=== PATIENT | male | born 1965 | race Caucasian/White ===

== ENCOUNTER 2020-01-14 12:52 | Outpatient (REF) | payer OTHER, SELFPAY | END 2020-01-14 12:53 | disposition home or self-care (01) | LOC: HO.LAB 12:52 | PROVIDERS: PCP Nurse Practitioner Family; Visit Provider Internal Medicine | DX: Z20.828 Contact with and (suspected) exposure to other viral communicable diseases (principal) | CPT/HCPCS: 87635 ==

== ENCOUNTER 2020-01-15 09:53 | Emergency (ER) | payer OTHER, SELFPAY ==
--- NOTE | 2020-01-15 10:25 | ED.ABDPAIN ---
HPI - Abdominal Pain General Chief Complaint: Abdominal Pain Stated Complaint: abd pain Time Seen by Provider: 01/15/20 10:25 Source: patient Mode of arrival: ambulatory Limitations: no limitations History of Present Illness MD elicited complaint: abdominal pain and flank pain Pertinent past history: myocardial infarction Onset (ago): day(s) (today) Pain Consistency: constant Location: LUQ and L flank Quality: burning Radiation: none Migration to: no migration Exacerbating factors: nothing Relieving factors: nothing Context: foreign travel Associated symptoms: nausea and chills Related Data Allergies Allergy/AdvReac Type Severity Reaction Status Date / Time bee pollen [BEE STINGS] Allergy Severe THROAT Unverified 12/19/19 16:49 SWELLING raspberry [RASPBERRY] Allergy Severe UNKNOWN Unverified 12/19/19 16:49 tadalafil [From CIALIS] Allergy Severe ANAPHYLAXIS Unverified 12/19/19 16:49 wool Allergy Intermediate RASH Unverified 12/19/19 16:49 cialis Allergy Unknown anaphylaxis Uncoded 09/26/19 00:00 hornet venom Allergy Unknown Uncoded 09/26/19 00:00 raspberry Allergy Unknown anaphylaxis Uncoded 09/26/19 00:00 Review of Systems Review of Systems Constitutional : No Weight loss, No Fever, positive Chills ENT/Mouth : No sore throat, No Rhinorrhea Eyes: No Swelling, No Redness Cardiovascular : No Chest Pain, No SOB, NoEdema Respiratory : No Cough, No Sputum, No Wheezing Gastrointestinal : Positive Nausea, no Vomiting, positive Diarrhea x 3, positive abdominal Pain, No Hematochezia, No Melena Genitourinary : No Dysuria, No Urinary Frequency, No Hematuria, No Urgency Musculoskeletal : No joint pain, No Myalgias, No Joint Swelling Skin : No Skin Lesions, No rash Neuro : No Weakness, No Numbness, No Dizziness, No Headache Psych : No Anxiety/Panic, No Depression Heme/Lymph: No Bruising, No Lymphadenopathy Endocrine : No Polyuria, No Polydipsia All other systems reviewed and are negative. Physical Exam Vital Signs: Vital Signs: Vital Signs Temp Pulse Resp BP Pulse Ox 01/15/20 10:54 98.9 F 93 18 136/88 96 Body Mass Index 28.5 Appearance: Alert. Oriented X3. No acute distress. Eyes: Pupils equal, round and reactive to light. ENT: Pharynx normal. Neck: Normal inspection. Neck supple. CVS: Normal heart rate and rhythm. Pulses normal. Respiratory: No respiratory distress. Breath sounds normal. Abdomen: Soft and mild ttp L abdomen no rebound or guarding Skin: Skin warm and dry. Normal skin color. Normal skin turgor. Extremities: No lower extremity edema. No calf ttp Neuro: Oriented X 3. No motor deficit. No sensory deficit. Course Course Course Narrative: negative CT scan and cxr other than constipation at this time BS elevated hydrated and insulin will refer to PCP, can be managed as outpatient at this time MDM - Abdominal Pain MDM Narrative Medical decision making narrative: 54 yo male with MM hx of RI (cocaine related) cardiac arrest due to substance abuse here with L sided abdominal pain just tested for COVID c/o diarrhea, will need labs, troponin, EKG, CXR, CT scan for renal colic, dispo per results and findings Lab Data Result diagrams: 01/15/20 11:19 01/15/20 11:19 Labs: Lab Results 01/15/20 01/15/20 01/15/20 Range/Units 11:19 11:19 11:19 WBC 5.4 (4.8-10.8) X10*3/uL RBC 4.79 (4.60-5.80) X10*6/uL Hgb 13.1 L (14.0-18.0) g/dl Hct 40.3 L (42-52) % MCV 84.1 (80-98) fL MCH 27.3 (27.0-33.0) pg MCHC 32.5 (31.0-36.0) g/dl RDW 13.6 (11.0-16.0) % Plt Count 233 (160-400) X10*3/uL MPV 12.5 H (9.4-12.4) fL Immature Gran % (Auto) 0.2 (0.0-0.4) % Neut % (Auto) 64.7 (45-73) % Lymph % (Auto) 21.8 (20-40) % [place] % (Auto) 9.6 (2-11) % Eos % (Auto) 3.0 (0-4) % Baso % (Auto) 0.7 (0-2) % Lymph # (Auto) 1.2 (1.2-4.9) X10*3/uL [place] # (Auto) 0.5 (0.1-1.2) X10*3/uL Eos # (Auto) 0.2 (0.0-0.4) X10*3/uL Baso # (Auto) 0.0 (0.0-0.2) X10*3/uL Abs Immat Gran (auto) 0.01 (0.00-0.03) X10*3/uL Absolute Neuts (auto) 3.5 (2.0-8.3) X10*3/uL Absolute Nucleated RBC 0.000 (0.0-0.012) X10*3/uL Nucleated RBC % (auto) 0.0 (0.0-0.2) /100WBC Hold Blue Top SEE NOTE Sodium 131 L (135-145) mmol/L Potassium 5.3 H (3.3-5.1) mmol/l Chloride 95 L (96-108) mmol/L Carbon Dioxide 28 (22-29) mmol/L Anion Gap 13 (12-20) BUN 19 H (9-16) mg/dL Creatinine 1.36 (0.5-1.4) mg/dL Estim Creat Clear Calc 82.2 Estimated GFR 54 Random Glucose 492 H* (60-115) mg/dL Calcium 9.3 (8.4-10.2) mg/dL Magnesium 1.7 (1.6-2.6) mg/dL Total Bilirubin 0.5 (0.0-1.0) mg/dL Direct Bilirubin < 0.2 (0.0-0.5) mg/dL AST 23 (5-37) U/L ALT 28 (0-40) U/L Alkaline Phosphatase 110 (39-117) U/L Troponin I High Sens (<3.5-35.0) ng/L Total Protein 7.6 (6.5-8.0) g/dL Albumin 4.2 (3.5-5.0) g/dL Lipase 50 (8-78) U/L Urine Color Urine Appearance Urine pH (5.0-8.0) Ur Specific [place] (1.005-1.025) Urine Protein (NEG-TRACE) MG/DL Urine Glucose (UA) (NEG) MG/DL Urine Ketones (NEG) MG/DL Urine Blood (NEG) Urine Nitrite (NEG) Ur Leukocyte Esterase (NEG) Urine RBC (0) /HPF Urine WBC (0-4) /HPF Ur Squamous Epith Cells /LPF Urine Bacteria /LPF Urine Opiates Screen (Not Detect) Ur Barbiturates Screen (Not Detect) Ur Phencyclidine Scrn (Not Detect) Ur Amphetamines Screen (Not Detect) U Benzodiazepines Scrn (Not Detect) Urine Cocaine Screen (Not Detect) U Marijuana (THC) Screen (Not Detect) 01/15/20 01/15/20 01/15/20 Range/Units 11:19 11:19 11:19 WBC (4.8-10.8) X10*3/uL RBC (4.60-5.80) X10*6/uL Hgb (14.0-18.0) g/dl Hct (42-52) % MCV (80-98) fL MCH (27.0-33.0) pg MCHC (31.0-36.0) g/dl RDW (11.0-16.0) % Plt Count (160-400) X10*3/uL MPV (9.4-12.4) fL Immature Gran % (Auto) (0.0-0.4) % Neut % (Auto) (45-73) % Lymph % (Auto) (20-40) % Twiggs % (Auto) (2-11) % Eos % (Auto) (0-4) % Baso % (Auto) (0-2) % Lymph # (Auto) (1.2-4.9) X10*3/uL [place] # (Auto) (0.1-1.2) X10*3/uL Eos # (Auto) (0.0-0.4) X10*3/uL Baso # (Auto) (0.0-0.2) X10*3/uL Abs Immat Gran (auto) (0.00-0.03) X10*3/uL Absolute Neuts (auto) (2.0-8.3) X10*3/uL Absolute Nucleated RBC (0.0-0.012) X10*3/uL Nucleated RBC % (auto) (0.0-0.2) /100WBC Hold Blue Top Sodium (135-145) mmol/L Potassium (3.3-5.1) mmol/l Chloride (96-108) mmol/L Carbon Dioxide (22-29) mmol/L Anion Gap (12-20) BUN (9-16) mg/dL Creatinine (0.5-1.4) mg/dL Estim Creat Clear Calc Estimated GFR Random Glucose (60-115) mg/dL Calcium (8.4-10.2) mg/dL Magnesium (1.6-2.6) mg/dL Total Bilirubin (0.0-1.0) mg/dL Direct Bilirubin (0.0-0.5) mg/dL AST (5-37) U/L ALT (0-40) U/L Alkaline Phosphatase (39-117) U/L Troponin I High Sens < 3.5 (<3.5-35.0) ng/L Total Protein (6.5-8.0) g/dL Albumin (3.5-5.0) g/dL Lipase (8-78) U/L Urine Color YELLOW Urine Appearance CLEAR Urine pH 5.5 (5.0-8.0) Ur Specific [place] 1.010 (1.005-1.025) Urine Protein NEG (NEG-TRACE) MG/DL Urine Glucose (UA) >=1000 H (NEG) MG/DL Urine Ketones NEG (NEG) MG/DL Urine Blood NEG (NEG) Urine Nitrite NEG (NEG) Ur Leukocyte Esterase NEG (NEG) Urine RBC 0-2 (0) /HPF Urine WBC 0 (0-4) /HPF Ur Squamous Epith Cells NONE /LPF Urine Bacteria NONE /LPF Urine Opiates Screen Not Detected (Not Detect) Ur Barbiturates Screen Not Detected (Not Detect) Ur Phencyclidine Scrn Not Detected (Not Detect) Ur Amphetamines Screen Not Detected (Not Detect) U Benzodiazepines Scrn Not Detected (Not Detect) Urine Cocaine Screen POSITIVE H (Not Detect) U Marijuana (THC) Screen Not Detected (Not Detect) ECG Data ECG interpretation date: 01/15/20 ECG interpretation time: 12:49 Interpretation: Rate: 76 Rhythm: NSR [place]: normal , LVH Normal P waves. Normal AHMET. Normal QRS complex. ST T wave : normal qTC: normal prior studies: no acute ischemia The study has been interpreted contemporaneously by me. . Discharge Plan Discharge Clinical Impression: Abdominal pain, Cocaine abuse, Hyperglycemia Patient Disposition: Home, Self-Care Instructions: Cocaine Abuse (ED), Abdominal Pain (ED), Diabetic Hyperglycemia (ED) Referrals: Za Hahn NP [Primary Care Provider] - 2 days PMF[facility] Past Medical History Attestation statement: The following information was validated with the patient. Source: old records reviewed Medical History Anxiety Asthma Depression Diabetes GERD (gastroesophageal reflux disease) Substance abuse Social History Social History Smoking Status: Never smoker Substance Use Type: Crack/Cocaine and Marijuana Substance Use Frequency: Occasionally Advance Directives: No Advance Directives Information Provided: No
--- NOTE | 2020-01-15 10:48 | CT_ITS ---
EXAMINATION: CT ABDOMEN AND PELVIS WITHOUT CONTRAST CLINICAL INFORMATION: Left-sided flank pain. Evaluate for stone. COMPARISON: Previous CT scans most recent August 2019 TECHNIQUE: Axial images through the abdomen and pelvis without oral or IV contrast. Sagittal and coronal reconstructions on the technologist workstation were performed. Patient dose 8 5 7 mg/cm. FINDINGS: The lung bases are clear. The liver is low in attenuation suggestive of fatty infiltration. The gallbladder is contracted. No focal liver lesion or biliary duct dilatation. The spleen, pancreas, and adrenal glands are unremarkable. There is a small low-attenuation lesion in the upper pole of the left kidney measuring 1 cm probably representing a cyst. No renal stone or hydronephrosis is seen. No ureteral dilatation or ureteral stone is seen. The bladder is unremarkable. The prostate gland is unremarkable. There is stool throughout the colon questionable for mild constipation. There are no dilated loops of bowel to suggest obstruction. The appendix is unremarkable. The stomach is unremarkable. There is a small umbilical hernia containing fat. There is fat in both inguinal canals. Vascular structures are unremarkable. No ascites or adenopathy is seen. There are old bilateral anterior rib fractures. There are mild degenerative disc disease of the lower lumbar spine. IMPRESSION: No stone or hydronephrosis seen. Probable small left renal cyst. Fatty liver. Stool throughout the colon questionable for constipation. EXAMINATION: Chest x-ray CLINICAL INFORMATION: Pain COMPARISON: Previous chest x-rays most recent August 2019 TECHNIQUE: AP portable chest FINDINGS: The cardiac and mediastinal contours are stable. The lungs are clear. There is no pleural effusion or pneumothorax. Bony structures are unremarkable. IMPRESSION: No evidence for acute disease in the chest.
--- NOTE | 2020-01-15 10:48 | ECG_ITS ---
Test Reason : ABDMINL PAIN Blood Pressure : / mmHG Vent. Rate : 076 BPM Atrial Rate : 076 BPM P-R Int : 182 ms QRS Dur : 104 ms QT Int : 400 ms P-R-T Axes : 038 -02 014 degrees QTc Int : 450 ms Normal sinus rhythm Voltage criteria for left ventricular hypertrophy Abnormal ECG When compared with ECG of 09-SEP-2019 16:25, Premature ventricular complexes are no longer Present Referred By: Sully Hall Electronically Signed By:BLANQUITA ZARATE MD
[2020-01-15 10:54] VITALS: BP 136/88; PULSE 93; RESP 18; TEMP 37.2; O2SAT 96; BMI 28.5
[2020-01-15] MEDS: Magnesium Hydrox/Alum Hydrox 30 ML ORAL.SUSP PO (11:22)
[2020-01-15] MEDS: Lidocaine HCl Viscous 2 % 15 ML SOLUTION MUCOUS MEM (11:22)
--- NOTE | 2020-01-15 11:27 | PC.NURSE ---
P[T HERE FOR COVID TEST. PREVIOUS + RESULT 5-6 WKS AGO, ROOMMATE RECENTLY RETESTED +. C/O ABD PAIN SINCE THIS AM, SHARP L SIDED, STARTS IN L FLANK. NO HX KIDNEY STONES. DENIES VOMTIING, FEVERS. SEVERAL SOFT STOOLS SINCE YESTERDAY. 10 PAIN, MEDICATED PER EMR. MISSED MTD DOSE THIS AM TO COME IN TO HOSPITAL. LABS SENT, CT SCAN AND CXR COMPLETED.
[2020-01-15 11:39] LABS: MANUAL DIFF FLAG NO
[2020-01-15 11:43] LABS: Basophils Percent Auto 0.7 % (0-2); Eosinophils Absolute Auto 0.2 X10*3/uL (0.0-0.4); Hematocrit 40.3 % (42-52); Hemoglobin 13.1 g/dl (14.0-18.0); Imm Gran Abs Auto 0.01 X10*3/uL (0.00-0.03); Imm Gran Pct Auto 0.2 % (0.0-0.4); Lymphocytes Absolute Auto 1.2 X10*3/uL (1.2-4.9); Lymphocytes Percent Auto 21.8 % (20-40); Mean Corpuscular HGB Conc 32.5 g/dl (31.0-36.0); Mean Corpuscular Hemoglobin 27.3 pg (27.0-33.0); Mean Corpuscular Volume 84.1 fL (80-98); Mean Platelet Volume 12.5 fL (9.4-12.4); Monocytes Absolute Auto 0.5 X10*3/uL (0.1-1.2); Monocytes Percent Auto 9.6 % (2-11); Neutrophils Absolute Auto 3.5 X10*3/uL (2.0-8.3); Neutrophils Percent Auto 64.7 % (45-73); Platelet Count 233 X10*3/uL (160-400); Red Blood Count 4.79 X10*6/uL (4.60-5.80); Red Cell Distribution Width 13.6 % (11.0-16.0); White Blood Count 5.4 X10*3/uL (4.8-10.8)
[2020-01-15 11:48] LABS: Glucose Urine UA >=1000 MG/DL (NEG); Leukocyte Esterase Urine NEG (NEG); Nitrite Urine NEG (NEG); PH 5.5 (5.0-8.0); Urine Blood NEG (NEG); Urine Ketones NEG (NEG); Urine Protein NEG (NEG-TRACE)
[2020-01-15 11:50] LABS: Appearance Urine CLEAR; Color Urine YELLOW
[2020-01-15 12:00] LABS: RBC Urine 0-2 /HPF (0); WBC Urine 0 /HPF (0-4)
[2020-01-15 12:22] LABS: Amphetamine Screen Urine Not Detected (Not Detect); Barbiturates, Urine Not Detected (Not Detect); Benzodiazepines Screen Urine Not Detected (Not Detect); Cannabinoid Screen Urine Not Detected (Not Detect); Cocaine Screen Urine POSITIVE (Not Detect); Opiate Screen Urine Not Detected (Not Detect); Phencyclidine Screen Urine Not Detected (Not Detect); Troponin-I High Sensitivity < 3.5 ng/L (<3.5-35.0)
[2020-01-15 12:29] LABS: Alanine Aminotransferase 28 U/L (0-40); Albumin Level 4.2 g/dL (3.5-5.0); Alkaline Phosphatase 110 U/L (39-117); Anion Gap 13 (12-20); Aspartate Amino Transferase 23 U/L (5-37); Bilirubin Direct < 0.2 mg/dL (0.0-0.5); Bilirubin Total 0.5 mg/dL (0.0-1.0); Blood Urea Nitrogen 19 mg/dL (9-16); Calcium 9.3 mg/dL (8.4-10.2); Carbon Dioxide 28 mmol/L (22-29); Chloride 95 mmol/L (96-108); Creatinine Clr Calc Pharmacy 82.2; Estimated Glomerular Filt Rate 54; Glucose Random 492 mg/dL (60-115); Lipase 50 U/L (8-78); Magnesium 1.7 mg/dL (1.6-2.6); Potassium 5.3 mmol/l (3.3-5.1); Sodium 131 mmol/L (135-145); Total Protein 7.6 g/dL (6.5-8.0)
[2020-01-15] MEDS: 0.9 % Sodium Chloride 1,000 ML 999 ML IVCONT (12:39)
[2020-01-15] MEDS: Insulin Regular, Human 100 UNIT/ML 3 ML VIAL 10 UNIT SUBCUT (12:39)
[2020-01-15 15:15] LABS: Glucose, Whole Blood 404 mg/dL (60-115)
[2020-01-15 18:33] LABS: Glucose, Whole Blood 340 mg/dL (60-115)
== END 2020-01-15 14:21 | disposition home or self-care (01) ==
PROVIDERS: Emergency Provider Emergency Medicine; PCP Nurse Practitioner Family
DX: R10.9 Unspecified abdominal pain (principal); F14.10 Cocaine abuse, uncomplicated; E11.65 Type 2 diabetes mellitus with hyperglycemia; Z79.899 Other long term (current) drug therapy
CPT/HCPCS: 36415; 71045; 74176; 80048; 80076; 80307; 81001; 82947; 83690; 83735; 84484; 85025; 93005; 96360; 99284

== ENCOUNTER → 2020-05-05 13:16 | Outpatient (BNVA) | payer OTHER, SELFPAY | PROVIDERS: PCP Nurse Practitioner Family; Visit Provider Internal Medicine Pulmonary Disease ==

== ENCOUNTER → 2020-05-14 13:16 | Outpatient (BNVA) | payer OTHER, SELFPAY | PROVIDERS: PCP Nurse Practitioner Family; Visit Provider Internal Medicine Pulmonary Disease | DX: J45.40 Moderate persistent asthma, uncomplicated (principal); Z91.09 Other allergy status, other than to drugs and biological substances | CPT/HCPCS: 99212 ==

== ENCOUNTER 2020-05-14 13:46 | Emergency (ER) | payer OTHER, SELFPAY ==
--- NOTE | ~2020-05-14 | CT_ITS ---
EXAMINATION: CT BRAIN AND CT CERVICAL SPINE WITHOUT CONTRAST. CLINICAL INFORMATION: Fall. COMPARISON: None TECHNIQUE: 5 mm thin axial and reformatted 2 mm thin sagittal and coronal images of brain were obtained. Subsequently axial 3 mm thin and reformatted 2 mm thin sagittal and coronal images of cervical spine were obtained. DLP [id number]. FINDINGS: Brain: There is no acute intra-axial, extra-axial bleed, masses or midline shift. There is no acute infarction in evolution. The lateral ventricles are symmetrical in size and configuration without enlargement. The cruz to white matter disease is maintained normal. Bone windows reveal no calvarial abnormality. There is no scalp soft tissue abnormality. Bilateral paranasal sinuses and mastoid air cells are well-aerated. Cervical spine: There is mild straightening of cervical lordosis. The vertebral heights and alignment is normal. There is loss of C5-C6 disc height with mild ventral and posterior spondylosis. The craniovertebral junction and C1-C2 alignment is normal. The prevertebral and parapharyngeal soft tissues are normal. The thyroid lobes are symmetrical and normal except for a punctate calcification left lobe.. The airway is widely patent. No abnormal neck lymph nodes or mass seen. CT/CT head/brain wo con IMPRESSION: No acute intracranial process seen. No acute fracture or dislocation cervical spine except for mild straightening of cervical lordosis. Degenerative disc changes with spondylosis C5-C6 disc level.
--- NOTE | ~2020-05-14 | CT_ITS ---
EXAMINATION: CT BRAIN AND CT CERVICAL SPINE WITHOUT CONTRAST. CLINICAL INFORMATION: Fall. COMPARISON: None TECHNIQUE: 5 mm thin axial and reformatted 2 mm thin sagittal and coronal images of brain were obtained. Subsequently axial 3 mm thin and reformatted 2 mm thin sagittal and coronal images of cervical spine were obtained. DLP [id number]. FINDINGS: Brain: There is no acute intra-axial, extra-axial bleed, masses or midline shift. There is no acute infarction in evolution. The lateral ventricles are symmetrical in size and configuration without enlargement. The cruz to white matter disease is maintained normal. Bone windows reveal no calvarial abnormality. There is no scalp soft tissue abnormality. Bilateral paranasal sinuses and mastoid air cells are well-aerated. Cervical spine: There is mild straightening of cervical lordosis. The vertebral heights and alignment is normal. There is loss of C5-C6 disc height with mild ventral and posterior spondylosis. The craniovertebral junction and C1-C2 alignment is normal. The prevertebral and parapharyngeal soft tissues are normal. The thyroid lobes are symmetrical and normal except for a punctate calcification left lobe.. The airway is widely patent. No abnormal neck lymph nodes or mass seen. CT/CT cervical spine wo con IMPRESSION: No acute intracranial process seen. No acute fracture or dislocation cervical spine except for mild straightening of cervical lordosis. Degenerative disc changes with spondylosis C5-C6 disc level.
--- NOTE | ~2020-05-14 | XR_ITS ---
EXAMINATION: XR SHOULDER, RIGHT CLINICAL INFORMATION: Fall, trauma, pain COMPARISON: Right shoulder radiographs 12/20/2014 TECHNIQUE: Right shoulder is imaged in 4 views. FINDINGS: There is no fracture or dislocation. The acromioclavicular alignment is normal. The right lung apex shows no pneumothorax. There are borderline degenerative changes acromioclavicular joint. Small subcortical cysts present greater tuberosity. No definite rotator cuff calcifications. XR/XR shoulder RT min 2V IMPRESSION: No fracture or dislocation.
--- NOTE | ~2020-05-14 | XR_ITS ---
EXAMINATION: XR FOREARM, RIGHT CLINICAL INFORMATION: Fall, trauma, pain COMPARISON: None TECHNIQUE: AP and lateral views of the right forearm were obtained. FINDINGS: There is no fracture or dislocation. The ulnar variance is near neutral. Bony mineralization is normal. No elbow capsular effusion. XR/XR forearm RT 2V IMPRESSION: No fracture or dislocation or elbow capsular effusion.
[2020-05-14 14:03] VITALS: BP 130/85; PULSE 86; RESP 16; TEMP 36.8; O2SAT 97; BMI 31.8
--- NOTE | 2020-05-14 14:41 | ED.GENADULT ---
HPI - General Adult General Chief complaint: General Medical Stated complaint: fell hurts all over Time Seen by Provider: 05/14/20 14:29 Source: patient Mode of arrival: ambulatory Limitations: no limitations History of Present Illness HPI narrative: Patient presents to ED due to falling on his right arm and right shoulder. Patient states he was in the street yesterday and he slipped on black ice and fell onto his right arm and right forearm. Patient states he did his head and had headache this morning but it resolved. Patient states he is on a aspirin. Patient denies any chest pain abdominal pain shortness of breath, headache, dizziness, blood in stool, vomiting blood, pain in lower extremity, or pain in left upper extremity. Related Data Previous Rx's Medication Instructions Recorded sennosides [senna] 8.6 mg PO BEDTIME PRN #30 cap 01/15/20 fluticasone 500 mcg-salmeterol 50 1 ea INHALATION BID #60 cap 05/06/20 mcg/dose blistr powdr for inhalation acetaminophen [Tylenol] 325 mg PO QID PRN #28 cap 05/14/20 Allergies Allergy/AdvReac Type Severity Reaction Status Date / Time bee pollen [BEE STINGS] Allergy Severe THROAT Verified 05/14/20 13:19 SWELLING raspberry [RASPBERRY] Allergy Severe UNKNOWN Verified 05/14/20 13:19 tadalafil [From CIALIS] Allergy Severe ANAPHYLAXIS Verified 05/14/20 13:19 wool Allergy Intermediate RASH Verified 05/14/20 13:19 Review of Systems Review of Systems: Yes all other systems are reviewed and are negative Constitutional: Constitutional: Reports as per HPI, Reports no additional constitutional complaints and Reports headache(s) (Resolved) Eyes: Eyes: Reports as per HPI and Reports no additional eye complaints ENT: Reports system reviewed and no additional complaints, except as documented, Reports as per HPI and Reports headache(s) (Resolved) Cardiovascular: Cardiovascular: Reports as per HPI and Reports no additional cardiovascular complaints Respiratory: Respiratory: Reports as per HPI and Reports no additional respiratory complaints Gastrointestinal: Gastrointestinal: Reports as per HPI and Reports no additional gastrointestinal complaints Genitourinary: Genitourinary: Reports no additional male genitourinary complaints and Reports as per HPI Musculoskeletal: Musculoskeletal: Reports no additional musculoskeletal complaints and Reports as per HPI Comments: Right shoulder and right forearm pain Neurologic: Reports system reviewed and no additional complaints, except as documented, Reports as per HPI and Reports headache(s) (Resolved) Psychiatric: Psychiatric: Reports no additional psychiatric complaints and Reports as per HPI [facility] Past Medical History Medical History Anxiety Asthma Depression Diabetes GERD (gastroesophageal reflux disease) Moderate persistent asthma Substance abuse Social History Social History Smoking Status: Never smoker Substance Use Type: Crack/Cocaine and Marijuana Advance Directives: No Advance Directives Information Provided: No Physical Exam Vital Signs: Vital Signs: Last Vital Signs Temp 95.6 F L 05/14/20 16:00 Pulse 78 05/14/20 16:00 Resp 18 05/14/20 16:00 BP 110/72 05/14/20 16:00 Pulse Ox 95 05/14/20 16:00 Body Mass Index 31.8 Const: General: cooperative, healthy appearing, comfortable, no acute distress, well developed, alert, awake and Physically active Orientation/consciousness: patient oriented x3 HENMT: Head: Yes normal to inspection, Yes No palpable skull fracture present, Yes normocephalic, Yes atraumatic, No abrasion, No Jerome's sign, No contusion, No cranial bruits, No hematoma, No laceration, No occipital foramen tenderness, No palpable skull fracture, No raccoon eyes, No scalp lesion, No scalp tenderness, No Temporal artery tenderness present and No periorbital ecchymosis Eyes: General: appearance normal, both eyes and all related structures Neck: Neck: Yes normal visual inspection, Yes full ROM, Yes no lymphadenopathy, Yes no meningeal signs, Yes trachea midline, Yes supple and No tender Chest: Other: Negative for ecchymosis Chest palpation & inspection: normal inspection of the chest and normal palpation of entire chest wall Resp: Effort & Inspection: normal respiratory effort and able to speak in complete sentences Auscultation: clear to auscultation bilaterally Cardio: Jugular venous distension: no JVD Heart sounds: S1 normal heart sound present and S2 normal heart sound present GI: Inspection: Yes normal to inspection and No abdominal wall ecchymosis Palpation (GI): Soft to palpation, not firm, nontender, no guarding and not rigid : General: No CVA tenderness and Yes no CVA tenderness Back/Spine/Pelvis: Back: no CVA tenderness, No CVA tenderness and No back tenderness Skin: General skin exam: no rashes or lesions noted and elasticity normal Neuro: General: patient oriented x3, gait normal, no meningeal signs and CN's II-XI intact bilaterally Cranial nerves: Yes CN's II-XII intact bilaterally Extrem: Other: Right upper extremity: Positive for shoulder and forearm tenderness. Negative for any ecchymosis or bruising of right upper extremity. Negative for any obvious deformity. Vascular/Neuro/motor extremities intact. All other extremities: Motor/neuro/vascular exam is intact. Negative for signs of trauma. Negative for any tenderness Psych: Appearance: grossly normal, well kempt and not disheveled Course Course Course Narrative: Due to being on aspirin patient will be sent for head CT and C-spine. Patient also sent for right arm and right forearm x-ray Reevaluation(s) Reevaluation #1: Upper extremity x-rays negative for fracture. Head CT C-spine came back normal. Patient is safe for discharge Time: 16:07 Medical Decision Making MDM Narrative Medical decision making narrative: Fall Discharge Plan Discharge Clinical Impression: Fall Patient Disposition: Home, Self-Care Instructions: Contusion in Adults (ED), Fall Prevention (ED) Additional Instructions: Return to the ED immediately for any abdominal pain, chest pain, shortness of breath, swelling of upper extremity, redness, coughing up blood, vomiting blood, abdominal pain, rectal bleeding, headache, dizziness, blood in urine, or any other concerning symptoms. Prescriptions: New acetaminophen [Tylenol] 325 mg capsule 325 mg PO QID PRN (Reason: pain) Qty: 28 RF: 0 No Action fluticasone propion-salmeterol 500-50 mcg/dose blister with device 1 ea inhalation BID Qty: 60 RF: 6 senna 8.6 mg capsule 8.6 mg PO BEDTIME PRN (Reason: constipation) Qty: 30 RF: 0 Referrals: Za Hahn NP [Primary Care Provider] - 2 days (Fall) Interventions: ED Discharge Assessment Last Done: 05/14/20 16:26 Discharge Date/Time: 05/14/20 16:26 Print Language: Omani
[2020-05-14 16:00] VITALS: BP 110/72; PULSE 78; RESP 18; TEMP 35.3; O2SAT 95
== END 2020-05-14 16:26 | disposition home or self-care (01) ==
PROVIDERS: Emergency Provider Internal Medicine; PCP Nurse Practitioner Family
DX: S40.011A Contusion of right shoulder, initial encounter (principal); M79.601 Pain in right arm; R51.9 Headache, unspecified; F14.90 Cocaine use, unspecified, uncomplicated; F12.90 Cannabis use, unspecified, uncomplicated; M54.2 Cervicalgia; W00.0XXA Fall on same level due to ice and snow, initial encounter; Y93.01 Activity, walking, marching and hiking; Y92.9 Unspecified place or not applicable; Y99.9 Unspecified external cause status; Z79.899 Other long term (current) drug therapy
CPT/HCPCS: 70450; 72125; 73030; 73090; 99284

== ENCOUNTER 2020-09-08 14:26 | Outpatient (REF) | payer OTHER, SELFPAY ==
--- NOTE | 2020-09-08 14:35 | ECG_ITS ---
Test Reason : QT PROLONGNATION Blood Pressure : / mmHG Vent. Rate : 083 BPM Atrial Rate : 083 BPM P-R Int : 172 ms QRS Dur : 104 ms QT Int : 386 ms P-R-T Axes : 045 013 031 degrees QTc Int : 453 ms Normal sinus rhythm Minimal voltage criteria for LVH, may be normal variant Nonspecific T wave abnormality Abnormal ECG When compared with ECG of 15-JAN-2020 12:24, No significant change was found Referred By: Saima Truong Electronically Signed By:ARYA SRINIVASAN MD
[2020-09-08 15:36] LABS: MANUAL DIFF FLAG NO
[2020-09-08 15:53] LABS: Basophils Percent Auto 0.4 % (0-2); Eosinophils Absolute Auto 0.1 X10*3/uL (0.0-0.4); Eosinophils Percent Auto 0.9 % (0-4); Hematocrit 42.4 % (42-52); Hemoglobin 14.1 g/dl (14.0-18.0); Imm Gran Abs Auto 0.02 X10*3/uL (0.00-0.03); Imm Gran Pct Auto 0.3 % (0.0-0.4); Lymphocytes Absolute Auto 1.4 X10*3/uL (1.2-4.9); Lymphocytes Percent Auto 20.2 % (20-40); Mean Corpuscular HGB Conc 33.3 g/dl (31.0-36.0); Mean Corpuscular Hemoglobin 27.9 pg (27.0-33.0); Mean Corpuscular Volume 83.8 fL (80-98); Monocytes Absolute Auto 0.5 X10*3/uL (0.1-1.2); Monocytes Percent Auto 7.5 % (2-11); Neutrophils Absolute Auto 4.8 X10*3/uL (2.0-8.3); Neutrophils Percent Auto 70.7 % (45-73); Platelet Count 185 X10*3/uL (160-400); Red Blood Count 5.06 X10*6/uL (4.60-5.80); Red Cell Distribution Width 12.7 % (11.0-16.0); White Blood Count 6.8 X10*3/uL (4.8-10.8)
[2020-09-08 16:10] LABS: Hemoglobin A1c % > 14.0 %
[2020-09-08 17:08] LABS: Alanine Aminotransferase 37 U/L (0-40); Albumin Level 4.1 g/dL (3.5-5.0); Alkaline Phosphatase 156 U/L (39-117); Anion Gap 12 (12-20); Aspartate Amino Transferase 20 U/L (5-37); Bilirubin Total 0.5 mg/dL (0.0-1.0); Blood Urea Nitrogen 22 mg/dL (9-16); Calcium 9.6 mg/dL (8.4-10.2); Carbon Dioxide 27 mmol/L (22-29); Chloride 93 mmol/L (96-108); Cholesterol 173 mg/dL; Estimated Glomerular Filt Rate 49; Potassium 5.2 mmol/L (3.3-5.1); Sodium 127 mmol/L (135-145); Total Protein 7.3 g/dL (6.5-8.0)
[2020-09-08 17:11] LABS: Glucose Random 629 mg/dL (60-115)
[2020-09-09 10:01] LABS: HBS Num1 0.32 mIU/mL (0-7.99); ~Hepatitis B Surface Antibody NONREACTIVE (Nonreactive)
[2020-09-09 10:05] LABS: ~HepC Num1 0.53 S/CO (0.00-0.79); ~Hepatitis C Antibody Nonreactive (Nonreactive)
[2020-09-09 10:35] LABS: HBc Num1 0.04 S/CO (0.00-0.79); Hepatitis B Core Antibody Nonreactive (Nonreactive); Hepatitis B Surface Antigen Negative (Negative)
[2020-09-10 17:36] LABS: HIV RNA PCR Qn Copies <20 NOT DETECTED copies/mL (NOT DETECTED); HIV RNA PCR Qn Log Copies <1.30 NOT DETECTED (NOT DETECTED)
== END 2020-09-08 14:27 | disposition home or self-care (01) ==
LOC: HO.LAB 14:26
PROVIDERS: Visit Provider Family Medicine
DX: R94.31 Abnormal electrocardiogram [ECG] [EKG] (principal); F11.20 Opioid dependence, uncomplicated
CPT/HCPCS: 36415; 80053; 82465; 83036; 85025; 86704; 86706; 86803; 87340; 87536; 93005

== ENCOUNTER 2021-04-10 20:38 | Emergency (ER) | payer OTHER, SELFPAY ==
[2021-04-10 20:41] VITALS: BP 150/86; PULSE 81; RESP 16; TEMP 37.1; O2SAT 99; BMI 31.1
--- NOTE | 2021-04-10 22:21 | ED_ITS ---
HPI - Wound/Laceration General Chief Complaint: Wound/Laceration Stated Complaint: Laceration to right thumb Time Seen by Provider: 04/10/21 22:20 Source: patient Mode of arrival: ambulatory History of Present Illness HPI narrative: 55-year-old male presents with right thumb laceration that occurred on a can of beans earlier today and denies being on blood thinners and has had a tetanus shot within the past 2 years. Related Data Previous Rx's Medication Instructions Recorded sennosides 8.6 mg capsule (senna) 8.6 mg PO BEDTIME PRN #30 cap 01/15/20 acetaminophen 325 mg capsule 325 mg PO QID PRN #28 cap 05/14/20 (Tylenol) fluticasone 500 mcg-salmeterol 50 1 ea INHALATION BID #60 cap 11/19/20 mcg/dose blistr powdr for inhalation Allergies Allergy/AdvReac Type Severity Reaction Status Date / Time bee pollen [BEE STINGS] Allergy Severe THROAT Verified 05/14/20 13:19 SWELLING raspberry [RASPBERRY] Allergy Severe UNKNOWN Verified 05/14/20 13:19 tadalafil [From CIALIS] Allergy Severe ANAPHYLAXIS Verified 05/14/20 13:19 wool Allergy Intermediate RASH Verified 05/14/20 13:19 Review of Systems Review of Systems: Pertinent positives and negatives as stated in HPI 10 point review of systems is otherwise negative. PMFSH Past Medical History Source: nursing notes reviewed Medical History Anxiety Asthma Depression Diabetes GERD (gastroesophageal reflux disease) Moderate persistent asthma Substance abuse Social History Social History Substance Use Type: Crack/Cocaine and Marijuana Advance Directives: No Advance Directives Information Provided: No Physical Exam Vital Signs: Vital Signs: Last Vital Signs Temp 98.7 F 04/10/21 20:41 Pulse 81 04/10/21 20:41 Resp 16 04/10/21 20:41 BP 150/86 H 04/10/21 20:41 Pulse Ox 99 04/10/21 20:41 BMI result Body Mass Index 31.1 VITAL SIGNS: Reviewed. GENERAL: Well developed, well nourished, in no acute distress. HEAD: Normocephalic/atraumatic EYES: PERRLA, EOMI LUNGS: Normal breath sounds. No adventitious sounds or accessory muscle use. SpO2<99> CARDIOVASCULAR: Regular rate and rhythm without noted murmurs ABDOMEN: Soft, non-tender, non-distended with bowel sounds. RIGHT THUMB: 2 cm laceration to the palmar aspect of right thumb, full range of motion intact, sensation intact, capillary refill less than 3 seconds NEUROLOGIC: Alert and oriented x 4. Course Course Course Narrative: 55-year-old male with history and clinical presentation consistent with uncomplicated laceration to right thumb, repaired without complications. Procedures Laceration Laceration 1: Site: hand Side (If applicable): right Size (cm): 2 Description: linear Depth: simple, single layer Local Anesthetic: lidocaine 2% Amount of anesthesia used (mL): 5 Pre-repair: wound explored, irrigated extensively and deep structures intact Skin layer closed with: nylon Size (cm): 3-0 Number of sutures: 4 Technique: simple, interrupted Discharge Plan Discharge Clinical Impression: Laceration of thumb, right Patient Disposition: Home, Self-Care Instructions: Care For Your Stitches (ED), Finger Laceration (ED) Additional Instructions: 1. Return for suture removal in 5 days. Use Tylenol/ibuprofen as needed for pain control. 2. Remove dressing in the morning, cleanse gently with soap and water, dry, apply antibiotic ointment and cover with a Band-Aid. Return to the ER for worsening symptoms. Prescriptions: No Action fluticasone propion-salmeterol 500-50 mcg/dose blister with device 1 ea inhalation BID Qty: 60 RF: 6 acetaminophen [Tylenol] 325 mg capsule 325 mg PO QID PRN (Reason: pain) Qty: 28 RF: 0 senna 8.6 mg capsule 8.6 mg PO BEDTIME PRN (Reason: constipation) Qty: 30 RF: 0 Referrals: [facility] [Primary Care Provider] - 2 days
[2021-04-10] MEDS: Lidocaine HCl 2 % MPF 5 ML VIAL INFILTRATI (22:23)
== END 2021-04-10 23:25 | disposition home or self-care (01) ==
PROVIDERS: Emergency Provider Student in an Organized Health Care Education/Training Program
DX: S61.011A Laceration without foreign body of right thumb without damage to nail, initial encounter (principal); W26.8XXA Contact with other sharp object(s), not elsewhere classified, initial encounter; Y93.G1 Activity, food preparation and clean up; Y92.030 Kitchen in apartment as the place of occurrence of the external cause; Y99.9 Unspecified external cause status
CPT/HCPCS: 12001; 99283; 99284

== ENCOUNTER 2021-05-11 10:47 | Emergency (ER) | payer OTHER, SELFPAY ==
--- NOTE | ~2021-05-11 | XR_ITS ---
EXAMINATION: XR LEFT SHOULDER, HUMERUS AND FOREARM CLINICAL INFORMATION: Fall, pain. COMPARISON: None. TECHNIQUE: 3 views of the left shoulder, 2 views of the left humerus and 2 views of the left forearm. FINDINGS: Left Shoulder: Bone alignment is normal. No fracture or dislocation is seen. The glenohumeral joint is normal. There is arthritis at the acromioclavicular joint. Soft tissues are unremarkable. Left Humerus: Bone alignment is normal. No fracture or dislocation is seen. The joint spaces are normal. Soft tissues are normal. Left Forearm: Bone alignment is normal. No fracture or dislocation is seen. There is a small osteophyte arising from the coronoid process. Joint spaces are otherwise normal. There is no elbow joint effusion. XR/XR humerus LT IMPRESSION: No fracture or dislocation.
--- NOTE | ~2021-05-11 | XR_ITS ---
EXAMINATION: XR LEFT SHOULDER, HUMERUS AND FOREARM CLINICAL INFORMATION: Fall, pain. COMPARISON: None. TECHNIQUE: 3 views of the left shoulder, 2 views of the left humerus and 2 views of the left forearm. FINDINGS: Left Shoulder: Bone alignment is normal. No fracture or dislocation is seen. The glenohumeral joint is normal. There is arthritis at the acromioclavicular joint. Soft tissues are unremarkable. Left Humerus: Bone alignment is normal. No fracture or dislocation is seen. The joint spaces are normal. Soft tissues are normal. Left Forearm: Bone alignment is normal. No fracture or dislocation is seen. There is a small osteophyte arising from the coronoid process. Joint spaces are otherwise normal. There is no elbow joint effusion. XR/XR forearm LT 2V IMPRESSION: No fracture or dislocation.
--- NOTE | ~2021-05-11 | XR_ITS ---
EXAMINATION: XR LEFT SHOULDER, HUMERUS AND FOREARM CLINICAL INFORMATION: Fall, pain. COMPARISON: None. TECHNIQUE: 3 views of the left shoulder, 2 views of the left humerus and 2 views of the left forearm. FINDINGS: Left Shoulder: Bone alignment is normal. No fracture or dislocation is seen. The glenohumeral joint is normal. There is arthritis at the acromioclavicular joint. Soft tissues are unremarkable. Left Humerus: Bone alignment is normal. No fracture or dislocation is seen. The joint spaces are normal. Soft tissues are normal. Left Forearm: Bone alignment is normal. No fracture or dislocation is seen. There is a small osteophyte arising from the coronoid process. Joint spaces are otherwise normal. There is no elbow joint effusion. XR/XR shoulder LT min 2V IMPRESSION: No fracture or dislocation.
[2021-05-11 10:55] VITALS: BP 152/91; PULSE 100; RESP 16; TEMP 36.3; O2SAT 97; BMI 31.1
[2021-05-11 13:27] VITALS: BP 123/80; PULSE 18; RESP 80; TEMP 36.4; O2SAT 96
--- NOTE | 2021-05-11 13:33 | ED.FALL ---
HPI - Fall General Chief Complaint: Fall Stated Complaint: Fall 05/10 Time Seen by Provider: 05/11/21 13:25 Source: patient History of Present Illness HPI Narrative: Patient states yesterday he had a slip and fall on the ice. He landed on his left side. He tried to get up and slipped again landing on the same side. He complains of pain to his left shoulder arm and elbow. Also little bit in his left hip. He can ambulate without difficulty. Range of motion is limited at his left shoulder. He can fully move at the elbow and wrist however. No weakness numbness paresthesias No neck back chest abdomen or other extremity injury He did not hit his head No loss of consciousness Related Data Previous Rx's Medication Instructions Recorded sennosides 8.6 mg capsule (senna) 8.6 mg PO BEDTIME PRN #30 cap 01/15/20 acetaminophen 325 mg capsule 325 mg PO QID PRN #28 cap 05/14/20 (Tylenol) fluticasone 500 mcg-salmeterol 50 1 ea INHALATION BID #60 cap 11/19/20 mcg/dose blistr powdr for inhalation cyclobenzaprine 10 mg tablet 10 mg PO TID PRN #20 tab 05/11/21 ibuprofen 800 mg tablet 800 mg PO TID PRN #30 tab 05/11/21 Allergies Allergy/AdvReac Type Severity Reaction Status Date / Time bee pollen [BEE STINGS] Allergy Severe THROAT Verified 05/14/20 13:19 SWELLING raspberry [RASPBERRY] Allergy Severe UNKNOWN Verified 05/14/20 13:19 tadalafil [From CIALIS] Allergy Severe ANAPHYLAXIS Verified 05/14/20 13:19 wool Allergy Intermediate RASH Verified 05/14/20 13:19 Review of Systems Constitutional: Comments: No weakness or malaise ENT: Comments: No head or face injury Cardiovascular: Comments: No chest pain Respiratory: Comments: No dyspnea Gastrointestinal: Comments: No abdominal pain Musculoskeletal: Comments: Upper extremity pain as noted in HPI Integumentary/Breasts: Comments: No ecchymosis, abrasion, lacerations or rash Neurologic: Comments: No weakness numbness or paresthesias. History of neuropathy Endocrine: Comments: History of diabetes [facility] Past Medical History Medical History Anxiety Asthma Depression Diabetes GERD (gastroesophageal reflux disease) Moderate persistent asthma Substance abuse Social History Social History Substance Use Type: Crack/Cocaine and Marijuana Advance Directives: No Advance Directives Information Provided: No Physical Exam Vital Signs: Vital Signs: Last Vital Signs Temp 97.5 F 05/11/21 13:27 Pulse 18 L 05/11/21 13:27 Resp 80 H 05/11/21 13:27 BP 123/80 05/11/21 13:27 Pulse Ox 96 05/11/21 13:27 BMI result Body Mass Index 31.1 Const: Other: Awake and alert no acute distress. Ambulates without difficulty HENMT: Other: Normocephalic atraumatic Neck: Other: No midline CTL or S spine tenderness Chest: Other: No chest tenderness Resp: Other: Clear and equal bilaterally without wheezes rales or rhonchi Cardio: Other: Regular rate rhythm without murmurs rubs or gallops Skin: Other: No ecchymosis or abrasions or lacerations noted no rash Neuro: Other: Awake and alert. No neurologic deficits. Full range of motion left hand with normal circulation sensation motor Extrem: Other: Left shoulder with very limited range of motion. Some anterior tenderness. No obvious deformity. Mild tenderness along the upper arm to the elbow. Elbow with full range of motion. Wrist with flexion extension and supination and pronation without difficulty Course Course Course Narrative: Shoulder dislocation versus contusion Shortness brain Humerus fracture Elbow fracture Four fracture X-ray of shoulder and upper arm and lower arm show no evidence of fracture dislocation. Will treat with sling. Ibuprofen and cyclobenzaprine Discharge Plan Discharge Clinical Impression: Other sprain of left shoulder joint, initial encounter Patient Disposition: Home, Self-Care Instructions: Shoulder Sprain (ED) Prescriptions: New ibuprofen 800 mg tablet 800 mg PO TID PRN (Reason: pain) Qty: 30 0RF cyclobenzaprine 10 mg tablet 10 mg PO TID PRN (Reason: muscle spasm) Qty: 20 0RF No Action fluticasone propion-salmeterol 500-50 mcg/dose blister with device 1 ea inhalation BID Qty: 60 6RF acetaminophen [Tylenol] 325 mg capsule 325 mg PO QID PRN (Reason: pain) Qty: 28 0RF senna 8.6 mg capsule 8.6 mg PO BEDTIME PRN (Reason: constipation) Qty: 30 0RF Referrals: Kendall Walker MD [Physician] - 2 days
== END 2021-05-11 14:04 | disposition home or self-care (01) ==
PROVIDERS: Emergency Provider Emergency Medicine
DX: S43.402A Unspecified sprain of left shoulder joint, initial encounter (principal); M25.512 Pain in left shoulder; F14.90 Cocaine use, unspecified, uncomplicated; W00.0XXA Fall on same level due to ice and snow, initial encounter; Y93.9 Activity, unspecified; Y92.9 Unspecified place or not applicable; Y99.9 Unspecified external cause status; Z79.899 Other long term (current) drug therapy
CPT/HCPCS: 73030; 73060; 73090; 99283

== ENCOUNTER 2021-08-01 18:21 | Emergency (ER) | payer OTHER, SELFPAY | END 2021-08-01 19:52 | disposition left against medical advice (07) | PROVIDERS: Emergency Provider Emergency Medicine | DX: F41.0 Panic disorder [episodic paroxysmal anxiety] (principal) ==

== ENCOUNTER 2021-08-01 20:19 | Emergency (ER) | payer OTHER, SELFPAY ==
[2021-08-01 21:11] VITALS: BP 102/84; PULSE 93; RESP 17; TEMP 36.3; O2SAT 97; BMI 33.0
[2021-08-01 21:31] LABS: Glucose, Whole Blood 153 mg/dL (60-115)
--- NOTE | 2021-08-01 22:38 | ED_ITS ---
HPI - Anxiety General Chief Complaint: Anxiety <SYLVIA Flores - Last Filed: 08/01/21 22:49> Stated Complaint: Anxiety <SYLVIA Flores Last Filed: 08/01/21 22:49> Time Seen by Provider: 08/01/21 22:38 <SYLVIA Flores Last Filed: 08/01/21 22:49> Source: patient <SYLVIA Flores Last Filed: 08/01/21 22:49> Mode of arrival: ambulatory <SYLVIA Flores Last Filed: 08/01/21 22:49> Limitations: no limitations <SYLVIA Flores Last Filed: 08/01/21 22:49> History of Present Illness HPI narrative: This is a 56-year-old male past medical history significant for anxiety, opiate use disorder, cocaine use disorder, asthma presenting to the emergency department with complaints of anxiety x1 day. Patient tells me he is feeling short of breath particularly in the he. He tells me he has been feeling off Ali anxious and he cannot stay still. He reports that he is under lot of pressure. He tells me he is on probation he is currently staying at [facility], he tells me his life situations making him anxious. He tells me he is having palpitations and he feels slightly short of breath. Patient telling me he does not want a medical workup he just needs somebody to talk to. He tells me is a therapist however he has not been talking to them as much as usual. He admits to cocaine use about 10 days ago however he tells me has not used any drugs since then. He denies chest pain, nausea, vomiting, abdominal pain, headache, dizziness, weakness. Patient has no known cardiac history. He tells me that this has happened him a foreign as always been a panic attack. Denies suicidal ideation and homicidal ideation. <SYLVIA Flores Last Filed: 08/01/21 22:49> MD complaint: anxiety <SYLVIA Flores Last Filed: 08/01/21 22:49> Onset (ago): day(s) (1) <SYLVIA Flores Last Filed: 08/01/21 22:49> Symptoms: palpitations <SYLVIA Flores - Last Filed: 08/01/21 22:49> Severity: mild <SYLVIA Flores - Last Filed: 08/01/21 22:49> Quality: constant <SYLVIA Flores - Last Filed: 08/01/21 22:49> Place: home <SYLVIA Flores - Last Filed: 08/01/21 22:49> History of similar episodes: Yes <SYLVIA Flores - Last Filed: 08/01/21 22:49> Provoking factors: none known <SYLVIA Flores - Last Filed: 08/01/21 22:49> Relieving factors: nothing <SYLVIA Flores - Last Filed: 08/01/21 22:49> Exacerbating factors: nothing <SYLVIA Flores - Last Filed: 08/01/21 22:49> Associated symptoms: shortness of breath <SYLVIA Flores - Last Filed: 08/01/21 22:49> Related Data Home Medications: Previous Rx's Medication Instructions Recorded sennosides 8.6 mg capsule (senna) 8.6 mg PO BEDTIME PRN #30 cap 01/15/20 acetaminophen 325 mg capsule 325 mg PO QID PRN #28 cap 05/14/20 (Tylenol) cyclobenzaprine 10 mg tablet 10 mg PO TID PRN #20 tab 05/11/21 ibuprofen 800 mg tablet 800 mg PO TID PRN #30 tab 05/11/21 fluticasone 500 mcg-salmeterol 50 1 ea INHALATION BID #60 cap 06/23/21 mcg/dose blistr powdr for inhalation <SYLVIA Flores - Last Filed: 08/01/21 22:49> Allergies/Adverse Reactions: Allergies Allergy/AdvReac Type Severity Reaction Status Date / Time bee pollen [BEE STINGS] Allergy Severe THROAT Verified 08/02/21 01:42 SWELLING raspberry [RASPBERRY] Allergy Severe UNKNOWN Verified 08/02/21 01:42 tadalafil [From CIALIS] Allergy Severe ANAPHYLAXIS Verified 08/02/21 01:42 wool Allergy Intermediate RASH Verified 08/02/21 01:42 <SYLVIA Flores - Last Filed: 08/01/21 22:49> Review of Systems Review of Systems: Constitutional : No Weight loss, No Fever, No Chills, No Fatigue, No Malaise ENT/Mouth : No sore throat, No Rhinorrhea Eyes: No Eye Pain, No Swelling, No Redness Cardiovascular : No Chest Pain, + SOB, No Dyspnea on Exertion, No Orthopnea, No Edema, + Palpitations Respiratory : No Cough, No Sputum, No Wheezing Gastrointestinal : No Nausea, No Vomiting, No Diarrhea, No Constipation, No abdominal Pain, No Hematochezia, No Melena Genitourinary : No Dysuria, No Urinary Frequency, No Hematuria, Musculoskeletal : No joint pain, No Myalgias, No Joint Swelling Skin : No Skin Lesions, No rash Neuro : No Weakness, No Numbness, No Dizziness, No Headache Psych : + Anxiety/Panic, No Depression, No SI/HI All other systems reviewed and are negative <SYLVIA Flores Last Filed: 08/01/21 22:49> [facility] Past Medical History Medical History: Medical History Anxiety Asthma Depression Diabetes GERD (gastroesophageal reflux disease) Moderate persistent asthma Substance abuse <SYLVIA Flores - Last Filed: 08/01/21 22:49> Social History Social History: Social History Substance Use Type: Crack/Cocaine and Marijuana <SYLVIA Flores Last Filed: 08/01/21 22:49> Physical Exam Vital Signs: Vital Signs: Last Vital Signs Temp 97.3 F 08/01/21 21:11 Pulse 93 08/01/21 21:11 Resp 17 08/01/21 21:11 BP 102/84 08/01/21 21:11 Pulse Ox 97 08/01/21 21:11 BMI result Body Mass Index 33.0 Vital sign stable <SYLVIA Flores Last Filed: 08/01/21 22:49> Appearance: Alert.? Oriented X3.? No acute distress.? Head: Normocephalic, atraumatic, no step-offs or deformities Eyes: Pupils equal, round and reactive to light.? ENT: Pharynx normal.? Neck: Normal inspection.? Neck supple.? CVS: Normal heart rate and rhythm.? Pulses normal.? Respiratory: No respiratory distress.? Breath sounds normal.? Abdomen: Soft and nontender.? Skin: Skin warm and dry.? Normal skin color.? Normal skin turgor.? Extremities: No lower extremity edema.? No calf ttp. 5/5 strength to bilateral upper and lower extremities Back: No midline tenderness, no C-spine tenderness, full range of motion, no CVA tenderness bilaterally Neuro: Oriented X 3.? No motor deficit.? No sensory deficit. CN 2-12 intact <SYLVIA Flores - Last Filed: 08/01/21 22:49> Course Reevaluation(s) Reevaluation #1: Patient is refusing labs, troponin, D-dimer, chest x-ray, EKG. Patient's telling me he knows that this is anxiety. I explained to him that I cannot rule out heart attack, stroke, or other life-threatening diagnoses. Patient tells me that is okay and he is willing to sign out against medical advice. He tells me after speaking to me he feels much better and he feels calm. He tells me that he will follow up tomorrow morning with [facility]. If he continues to have new or worsening symptoms he will return. I did offer for patient to speak to somebody from the care team however he tells me at that he would not like to wait and he would just like to go home as he is feeling better. Denies suicidal ideation and homicidal ideation. <SYLVIA Flores - Last Filed: 08/01/21 22:49> Time: 22:44 <SYLVIA Flores - Last Filed: 08/01/21 22:49> MDM - Anxiety MDM Narrative Medical decision making narrative: [id number] 56-year-old male presents with anxiety , shortness of breath, palpitations X1 day. PE benign Plan- labs, EKG, troponin, chest x-ray, urine, WATT. <SYLVIA Flores - Last Filed: 08/01/21 22:49> Medical Records Attestation: I reviewed the patient's medical records. <SYLVIA Flores - Last Filed: 08/01/21 22:49> Lab Data Attestation: I reviewed the patient's lab results. <SYLVIA Flores - Last Filed: 08/01/21 22:49> Labs: Lab Results 08/01/21 Range/Units 21:27 POC Glucose 153 H (60-115) mg/dL <SYLVIA Flores - Last Filed: 08/01/21 22:49> Critical Care Time Critical Care Time Critical Care Time: No <SYLVIA Flores Last Filed: 08/01/21 22:49> Discharge Plan Discharge Clinical Impression: Acute anxiety, Shortness of breath, Palpitations, Left against medical advice <SYLVIA Flores Last Filed: 08/01/21 22:49> Patient Disposition: Left Against Medical Advice <SYLVIA Flores Last Filed: 08/01/21 22:49> Instructions: Anxiety (ED), Shortness of Breath (ED) <SYLVIA Flores - Last Filed: 08/01/21 22:49> Additional Instructions: Take your medications as prescribed. If you were prescribed antibiotics today, it is important that you take your medication to their entirety, do not skip any doses, do not finish them early. Follow-up with your primary care provider this week. Return to the emergency department with new or worsening symptoms. Such as fevers, chills, chest pain, shortness of breath, nausea, vomiting, dizziness, headache, vision changes, lethargy In case of emergency call 911 You refused labs, imaging, cardiac enzymes and a cardiac workup, this means that we can potentially miss life-threatening diagnoses such as a heart attack, pulmonary embolism, blood clot Amongst many other conditions. Leaving against medical advice means your condition could worsen, decreased quality of life, , infection, stroke, heart attack could occur. Ypu verbalized understanding after leaving against medical advice and you sign paperwork. If you decide to return please return for further evaluation <SYLVIA Flores - Last Filed: 08/01/21 22:49> Prescriptions: No Action fluticasone propion-salmeterol 500-50 mcg/dose blister with device 1 ea inhalation BID Qty: 60 6RF acetaminophen [Tylenol] 325 mg capsule 325 mg PO QID PRN (Reason: pain) Qty: 28 0RF senna 8.6 mg capsule 8.6 mg PO BEDTIME PRN (Reason: constipation) Qty: 30 0RF ibuprofen 800 mg tablet 800 mg PO TID PRN (Reason: pain) Qty: 30 0RF cyclobenzaprine 10 mg tablet 10 mg PO TID PRN (Reason: muscle spasm) Qty: 20 0RF <SYLVIA Flores - Last Filed: 08/01/21 22:49> Referrals: [facility] [Primary Care Provider] - 2 days <SYLVIA Flores - Last Filed: 08/01/21 22:49> Stand Alone Forms: Against Medical Advice <SYLVIA Flores - Last Filed: 08/01/21 22:49> Interventions: ED Discharge Assessment Last Done: 08/01/21 23:02 <SYLVIA Flores - Last Filed: 08/01/21 22:49> Discharge Date/Time: 08/01/21 23:04 <SYLVIA Flores - Last Filed: 08/01/21 22:49>
[2021-08-01] MEDS: hydrOXYzine HCL 25 MG TABLET PO (22:51)
--- NOTE | 2021-08-01 22:54 | PC.NURSE ---
patient not exhibiting any signs of suicidal ideation or self harm.
== END 2021-08-01 23:04 | disposition left against medical advice (07) ==
PROVIDERS: Emergency Provider Emergency Medicine
DX: F41.9 Anxiety disorder, unspecified (principal); R06.02 Shortness of breath; R00.2 Palpitations; J45.40 Moderate persistent asthma, uncomplicated; E11.9 Type 2 diabetes mellitus without complications
CPT/HCPCS: 82947; 99283

== ENCOUNTER 2021-08-02 00:39 | Emergency (ER) | payer OTHER, SELFPAY ==
[2021-08-02 01:43] VITALS: BP 120/72; PULSE 98; RESP 16; TEMP 36.6; O2SAT 98; BMI 29.3
--- NOTE | 2021-08-02 08:15 | ECG_ITS ---
Test Reason : ANXIETY Blood Pressure : / mmHG Vent. Rate : 090 BPM Atrial Rate : 090 BPM P-R Int : 176 ms QRS Dur : 106 ms QT Int : 406 ms P-R-T Axes : 045 -03 037 degrees QTc Int : 496 ms Normal sinus rhythm Minimal voltage criteria for LVH, may be normal variant ( R in aVL ) Nonspecific T wave abnormality Abnormal ECG When compared with ECG of 08-SEP-2020 14:40, No significant change was found Referred By: Gayle Evans Electronically Signed By:ARYA SRINIVASAN MD
--- NOTE | 2021-08-02 08:18 | ED_ITS ---
HPI - Anxiety General Chief Complaint: Anxiety Stated Complaint: Anxiety Time Seen by Provider: 08/02/21 06:36 Source: patient Mode of arrival: ambulatory Limitations: no limitations History of Present Illness HPI narrative: Patient comes emergency room complaining of anxiety. Patient states that 5 years ago he lost his , since then he has not been doing well. Patient denies depression or suicidal ideation. Patient is on several medications for both anxiety and depression, also states that he has a therapist, every week they have a 45 minute session. Patient was here earlier today. Patient refused any labs, patient requesting to have input from the Care Team. Patient denies chest pain, no shortness of breath. Related Data Previous Rx's Medication Instructions Recorded sennosides 8.6 mg capsule (senna) 8.6 mg PO BEDTIME PRN #30 cap 01/15/20 acetaminophen 325 mg capsule 325 mg PO QID PRN #28 cap 05/14/20 (Tylenol) cyclobenzaprine 10 mg tablet 10 mg PO TID PRN #20 tab 05/11/21 ibuprofen 800 mg tablet 800 mg PO TID PRN #30 tab 05/11/21 fluticasone 500 mcg-salmeterol 50 1 ea INHALATION BID #60 cap 06/23/21 mcg/dose blistr powdr for inhalation Allergies Allergy/AdvReac Type Severity Reaction Status Date / Time bee pollen [BEE STINGS] Allergy Severe THROAT Verified 08/02/21 01:42 SWELLING raspberry [RASPBERRY] Allergy Severe UNKNOWN Verified 08/02/21 01:42 tadalafil [From CIALIS] Allergy Severe ANAPHYLAXIS Verified 08/02/21 01:42 wool Allergy Intermediate RASH Verified 08/02/21 01:42 Review of Systems Review of Systems: Constitutional : No Weight loss, No Fever, No Chills, No Night Sweats, No Fatigue, No Malaise ENT/Mouth : No Hearing loss, No Ear Pain, No Nasal Congestion, No Sinus Pain, No Hoarseness, No sore throat, No Rhinorrhea, No Swallowing Difficulty Eyes: No Eye Pain, No Swelling, No Redness, No Foreign Body, No Discharge, No Vision Changes Cardiovascular : No Chest Pain, No SOB, No Dyspnea on Exertion, No Orthopnea, No Edema, No Palpitations Respiratory : No Cough, No Sputum, No Wheezing, No Smoke Exposure, No Dyspnea Gastrointestinal : No Nausea, No Vomiting, No Diarrhea, No Constipation, No abdominal Pain, No Hematochezia, No Melena Genitourinary : no irregular bleeding, No Dysuria, No Urinary Frequency, No Hematuria, No Urinary Incontinence, No Urgency, No Flank Pain, No Urinary Flow Changes, No Hesitancy Musculoskeletal : No joint pain, No Myalgias, No Joint Swelling Skin : No Skin Lesions, No rash Neuro : No Weakness, No Numbness, No Paresthesias, No Loss of Consciousness, No Dizziness, No Headache Psych : Complaining of anxiety, No Depression, No SI/HI/AH/VH, No Social Issues, Heme/Lymph: No Bruising, No Bleeding,No Lymphadenopathy Endocrine : No Polyuria, No Polydipsia, No Temperature Intolerance PMFSH Past Medical History Medical History Anxiety Asthma Depression Diabetes GERD (gastroesophageal reflux disease) Moderate persistent asthma Substance abuse Social History Social History Substance Use Type: Crack/Cocaine and Marijuana Advance Directives: No Advance Directives Information Provided: No Physical Exam Vital Signs: Vital Signs: Last Vital Signs Temp 97.8 F 08/02/21 01:43 Pulse 98 08/02/21 01:43 Resp 16 08/02/21 01:43 BP 120/72 08/02/21 01:43 Pulse Ox 98 08/02/21 01:43 BMI result Body Mass Index 29.3 Const: Other: Appearance: Alert. Oriented X3. No acute distress. Well-appearing Eyes: Pupils equal, round and reactive to light. ENT: Pharynx normal. Neck: Normal inspection. Neck supple. No lymph nodes noted. No crepitus CVS: Normal heart rate and rhythm. Pulses normal. Normal S1 and S2 Respiratory: No respiratory distress. Breath sounds normal. No Wheezing. No rales Abdomen: Soft and nontender. No rigidity. No distention. Skin: Skin warm and dry. Normal skin color. Normal skin turgor. Extremities: No lower extremity edema. No Lacerations. No Rash Neuro: Oriented X 3. No motor deficit. No sensory deficit. Moving all extremities. No slurred speech. CN 2 through 12 grossly intact Psych: calm, cooperative, anxious Course Course Course Narrative: EKG pending. Patient has chest pain and shortness of breath. Care team consult pending. Physician fernie reilly started at 08:22 Patient was evaluated by [facility]. He will call his insurance to check her they can provide him with any further services. They will also call him for a follow-up tomorrow. Patient may be discharged home. EKG does not show any acute abnormalities. Patient ready for discharge MDM - Anxiety ECG Data Attestation: I personally reviewed and interpreted this ECG as follows: (Sinus rhythm, heart rate 90, no ST segment depression or elevation, no T-wave inversion, QTC 496) Discharge Plan Discharge Clinical Impression: Acute anxiety Patient Disposition: Home, Self-Care Instructions: Anxiety (ED) Additional Instructions: Please follow-up with your primary care physician tomorrow. If you have any worsening or new symptoms, please return to the emergency room or call 911 Prescriptions: No Action fluticasone propion-salmeterol 500-50 mcg/dose blister with device 1 ea inhalation BID Qty: 60 6RF acetaminophen [Tylenol] 325 mg capsule 325 mg PO QID PRN (Reason: pain) Qty: 28 0RF senna 8.6 mg capsule 8.6 mg PO BEDTIME PRN (Reason: constipation) Qty: 30 0RF ibuprofen 800 mg tablet 800 mg PO TID PRN (Reason: pain) Qty: 30 0RF cyclobenzaprine 10 mg tablet 10 mg PO TID PRN (Reason: muscle spasm) Qty: 20 0RF
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
--- NOTE | 2021-08-02 14:29 | MHC.CARE ---
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 They will send a message to the rn transitional care who will call back to discuss patient's needs.
--- NOTE | 2021-08-03 13:46 | MHC.CARE ---
CARE Team reached out to patient as a follow up to yesterday when he came to the ED reporting overwhelming anxiety, informed him that a call was placed to his healthcare educator yesterday. Patient reported that he is feeling ok, except for a dry throat.
--- NOTE | 2021-08-03 13:58 | MHC.CARE ---
Call from Form Presser, Ayala, at [facility]. She has been unable to reach patient, in the past she reminds patient of appts at PCP office. Discussed his memory issues and struggles with executive functioning, she considered him appropriate for [facility] care and Quality of Life day treatment and will reach out to patient and speak to him today.
== END 2021-08-02 09:45 | disposition home or self-care (01) ==
PROVIDERS: Emergency Provider Emergency Medicine
DX: F41.1 Generalized anxiety disorder (principal); F43.0 Acute stress reaction; F14.10 Cocaine abuse, uncomplicated; F12.90 Cannabis use, unspecified, uncomplicated; Z79.899 Other long term (current) drug therapy
CPT/HCPCS: 93005; 99283; 99284

== ENCOUNTER 2022-10-17 08:49 | Inpatient (IN) | payer OTHER, SELFPAY ==
[2022-10-17] VITALS (9 sets, daily range): BP systolic 107–161; BP diastolic 61–81; PULSE 89–150; RESP 16–22; TEMP 36.6–37; O2SAT 90–98; BMI 28.6
--- NOTE | ~2022-10-17 | CT_ITS ---
EXAMINATION: CT ANGIOGRAM OF THE CHEST WITH AND WITHOUT CONTRAST (CT PULMONARY ANGIOGRAM FOR PE) CLINICAL INFORMATION: Reason for Exam elevated d-dimer COMPARISON: None available. TECHNIQUE: Prior to contrast administration, noncontrast localization images were obtained. Subsequently, multidetector volumetric imaging was performed from the thoracic inlet to below the diaphragms following the administration of 80 mL Omnipaque 350 intravenous contrast. No contrast reaction reported Sagittal, coronal, and MIP oblique sagittal reformatted images were obtained on the CT workstation, uploaded to PACS, and reviewed. This CT examination was performed using dose optimization techniques as appropriate, variously including the following: *Automated exposure control *Adjustment of mA and/or kV according to patient size (this includes techniques or standardized protocols for targeted exams where dose is matched to indication/reason for exam; i.e. extremities or head) *Use of iterative reconstruction technique Total exam dose-length product 387 mGy-cm FINDINGS: QUALITY OF STUDY/CONTRAST BOLUS: Satisfactory. PULMONARY ARTERIES: No pulmonary emboli. THORACIC AORTA: No aneurysm. LUNG: The lungs are well-expanded with diffuse airspace opacities seen throughout the right lung suggestive of infiltrate. Relatively the left lung is clear. PLEURA: There is minimal posterior pleural thickening. No effusion seen. MEDIASTINUM: Thyroid lobes are symmetrical and normal. The great vessels are normal caliber. Central trachea and the bronchi are widely patent. No evidence of septal bowing or right heart strain. Heart size is borderline enlarged. CORONARY ARTERY CALCIFICATION: Mild coronary artery calcifications are present.. CHEST WALL/AXILLA: No axillary or internal mammary lymphadenopathy. OSSEOUS STRUCTURES: No aggressive lytic or sclerotic process seen. UPPER ABDOMEN: Visualized liver, spleen, pancreas and adrenal glands unremarkable. Noted 2 cm left renal cyst. No reflux of contrast into the hepatic veins to suggest elevated right heart pressures. CT/CT angio chest PE protocol IMPRESSION: No evidence of PE. No evidence of aortic aneurysm or dissection. Right lung pneumonia. VTE: negative
--- NOTE | ~2022-10-17 | XR_ITS ---
EXAMINATION: XR CHEST CLINICAL INFORMATION: Dyspnea. COMPARISON: 01/15/2020 TECHNIQUE: Frontal view of the chest was obtained. FINDINGS: The lungs are moderately expanded. Widespread airspace disease in the right hemithorax. The left hemithorax is clear. No significant pleural effusion. Cardiac silhouette is unchanged. XR/XR chest 1V IMPRESSION: Multifocal pneumonia involving the right lung. Follow-up until resolution is advised.
--- NOTE | 2022-10-17 09:05 | ED_ITS ---
HPI - General Adult General Chief complaint: General Medical Stated complaint: Dizzy, SOB Time Seen by Provider: 10/17/22 09:00 Source: patient, EMS and RN notes reviewed Mode of arrival: EMS Limitations: altered mental status History of Present Illness HPI narrative: Patient is a 57-year-old male with history of asthma, substance abuse, GERD, diabetes, anxiety and depression presenting to the emergency department with shortness of breath and abdominal pain. Reported history is limited due to patient's altered mental status. Patient reports using cocaine multiple times last night. Reports his fingerstick blood sugars have been up and down, states were high, then normal for the past few days, then high again this morning. Patient unable to provide additional information. MD complaint: AMS, abdominal pain Onset (ago): hour(s) Location: chest and abdomen Related Data Previous Rx's Medication Instructions Recorded sennosides 8.6 mg capsule (senna) 8.6 mg PO BEDTIME PRN constipation 01/15/20 #30 caps acetaminophen 325 mg capsule 325 mg PO QID PRN pain #28 caps 05/14/20 (Tylenol) cyclobenzaprine 10 mg tablet 10 mg PO TID PRN muscle spasm #20 05/11/21 tabs ibuprofen 800 mg tablet 800 mg PO TID PRN pain #30 tabs 05/11/21 fluticasone 500 mcg-salmeterol 50 1 ea inhalation BID #60 caps 06/23/21 mcg/dose blistr powdr for inhalation Allergies Allergy/AdvReac Type Severity Reaction Status Date / Time bee pollen [BEE STINGS] Allergy Severe THROAT Verified 08/02/21 01:42 SWELLING raspberry [RASPBERRY] Allergy Severe UNKNOWN Verified 08/02/21 01:42 tadalafil [From CIALIS] Allergy Severe ANAPHYLAXIS Verified 08/02/21 01:42 wool Allergy Intermediate RASH Verified 08/02/21 01:42 Review of Systems Review of Systems: As per HPI. Yes Unobtainable due to mental status PMFSH Past Medical History Medical History Anxiety Asthma Depression Diabetes GERD (gastroesophageal reflux disease) Moderate persistent asthma Substance abuse Social History Social History Substance Use Type: Crack/Cocaine and Marijuana Advance Directives: No Advance Directives Information Provided: No Physical Exam ED Vital Signs: Vital Signs - 24 hr 10/17/22 09:03 10/17/22 11:28 10/17/22 12:17 Temperature 98.5 F Pulse Rate 150 H 105 H 98 Respiratory Rate 18 20 16 Blood Pressure 161/80 H 113/68 110/65 Pulse Oximetry 90 L 95 90 L Oxygen Delivery Method Nasal Cannula Nasal Cannula Nasal Cannula Oxygen Flow Rate 3 4 10/17/22 12:45 10/17/22 14:34 10/17/22 14:46 Temperature Pulse Rate 92 95 Respiratory Rate 18 18 Blood Pressure 107/67 112/71 Pulse Oximetry 91 L 94 Oxygen Delivery Method Nasal Cannula Nasal Cannula Oxygen Flow Rate 4 3 BMI result Body Mass Index 28.6 Medications Administered Generic Name Dose Route Start Last Admin Trade Name Freq PRN Reason Stop Dose Admin Azithromycin 500 mg/ Sodium 250 mls @ 125 mls/hr 10/17/22 14:02 10/17/22 14:44 Chloride IV 10/17/22 16:01 125 mls/hr ONCE ONE Administration Discontinued Medications Generic Name Dose Route Start Last Admin Trade Name Freq PRN Reason Stop Dose Admin Sodium Chloride 1,000 mls @ 999 mls/hr 10/17/22 09:15 10/17/22 10:50 Ns IV 10/17/22 10:15 Infused .Q1H1M HAVEN Infusion Sodium Chloride 1,000 mls @ 999 mls/hr 10/17/22 11:15 10/17/22 12:16 Ns IV 10/17/22 12:15 Infused .Q1H1M HAVEN Infusion Ceftriaxone Sodium 1 gm/ 50 mls @ 100 mls/hr 10/17/22 11:17 10/17/22 12:16 Sodium Chloride IV 10/17/22 11:46 Infused ONCE ONE Infusion Insulin Human Lispro 5 unit 10/17/22 11:22 10/17/22 11:26 Insulin Lispro 100 Unit/Ml 3 Ml Vial SUBCUT 10/17/22 11:23 5 unit ONCE ONE Administration Iohexol 100 ml 10/17/22 13:44 10/17/22 13:44 Iohexol 350 Mg/Ml 100 Ml Infus..Btl IV 10/17/22 13:45 65 ml ONCE ONE Administration Lorazepam 2 mg 10/17/22 09:35 10/17/22 09:45 Lorazepam 2 Mg/Ml Vial IVPUSH 10/17/22 09:36 2 mg ONCE ONE Administration Medical Decision Making Medical Decision Making [facility] Narrative: 09:45 Patient is a 57-year-old male with history of asthma, substance abuse, GERD, diabetes, anxiety and depression presenting to the emergency department with shortness of breath and abdominal pain. On exam patient is anxious/agitated, awake, A+Ox2, tachycardic, hypoxic, afebrile, LS diminished, abdomen soft, nontender. Given reported symptoms and physical exam findings, differential includes ACS, pneumonia, PE, hyperglcemia. Low suspicion for sepsis at this time. 11:22 Labs notable for elevated D-dimer, glucose of 453, no anion gap, so unlikely DKA, troponin 5.1, will obtain delta, no leukocytosis, lactic WNL, PT/INR WNL. X-ray chest notable for multifocal pneumonia of right lung. My interpretation is in agreement with the radiologist's interpretation. Will administer 2nd 1L bolus of NS, ceftriaxone, 5 units insulin, and CTA chest ordered. 15:19 CTA chest negative for PE. Delta trop elevated, likely demand ischemia r/t cocaine use. HEART score of 4. Cobb Text to Mary Anne Lee NP for admission. All results discussed with patient, he is agreeable to admission. Differential Diagnosis Differential Diagnoses: The differential diagnosis associated with the presentation includes pneumonia, PE, ACS, hyperglycemia Admission/Observation Consideration of admission/observation: Escalation of care including admission/observation considered Considered on arrival given patient tachycardic, altered Consult Healthcare Provider Management of the patient was discussed with: Hospitalist (Mary Anne Lee NP) Lab Data [facility] Lab Attestation statement: I reviewed the patient's lab results. As per MDM. 10/17/22 09:40 10/17/22 09:40 Labs: Lab Results 10/17/22 10/17/22 10/17/22 Range/Units 09:17 09:39 09:40 WBC 6.1 (4.8-10.8) X10*3/uL RBC 5.26 (4.60-5.80) X10*6/uL Hgb 14.7 (14.0-18.0) g/dl Hct 43.5 (42.0-52.0) % MCV 82.7 (80.0-98.0) fL MCH 27.9 (27.0-33.0) pg MCHC 33.8 (31.0-36.0) g/dl RDW 11.9 (11.0-16.0) % Plt Count 255 (160-400) X10*3/uL MPV 11.7 (9.4-12.4) fL Immature Gran % (Auto) 0.2 (0.0-0.4) % Neut % (Auto) 87.8 H (45-73) % Lymph % (Auto) 9.4 L (20-40) % Grundy % (Auto) 2.0 (2-11) % Eos % (Auto) 0.3 (0-4) % Baso % (Auto) 0.3 (0-2) % Lymph # (Auto) 0.6 L (1.2-4.9) X10*3/uL Grundy # (Auto) 0.1 (0.1-1.2) X10*3/uL Eos # (Auto) 0.0 (0.0-0.4) X10*3/uL Baso # (Auto) 0.0 (0.0-0.2) X10*3/uL Abs Immat Gran (auto) 0.01 (0.00-0.03) X10*3/uL Absolute Neuts (auto) 5.3 (2.0-8.3) x10*3/uL Absolute Nucleated RBC 0.000 (0.0-0.012) X10*3/uL Nucleated RBC % (auto) 0.0 (0.0-0.2) /100WBC PT (10.0-13.1) SEC INR (0.9-1.1) D-Dimer High Sensitivty NG/ML Sodium (135-145) mmol/L Potassium (3.3-5.1) mmol/L Chloride (96-108) mmol/L Carbon Dioxide (22-29) mmol/L Anion Gap (12-20) BUN (9-16) mg/dL Creatinine (0.5-1.4) mg/dL Estim Creat Clear Calc Estimated GFR POC Glucose 444 H* (60-115) mg/dL Random Glucose (60-115) mg/dL Lactic Acid 1.8 (0.5-2.0) mmol/L Calcium (8.4-10.2) mg/dL Total Bilirubin (0.0-1.0) mg/dL AST (5-37) U/L ALT (0-40) U/L Alkaline Phosphatase (39-117) U/L Troponin I High Sens (<3.5-35.0) ng/L Total Protein (6.5-8.0) g/dL Albumin (3.5-5.0) g/dL Lipase (8-78) U/L Urine Color Urine Appearance Urine pH (5.0-9.0) Ur Specific Henning (1.005-1.025) Urine Protein (Neg-Trace) mg/dL Urine Glucose (UA) (Negative) mg/dL Urine Ketones (Negative) mg/dL Urine Blood (Negative) Urine Nitrite (Negative) Ur Leukocyte Esterase (Negative) Urine RBC (0-2) /HPF Urine WBC (0-5) /HPF Ur Squamous Epith Cells (0-2) /HPF Urine Bacteria (None Seen) Hyaline Casts (0-2) /LPF Urine Opiates Screen (Not Detect) Urine Fentanyl Screen (Not Detect) Ur Barbiturates Screen (Not Detect) Ur Phencyclidine Scrn (Not Detect) Ur Amphetamines Screen (Not Detect) U Benzodiazepines Scrn (Not Detect) Urine Cocaine Screen (Not Detect) U Marijuana (THC) Screen (Not Detect) 10/17/22 10/17/22 10/17/22 Range/Units 09:40 09:40 09:40 WBC (4.8-10.8) X10*3/uL RBC (4.60-5.80) X10*6/uL Hgb (14.0-18.0) g/dl Hct (42.0-52.0) % MCV (80.0-98.0) fL MCH (27.0-33.0) pg MCHC (31.0-36.0) g/dl RDW (11.0-16.0) % Plt Count (160-400) X10*3/uL MPV (9.4-12.4) fL Immature Gran % (Auto) (0.0-0.4) % Neut % (Auto) (45-73) % Lymph % (Auto) (20-40) % Grundy % (Auto) (2-11) % Eos % (Auto) (0-4) % Baso % (Auto) (0-2) % Lymph # (Auto) (1.2-4.9) X10*3/uL Grundy # (Auto) (0.1-1.2) X10*3/uL Eos # (Auto) (0.0-0.4) X10*3/uL Baso # (Auto) (0.0-0.2) X10*3/uL Abs Immat Gran (auto) (0.00-0.03) X10*3/uL Absolute Neuts (auto) (2.0-8.3) x10*3/uL Absolute Nucleated RBC (0.0-0.012) X10*3/uL Nucleated RBC % (auto) (0.0-0.2) /100WBC PT 11.5 (10.0-13.1) SEC INR 1.0 (0.9-1.1) D-Dimer High Sensitivty 400 NG/ML Sodium 136 (135-145) mmol/L Potassium 3.9 D (3.3-5.1) mmol/L Chloride 99 (96-108) mmol/L Carbon Dioxide 24 (22-29) mmol/L Anion Gap 17 (12-20) BUN 15 (9-16) mg/dL Creatinine 1.31 (0.5-1.4) mg/dL Estim Creat Clear Calc 73.7 Estimated GFR 56 POC Glucose (60-115) mg/dL Random Glucose 453 H* (60-115) mg/dL Lactic Acid (0.5-2.0) mmol/L Calcium 9.6 (8.4-10.2) mg/dL Total Bilirubin 0.7 (0.0-1.0) mg/dL AST 23 (5-37) U/L ALT 29 (0-40) U/L Alkaline Phosphatase 67 (39-117) U/L Troponin I High Sens 5.1 (<3.5-35.0) ng/L Total Protein 7.0 (6.5-8.0) g/dL Albumin 3.8 (3.5-5.0) g/dL Lipase 15 (8-78) U/L Urine Color Urine Appearance Urine pH (5.0-9.0) Ur Specific Henning (1.005-1.025) Urine Protein (Neg-Trace) mg/dL Urine Glucose (UA) (Negative) mg/dL Urine Ketones (Negative) mg/dL Urine Blood (Negative) Urine Nitrite (Negative) Ur Leukocyte Esterase (Negative) Urine RBC (0-2) /HPF Urine WBC (0-5) /HPF Ur Squamous Epith Cells (0-2) /HPF Urine Bacteria (None Seen) Hyaline Casts (0-2) /LPF Urine Opiates Screen (Not Detect) Urine Fentanyl Screen (Not Detect) Ur Barbiturates Screen (Not Detect) Ur Phencyclidine Scrn (Not Detect) Ur Amphetamines Screen (Not Detect) U Benzodiazepines Scrn (Not Detect) Urine Cocaine Screen (Not Detect) U Marijuana (THC) Screen (Not Detect) 10/17/22 10/17/22 10/17/22 Range/Units 14:14 14:16 14:23 WBC (4.8-10.8) X10*3/uL RBC (4.60-5.80) X10*6/uL Hgb (14.0-18.0) g/dl Hct (42.0-52.0) % MCV (80.0-98.0) fL MCH (27.0-33.0) pg MCHC (31.0-36.0) g/dl RDW (11.0-16.0) % Plt Count (160-400) X10*3/uL MPV (9.4-12.4) fL Immature Gran % (Auto) (0.0-0.4) % Neut % (Auto) (45-73) % Lymph % (Auto) (20-40) % Grundy % (Auto) (2-11) % Eos % (Auto) (0-4) % Baso % (Auto) (0-2) % Lymph # (Auto) (1.2-4.9) X10*3/uL Grundy # (Auto) (0.1-1.2) X10*3/uL Eos # (Auto) (0.0-0.4) X10*3/uL Baso # (Auto) (0.0-0.2) X10*3/uL Abs Immat Gran (auto) (0.00-0.03) X10*3/uL Absolute Neuts (auto) (2.0-8.3) x10*3/uL Absolute Nucleated RBC (0.0-0.012) X10*3/uL Nucleated RBC % (auto) (0.0-0.2) /100WBC PT (10.0-13.1) SEC INR (0.9-1.1) D-Dimer High Sensitivty NG/ML Sodium (135-145) mmol/L Potassium (3.3-5.1) mmol/L Chloride (96-108) mmol/L Carbon Dioxide (22-29) mmol/L Anion Gap (12-20) BUN (9-16) mg/dL Creatinine (0.5-1.4) mg/dL Estim Creat Clear Calc Estimated GFR POC Glucose 220 H (60-115) mg/dL Random Glucose (60-115) mg/dL Lactic Acid (0.5-2.0) mmol/L Calcium (8.4-10.2) mg/dL Total Bilirubin (0.0-1.0) mg/dL AST (5-37) U/L ALT (0-40) U/L Alkaline Phosphatase (39-117) U/L Troponin I High Sens 20.2 D (<3.5-35.0) ng/L Total Protein (6.5-8.0) g/dL Albumin (3.5-5.0) g/dL Lipase (8-78) U/L Urine Color Yellow Urine Appearance Clear Urine pH 5.5 (5.0-9.0) Ur Specific Henning >= 1.030 H (1.005-1.025) Urine Protein Negative (Neg-Trace) mg/dL Urine Glucose (UA) >=1000 H (Negative) mg/dL Urine Ketones Negative (Negative) mg/dL Urine Blood Negative (Negative) Urine Nitrite Negative (Negative) Ur Leukocyte Esterase Negative (Negative) Urine RBC 0-2 (0-2) /HPF Urine WBC 0-5 (0-5) /HPF Ur Squamous Epith Cells 0-2 (0-2) /HPF Urine Bacteria None Seen (None Seen) Hyaline Casts 0-2 (0-2) /LPF Urine Opiates Screen (Not Detect) Urine Fentanyl Screen (Not Detect) Ur Barbiturates Screen (Not Detect) Ur Phencyclidine Scrn (Not Detect) Ur Amphetamines Screen (Not Detect) U Benzodiazepines Scrn (Not Detect) Urine Cocaine Screen (Not Detect) U Marijuana (THC) Screen (Not Detect) 10/17/22 Range/Units 14:23 WBC (4.8-10.8) X10*3/uL RBC (4.60-5.80) X10*6/uL Hgb (14.0-18.0) g/dl Hct (42.0-52.0) % MCV (80.0-98.0) fL MCH (27.0-33.0) pg MCHC (31.0-36.0) g/dl RDW (11.0-16.0) % Plt Count (160-400) X10*3/uL MPV (9.4-12.4) fL Immature Gran % (Auto) (0.0-0.4) % Neut % (Auto) (45-73) % Lymph % (Auto) (20-40) % Grundy % (Auto) (2-11) % Eos % (Auto) (0-4) % Baso % (Auto) (0-2) % Lymph # (Auto) (1.2-4.9) X10*3/uL Grundy # (Auto) (0.1-1.2) X10*3/uL Eos # (Auto) (0.0-0.4) X10*3/uL Baso # (Auto) (0.0-0.2) X10*3/uL Abs Immat Gran (auto) (0.00-0.03) X10*3/uL Absolute Neuts (auto) (2.0-8.3) x10*3/uL Absolute Nucleated RBC (0.0-0.012) X10*3/uL Nucleated RBC % (auto) (0.0-0.2) /100WBC PT (10.0-13.1) SEC INR (0.9-1.1) D-Dimer High Sensitivty NG/ML Sodium (135-145) mmol/L Potassium (3.3-5.1) mmol/L Chloride (96-108) mmol/L Carbon Dioxide (22-29) mmol/L Anion Gap (12-20) BUN (9-16) mg/dL Creatinine (0.5-1.4) mg/dL Estim Creat Clear Calc Estimated GFR POC Glucose (60-115) mg/dL Random Glucose (60-115) mg/dL Lactic Acid (0.5-2.0) mmol/L Calcium (8.4-10.2) mg/dL Total Bilirubin (0.0-1.0) mg/dL AST (5-37) U/L ALT (0-40) U/L Alkaline Phosphatase (39-117) U/L Troponin I High Sens (<3.5-35.0) ng/L Total Protein (6.5-8.0) g/dL Albumin (3.5-5.0) g/dL Lipase (8-78) U/L Urine Color Urine Appearance Urine pH (5.0-9.0) Ur Specific Henning (1.005-1.025) Urine Protein (Neg-Trace) mg/dL Urine Glucose (UA) (Negative) mg/dL Urine Ketones (Negative) mg/dL Urine Blood (Negative) Urine Nitrite (Negative) Ur Leukocyte Esterase (Negative) Urine RBC (0-2) /HPF Urine WBC (0-5) /HPF Ur Squamous Epith Cells (0-2) /HPF Urine Bacteria (None Seen) Hyaline Casts (0-2) /LPF Urine Opiates Screen Not Detected (Not Detect) Urine Fentanyl Screen Not Detected (Not Detect) Ur Barbiturates Screen Not Detected (Not Detect) Ur Phencyclidine Scrn Not Detected (Not Detect) Ur Amphetamines Screen Not Detected (Not Detect) U Benzodiazepines Scrn Not Detected (Not Detect) Urine Cocaine Screen POSITIVE H (Not Detect) U Marijuana (THC) Screen POSITIVE H (Not Detect) Independent Interpretation I performed an independent interpretation of an: EKG, Plain X-Ray and CT Scan Interpretation: EKG: sinus tachycardia, rate 140bpm, normal CO interval X-ray: Right lung multifocal pneumonia CT scan: no PE Radiology Impression Discussion of test interpretation with radiology: I have reviewed the radiologist's reading. Radiologist Impression: XR/XR chest 1V IMPRESSION: Multifocal pneumonia involving the right lung. Follow-up until resolution is advised. CT/CT angio chest PE protocol IMPRESSION: No evidence of PE. No evidence of aortic aneurysm or dissection. ? Right lung pneumonia. ? VTE: negative Independent Historian Clinical information obtained from an independent historian. History obtained from or confirmed by: EMS External Record Review External record reviewed: Inpatient record, Office record and Outpatient record Prescription Management I considered prescription management with: Antibiotic Chronic Conditions Patient?s care impacted by: Diabetes and Other (asthma) Scores Heart Score History: -0- slightly suspicious ECG: -1- non specific repolarization disturbance Age: -1- >45 - <65 Risk factory: -1- 1 or 2 risk factors Troponin: -1- >1 - <3x normal limit Score: 4 Risk: 16.6% Discharge Plan Discharge Clinical Impression: Multifocal pneumonia Patient Disposition: Admitted As Inpatient
--- NOTE | 2022-10-17 09:05 | ECG_ITS ---
Test Reason : tachy Blood Pressure : / mmHG Vent. Rate : 140 BPM Atrial Rate : 140 BPM P-R Int : 176 ms QRS Dur : 102 ms QT Int : 286 ms P-R-T Axes : 041 009 119 degrees QTc Int : 436 ms Sinus tachycardia Possible Left atrial enlargement Nonspecific ST-T changes Abnormal ECG When compared with ECG of 02-AUG-2021 09:14, Vent. rate has increased BY 50 BPM Referred By: Lo Ignacio Electronically Signed By:Vini Gil
--- OUTSIDE RECORDS SUMMARY | 2022-10-17 09:13 | XMS_ITS | Continuity of Care Document ---
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 Refills 0, Maintenance, E11.9: Fortesting glucose levels: [facility] [id number], 05/06/19 12:04:00 EST, Compound, 180.34, cm, 03/06/19 14:34:00 EST, Height Start Date: 05/06/19 Status: Ordered 14 day lenny sensor 14 day lenny sensor, See Instructions, # 2 each, Refills 11, Tot. Refills 11, Maintenance, E 11.9: for testing glucose lev els. [facility] [id number], 05/06/19 12:05:00 EST, Compound, 180.34, cm, 03/06/19 14:34:00 EST, Height Start Date: 05/06/19 Status: Ordered aspirin 81 mg oral tablet 1 tablet = 81 mg, By Mouth, Daily, # 90 tablet, 0 Refills, Maintenance, Tablet Start Date: 07/23/12 Status: Ordered Freestyle Lenny 14 day reader Freestyle Lenny 14 day reader, See Instructions, # 1 each, Refills 0, Tot. 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 Refills 12, Maintenance, Wear on the back of the upper arm for 14 days. Use to check BG 5 times daily by swiping reader over sensor., 05/03/19 13:38:00 EST, DxE11.65 on insuli... Start Date: 05/03/19 Status: Ordered Freestyle Lite Lancets See Instructions, # 150 each, Refills 11, Tot. Refills 11, Maintenance, used to check sugars 4x a day. e 11.9, 03/06/19 18:04:07 EST, Compound, 180.34, cm, 03/06/19 14:34:41 EST, Height Start Date: 03/06/19 Status: Ordered Freestyle Lite Monitor See Instructions, # 1 each, Refills 0, Tot. Refills 0, Maintenance, USED TO CHECK SUGARS. e 11.9, 03/06/19 18:03:58 EST, Compound, 180.34, cm, 03/06/19 14:34:41 EST, Height Start Date: 03/06/19 Status: Ordered Freestyle Lite Test Strips See Instructions, # 150 each, Refills 11, Tot. Refills 11, Maintenance, used to check sugars 4x a day. e 11.9, 03/06/19 18:03:55 EST, Compound, 180.34, cm, 03/06/19 14:34:41 EST, Height Start Date: 03/06/19 Status: Ordered Freestyle Enoch test strips Freestyle [place]noch test strips, See Instructions, # 120 each, Refills 11, Tot. 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 E 11.9, # 30 mL, 11 Refills, Maintenance, 09/18/19 15:22:00 EDT, [facility], 180.34, cm, 03/06/19 14:34:00 EST, Height Start Date: 09/18/19 Status: Ordered loratadine 10 mg oral tablet 1 tablet = 10 mg, By Mouth, Daily, 0 Refills, Maintenance Start Date: 07/23/12 Status: Ordered enoch prescision test strips enoch prescision test strips, See Instructions, # 150 each, Refills 11, Tot. Refills 11, Maintenance,used to check sugar 4x a day. E 11.9, 05/06/19 12:05:00 EST, Compound, 180.34, cm, 03/06/19 14:34:00 EST, Height Start Date: 05/06/19 Status: Ordered NovoLOG FlexPen 100 units/mL injectable solution See Instructions, take 40units 3 times a day before meals per sliding scale. E 11. 9 total daily dose is 120 unit, # 45 mL, 6 Refills, Maintenance, 01/14/20 10:51:00 EDT, [facility], 180.34, cm, 03/06/19 14:34:00 EST, Height Start Date: 01/14/20 Status: Ordered omeprazole 20 mg oral enteric coated capsule 1 capsule = 20 mg, By Mouth, Daily, # 90 capsule, 0 Refills, Maintenance, EC Capsule Start Date: 07/23/12 Status: Ordered Pen [place], 31 G x 5 mm BD Ultra Fine III See Instructions, # 150 each, Refills 11, Tot. Refills 11, Maintenance, take insulin 4x a day. E 11.9, 03/06/19 18:03:19 EST, Compound, 180.34, cm, 03/06/19 14:34:41 EST, Height Start Date: 03/06/19 Status: Ordered Seroquel 100 mg oral tablet 1 tablet = 100 mg, By Mouth, Daily at bedtime, 0 Refills, Maintenance Start Date: 07/23/12 Status: Ordered simvastatin 40 mg oral tablet 1 tablet = 40 mg, By Mouth, Daily at bedtime, # 90 tablet, 0 Refills, Maintenance, Tablet Start Date: 07/23/12 Status: Ordered trazodone 100 mg oral tablet 1 tablet = 100 mg, By Mouth, Daily at bedtime, 0 Refills, Maintenance Start Date: 07/23/12 Status: Ordered Vicodin 5/500 Tablet 1 tablet, By Mouth, Every 6 hours, 0 Refills, Maintenance Start Date: 07/23/12 Status: Ordered Wellbutrin SR 150 mg oral tablet, extended release 1 tablet = 150 mg, By Mouth, Daily at bedtime, 0 Refills, Maintenance Start Date: 07/23/12 Status: Ordered Social History Social History Type Response Smoking Status Never (less than 100 in lifetime) entered on: 12/31/18 Sex
--- OUTSIDE RECORDS SUMMARY | 2022-10-17 09:13 | XMS_ITS | Patient Health Record ---
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 Name Role Phone Ranjit Anderson Unavailable Unavailable ALLERGIES Allergen (clinical drug ingredient) Drug/Non Drug Allergy documented on EMR Reaction Allergy Type Onset Date Status Seasonal Unknown Non Drug Allergy Act marc ENCOUNTERS from 1965 to 2022-10-17 Encounter Location Date Provider Diagnosis [facility] [address] [place] [address] Apr, Ranjit Anderson SOCIAL HISTORY Sex Assigned At : Social History Observation Description Sex Assigned At Unknown REASON FOR REFERRAL No Information VITAL SIGNS from 1965 to 2022-10-17 Blood pressure systolic 132 Apr, Blood pressure diastolic 73 Apr, REASON FOR VISIT No Information MEDICAL (GENERAL) HISTORY Type Description Date Medical History Smoker Medical History Asthma Medical History Diabetes Medical History HBP Medical History High Cholesterol Hospitalization History History of 2 Heart Attac ks not recently MENTAL STATUS No Information ASSESSMENTS Encounter Date Diagnosis Assessment Notes Treatment Notes Treatment Clinical Notes Apr, Other Informed con sent and TIME OUT form signed before starting treatment. DX: nonrestorable #32. Reviewed MDHx. Topical 20% Benzocaine placed. 2 x carpule Septocaine HCl 4% 1:100k epinephrine; R-EARLENE and R-LB; Periosteal elevator. Small observation flap elevated. Surgical extraction, surgical high-speed handpiece was used to section tooth and remove bone. Tooth #32 delivered in pieces Chlorhexidine rinse; CollaPlug placed in extraction socket. [address], 3-0 chromic gut. Secondary closure. Gauze pack hemostasis. Patient instructed to leave the gauze in your mouth for 15 minutes. Bite on it firmly but do not chew it. Patient tolerated procedure well. VERBAL AND WRITTEN POST-OP INSTRUCTIONS GIVEN. The patient was informed that immediately after the extraction their tongue/lips may be numb. This is the time to stay quiet, keep their blood pressure down by limiting physical exertions, and try not to disturb the forming clot(s). Do not eat food until your lips/tongue are un-numb or you can cause severe trauma by chewing the lips and tongue. Do not drink carbonated beverages such as soda or beer as the may fizz remove the forming clot(s). Alcoholic beverages are to be avoided because they can dissolve the clot and can cause your pain medication to be much stronger than intended. Generally, you can eat anything you want to eat after an extraction. Cold foods are better than hot because hot will increase the blood circulation in the mouth and may cause bleeding. Hard foods may be difficult to chew. Avoid rinsing your mouth for 24 hours and DO NOT use mouthwashes or peroxides. After the first day, gentle salt water rinses are recommended to remove debris from extraction site(s). Patient understands to call the office if they have any post-operative complications or need to ask a question about how to take care of the extraction sites. If prescribed an antibiotic, patient knows to take them until they are completely gone. Doing otherwise may cause recurrent infections and/or cause antibiotic resistant bacteria to populate your mouth. Recommended OTC pain medication for pain management. Patient understood.//[facility] PLAN OF TREATMENT No Information Insurance Providers Payer Name Payer Address Payer Phone Insured Name Patient Relationship to Insured Coverage Start Date Coverage End Date Subscriber Number Group Number [facility] Program [address] Attn Claims [facility] [id number] Zi Berry Self - patient is the insured [id number]
--- OUTSIDE RECORDS SUMMARY | 2022-10-17 09:13 | XMS_ITS | Continuity of Care Document ---
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 Refills 0, Maintenance, E11.9: Fortesting glucose levels: [facility] [id number], 05/06/19 12:04:00 EST, Compound, 180.34, cm, 03/06/19 14:34:00 EST, Height Start Date: 05/06/19 Status: Ordered 14 day lenny sensor 14 day lenny sensor, See Instructions, # 2 each, Refills 11, Tot. Refills 11, Maintenance, E 11.9: for testing glucose lev els. [facility] [id number], 05/06/19 12:05:00 EST, Compound, 180.34, cm, 03/06/19 14:34:00 EST, Height Start Date: 05/06/19 Status: Ordered aspirin 81 mg oral tablet 1 tablet = 81 mg, By Mouth, Daily, # 90 tablet, 0 Refills, Maintenance, Tablet Start Date: 07/23/12 Status: Ordered Freestyle Lneny 14 day reader Freestyle Lenny 14 day [...] Height Start Date: 03/06/19 Status: Ordered Freestyle Mya test strips Freestyle Mya test strips, See Instructions, # 120 each, [...] mL, 11 Refills, Maintenance, 09/18/19 15:22:00 EDT, [facility], 180.34, cm, 03/06/19 14:34:00 EST, Height Start Date: 09/18/19 Status: Ordered loratadine 10 mg oral tablet 1 tablet = 10 mg, By Mouth, Daily, 0 Refills, Maintenance Start Date: 07/23/12 Status: Ordered mya prescision test strips mya prescision test strips, See Instructions, # 150 each, Refills 11, Tot. Refills 11, Maintenance,used to check sugar 4x a day. E 11.9, 05/06/19 12:05:00 EST, Compound, 180.34, cm, 03/06/19 14:34:00 EST, Height Start Date: 05/06/19 Status: Ordered NovoLOG FlexPen 100 units/mL injectable solution See Instructions, take 12-22 units 3 times a day before meals per sliding scale. E 11. 9 total daily dose is 66 unit, # 45 mL, 11 Refills, Maintenance, 09/18/19 15:21:00 EDT, [facility], 180.34, cm, 03/06/19 14:34:00 EST, Height Start Date: 09/18/19 Status: Ordered omeprazole 20 mg oral enteric coated capsule 1 capsule = 20 mg, By Mouth, Daily, # 90 capsule, 0 Refills, Maintenance, EC Capsule Start Date: 07/23/12 Status: Ordered Pen [place], 31 G x 5 mm BD Ultra [...]
--- OUTSIDE RECORDS SUMMARY | 2022-10-17 09:13 | XMS_ITS | Continuity of Care Document ---
Author Name Unknown Organization [facility] ter Address [address] [place] [address]- Care Team Providers Care Solutions Consultant Name Role Phone Jovani NOLASCO, Za Zaman Primary Care Physician Encounter [facility] Date(s): 07/18/19 - 07/25/[address] [address]- [facility] Attending Physician: Za Hahn NP, V Referring Physician: Deon NOLASCO, Amy Allergies, Adverse Reactions, Alerts Substance Reaction Severity Status Other Environmental Allergy 1 Active 1wool, raspberries, bee stings Medications 14 day lenny reader 14 day lenny reader, See Instructions, # 1 each, Refills 0, Tot. Refills 0, Maintenance, E11.9: Fortesting glucose levels: [facility] [id number], 05/06/19 12:04:00 EST, Compound, 180.34, cm, 03/06/19 14:34:00 EST, Height Start Date: 05/06/19 Status: Ordered 14 day lenny sensor 14 day lenny sensor, See Instructions, # 2 each, Refills 11, Tot. Refills 11, Maintenance, E 11.9: for testing glucose lev els. [facility] [id number], 05/06/19 12:05:00 EST, Compound, 180.34, cm, 03/06/19 [...] 100 units/mL subcutaneous solution See Instructions, lantus 36 units daily at bedtime. E 11.9, # 30 mL, 11 Refills, Maintenance, 07/03/19 10:11:00 EDT, [facility], 180.34, cm, 03/06/19 14:34:00 EST, Height Start Date: 07/03/19 Status: Ordered loratadine 10 mg oral tablet [...] 100 units/mL injectable solution See Instructions, take 8-18 units 3 times a day before meals per sliding scale. E 11. 9 total dailydose is 54 unit, # 30 mL, 11 Refills, Maintenance, 07/03/19 10:12:00 EDT, [facility], 180.34, cm, 03/06/19 14:34:00 EST, Height Start Date: 07/03/19 Status: Ordered omeprazole 20 mg oral enteric coated capsule 1 capsule = 20 mg, By Mouth, Daily, # 90 capsule, 0 Refills, Maintenance, EC Capsule Start Date: 07/23/12 Status: Ordered Pen [place], 31 G x 5 mm BD Ultra [...]
--- OUTSIDE RECORDS SUMMARY | 2022-10-17 09:13 | XMS_ITS | Continuity of Care Document ---
Author Name Unknown Organization [facility] Address [address] [place] [address]- Care Team Providers Care Manager Music Name Role Phone Jovani NOLASCO, Za Zaman Primary Care Physician [place] [facility] 03/28/19 - 07/26/19 [facility] [address] [place] [address] [facility] Attending Physician: Britta Laughlin MD Admitting Physician: Britta Laughlin MD Referring Physician: Za Hahn NP, V Allergies, Adverse Reactions, Alerts Substance Reaction Severity Status Other Environmental Allergy 1 Active 1wool, raspberries, bee stings Medications 14 day lenny reader 14 day lenny reader, See Instructions, # 1 each, Refills 0, Tot. Refills 0, Maintenance, E11.9: Fortesting glucose levels: [facility] [id number], 05/06/19 12:04:00 EST, Compound, 180.34, cm, 03/06/19 14:34:00 EST, Height Start Date: 05/06/19 Status: Ordered 14 day lenny sensor 14 day lenny sensor, See Instructions, # 2 each, Refills 11, Tot. Refills 11, Maintenance, E 11.9: for testing glucose lev els. [facility] [id number], 05/06/19 12:05:00 EST, Compound, 180.34, cm, 03/06/19 [...] mL, 11 Refills, Maintenance, 07/03/19 10:11:00 EDT, [facility], 180.34, cm, 03/06/19 14:34:00 EST, Height Start Date: 07/03/19 Status: Ordered loratadine 10 mg oral tablet 1 tablet = 10 mg, By Mouth, Daily, 0 Refills, Maintenance Start Date: 07/23/12 Status: Ordered enoch prescision test strips neoch prescision test strips, See Instructions, # 150 [...] mL, 11 Refills, Maintenance, 07/03/19 10:12:00 EDT, [facility], 180.34, cm, 03/06/19 14:34:00 EST, Height Start Date: 07/03/19 Status: Ordered omeprazole 20 mg oral enteric coated capsule 1 capsule = 20 mg, By Mouth, Daily, # 90 capsule, 0 Refills, Maintenance, EC Capsule Start Date: 07/23/12 Status: Ordered Pen [place], 31 G x 5 mm BD Ultra [...]
--- OUTSIDE RECORDS SUMMARY | 2022-10-17 09:14 | XMS_ITS | Continuity of Care Document ---
Author Name Unknown Organization [facility] ter Address [address] [place] [address]- Care Team Providers Care Adult Live In Caregiver Name Role Phone Jovani NOLASCO, Za Zaman Primary Care Physician [phone] Encounter [facility] [place] Date(s): 08/20/19 - 09/19/[address] [address]- [facility] Attending Physician: Admtr, Ar8 Admitting Physician: Admtr, Ar8 Referring Physician: Admtr, Ar8 Allergies, Adverse Reactions, Alerts Substance Reaction Severity Status Other Environmental Allergy 1 Active 1wool, raspberries, bee stings Medications 14 day lenny reader 14 day lenny reader, See Instructions, # 1 each, Refills 0, Tot. Refills 0, Maintenance, E11.9: Fortesting glucose levels: [facility] [id number], 05/06/19 12:04:00 EST, Compound, 180.34, cm, 03/06/19 14:34:00 EST, Height Start Date: 05/06/19 Status: Ordered 14 day lenny sensor 14 day lenny sensor, See Instructions, # 2 each, Refills 11, Tot. Refills 11, Maintenance, E 11.9: for testing glucose lev els. [facility] [id number], 05/06/19 12:05:00 EST, Compound, 180.34, cm, 03/06/19 [...] mL, 11 Refills, Maintenance, 09/18/19 15:22:00 EDT, [facility], 180.34, cm, 03/06/19 14:34:00 EST, [...] mL, 11 Refills, Maintenance, 09/18/19 15:21:00 EDT, [facility], 180.34, cm, 03/06/19 14:34:00 EST, Height Start Date: 09/18/19 Status: Ordered omeprazole 20 mg oral enteric coated capsule 1 capsule = 20 mg, By Mouth, Daily, # 90 capsule, 0 Refills, Maintenance, EC Capsule Start Date: 07/23/12 Status: Ordered Pen [place], 31 G x 5 mm BD Ultra [...]
--- OUTSIDE RECORDS SUMMARY | 2022-10-17 09:14 | XMS_ITS | Continuity of Care Document ---
Author Name Unknown Organization [facility] Address [address] [place] [address]- Care Team Providers Care Bottle Filler Name Role Phone Za Hahn NP, V Primary Care Physician [phone] [place] [facility]s): [place]/07[place] - 03/17/19 [facility] [address] [place] [address]- [facility] Attending Physician: Britta Laughlin MD Admitting Physician: Britta Laughlin MD Referring Physician: Za Hahn NP, V Allergies, Adverse Reactions, Alerts Substance Reaction Severity Status Other Environmental Allergy 1 Active 1wool, raspberries, bee stings Medications aspirin 81 mg oral tablet 1 tablet = 81 mg, By Mouth, Daily, # 90 tablet, 0 Refills, Maintenance, Tablet Start Date: 07/23/12 Status: Ordered Freestyle Lite Lancets See Instructions, # 150 each, Refills 11, Tot. Refills 11, Maintenance, used to check sugars 4x a day. e 11., 03/06/19 18:04:07 EST, Compound, 180.34, cm, 03/06/19 14:34:41 EST, Height Start Date: 03/06/19 Status: Ordered Freestyle Lite Monitor See Instructions, # 1 each, Refills 0, Tot. Refills 0, Maintenance, USED TO CHECK SUGARS. e 11., 03/06/19 18:03:58 EST, Compound, 180.34, cm, 03/06/19 14:34:41 EST, Height Start Date: 03/06/19 Status: Ordered Freestyle Lite Test Strips See Instructions, # 150 each, Refills 11, Tot. Refills 11, Maintenance, used to check sugars 4x a day. e 11., 03/06/19 18:03:55 EST, Compound, 180.34, cm, 03/06/19 14:34:41 EST, Height Start Date: 03/06/19 Status: Ordered gabapentin 300 mg oral capsule 1 capsule = 300 mg, By Mouth, Daily, 0 Refills, Maintenance Start Date: 07/23/12 Status: Ordered Lantus Inj = 54 units, Subcutaneous Injection, Daily at bedtime, 0 Refills, Maintenance, Injection Start Date: 07/23/12 Status: Ordered Lantus Solostar Pen 100 units/mL subcutaneous solution See Instructions, lantus 22 units daily at bedtime. E 11.9, # 30 mL, 4 Refills, Maintenance, 03/06/19 18:00:28 EST, 180.34, cm, 03/06/19 14:34:41 EST, Height Start Date: 03/06/19 Status: Ordered loratadine 10 mg oral tablet 1 tablet = 10 mg, By Mouth, Daily, 0 Refills, Maintenance Start Date: 07/23/12 Status: Ordered NovoLOG FlexPen 100 units/mL injectable solution See Instructions, take 6-16 units 3 times a day before meals per sliding scale. E 11. 9 total dailydose is 48 unit, # 30 mL, 4 Refills, Maintenance, 03/06/19 18:02:00 EST, 180.34, cm, 03/06/19 14:34:41 EST, Height Start Date: 03/06/19 Status: Ordered omeprazole 20 mg oral enteric coated capsule 1 capsule = 20 mg, By Mouth, Daily, # 90 capsule, 0 Refills, Maintenance, EC Capsule Start Date: 07/23/12 Status: Ordered Pen [place], 31 G x 5 mm BD Ultra [...]
--- OUTSIDE RECORDS SUMMARY | 2022-10-17 09:14 | XMS_ITS | Continuity of Care Document ---
Author Name Unknown Organization [facility] ter Address [address] [place] [address]- Care Team Providers Care Keno Writer / Runner Name Role Phone Jovani NOLASCO, Za Zaman Primary Care Physician Encounter [facility] [place] Date(s): 06/06/19 - 06/16/[address] [address]- [facility] Attending Physician: Admtr, Ar8 Admitting Physician: Admtr, Ar8 Referring Physician: Admtr, Ar8 Allergies, Adverse Reactions, Alerts Substance Reaction Severity Status Other Environmental Allergy 1 Active 1wool, raspberries, bee stings Medications 14 day lenny reader 14 day lenny reader, See Instructions, # 1 each, Refills 0, Tot. Refills 0, Maintenance, E11.9: Fortesting glucose levels: [facility] [id number], 05/06/19 12:04:00 EST, Compound, 180.34, cm, 03/06/19 14:34:00 EST, Height Start Date: 05/06/19 Status: Ordered 14 day lenny sensor 14 day lenny sensor, See Instructions, # 2 each, Refills 11, Tot. Refills 11, Maintenance, E 11.9: for testing glucose lev els. [facility] [id number], 05/06/19 12:05:00 EST, Compound, 180.34, cm, 03/06/19 [...] Capsule Start Date: 07/23/12 Status: Ordered Pen [place], 31 G x 5 mm BD Ultra [...]
--- OUTSIDE RECORDS SUMMARY | 2022-10-17 09:14 | XMS_ITS | Continuity of Care Document ---
Author Name Unknown Organization [facility] ter Address [address] [place] [address]- Care Team Providers Care Manager Of Software Name Role Phone Jovani NOLASCO, Za Zaman Primary Care Physician En[place] [facility] [place] Date(s): 08/20/19 - 09/19/[address] [address]- [facility] Attending Physician: Britta Laughlin MD Referring Physician: Za Hahn NP, V Allergies, Adverse Reactions, Alerts Substance Reaction Severity Status Other Environmental Allergy 1 Active 1wool, raspberries, bee stings Medications 14 day lenny reader 14 day lenny reader, See Instructions, # 1 each, Refills 0, Tot. Refills 0, Maintenance, E11.9: Fortesting glucose levels: [facility] [id number], 05/06/19 12:04:00 EST, Compound, 180.34, cm, 03/06/19 14:34:00 EST, Height Start Date: 05/06/19 Status: Ordered 14 day lenny sensor 14 day lenny sensor, See Instructions, # 2 each, Refills 11, Tot. Refills 11, Maintenance, E 11.9: for testing glucose lev els. [facility] [id number], 05/06/19 12:05:00 EST, Compound, 180.34, cm, 03/06/19 [...] mL, 11 Refills, Maintenance, 09/18/19 15:22:00 EDT, [facility], 180.34, cm, 03/06/19 14:34:00 EST, Height [...] mL, 11 Refills, Maintenance, 09/18/19 15:21:00 EDT, [facility], 180.34, cm, 03/06/19 14:34:00 EST, Height Start Date: 09/18/19 Status: Ordered omeprazole 20 mg oral enteric coated capsule 1 capsule = 20 mg, By Mouth, Daily, # 90 capsule, 0 Refills, Maintenance, EC Capsule Start Date: 07/23/12 Status: Ordered Pen [place], 31 G x 5 mm BD Ultra [...]
--- OUTSIDE RECORDS SUMMARY | 2022-10-17 09:14 | XMS_ITS | Continuity of Care Document ---
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 Refills 0, Maintenance, E11.9: Fortesting glucose levels: [facility] [id number], 05/06/19 12:04:00 EST, Compound, 180.34, cm, 03/06/19 14:34:00 EST, Height Start Date: 05/06/19 Status: Ordered 14 day lenny sensor 14 day lenny sensor, See Instructions, # 2 each, Refills 11, Tot. Refills 11, Maintenance, E 11.9: for testing glucose lev els. [facility] [id number], 05/06/19 12:05:00 EST, Compound, 180.34, cm, 03/06/19 [...] mL, 11 Refills, Maintenance, 07/03/19 10:11:00 EDT, [facility], 180.34, cm, 03/06/19 14:34:00 EST, [...] mL, 11 Refills, Maintenance, 07/03/19 10:12:00 EDT, [facility], 180.34, cm, 03/06/19 14:34:00 EST, Height Start Date: 07/03/19 Status: Ordered omeprazole 20 mg oral enteric coated capsule 1 capsule = 20 mg, By Mouth, Daily, # 90 capsule, 0 Refills, Maintenance, EC Capsule Start Date: 07/23/12 Status: Ordered Pen [place], 31 G x 5 mm BD Ultra [...]
--- OUTSIDE RECORDS SUMMARY | 2022-10-17 09:14 | XMS_ITS | Continuity of Care Document ---
Author Name Unknown Organization 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 Refills 0, Maintenance, E11.9: Fortesting glucose levels: [facility] [id number], 05/06/19 12:04:00 EST, Compound, 180.34, cm, 03/06/19 14:34:00 EST, Height Start Date: 05/06/19 Status: Ordered 14 day lenny sensor 14 day lenny sensor, See Instructions, # 2 each, Refills 11, Tot. Refills 11, Maintenance, E 11.9: for testing glucose lev els. [facility] [id number], 05/06/19 12:05:00 EST, Compound, 180.34, cm, 03/06/19 [...] mL, 11 Refills, Maintenance, 07/03/19 10:11:00 EDT, [facility], 180.34, cm, 03/06/19 14:34:00 EST, [...] mL, 11 Refills, Maintenance, 07/03/19 10:12:00 EDT, [facility], 180.34, cm, 03/06/19 14:34:00 EST, Height Start Date: 07/03/19 Status: Ordered omeprazole 20 mg oral enteric coated capsule 1 capsule = 20 mg, By Mouth, Daily, # 90 capsule, 0 Refills, Maintenance, EC Capsule Start Date: 07/23/12 Status: Ordered Pen [place], 31 G x 5 mm BD Ultra [...]
--- OUTSIDE RECORDS SUMMARY | 2022-10-17 09:14 | XMS_ITS | Continuity of Care Document ---
Author Name Unknown Organization [facility] ter Address [address] [place] [address]- Care Team Providers Care Pipeline Operator Name Role Phone Za Hahn NP, V Primary Care Physician Encounter [facility] [place] Date(s): 05/02/19 - 06/28/[address] [address]- [facility] Attending Physician: Za Hahn NP, V Admitting Physician: Za Hahn NP, V Referring Physician: Amy Chavarria NP Allergies, Adverse Reactions, Alerts Substance Reaction Severity Status Other Environmental Allergy 1 Active 1wool, raspberries, bee stings Medications 14 day lenny reader 14 day lenny reader, See Instructions, # 1 each, Refills 0, Tot. Refills 0, Maintenance, E11.9: Fortesting glucose levels: [facility] [id number], 05/06/19 12:04:00 EST, Compound, 180.34, cm, 03/06/19 14:34:00 EST, Height Start Date: 05/06/19 Status: Ordered 14 day lenny sensor 14 day lenny sensor, See Instructions, # 2 each, Refills 11, Tot. Refills 11, Maintenance, E 11.9: for testing glucose lev els. [facility] [id number], 05/06/19 12:05:00 EST, Compound, 180.34, cm, 03/06/19 [...] Capsule Start Date: 07/23/12 Status: Ordered Pen [place], 31 G x 5 mm BD Ultra [...]
--- OUTSIDE RECORDS SUMMARY | 2022-10-17 09:14 | XMS_ITS | Continuity of Care Document ---
Author Name Unknown Organization [facility] Address [address] [place] [address]- Care Team Providers Care Postal Service Window Clerk Name Role Phone Za Hahn NP, V Primary Care Physician [phone] Encounter [facility] [place] Date(s): 04/08/19 - 08/01/19 [facility] [address] [place] [address]- [facility] Attending Physician: Britta Laughlin MD Admitting Physician: Britta Laughlin MD Referring Physician: Za Hahn NP, V Allergies, Adverse Reactions, Alerts Substance Reaction Severity Status Other Environmental Allergy 1 Active 1wool, raspberries, bee stings Medications 14 day lenny reader 14 day lenny reader, See Instructions, # 1 each, Refills 0, Tot. Refills 0, Maintenance, E11.9: Fortesting glucose levels: [facility] [id number], 05/06/19 12:04:00 EST, Compound, 180.34, cm, 03/06/19 14:34:00 EST, Height Start Date: 05/06/19 Status: Ordered 14 day lenny sensor 14 day lenny sensor, See Instructions, # 2 each, Refills 11, Tot. Refills 11, Maintenance, E 11.9: for testing glucose lev els. [facility] [id number], 05/06/19 12:05:00 EST, Compound, 180.34, cm, 03/06/19 [...] mL, 11 Refills, Maintenance, 07/03/19 10:11:00 EDT, [facility], 180.34, cm, 03/06/19 14:34:00 EST, Height [...] mL, 11 Refills, Maintenance, 07/03/19 10:12:00 EDT, [facility], 180.34, cm, 03/06/19 14:34:00 EST, Height Start Date: 07/03/19 Status: Ordered omeprazole 20 mg oral enteric coated capsule 1 capsule = 20 mg, By Mouth, Daily, # 90 capsule, 0 Refills, Maintenance, EC Capsule Start Date: 07/23/12 Status: Ordered Pen [place], 31 G x 5 mm BD Ultra [...]
--- OUTSIDE RECORDS SUMMARY | 2022-10-17 09:14 | XMS_ITS | Continuity of Care Document ---
Author Name Unknown Organization [facility] ter Address [address] [place] [address]- Care Team Providers Care Bull Rider Name Role Phone Jovani NOLASCO, Za Zaman Primary Care Physician [place] [facility] [place](s[place] 07/18/19 - 07/28/[address] [address] [facility] Attending Physician: Admtr, Ar8 Admitting Physician: Admtr, Ar8 Referring Physician: Admtr, Ar8 Allergies, Adverse Reactions, Alerts Substance Reaction Severity Status Other Environmental Allergy 1 Active 1wool, raspberries, bee stings Medications 14 day lenny reader 14 day lenny reader, See Instructions, # 1 each, Refills 0, Tot. Refills 0, Maintenance, E11.9: Fortesting glucose levels: [facility] [id number], 05/06/19 12:04:00 EST, Compound, 180.34, cm, 03/06/19 14:34:00 EST, Height Start Date: 05/06/19 Status: Ordered 14 day lenny sensor 14 day lenny sensor, See Instructions, # 2 each, Refills 11, Tot. Refills 11, Maintenance, E 11.9: for testing glucose lev els. [facility] [id number], 05/06/19 12:05:00 EST, Compound, 180.34, cm, 03/06/19 [...] mL, 11 Refills, Maintenance, 07/03/19 10:11:00 EDT, [facility], 180.34, cm, 03/06/19 14:34:00 [...] mL, 11 Refills, Maintenance, 07/03/19 10:12:00 EDT, [facility], 180.34, cm, 03/06/19 14:34:00 EST, Height Start Date: 07/03/19 Status: Ordered omeprazole 20 mg oral enteric coated capsule 1 capsule = 20 mg, By Mouth, Daily, # 90 capsule, 0 Refills, Maintenance, EC Capsule Start Date: 07/23/12 Status: Ordered Pen [place], 31 G x 5 mm BD Ultra [...]
--- OUTSIDE RECORDS SUMMARY | 2022-10-17 09:14 | XMS_ITS | Continuity of Care Document ---
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 Name Role Phone Jovani NOLASCO, Za Zaman Primary Care Physician [phone] Encounter [facility] [place] Date(s): 02/19/20 - 03/20/20 [facility] [address] [place] [address] Attending Physician: Admtr, Ar8 Admitting Physician: Admtr, Ar8 Referring Physician: Admtr, Ar8 Allergies, Adverse Reactions, Alerts Substance Reaction Severity Status Other Environmental Allergy 1 Active 1wool, raspberries, bee stings Medications 14 day lenny reader 14 day lenny reader, See Instructions, # 1 each, Refills 0, Tot. Refills 0, Maintenance, E11.9: Fortesting glucose levels: [facility] [id number], 05/06/19 12:04:00 EST, Compound, 180.34, cm, 03/06/19 14:34:00 EST, Height Start Date: 05/06/19 Status: Ordered 14 day lenny sensor 14 day lenny sensor, See Instructions, # 2 each, Refills 11, Tot. Refills 11, Maintenance, E 11.9: for testing glucose lev els. [facility] [id number], 05/06/19 12:05:00 EST, Compound, 180.34, cm, 03/06/19 [...] mL, 11 Refills, Maintenance, 09/18/19 15:22:00 EDT, [facility], 180.34, cm, 03/06/19 14:34:00 EST, [...] mL, 6 Refills, Maintenance, 01/14/20 10:51:00 EDT, [facility], 180.34, cm, 03/06/19 14:34:00 EST, Height Start Date: 01/14/20 Status: Ordered omeprazole 20 mg oral enteric coated capsule 1 capsule = 20 mg, By Mouth, Daily, # 90 capsule, 0 Refills, Maintenance, EC Capsule Start Date: 07/23/12 Status: Ordered Pen [place], 31 G x 5 mm BD Ultra [...]
[2022-10-17 09:33] LABS: Glucose, Whole Blood 444 mg/dL (60-115)
[2022-10-17] MEDS: 0.9 % Sodium Chloride 1,000 ML 999 ML IV ×2 (09:43→11:23)
[2022-10-17] MEDS: LORazepam 2 MG/ML VIAL IVPUSH (09:45)
[2022-10-17 09:50] LABS: MANUAL DIFF FLAG NO
[2022-10-17 09:52] LABS: Basophils Percent Auto 0.3 % (0-2); Eosinophils Percent Auto 0.3 % (0-4); Hematocrit 43.5 % (42.0-52.0); Hemoglobin 14.7 g/dl (14.0-18.0); Imm Gran Abs Auto 0.01 X10*3/uL (0.00-0.03); Imm Gran Pct Auto 0.2 % (0.0-0.4); Lymphocytes Absolute Auto 0.6 X10*3/uL (1.2-4.9); Lymphocytes Percent Auto 9.4 % (20-40); Mean Corpuscular HGB Conc 33.8 g/dl (31.0-36.0); Mean Corpuscular Hemoglobin 27.9 pg (27.0-33.0); Mean Corpuscular Volume 82.7 fL (80.0-98.0); Mean Platelet Volume 11.7 fL (9.4-12.4); Monocytes Absolute Auto 0.1 X10*3/uL (0.1-1.2); Neutrophils Absolute Auto 5.3 x10*3/uL (2.0-8.3); Neutrophils Percent Auto 87.8 % (45-73); Platelet Count 255 X10*3/uL (160-400); Red Blood Count 5.26 X10*6/uL (4.60-5.80); Red Cell Distribution Width 11.9 % (11.0-16.0); White Blood Count 6.1 X10*3/uL (4.8-10.8)
[2022-10-17 09:58] LABS: Prothrombin Time 11.5 SEC (10.0-13.1)
[2022-10-17 10:05] LABS: Lactic Acid 1.8 mmol/L (0.5-2.0)
[2022-10-17 10:11] LABS: Troponin-I High Sensitivity 5.1 ng/L (<3.5-35.0)
[2022-10-17 10:15] LABS: Alanine Aminotransferase 29 U/L (0-40); Albumin Level 3.8 g/dL (3.5-5.0); Alkaline Phosphatase 67 U/L (39-117); Anion Gap 17 (12-20); Aspartate Amino Transferase 23 U/L (5-37); Bilirubin Total 0.7 mg/dL (0.0-1.0); Blood Urea Nitrogen 15 mg/dL (9-16); Calcium 9.6 mg/dL (8.4-10.2); Carbon Dioxide 24 mmol/L (22-29); Chloride 99 mmol/L (96-108); Creatinine Clr Calc Pharmacy 73.7; Estimated Glomerular Filt Rate 56; Glucose Random 453 mg/dL (60-115); Lipase 15 U/L (8-78); Potassium 3.9 mmol/L (3.3-5.1); Sodium 136 mmol/L (135-145)
[2022-10-17 10:30] LABS: D Dimer High Sensitivity 400 NG/ML
[2022-10-17] MEDS: cefTRIAXone sodium 1 GM in 0.9 % Sodium Chloride 50 ML IV (11:23)
[2022-10-17] MEDS: Insulin Lispro 100 UNIT/ML 3 ML VIAL SUBCUT ×2 (11:26→22:58)
[2022-10-17] MEDS: iohexoL 350 MG/ML 100 ML INFUS..BTL IV (13:44)
[2022-10-17 14:29] LABS: Glucose, Whole Blood 220 mg/dL (60-115)
[2022-10-17 14:33] LABS: Appearance Urine Clear; Color Urine Yellow; Glucose Urine UA >=1000 mg/dL (Negative); Leukocyte Esterase Urine Negative (Negative); Nitrite Urine Negative (Negative); PH 5.5 (5.0-9.0); Specific Gravity - Urine >= 1.030 (1.005-1.025); UMIC TRIGGER UACC YES; Urine Blood Negative (Negative); Urine Ketones Negative (Negative); Urine Protein Negative (Neg-Trace)
[2022-10-17 14:40] LABS: Bacteria Urine None Seen (None Seen); Hyaline Casts Urine 0-2 /LPF (0-2); RBC Urine 0-2 /HPF (0-2); Squamous Epithelial Cell Urine 0-2 /HPF (0-2); WBC Urine 0-5 /HPF (0-5)
[2022-10-17 14:44] LABS: Amphetamine Screen Urine Not Detected (Not Detect); Barbiturates, Urine Not Detected (Not Detect); Benzodiazepines Screen Urine Not Detected (Not Detect); Cannabinoid Screen Urine POSITIVE (Not Detect); Cocaine Screen Urine POSITIVE (Not Detect); Fentanyl, urine Not Detected (Not Detect); Opiate Screen Urine Not Detected (Not Detect); Phencyclidine Screen Urine Not Detected (Not Detect)
[2022-10-17] MEDS: Azithromycin 500 MG in 0.9 % Sodium Chloride 250 ML 125 MG IV (14:44)
[2022-10-17 14:54] LABS: Troponin-I High Sensitivity 20.2 ng/L (<3.5-35.0)
--- NOTE | 2022-10-17 15:50 | P.HPHOSP_ITS ---
History of Present Illness Date of Service: 10/17/22 Chief Complaint: SOB 57-year-old man presents to the ER with complaints of worsening shortness breath. Patient reports over the last 2 days he has had a dry cough and shortness of breath. He has also been using cocaine and head use multiple times last night. His blood sugars have also been high especially over the last couple a days. Denied chest pain, nausea, vomiting, diarrhea, fever, recent illness, sick contacts. Chest x-ray in ER showed multifocal pneumonia in the right lung, no fever leukocytosis noted, normal lactic acid. No hypoxia noted but oxygen saturation was 90-91%. He was placed on 2-3 L of oxygen with improvement. He reported being hungry during the interview and denied any shortness of breath. He was going to been a dose of azithromycin, Rocephin, lorazepam, 2 L of IV fluids as well as insulin. He will be admitted for further management and treatment of acute community-acquired. Review of Systems Review of Systems: Denies any recent fever chills or decrease in appetite respiratory See HPI cardiovascular denies chest pain gastrointestinal denies any dysphagia abdominal pain nausea vomiting or diarrhea genitourinary denies any dysuria frequency or hematuria musculoskeletal denies any joint pain or swelling neuropsych denies any weakness or seizures all other systems reviewed are negative [facility] Medical History (Updated 10/17/22 @ 14:02 by Lo Ignacio NP) Anxiety Asthma Depression Diabetes GERD (gastroesophageal reflux disease) Moderate persistent asthma Substance abuse Family History (Updated 10/17/22 @ 18:23 by Mary Anne Lee NP) Father Diabetes mellitus Alcohol abuse Surgical History (Updated 10/17/22 @ 18:24 by Mary Anne Lee NP) No pertinent past surgical history Social History Substance Use Type: Crack/Cocaine and Marijuana Advance Directives: No Advance Directives Information Provided: No Meds Allergies Allergy/AdvReac Type Severity Reaction Status Date / Time bee pollen [BEE STINGS] Allergy Severe THROAT Verified 08/02/21 01:42 SWELLING raspberry [RASPBERRY] Allergy Severe UNKNOWN Verified 08/02/21 01:42 tadalafil [From CIALIS] Allergy Severe ANAPHYLAXIS Verified 08/02/21 01:42 wool Allergy Intermediate RASH Verified 08/02/21 01:42 Active Medications: Current Medications Azithromycin 500 mg/ Sodium (Chloride) 250 mls @ 125 mls/hr IV ONCE ONE Stop: 10/17/22 16:01 Last Admin: 10/17/22 14:44 Dose: 125 mls/hr Home Medications Medication Instructions Recorded Confirmed Last Taken Type acetaminophen 500 mg capsule 500 mg PO Q8H PRN Pain (Scale 10/17/22 10/17/22 Unknown History (Mapap (acetaminophen)) Score 1-3) albuterol sulfate 90 mcg/actuation 2 puff inhalation QID PRN 10/17/22 10/17/22 Unknown History aerosol inhaler (Ventolin HFA) Shortness Of Breath amitriptyline 50 mg tablet 50 mg PO BEDTIME 10/17/22 10/17/22 Unknown History aspirin 81 mg tablet,delayed 81 mg PO DAILY@1200 10/17/22 10/17/22 Unknown History release carvedilol 12.5 mg tablet 12.5 mg PO BID 10/17/22 10/17/22 Unknown History diphenhydramine HCl 25 mg tablet 25 mg PO BEDTIME 10/17/22 10/17/22 Unknown History (Agustina-Dryl) fenofibrate 160 mg tablet 160 mg PO DAILY 10/17/22 10/17/22 Unknown History fluticasone propionate 50 2 spray intranasal DAILY 10/17/22 10/17/22 Unknown History mcg/actuation nasal spray,suspension gabapentin 800 mg tablet 800 mg PO TID 10/17/22 10/17/22 Unknown History glipizide 10 mg tablet 10 mg PO BIDAC 10/17/22 10/17/22 Unknown History hydroxyzine pamoate 50 mg capsule 50 mg PO TID PRN Anxiety 10/17/22 10/17/22 Unknown History insulin aspart U-100 100 unit/mL See Protocol subcut TIDAC 10/17/22 10/17/22 Unknown History (3 mL) subcutaneous pen (Novolog FlexPen U-100 Insulin aspart) insulin glargine 100 unit/mL (3 45 unit subcut BEDTIME 10/17/22 10/17/22 Unknown History mL) subcutaneous pen (Lantus Solostar U-100 Insulin) ipratropium 0.5 mg-albuterol 3 mg 1 inhalation QID PRN Shortness Of 10/17/22 10/17/22 Unknown History (2.5 mg base)/3 mL nebulization Breath soln loratadine 10 mg tablet 10 mg PO DAILY@1200 10/17/22 10/17/22 Unknown History metformin 500 mg tablet 500 mg PO BIDWM 10/17/22 10/17/22 Unknown History omeprazole 20 mg capsule,delayed 20 mg PO BID@0630,1630 10/17/22 10/17/22 Unknown History release quetiapine 25 mg tablet 25 mg PO BID PRN anxiety 10/17/22 10/17/22 Unknown History quetiapine 300 mg tablet 300 mg PO BEDTIME 10/17/22 10/17/22 Unknown History sertraline 100 mg tablet 100 mg PO DAILY 10/17/22 10/17/22 Unknown History simvastatin 40 mg tablet 40 mg PO QPM 10/17/22 10/17/22 Unknown History Physical Exam Vital Signs and Narrative: Vital Signs: Last Vital Signs Temp 98.5 F 10/17/22 09:03 Pulse 95 10/17/22 14:34 Resp 18 10/17/22 14:34 BP 112/71 10/17/22 14:34 Pulse Ox 94 10/17/22 14:46 O2 Del Method Nasal Cannula 10/17/22 14:46 O2 Flow Rate 3 10/17/22 14:46 Oxygen Flow Rate 4 10/17/22 09:03 BMI result Body Mass Index 28.6 Appearing in no acute distress head is normocephalic atraumatic eyes pupils are PERRLA sclera is anicteric mouth throat mucous membranes are intact and moist neck is supple no lymphadenopathy, no JVD noted lung sounds are clear to auscultation heart regular rate rhythm, clear S1, S2 positive bowel sounds, abdomen is soft, nontender neuro patient is alert x3, no focal deficits Results Labs 10/17/22 09:40 10/17/22 09:40 Labs: Laboratory Results - last 24 hr 10/17/22 10/17/22 10/17/22 09:17 09:39 09:40 MCV 82.7 MCH 27.9 MCHC 33.8 RDW 11.9 Plt Count 255 MPV 11.7 Immature Gran % (Auto) 0.2 Neut % (Auto) 87.8 H Lymph % (Auto) 9.4 L [place] % (Auto) 2.0 Eos % (Auto) 0.3 Baso % (Auto) 0.3 Lymph # (Auto) 0.6 L [place] # (Auto) 0.1 Eos # (Auto) 0.0 Baso # (Auto) 0.0 Abs Immat Gran (auto) 0.01 Absolute Neuts (auto) 5.3 Absolute Nucleated RBC 0.000 Nucleated RBC % (auto) 0.0 PT INR D-Dimer High Sensitivty Anion Gap Estim Creat Clear Calc Estimated GFR POC Glucose 444 H* Random Glucose Lactic Acid 1.8 Calcium Total Bilirubin AST ALT Alkaline Phosphatase Troponin I High Sens Total Protein Albumin Lipase Urine Color Urine Appearance Urine pH Ur Specific [place] Urine Protein Urine Glucose (UA) Urine Ketones Urine Blood Urine Nitrite Ur Leukocyte Esterase Urine RBC Urine WBC Ur Squamous Epith Cells Urine Bacteria Hyaline Casts Urine Opiates Screen Urine Fentanyl Screen Ur Barbiturates Screen Ur Phencyclidine Scrn Ur Amphetamines Screen U Benzodiazepines Scrn Urine Cocaine Screen U Marijuana (THC) Screen 10/17/22 10/17/22 10/17/22 09:40 09:40 09:40 MCV MCH MCHC RDW Plt Count MPV Immature Gran % (Auto) Neut % (Auto) Lymph % (Auto) [place] % (Auto) Eos % (Auto) Baso % (Auto) Lymph # (Auto) [place] # (Auto) Eos # (Auto) Baso # (Auto) Abs Immat Gran (auto) Absolute Neuts (auto) Absolute Nucleated RBC Nucleated RBC % (auto) PT 11.5 INR 1.0 D-Dimer High Sensitivty 400 Anion Gap 17 Estim Creat Clear Calc 73.7 Estimated GFR 56 POC Glucose Random Glucose 453 H* Lactic Acid Calcium 9.6 Total Bilirubin 0.7 AST 23 ALT 29 Alkaline Phosphatase 67 Troponin I High Sens 5.1 Total Protein 7.0 Albumin 3.8 Lipase 15 Urine Color Urine Appearance Urine pH Ur Specific [place] Urine Protein Urine Glucose (UA) Urine Ketones Urine Blood Urine Nitrite Ur Leukocyte Esterase Urine RBC Urine WBC Ur Squamous Epith Cells Urine Bacteria Hyaline Casts Urine Opiates Screen Urine Fentanyl Screen Ur Barbiturates Screen Ur Phencyclidine Scrn Ur Amphetamines Screen U Benzodiazepines Scrn Urine Cocaine Screen U Marijuana (THC) Screen 10/17/22 10/17/22 10/17/22 14:14 14:16 14:23 MCV MCH MCHC RDW Plt Count MPV Immature Gran % (Auto) Neut % (Auto) Lymph % (Auto) [place] % (Auto) Eos % (Auto) Baso % (Auto) Lymph # (Auto) [place] # (Auto) Eos # (Auto) Baso # (Auto) Abs Immat Gran (auto) Absolute Neuts (auto) Absolute Nucleated RBC Nucleated RBC % (auto) PT INR D-Dimer High Sensitivty Anion Gap Estim Creat Clear Calc Estimated GFR POC Glucose 220 H Random Glucose Lactic Acid Calcium Total Bilirubin AST ALT Alkaline Phosphatase Troponin I High Sens 20.2 D Total Protein Albumin Lipase Urine Color Yellow Urine Appearance Clear Urine pH 5.5 Ur Specific [place] >= 1.030 H Urine Protein Negative Urine Glucose (UA) >=1000 H Urine Ketones Negative Urine Blood Negative Urine Nitrite Negative Ur Leukocyte Esterase Negative Urine RBC 0-2 Urine WBC 0-5 Ur Squamous Epith Cells 0-2 Urine Bacteria None Seen Hyaline Casts 0-2 Urine Opiates Screen Urine Fentanyl Screen Ur Barbiturates Screen Ur Phencyclidine Scrn Ur Amphetamines Screen U Benzodiazepines Scrn Urine Cocaine Screen U Marijuana (THC) Screen 10/17/22 14:23 MCV MCH MCHC RDW Plt Count MPV Immature Gran % (Auto) Neut % (Auto) Lymph % (Auto) [place] % (Auto) Eos % (Auto) Baso % (Auto) Lymph # (Auto) [place] # (Auto) Eos # (Auto) Baso # (Auto) Abs Immat Gran (auto) Absolute Neuts (auto) Absolute Nucleated RBC Nucleated RBC % (auto) PT INR D-Dimer High Sensitivty Anion Gap Estim Creat Clear Calc Estimated GFR POC Glucose Random Glucose Lactic Acid Calcium Total Bilirubin AST ALT Alkaline Phosphatase Troponin I High Sens Total Protein Albumin Lipase Urine Color Urine Appearance Urine pH Ur Specific [place] Urine Protein Urine Glucose (UA) Urine Ketones Urine Blood Urine Nitrite Ur Leukocyte Esterase Urine RBC Urine WBC Ur Squamous Epith Cells Urine Bacteria Hyaline Casts Urine Opiates Screen Not Detected Urine Fentanyl Screen Not Detected Ur Barbiturates Screen Not Detected Ur Phencyclidine Scrn Not Detected Ur Amphetamines Screen Not Detected U Benzodiazepines Scrn Not Detected Urine Cocaine Screen POSITIVE H U Marijuana (THC) Screen POSITIVE H Imaging Radiologist's Impressions: Impressions Chest X-Ray 10/17/22 10:05 IMPRESSION: Multifocal pneumonia involving the right lung. Follow-up until resolution is advised. Chest CTA 10/17/22 13:45 IMPRESSION: No evidence of PE. No evidence of aortic aneurysm or dissection. Right lung pneumonia. VTE: negative Assessment and Plan (1) Multifocal pneumonia: Status: Acute Plan 57 year old man admitted with CAP requiring oxygen CAP Start Rocephin and azithromycin supplemental oxygen Follow blood culture Diabetes mellitus type 2 with elevated blood sugar and Likely secondary to pneumonia Sliding scale, ADA diet Add mealtime insulin if blood sugars do not improve Drug abuse No signs of withdrawal Addiction Team consultation Needs methadone dose verified, patient unable to give dosing Asthma. No exacerbation Albuterol as needed GERD Continue PPI Mental health Continue home medications Hyperlipidemia versus coronary artery disease. Unspecified Unsure of diagnosis on aspirin, statin and beta-lilliana at home Will try to find other hospital records DVT prophylaxis with heparin Attending Dr. Craven Full code Time Spent With Patient Time: Total time managing care of this patient today ____ minutes. Quality Stroke Does the patient have a stroke diagnosis?: No VTE Prior VTE?: No VTE Risk Level:: Medical - moderate - high VTE Device Contraindication: Treatment Not Indicated VTE Drug Contraindication: N/A - Med Ordered
--- NOTE | 2022-10-17 17:09 | PHA.MEDREC ---
Pharmacy Consult ? Medication Reconciliation Pharmacy has completed the medication reconciliation. Unable to speak with patient. Patient is a [facility] patient at [facility] based on claim history
[2022-10-17] MEDS: Enoxaparin Sodium 40 MG/0.4 ML SYRINGE SUBCUT (19:17)
[2022-10-17 22:23] LABS: Glucose, Whole Blood 238 mg/dL (60-115)
[2022-10-17] MEDS: Gabapentin 400 MG CAPSULE 800 MG PO (22:58)
[2022-10-17] MEDS: carvediloL 12.5 MG TABLET PO (22:58)
[2022-10-17] MEDS: Atorvastatin Calcium 20 MG TABLET PO (22:58)
[2022-10-17] MEDS: Insulin Glargine,Hum.rec.anlog 100 UNIT/ML 10 ML VIAL 45 UNIT SUBCUT (22:58)
[2022-10-17] MEDS: diphenhydrAMINE HCL 25 MG CAPSULE PO (22:58)
[2022-10-17] MEDS: QUEtiapine Fumarate 300 MG TABLET PO (22:59)
[2022-10-17] MEDS: Amitriptyline HCl 50 MG TABLET PO (22:59)
[2022-10-17] MEDS: 0.9 % Sodium Chloride Flush 3 ML SYRINGE IVFLUSH (23:01)
[2022-10-18] VITALS (7 sets, daily range): BP systolic 101–120; BP diastolic 57–77; PULSE 75–82; RESP 16–20; TEMP 36.3–36.8; O2SAT 91–96; BMI 29.0
[2022-10-18 00:22] LABS: Glucose, Whole Blood 155 mg/dL (60-115)
[2022-10-18] MEDS: Omeprazole 20 MG CAPSULE.DR PO ×2 (05:52→16:40)
[2022-10-18 06:19] LABS: Hematocrit 35.7 % (42.0-52.0); Hemoglobin 11.8 g/dl (14.0-18.0); Mean Corpuscular HGB Conc 33.1 g/dl (31.0-36.0); Mean Corpuscular Hemoglobin 28.1 pg (27.0-33.0); Mean Platelet Volume 12.5 fL (9.4-12.4); Platelet Count 126 X10*3/uL (160-400); Red Cell Distribution Width 12.4 % (11.0-16.0); White Blood Count 13.7 X10*3/uL (4.8-10.8)
[2022-10-18 06:46] LABS: Estimated Average Glucose 321 mg/dL; Hemoglobin A1c % 12.8 %
[2022-10-18 06:53] LABS: Anion Gap 11 (12-20); Blood Urea Nitrogen 14 mg/dL (9-16); Calcium 8.5 mg/dL (8.4-10.2); Carbon Dioxide 26 mmol/L (22-29); Chloride 104 mmol/L (96-108); Creatinine Clr Calc Pharmacy 109.2; Estimated Glomerular Filt Rate > 60; Glucose Random 110 mg/dL (60-115); Potassium 3.5 mmol/L (3.3-5.1); Sodium 137 mmol/L (135-145)
[2022-10-18 07:23] LABS: Glucose, Whole Blood 107 mg/dL (60-115)
[2022-10-18] MEDS: carvediloL 12.5 MG TABLET PO ×2 (08:54→21:32)
[2022-10-18] MEDS: Fenofibrate 160 MG TABLET PO (08:55)
[2022-10-18] MEDS: Gabapentin 400 MG CAPSULE 800 MG PO ×3 (08:55→21:31)
[2022-10-18] MEDS: guaiFENesin LA 600 MG TAB.ER.12H PO ×2 (08:55→21:31)
[2022-10-18] MEDS: Sertraline HCL 100 MG TABLET PO (08:55)
[2022-10-18] MEDS: 0.9 % Sodium Chloride Flush 3 ML SYRINGE IVFLUSH ×2 (08:57→21:32)
--- NOTE | 2022-10-18 10:24 | P.CDIM_ITS ---
PROVIDER RESPONSE TEXT: To clarify, the appropriate diagnosis supported by the clinical indicators: Diabetes mellitus Type 2 with hyperglycemia QUERY TEXT: PHYSICIAN'S DOCUMENTATION REQUEST Date of Query: 10/18/2022 10:08 AM EDT Patient Name: Mckinley Berry Admit Date: 10/17/2022 Dear Mary Anne Lee, A review of the medical record indicates additional documentation may be needed. Please review below and update the documentation accordingly. Clinical Indicators: POC glucose 453 H 5 units insulin Diabetes mellitus type 2 with elevated blood sugars likely secondary to pneumonia. Please clarify the following regarding the Complications of Diabetes Mellitus (DM): Diabetes mellitus Type 2 with hyperglycemia Other Other (explain)Clinically unable to determine (explain)Thank you, Lindy Burk, CCS, CDIS Use of terms such as suspected, likely, concern for, or probable (associated with a specific diagnosi s that is being evaluated, monitored, or treated as if it exists) are acceptable and can be coded in the inpatient se tting, when documented at the time of discharge. Please use your independent medical judgment in providing your response. THIS QUERY IS PART OF THE PERMANENT MEDICAL RECORD
--- NOTE | 2022-10-18 11:07 | W.MHC.F2F ---
Service Date Service Date: 10/18/22 Encounter Date of encounter: 10/18/22 Reasons for Services Signs and symptoms assessed: odynophagia Reason for retirement: CV/CP assess and/or care (Aspiration pneumonia risk ) and other (Needs speech therapy ) Homebound: Leaving the home is medically contraindicated at this time without the asist of a device and/or another person due th the listed conditions above and below. Reason homebound: unsteady gait / fall risk and weakness related to hospital stay Certification: Based on the above findings, I certify that this patient is confined to the home and needs intermittent retirement care, physical therapy and/or speech therapy, or continues to need occupational therapy. The patient is under my care, and I have initiated the establishment of the plan of care. The patient will be followed by a physician who will periodically review the plan of care. Time Spent With Patient Time: Total time managing care of this patient today ____ minutes.
--- NOTE | 2022-10-18 11:13 | HO.PM.IMPN ---
Subjective Subjective Date of Service: 10/18/22 Review of Systems Follow up PNA Feeling better Productive cough Physical Exam Vital Signs: Vital Signs: Last Vital Signs Temp 97.9 F 10/18/22 07:35 Pulse 82 10/18/22 07:35 Resp 18 10/18/22 07:35 BP 117/68 10/18/22 07:35 Pulse Ox 96 10/18/22 07:35 O2 Del Method Nasal Cannula 10/18/22 07:35 O2 Flow Rate 2 10/18/22 07:35 Oxygen Flow Rate 4 10/17/22 09:03 BMI result Body Mass Index 29.0 Appearing in no acute distress lung sounds rhonchi heart regular rate rhythm, clear S1, S2 positive bowel sounds, abdomen is soft, nontender neuro patient is alert x3, no focal deficits Objective Data Active Medications Acetaminophen (Acetaminophen 325 Mg Tablet) 650 mg PO Q6H PRN PRN Reason: Pain, Mild (Pain Scale 1-3) Albuterol Sulfate (Albuterol Sulfate 90 Mcg 8 Gm Inhaler) 2 puff INHALE QID PRN PRN Reason: Shortness Of Breath Amitriptyline HCl (Amitriptyline Hcl 50 Mg Tablet) 50 mg PO BEDTIME [facility] Last Admin: 10/17/22 22:59 Dose: 50 mg Documented By: GENA Aspirin (Aspirin Enteric Coated 81 Mg Tablet.Dr) 81 mg PO DAILY@1200 [place] Atorvastatin Calcium (Atorvastatin Calcium 20 Mg Tablet) 20 mg PO BEDTIME [facility] Last Admin: 10/17/22 22:58 Dose: 20 mg Documented By: GENA Carvedilol (Carvedilol 12.5 Mg Tablet) 12.5 mg PO BID [facility]; Protocol Last Admin: 10/18/22 08:54 Dose: 12.5 mg Documented By: SINAN Dextrose (Dextrose 50 % 25 Gm/50 Ml Syringe) 25 gm IVPUSH Q15M PRN; Protocol PRN Reason: per Hypoglycemia Standing Ord. Diphenhydramine HCl (Diphenhydramine Hcl 25 Mg Capsule) 25 mg PO BEDTIME [facility] Last Admin: 10/17/22 22:58 Dose: 25 mg Documented By: GENA Enoxaparin Sodium (Enoxaparin Sodium 40 Mg/0.4 Ml Syringe) 40 mg SUBCUT Q24H [facility] Last Admin: 10/17/22 19:17 Dose: 40 mg Documented By: AYDEN Fenofibrate (Fenofibrate 160 Mg Tablet) 160 mg PO DAILY [facility] Last Admin: 10/18/22 08:55 Dose: 160 mg Documented By: SINAN Fluticasone Propionate (Fluticasone Propionate Nasal 16 Gm [place]) 2 spray NOSTRIL-B DAILY [facility] Last Admin: 10/18/22 09:01 Dose: Not Given Documented By: SINAN Non-Admin Reason: Patient Refused Fluticasone/Vilanterol (Fluticasone/Vilanterol 200/25 Blst.W.Dev) 1 puff INHALE RDAILY [facility] Last Admin: 10/18/22 08:16 Dose: Not Given Documented By: MIKAELA Non-Admin Reason: Med Not Available Gabapentin (Gabapentin 400 Mg Capsule) 800 mg PO TID [facility] Last Admin: 10/18/22 08:55 Dose: 800 mg Documented By: SINAN Glucose (Glucose Gel 15 Gm Gel..Gram.) 15 gm PO Q15M PRN; Protocol PRN Reason: per Hypoglycemia Standing Ord. Guaifenesin (Guaifenesin La 600 Mg Tab.Er.12h) 600 mg PO BID [facility] Last Admin: 10/18/22 08:55 Dose: 600 mg Documented By: SINAN Hydroxyzine HCl (Hydroxyzine Hcl 50 Mg Tablet) 50 mg PO TID PRN PRN Reason: Anxiety Ceftriaxone Sodium 1 gm/ (Sodium Chloride) 50 mls @ 100 mls/hr IV Q24H [facility] Azithromycin 500 mg/ Sodium (Chloride) 250 mls @ 125 mls/hr IV Q24H [facility] Insulin Glargine (Insulin Glargine,Hum.Rec.Anlog 100 Unit/Ml 10 Ml Vial) 45 unit SUBCUT BEDTIME [facility] Last Admin: 10/17/22 22:58 Dose: 45 unit Documented By: GENA Insulin Human Lispro (Insulin Lispro 100 Unit/Ml 3 Ml Vial) 0 unit SUBCUT QIDACHS [facility]; Protocol Last Admin: 10/18/22 07:31 Dose: Not Given Documented By: SINAN Non-Admin Reason: No Insulin Coverage Loratadine (Loratadine 10 Mg Tablet) 10 mg PO DAILY@1200 [place] Omeprazole (Omeprazole 20 Mg Capsule.Dr) 20 mg PO BID@0630,1630 [facility] Last Admin: 10/18/22 05:52 Dose: 20 mg Documented By: ELVA Ondansetron HCl (Ondansetron Hcl 4 Mg/2 Ml Vial) 4 mg IVPUSH Q8H PRN PRN Reason: Nausea and Vomiting Pharmacy Consult (Consult Rx Perform Med Rec) 1 each MISCELLANE ONCE PRN PRN Reason: Consult order Quetiapine Fumarate (Quetiapine Fumarate 25 Mg Tablet) 25 mg PO BID PRN PRN Reason: anxiety Quetiapine Fumarate (Quetiapine Fumarate 300 Mg Tablet) 300 mg PO BEDTIME [facility] Last Admin: 10/17/22 22:59 Dose: 300 mg Documented By: GENA Sertraline HCl (Sertraline Hcl 100 Mg Tablet) 100 mg PO DAILY [facility] Last Admin: 10/18/22 08:55 Dose: 100 mg Documented By: SINAN Sodium Chloride (0.9 % Sodium Chloride Flush 3 Ml Syringe) 3 ml IVFLUSH QSHIFT [facility] Last Admin: 10/18/22 08:57 Dose: 3 ml Documented By: SINAN Labs 10/18/22 05:53 10/18/22 06:19 Labs: Laboratory Results - last 24 hr 10/17/22 10/17/22 10/17/22 14:14 14:16 14:23 MCV MCH MCHC RDW Plt Count MPV Absolute Nucleated RBC Nucleated RBC % (auto) Anion Gap Estim Creat Clear Calc Estimated GFR POC Glucose 220 H Random Glucose Estimat Average Glucose Hemoglobin A1c % Calcium Troponin I High Sens 20.2 D Urine Color Yellow Urine Appearance Clear Urine pH 5.5 Ur Specific [place] >= 1.030 H Urine Protein Negative Urine Glucose (UA) >=1000 H Urine Ketones Negative Urine Blood Negative Urine Nitrite Negative Ur Leukocyte Esterase Negative Urine RBC 0-2 Urine WBC 0-5 Ur Squamous Epith Cells 0-2 Urine Bacteria None Seen Hyaline Casts 0-2 Urine Opiates Screen Urine Fentanyl Screen Ur Barbiturates Screen Ur Phencyclidine Scrn Ur Amphetamines Screen U Benzodiazepines Scrn Urine Cocaine Screen U Marijuana (THC) Screen 10/17/22 10/17/22 10/18/22 14:23 22:18 00:17 MCV MCH MCHC RDW Plt Count MPV Absolute Nucleated RBC Nucleated RBC % (auto) Anion Gap Estim Creat Clear Calc Estimated GFR POC Glucose 238 H 155 H Random Glucose Estimat Average Glucose Hemoglobin A1c % Calcium Troponin I High Sens Urine Color Urine Appearance Urine pH Ur Specific [place] Urine Protein Urine Glucose (UA) Urine Ketones Urine Blood Urine Nitrite Ur Leukocyte Esterase Urine RBC Urine WBC Ur Squamous Epith Cells Urine Bacteria Hyaline Casts Urine Opiates Screen Not Detected Urine Fentanyl Screen Not Detected Ur Barbiturates Screen Not Detected Ur Phencyclidine Scrn Not Detected Ur Amphetamines Screen Not Detected U Benzodiazepines Scrn Not Detected Urine Cocaine Screen POSITIVE H U Marijuana (THC) Screen POSITIVE H 10/18/22 10/18/22 10/18/22 05:53 06:19 06:19 MCV 85.0 MCH 28.1 MCHC 33.1 RDW 12.4 Plt Count 126 L D MPV 12.5 H Absolute Nucleated RBC 0.000 Nucleated RBC % (auto) 0.0 Anion Gap 11 L Estim Creat Clear Calc 109.2 Estimated GFR > 60 POC Glucose Random Glucose 110 Estimat Average Glucose 321 Hemoglobin A1c % 12.8 Calcium 8.5 D Troponin I High Sens Urine Color Urine Appearance Urine pH Ur Specific [place] Urine Protein Urine Glucose (UA) Urine Ketones Urine Blood Urine Nitrite Ur Leukocyte Esterase Urine RBC Urine WBC Ur Squamous Epith Cells Urine Bacteria Hyaline Casts Urine Opiates Screen Urine Fentanyl Screen Ur Barbiturates Screen Ur Phencyclidine Scrn Ur Amphetamines Screen U Benzodiazepines Scrn Urine Cocaine Screen U Marijuana (THC) Screen 10/18/22 07:08 MCV MCH MCHC RDW Plt Count MPV Absolute Nucleated RBC Nucleated RBC % (auto) Anion Gap Estim Creat Clear Calc Estimated GFR POC Glucose 107 Random Glucose Estimat Average Glucose Hemoglobin A1c % Calcium Troponin I High Sens Urine Color Urine Appearance Urine pH Ur Specific [place] Urine Protein Urine Glucose (UA) Urine Ketones Urine Blood Urine Nitrite Ur Leukocyte Esterase Urine RBC Urine WBC Ur Squamous Epith Cells Urine Bacteria Hyaline Casts Urine Opiates Screen Urine Fentanyl Screen Ur Barbiturates Screen Ur Phencyclidine Scrn Ur Amphetamines Screen U Benzodiazepines Scrn Urine Cocaine Screen U Marijuana (THC) Screen Assessment and Plan (1) Multifocal pneumonia: Status: Acute Plan 57 year old man admitted with CAP requiring oxygen CAP Start Rocephin and azithromycin supplemental oxygen blood culture pending Diabetes mellitus type 2 with elevated blood sugar and Likely secondary to pneumonia Sliding scale, ADA diet Add mealtime insulin if? blood sugars do not improve Drug abuse No signs of withdrawal Addiction Team consultation Needs methadone dose verified,? patient unable to give dosing Asthma. No exacerbation Albuterol as needed GERD Continue PPI Mental health Continue home medications Hyperlipidemia versus coronary artery disease.? Unspecified Unsure of diagnosis on aspirin, statin and beta-lilliana at home Will try to find other hospital records DVT prophylaxis with heparin Attending Dr. Ho Full code continue hospitalization for treatment pneumonia requiring IV antibiotics Time Spent With Patient Time: Total time managing care of this patient today ____ minutes. Quality Stroke Does the patient have a stroke diagnosis?: No VTE Prior VTE?: No VTE Risk Level:: Medical - moderate - high VTE Device Contraindication: Treatment Not Indicated VTE Drug Contraindication: N/A - Med Ordered
[2022-10-18] MEDS: cefTRIAXone sodium 1 GM in 0.9 % Sodium Chloride 50 ML IV (11:31)
[2022-10-18 11:32] LABS: Glucose, Whole Blood 185 mg/dL (60-115)
[2022-10-18] MEDS: Insulin Lispro 100 UNIT/ML 3 ML VIAL SUBCUT ×3 (11:32→21:33)
[2022-10-18] MEDS: Loratadine 10 MG TABLET PO (11:32)
[2022-10-18] MEDS: Aspirin Enteric Coated 81 MG TABLET.DR PO (11:32)
--- NOTE | 2022-10-18 12:00 | HE.PHANOTE ---
RE METHADONE [facility] LAST DOSE 75MG 10/16 @1000 [place]
[2022-10-18] MEDS: methADONE HCl 20 MG/2 ML ORAL.CONC 75 MG PO (12:48)
--- NOTE | 2022-10-18 13:34 | MHC.CM.PN ---
pt lives w/friends pt plans to take a bus home or walk or [facility] shuttle dc plan home w/vna
[2022-10-18] MEDS: Azithromycin 500 MG in 0.9 % Sodium Chloride 250 ML 125 MG IV (14:19)
--- NOTE | 2022-10-18 15:19 | MHC.RECOVRN ---
Met with pt in 372 after consult placed to Addiction Medicine. Pt admitted to [facility] for multifocal pneumonia after presenting to the ED with SOB and dizziness. Pt sitting in bed, awake, alert, easily engages in conversation. Pt is currently receiving methadone through [facility] x 6-7 years. Currently at 75 mg daily. Pt receives take home bottles, however, take homes have been withdrawn due to pt returning to the [facility] with full bottles x 2. Pt reports he forgot to take the medication. Pt reports abstinence from opioids x 3 years. Pt reports cocaine use, INH, $5-$10 2x monthly. Pt reports he no longer uses cocaine IN due to damage caused by years of use. Pt does not currently desire support with cocaine use. Discussed recovery supports and resources, pt wishes to follow up with counselor, Gee Ty, at the [facility]. Pt denies questions or concerns for t/w.
[2022-10-18 16:36] LABS: Glucose, Whole Blood 240 mg/dL (60-115)
[2022-10-18] MEDS: Enoxaparin Sodium 40 MG/0.4 ML SYRINGE SUBCUT (18:07)
[2022-10-18 20:43] LABS: Glucose, Whole Blood 165 mg/dL (60-115)
[2022-10-18] MEDS: Amitriptyline HCl 50 MG TABLET PO (21:31)
[2022-10-18] MEDS: QUEtiapine Fumarate 300 MG TABLET PO (21:31)
[2022-10-18] MEDS: Atorvastatin Calcium 20 MG TABLET PO (21:31)
[2022-10-18] MEDS: diphenhydrAMINE HCL 25 MG CAPSULE PO (21:32)
[2022-10-18] MEDS: Insulin Glargine,Hum.rec.anlog 100 UNIT/ML 10 ML VIAL 45 UNIT SUBCUT (21:33)
[2022-10-19 04:00] VITALS: BP 109/65; PULSE 69; RESP 16; TEMP 36.4; O2SAT 94
[2022-10-19] MEDS: Omeprazole 20 MG CAPSULE.DR PO ×2 (05:56→16:39)
[2022-10-19 07:10] VITALS: BP 112/62; PULSE 75; RESP 18; TEMP 36.3; O2SAT 92
[2022-10-19] MEDS: guaiFENesin LA 600 MG TAB.ER.12H PO ×2 (07:30→21:41)
[2022-10-19] MEDS: methADONE HCl 20 MG/2 ML ORAL.CONC 75 MG PO (07:30)
[2022-10-19] MEDS: Sertraline HCL 100 MG TABLET PO (07:30)
[2022-10-19] MEDS: carvediloL 12.5 MG TABLET PO ×2 (07:30→21:41)
[2022-10-19] MEDS: Gabapentin 400 MG CAPSULE 800 MG PO ×3 (07:31→21:41)
[2022-10-19] MEDS: Fenofibrate 160 MG TABLET PO (07:31)
[2022-10-19] MEDS: 0.9 % Sodium Chloride Flush 3 ML SYRINGE IVFLUSH (07:31)
[2022-10-19 07:36] LABS: Glucose, Whole Blood 139 mg/dL (60-115)
[2022-10-19 08:23] LABS: Hematocrit 35.6 % (42.0-52.0); Hemoglobin 11.5 g/dl (14.0-18.0); Mean Corpuscular HGB Conc 32.3 g/dl (31.0-36.0); Mean Corpuscular Hemoglobin 27.7 pg (27.0-33.0); Mean Corpuscular Volume 85.8 fL (80.0-98.0); Mean Platelet Volume 11.5 fL (9.4-12.4); Platelet Count 195 X10*3/uL (160-400); Red Blood Count 4.15 X10*6/uL (4.60-5.80); Red Cell Distribution Width 12.4 % (11.0-16.0); White Blood Count 9.3 X10*3/uL (4.8-10.8)
[2022-10-19] MEDS: predniSONE 20 MG TABLET 40 MG PO (11:03)
[2022-10-19] MEDS: Aspirin Enteric Coated 81 MG TABLET.DR PO (11:03)
[2022-10-19] MEDS: Loratadine 10 MG TABLET PO (11:03)
[2022-10-19] MEDS: cefTRIAXone sodium 1 GM in 0.9 % Sodium Chloride 50 ML IV (11:04)
[2022-10-19 11:19] VITALS: BP 122/83; PULSE 77; RESP 20; TEMP 36.1; O2SAT 91
[2022-10-19 11:45] LABS: Glucose, Whole Blood 159 mg/dL (60-115)
[2022-10-19] MEDS: Insulin Lispro 100 UNIT/ML 3 ML VIAL SUBCUT ×4 (11:46→21:41)
--- NOTE | 2022-10-19 13:26 | HO.PM.IMPN ---
Subjective Subjective Date of Service: 10/19/22 Interval History: seen and examined this am follow up for pneumonia hypoxic this am while off oxygen still having productive cough, but denies sob Review of Systems Review of Systems: Yes all other systems are reviewed and are negative Constitutional Constitutional: Denies chills and Denies fever(s) ENT Ears, Nose, Mouth, and Throat: Denies dizziness Cardiovascular Cardiovascular: Denies chest pain, Denies palpitations and Denies dyspnea Respiratory Respiratory: Reports cough and Denies dyspnea Gastrointestinal Gastrointestinal: Denies abdominal pain, Denies nausea and Denies vomiting Neurologic Neurologic: Denies dizziness Endocrine Endocrine: Denies palpitations Physical Exam Vital Signs: Vital Signs: Last Vital Signs Temp 96.9 F 10/19/22 11:19 Pulse 77 10/19/22 11:19 Resp 20 10/19/22 11:19 BP 122/83 10/19/22 11:19 Pulse Ox 91 L 10/19/22 11:19 O2 Del Method Room Air 10/19/22 11:19 O2 Flow Rate 2 10/19/22 07:10 Oxygen Flow Rate 4 10/17/22 09:03 BMI result Body Mass Index 29.0 Const: General: cooperative, comfortable, no acute distress, alert and awake Nutritional Appearance: average body habitus Orientation/consciousness: patient oriented x3 Resp: Other: rhonchi Effort & Inspection: normal respiratory effort, able to speak in complete sentences, no respiratory distress and no use of accessory muscles Cardio: Rate: regular rate Heart sounds: S1 normal heart sound present and S2 normal heart sound present GI: Inspection: No distended Palpation (GI): Soft to palpation and nontender Neuro: General: patient oriented x3 and No CN's II-XI intact bilaterally Extrem: General: Yes no pedal edema Objective Data Active Medications Acetaminophen (Acetaminophen 325 Mg Tablet) 650 mg PO Q6H PRN PRN Reason: Pain, Mild (Pain Scale 1-3) Albuterol Sulfate (Albuterol Sulfate 90 Mcg 8 Gm Inhaler) 2 puff INHALE QID PRN PRN Reason: Shortness Of Breath Amitriptyline HCl (Amitriptyline Hcl 50 Mg Tablet) 50 mg PO BEDTIME [facility] Last Admin: 10/18/22 21:31 Dose: 50 mg Documented By: OLGA Aspirin (Aspirin Enteric Coated 81 Mg Tablet.) 81 mg PO DAILY@1200 [facility] Last Admin: 10/19/22 11:03 Dose: 81 mg Documented By: SINAN Atorvastatin Calcium (Atorvastatin Calcium 20 Mg Tablet) 20 mg PO BEDTIME [facility] Last Admin: 10/18/22 21:31 Dose: 20 mg Documented By: OLGA Carvedilol (Carvedilol 12.5 Mg Tablet) 12.5 mg PO BID [facility]; Protocol Last Admin: 10/19/22 07:30 Dose: 12.5 mg Documented By: SINAN Dextrose (Dextrose 50 % 25 Gm/50 Ml Syringe) 25 gm IVPUSH Q15M PRN; Protocol PRN Reason: per Hypoglycemia Standing Ord. Diphenhydramine HCl (Diphenhydramine Hcl 25 Mg Capsule) 25 mg PO BEDTIME [facility] Last Admin: 10/18/22 21:32 Dose: 25 mg Documented By: OLGA Enoxaparin Sodium (Enoxaparin Sodium 40 Mg/0.4 Ml Syringe) 40 mg SUBCUT Q24H [facility] Last Admin: 10/18/22 18:07 Dose: 40 mg Documented By: SINAN Fenofibrate (Fenofibrate 160 Mg Tablet) 160 mg PO DAILY [facility] Last Admin: 10/19/22 07:31 Dose: 160 mg Documented By: SINAN Fluticasone Propionate (Fluticasone Propionate Nasal 16 Gm [place]) 2 spray NOSTRIL-B DAILY [facility] Last Admin: 10/19/22 11:08 Dose: Not Given Documented By: SINAN Non-Admin Reason: Patient Asleep Fluticasone/Vilanterol (Fluticasone/Vilanterol 200/25 Blst.W.Dev) 1 puff INHALE RDAILY [facility] Last Admin: 10/19/22 11:08 Dose: Not Given Documented By: SINAN Non-Admin Reason: Patient Asleep Gabapentin (Gabapentin 400 Mg Capsule) 800 mg PO TID [facility] Last Admin: 10/19/22 07:31 Dose: 800 mg Documented By: SINAN Glucose (Glucose Gel 15 Gm Gel..Gram.) 15 gm PO Q15M PRN; Protocol PRN Reason: per Hypoglycemia Standing Ord. Guaifenesin (Guaifenesin La 600 Mg Tab.Er.12h) 600 mg PO BID [facility] Last Admin: 10/19/22 07:30 Dose: 600 mg Documented By: SINAN Hydroxyzine HCl (Hydroxyzine Hcl 50 Mg Tablet) 50 mg PO TID PRN PRN Reason: Anxiety Ceftriaxone Sodium 1 gm/ (Sodium Chloride) 50 mls @ 100 mls/hr IV Q24H [facility] Last Infusion: 10/19/22 11:37 Dose: 0 mls/hr Documented By: SINAN Azithromycin 500 mg/ Sodium (Chloride) 250 mls @ 125 mls/hr IV Q24H [facility] Last Infusion: 10/18/22 16:19 Dose: 0 mls/hr Documented By: SINAN Insulin Glargine (Insulin Glargine,Hum.Rec.Anlog 100 Unit/Ml 10 Ml Vial) 45 unit SUBCUT BEDTIME [facility] Last Admin: 10/18/22 21:33 Dose: 45 unit Documented By: OLGA Insulin Human Lispro (Insulin Lispro 100 Unit/Ml 3 Ml Vial) 0 unit SUBCUT QIDACHS [facility]; Protocol Last Admin: 10/19/22 11:46 Dose: 2 unit Documented By: SINAN Loratadine (Loratadine 10 Mg Tablet) 10 mg PO DAILY@1200 [facility] Last Admin: 10/19/22 11:03 Dose: 10 mg Documented By: SINAN Methadone HCl (Methadone Hcl 20 Mg/2 Ml Oral.Conc) 75 mg PO DAILY [facility] Last Admin: 10/19/22 07:30 Dose: 75 mg Documented By: SINAN Omeprazole (Omeprazole 20 Mg Capsule.Dr) 20 mg PO BID@0630,1630 [facility] Last Admin: 10/19/22 05:56 Dose: 20 mg Documented By: OLGA Ondansetron HCl (Ondansetron Hcl 4 Mg/2 Ml Vial) 4 mg IVPUSH Q8H PRN PRN Reason: Nausea and Vomiting Pharmacy Consult (Consult Rx Perform Med Rec) 1 each MISCELLANE ONCE PRN PRN Reason: Consult order Prednisone (Prednisone 20 Mg Tablet) 40 mg PO DAILY [facility] Last Admin: 10/19/22 11:03 Dose: 40 mg Documented By: SINAN Quetiapine Fumarate (Quetiapine Fumarate 25 Mg Tablet) 25 mg PO BID PRN PRN Reason: anxiety Quetiapine Fumarate (Quetiapine Fumarate 300 Mg Tablet) 300 mg PO BEDTIME [facility] Last Admin: 10/18/22 21:31 Dose: 300 mg Documented By: OLGA Sertraline HCl (Sertraline Hcl 100 Mg Tablet) 100 mg PO DAILY [facility] Last Admin: 10/19/22 07:30 Dose: 100 mg Documented By: SINAN Sodium Chloride (0.9 % Sodium Chloride Flush 3 Ml Syringe) 3 ml IVFLUSH QSHIFT [facility] Last Admin: 10/19/22 07:31 Dose: 3 ml Documented By: SINAN Labs 10/19/22 08:02 10/18/22 06:19 Labs: Laboratory Results - last 24 hr 10/18/22 10/18/22 10/19/22 16:30 20:32 07:13 MCV MCH MCHC RDW Plt Count MPV Absolute Nucleated RBC Nucleated RBC % (auto) POC Glucose 240 H 165 H 139 H 10/19/22 10/19/22 08:02 11:24 MCV 85.8 MCH 27.7 MCHC 32.3 RDW 12.4 Plt Count 195 D MPV 11.5 Absolute Nucleated RBC 0.000 Nucleated RBC % (auto) 0.0 POC Glucose 159 H Microbiology Microbiology Results: Microbiology 10/17/22 09:52 Blood Culture - Preliminary Blood - Venous No growth after 48 hours. 10/17/22 09:40 Blood Culture - Preliminary Blood - Venous No growth after 48 hours. Assessment and Plan (1) Pneumonia: Status: Acute Plan 57 year old man admitted with CAP requiring oxygen CAP leukocytosis resolved continue Rocephin and azithromycin still requiring supplemental oxygen, wean as tolerated possible component of pneumonitis, will add steroids blood culture negative to date Moderate persistent Asthma No exacerbation Albuterol as needed Diabetes mellitus type 2 with elevated blood sugar and Likely secondary to pneumonia Sliding scale, ADA diet hold glipizide, metformin Drug abuse No signs of withdrawal ssen by Addiction medicine, resources provider continue baseline dose of methadone GERD Continue PPI Mental health Continue home medications Hyperlipidemia versus coronary artery disease.? Unspecified Unsure of diagnosis on aspirin, statin and beta-lilliana at home Will try to find other hospital records DVT prophylaxis- lovenox Attending Dr. Ho Full code continue hospitalization for treatment pneumonia requiring IV antibiotics Time Spent With Patient Time: Total time managing care of this patient today ____ minutes. Quality Stroke Does the patient have a stroke diagnosis?: No VTE Prior VTE?: No VTE Risk Level:: Medical - moderate - high VTE Device Contraindication: Treatment Not Indicated VTE Drug Contraindication: N/A - Med Ordered
[2022-10-19] MEDS: Azithromycin 500 MG in 0.9 % Sodium Chloride 250 ML 125 MG IV (13:50)
[2022-10-19] MEDS: Acetaminophen 325 MG TABLET 650 MG PO (14:03)
[2022-10-19 15:38] VITALS: BP 124/63; PULSE 82; RESP 16; TEMP 36.7; O2SAT 92
--- NOTE | 2022-10-19 16:14 | MHC.CM.PN ---
EMR REVIEWED AND PER MD ROUNDS, PT IS NOT MEDICALLY CLEARED FOR DC (HYPOXIC, IV ANBT) CM WILL CONTINUE TO FOLLOW FR DC PLAN/NEEDS.
[2022-10-19 16:22] LABS: Glucose, Whole Blood 410 mg/dL (60-115)
[2022-10-19] MEDS: Enoxaparin Sodium 40 MG/0.4 ML SYRINGE SUBCUT (17:52)
[2022-10-19 19:19] VITALS: BP 143/65; PULSE 90; RESP 16; TEMP 37.1; O2SAT 92
[2022-10-19 20:38] LABS: Glucose, Whole Blood 339 mg/dL (60-115)
[2022-10-19] MEDS: diphenhydrAMINE HCL 25 MG CAPSULE PO (21:41)
[2022-10-19] MEDS: QUEtiapine Fumarate 300 MG TABLET PO (21:41)
[2022-10-19] MEDS: Atorvastatin Calcium 20 MG TABLET PO (21:41)
[2022-10-19] MEDS: Amitriptyline HCl 50 MG TABLET PO (21:41)
[2022-10-19] MEDS: Insulin Glargine,Hum.rec.anlog 100 UNIT/ML 10 ML VIAL 45 UNIT SUBCUT (21:42)
[2022-10-20 04:00] VITALS: BP 139/70; PULSE 80; RESP 16; TEMP 36.2; O2SAT 92
[2022-10-20] MEDS: Omeprazole 20 MG CAPSULE.DR PO ×2 (05:53→16:38)
[2022-10-20 07:13] VITALS: BP 143/70; PULSE 67; RESP 18; TEMP 36; O2SAT 94
[2022-10-20 07:25] LABS: Glucose, Whole Blood 163 mg/dL (60-115)
[2022-10-20] MEDS: Gabapentin 400 MG CAPSULE 800 MG PO ×3 (08:05→20:49)
[2022-10-20] MEDS: 0.9 % Sodium Chloride Flush 3 ML SYRINGE IVFLUSH ×2 (08:05→19:13)
[2022-10-20] MEDS: predniSONE 20 MG TABLET 40 MG PO (08:05)
[2022-10-20] MEDS: carvediloL 12.5 MG TABLET PO ×2 (08:05→20:49)
[2022-10-20] MEDS: methADONE HCl 20 MG/2 ML ORAL.CONC 75 MG PO (08:05)
[2022-10-20] MEDS: Sertraline HCL 100 MG TABLET PO (08:05)
[2022-10-20] MEDS: guaiFENesin LA 600 MG TAB.ER.12H PO ×2 (08:05→20:50)
[2022-10-20] MEDS: Fenofibrate 160 MG TABLET PO (08:05)
[2022-10-20] MEDS: Insulin Lispro 100 UNIT/ML 3 ML VIAL SUBCUT ×4 (08:06→20:51)
[2022-10-20 11:26] LABS: Glucose, Whole Blood 205 mg/dL (60-115)
[2022-10-20] MEDS: Loratadine 10 MG TABLET PO (11:38)
[2022-10-20] MEDS: hydrOXYzine HCL 50 MG TABLET PO (11:38)
[2022-10-20] MEDS: cefTRIAXone sodium 1 GM in 0.9 % Sodium Chloride 50 ML IV (11:38)
[2022-10-20] MEDS: Aspirin Enteric Coated 81 MG TABLET.DR PO (11:39)
[2022-10-20] MEDS: Azithromycin 500 MG in 0.9 % Sodium Chloride 250 ML 125 MG IV (14:01)
[2022-10-20 15:16] VITALS: BP 137/75; PULSE 69; RESP 16; TEMP 36.3; O2SAT 93
--- NOTE | 2022-10-20 15:19 | P.PNIM_ITS ---
Subjective Subjective Date of Service: 10/20/22 Interval History: seen and examined this morning Follow-up for pneumonia Continues to have productive cough, denies shortness of breath Was noted to desaturate with exertion Review of Systems Review of Systems: Yes all other systems are reviewed and are negative Constitutional Constitutional: Denies chills and Denies fever(s) Cardiovascular Cardiovascular: Denies chest pain, Denies palpitations and Denies dyspnea Respiratory Respiratory: Reports cough and Denies dyspnea Gastrointestinal Gastrointestinal: Denies abdominal pain, Denies nausea and Denies vomiting Endocrine Endocrine: Denies palpitations Physical Exam Vital Signs: Vital Signs: Last Vital Signs Temp 97.4 F 10/20/22 15:16 Pulse 69 10/20/22 15:16 Resp 16 10/20/22 15:16 BP 137/75 10/20/22 15:16 Pulse Ox 93 10/20/22 15:16 O2 Del Method Nasal Cannula 10/20/22 15:16 O2 Flow Rate 2 10/20/22 15:16 Oxygen Flow Rate 4 10/17/22 09:03 BMI result Body Mass Index 29.0 Const: General: cooperative, comfortable, no acute distress, alert and awake Nutritional Appearance: average body habitus Orientation/consciousness: patient oriented x3 Resp: Effort & Inspection: normal respiratory effort, able to speak in complete sentences, no respiratory distress and no use of accessory muscles Auscultation: clear to auscultation bilaterally Cardio: Rate: regular rate Heart sounds: S1 normal heart sound present and S2 normal heart sound present GI: Inspection: No distended Palpation (GI): Soft to palpation and nontender Neuro: General: patient oriented x3 and No CN's II-XI intact bilaterally Extrem: General: Yes no pedal edema Objective Data Active Medications Acetaminophen (Acetaminophen 325 Mg Tablet) 650 mg PO Q6H PRN PRN Reason: Pain, Mild (Pain Scale 1-3) Last Admin: 10/19/22 14:03 Dose: 650 mg Documented By: SINAN Albuterol Sulfate (Albuterol Sulfate 90 Mcg 8 Gm Inhaler) 2 puff INHALE QID PRN PRN Reason: Shortness Of Breath Amitriptyline HCl (Amitriptyline Hcl 50 Mg Tablet) 50 mg PO BEDTIME [facility] Last Admin: 10/19/22 21:41 Dose: 50 mg Documented By: BRYSON Aspirin (Aspirin Enteric Coated 81 Mg Tablet.) 81 mg PO DAILY@1200 [facility] Last Admin: 10/20/22 11:39 Dose: 81 mg Documented By: DIANA Atorvastatin Calcium (Atorvastatin Calcium 20 Mg Tablet) 20 mg PO BEDTIME [facility] Last Admin: 10/19/22 21:41 Dose: 20 mg Documented By: BRYSON Carvedilol (Carvedilol 12.5 Mg Tablet) 12.5 mg PO BID [facility]; Protocol Last Admin: 10/20/22 08:05 Dose: 12.5 mg Documented By: ZAKIYA Dextrose (Dextrose 50 % 25 Gm/50 Ml Syringe) 25 gm IVPUSH Q15M PRN; Protocol PRN Reason: per Hypoglycemia Standing Ord. Diphenhydramine HCl (Diphenhydramine Hcl 25 Mg Capsule) 25 mg PO BEDTIME [facility] Last Admin: 10/19/22 21:41 Dose: 25 mg Documented By: BRYSON Enoxaparin Sodium (Enoxaparin Sodium 40 Mg/0.4 Ml Syringe) 40 mg SUBCUT Q24H [facility] Last Admin: 10/19/22 17:52 Dose: 40 mg Documented By: SINAN Fenofibrate (Fenofibrate 160 Mg Tablet) 160 mg PO DAILY [facility] Last Admin: 10/20/22 08:05 Dose: 160 mg Documented By: ZAKIYA Fluticasone Propionate (Fluticasone Propionate Nasal 16 Gm Dozier) 2 spray NOSTRIL-B DAILY [facility] Last Admin: 10/20/22 10:48 Dose: Not Given Documented By: ZAKIYA Non-Admin Reason: Patient Refused Fluticasone/Vilanterol (Fluticasone/Vilanterol 200/25 Blst.W.Dev) 1 puff INHALE RDAILY [facility] Last Admin: 10/20/22 07:50 Dose: Not Given Documented By: LIONEL Non-Admin Reason: med unavailable Gabapentin (Gabapentin 400 Mg Capsule) 800 mg PO TID [facility] Last Admin: 10/20/22 14:01 Dose: 800 mg Documented By: ZAKIYA Glucose (Glucose Gel 15 Gm Gel..Gram.) 15 gm PO Q15M PRN; Protocol PRN Reason: per Hypoglycemia Standing Ord. Guaifenesin (Guaifenesin La 600 Mg Tab.Er.12h) 600 mg PO BID [facility] Last Admin: 10/20/22 08:05 Dose: 600 mg Documented By: ZAKIYA Hydroxyzine HCl (Hydroxyzine Hcl 50 Mg Tablet) 50 mg PO TID PRN PRN Reason: Anxiety Last Admin: 10/20/22 11:38 Dose: 50 mg Documented By: DIANA Ceftriaxone Sodium 1 gm/ (Sodium Chloride) 50 mls @ 100 mls/hr IV Q24H [facility] Last Infusion: 10/20/22 12:14 Dose: 0 mls/hr Documented By: ZAKIYA Azithromycin 500 mg/ Sodium (Chloride) 250 mls @ 125 mls/hr IV Q24H [facility] Last Admin: 10/20/22 14:01 Dose: 125 mls/hr Documented By: ZAKIYA Insulin Glargine (Insulin Glargine,Hum.Rec.Anlog 100 Unit/Ml 10 Ml Vial) 45 unit SUBCUT BEDTIME [facility] Last Admin: 10/19/22 21:42 Dose: 45 unit Documented By: BRYSON Insulin Human Lispro (Insulin Lispro 100 Unit/Ml 3 Ml Vial) 0 unit SUBCUT QIDACHS [facility]; Protocol Last Admin: 10/20/22 11:38 Dose: 4 unit Documented By: DIANA Loratadine (Loratadine 10 Mg Tablet) 10 mg PO DAILY@1200 [facility] Last Admin: 10/20/22 11:38 Dose: 10 mg Documented By: DIANA Methadone HCl (Methadone Hcl 20 Mg/2 Ml Oral.Conc) 75 mg PO DAILY [facility] Last Admin: 10/20/22 08:05 Dose: 75 mg Documented By: ZAKIYA Omeprazole (Omeprazole 20 Mg Capsule.Dr) 20 mg PO BID@0630,1630 [facility] Last Admin: 10/20/22 05:53 Dose: 20 mg Documented By: BRYSON Ondansetron HCl (Ondansetron Hcl 4 Mg/2 Ml Vial) 4 mg IVPUSH Q8H PRN PRN Reason: Nausea and Vomiting Pharmacy Consult (Consult Rx Perform Med Rec) 1 each MISCELLANE ONCE PRN PRN Reason: Consult order Prednisone (Prednisone 20 Mg Tablet) 40 mg PO DAILY [facility] Last Admin: 10/20/22 08:05 Dose: 40 mg Documented By: ZAKIYA Quetiapine Fumarate (Quetiapine Fumarate 25 Mg Tablet) 25 mg PO BID PRN PRN Reason: anxiety Quetiapine Fumarate (Quetiapine Fumarate 300 Mg Tablet) 300 mg PO BEDTIME [facility] Last Admin: 10/19/22 21:41 Dose: 300 mg Documented By: BRYSON Sertraline HCl (Sertraline Hcl 100 Mg Tablet) 100 mg PO DAILY [facility] Last Admin: 10/20/22 08:05 Dose: 100 mg Documented By: ZAKIYA Sodium Chloride (0.9 % Sodium Chloride Flush 3 Ml Syringe) 3 ml IVFLUSH QSHIFT [facility] Last Admin: 10/20/22 15:17 Dose: Not Given Documented By: ZAKIYA Non-Admin Reason: IV Running Labs 10/19/22 08:02 10/18/22 06:19 Labs: Laboratory Results - last 24 hr 10/19/22 10/19/22 10/20/22 16:18 20:34 07:18 POC Glucose 410 H* 339 H 163 H 10/20/22 11:22 POC Glucose 205 H Microbiology Microbiology Results: Microbiology 10/17/22 09:52 Blood Culture - Preliminary Blood - Venous No growth after 48 hours. 10/17/22 09:40 Blood Culture - Preliminary Blood - Venous No growth after 48 hours. Assessment and Plan (1) Pneumonia: Status: Acute Plan 57 year old man admitted with CAP requiring oxygen CAP leukocytosis resolved but remains hypoxic with ambulation continue Rocephin and azithromycin, started 10/18 still requiring supplemental oxygen, wean as tolerated possible component of pneumonitis, continue steroids blood culture negative to date Moderate persistent Asthma No exacerbation Albuterol as needed Diabetes mellitus type 2 with elevated blood sugar and Likely secondary to pneumonia Sliding scale, ADA diet hold glipizide, metformin Drug abuse No signs of withdrawal seen by Addiction medicine, resources provider continue baseline dose of methadone GERD Continue PPI Mental health Continue home medications Hyperlipidemia versus coronary artery disease.? Unspecified Unsure of diagnosis on aspirin, statin and beta-lilliana at home Will try to find other hospital records DVT prophylaxis- johannyx Attending Dr. Ho Full code continue hospitalization for treatment pneumonia requiring IV antibiotics Time Spent With Patient Time: Total time managing care of this patient today ____ minutes. Quality Stroke Does the patient have a stroke diagnosis?: No VTE Prior VTE?: No VTE Risk Level:: Medical - moderate - high VTE Device Contraindication: Treatment Not Indicated VTE Drug Contraindication: N/A - Med Ordered
[2022-10-20 16:08] LABS: Glucose, Whole Blood 344 mg/dL (60-115)
[2022-10-20] MEDS: Enoxaparin Sodium 40 MG/0.4 ML SYRINGE SUBCUT (17:36)
[2022-10-20 19:24] LABS: Glucose, Whole Blood 315 mg/dL (60-115)
[2022-10-20 19:31] VITALS: BP 150/75; PULSE 74; RESP 18; TEMP 36.4; O2SAT 93
[2022-10-20] MEDS: Atorvastatin Calcium 20 MG TABLET PO (20:49)
[2022-10-20] MEDS: QUEtiapine Fumarate 300 MG TABLET PO (20:49)
[2022-10-20] MEDS: Amitriptyline HCl 50 MG TABLET PO (20:49)
[2022-10-20] MEDS: Insulin Glargine,Hum.rec.anlog 100 UNIT/ML 10 ML VIAL 45 UNIT SUBCUT (20:50)
[2022-10-20] MEDS: diphenhydrAMINE HCL 25 MG CAPSULE PO (20:50)
[2022-10-21 03:41] VITALS: BP 136/75; PULSE 65; RESP 16; TEMP 36.1; O2SAT 93
[2022-10-21] MEDS: Omeprazole 20 MG CAPSULE.DR PO (05:51)
[2022-10-21 07:20] VITALS: BP 151/84; PULSE 68; RESP 18; TEMP 36.6; O2SAT 96
[2022-10-21 07:38] LABS: Glucose, Whole Blood 195 mg/dL (60-115)
[2022-10-21 07:44] VITALS: PULSE 84; RESP 16; O2SAT 95
[2022-10-21] MEDS: Fluticasone/Vilanterol 200/25 BLST.W.DEV 1 PUFF INHALE (07:44)
[2022-10-21] MEDS: Insulin Lispro 100 UNIT/ML 3 ML VIAL SUBCUT (08:02)
[2022-10-21] MEDS: 0.9 % Sodium Chloride Flush 3 ML SYRINGE IVFLUSH (08:02)
[2022-10-21] MEDS: Gabapentin 400 MG CAPSULE 800 MG PO (08:03)
[2022-10-21] MEDS: Fenofibrate 160 MG TABLET PO (08:03)
[2022-10-21] MEDS: Sertraline HCL 100 MG TABLET PO (08:03)
[2022-10-21] MEDS: predniSONE 20 MG TABLET 40 MG PO (08:03)
[2022-10-21] MEDS: guaiFENesin LA 600 MG TAB.ER.12H PO (08:03)
[2022-10-21] MEDS: carvediloL 12.5 MG TABLET PO (08:03)
[2022-10-21] MEDS: methADONE HCl 20 MG/2 ML ORAL.CONC 75 MG PO (08:04)
--- NOTE | 2022-10-21 08:22 | PC.NURSE ---
This nurse ambulated with patient in hallway while monitoring o2 saturation, patient remained at 96% room air upon exertion, Suzy WARD made aware.
--- NOTE | 2022-10-21 09:41 | PM.DS ---
DS: Providers Provider Date of Service: 10/21/22 Date of admission: 10/17/22 18:11 Date of discharge: 10/21/22 Primary care physician: MARIE Adorno Consults: 10/17/22 18:10 Addiction Medicine Routine Consulting Provider: Addiction Covering Reason for consultation: on methadone Has provider been notified: No Attending physician on discharge: Paco Ho Discharging clinician: Suzy Mauricio DS: Diagnosis Discharge Diagnosis (1) Pneumonia: Status: Acute DS: Summary Hospital Course Hospital Course: From H&P on the day of admission 57-year-old man presents to the ER with complaints of worsening shortness breath.? Patient reports over the last 2 days he has had a dry cough and shortness of breath.? He has also been using cocaine and head use multiple times last night.? His blood sugars have also been high especially over the last couple a days.? Denied chest pain, nausea, vomiting, diarrhea, fever, recent illness, sick contacts.? Chest x-ray in ER showed multifocal pneumonia in the right lung, no fever leukocytosis noted, normal lactic acid.? No hypoxia noted but oxygen saturation was 90-91%.? He was placed on 2-3 L of oxygen with improvement.? He reported being hungry during the interview and denied any shortness of breath.? He was going to been a dose of azithromycin, Rocephin, lorazepam, 2 L of IV fluids as well as insulin.? He will be admitted for further management and treatment of acute community-acquired. CAP Patient was treated with IV Rocephin and azithromycin. He remained hypoxic so steroids were added due to possibility of underlying pneumonitis given cocaine use and history of asthma. He has remained afebrile, leukocytosis resolved and he was able to be weaned off of supplemental oxygen and is able to ambulate without shortness of breath and without hypoxia. blood cultures have remained stable. he will be discharged home to complete course of steroids and antibiotics. Drug abuse No signs of withdrawal. seen by Addiction medicine, resources provided. was continued on baseline dose of methadone Time Spent with Patient Time attestation: Total time managing care of this patient today ____ minutes. Discharge coordination time: Greater than 30 minutes Quality: Safe Use of Opioids Does Pt have an Active Cancer Diagnosis on the Problem List?: No Quality: Stroke Does the patient have a stroke diagnosis?: No Physical Exam Vital Signs: Vital Signs: Last Vital Signs Temp 97.8 F 10/21/22 07:20 Pulse 84 10/21/22 07:44 Resp 16 10/21/22 07:44 BP 151/84 H 10/21/22 07:20 Pulse Ox 96 10/21/22 07:20 O2 Del Method Nasal Cannula 10/21/22 07:20 O2 Flow Rate 2 10/21/22 07:20 Oxygen Flow Rate 4 10/17/22 09:03 BMI result Body Mass Index 29.0 Const: General: cooperative, comfortable, no acute distress, alert and awake Nutritional Appearance: average body habitus Orientation/consciousness: patient oriented x3 Resp: Effort & Inspection: normal respiratory effort, able to speak in complete sentences, no respiratory distress and no use of accessory muscles Auscultation: clear to auscultation bilaterally Cardio: Rate: regular rate Heart sounds: S1 normal heart sound present and S2 normal heart sound present GI: Inspection: No distended Palpation (GI): Soft to palpation and nontender Neuro: General: patient oriented x3 and No CN's II-XI intact bilaterally Extrem: General: Yes no pedal edema DS: Data Data Completed and Pending Labs on day of discharge: Laboratory Results - last 24 hr 10/20/22 10/20/22 10/20/22 11:22 16:04 19:08 POC Glucose 205 H 344 H 315 H 10/21/22 07:23 POC Glucose 195 H Preliminary micro results at discharge 10/17/22 09:52 Blood Culture - Preliminary Blood - Venous No growth after 48 hours. 10/17/22 09:40 Blood Culture - Preliminary Blood - Venous No growth after 48 hours. Discharge Plan Discharge Anticipated Discharge Date/Time: 10/21/22 09:47 Patient Disposition: Home, Self-Care Discharge Diagnosis: pneumonia Referrals: [place],[facility] [Physician] - 1 Week Discharge Medications: New prednisone 20 mg Tablet 40 mg PO DAILY 5 Days Qty: 10 0RF guaifenesin [Mucinex] 600 mg Tablet Extended Release 12hr 600 mg PO BID 4 Days Qty: 8 0RF azithromycin 250 mg tablet 250 mg PO DAILY 4 Days Qty: 4 0RF cefuroxime axetil 500 mg tablet 500 mg PO BID 6 Days Qty: 12 0RF Continued fluticasone propion-salmeterol 500-50 mcg/dose blister with device 1 ea inhalation BID Qty: 60 6RF quetiapine 25 mg tablet 25 mg PO BID PRN (Reason: anxiety) metformin 500 mg tablet 500 mg PO BIDWM carvedilol 12.5 mg tablet 12.5 mg PO BID ipratropium-albuterol 0.5 mg-3 mg(2.5 mg base)/3 mL solution for nebulization 1 inhalation QID PRN (Reason: Shortness Of Breath) quetiapine 300 mg tablet 300 mg PO BEDTIME glipizide 10 mg tablet 10 mg PO BIDAC sertraline 100 mg tablet 100 mg PO DAILY hydroxyzine pamoate 50 mg capsule 50 mg PO TID PRN (Reason: Anxiety) aspirin 81 mg tablet,delayed release (DR/EC) 81 mg PO DAILY@1200 amitriptyline 50 mg tablet 50 mg PO BEDTIME simvastatin 40 mg tablet 40 mg PO QPM gabapentin 800 mg tablet 800 mg PO TID diphenhydramine HCl [Agustina-Dryl] 25 mg tablet 25 mg PO BEDTIME omeprazole 20 mg capsule,delayed release(DR/EC) 20 mg PO BID@0630,1630 albuterol sulfate [Ventolin HFA] 90 mcg/actuation HFA aerosol inhaler 2 puff INHALATION QID PRN (Reason: Shortness Of Breath) fluticasone propionate 50 mcg/actuation spray,suspension 2 spray intranasal DAILY acetaminophen [Mapap (acetaminophen)] 500 mg capsule 500 mg PO Q8H PRN (Reason: Pain (Scale Score 1-3)) loratadine 10 mg tablet 10 mg PO DAILY@1200 insulin aspart U-100 [Novolog FlexPen U-100 Insulin] 100 unit/mL (3 mL) insulin pen See Protocol subcut TIDA Protocol: Insulin Correction Scale Less than or equal to 110 ---- Give (units): 0 111 to 150 Give (units): 0 151 to 200 Give (units): 2 201 to 250 Give (units): 4 251 to 300 Give (units): 6 301 to 350 Give (units): 8 Greater than 350 Give (units): 10 Call MD if Blood Glucose > : 350 fenofibrate 160 mg tablet 160 mg PO DAILY insulin glargine [Lantus Solostar U-100 Insulin] 100 unit/mL (3 mL) insulin pen 45 unit subcut BEDTIME methadone [Methadone Intensol] 10 mg/mL Concentrate 75 mg PO DAILY Discharge Orders: Discharge Order (Routine); Ordered 10/21/22 Ordered By: Suzy Mauricio Activity on Discharge: As tolerated Stand Alone Forms: Patient Portal Discharge page Care Plan Goals: see below Health Concerns: pneumonia Plan of Treatment: complete course of antibiotics and steroids as prescribed recommend to avoid all recreational drugs call to schedule follow up appointment with PCP Assessment: see discharge summary
--- NOTE | 2022-10-21 10:07 | MHC.CM.PN ---
DP: PT HAS BEEN MEDICALLY CLEARED FOR DC HOME, NO SERVICES. HAS OWN RIDE HOME.
== END 2022-10-21 11:01 | disposition home or self-care (01) | DRG 195 ==
LOC: HO.ED 15:51 → HO.EDOVER 18:23 → HO.S3 23:43
PROVIDERS: Registered Nurse Emergency; Admitting Provider Nurse Practitioner Acute Care; Emergency Provider Emergency Medicine; PCP Registered Nurse; Visit Provider Physician Assistant Medical
DX: J18.9 Pneumonia, unspecified organism (principal); J45.40 Moderate persistent asthma, uncomplicated; E11.65 Type 2 diabetes mellitus with hyperglycemia; F41.9 Anxiety disorder, unspecified; F32.A Depression, unspecified; E78.5 Hyperlipidemia, unspecified; I25.10 Atherosclerotic heart disease of native coronary artery without angina pectoris; K21.9 Gastro-esophageal reflux disease without esophagitis; Z79.4 Long term (current) use of insulin; Z79.51 Long term (current) use of inhaled steroids; Z79.82 Long term (current) use of aspirin; Z79.84 Long term (current) use of oral hypoglycemic drugs; Z79.899 Other long term (current) drug therapy
CPT/HCPCS: 36415; 71045; 71275; 80048; 80053; 80307; 81001; 82947; 83036; 83605; 83690; 84484; 85025; 85027; 85379; 85610; 87040; 93005; 94640; 99285; J0456; J0696; J1650; J2060; Q9967

== ENCOUNTER → 2022-10-17 09:05 | Outpatient (BNV) | payer OTHER, SELFPAY | PROVIDERS: Emergency Provider Emergency Medicine; Visit Provider Internal Medicine Cardiovascular Disease | DX: R00.0 Tachycardia, unspecified (principal) | CPT/HCPCS: 93010 ==

== ENCOUNTER → 2022-10-17 18:11 | Outpatient (BNV) | payer OTHER, SELFPAY | PROVIDERS: Admitting Provider Nurse Practitioner Acute Care; Emergency Provider Emergency Medicine; Visit Provider Nurse Practitioner Acute Care | DX: J18.9 Pneumonia, unspecified organism (principal) | CPT/HCPCS: 99223; 99232; 99239; G0180 ==

== ENCOUNTER 2023-07-07 02:13 | Emergency (ER) | payer OTHER, SELFPAY ==
[2023-07-07 02:16] VITALS: BP 140/80; PULSE 102; O2SAT 98
[2023-07-07 02:20] VITALS: BP 119/64; PULSE 50; RESP 20; TEMP 36.6; O2SAT 99
[2023-07-07 02:22] VITALS: BMI 22.4
[2023-07-07] MEDS: LORazepam 1 MG TABLET 2 MG PO (03:17)
--- NOTE | 2023-07-07 03:23 | ED.ANXIETY ---
HPI - Anxiety General Chief Complaint: Anxiety Stated Complaint: ANXIETY ATTACK Time Seen by Provider: 07/07/23 02:27 Source: patient Mode of arrival: ambulatory Limitations: no limitations History of Present Illness HPI narrative: Patient history of anxiety woke up from sleep after a nightmare since then been twitching same in the past took Atarax without much relief patient is restless anxious on arrival Related Data Home Medications ?Medication ?Instructions ?Recorded ?Confirmed acetaminophen 500 mg capsule 500 mg PO Q8H PRN Pain (Scale 10/17/22 10/17/22 (Mapap (acetaminophen)) Score 1-3) albuterol sulfate 90 mcg/actuation 2 puff inhalation QID PRN 10/17/22 10/17/22 aerosol inhaler (Ventolin HFA) Shortness Of Breath amitriptyline 50 mg tablet 50 mg PO BEDTIME 10/17/22 10/17/22 aspirin 81 mg tablet,delayed 81 mg PO DAILY@1200 10/17/22 10/17/22 release carvedilol 12.5 mg tablet 12.5 mg PO BID 10/17/22 10/17/22 diphenhydramine HCl 25 mg tablet 25 mg PO BEDTIME 10/17/22 10/17/22 (Agustina-Dryl) fenofibrate 160 mg tablet 160 mg PO DAILY 10/17/22 10/17/22 fluticasone propionate 50 2 spray intranasal DAILY 10/17/22 10/17/22 mcg/actuation nasal spray,suspension gabapentin 800 mg tablet 800 mg PO TID 10/17/22 10/17/22 glipizide 10 mg tablet 10 mg PO BIDAC 10/17/22 10/17/22 hydroxyzine pamoate 50 mg capsule 50 mg PO TID PRN Anxiety 10/17/22 10/17/22 insulin aspart U-100 100 unit/mL See Protocol subcut TIDAC 10/17/22 10/17/22 (3 mL) subcutaneous pen (Novolog FlexPen U-100 Insulin aspart) insulin glargine 100 unit/mL (3 45 unit subcut BEDTIME 10/17/22 10/17/22 mL) subcutaneous pen (Lantus Solostar U-100 Insulin) ipratropium 0.5 mg-albuterol 3 mg 1 inhalation QID PRN Shortness Of 10/17/22 10/17/22 (2.5 mg base)/3 mL nebulization Breath soln loratadine 10 mg tablet 10 mg PO DAILY@1200 10/17/22 10/17/22 metformin 500 mg tablet 500 mg PO BIDWM 10/17/22 10/17/22 omeprazole 20 mg capsule,delayed 20 mg PO BID@0630,1630 10/17/22 10/17/22 release quetiapine 25 mg tablet 25 mg PO BID PRN anxiety 10/17/22 10/17/22 quetiapine 300 mg tablet 300 mg PO BEDTIME 10/17/22 10/17/22 sertraline 100 mg tablet 100 mg PO DAILY 10/17/22 10/17/22 simvastatin 40 mg tablet 40 mg PO QPM 10/17/22 10/17/22 methadone 10 mg/mL oral 75 mg PO DAILY 10/18/22 10/18/22 concentrate (Methadone Intensol) Previous Rx's ?Medication ?Instructions ?Recorded fluticasone 500 mcg-salmeterol 50 1 ea inhalation BID #60 caps 06/23/21 mcg/dose blistr powdr for inhalation azithromycin 250 mg tablet 250 mg PO DAILY 4 days #4 tabs 10/21/22 cefuroxime axetil 500 mg tablet 500 mg PO BID 6 days #12 tabs 10/21/22 guaifenesin 600 mg tablet, 600 mg PO BID 4 days #8 tabs 10/21/22 extended release 12 hr (Mucinex) prednisone 20 mg tablet 40 mg (2 x 20 mg) PO DAILY 5 days 10/21/22 #10 tabs Allergies Allergy/AdvReac Type Severity Reaction Status Date / Time bee pollen [BEE STINGS] Allergy Severe THROAT Verified 07/07/23 02:25 SWELLING raspberry [RASPBERRY] Allergy Severe UNKNOWN Verified 07/07/23 02:25 tadalafil [From CIALIS] Allergy Severe ANAPHYLAXIS Verified 07/07/23 02:25 wool Allergy Intermediate RASH Verified 07/07/23 02:25 Review of Systems Review of Systems: Yes all other systems are reviewed and are negative PMFSH Past Medical History Medical History Moderate persistent asthma Depression Anxiety GERD (gastroesophageal reflux disease) Diabetes Asthma Substance abuse Surgical History No pertinent past surgical history Family History Family History Father Diabetes mellitus Alcohol abuse Social History Social History Household Members: Unknown / Unable to assess Housing: Apartment Unable to assess alcohol history related to: Unable to respond and Unknown Patient Tobacco Use Status: Never used Tobacco Smoked in Last 30 Days: Yes Use of substances other than those prescribed or required for medical reasons: Yes Substance Use Type: Crack/Cocaine and Heroin Substance Use Frequency: Chronic Longstanding Last Used Substance: Days (ago) Any prior treatment program specific to substance use: Yes Advance Directives: No Advance Directives Information Provided: Yes service: No Physical Exam Vital Signs: Vital Signs: Last Vital Signs Temp 97.7 F 07/07/23 06:35 Pulse 107 H 07/07/23 06:35 Resp 14 07/07/23 06:35 BP 125/85 07/07/23 06:35 Pulse Ox 98 07/07/23 06:35 O2 Del Method Room Air 07/07/23 06:35 BMI result Body Mass Index 22.4 Const: Other: Appearance: Alert. Oriented X3. No acute distress. Anxious Eyes: PERRLA, No Nystagmus ENT: Pharynx normal. Oral Mucosa moist Neck: Normal inspection. Neck supple. CVS: Normal heart rate and rhythm. Pulses normal. Respiratory: No respiratory distress. Equal air entry bilateral, no wheezing/rales/rhonchi Abdomen: Soft and nontender. Bowel sounds are present, no mass palpable, no CVA tenderness Skin: Skin warm and dry. Normal skin color. Normal skin turgor. Extremities: No lower extremity edema. No calf tenderness Neuro: Oriented X 3. No motor deficit. No sensory deficit.No cerebellar signs , cranial nerves II-XII intact Medications Administered Discontinued Medications Generic Name Dose Route Start Last Admin Trade Name Freq PRN Reason Stop Dose Admin Lorazepam 2 mg 07/07/23 03:02 07/07/23 03:17 Lorazepam 1 Mg Tablet PO 07/07/23 03:03 2 mg ONCE ONE Administration Medical Decision Making Medical Decision Making MDM Narrative: Patient with anxiety will give Ativan to relax Discharge Plan Discharge Clinical Impression: Acute anxiety Patient Disposition: Home, Self-Care Instructions: Anxiety (ED) Additional Instructions: Take your medications as prescribed and follow with PCP/psychiatrist Prescriptions: No Action fluticasone propion-salmeterol 500-50 mcg/dose blister with device 1 ea inhalation BID Qty: 60 6RF quetiapine 25 mg tablet 25 mg PO BID PRN (Reason: anxiety) metformin 500 mg tablet 500 mg PO BIDWM carvedilol 12.5 mg tablet 12.5 mg PO BID ipratropium-albuterol 0.5 mg-3 mg(2.5 mg base)/3 mL solution for nebulization 1 inhalation QID PRN (Reason: Shortness Of Breath) quetiapine 300 mg tablet 300 mg PO BEDTIME glipizide 10 mg tablet 10 mg PO BIDAC sertraline 100 mg tablet 100 mg PO DAILY hydroxyzine pamoate 50 mg capsule 50 mg PO TID PRN (Reason: Anxiety) aspirin 81 mg tablet,delayed release (DR/EC) 81 mg PO DAILY@1200 amitriptyline 50 mg tablet 50 mg PO BEDTIME simvastatin 40 mg tablet 40 mg PO QPM gabapentin 800 mg tablet 800 mg PO TID diphenhydramine HCl [Agustina-Dryl] 25 mg tablet 25 mg PO BEDTIME omeprazole 20 mg capsule,delayed release(DR/EC) 20 mg PO BID@0630,1630 albuterol sulfate [Ventolin HFA] 90 mcg/actuation HFA aerosol inhaler 2 puff INHALATION QID PRN (Reason: Shortness Of Breath) fluticasone propionate 50 mcg/actuation spray,suspension 2 spray intranasal DAILY acetaminophen [Mapap (acetaminophen)] 500 mg capsule 500 mg PO Q8H PRN (Reason: Pain (Scale Score 1-3)) loratadine 10 mg tablet 10 mg PO DAILY@1200 insulin aspart U-100 [Novolog FlexPen U-100 Insulin] 100 unit/mL (3 mL) insulin pen See Protocol subcut T[facility] Protocol: Insulin Correction Scale Less than or equal to 110 ---- Give (units): 0 111 to 150 Give (units): 0 151 to 200 Give (units): 2 201 to 250 Give (units): 4 251 to 300 Give (units): 6 301 to 350 Give (units): 8 Greater than 350 Give (units): 10 Call MD if Blood Glucose > : 350 fenofibrate 160 mg tablet 160 mg PO DAILY insulin glargine [Lantus Solostar U-100 Insulin] 100 unit/mL (3 mL) insulin pen 45 unit subcut BEDTIME methadone [Methadone Intensol] 10 mg/mL Concentrate 75 mg PO DAILY prednisone 20 mg Tablet 40 mg PO DAILY 5 Days Qty: 10 0RF guaifenesin [Mucinex] 600 mg Tablet Extended Release 12hr 600 mg PO BID 4 Days Qty: 8 0RF azithromycin 250 mg tablet 250 mg PO DAILY 4 Days Qty: 4 0RF cefuroxime axetil 500 mg tablet 500 mg PO BID 6 Days Qty: 12 0RF Interventions: ED Discharge Assessment Last Done: 07/07/23 06:35 Print Language: Hong Konger
[2023-07-07 04:00] VITALS: BP 115/71; PULSE 87; RESP 16; TEMP 36.7; O2SAT 96
[2023-07-07 06:12] VITALS: BP 118/69; PULSE 82; RESP 16; TEMP 36.7; O2SAT 97
[2023-07-07 06:35] VITALS: BP 125/85; PULSE 107; RESP 14; TEMP 36.5; O2SAT 98
== END 2023-07-07 07:34 | disposition home or self-care (01) ==
PROVIDERS: Emergency Provider Internal Medicine
DX: F41.9 Anxiety disorder, unspecified (principal); E11.9 Type 2 diabetes mellitus without complications; J45.40 Moderate persistent asthma, uncomplicated
CPT/HCPCS: 99283; 99284

== ENCOUNTER 2023-08-09 11:51 | Inpatient (IN) | payer OTHER, SELFPAY ==
--- NOTE | ~2023-08-09 | XR_ITS ---
EXAMINATION: XR LEFT ANKLE XR LEFT FOOT CLINICAL INFORMATION: Distal cellulitis. COMPARISON: None available. TECHNIQUE: AP, lateral, and mortise views of the left foot were obtained. AP and oblique views of the left ankle were obtained. FINDINGS: Marked soft tissue swelling of the second toe. There is absence of the distal tuft of the second digit distal phalanx. Joint space narrowing of the second digit PIP joint. There is subtle sclerosis of the second digit proximal phalanx. Small plantar calcaneal spur. Ankle mortise is maintained. Talar dome is intact. XR/XR ankle LT min 3V IMPRESSION: Absence of the distal tuft of the second digit distal phalanx. Joint space narrowing of the second digit PIP joint. There is subtle sclerosis of the second digit proximal phalanx. These changes may be related to localized infection. Consider MRI with and without contrast to exclude osteomyelitis.
--- NOTE | ~2023-08-09 | CT_ITS ---
EXAMINATION: CT LEFT FOOT WITH CONTRAST CLINICAL INFORMATION: Infected diabetic toe, rule out osteomyelitis. COMPARISON: X-ray 06/06/2023. TECHNIQUE: CT imaging of the left foot. Sagittal and coronal reconstructions. 85 mL Omnipaque 350. DLP: 154 mGy-cm FINDINGS: Marked circumferential soft tissue swelling of the second toe, with hazy density and stranding in the subcutaneous tissues, skin thickening. Findings suggesting cellulitis. No organized fluid collection or peripherally enhancing abscess is identified. The second toe distal phalanx is small in caliber, with dysmorphic appearance, absence of the distal tuft. There is superior subluxation of the distal phalanx with respect to the middle phalanx at the DIP joint. Findings of indeterminate age. Osteomyelitis, septic arthritis of the 2nd PIP joint Mild 2nd PIP joint arthritis. Subchondral cysts in the proximal aspect 2nd proximal phalanx. In the remainder of the bones, no CT evidence of osteomyelitis is identified. Moderate 2nd TMT arthritis. Plantar calcaneal spur. Dorsal foot soft tissue swelling and subcutaneous edema. Limited evaluation of the tendons on CT. No appreciable tenosynovitis is identified. CT/CT foot LT w IV con IMPRESSION: Circumferential soft tissue swelling of the second toe with findings suggestive of cellulitis. No organized fluid collection or peripherally enhancing abscess is identified. Abnormality of the second toe distal phalanx, with small caliber, absence of the distal tuft. There is superior subluxation of the distal phalanx with respect to the proximal phalanx at the PIP joint. Findings of indeterminate age. Osteomyelitis cannot be excluded. Infection involving the PIP joint cannot be excluded. Consider MRI without and with contrast for further evaluation. The report will be called to the ordering clinician by a [facility] [employer].
--- NOTE | ~2023-08-09 | XR_ITS ---
EXAMINATION: XR LEFT ANKLE XR LEFT FOOT CLINICAL INFORMATION: Distal cellulitis. COMPARISON: None available. TECHNIQUE: AP, lateral, and mortise views of the left foot were obtained. AP and oblique views of the left ankle were obtained. FINDINGS: Marked soft tissue swelling of the second toe. There is absence of the distal tuft of the second digit distal phalanx. Joint space narrowing of the second digit PIP joint. There is subtle sclerosis of the second digit proximal phalanx. Small plantar calcaneal spur. Ankle mortise is maintained. Talar dome is intact. XR/XR foot LT min 3V IMPRESSION: Absence of the distal tuft of the second digit distal phalanx. Joint space narrowing of the second digit PIP joint. There is subtle sclerosis of the second digit proximal phalanx. These changes may be related to localized infection. Consider MRI with and without contrast to exclude osteomyelitis.
[2023-08-09 12:45] VITALS: BP 140/82; PULSE 90; RESP 16; TEMP 37; O2SAT 96; BMI 29.1
--- NOTE | 2023-08-09 12:47 | ED.GENADULT ---
HPI - General Adult General Chief complaint: Wound/Laceration Stated complaint: Left Leg Toe Pain Time Seen by Provider: 08/09/23 13:49 History of Present Illness HPI narrative: The patient is a 58-year-old male who was a type 2 diabetic. He has had problems with his left 2nd toe for several weeks. It is chronically irritated. It is mildly chronically swollen. He says over the last few weeks he feels he has had a blood blister on the toe. He also says that the nail of the toe fell off a couple of weeks ago. However over the last 24 hours he has developed worsening swelling in his also developed redness on the dorsum of the foot which is new. He went to his methadone clinic today. He then went across the street to the urgent care portion of the [facility]. At the urgent care he was found to be significantly hyperglycemic. He was placed in an Uber taxi and was sent to the emergency room. Related Data Home Medications ?Medication ?Instructions ?Recorded ?Confirmed acetaminophen 500 mg capsule 500 mg PO Q8H PRN Pain (Scale 10/17/22 10/17/22 (Mapap (acetaminophen)) Score 1-3) albuterol sulfate 90 mcg/actuation 2 puff inhalation QID PRN 10/17/22 10/17/22 aerosol inhaler (Ventolin HFA) Shortness Of Breath amitriptyline 50 mg tablet 50 mg PO BEDTIME 10/17/22 10/17/22 aspirin 81 mg tablet,delayed 81 mg PO DAILY@1200 10/17/22 10/17/22 release carvedilol 12.5 mg tablet 12.5 mg PO BID 10/17/22 10/17/22 diphenhydramine HCl 25 mg tablet 25 mg PO BEDTIME 10/17/22 10/17/22 (Agustina-Dryl) fenofibrate 160 mg tablet 160 mg PO DAILY 10/17/22 10/17/22 fluticasone propionate 50 2 spray intranasal DAILY 10/17/22 10/17/22 mcg/actuation nasal spray,suspension gabapentin 800 mg tablet 800 mg PO TID 10/17/22 10/17/22 glipizide 10 mg tablet 10 mg PO BIDAC 10/17/22 10/17/22 hydroxyzine pamoate 50 mg capsule 50 mg PO TID PRN Anxiety 10/17/22 10/17/22 insulin aspart U-100 100 unit/mL See Protocol subcut TIDAC 10/17/22 10/17/22 (3 mL) subcutaneous pen (Novolog FlexPen U-100 Insulin aspart) insulin glargine 100 unit/mL (3 45 unit subcut BEDTIME 10/17/22 10/17/22 mL) subcutaneous pen (Lantus Solostar U-100 Insulin) ipratropium 0.5 mg-albuterol 3 mg 1 inhalation QID PRN Shortness Of 10/17/22 10/17/22 (2.5 mg base)/3 mL nebulization Breath soln loratadine 10 mg tablet 10 mg PO DAILY@1200 10/17/22 10/17/22 metformin 500 mg tablet 500 mg PO BIDWM 10/17/22 10/17/22 omeprazole 20 mg capsule,delayed 20 mg PO BID@0630,1630 10/17/22 10/17/22 release quetiapine 25 mg tablet 25 mg PO BID PRN anxiety 10/17/22 10/17/22 quetiapine 300 mg tablet 300 mg PO BEDTIME 10/17/22 10/17/22 sertraline 100 mg tablet 100 mg PO DAILY 10/17/22 10/17/22 simvastatin 40 mg tablet 40 mg PO QPM 10/17/22 10/17/22 methadone 10 mg/mL oral 75 mg PO DAILY 10/18/22 10/18/22 concentrate (Methadone Intensol) Previous Rx's ?Medication ?Instructions ?Recorded fluticasone 500 mcg-salmeterol 50 1 ea inhalation BID #60 caps 06/23/21 mcg/dose blistr powdr for inhalation azithromycin 250 mg tablet 250 mg PO DAILY 4 days #4 tabs 10/21/22 cefuroxime axetil 500 mg tablet 500 mg PO BID 6 days #12 tabs 10/21/22 guaifenesin 600 mg tablet, 600 mg PO BID 4 days #8 tabs 10/21/22 extended release 12 hr (Mucinex) prednisone 20 mg tablet 40 mg (2 x 20 mg) PO DAILY 5 days 10/21/22 #10 tabs Allergies Allergy/AdvReac Type Severity Reaction Status Date / Time bee pollen [BEE STINGS] Allergy Severe THROAT Verified 08/09/23 12:49 SWELLING raspberry [RASPBERRY] Allergy Severe UNKNOWN Verified 08/09/23 12:49 tadalafil [From CIALIS] Allergy Severe ANAPHYLAXIS Verified 08/09/23 12:49 wool Allergy Intermediate RASH Verified 08/09/23 12:49 Review of Systems Review of Systems: Yes all other systems are reviewed and are negative [facility] Past Medical History Medical History Moderate persistent asthma Depression Anxiety GERD (gastroesophageal reflux disease) Diabetes Asthma Substance abuse Surgical History No pertinent past surgical history Family History Family History Father Diabetes mellitus Alcohol abuse Social History Social History Household Members: Unknown / Unable to assess Housing: Apartment Unable to assess alcohol history related to: Unable to respond and Unknown Patient Tobacco Use Status: Never used Tobacco Substance Use Type: Crack/Cocaine and Heroin Advance Directives: No service: No Physical Exam ED Vital Signs: Vital Signs - 24 hr 08/09/23 12:45 08/09/23 14:36 Temperature 98.6 F 97.9 F Pulse Rate 90 70 Respiratory Rate 16 20 Blood Pressure 140/82 H 113/52 L Pulse Oximetry 96 95 Oxygen Delivery Method Room Air Room Air BMI result Body Mass Index 29.1 Const Other: The patient is awake and alert. He is pleasant and cooperative. He has obvious redness to the dorsum of the left foot but does not seem obviously acutely ill otherwise. HENMD Other: Face is symmetrical. Mucous membranes moist. Eyes Other: Pupils are round equal, conjunctivae clear Neck Other: No JVD Resp Effort & Inspection: normal respiratory effort Auscultation: clear to auscultation bilaterally Cardio Rate: regular rate Rhythm: regular rhythm Heart sounds: S1 normal heart sound present and S2 normal heart sound present GI Other: Abdomen is soft and nontender Skin Other: The skin of the patient's left foot is abnormal. The left 2nd toe is quite swollen. There is erythema and warmth of the dorsum of the left foot. Neuro Other: The patient is awake and alert with a normal mental status. Cranial nerves are intact. He has some diminished sensation in the feet Extrem Other: The patient has an excellent dorsalis pedis pulse in the left foot. There is swelling to the left foot. There is erythema to the dorsum of the left foot. There is swelling to the 2nd toe. Course Course Course Narrative: This is a Rapid Medical Examination (RME) performed by Leigh Ann Maya PA-C in triage. Full HPI, ROS, assessment and treatment plan per primary provider in the Main ED. 58 yo male hx of uncontrolled diabetes (PO and insulin) here w/ blistering/swelling/erythema to toes of left foot x2 weeks, now traveling proximally beginning this morning. now notes blistering/ swelling to 2nd toe on left foot, woke up with erythema spreading proximately along dorsal aspect of foot. also admits to recently twisting left ankle. BS recently 400. Denies IVDU. significant swelling noted to left 2nd toe, area of erythema to dorsal foot. foot warm, tender to touch. Plan: labs, xrs ordered Medications Administered Generic Name Dose Route Start Last Admin Trade Name Freq PRN Reason Stop Dose Admin Sodium Chloride 1,000 mls @ 999 mls/hr 08/09/23 14:15 08/09/23 14:43 Ns IV 08/09/23 15:15 999 mls/hr .Q1H1M HAVEN Administration Discontinued Medications Generic Name Dose Route Start Last Admin Trade Name Freq PRN Reason Stop Dose Admin Piperacillin Sod/Tazobactam 100 mls @ 200 mls/hr 08/09/23 14:14 08/09/23 14:42 Sod 4.5 gm/ Sodium Chloride IV 08/09/23 14:43 200 mls/hr ONCE ONE Administration Medical Decision Making Medical Decision Making [facility] Narrative: The patient is a type 2 diabetic who presents with a diabetic foot infection which seems to be centered around his left 2nd toe. He has some cellulitis on the dorsum of the foot. He is hemodynamically stable. X-ray is suspicious for possible early osteomyelitis of the 2nd toe. He has a very elevated C-reactive protein. Blood cultures were obtained and he was started on IV piperacillin/tazobactam and vancomycin. He was given IV fluids to address his hyperglycemia and will be admitted to the hospitalist service. Lab Data 08/09/23 13:02 08/09/23 13:02 Labs: Lab Results 08/09/23 08/09/23 08/09/23 Range/Units 13:02 13:56 14:12 WBC 10.6 (4.8-10.8) X10*3/uL RBC 4.23 L (4.60-5.80) X10*6/uL Hgb 11.7 L (14.0-18.0) g/dl Hct 34.4 L (42.0-52.0) % MCV 81.3 (80.0-98.0) fL MCH 27.7 (27.0-33.0) pg MCHC 34.0 (31.0-36.0) g/dl RDW 12.2 (11.0-16.0) % Plt Count 294 D (160-400) X10*3/uL MPV 11.2 (9.4-12.4) fL Immature Gran % (Auto) 0.4 (0.0-0.4) % Neut % (Auto) 77.2 H (45-73) % Lymph % (Auto) 11.6 L (20-40) % [place] % (Auto) 9.2 (2-11) % Eos % (Auto) 1.1 (0-4) % Baso % (Auto) 0.5 (0-2) % Lymph # (Auto) 1.2 (1.2-4.9) X10*3/uL [place] # (Auto) 1.0 (0.1-1.2) X10*3/uL Eos # (Auto) 0.1 (0.0-0.4) X10*3/uL Baso # (Auto) 0.1 (0.0-0.2) X10*3/uL Abs Immat Gran (auto) 0.04 H (0.00-0.03) X10*3/uL Absolute Neuts (auto) 8.2 (2.0-8.3) x10*3/uL Absolute Nucleated RBC 0.000 (0.0-0.012) X10*3/uL Nucleated RBC % (auto) 0.0 (0.0-0.2) /100WBC VBG pH (7.32-7.43) VBG pCO2 mmHg VBG pO2 mmHg VBG HCO3 (22-26) mmol/L VBG O2 Saturation % VBG Base Excess mmol/L Sodium 127 L (135-145) mmol/L Potassium 5.0 (3.3-5.1) mmol/L Chloride 92 L (96-108) mmol/L Carbon Dioxide 26 (22-29) mmol/L Anion Gap 14 (12-20) BUN 16 (9-16) mg/dL Creatinine 1.23 (0.5-1.4) mg/dL Estim Creat Clear Calc 78.2 Estimated GFR > 60 Random Glucose 578 H* (60-115) mg/dL Osmolality 300 (281-305) mosm/kg Lactic Acid 0.9 (0.5-2.0) mmol/L Calcium 10.0 D (8.4-10.2) mg/dL Magnesium 1.7 1.7 (1.6-2.6) mg/dL Total Bilirubin 0.4 (0.0-1.0) mg/dL AST 8 (5-37) U/L ALT 9 (0-40) U/L Alkaline Phosphatase 83 (39-117) U/L C-Reactive Protein 19.66 H (< or = 0.50) mg/dL Total Protein 7.8 (6.5-8.0) g/dL Albumin 3.6 (3.5-5.0) g/dL Beta-Hydroxybutyrate 0.04 (0.02-0.27) mmol/L Urine Color Yellow Urine Appearance Clear Urine pH 6.5 (5.0-9.0) Ur Specific [place] >= 1.030 H (1.005-1.025) Urine Protein Negative (Neg-Trace) mg/dL Urine Glucose (UA) >=1000 H (Negative) mg/dL Urine Ketones Negative (Negative) mg/dL Urine Blood Negative (Negative) Urine Nitrite Negative (Negative) Ur Leukocyte Esterase Negative (Negative) Urine RBC 0-2 (0-2) /HPF Urine WBC 0-5 (0-5) /HPF Ur Squamous Epith Cells 0-2 (0-2) /HPF Urine Bacteria None Seen (None Seen) Hyaline Casts 0-2 (0-2) /LPF 08/09/23 Range/Units 14:14 WBC (4.8-10.8) X10*3/uL RBC (4.60-5.80) X10*6/uL Hgb (14.0-18.0) g/dl Hct (42.0-52.0) % MCV (80.0-98.0) fL MCH (27.0-33.0) pg MCHC (31.0-36.0) g/dl RDW (11.0-16.0) % Plt Count (160-400) X10*3/uL MPV (9.4-12.4) fL Immature Gran % (Auto) (0.0-0.4) % Neut % (Auto) (45-73) % Lymph % (Auto) (20-40) % [place] % (Auto) (2-11) % Eos % (Auto) (0-4) % Baso % (Auto) (0-2) % Lymph # (Auto) (1.2-4.9) X10*3/uL [place] # (Auto) (0.1-1.2) X10*3/uL Eos # (Auto) (0.0-0.4) X10*3/uL Baso # (Auto) (0.0-0.2) X10*3/uL Abs Immat Gran (auto) (0.00-0.03) X10*3/uL Absolute Neuts (auto) (2.0-8.3) x10*3/uL Absolute Nucleated RBC (0.0-0.012) X10*3/uL Nucleated RBC % (auto) (0.0-0.2) /100WBC VBG pH 7.48 H (7.32-7.43) VBG pCO2 32 mmHg VBG pO2 104 mmHg VBG HCO3 24 (22-26) mmol/L VBG O2 Saturation 99.0 % VBG Base Excess 1.9 mmol/L Sodium (135-145) mmol/L Potassium (3.3-5.1) mmol/L Chloride (96-108) mmol/L Carbon Dioxide (22-29) mmol/L Anion Gap (12-20) BUN (9-16) mg/dL Creatinine (0.5-1.4) mg/dL Estim Creat Clear Calc Estimated GFR Random Glucose (60-115) mg/dL Osmolality (281-305) mosm/kg Lactic Acid (0.5-2.0) mmol/L Calcium (8.4-10.2) mg/dL Magnesium (1.6-2.6) mg/dL Total Bilirubin (0.0-1.0) mg/dL AST (5-37) U/L ALT (0-40) U/L Alkaline Phosphatase (39-117) U/L C-Reactive Protein (< or = 0.50) mg/dL Total Protein (6.5-8.0) g/dL Albumin (3.5-5.0) g/dL Beta-Hydroxybutyrate (0.02-0.27) mmol/L Urine Color Urine Appearance Urine pH (5.0-9.0) Ur Specific [place] (1.005-1.025) Urine Protein (Neg-Trace) mg/dL Urine Glucose (UA) (Negative) mg/dL Urine Ketones (Negative) mg/dL Urine Blood (Negative) Urine Nitrite (Negative) Ur Leukocyte Esterase (Negative) Urine RBC (0-2) /HPF Urine WBC (0-5) /HPF Ur Squamous Epith Cells (0-2) /HPF Urine Bacteria (None Seen) Hyaline Casts (0-2) /LPF Discharge Plan Discharge Clinical Impression: Diabetic infection of left foot, Hyperglycemia Patient Disposition: Admitted As Inpatient Print Language: Amharic
--- OUTSIDE RECORDS SUMMARY | 2023-08-09 13:04 | XMS_ITS | Patient Health Record ---
Author Organization [facility] Address [address], [place] [id number] Support Name Relationship Address Phone Mckinley Berry Guarantor Unknown [phone] ALLERGIES Allergen (clinical drug ingredient) Drug/Non Drug Allergy documented on EMR Reaction Allergy Type Onset Date Status Seasonal (uncoded) Unknown Allergy A ctive REASON FOR REFERRAL No Information SOCIAL HISTORY Sex Assigned At : Social History Observation Description Sex Assigned At Unknown PLAN OF TREATMENT No Information Insurance Providers Payer Name Payer Address Payer Phone Subscriber Number Group Number Insured Name Patient Relationship to Insured Coverage Start Date Coverage End Date [employer] [address] [place] [phone] [id number] Mckinley Berry Self - patient is the insured MEDICAL (GENERAL) HISTORY Medical History History ICD Code Smoker Asthma Diabetes HBP High Cholesterol Hospitalization History Reason Date(Month/Year) History of 2 Heart Attacks not recently
[2023-08-09 13:07] LABS: MANUAL DIFF FLAG NO
[2023-08-09 13:11] LABS: Basophils Absolute Auto 0.1 X10*3/uL (0.0-0.2); Basophils Percent Auto 0.5 % (0-2); Eosinophils Absolute Auto 0.1 X10*3/uL (0.0-0.4); Eosinophils Percent Auto 1.1 % (0-4); Hematocrit 34.4 % (42.0-52.0); Hemoglobin 11.7 g/dl (14.0-18.0); Imm Gran Abs Auto 0.04 X10*3/uL (0.00-0.03); Imm Gran Pct Auto 0.4 % (0.0-0.4); Lymphocytes Absolute Auto 1.2 X10*3/uL (1.2-4.9); Lymphocytes Percent Auto 11.6 % (20-40); Mean Corpuscular Hemoglobin 27.7 pg (27.0-33.0); Mean Corpuscular Volume 81.3 fL (80.0-98.0); Mean Platelet Volume 11.2 fL (9.4-12.4); Monocytes Percent Auto 9.2 % (2-11); Neutrophils Absolute Auto 8.2 x10*3/uL (2.0-8.3); Neutrophils Percent Auto 77.2 % (45-73); Platelet Count 294 X10*3/uL (160-400); Red Blood Count 4.23 X10*6/uL (4.60-5.80); Red Cell Distribution Width 12.2 % (11.0-16.0); White Blood Count 10.6 X10*3/uL (4.8-10.8)
[2023-08-09 13:36] LABS: Alanine Aminotransferase 9 U/L (0-40); Albumin Level 3.6 g/dL (3.5-5.0); Alkaline Phosphatase 83 U/L (39-117); Anion Gap 14 (12-20); Aspartate Amino Transferase 8 U/L (5-37); Bilirubin Total 0.4 mg/dL (0.0-1.0); Blood Urea Nitrogen 16 mg/dL (9-16); Carbon Dioxide 26 mmol/L (22-29); Chloride 92 mmol/L (96-108); Creatinine Clr Calc Pharmacy 78.2; Estimated Glomerular Filt Rate > 60; Glucose Random 578 mg/dL (60-115); Magnesium 1.7 mg/dL (1.6-2.6); Sodium 127 mmol/L (135-145); Total Protein 7.8 g/dL (6.5-8.0)
[2023-08-09 14:04] LABS: Appearance Urine Clear; Bacteria Urine None Seen (None Seen); Color Urine Yellow; Glucose Urine UA >=1000 mg/dL (Negative); Hyaline Casts Urine 0-2 /LPF (0-2); Leukocyte Esterase Urine Negative (Negative); Nitrite Urine Negative (Negative); PH 6.5 (5.0-9.0); RBC Urine 0-2 /HPF (0-2); Specific Gravity - Urine >= 1.030 (1.005-1.025); Squamous Epithelial Cell Urine 0-2 /HPF (0-2); UMIC TRIGGER UACC YES; Urine Blood Negative (Negative); Urine Ketones Negative (Negative); Urine Protein Negative (Neg-Trace); WBC Urine 0-5 /HPF (0-5)
[2023-08-09 14:19] LABS: Venous Blood Gas Refer to POC result
[2023-08-09 14:22] LABS: VBG Base Excess 1.9 mmol/L; VBG HCO3 24 mmol/L (22-26); VBG pCO2 32 mmHg; VBG pH 7.48 (7.32-7.43); VBG pO2 104 mmHg
[2023-08-09 14:30] LABS: Beta-Hydroxybutyrate 0.04 mmol/L (0.02-0.27)
[2023-08-09 14:33] LABS: Lactic Acid 0.9 mmol/L (0.5-2.0)
[2023-08-09 14:36] VITALS: BP 113/52; PULSE 70; RESP 20; TEMP 36.6; O2SAT 95
[2023-08-09 14:37] LABS: Osmolality, Serum 300 mosm/kg (281-305)
[2023-08-09 14:39] LABS: C Reactive Protein 19.66 mg/dL (< or = 0.50); Magnesium 1.7 mg/dL (1.6-2.6)
[2023-08-09] MEDS: Piperacillin Sodium/Tazobactam 4.5 GM in 0.9 % Sodium Chloride 100 ML IV (14:42)
[2023-08-09] MEDS: 0.9 % Sodium Chloride 1,000 ML 999 ML IV ×2 (14:43→18:44)
--- NOTE | 2023-08-09 14:49 | PC.NURSE ---
PT IS A/O X 4 NO SOB/KAROLINA NOTED SPEAKS IN FULL SENTENCES. PT LEFT 2ND TOE IS EXTREMELY SWOLLEN/SLIGHT PORTIA/PAIN/TENDER TO TOUCH. THE BACK OF THE TOE HAS A CRACK AT THE JOINT. NO DRAINAGE NOTED. PT STATES THAT HIS TOE HAD A SLIGHT CRACK MONTHS AGO AND HE WAS USING OTC ABT WITHOUT ANY RESULT. PT STATES THAT HE HAS STUBBED HIS TOE (L 2ND TOE BECAUSE HIS DIABETIC SHOE IS WORN AND HE NEEDS A NEW ONE. PT AWARE OF PLAN OF CARE. WILL CONTINUE TO MONITOR
--- NOTE | 2023-08-09 14:53 | PM.IMHP ---
History of Present Illness Date of Service: 08/09/23 Chief Complaint: infected toe 58-year-old man with diabetes here with left second toe pain, swelling and redness that has been progressed very rapidly the last 5 days or so, however he notes that he had a crack in the toe about a month ago and may have had iritation from his shoe. He denies fever or chills. Xray of the foot show Absence of the distal tuft of the second digit distal phalanx. Joint space narrowing of the second digit PIP joint. There is subtle sclerosis of the second digit proximal phalanx. These changes may be related to localized infection. He has been given IV Zosyn and IV vancomycin. Additionally his blood sugar is found to be 578 however no acidosis or evidence of DKA; he claims that he is compliant with medications. Hemoglobin A1C is > 12, he has been given IV fluid boluses and repeat sugar is 368. Review of Systems Review of Systems: Gen: no fever Resp: no sob, no cough CV: no chest, no MARR, no leg edema GI: No n/v, no abd pain Neuro: No confusion [facility] Medical History Moderate persistent asthma Depression Anxiety GERD (gastroesophageal reflux disease) Diabetes Asthma Substance abuse Family History Father Diabetes mellitus Alcohol abuse Surgical History No pertinent past surgical history Social History Household Members: Unknown / Unable to assess Housing: Apartment Unable to assess alcohol history related to: Unable to respond and Unknown Patient Tobacco Use Status: Never used Tobacco Smoked in Last 30 Days: Yes Substance Use Type: Crack/Cocaine Advance Directives: No Nutrition Risks: No Nutritional Risk service: No Meds Allergies Allergy/AdvReac Type Severity Reaction Status Date / Time bee pollen [BEE STINGS] Allergy Severe THROAT Verified 08/09/23 12:49 SWELLING raspberry [RASPBERRY] Allergy Severe UNKNOWN Verified 08/09/23 12:49 tadalafil [From CIALIS] Allergy Severe ANAPHYLAXIS Verified 08/09/23 12:49 wool Allergy Intermediate RASH Verified 08/09/23 12:49 Active Medications: Current Medications Sodium Chloride (Ns) 1,000 mls @ 999 mls/hr IV .Q1H1M HAVEN Stop: 08/09/23 15:15 Last Admin: 08/09/23 14:43 Dose: 999 mls/hr Vancomycin HCl (Vancomycin/Ns) 2,000 mg in 500 mls @ 250 mls/hr IV ONCE ONE Stop: 08/09/23 16:14 Home Medications ?Medication ?Instructions ?Recorded ?Confirmed ?Last Taken ?Type acetaminophen 500 mg capsule 500 mg PO Q8H PRN Pain (Scale 10/17/22 08/09/23 Unknown History (Mapap (acetaminophen)) Score 1-3) albuterol sulfate 90 mcg/actuation 2 puff inhalation QID PRN 10/17/22 08/09/23 Unknown History aerosol inhaler (Ventolin HFA) Shortness Of Breath amitriptyline 50 mg tablet 50 mg PO BEDTIME 10/17/22 08/09/23 08/08/23 History aspirin 81 mg tablet,delayed 81 mg PO DAILY@1200 10/17/22 08/09/23 08/09/23 History release carvedilol 12.5 mg tablet 12.5 mg PO BID 10/17/22 08/09/23 08/09/23 History fenofibrate 160 mg tablet 160 mg PO DAILY 10/17/22 08/09/23 08/09/23 History fluticasone propionate 50 2 spray intranasal DAILY 10/17/22 08/09/23 08/09/23 History mcg/actuation nasal spray,suspension gabapentin 800 mg tablet 800 mg PO TID 10/17/22 08/09/23 08/09/23 History glipizide 10 mg tablet 10 mg PO BIDAC 10/17/22 08/09/23 08/09/23 History hydroxyzine pamoate 50 mg capsule 50 mg PO TID PRN Anxiety 10/17/22 08/09/23 Unknown History insulin aspart U-100 100 unit/mL See Protocol subcut TIDAC 10/17/22 08/09/23 Unknown History (3 mL) subcutaneous pen (Novolog FlexPen U-100 Insulin aspart) insulin glargine 100 unit/mL (3 45 unit subcut BEDTIME 10/17/22 08/09/23 08/08/23 History mL) subcutaneous pen (Lantus Solostar U-100 Insulin) ipratropium 0.5 mg-albuterol 3 mg 3 ml inhalation QID PRN Shortness 10/17/22 08/09/23 Unknown History (2.5 mg base)/3 mL nebulization Of Breath soln loratadine 10 mg tablet 10 mg PO DAILY@1200 10/17/22 08/09/23 08/09/23 History metformin 500 mg tablet 500 mg PO BIDWM 10/17/22 08/09/23 08/09/23 History omeprazole 20 mg capsule,delayed 20 mg PO BID@0630,1630 10/17/22 08/09/23 08/09/23 History release quetiapine 25 mg tablet 25 mg PO BID PRN anxiety 10/17/22 08/09/23 Unknown History quetiapine 300 mg tablet 300 mg PO BEDTIME 10/17/22 08/09/23 08/08/23 History sertraline 100 mg tablet 100 mg PO DAILY 10/17/22 08/09/23 08/09/23 History simvastatin 40 mg tablet 40 mg PO QPM 10/17/22 08/09/23 08/08/23 History methadone 10 mg/mL oral 75 mg PO DAILY 10/18/22 08/10/23 08/09/23 History concentrate (Methadone Intensol) Physical Exam Vital Signs and Narrative: Vital Signs: Last Vital Signs Temp 97.9 F 08/09/23 14:36 Pulse 70 08/09/23 14:36 Resp 20 08/09/23 14:36 BP 113/52 L 08/09/23 14:36 Pulse Ox 95 08/09/23 14:36 O2 Del Method Room Air 08/09/23 14:36 BMI result Body Mass Index 29.1 Constitutional: Alert, in no distress, overweight. Mental Status: Oriented to person, place and time. Eyes: Pupils are equal, round and reactive to light. Ear, Nose and Throat: Oropharynx clear, mucous membranes moist. Ears and nose without eformities. Trachea midline. Respiratory: Clear to auscultation. No wheezing, rales or rhonchi. Cardiovascular: S1 S2 regular. No murmurs, rubs or gallops. Gastrointestinal: Abdomen soft, non-tender, non-distended. Normal bowel sounds.? Neurologic: Cranial nerves II-XII grossly intact. No focal neurological deficits. Moves all extremities spontaneously.? Skin: No rashes or lesions.? Musculoskeletal: No cyanosis or clubbing. Psychiatric: Normal mood and affect? Const: Other: Constitutional: Alert, in no distress, overweight. Mental Status: Oriented to person, place and time. Eyes: Pupils are equal, round and reactive to light. Ear, Nose and Throat: Oropharynx clear, mucous membranes moist. Ears and nose without eformities. Trachea midline. Respiratory: Clear to auscultation. No wheezing, rales or rhonchi. Cardiovascular: S1 S2 regular. No murmurs, rubs or gallops. Gastrointestinal: Abdomen soft, non-tender, non-distended. Normal bowel sounds.? Neurologic: Cranial nerves II-XII grossly intact. No focal neurological deficits. Moves all extremities spontaneously.? Skin: Musculoskeletal: No cyanosis or clubbing. Psychiatric: Normal mood and affect? Results Labs 08/09/23 13:02 08/10/23 09:15 Imaging Radiologist's Impressions: Impressions Ankle X-Ray 08/09/23 13:10 IMPRESSION: Absence of the distal tuft of the second digit distal phalanx. Joint space narrowing of the second digit PIP joint. There is subtle sclerosis of the second digit proximal phalanx. These changes may be related to localized infection. Consider MRI with and without contrast to exclude osteomyelitis. Foot X-Ray 08/09/23 13:10 IMPRESSION: Absence of the distal tuft of the second digit distal phalanx. Joint space narrowing of the second digit PIP joint. There is subtle sclerosis of the second digit proximal phalanx. These changes may be related to localized infection. Consider MRI with and without contrast to exclude osteomyelitis. Assessment and Plan (1) Diabetic infection of left foot: Status: Acute Plan 58/m with diabetes here with Diabetic foot ulcer, rule out acute osteomylitis -continue Vanco and Zosyn, -CT to further assess Uncontrolled Diabetic with hyperglycemia, AC > 12 -continue Lantus, Metformin and add sliding scale HypoNatremia--Pseudohyponatremia d/t high glucose Moderate persistent Asthma, no exacerbation. Bronchodilators PRN diabetic peripheral neuropathy--gabapentin Opioid use disorder--Methadone once verified GERD Continue PPI Mood disorders--continue home meds HLD-statin DVT prophylaxis--lovenox full code admission for at least 2 midnights to manage acute cellulitis/acute OM and uncontrolled diabetes Quality Stroke Does the patient have a stroke diagnosis?: No VTE Prior VTE?: No VTE Risk Level:: Medical - moderate - high VTE Device Contraindication: Treatment Not Indicated VTE Drug Contraindication: N/A - Med Ordered
[2023-08-09 16:03] LABS: Estimated Average Glucose 318 mg/dL; Hemoglobin A1c % 12.7 % (<6.0)
--- NOTE | 2023-08-09 16:09 | PHA.MEDREC ---
Pharmacy Consult ? Medication Reconciliation Pharmacy has completed the medication reconciliation. Spoke to patient and confirmed medication list. Patient was able to confirm most medications except for the doses for insulins (Novolog and Lantus) so I called [facility] pharmacy and confirmed the doses with them.
[2023-08-09] MEDS: Enoxaparin Sodium 40 MG/0.4 ML SYRINGE SUBCUT (16:12)
[2023-08-09] MEDS: 0.9 % Sodium Chloride Flush 3 ML SYRINGE IVFLUSH (16:13)
[2023-08-09] MEDS: 0.9 % Sodium Chloride 1,000 ML 999 ML IVCONT ×2 (16:14→18:44)
[2023-08-09] MEDS: vancomycin/NS 2,000 MG/500 ML PLAST..BAG 250 MG IV (16:14)
[2023-08-09 16:34] LABS: Glucose, Whole Blood 368 mg/dL (60-115)
[2023-08-09 18:37] LABS: Glucose, Whole Blood 264 mg/dL (60-115)
[2023-08-09] MEDS: Insulin Lispro 100 UNIT/ML 3 ML VIAL SUBCUT ×2 (18:41→21:24)
[2023-08-09] MEDS: metFORMIN HCl 500 MG TABLET PO (18:41)
[2023-08-09] MEDS: Omeprazole 20 MG CAPSULE.DR PO (18:41)
--- NOTE | 2023-08-09 19:05 | PC.NURSE ---
upon syrup shed supervisor performing belongings list on pt this rn made aware pt had lock box containing pt methdone. pt states to this rn does not have perez to lock box. upon speaking with pharmacy, house sup, and clinical coordinator lock box brought to pharmacy by this rn
[2023-08-09] MEDS: glipiZIDE 10 MG TABLET PO (19:21)
[2023-08-09 19:33] VITALS: BP 120/69; PULSE 73; RESP 17; TEMP 36.8; O2SAT 97
[2023-08-09] MEDS: Insulin Glargine,Hum.rec.anlog 100 UNIT/ML 10 ML VIAL 20 UNIT SUBCUT (21:00)
[2023-08-09] MEDS: Piperacillin Sodium/Tazobactam 3.375 GM in 0.9 % Sodium Chloride 50 ML IV (21:00)
[2023-08-09] MEDS: Gabapentin 400 MG CAPSULE 800 MG PO (21:01)
[2023-08-09] MEDS: carvediloL 12.5 MG TABLET PO (21:01)
[2023-08-09] MEDS: QUEtiapine Fumarate 300 MG TABLET PO (21:01)
[2023-08-09] MEDS: Atorvastatin Calcium 20 MG TABLET PO (21:01)
[2023-08-09 21:14] LABS: Glucose, Whole Blood 175 mg/dL (60-115)
--- NOTE | 2023-08-09 21:25 | PC.NURSE ---
this RN resumed care of pt at 0700. a&ox4. vss and up to date. pt currently verbalizing 7/10 discomfort in left foot. pt states sx feel like electricity running to his toes. medication administered per provider order. pharmacy called d/t missing medication - will administer when delivered. POC obtained/insulin administered per sliding scale. pt educated on use of call palma. no sob/wob noted. respirations even and unlabored. pt awaiting bed assignment at this time. plan of care ongoing. call palma placed within reach.
[2023-08-09] MEDS: Amitriptyline HCl 50 MG TABLET PO (21:37)
--- NOTE | 2023-08-09 21:37 | PC.NURSE ---
med delivered from pharmacy/administered.
--- NOTE | 2023-08-09 21:44 | PC.NURSE ---
pt verbalized to this RN that he forgot to show MD his 2nd toe on right foot when being assessed for his left foot. ulcer noted to right toe. necrotic/discoloration/tunneling/peeling skin noted. small necrotic spot noted under right pinky toe as well. pictures sent to dr. costello at this time.
[2023-08-10] VITALS (9 sets, daily range): BP systolic 102–157; BP diastolic 64–82; PULSE 74–88; RESP 16–20; TEMP 36–36.9; O2SAT 94–99
[2023-08-10] MEDS: 0.9 % Sodium Chloride Flush 3 ML SYRINGE IVFLUSH ×2 (00:39→17:15)
[2023-08-10] MEDS: Acetaminophen 325 MG TABLET 650 MG PO ×2 (00:46→19:35)
[2023-08-10] MEDS: Piperacillin Sodium/Tazobactam 3.375 GM in 0.9 % Sodium Chloride 50 ML IV ×4 (03:35→20:31)
[2023-08-10] MEDS: Omeprazole 20 MG CAPSULE.DR PO ×2 (06:35→17:33)
[2023-08-10] MEDS: vancomycin HCL 1,000 MG in 0.9 % Sodium Chloride 250 ML 270 MG IV (06:35)
[2023-08-10 07:10] LABS: Glucose, Whole Blood 74 mg/dL (60-115)
--- NOTE | 2023-08-10 07:31 | PC.NURSE ---
pt is alert and oriented, skin pwd, respirations even and unlabored, ls clear, pt's left second toe swollen/red and redness runs to the top of the foot, small open area on the top of the toe, positive pedal pulses, pain at 6/10, also right second has a small open wound as well. vs stable, pt set up with breakfast ghazala and eating-poc 74 this am
[2023-08-10] MEDS: Fluticasone/Vilanterol 200/25 BLST.W.DEV 1 PUFF INHALE (08:15)
[2023-08-10] MEDS: carvediloL 12.5 MG TABLET PO ×2 (08:26→19:35)
[2023-08-10] MEDS: Gabapentin 400 MG CAPSULE 800 MG PO ×3 (08:26→19:35)
[2023-08-10] MEDS: metFORMIN HCl 500 MG TABLET PO ×2 (08:26→17:33)
[2023-08-10] MEDS: Sertraline HCL 100 MG TABLET PO (08:27)
[2023-08-10] MEDS: oxyCODONE HCl Immed Release 5 MG TABLET PO ×3 (08:35→22:25)
[2023-08-10 08:51] LABS: Glucose, Whole Blood 151 mg/dL (60-115)
--- NOTE | 2023-08-10 09:13 | PC.NURSE ---
Methadone verified with [facility], faxed to pharmacy
[2023-08-10 09:41] LABS: Creatinine Clr Calc Pharmacy 118.7; Estimated Glomerular Filt Rate > 60
[2023-08-10] MEDS: Fenofibrate 160 MG TABLET PO (09:54)
[2023-08-10] MEDS: Fluticasone Propionate Nasal 16 GM SPRAY 2 SPRAY NOSTRIL-B (10:14)
[2023-08-10] MEDS: glipiZIDE 10 MG TABLET PO (10:14)
[2023-08-10 11:45] LABS: Glucose, Whole Blood 133 mg/dL (60-115)
[2023-08-10] MEDS: Loratadine 10 MG TABLET PO (12:04)
[2023-08-10] MEDS: Aspirin Enteric Coated 81 MG TABLET.DR PO (12:04)
--- NOTE | 2023-08-10 12:14 | HE.PHANOTE ---
RE METHADONE Patient receives 75 mg of methadone from [facility] [phone], last dose given 08/09/23
[2023-08-10] MEDS: methADONE HCl 20 MG/2 ML ORAL.CONC 75 MG PO (12:51)
--- NOTE | 2023-08-10 13:03 | P.PNIM_ITS ---
Subjective Subjective Date of Service: 08/10/23 Interval History: f/u on diabetic foot ulcer, concern for osteo has some pain in the foot Physical Exam 2 Vital Signs: Vital Signs: Last Vital Signs Temp 98.0 F 08/10/23 07:25 Pulse 76 08/10/23 12:50 Resp 18 08/10/23 12:50 BP 119/68 08/10/23 12:50 Pulse Ox 97 08/10/23 12:50 O2 Del Method Room Air 08/10/23 12:50 BMI result Body Mass Index 29.1 General: AO X 3, no acute distress Resp: CTA bilateral CVS: S1,S2,RRR GI: +BS, NT, no distention Skin:see pics from yesterday Neuro: motor grossly intact Psych: appropriate affect Objective Data Active Medications Acetaminophen (Acetaminophen 325 Mg Tablet) 650 mg PO Q6H PRN PRN Reason: Pain, Mild (Pain Scale 1-3) Last Admin: 08/10/23 00:46 Dose: 650 mg Documented By: DENNIS Acetaminophen (Acetaminophen Supp 650 Mg Supp.Rect) 650 mg [place] Q6H PRN PRN Reason: Pain, Mild (Pain Scale 1-3) Albuterol Sulfate (Albuterol Sulfate 90 Mcg 8 Gm Inhaler) 2 puff INHALE QID PRN PRN Reason: Shortness Of Breath Albuterol/Ipratropium (Albuterol/Iprat 2.5/0.5mg 3 Ml Ampul.Neb) 3 ml INHALE QID PRN PRN Reason: Shortness Of Breath Amitriptyline HCl (Amitriptyline Hcl 50 Mg Tablet) 50 mg PO BEDTIME [facility] Last Admin: 08/09/23 21:37 Dose: 50 mg Documented By: KARL Aspirin (Aspirin Enteric Coated 81 Mg Tablet.) 81 mg PO DAILY@1200 [facility] Last Admin: 08/10/23 12:04 Dose: 81 mg Documented By: KHUSHBU Atorvastatin Calcium (Atorvastatin Calcium 20 Mg Tablet) 20 mg PO BEDTIME [facility] Last Admin: 08/09/23 21:01 Dose: 20 mg Documented By: KARL Carvedilol (Carvedilol 12.5 Mg Tablet) 12.5 mg PO BID [facility]; Protocol Last Admin: 08/10/23 08:26 Dose: 12.5 mg Documented By: KHUSHBU Enoxaparin Sodium (Enoxaparin Sodium 40 Mg/0.4 Ml Syringe) 40 mg SUBCUT Q24H [facility] Last Admin: 08/09/23 16:12 Dose: 40 mg Documented By: STEPHANY Fenofibrate (Fenofibrate 160 Mg Tablet) 160 mg PO DAILY [facility] Last Admin: 08/10/23 09:54 Dose: 160 mg Documented By: KHUSHBU Fluticasone Propionate (Fluticasone Propionate Nasal 16 Gm [place]) 2 spray NOSTRIL-B DAILY [facility] Last Admin: 08/10/23 10:14 Dose: 2 spray Documented By: KHUSHBU Fluticasone/Vilanterol (Fluticasone/Vilanterol 200/25 Blst.W.Dev) 1 puff INHALE RDAILY [facility] Last Admin: 08/10/23 08:15 Dose: 1 puff Documented By: MIKAELA Gabapentin (Gabapentin 400 Mg Capsule) 800 mg PO TID [facility] Last Admin: 08/10/23 08:26 Dose: 800 mg Documented By: KHUSHBU Glipizide (Glipizide 10 Mg Tablet) 10 mg PO BIDAC [facility] Last Admin: 08/10/23 10:14 Dose: 10 mg Documented By: KHUSHBU Glucose (Glucose Gel 15 Gm Gel..Gram.) 15 gm PO Q15M PRN; Protocol PRN Reason: per Hypoglycemia Standing Ord. Hydroxyzine HCl (Hydroxyzine Hcl 50 Mg Tablet) 50 mg PO TID PRN PRN Reason: Anxiety Dextrose (D10) 250 mls @ 750 mls/hr IV Q15M PRN; Protocol PRN Reason: per Hypoglycemia Standing Ord. Piperacillin Sod/Tazobactam (Sod 3.375 gm/ Sodium Chloride) 50 mls @ 100 mls/hr IV Q6H [facility] Last Infusion: 08/10/23 09:24 Dose: Infused Documented By: KHUSHBU Vancomycin HCl 1,000 mg/ (Sodium Chloride) 270 mls @ 270 mls/hr IV Q12H [facility] Last Infusion: 08/10/23 08:43 Dose: Infused Documented By: KHUSHBU Insulin Glargine (Insulin Glargine,Hum.Rec.Anlog 100 Unit/Ml 10 Ml Vial) 20 unit SUBCUT BEDTIME [facility] Last Admin: 08/09/23 21:00 Dose: 20 unit Documented By: KARL Insulin Human Lispro (Insulin Lispro 100 Unit/Ml 3 Ml Vial) 0 unit SUBCUT QIDACHS [facility]; Protocol Last Admin: 08/10/23 07:28 Dose: Not Given Documented By: KHUSHBU Non-Admin Reason: poc 74 Loratadine (Loratadine 10 Mg Tablet) 10 mg PO DAILY@1200 [facility] Last Admin: 08/10/23 12:04 Dose: 10 mg Documented By: KHUSHBU Magnesium Hydroxide (Milk Of Magnesia 30 Ml Oral.Susp) 30 ml PO DAILY PRN PRN Reason: Constipation Melatonin (Melatonin 3 Mg Tablet) 6 mg PO BEDTIME PRN PRN Reason: Insomnia Metformin HCl (Metformin Hcl 500 Mg Tablet) 500 mg PO BIDWM [facility] Last Admin: 08/10/23 08:26 Dose: 500 mg Documented By: KHUSHBU Methadone HCl (Methadone Hcl 20 Mg/2 Ml Oral.Conc) 75 mg PO DAILY [facility] Last Admin: 08/10/23 12:51 Dose: 75 mg Documented By: KHUSHBU Omeprazole (Omeprazole 20 Mg Capsule.Dr) 20 mg PO BID@0630,1630 [facility] Last Admin: 08/10/23 06:35 Dose: 20 mg Documented By: DENNIS Oxycodone HCl (Oxycodone Hcl Immed Release 5 Mg Tablet) 5 mg PO Q6H PRN PRN Reason: Pain, Severe (Pain Scale 7-10) Last Admin: 08/10/23 08:35 Dose: 5 mg Documented By: KHUSHBU Pharmacy Consult (Consult Rx Vancomycin Dosing) 1 each MISCELLANE DAILY PRN PRN Reason: Consult order Quetiapine Fumarate (Quetiapine Fumarate 25 Mg Tablet) 25 mg PO BID PRN PRN Reason: anxiety Quetiapine Fumarate (Quetiapine Fumarate 300 Mg Tablet) 300 mg PO BEDTIME [facility] Last Admin: 08/09/23 21:01 Dose: 300 mg Documented By: KARL Sertraline HCl (Sertraline Hcl 100 Mg Tablet) 100 mg PO DAILY [facility] Last Admin: 08/10/23 08:27 Dose: 100 mg Documented By: KHUSHBU Sodium Chloride (0.9 % Sodium Chloride Flush 3 Ml Syringe) 3 ml IVFLUSH QSHIFT [facility] Last Admin: 08/10/23 07:30 Dose: Not Given Documented By: KHUSHBU Non-Admin Reason: IV Running Labs 08/09/23 13:02 08/10/23 09:15 Labs: Laboratory Results - last 24 hr 08/09/23 08/09/23 08/09/23 13:02 13:07 13:56 MCV 81.3 MCH 27.7 MCHC 34.0 RDW 12.2 Plt Count 294 D MPV 11.2 Immature Gran % (Auto) 0.4 Neut % (Auto) 77.2 H Lymph % (Auto) 11.6 L [place] % (Auto) 9.2 Eos % (Auto) 1.1 Baso % (Auto) 0.5 Lymph # (Auto) 1.2 [place] # (Auto) 1.0 Eos # (Auto) 0.1 Baso # (Auto) 0.1 Abs Immat Gran (auto) 0.04 H Absolute Neuts (auto) 8.2 Absolute Nucleated RBC 0.000 Nucleated RBC % (auto) 0.0 Hold Purple Top VBG pH VBG pCO2 VBG pO2 VBG HCO3 VBG O2 Saturation VBG Base Excess Anion Gap 14 Estim Creat Clear Calc 78.2 Estimated GFR > 60 POC Glucose Random Glucose 578 H* Estimat Average Glucose 318 Hemoglobin A1c % 12.7 H Osmolality Lactic Acid Calcium 10.0 D Magnesium 1.7 Total Bilirubin 0.4 AST 8 ALT 9 Alkaline Phosphatase 83 C-Reactive Protein Total Protein 7.8 Albumin 3.6 Beta-Hydroxybutyrate 0.04 Urine Color Yellow Urine Appearance Clear Urine pH 6.5 Ur Specific [place] >= 1.030 H Urine Protein Negative Urine Glucose (UA) >=1000 H Urine Ketones Negative Urine Blood Negative Urine Nitrite Negative Ur Leukocyte Esterase Negative Urine RBC 0-2 Urine WBC 0-5 Ur Squamous Epith Cells 0-2 Urine Bacteria None Seen Hyaline Casts 0-2 08/09/23 08/09/23 08/09/23 14:12 14:14 16:31 MCV MCH MCHC RDW Plt Count MPV Immature Gran % (Auto) Neut % (Auto) Lymph % (Auto) [place] % (Auto) Eos % (Auto) Baso % (Auto) Lymph # (Auto) [place] # (Auto) Eos # (Auto) Baso # (Auto) Abs Immat Gran (auto) Absolute Neuts (auto) Absolute Nucleated RBC Nucleated RBC % (auto) Hold Purple Top VBG pH 7.48 H VBG pCO2 32 VBG pO2 104 VBG HCO3 24 VBG O2 Saturation 99.0 VBG Base Excess 1.9 Anion Gap Estim Creat Clear Calc Estimated GFR POC Glucose 368 H* Random Glucose Estimat Average Glucose Hemoglobin A1c % Osmolality 300 Lactic Acid 0.9 Calcium Magnesium 1.7 Total Bilirubin AST ALT Alkaline Phosphatase C-Reactive Protein 19.66 H Total Protein Albumin Beta-Hydroxybutyrate Urine Color Urine Appearance Urine pH Ur Specific [place] Urine Protein Urine Glucose (UA) Urine Ketones Urine Blood Urine Nitrite Ur Leukocyte Esterase Urine RBC Urine WBC Ur Squamous Epith Cells Urine Bacteria Hyaline Casts 08/09/23 08/09/23 08/10/23 18:34 21:11 07:07 MCV MCH MCHC RDW Plt Count MPV Immature Gran % (Auto) Neut % (Auto) Lymph % (Auto) [place] % (Auto) Eos % (Auto) Baso % (Auto) Lymph # (Auto) [place] # (Auto) Eos # (Auto) Baso # (Auto) Abs Immat Gran (auto) Absolute Neuts (auto) Absolute Nucleated RBC Nucleated RBC % (auto) Hold Purple Top VBG pH VBG pCO2 VBG pO2 VBG HCO3 VBG O2 Saturation VBG Base Excess Anion Gap Estim Creat Clear Calc Estimated GFR POC Glucose 264 H 175 H 74 Random Glucose Estimat Average Glucose Hemoglobin A1c % Osmolality Lactic Acid Calcium Magnesium Total Bilirubin AST ALT Alkaline Phosphatase C-Reactive Protein Total Protein Albumin Beta-Hydroxybutyrate Urine Color Urine Appearance Urine pH Ur Specific [place] Urine Protein Urine Glucose (UA) Urine Ketones Urine Blood Urine Nitrite Ur Leukocyte Esterase Urine RBC Urine WBC Ur Squamous Epith Cells Urine Bacteria Hyaline Casts 08/10/23 08/10/23 08/10/23 08:47 09:15 11:40 MCV MCH MCHC RDW Plt Count MPV Immature Gran % (Auto) Neut % (Auto) Lymph % (Auto) [place] % (Auto) Eos % (Auto) Baso % (Auto) Lymph # (Auto) [place] # (Auto) Eos # (Auto) Baso # (Auto) Abs Immat Gran (auto) Absolute Neuts (auto) Absolute Nucleated RBC Nucleated RBC % (auto) Hold Purple Top SEE NOTE VBG pH VBG pCO2 VBG pO2 VBG HCO3 VBG O2 Saturation VBG Base Excess Anion Gap Estim Creat Clear Calc 118.7 Estimated GFR > 60 POC Glucose 151 H 133 H Random Glucose Estimat Average Glucose Hemoglobin A1c % Osmolality Lactic Acid Calcium Magnesium Total Bilirubin AST ALT Alkaline Phosphatase C-Reactive Protein Total Protein Albumin Beta-Hydroxybutyrate Urine Color Urine Appearance Urine pH Ur Specific [place] Urine Protein Urine Glucose (UA) Urine Ketones Urine Blood Urine Nitrite Ur Leukocyte Esterase Urine RBC Urine WBC Ur Squamous Epith Cells Urine Bacteria Hyaline Casts Assessment and Plan (1) Hyperglycemia: Status: Acute (2) Diabetic infection of left foot: Status: Acute Plan 58/m with diabetes here with Diabetic foot ulcer, rule out acute osteomylitis -continue Vanco and Zosyn, -CT to further assess -vascular consult Uncontrolled Diabetic with hyperglycemia, AC > 12, likely non compliant with med -continue Lantus, Metformin and sliding scale HypoNatremia--Pseudohyponatremia d/t high glucose Moderate persistent Asthma, no exacerbation. Bronchodilators PRN diabetic peripheral neuropathy--gabapentin Opioid use disorder--Methadone GERD Continue PPI Mood disorders--continue home meds HLD-statin DVT prophylaxis--lovenox need for inpt: diabetic foot ulcer, ruling out osteo, currently on IV Abx, further work up Quality Stroke Does the patient have a stroke diagnosis?: No VTE Prior VTE?: No VTE Risk Level:: Medical - moderate - high VTE Device Contraindication: Treatment Not Indicated VTE Drug Contraindication: N/A - Med Ordered
--- NOTE | 2023-08-10 13:17 | MHC.CM.PN ---
Addendum entered by Lo Cruz RN 08/10/23 13:19: If services are needed patient prefers [facility] Original Note: [facility]. Patient lives in a home w/ his mother. Functionally independent. Has a cane that he uses PRN for weakness/pain. PCP @ [facility] HCP on file and verified DP: Goal is home self care, may need shuttle transportation. CM will continue to follow.
[2023-08-10 13:24] LABS: Glucose, Whole Blood 83 mg/dL (60-115)
[2023-08-10 13:36] LABS: Anion Gap 14 (12-20)
[2023-08-10 13:47] LABS: Blood Urea Nitrogen 13 mg/dL (9-16); Calcium 8.8 mg/dL (8.4-10.2); Carbon Dioxide 21 mmol/L (22-29); Chloride 102 mmol/L (96-108); Glucose Random 177 mg/dL (60-115); Potassium 4.2 mmol/L (3.3-5.1); Sodium 133 mmol/L (135-145)
[2023-08-10 14:49] LABS: Glucose, Whole Blood 104 mg/dL (60-115)
[2023-08-10] MEDS: Enoxaparin Sodium 40 MG/0.4 ML SYRINGE SUBCUT (15:25)
[2023-08-10 16:43] LABS: Vancomycin Random 11.1 mcg/mL (15-20)
--- NOTE | 2023-08-10 17:01 | HE.PHANOTE ---
VANCO Dose increased from 1000mg Q12h to 1250mg Q12H per subtherapeutic random vanco level. Next trough to be drawn 08/10 @1600. New predicted AUC 474, predicted trough 14.6.
[2023-08-10 17:19] LABS: Glucose, Whole Blood 136 mg/dL (60-115)
[2023-08-10] MEDS: vancomycin HCL 1,250 MG in 0.9 % Sodium Chloride 250 ML 166.67 MG IV (17:34)
[2023-08-10] MEDS: Atorvastatin Calcium 20 MG TABLET PO (19:34)
[2023-08-10] MEDS: QUEtiapine Fumarate 300 MG TABLET PO (19:35)
[2023-08-10] MEDS: Amitriptyline HCl 50 MG TABLET PO (19:35)
[2023-08-10 20:09] LABS: Glucose, Whole Blood 93 mg/dL (60-115)
--- NOTE | 2023-08-10 20:20 | PC.NURSE ---
evening blood sugar 93, md ok'd to give 20 units lantus
[2023-08-10] MEDS: Insulin Glargine,Hum.rec.anlog 100 UNIT/ML 10 ML VIAL 20 UNIT SUBCUT (20:31)
[2023-08-11] VITALS (7 sets, daily range): BP systolic 128–163; BP diastolic 73–90; PULSE 75–95; RESP 16–18; TEMP 36.1–36.6; O2SAT 95–96
[2023-08-11] MEDS: 0.9 % Sodium Chloride Flush 3 ML SYRINGE IVFLUSH ×3 (00:55→21:14)
[2023-08-11] MEDS: Piperacillin Sodium/Tazobactam 3.375 GM in 0.9 % Sodium Chloride 50 ML IV ×4 (03:33→21:09)
[2023-08-11] MEDS: Omeprazole 20 MG CAPSULE.DR PO ×2 (06:20→16:28)
[2023-08-11] MEDS: vancomycin HCL 1,250 MG in 0.9 % Sodium Chloride 250 ML 166.67 MG IV ×2 (06:20→17:47)
[2023-08-11 07:21] LABS: Estimated Glomerular Filt Rate > 60
--- NOTE | 2023-08-11 07:43 | PC.NURSE ---
Pt to receive CT with IV contrast, Metformin held this morning and per windows server support technician will need to be held 48 hours post IV contrast injection, MD Dr Vázquez made aware.
[2023-08-11] MEDS: Acetaminophen 325 MG TABLET 650 MG PO (07:49)
[2023-08-11] MEDS: Fluticasone/Vilanterol 200/25 BLST.W.DEV 1 PUFF INHALE (07:51)
[2023-08-11 07:53] LABS: Glucose, Whole Blood 171 mg/dL (60-115)
[2023-08-11] MEDS: methADONE HCl 20 MG/2 ML ORAL.CONC 75 MG PO (08:42)
[2023-08-11] MEDS: Gabapentin 400 MG CAPSULE 800 MG PO ×3 (08:42→21:02)
[2023-08-11] MEDS: carvediloL 12.5 MG TABLET PO ×2 (08:42→21:01)
[2023-08-11] MEDS: Fenofibrate 160 MG TABLET PO (08:42)
[2023-08-11] MEDS: Sertraline HCL 100 MG TABLET PO (08:42)
--- NOTE | 2023-08-11 09:31 | HO.PM.IMPN ---
Subjective Subjective Date of Service: 08/11/23 Interval History: f/u on diabetic foot ulcer, concern for osteo No new issues, but overall doesn't feel good Physical Exam Vital Signs: Vital Signs: Last Vital Signs Temp 96.9 F 08/11/23 07:56 Pulse 95 08/11/23 08:42 Resp 18 08/11/23 07:56 BP 144/79 H 08/11/23 08:42 Pulse Ox 96 08/11/23 07:56 O2 Del Method Room Air 08/11/23 07:56 BMI result Body Mass Index 29.1 Objective Data Active Medications Acetaminophen (Acetaminophen 325 Mg Tablet) 650 mg PO Q6H PRN PRN Reason: Pain, Mild (Pain Scale 1-3) Last Admin: 08/11/23 07:49 Dose: 650 mg Documented By: ZAKIYA Acetaminophen (Acetaminophen Supp 650 Mg Supp.Rect) 650 mg [place] Q6H PRN PRN Reason: Pain, Mild (Pain Scale 1-3) Albuterol Sulfate (Albuterol Sulfate 90 Mcg 8 Gm Inhaler) 2 puff INHALE QID PRN PRN Reason: Shortness Of Breath Albuterol/Ipratropium (Albuterol/Iprat 2.5/0.5mg 3 Ml Ampul.Neb) 3 ml INHALE QID PRN PRN Reason: Shortness Of Breath Amitriptyline HCl (Amitriptyline Hcl 50 Mg Tablet) 50 mg PO BEDTIME [facility] Last Admin: 08/10/23 19:35 Dose: 50 mg Documented By: BYRON Aspirin (Aspirin Enteric Coated 81 Mg Tablet.) 81 mg PO DAILY@1200 [facility] Last Admin: 08/10/23 12:04 Dose: 81 mg Documented By: KHUSHBU Atorvastatin Calcium (Atorvastatin Calcium 20 Mg Tablet) 20 mg PO BEDTIME [facility] Last Admin: 08/10/23 19:34 Dose: 20 mg Documented By: BYRON Carvedilol (Carvedilol 12.5 Mg Tablet) 12.5 mg PO BID [facility]; Protocol Last Admin: 08/11/23 08:42 Dose: 12.5 mg Documented By: ZAKIYA Enoxaparin Sodium (Enoxaparin Sodium 40 Mg/0.4 Ml Syringe) 40 mg SUBCUT Q24H [facility] Last Admin: 08/10/23 15:25 Dose: 40 mg Documented By: GENA Fenofibrate (Fenofibrate 160 Mg Tablet) 160 mg PO DAILY [facility] Last Admin: 08/11/23 08:42 Dose: 160 mg Documented By: ZAKIYA Fluticasone Propionate (Fluticasone Propionate Nasal 16 Gm [place]) 2 spray NOSTRIL-B DAILY [facility] Last Admin: 08/11/23 08:54 Dose: Not Given Documented By: ZAKIYA Non-Admin Reason: Med Not Available Fluticasone/Vilanterol (Fluticasone/Vilanterol 200/25 Blst.W.Dev) 1 puff INHALE RDAILY [facility] Last Admin: 08/11/23 07:51 Dose: 1 puff Documented By: ANY Gabapentin (Gabapentin 400 Mg Capsule) 800 mg PO TID [facility] Last Admin: 08/11/23 08:42 Dose: 800 mg Documented By: ZAKIYA Glucose (Glucose Gel 15 Gm Gel..Gram.) 15 gm PO Q15M PRN; Protocol PRN Reason: per Hypoglycemia Standing Ord. Hydroxyzine HCl (Hydroxyzine Hcl 50 Mg Tablet) 50 mg PO TID PRN PRN Reason: Anxiety Dextrose (D10) 250 mls @ 750 mls/hr IV Q15M PRN; Protocol PRN Reason: per Hypoglycemia Standing Ord. Piperacillin Sod/Tazobactam (Sod 3.375 gm/ Sodium Chloride) 50 mls @ 100 mls/hr IV Q6H [facility] Last Admin: 08/11/23 08:43 Dose: 100 mls/hr Documented By: ZAKIYA Vancomycin HCl 1,250 mg/ (Sodium Chloride) 250 mls @ 166.667 mls/hr IV Q12H [facility] Last Infusion: 08/11/23 08:55 Dose: Infused Documented By: ZAKIYA Insulin Glargine (Insulin Glargine,Hum.Rec.Anlog 100 Unit/Ml 10 Ml Vial) 20 unit SUBCUT BEDTIME [facility] Last Admin: 08/10/23 20:31 Dose: 20 unit Documented By: BYRON Insulin Human Lispro (Insulin Lispro 100 Unit/Ml 3 Ml Vial) 0 unit SUBCUT QIDACHS [facility]; Protocol Last Admin: 08/11/23 07:47 Dose: Not Given Documented By: ZAKIYA Non-Admin Reason: breakfast held Loratadine (Loratadine 10 Mg Tablet) 10 mg PO DAILY@1200 [facility] Last Admin: 08/10/23 12:04 Dose: 10 mg Documented By: KHUSHBU Magnesium Hydroxide (Milk Of Magnesia 30 Ml Oral.Susp) 30 ml PO DAILY PRN PRN Reason: Constipation Melatonin (Melatonin 3 Mg Tablet) 6 mg PO BEDTIME PRN PRN Reason: Insomnia Metformin HCl (Metformin Hcl 500 Mg Tablet) 500 mg PO BIDWM [facility] Last Admin: 08/11/23 07:45 Dose: Not Given Documented By: ZAKIYA Non-Admin Reason: Physician Held Med Methadone HCl (Methadone Hcl 20 Mg/2 Ml Oral.Conc) 75 mg PO DAILY [facility] Last Admin: 08/11/23 08:42 Dose: 75 mg Documented By: ZAKIYA Omeprazole (Omeprazole 20 Mg Capsule.Dr) 20 mg PO BID@0630,1630 [facility] Last Admin: 08/11/23 06:20 Dose: 20 mg Documented By: RICH Oxycodone HCl (Oxycodone Hcl Immed Release 5 Mg Tablet) 5 mg PO Q6H PRN PRN Reason: Pain, Severe (Pain Scale 7-10) Last Admin: 08/10/23 22:25 Dose: 5 mg Documented By: BYRON Pharmacy Consult (Consult Rx Vancomycin Dosing) 1 each MISCELLANE DAILY PRN PRN Reason: Consult order Quetiapine Fumarate (Quetiapine Fumarate 25 Mg Tablet) 25 mg PO BID PRN PRN Reason: anxiety Quetiapine Fumarate (Quetiapine Fumarate 300 Mg Tablet) 300 mg PO BEDTIME [facility] Last Admin: 08/10/23 19:35 Dose: 300 mg Documented By: BYRON Sertraline HCl (Sertraline Hcl 100 Mg Tablet) 100 mg PO DAILY [facility] Last Admin: 08/11/23 08:42 Dose: 100 mg Documented By: ZAKIYA Sodium Chloride (0.9 % Sodium Chloride Flush 3 Ml Syringe) 3 ml IVFLUSH QSHIFT [facility] Last Admin: 08/11/23 07:37 Dose: Not Given Documented By: ZAKIYA Non-Admin Reason: IV Running Labs 08/09/23 13:02 08/11/23 05:34 Labs: Laboratory Results - last 24 hr 08/10/23 08/10/23 08/10/23 09:15 11:40 13:20 Anion Gap 14 Estim Creat Clear Calc 118.7 Estimated GFR > 60 POC Glucose 133 H 83 Random Glucose 177 H Calcium 8.8 D Random Vancomycin 08/10/23 08/10/23 08/10/23 14:45 16:16 17:15 Anion Gap Estim Creat Clear Calc Estimated GFR POC Glucose 104 136 H Random Glucose Calcium Random Vancomycin 11.1 L 08/10/23 08/11/23 08/11/23 20:02 05:34 07:27 Anion Gap Estim Creat Clear Calc 89.0 Estimated GFR > 60 POC Glucose 93 171 H Random Glucose Calcium Random Vancomycin Microbiology Microbiology Results: Microbiology 08/09/23 14:15 Blood Culture - Preliminary Blood - Venous No growth after 24 hours. 08/09/23 14:12 Blood Culture - Preliminary Blood - Venous No growth after 24 hours. Assessment and Plan (1) Hyperglycemia: Status: Acute (2) Diabetic infection of left foot: Status: Acute Plan 58/m with diabetes here with Diabetic foot ulcer, rule out acute osteomylitis -continue Vanco and Zosyn, -CT to further assess -vascular consult and ID consults Uncontrolled Diabetic with hyperglycemia, AC > 12, likely non compliant with med as very good control here -continue Lantus, Metformin and sliding scale, hold glipizide HypONatremia--Pseudohyponatremia d/t high glucose, resolved Moderate persistent Asthma, no exacerbation. Bronchodilators PRN diabetic peripheral neuropathy--gabapentin Opioid use disorder--Methadone GERD Continue PPI Mood disorders--continue home meds HLD-statin DVT prophylaxis--lovenox need for inpt: diabetic foot ulcer, ruling out osteo, currently on IV Abx, further work up Quality Stroke Does the patient have a stroke diagnosis?: No VTE Prior VTE?: No VTE Risk Level:: Medical - moderate - high VTE Device Contraindication: Treatment Not Indicated VTE Drug Contraindication: N/A - Med Ordered
[2023-08-11] MEDS: iohexoL 350 MG/ML 100 ML INFUS..BTL IV (10:22)
--- NOTE | 2023-08-11 11:01 | PM.CNGS ---
History of Present Illness Consult details Consult date: 08/11/23 Reason for consult: wound care Narrative: Very pleasant 58-year-old diabetic gentleman came to the hospital with toe pain is more left 2nd toe but he has nonhealing ulcers of the left 2nd and right 2nd toe. He he has been a poorly controlled diabetic. He hemoglobin A1c is greater than 12 and he has been admitted for treatment. He now presents to us for vascular evaluation Review of Systems Review of Systems: Yes all other systems are reviewed and are negative Constitutional: Constitutional: Reports no additional constitutional complaints ENT: Reports Normal hearing present Cardiovascular: Cardiovascular: Denies chest pain, Denies chest pain at rest, Denies chest pain with activity and Denies pedal edema Respiratory: Respiratory: Denies cough Gastrointestinal: Gastrointestinal: Denies abdominal pain Musculoskeletal: Musculoskeletal: Denies abnormal gait, Denies muscle cramps and Denies radiating pain into limb Integumentary/Breasts: Skin/Breast: Denies skin ulcer and Denies wounds Neurologic: Reports Normal hearing present and Denies abnormal gait Psychiatric: Psychiatric: Reports no additional psychiatric complaints PMFSH Past Medical History Medical History Moderate persistent asthma Depression Anxiety GERD (gastroesophageal reflux disease) Diabetes Asthma Substance abuse Family History Family History Father Diabetes mellitus Alcohol abuse Surgical History Surgical History No pertinent past surgical history Social History Social History Household Members: Family Housing: House Do you presently have visiting nurse or other home services: No Unable to assess alcohol history related to: Unable to respond and Unknown Patient Tobacco Use Status: Never used Tobacco Substance Use Type: Marijuana service: No Meds Allergies Allergy/AdvReac Type Severity Reaction Status Date / Time bee pollen [BEE STINGS] Allergy Severe THROAT Verified 08/09/23 12:49 SWELLING raspberry [RASPBERRY] Allergy Severe UNKNOWN Verified 08/09/23 12:49 tadalafil [From CIALIS] Allergy Severe ANAPHYLAXIS Verified 08/09/23 12:49 wool Allergy Intermediate RASH Verified 08/09/23 12:49 Active Medications: Current Medications Acetaminophen (Acetaminophen 325 Mg Tablet) 650 mg PO Q6H PRN PRN Reason: Pain, Mild (Pain Scale 1-3) Last Admin: 08/11/23 07:49 Dose: 650 mg Acetaminophen (Acetaminophen Supp 650 Mg Supp.Rect) 650 mg IA Q6H PRN PRN Reason: Pain, Mild (Pain Scale 1-3) Albuterol Sulfate (Albuterol Sulfate 90 Mcg 8 Gm Inhaler) 2 puff INHALE QID PRN PRN Reason: Shortness Of Breath Albuterol/Ipratropium (Albuterol/Iprat 2.5/0.5mg 3 Ml Ampul.Neb) 3 ml INHALE QID PRN PRN Reason: Shortness Of Breath Amitriptyline HCl (Amitriptyline Hcl 50 Mg Tablet) 50 mg PO BEDTIME [facility] Last Admin: 08/10/23 19:35 Dose: 50 mg Aspirin (Aspirin Enteric Coated 81 Mg Tablet.Dr) 81 mg PO DAILY@1200 [facility] Last Admin: 08/10/23 12:04 Dose: 81 mg Atorvastatin Calcium (Atorvastatin Calcium 20 Mg Tablet) 20 mg PO BEDTIME [facility] Last Admin: 08/10/23 19:34 Dose: 20 mg Carvedilol (Carvedilol 12.5 Mg Tablet) 12.5 mg PO BID [facility]; Protocol Last Admin: 08/11/23 08:42 Dose: 12.5 mg Enoxaparin Sodium (Enoxaparin Sodium 40 Mg/0.4 Ml Syringe) 40 mg SUBCUT Q24H [facility] Last Admin: 08/10/23 15:25 Dose: 40 mg Fenofibrate (Fenofibrate 160 Mg Tablet) 160 mg PO DAILY [facility] Last Admin: 08/11/23 08:42 Dose: 160 mg Fluticasone Propionate (Fluticasone Propionate Nasal 16 Gm [place]) 2 spray NOSTRIL-B DAILY [facility] Last Admin: 08/11/23 08:54 Dose: Not Given Fluticasone/Vilanterol (Fluticasone/Vilanterol 200/25 Blst.W.Dev) 1 puff INHALE RDAILY [facility] Last Admin: 08/11/23 07:51 Dose: 1 puff Gabapentin (Gabapentin 400 Mg Capsule) 800 mg PO TID [facility] Last Admin: 08/11/23 08:42 Dose: 800 mg Glucose (Glucose Gel 15 Gm Gel..Gram.) 15 gm PO Q15M PRN; Protocol PRN Reason: per Hypoglycemia Standing Ord. Hydroxyzine HCl (Hydroxyzine Hcl 50 Mg Tablet) 50 mg PO TID PRN PRN Reason: Anxiety Dextrose (D10) 250 mls @ 750 mls/hr IV Q15M PRN; Protocol PRN Reason: per Hypoglycemia Standing Ord. Piperacillin Sod/Tazobactam (Sod 3.375 gm/ Sodium Chloride) 50 mls @ 100 mls/hr IV Q6H [facility] Last Infusion: 08/11/23 09:33 Dose: Infused Vancomycin HCl 1,250 mg/ (Sodium Chloride) 250 mls @ 166.667 mls/hr IV Q12H [facility] Last Infusion: 08/11/23 08:55 Dose: Infused Insulin Glargine (Insulin Glargine,Hum.Rec.Anlog 100 Unit/Ml 10 Ml Vial) 20 unit SUBCUT BEDTIME [facility] Last Admin: 08/10/23 20:31 Dose: 20 unit Insulin Human Lispro (Insulin Lispro 100 Unit/Ml 3 Ml Vial) 0 unit SUBCUT QIDACHS [facility]; Protocol Last Admin: 08/11/23 07:47 Dose: Not Given Loratadine (Loratadine 10 Mg Tablet) 10 mg PO DAILY@1200 [facility] Last Admin: 08/10/23 12:04 Dose: 10 mg Magnesium Hydroxide (Milk Of Magnesia 30 Ml Oral.Susp) 30 ml PO DAILY PRN PRN Reason: Constipation Melatonin (Melatonin 3 Mg Tablet) 6 mg PO BEDTIME PRN PRN Reason: Insomnia Metformin HCl (Metformin Hcl 500 Mg Tablet) 500 mg PO BIDWM [facility] Last Admin: 08/11/23 07:45 Dose: Not Given Methadone HCl (Methadone Hcl 20 Mg/2 Ml Oral.Conc) 75 mg PO DAILY [facility] Last Admin: 08/11/23 08:42 Dose: 75 mg Omeprazole (Omeprazole 20 Mg Capsule.Dr) 20 mg PO BID@0630,1630 [facility] Last Admin: 08/11/23 06:20 Dose: 20 mg Oxycodone HCl (Oxycodone Hcl Immed Release 5 Mg Tablet) 5 mg PO Q6H PRN PRN Reason: Pain, Severe (Pain Scale 7-10) Last Admin: 08/10/23 22:25 Dose: 5 mg Pharmacy Consult (Consult Rx Vancomycin Dosing) 1 each MISCELLANE DAILY PRN PRN Reason: Consult order Quetiapine Fumarate (Quetiapine Fumarate 25 Mg Tablet) 25 mg PO BID PRN PRN Reason: anxiety Quetiapine Fumarate (Quetiapine Fumarate 300 Mg Tablet) 300 mg PO BEDTIME [facility] Last Admin: 08/10/23 19:35 Dose: 300 mg Sertraline HCl (Sertraline Hcl 100 Mg Tablet) 100 mg PO DAILY [facility] Last Admin: 08/11/23 08:42 Dose: 100 mg Sodium Chloride (0.9 % Sodium Chloride Flush 3 Ml Syringe) 3 ml IVFLUSH QSHIFT [facility] Last Admin: 08/11/23 07:37 Dose: Not Given Home Medications ?Medication ?Instructions ?Recorded ?Confirmed ?Last Taken ?Type acetaminophen 500 mg capsule 500 mg PO Q8H PRN Pain (Scale 10/17/22 08/09/23 Unknown History (Mapap (acetaminophen)) Score 1-3) albuterol sulfate 90 mcg/actuation 2 puff inhalation QID PRN 10/17/22 08/09/23 Unknown History aerosol inhaler (Ventolin HFA) Shortness Of Breath amitriptyline 50 mg tablet 50 mg PO BEDTIME 10/17/22 08/09/23 08/08/23 History aspirin 81 mg tablet,delayed 81 mg PO DAILY@1200 10/17/22 08/09/23 08/09/23 History release carvedilol 12.5 mg tablet 12.5 mg PO BID 10/17/22 08/09/23 08/09/23 History fenofibrate 160 mg tablet 160 mg PO DAILY 10/17/22 08/09/23 08/09/23 History fluticasone propionate 50 2 spray intranasal DAILY 10/17/22 08/09/23 08/09/23 History mcg/actuation nasal spray,suspension gabapentin 800 mg tablet 800 mg PO TID 10/17/22 08/09/23 08/09/23 History glipizide 10 mg tablet 10 mg PO BIDAC 10/17/22 08/09/23 08/09/23 History hydroxyzine pamoate 50 mg capsule 50 mg PO TID PRN Anxiety 10/17/22 08/09/23 Unknown History insulin aspart U-100 100 unit/mL See Protocol subcut TIDAC 10/17/22 08/09/23 Unknown History (3 mL) subcutaneous pen (Novolog FlexPen U-100 Insulin aspart) insulin glargine 100 unit/mL (3 45 unit subcut BEDTIME 10/17/22 08/09/23 08/08/23 History mL) subcutaneous pen (Lantus Solostar U-100 Insulin) ipratropium 0.5 mg-albuterol 3 mg 3 ml inhalation QID PRN Shortness 10/17/22 08/09/23 Unknown History (2.5 mg base)/3 mL nebulization Of Breath soln loratadine 10 mg tablet 10 mg PO DAILY@1200 10/17/22 08/09/23 08/09/23 History metformin 500 mg tablet 500 mg PO BIDWM 10/17/22 08/09/23 08/09/23 History omeprazole 20 mg capsule,delayed 20 mg PO BID@0630,1630 10/17/22 08/09/23 08/09/23 History release quetiapine 25 mg tablet 25 mg PO BID PRN anxiety 10/17/22 08/09/23 Unknown History quetiapine 300 mg tablet 300 mg PO BEDTIME 10/17/22 08/09/23 08/08/23 History sertraline 100 mg tablet 100 mg PO DAILY 10/17/22 08/09/23 08/09/23 History simvastatin 40 mg tablet 40 mg PO QPM 10/17/22 08/09/23 08/08/23 History methadone 10 mg/mL oral 75 mg PO DAILY 10/18/22 08/10/23 08/09/23 History concentrate (Methadone Intensol) Physical Exam Vital Signs: Vital Signs: Last Vital Signs Temp 96.9 F 08/11/23 07:56 Pulse 95 08/11/23 08:42 Resp 18 08/11/23 07:56 BP 144/79 H 08/11/23 08:42 Pulse Ox 96 08/11/23 07:56 O2 Del Method Room Air 08/11/23 07:56 BMI result Body Mass Index 29.1 Const: General: cooperative, healthy appearing and comfortable Orientation/consciousness: oriented to person, oriented to place and oriented to time HEENT: Head: Yes normal to inspection Neck: Neck: Yes normal visual inspection Carotids: no bruits Chest: Chest palpation & inspection: normal inspection of the chest Resp: Effort & Inspection: normal respiratory effort and able to speak in complete sentences Auscultation: clear to auscultation bilaterally, no crackles, no rales, no rhonchi and no wheezes Cardio: Rate: regular rate Rhythm: regular rhythm Heart sounds: S1 normal heart sound present and S2 normal heart sound present Bruits: no carotid bruits Peripheral pulses: Peripheral pulses 2+ throughout GI: Inspection: Yes normal to inspection Skin: Other: Bilateral 2nd toe plantar aspect focal ulcerations. Left 2nd toe inflamed. Bilateral hammertoes Wounds: no wounds Hair: normal Neuro: General: oriented to person, oriented to place and oriented to time Cranial nerves: Yes CN's II-XII intact bilaterally and Yes Normal hearing present Cognition (Neuro): normal cognition Motor exam (neuro): 5/5 motor strength present throughout Extrem: Other: venous exam: +1 edema General: No clubbing, No cyanosis and No edema Psych: Appearance: grossly normal Mental Status: mental status grossly normal Speech and movement: Normal speech and movement present Results Labs 08/09/23 13:02 08/11/23 05:34 Labs: Abnormal lab results 08/10/23 08/10/23 08/10/23 Range/Units 09:15 11:40 16:16 Sodium 133 L (135-145) mmol/L Carbon Dioxide 21 L (22-29) mmol/L POC Glucose 133 H (60-115) mg/dL Random Glucose 177 H (60-115) mg/dL Random Vancomycin 11.1 L (15-20) mcg/mL 08/10/23 08/11/23 Range/Units 17:15 07:27 Sodium (135-145) mmol/L Carbon Dioxide (22-29) mmol/L POC Glucose 136 H 171 H (60-115) mg/dL Random Glucose (60-115) mg/dL Random Vancomycin (15-20) mcg/mL BMP 08/10/23 08/11/23 09:15 05:34 Sodium 133 L Potassium 4.2 Chloride 102 Carbon Dioxide 21 L BUN 13 Creatinine 0.81 1.08 Calcium 8.8 D Urine 08/09/23 Range/Units 13:56 Urine Color Yellow Urine Appearance Clear Urine pH 6.5 (5.0-9.0) Ur Specific [place] >= 1.030 H (1.005-1.025) Urine Protein Negative (Neg-Trace) mg/dL Urine Glucose (UA) >=1000 H (Negative) mg/dL All other labs normal. Assessment and Plan (1) Lower extremity ulceration: Qualifiers: Laterality: unspecified laterality Non-pressure ulcer stage: unspecified non-pressure ulcer stage Qualified Code(s): L97.909 - Non-pressure chronic ulcer of unspecified part of unspecified lower leg with unspecified severity Status: Acute Plan In short patient has nonhealing bilateral lower extremity ulcers. He has palpable bilateral dorsalis pedis pulses it does not appear to be arterial in nature. At the current time would manage this conservatively with appropriate footwear offloading in antibiotic therapy. No surgical intervention required. We will follow on an as-needed basis. Thank you for allowing us to assist in his care. If there are any questions or concerns please do not hesitate to contact us. Procedures Date of Service Date of Service: 08/11/23
[2023-08-11 11:22] LABS: Glucose, Whole Blood 226 mg/dL (60-115)
[2023-08-11] MEDS: Aspirin Enteric Coated 81 MG TABLET.DR PO (11:28)
[2023-08-11] MEDS: Insulin Lispro 100 UNIT/ML 3 ML VIAL SUBCUT ×3 (11:28→21:06)
[2023-08-11] MEDS: Loratadine 10 MG TABLET PO (11:28)
--- NOTE | 2023-08-11 14:33 | MHC.CM.PN ---
Per MD rounds patient will not discharge today. A CT of foot to R/O Osteo is ordered today. DP dependent on CT results and cultures. DP self care. May need to take the Shuttle home at discharge.
[2023-08-11] MEDS: Enoxaparin Sodium 40 MG/0.4 ML SYRINGE SUBCUT (15:01)
--- NOTE | 2023-08-11 16:05 | HO.WOUND ---
Wound Consult: Initial 58yr old?Male admitted to [facility] on 08/09/23 - See progress notes and H&P for detailed history.? Wound consult placed for Toe wounds POA.? Patient agreeable to assessment and photo documentation.? Patient reports he has had these wounds for some time - he reports she needs new shoes but due to transporation issues is not able to obtain order for new orthotic shoes. Patient report he is working on getting ride to MD office for when discharged. The Patient reports she is not interested in outpt wound clinic at this time - we discussed the benefits of continued wound healing - he reports understanding but reports it is unlikely he will attend the [facility]. Left 2nd Toe Left second toe Etiology: ?Diabetic Wound ? Measurements: see charting for detailed measurements Wound Bed: central to toe adherent yellow slough - intertrigo pink moist tissue at base of toe Drainage / Odor: difficult to assess as no dressing in place Edges: ? well defined Cheli wound: pink red erythema improving per pt statement, swelling noted, +PP Pain: denies Goals of Treatment: ? Durafiber for moisture management Right second toe Etiology: ?Diabetic Wound ? Measurements: see charting for detailed measurements Wound Bed: stable dry callused area noted Drainage / Odor: None Edges: callused Cheli wound: intact dry callused tissue Pain: denies Goals of Treatment: ? Betadine to keep calluse stable Recommendations: 1. Turn and Reposition every 2 hours and as needed for patient comfort.? Use pillows or wedges to support off loading positions. 2. Off Load all bony prominences with use of pillows and heel boots if needed.? Apply Preventative foams where needed. ? 3. Monitor for incontinence and moisture control, use barrier creams when needed for prevention and treatment. 4. Provide adequate and supplemental nutrition.? 5. Order or Continue low air loss mattress. 6. When applicable maintain blood glucose levels per Providers order. 7. Right 2nd Toe - [place] with Betadine allow to air dry. Daily 8. Left 2nd Toe - Cleanse with NS wound wash, pat dry. Apply cut to size Durafiber AG cover with dry gauze and wrap. Change every other day. Re-consult wound care Nurse for wound deterioration or wound changes.
[2023-08-11 16:14] LABS: Glucose, Whole Blood 195 mg/dL (60-115)
[2023-08-11 17:19] LABS: Vancomycin Random 14.2 mcg/mL (15-20)
[2023-08-11 20:37] LABS: Glucose, Whole Blood 235 mg/dL (60-115)
[2023-08-11] MEDS: Atorvastatin Calcium 20 MG TABLET PO (20:59)
[2023-08-11] MEDS: oxyCODONE HCl Immed Release 5 MG TABLET PO (21:01)
[2023-08-11] MEDS: QUEtiapine Fumarate 300 MG TABLET PO (21:06)
[2023-08-11] MEDS: Amitriptyline HCl 50 MG TABLET PO (21:06)
[2023-08-11] MEDS: Insulin Glargine,Hum.rec.anlog 100 UNIT/ML 10 ML VIAL 20 UNIT SUBCUT (21:07)
--- NOTE | 2023-08-11 21:51 | P.CNID_ITS ---
History of Present Illness Data of Consult Service Date: 08/11/23 Requesting physician: Giovanni Vázquez Primary Care Provider: [facility] Reason for consult: foot infection left second toe He has discomfort left second toe after blister burst. He has no fever or chills. He has symptoms for a week. He went to [facility] Urgent Care and was sent to hospital. Review of Systems 2 Review of Systems: Yes all other systems are reviewed and are negative [facility] Past Medical History Medical History Moderate persistent asthma Depression Anxiety GERD (gastroesophageal reflux disease) Diabetes Asthma Substance abuse Family History Family History Father Diabetes mellitus Alcohol abuse Family history: reviewed and not pertinent Surgical History Surgical History No pertinent past surgical history Social History Social History Household Members: Family Housing: House Do you presently have visiting nurse or other home services: No Unable to assess alcohol history related to: Unable to respond and Unknown Patient Tobacco Use Status: Never used Tobacco Substance Use Type: Marijuana service: No Meds Allergies Allergy/AdvReac Type Severity Reaction Status Date / Time bee pollen [BEE STINGS] Allergy Severe THROAT Verified 08/09/23 12:49 SWELLING raspberry [RASPBERRY] Allergy Severe UNKNOWN Verified 08/09/23 12:49 tadalafil [From CIALIS] Allergy Severe ANAPHYLAXIS Verified 08/09/23 12:49 wool Allergy Intermediate RASH Verified 08/09/23 12:49 Active Medications: Current Medications Acetaminophen (Acetaminophen 325 Mg Tablet) 650 mg PO Q6H PRN PRN Reason: Pain, Mild (Pain Scale 1-3) Last Admin: 08/11/23 07:49 Dose: 650 mg Acetaminophen (Acetaminophen Supp 650 Mg Supp.Rect) 650 mg [place] Q6H PRN PRN Reason: Pain, Mild (Pain Scale 1-3) Albuterol Sulfate (Albuterol Sulfate 90 Mcg 8 Gm Inhaler) 2 puff INHALE QID PRN PRN Reason: Shortness Of Breath Albuterol/Ipratropium (Albuterol/Iprat 2.5/0.5mg 3 Ml Ampul.Neb) 3 ml INHALE QID PRN PRN Reason: Shortness Of Breath Amitriptyline HCl (Amitriptyline Hcl 50 Mg Tablet) 50 mg PO BEDTIME [facility] Last Admin: 08/11/23 21:06 Dose: 50 mg Aspirin (Aspirin Enteric Coated 81 Mg Tablet.Dr) 81 mg PO DAILY@1200 [facility] Last Admin: 08/11/23 11:28 Dose: 81 mg Atorvastatin Calcium (Atorvastatin Calcium 20 Mg Tablet) 20 mg PO BEDTIME [facility] Last Admin: 08/11/23 20:59 Dose: 20 mg Carvedilol (Carvedilol 12.5 Mg Tablet) 12.5 mg PO BID [facility]; Protocol Last Admin: 08/11/23 21:01 Dose: 12.5 mg Enoxaparin Sodium (Enoxaparin Sodium 40 Mg/0.4 Ml Syringe) 40 mg SUBCUT Q24H [facility] Last Admin: 08/11/23 15:01 Dose: 40 mg Fenofibrate (Fenofibrate 160 Mg Tablet) 160 mg PO DAILY [facility] Last Admin: 08/11/23 08:42 Dose: 160 mg Fluticasone Propionate (Fluticasone Propionate Nasal 16 Gm [place]) 2 spray NOSTRIL-B DAILY [facility] Last Admin: 08/11/23 08:54 Dose: Not Given Fluticasone/Vilanterol (Fluticasone/Vilanterol 200/25 Blst.W.Dev) 1 puff INHALE RDAILY [facility] Last Admin: 08/11/23 07:51 Dose: 1 puff Gabapentin (Gabapentin 400 Mg Capsule) 800 mg PO TID [facility] Last Admin: 08/11/23 21:02 Dose: 800 mg Glucose (Glucose Gel 15 Gm Gel..Gram.) 15 gm PO Q15M PRN; Protocol PRN Reason: per Hypoglycemia Standing Ord. Hydroxyzine HCl (Hydroxyzine Hcl 50 Mg Tablet) 50 mg PO TID PRN PRN Reason: Anxiety Dextrose (D10) 250 mls @ 750 mls/hr IV Q15M PRN; Protocol PRN Reason: per Hypoglycemia Standing Ord. Piperacillin Sod/Tazobactam (Sod 3.375 gm/ Sodium Chloride) 50 mls @ 100 mls/hr IV Q6H [facility] Last Admin: 08/11/23 21:09 Dose: 100 mls/hr Vancomycin HCl 1,250 mg/ (Sodium Chloride) 250 mls @ 166.667 mls/hr IV Q12H [facility] Last Infusion: 08/11/23 19:36 Dose: Infused Insulin Glargine (Insulin Glargine,Hum.Rec.Anlog 100 Unit/Ml 10 Ml Vial) 20 unit SUBCUT BEDTIME [facility] Last Admin: 08/11/23 21:07 Dose: 20 unit Insulin Human Lispro (Insulin Lispro 100 Unit/Ml 3 Ml Vial) 0 unit SUBCUT QIDACHS [facility]; Protocol Last Admin: 08/11/23 21:06 Dose: 4 unit Loratadine (Loratadine 10 Mg Tablet) 10 mg PO DAILY@1200 [facility] Last Admin: 08/11/23 11:28 Dose: 10 mg Magnesium Hydroxide (Milk Of Magnesia 30 Ml Oral.Susp) 30 ml PO DAILY PRN PRN Reason: Constipation Melatonin (Melatonin 3 Mg Tablet) 6 mg PO BEDTIME PRN PRN Reason: Insomnia Metformin HCl (Metformin Hcl 500 Mg Tablet) 500 mg PO BIDWM [facility] Last Admin: 08/11/23 07:45 Dose: Not Given Methadone HCl (Methadone Hcl 20 Mg/2 Ml Oral.Conc) 75 mg PO DAILY [facility] Last Admin: 08/11/23 08:42 Dose: 75 mg Omeprazole (Omeprazole 20 Mg Capsule.Dr) 20 mg PO BID@0630,1630 [facility] Last Admin: 08/11/23 16:28 Dose: 20 mg Oxycodone HCl (Oxycodone Hcl Immed Release 5 Mg Tablet) 5 mg PO Q6H PRN PRN Reason: Pain, Severe (Pain Scale 7-10) Last Admin: 08/11/23 21:01 Dose: 5 mg Pharmacy Consult (Consult Rx Vancomycin Dosing) 1 each MISCELLANE DAILY PRN PRN Reason: Consult order Quetiapine Fumarate (Quetiapine Fumarate 25 Mg Tablet) 25 mg PO BID PRN PRN Reason: anxiety Quetiapine Fumarate (Quetiapine Fumarate 300 Mg Tablet) 300 mg PO BEDTIME [facility] Last Admin: 08/11/23 21:06 Dose: 300 mg Sertraline HCl (Sertraline Hcl 100 Mg Tablet) 100 mg PO DAILY [facility] Last Admin: 08/11/23 08:42 Dose: 100 mg Sodium Chloride (0.9 % Sodium Chloride Flush 3 Ml Syringe) 3 ml IVFLUSH QSHIFT [facility] Last Admin: 08/11/23 21:14 Dose: 3 ml Home Medications ?Medication ?Instructions ?Recorded ?Confirmed ?Last Taken ?Type acetaminophen 500 mg capsule 500 mg PO Q8H PRN Pain (Scale 10/17/22 08/09/23 Unknown History (Mapap (acetaminophen)) Score 1-3) albuterol sulfate 90 mcg/actuation 2 puff inhalation QID PRN 10/17/22 08/09/23 Unknown History aerosol inhaler (Ventolin HFA) Shortness Of Breath amitriptyline 50 mg tablet 50 mg PO BEDTIME 10/17/22 08/09/23 08/08/23 History aspirin 81 mg tablet,delayed 81 mg PO DAILY@1200 10/17/22 08/09/23 08/09/23 History release carvedilol 12.5 mg tablet 12.5 mg PO BID 10/17/22 08/09/23 08/09/23 History fenofibrate 160 mg tablet 160 mg PO DAILY 10/17/22 08/09/23 08/09/23 History fluticasone propionate 50 2 spray intranasal DAILY 10/17/22 08/09/23 08/09/23 History mcg/actuation nasal spray,suspension gabapentin 800 mg tablet 800 mg PO TID 10/17/22 08/09/23 08/09/23 History glipizide 10 mg tablet 10 mg PO BIDAC 10/17/22 08/09/23 08/09/23 History hydroxyzine pamoate 50 mg capsule 50 mg PO TID PRN Anxiety 10/17/22 08/09/23 Unknown History insulin aspart U-100 100 unit/mL See Protocol subcut TIDAC 10/17/22 08/09/23 Unknown History (3 mL) subcutaneous pen (Novolog FlexPen U-100 Insulin aspart) insulin glargine 100 unit/mL (3 45 unit subcut BEDTIME 10/17/22 08/09/23 08/08/23 History mL) subcutaneous pen (Lantus Solostar U-100 Insulin) ipratropium 0.5 mg-albuterol 3 mg 3 ml inhalation QID PRN Shortness 10/17/22 08/09/23 Unknown History (2.5 mg base)/3 mL nebulization Of Breath soln loratadine 10 mg tablet 10 mg PO DAILY@1200 10/17/22 08/09/23 08/09/23 History metformin 500 mg tablet 500 mg PO BIDWM 10/17/22 08/09/23 08/09/23 History omeprazole 20 mg capsule,delayed 20 mg PO BID@0630,1630 10/17/22 08/09/23 08/09/23 History release quetiapine 25 mg tablet 25 mg PO BID PRN anxiety 10/17/22 08/09/23 Unknown History quetiapine 300 mg tablet 300 mg PO BEDTIME 10/17/22 08/09/23 08/08/23 History sertraline 100 mg tablet 100 mg PO DAILY 10/17/22 08/09/23 08/09/23 History simvastatin 40 mg tablet 40 mg PO QPM 10/17/22 08/09/23 08/08/23 History methadone 10 mg/mL oral 75 mg PO DAILY 10/18/22 08/10/23 08/09/23 History concentrate (Methadone Intensol) Physical Exam 2 Vital Signs: Vital Signs: Last Vital Signs Temp 97 F 08/11/23 19:59 Pulse 80 08/11/23 21:01 Resp 16 08/11/23 19:59 BP 163/90 H 08/11/23 21:01 Pulse Ox 95 08/11/23 19:59 O2 Del Method Room Air 08/11/23 19:59 BMI result Body Mass Index 29.1 Const: General: cooperative HEENT: Head: Yes normal to inspection Face and sinus: Yes normal facial exam Mouth: Normal oral and palatal mucosa present Teeth and gingiva: d entition normal Eyes: General: appearance normal, both eyes and all related structures P upils: Equal, round and reactive pupils present Resp: Effort & Inspection: normal respiratory effort Cardio: Rate: regular rate Rhythm: regular rhythm GI: Palpation (GI): Soft to palpation and nontender : General: Yes no CVA tenderness Back/Spine/Pelvis: Back: no CVA tenderness Skin: General skin exam: no rashes or lesions noted Neuro: General: moves all extremities Cranial nerves: Yes Equal, round and reactive pupils present Extrem: Other: left second toe erythema tip Psych: Appearance: grossly normal Results Labs 08/09/23 13:02 08/11/23 05:34 Labs: BMP 08/11/23 05:34 Creatinine 1.08 Microbiology Microbiology Results: Microbiology 08/09/23 14:15 Blood - Venous Blood Culture - Preliminary No growth after 48 hours. 08/09/23 14:12 Blood - Venous Blood Culture - Preliminary No growth after 48 hours. Assessment and Plan (1) Lower extremity ulceration: Qualifiers: Laterality: unspecified laterality Non-pressure ulcer stage: u nspecified non-pressure ulcer stage Qualified Code(s): L97.909 - Non-pressure chronic ulcer of unspecified part of unspecified lower leg with unspecified severity Status: Acute (2) Hyperglycemia: Status: Acute (3) Diabetic infection of left foot: Status: Acute Plan He has probable early OM with difficulty visualizing tip of toe. He has no bacteremia There are no positive cultures. Continue Vancomycin and piperacillin/tazobactam. six weeks IV Ertapenem if cultures negative or adapt antibiotics to suit cultures. Follow Podiatry
[2023-08-12] MEDS: Piperacillin Sodium/Tazobactam 3.375 GM in 0.9 % Sodium Chloride 50 ML IV ×4 (02:12→21:56)
[2023-08-12 03:40] VITALS: BP 130/71; PULSE 80; RESP 16; TEMP 36.6; O2SAT 97
[2023-08-12] MEDS: vancomycin HCL 1,250 MG in 0.9 % Sodium Chloride 250 ML 166.67 MG IV ×2 (05:21→17:01)
[2023-08-12] MEDS: Omeprazole 20 MG CAPSULE.DR PO ×2 (05:21→15:41)
[2023-08-12 07:14] LABS: Creatinine Clr Calc Pharmacy 102.3; Estimated Glomerular Filt Rate > 60
[2023-08-12 07:40] VITALS: BP 125/69; PULSE 79; RESP 16; TEMP 36.2; O2SAT 92
[2023-08-12 07:53] LABS: Glucose, Whole Blood 133 mg/dL (60-115)
[2023-08-12] MEDS: Fluticasone/Vilanterol 200/25 BLST.W.DEV 1 PUFF INHALE (08:02)
[2023-08-12 08:03] VITALS: PULSE 79; RESP 16; O2SAT 96
[2023-08-12] MEDS: Sertraline HCL 100 MG TABLET PO (08:05)
[2023-08-12] MEDS: Fenofibrate 160 MG TABLET PO (08:05)
[2023-08-12] MEDS: Gabapentin 400 MG CAPSULE 800 MG PO ×3 (08:05→21:55)
[2023-08-12] MEDS: carvediloL 12.5 MG TABLET PO ×2 (08:05→21:56)
[2023-08-12] MEDS: methADONE HCl 20 MG/2 ML ORAL.CONC 75 MG PO (08:06)
[2023-08-12] MEDS: 0.9 % Sodium Chloride Flush 3 ML SYRINGE IVFLUSH ×3 (08:06→21:57)
[2023-08-12] MEDS: Fluticasone Propionate Nasal 16 GM SPRAY 2 SPRAY NOSTRIL-B (08:11)
--- NOTE | 2023-08-12 10:14 | HO.PM.IMPN ---
Subjective Subjective Date of Service: 08/12/23 Interval History: f/u on diabetic foot ulcer, concern for osteo No new issues, getting better Physical Exam Vital Signs: Vital Signs: Last Vital Signs Temp 97.2 F 08/12/23 07:40 Pulse 79 08/12/23 08:03 Resp 16 08/12/23 08:03 BP 125/69 08/12/23 07:40 Pulse Ox 92 08/12/23 07:40 O2 Del Method Room Air 08/12/23 07:40 BMI result Body Mass Index 29.1 General: AO X 3, no acute distress Resp: CTA bilateral CVS: S1,S2,RRR GI: +BS, NT, no distention Skin: wound of feet unchanged from prior pictures Neuro: motor grossly intact Psych: appropriate affect Objective Data Active Medications Acetaminophen (Acetaminophen 325 Mg Tablet) 650 mg PO Q6H PRN PRN Reason: Pain, Mild (Pain Scale 1-3) Last Admin: 08/11/23 07:49 Dose: 650 mg Documented By: ZAKIYA Acetaminophen (Acetaminophen Supp 650 Mg Supp.Rect) 650 mg [place] Q6H PRN PRN Reason: Pain, Mild (Pain Scale 1-3) Albuterol Sulfate (Albuterol Sulfate 90 Mcg 8 Gm Inhaler) 2 puff INHALE QID PRN PRN Reason: Shortness Of Breath Albuterol/Ipratropium (Albuterol/Iprat 2.5/0.5mg 3 Ml Ampul.Neb) 3 ml INHALE QID PRN PRN Reason: Shortness Of Breath Amitriptyline HCl (Amitriptyline Hcl 50 Mg Tablet) 50 mg PO BEDTIME [facility] Last Admin: 08/11/23 21:06 Dose: 50 mg Documented By: ELVA Aspirin (Aspirin Enteric Coated 81 Mg Tablet.) 81 mg PO DAILY@1200 [facility] Last Admin: 08/11/23 11:28 Dose: 81 mg Documented By: ZAKIYA Atorvastatin Calcium (Atorvastatin Calcium 20 Mg Tablet) 20 mg PO BEDTIME [facility] Last Admin: 08/11/23 20:59 Dose: 20 mg Documented By: ELVA Carvedilol (Carvedilol 12.5 Mg Tablet) 12.5 mg PO BID [facility]; Protocol Last Admin: 08/12/23 08:05 Dose: 12.5 mg Documented By: JAIR Enoxaparin Sodium (Enoxaparin Sodium 40 Mg/0.4 Ml Syringe) 40 mg SUBCUT Q24H [facility] Last Admin: 08/11/23 15:01 Dose: 40 mg Documented By: ZAKIYA Fenofibrate (Fenofibrate 160 Mg Tablet) 160 mg PO DAILY [facility] Last Admin: 08/12/23 08:05 Dose: 160 mg Documented By: JAIR Fluticasone Propionate (Fluticasone Propionate Nasal 16 Gm [place]) 2 spray NOSTRIL-B DAILY [facility] Last Admin: 08/12/23 08:11 Dose: 2 spray Documented By: JAIR Fluticasone/Vilanterol (Fluticasone/Vilanterol 200/25 Blst.W.Dev) 1 puff INHALE RDAILY [facility] Last Admin: 08/12/23 08:02 Dose: 1 puff Documented By: ROSS Gabapentin (Gabapentin 400 Mg Capsule) 800 mg PO TID [facility] Last Admin: 08/12/23 08:05 Dose: 800 mg Documented By: JAIR Glucose (Glucose Gel 15 Gm Gel..Gram.) 15 gm PO Q15M PRN; Protocol PRN Reason: per Hypoglycemia Standing Ord. Hydroxyzine HCl (Hydroxyzine Hcl 50 Mg Tablet) 50 mg PO TID PRN PRN Reason: Anxiety Dextrose (D10) 250 mls @ 750 mls/hr IV Q15M PRN; Protocol PRN Reason: per Hypoglycemia Standing Ord. Piperacillin Sod/Tazobactam (Sod 3.375 gm/ Sodium Chloride) 50 mls @ 100 mls/hr IV Q6H [facility] Last Infusion: 08/12/23 09:28 Dose: Infused Documented By: JAIR Vancomycin HCl 1,250 mg/ (Sodium Chloride) 250 mls @ 166.667 mls/hr IV Q12H [facility] Last Infusion: 08/12/23 07:02 Dose: Infused Documented By: JAIR Insulin Glargine (Insulin Glargine,Hum.Rec.Anlog 100 Unit/Ml 10 Ml Vial) 20 unit SUBCUT BEDTIME [facility] Last Admin: 08/11/23 21:07 Dose: 20 unit Documented By: ELVA Insulin Human Lispro (Insulin Lispro 100 Unit/Ml 3 Ml Vial) 0 unit SUBCUT QIDACHS [facility]; Protocol Last Admin: 08/12/23 07:55 Dose: Not Given Documented By: JAIR Non-Admin Reason: No Insulin Coverage Loratadine (Loratadine 10 Mg Tablet) 10 mg PO DAILY@1200 [facility] Last Admin: 08/11/23 11:28 Dose: 10 mg Documented By: ZAKIYA Magnesium Hydroxide (Milk Of Magnesia 30 Ml Oral.Susp) 30 ml PO DAILY PRN PRN Reason: Constipation Melatonin (Melatonin 3 Mg Tablet) 6 mg PO BEDTIME PRN PRN Reason: Insomnia Metformin HCl (Metformin Hcl 500 Mg Tablet) 500 mg PO BIDWM [facility] Last Admin: 08/11/23 07:45 Dose: Not Given Documented By: ZAKIYA Non-Admin Reason: Physician Held Med Methadone HCl (Methadone Hcl 20 Mg/2 Ml Oral.Conc) 75 mg PO DAILY [facility] Last Admin: 08/12/23 08:06 Dose: 75 mg Documented By: JAIR Omeprazole (Omeprazole 20 Mg Capsule.Dr) 20 mg PO BID@0630,1630 [facility] Last Admin: 08/12/23 05:21 Dose: 20 mg Documented By: DUANE Oxycodone HCl (Oxycodone Hcl Immed Release 5 Mg Tablet) 5 mg PO Q6H PRN PRN Reason: Pain, Severe (Pain Scale 7-10) Last Admin: 08/11/23 21:01 Dose: 5 mg Documented By: ELVA Pharmacy Consult (Consult Rx Vancomycin Dosing) 1 each MISCELLANE DAILY PRN PRN Reason: Consult order Quetiapine Fumarate (Quetiapine Fumarate 25 Mg Tablet) 25 mg PO BID PRN PRN Reason: anxiety Quetiapine Fumarate (Quetiapine Fumarate 300 Mg Tablet) 300 mg PO BEDTIME [facility] Last Admin: 08/11/23 21:06 Dose: 300 mg Documented By: ELVA Sertraline HCl (Sertraline Hcl 100 Mg Tablet) 100 mg PO DAILY [facility] Last Admin: 08/12/23 08:05 Dose: 100 mg Documented By: JAIR Sodium Chloride (0.9 % Sodium Chloride Flush 3 Ml Syringe) [facility] Admin: 08/12/23 08:06 Dose: 3 ml Documented By: JAIR Labs 08/09/23 13:02 08/12/23 05:54 Labs: Laboratory Results - last 24 hr 08/11/23 08/11/23 08/11/23 11:12 16:04 16:45 Estim Creat Clear Calc Estimated GFR POC Glucose 226 H 195 H Random Vancomycin 14.2 L 08/11/23 08/12/23 08/12/23 20:32 05:54 07:44 Estim Creat Clear Calc 102.3 Estimated GFR > 60 POC Glucose 235 H 133 H Random Vancomycin Microbiology Microbiology Results: Microbiology 08/09/23 14:15 Blood Culture - Preliminary Blood - Venous No growth after 48 hours. 08/09/23 14:12 Blood Culture - Preliminary Blood - Venous No growth after 48 hours. Assessment and Plan (1) Hyperglycemia: Status: Acute (2) Diabetic infection of left foot: Status: Acute Plan 58/m with diabetes here with Diabetic foot ulcer, rule out acute osteomylitis -continue Vanco and Zosyn, -CT to further assess -vascular no intervention, continue Abx -ID --six weeks IV Ertapenem if cultures negative -request PICC line Monday Uncontrolled Diabetic with hyperglycemia, AC > 12, likely non compliant with med as very good control here -continue Lantus, Metformin and sliding scale, hold glipizide HypONatremia--Pseudohyponatremia d/t high glucose, resolved Moderate persistent Asthma, no exacerbation. Bronchodilators PRN diabetic peripheral neuropathy--gabapentin Opioid use disorder--Methadone GERD Continue PPI Mood disorders--continue home meds HLD-statin DVT prophylaxis--lovenox need for inpt: diabetic foot ulcer, ruling out osteo, currently on IV Abx, further work up Quality Stroke Does the patient have a stroke diagnosis?: No VTE Prior VTE?: No VTE Risk Level:: Medical - moderate - high VTE Device Contraindication: Treatment Not Indicated VTE Drug Contraindication: N/A - Med Ordered
[2023-08-12 11:28] LABS: Glucose, Whole Blood 187 mg/dL (60-115)
[2023-08-12] MEDS: Loratadine 10 MG TABLET PO (11:50)
[2023-08-12] MEDS: Aspirin Enteric Coated 81 MG TABLET.DR PO (11:50)
[2023-08-12] MEDS: Insulin Lispro 100 UNIT/ML 3 ML VIAL SUBCUT ×3 (11:50→22:06)
--- NOTE | 2023-08-12 13:10 | HE.PHANOTE ---
RE METHADONE VERIFICATION LAST DOSE 75 MG 08/10/23 @[facility]
[2023-08-12] MEDS: Enoxaparin Sodium 40 MG/0.4 ML SYRINGE SUBCUT (14:23)
[2023-08-12] MEDS: hydrOXYzine HCL 50 MG TABLET PO (15:41)
[2023-08-12] MEDS: oxyCODONE HCl Immed Release 5 MG TABLET PO (15:41)
[2023-08-12 16:00] VITALS: BP 152/79; PULSE 75; RESP 18; TEMP 36.8; O2SAT 97
[2023-08-12 16:46] LABS: Glucose, Whole Blood 163 mg/dL (60-115)
--- NOTE | 2023-08-12 16:57 | HE.PHANOTE ---
RE: VANCO DOSING Random came back as 18 which is higher than prediction of 15.8 (predicted DUR=285). Since pt has good renal function (sCr 0.94), younger age (58), not overweight and indication of bone infection, will continue with dose of 1250 mg q12h. Nex random is scheduled for 08/13/23 @1600.
[2023-08-12 19:29] VITALS: BP 154/86; PULSE 81; RESP 18; TEMP 36.4; O2SAT 97
[2023-08-12 20:12] LABS: Glucose, Whole Blood 162 mg/dL (60-115)
[2023-08-12] MEDS: QUEtiapine Fumarate 300 MG TABLET PO (21:55)
[2023-08-12] MEDS: Atorvastatin Calcium 20 MG TABLET PO (21:55)
[2023-08-12] MEDS: Amitriptyline HCl 50 MG TABLET PO (21:55)
[2023-08-12] MEDS: Insulin Glargine,Hum.rec.anlog 100 UNIT/ML 10 ML VIAL 20 UNIT SUBCUT (21:56)
--- NOTE | 2023-08-12 23:43 | PC.NURSE ---
Assumed care of patient at 19:15. Patient is A&Ox4. Denies chest pain or other acute issues. Breathing is even and unlabored without distress on RA. VSS. HS poc 162; medicated with ISS and scheduled lantus as ordered and confirmed with covering Dr. Gray. DSD to left toe DM ulcer is c/d/i without drainage or surrounding redness. +pp/cms. Call palma within reach. Patient rings appropriately to make needs known. Please see shift assessment, tasks, and MAR for full details. Handoff report given to oncoming RN at 23:15.
[2023-08-13] MEDS: Piperacillin Sodium/Tazobactam 3.375 GM in 0.9 % Sodium Chloride 50 ML IV ×4 (02:59→20:22)
[2023-08-13 03:11] VITALS: BP 107/65; PULSE 65; RESP 18; TEMP 36.8; O2SAT 98
[2023-08-13] MEDS: vancomycin HCL 1,250 MG in 0.9 % Sodium Chloride 250 ML 166.67 MG IV ×2 (05:17→17:32)
[2023-08-13] MEDS: Omeprazole 20 MG CAPSULE.DR PO ×2 (05:20→16:15)
[2023-08-13 07:03] LABS: Creatinine Clr Calc Pharmacy 98.1; Estimated Glomerular Filt Rate > 60
[2023-08-13 07:22] VITALS: BP 124/73; PULSE 71; RESP 18; TEMP 36.1; O2SAT 95
[2023-08-13 07:30] LABS: Glucose, Whole Blood 133 mg/dL (60-115)
[2023-08-13] MEDS: Fluticasone/Vilanterol 200/25 BLST.W.DEV 1 PUFF INHALE (07:44)
[2023-08-13 07:45] VITALS: PULSE 73; RESP 18; O2SAT 95
--- NOTE | 2023-08-13 08:14 | P.PNIM_ITS ---
Subjective Subjective Date of Service: 08/13/23 Interval History: f/u on diabetic foot ulcer, concern for osteo no new issues, pain is controlled Physical Exam 2 Vital Signs: Vital Signs: Last Vital Signs Temp 96.9 F 08/13/23 07:22 Pulse 73 08/13/23 07:45 Resp 18 08/13/23 07:45 BP 124/73 08/13/23 07:22 Pulse Ox 95 08/13/23 07:22 O2 Del Method Room Air 08/13/23 07:22 BMI result Body Mass Index 29.1 General: AO X 3, no acute distress Resp: CTA bilateral CVS: S1,S2,RRR GI: +BS, NT, no distention Skin:unchanged Neuro: motor grossly intact Psych: appropriate affect Objective Data Active Medications Acetaminophen (Acetaminophen 325 Mg Tablet) 650 mg PO Q6H PRN PRN Reason: Pain, Mild (Pain Scale 1-3) Last Admin: 08/11/23 07:49 Dose: 650 mg Documented By: ZAKIYA Acetaminophen (Acetaminophen Supp 650 Mg Supp.Rect) 650 mg [place] Q6H PRN PRN Reason: Pain, Mild (Pain Scale 1-3) Albuterol Sulfate (Albuterol Sulfate 90 Mcg 8 Gm Inhaler) 2 puff INHALE QID PRN PRN Reason: Shortness Of Breath Albuterol/Ipratropium (Albuterol/Iprat 2.5/0.5mg 3 Ml Ampul.Neb) 3 ml INHALE QID PRN PRN Reason: Shortness Of Breath Amitriptyline HCl (Amitriptyline Hcl 50 Mg Tablet) 50 mg PO BEDTIME [facility] Last Admin: 08/12/23 21:55 Dose: 50 mg Documented By: REANNA Aspirin (Aspirin Enteric Coated 81 Mg Tablet.) 81 mg PO DAILY@1200 [facility] Last Admin: 08/12/23 11:50 Dose: 81 mg Documented By: JAIR Atorvastatin Calcium (Atorvastatin Calcium 20 Mg Tablet) 20 mg PO BEDTIME [facility] Last Admin: 08/12/23 21:55 Dose: 20 mg Documented By: REANNA Carvedilol (Carvedilol 12.5 Mg Tablet) 12.5 mg PO BID [facility]; Protocol Last Admin: 08/12/23 21:56 Dose: 12.5 mg Documented By: REANNA Enoxaparin Sodium (Enoxaparin Sodium 40 Mg/0.4 Ml Syringe) 40 mg SUBCUT Q24H [facility] Last Admin: 08/12/23 14:23 Dose: 40 mg Documented By: JAIR Fenofibrate (Fenofibrate 160 Mg Tablet) 160 mg PO DAILY [facility] Last Admin: 08/12/23 08:05 Dose: 160 mg Documented By: JAIR Fluticasone Propionate (Fluticasone Propionate Nasal 16 Gm [place]) 2 spray NOSTRIL-B DAILY [facility] Last Admin: 08/12/23 08:11 Dose: 2 spray Documented By: JAIR Fluticasone/Vilanterol (Fluticasone/Vilanterol 200/25 Blst.W.Dev) 1 puff INHALE RDAILY [facility] Last Admin: 08/13/23 07:44 Dose: 1 puff Documented By: ANY Gabapentin (Gabapentin 400 Mg Capsule) 800 mg PO TID [facility] Last Admin: 08/12/23 21:55 Dose: 800 mg Documented By: REANNA Glucose (Glucose Gel 15 Gm Gel..Gram.) 15 gm PO Q15M PRN; Protocol PRN Reason: per Hypoglycemia Standing Ord. Hydroxyzine HCl (Hydroxyzine Hcl 50 Mg Tablet) 50 mg PO TID PRN PRN Reason: Anxiety Last Admin: 08/12/23 15:41 Dose: 50 mg Documented By: JAIR Dextrose (D10) 250 mls @ 750 mls/hr IV Q15M PRN; Protocol PRN Reason: per Hypoglycemia Standing Ord. Piperacillin Sod/Tazobactam (Sod 3.375 gm/ Sodium Chloride) 50 mls @ 100 mls/hr IV Q6H [facility] Last Infusion: 08/13/23 04:04 Dose: Infused Documented By: DUANE Vancomycin HCl 1,250 mg/ (Sodium Chloride) 250 mls @ 166.667 mls/hr IV Q12H [facility] Last Infusion: 08/13/23 06:54 Dose: Infused Documented By: JAIR Insulin Glargine (Insulin Glargine,Hum.Rec.Anlog 100 Unit/Ml 10 Ml Vial) 20 unit SUBCUT BEDTIME [facility] Last Admin: 08/12/23 21:56 Dose: 20 unit Documented By: REANNA Comments: discussed POC trend with Dr. Gray who instructed to continue with this full dose Insulin Human Lispro (Insulin Lispro 100 Unit/Ml 3 Ml Vial) 0 unit SUBCUT QIDACHS [facility]; Protocol Last Admin: 08/13/23 07:32 Dose: Not Given Documented By: JAIR Non-Admin Reason: No Insulin Coverage Loratadine (Loratadine 10 Mg Tablet) 10 mg PO DAILY@1200 [facility] Last Admin: 08/12/23 11:50 Dose: 10 mg Documented By: JAIR Magnesium Hydroxide (Milk Of Magnesia 30 Ml Oral.Susp) 30 ml PO DAILY PRN PRN Reason: Constipation Melatonin (Melatonin 3 Mg Tablet) 6 mg PO BEDTIME PRN PRN Reason: Insomnia Metformin HCl (Metformin Hcl 500 Mg Tablet) 500 mg PO BIDWM [facility] Last Admin: 08/11/23 07:45 Dose: Not Given Documented By: ZAKIYA Non-Admin Reason: Physician Held Med Methadone HCl (Methadone Hcl 20 Mg/2 Ml Oral.Conc) 75 mg PO DAILY [facility] Last Admin: 08/12/23 08:06 Dose: 75 mg Documented By: JAIR Omeprazole (Omeprazole 20 Mg Capsule.) 20 mg PO BID@0630,1630 [facility] Last Admin: 08/13/23 05:20 Dose: 20 mg Documented By: DUANE Oxycodone HCl (Oxycodone Hcl Immed Release 5 Mg Tablet) 5 mg PO Q6H PRN PRN Reason: Pain, Severe (Pain Scale 7-10) Last Admin: 08/12/23 15:41 Dose: 5 mg Documented By: JAIR Pharmacy Consult (Consult Rx Vancomycin Dosing) 1 each MISCELLANE DAILY PRN PRN Reason: Consult order Quetiapine Fumarate (Quetiapine Fumarate 25 Mg Tablet) 25 mg PO BID PRN PRN Reason: anxiety Quetiapine Fumarate (Quetiapine Fumarate 300 Mg Tablet) 300 mg PO BEDTIME [facility] Last Admin: 08/12/23 21:55 Dose: 300 mg Documented By: REANNA Sertraline HCl (Sertraline Hcl 100 Mg Tablet) 100 mg PO DAILY [facility] Last Admin: 08/12/23 08:05 Dose: 100 mg Documented By: JAIR Sodium Chloride (0.9 % Sodium Chloride Flush 3 Ml Syringe) 3 ml IVFLUSH QSHIFT [facility] Last Admin: 08/12/23 21:57 Dose: 3 ml Documented By: REANNA Labs 08/13/23 05:52 08/13/23 05:52 Labs: Laboratory Results - last 24 hr 08/12/23 08/12/23 08/12/23 11:12 15:58 16:33 Hold Purple Top Estim Creat Clear Calc Estimated GFR POC Glucose 187 H 163 H Random Vancomycin 18.0 08/12/23 08/13/23 08/13/23 20:09 05:52 07:13 Hold Purple Top SEE NOTE Estim Creat Clear Calc 98.1 Estimated GFR > 60 POC Glucose 162 H 133 H Random Vancomycin Assessment and Plan (1) Hyperglycemia: Status: Acute (2) Diabetic infection of left foot: Status: Acute Plan 58/m with diabetes here with Diabetic foot ulcer, rule out acute osteomylitis -continue Vanco and Zosyn, -CT to further assess -vascular no intervention, continue Abx -ID --six weeks IV Ertapenem if cultures negative -request PICC line Sunday 08/13 Diabetic with hyperglycemia, A1 C > 12, likely non compliant with med as very good control here with less meds than home -continue Lantus at current dose, Metformin and sliding scale, hold glipizide HypONatremia--Pseudohyponatremia d/t high glucose, resolved Moderate persistent Asthma, no exacerbation. Bronchodilators PRN diabetic peripheral neuropathy--gabapentin Opioid use disorder--Methadone GERD Continue PPI Mood disorders--continue home meds HLD-statin DVT prophylaxis--lovenox need for inpt: diabetic foot ulcer, ruling out osteo, currently on IV Abx, further work up Quality Stroke Does the patient have a stroke diagnosis?: No VTE Prior VTE?: No VTE Risk Level:: Medical - moderate - high VTE Device Contraindication: Treatment Not Indicated VTE Drug Contraindication: N/A - Med Ordered
[2023-08-13] MEDS: Sertraline HCL 100 MG TABLET PO (08:22)
[2023-08-13] MEDS: Gabapentin 400 MG CAPSULE 800 MG PO ×3 (08:22→20:22)
[2023-08-13] MEDS: carvediloL 12.5 MG TABLET PO ×2 (08:22→20:23)
[2023-08-13] MEDS: Fenofibrate 160 MG TABLET PO (08:22)
[2023-08-13] MEDS: 0.9 % Sodium Chloride Flush 3 ML SYRINGE IVFLUSH ×3 (08:23→20:22)
[2023-08-13] MEDS: Fluticasone Propionate Nasal 16 GM SPRAY 2 SPRAY NOSTRIL-B (08:23)
[2023-08-13] MEDS: methADONE HCl 20 MG/2 ML ORAL.CONC 75 MG PO (08:23)
[2023-08-13 08:42] LABS: Anion Gap 17 (12-20)
[2023-08-13 08:43] LABS: Basophils Percent Auto 0.3 % (0-2); Eosinophils Absolute Auto 0.3 X10*3/uL (0.0-0.4); Hemoglobin 10.6 g/dl (14.0-18.0); Imm Gran Abs Auto 0.03 X10*3/uL (0.00-0.03); Imm Gran Pct Auto 0.4 % (0.0-0.4); Lymphocytes Absolute Auto 1.5 X10*3/uL (1.2-4.9); Lymphocytes Percent Auto 23.1 % (20-40); MANUAL DIFF FLAG SCAN; Mean Corpuscular HGB Conc 34.2 g/dl (31.0-36.0); Mean Corpuscular Hemoglobin 27.5 pg (27.0-33.0); Mean Corpuscular Volume 80.5 fL (80.0-98.0); Mean Platelet Volume 10.9 fL (9.4-12.4); Monocytes Absolute Auto 0.9 X10*3/uL (0.1-1.2); Monocytes Percent Auto 13.3 % (2-11); Neutrophils Absolute Auto 3.9 x10*3/uL (2.0-8.3); Neutrophils Percent Auto 58.9 % (45-73); PLT CLUMP 1; Red Blood Count 3.85 X10*6/uL (4.60-5.80); Red Cell Distribution Width 12.4 % (11.0-16.0); SCAN SMEAR FLAG 1
[2023-08-13 08:45] LABS: Blood Urea Nitrogen 16 mg/dL (9-16); Calcium 8.9 mg/dL (8.4-10.2); Carbon Dioxide 24 mmol/L (22-29); Chloride 99 mmol/L (96-108); Glucose Random 148 mg/dL (60-115); Potassium 3.9 mmol/L (3.3-5.1); Sodium 136 mmol/L (135-145)
[2023-08-13 09:06] LABS: White Blood Count 6.7 X10*3/uL (4.8-10.8)
[2023-08-13 09:07] LABS: Platelet Count 298 X10*3/uL (160-400); SLIDE REVIEW VERIFIED
[2023-08-13 11:29] LABS: Glucose, Whole Blood 234 mg/dL (60-115)
[2023-08-13] MEDS: Aspirin Enteric Coated 81 MG TABLET.DR PO (11:35)
[2023-08-13] MEDS: Insulin Lispro 100 UNIT/ML 3 ML VIAL SUBCUT ×3 (11:35→20:24)
[2023-08-13] MEDS: Loratadine 10 MG TABLET PO (11:35)
[2023-08-13 15:21] VITALS: BP 140/80; PULSE 70; RESP 18; TEMP 36.3; O2SAT 98
[2023-08-13 16:10] LABS: Glucose, Whole Blood 195 mg/dL (60-115)
[2023-08-13] MEDS: metFORMIN HCl 500 MG TABLET PO (16:15)
[2023-08-13] MEDS: Enoxaparin Sodium 40 MG/0.4 ML SYRINGE SUBCUT (16:16)
[2023-08-13 16:34] LABS: Vancomycin Random 10.2 mcg/mL (15-20)
[2023-08-13 19:00] VITALS: BP 162/88; PULSE 74; RESP 18; TEMP 36.2; O2SAT 97
[2023-08-13 19:58] LABS: Glucose, Whole Blood 207 mg/dL (60-115)
[2023-08-13 20:23] VITALS: BP 162/88; PULSE 89
[2023-08-13] MEDS: Amitriptyline HCl 50 MG TABLET PO (20:24)
[2023-08-13] MEDS: Atorvastatin Calcium 20 MG TABLET PO (20:24)
[2023-08-13] MEDS: Insulin Glargine,Hum.rec.anlog 100 UNIT/ML 10 ML VIAL 20 UNIT SUBCUT (20:24)
[2023-08-13] MEDS: Melatonin 3 MG TABLET 6 MG PO (20:29)
[2023-08-13] MEDS: QUEtiapine Fumarate 300 MG TABLET PO (20:30)
[2023-08-14 03:16] VITALS: BP 113/73; PULSE 60; RESP 16; TEMP 36.2; O2SAT 93
[2023-08-14] MEDS: Piperacillin Sodium/Tazobactam 3.375 GM in 0.9 % Sodium Chloride 50 ML IV (03:24)
[2023-08-14] MEDS: Omeprazole 20 MG CAPSULE.DR PO (05:44)
[2023-08-14] MEDS: vancomycin HCL 1,250 MG in 0.9 % Sodium Chloride 250 ML 166.67 MG IV (05:45)
[2023-08-14 06:24] LABS: Vancomycin Random 18.9 mcg/mL (15-20)
[2023-08-14 06:27] LABS: Creatinine Clr Calc Pharmacy 92.5; Estimated Glomerular Filt Rate > 60
[2023-08-14 07:28] LABS: Glucose, Whole Blood 142 mg/dL (60-115)
[2023-08-14 07:37] VITALS: BP 134/79; PULSE 71; RESP 16; TEMP 36.4; O2SAT 94
[2023-08-14] MEDS: Fluticasone/Vilanterol 200/25 BLST.W.DEV 1 PUFF INHALE (07:40)
[2023-08-14 07:41] VITALS: PULSE 79; RESP 18; O2SAT 96
--- NOTE | 2023-08-14 08:48 | HO.PM.IMPN ---
Subjective Subjective Date of Service: 08/14/23 Interval History: f/u on diabetic foot ulcer, concern for osteo no new issues, pain is controlled, awaiting PICC line Physical Exam Vital Signs: Vital Signs: Last Vital Signs Temp 97.5 F 08/14/23 07:37 Pulse 79 08/14/23 07:41 Resp 18 08/14/23 07:41 BP 134/79 08/14/23 07:37 Pulse Ox 94 08/14/23 07:37 O2 Del Method Room Air 08/14/23 07:37 BMI result Body Mass Index 29.1 General: AO X 3, no acute distress Resp: CTA bilateral CVS: S1,S2,RRR GI: +BS, NT, no distention Skin:unchanged Neuro: motor grossly intact Psych: appropriate affect Objective Data Active Medications Acetaminophen (Acetaminophen 325 Mg Tablet) 650 mg PO Q6H PRN PRN Reason: Pain, Mild (Pain Scale 1-3) Last Admin: 08/11/23 07:49 Dose: 650 mg Documented By: ZAKIYA Acetaminophen (Acetaminophen Supp 650 Mg Supp.Rect) 650 mg [place] Q6H PRN PRN Reason: Pain, Mild (Pain Scale 1-3) Albuterol Sulfate (Albuterol Sulfate 90 Mcg 8 Gm Inhaler) 2 puff INHALE QID PRN PRN Reason: Shortness Of Breath Albuterol/Ipratropium (Albuterol/Iprat 2.5/0.5mg 3 Ml Ampul.Neb) 3 ml INHALE QID PRN PRN Reason: Shortness Of Breath Amitriptyline HCl (Amitriptyline Hcl 50 Mg Tablet) 50 mg PO BEDTIME [facility] Last Admin: 08/13/23 20:24 Dose: 50 mg Documented By: GENESIS Aspirin (Aspirin Enteric Coated 81 Mg Tablet.) 81 mg PO DAILY@1200 [facility] Last Admin: 08/13/23 11:35 Dose: 81 mg Documented By: JAIR Atorvastatin Calcium (Atorvastatin Calcium 20 Mg Tablet) 20 mg PO BEDTIME [facility] Last Admin: 08/13/23 20:24 Dose: 20 mg Documented By: GENESIS Carvedilol (Carvedilol 12.5 Mg Tablet) 12.5 mg PO BID [facility]; Protocol Last Admin: 08/13/23 20:23 Dose: 12.5 mg Documented By: GENESIS Enoxaparin Sodium (Enoxaparin Sodium 40 Mg/0.4 Ml Syringe) 40 mg SUBCUT Q24H [facility] Last Admin: 08/13/23 16:16 Dose: 40 mg Documented By: JAIR Fenofibrate (Fenofibrate 160 Mg Tablet) 160 mg PO DAILY [facility] Last Admin: 08/13/23 08:22 Dose: 160 mg Documented By: JAIR Fluticasone Propionate (Fluticasone Propionate Nasal 16 Gm [place]) 2 spray NOSTRIL-B DAILY [facility] Last Admin: 08/13/23 08:23 Dose: 2 spray Documented By: JAIR Fluticasone/Vilanterol (Fluticasone/Vilanterol 200/25 Blst.W.Dev) 1 puff INHALE RDAILY [facility] Last Admin: 08/14/23 07:40 Dose: 1 puff Documented By: LIONEL Gabapentin (Gabapentin 400 Mg Capsule) 800 mg PO TID [facility] Last Admin: 08/13/23 20:22 Dose: 800 mg Documented By: GENESIS Glucose (Glucose Gel 15 Gm Gel..Gram.) 15 gm PO Q15M PRN; Protocol PRN Reason: per Hypoglycemia Standing Ord. Hydroxyzine HCl (Hydroxyzine Hcl 50 Mg Tablet) 50 mg PO TID PRN PRN Reason: Anxiety Last Admin: 08/12/23 15:41 Dose: 50 mg Documented By: JAIR Dextrose (D10) 250 mls @ 750 mls/hr IV Q15M PRN; Protocol PRN Reason: per Hypoglycemia Standing Ord. Vancomycin HCl 1,250 mg/ (Sodium Chloride) 250 mls @ 166.667 mls/hr IV Q12H [facility] Last Infusion: 08/14/23 07:39 Dose: Infused Documented By: TARAN Insulin Glargine (Insulin Glargine,Hum.Rec.Anlog 100 Unit/Ml 10 Ml Vial) 20 unit SUBCUT BEDTIME [facility] Last Admin: 08/13/23 20:24 Dose: 20 unit Documented By: GENESIS Insulin Human Lispro (Insulin Lispro 100 Unit/Ml 3 Ml Vial) 0 unit SUBCUT QIDACHS [facility]; Protocol Last Admin: 08/13/23 20:24 Dose: 4 unit Documented By: GENESIS Loratadine (Loratadine 10 Mg Tablet) 10 mg PO DAILY@1200 [facility] Last Admin: 08/13/23 11:35 Dose: 10 mg Documented By: JAIR Magnesium Hydroxide (Milk Of Magnesia 30 Ml Oral.Susp) 30 ml PO DAILY PRN PRN Reason: Constipation Melatonin (Melatonin 3 Mg Tablet) 6 mg PO BEDTIME PRN PRN Reason: Insomnia Last Admin: 08/13/23 20:29 Dose: 6 mg Documented By: GENESIS Metformin HCl (Metformin Hcl 500 Mg Tablet) 500 mg PO BIDWM [facility] Last Admin: 08/13/23 16:15 Dose: 500 mg Documented By: JAIR Methadone HCl (Methadone Hcl 20 Mg/2 Ml Oral.Conc) 75 mg PO DAILY [facility] Last Admin: 08/13/23 08:23 Dose: 75 mg Documented By: JAIR Omeprazole (Omeprazole 20 Mg Capsule.Dr) 20 mg PO BID@0630,1630 [facility] Last Admin: 08/14/23 05:44 Dose: 20 mg Documented By: GENESIS Oxycodone HCl (Oxycodone Hcl Immed Release 5 Mg Tablet) 5 mg PO Q6H PRN PRN Reason: Pain, Severe (Pain Scale 7-10) Last Admin: 08/12/23 15:41 Dose: 5 mg Documented By: JAIR Pharmacy Consult (Consult Rx Vancomycin Dosing) 1 each MISCELLANE DAILY PRN PRN Reason: Consult order Quetiapine Fumarate (Quetiapine Fumarate 25 Mg Tablet) 25 mg PO BID PRN PRN Reason: anxiety Quetiapine Fumarate (Quetiapine Fumarate 300 Mg Tablet) 300 mg PO BEDTIME [facility] Last Admin: 08/13/23 20:30 Dose: 300 mg Documented By: GENESIS Sertraline HCl (Sertraline Hcl 100 Mg Tablet) 100 mg PO DAILY [facility] Last Admin: 08/13/23 08:22 Dose: 100 mg Documented By: JAIR Sodium Chloride (0.9 % Sodium Chloride Flush 3 Ml Syringe) 3 ml IVFLUSH QSHIFT [facility] Last Admin: 08/13/23 20:22 Dose: 3 ml Documented By: GENESIS Labs 08/13/23 05:52 08/14/23 05:57 Labs: Laboratory Results - last 24 hr 08/13/23 08/13/2324 05:52 11:14 16:00 MCV 80.5 MCH 27.5 MCHC 34.2 RDW 12.4 Plt Count 298 MPV 10.9 Immature Gran % (Auto) 0.4 Neut % (Auto) 58.9 Lymph % (Auto) 23.1 [place] % (Auto) 13.3 H Eos % (Auto) 4.0 Baso % (Auto) 0.3 Lymph # (Auto) 1.5 [place] # (Auto) 0.9 Eos # (Auto) 0.3 Baso # (Auto) 0.0 Abs Immat Gran (auto) 0.03 Absolute Neuts (auto) 3.9 Absolute Nucleated RBC 0.000 Nucleated RBC % (auto) 0.0 Smear Tech's Comments VERIFIED Hold Purple Top Estim Creat Clear Calc Estimated GFR POC Glucose 234 H Random Vancomycin 10.2 L 08/13/23 08/13/23 08/14/23 16:02 19:52 05:57 MCV MCH MCHC RDW Plt Count MPV Immature Gran % (Auto) Neut % (Auto) Lymph % (Auto) [place] % (Auto) Eos % (Auto) Baso % (Auto) Lymph # (Auto) [place] # (Auto) Eos # (Auto) Baso # (Auto) Abs Immat Gran (auto) Absolute Neuts (auto) Absolute Nucleated RBC Nucleated RBC % (auto) Smear Tech's Comments Hold Purple Top SEE NOTE Estim Creat Clear Calc 92.5 Estimated GFR > 60 POC Glucose 195 H 207 H Random Vancomycin 18.9 08/14/23 07:13 MCV MCH MCHC RDW Plt Count MPV Immature Gran % (Auto) Neut % (Auto) Lymph % (Auto) [place] % (Auto) Eos % (Auto) Baso % (Auto) Lymph # (Auto) [place] # (Auto) Eos # (Auto) Baso # (Auto) Abs Immat Gran (auto) Absolute Neuts (auto) Absolute Nucleated RBC Nucleated RBC % (auto) Smear Tech's Comments Hold Purple Top Estim Creat Clear Calc Estimated GFR POC Glucose 142 H Random Vancomycin Assessment and Plan (1) Hyperglycemia: Status: Acute (2) Diabetic infection of left foot: Status: Acute Plan 58/m with diabetes here with Diabetic foot ulcer, rule out acute osteomylitis -continue Vanco and Zosyn, -CT show finding of bony destruction -vascular no intervention, continue Abx -ID --six weeks IV Ertapenem if cultures negative -request PICC line today and possibly home with VNA Diabetic with hyperglycemia, A1 C > 12, likely non compliant with med as very good control here with less meds than home -continue Lantus at current dose, Metformin and sliding scale, hold glipizide HypONatremia--Pseudohyponatremia d/t high glucose, resolved Moderate persistent Asthma, no exacerbation. Bronchodilators PRN diabetic peripheral neuropathy--gabapentin Opioid use disorder--Methadone GERD Continue PPI Mood disorders--continue home meds HLD-statin DVT prophylaxis--lovenox need for inpt: diabetic foot ulcer, ruling out osteo, currently on IV Abx, further work up Quality Stroke Does the patient have a stroke diagnosis?: No VTE Prior VTE?: No VTE Risk Level:: Medical - moderate - high VTE Device Contraindication: Treatment Not Indicated VTE Drug Contraindication: N/A - Med Ordered
[2023-08-14 09:07] VITALS: BP 134/74; PULSE 79
[2023-08-14] MEDS: metFORMIN HCl 500 MG TABLET PO (09:07)
[2023-08-14] MEDS: Sertraline HCL 100 MG TABLET PO (09:07)
[2023-08-14] MEDS: Fenofibrate 160 MG TABLET PO (09:07)
[2023-08-14] MEDS: Gabapentin 400 MG CAPSULE 800 MG PO ×2 (09:07→14:26)
[2023-08-14] MEDS: carvediloL 12.5 MG TABLET PO (09:07)
[2023-08-14] MEDS: methADONE HCl 20 MG/2 ML ORAL.CONC 75 MG PO (09:08)
[2023-08-14] MEDS: 0.9 % Sodium Chloride Flush 3 ML SYRINGE IVFLUSH (09:08)
--- NOTE | 2023-08-14 09:20 | MHC.CM.PN ---
Addendum entered by Miladis Henao 08/14/23 14:24: Patient is planned for a PICC >2pm in IR. Ertapenum will be given prior to PICC insertion. NA will provide Home services tomorrow. The services will be scheduled for the next dose of Ertapenum. The patient is planned for discharge later today. He will arrange for transport home. Addendum entered by Miladis Henao 08/14/23 11:24: Patient's Methadone was prescribed many years ago for Percocet replacement. IR will insert PICC line for discharge to home. Original Note: Patient with Cellulitis cultures pending. PMH Opiate use disorder. Patient is prescribed Methadone. His community Methadone dispensary is [facility] [place]. A referral has been sent to [facility] for LT IV ABX. [facility] dispensary and [facility]'s dispensary are both [facility]. NO GIANA is required. DP to [facility] for LT Ertapenum, pending cultures. Patient will transport via BLS at discharge.
[2023-08-14 11:27] LABS: Glucose, Whole Blood 268 mg/dL (60-115)
[2023-08-14] MEDS: Insulin Lispro 100 UNIT/ML 3 ML VIAL SUBCUT (11:43)
[2023-08-14] MEDS: Aspirin Enteric Coated 81 MG TABLET.DR PO (11:46)
[2023-08-14] MEDS: Loratadine 10 MG TABLET PO (11:46)
--- NOTE | 2023-08-14 14:05 | PM.DS ---
DS: Providers Provider Date of Service: 08/14/23 Date of admission: 08/09/23 15:24 Primary care physician: [facility] Consults: 08/10/23 11:09 Consult to Vascular Surgery Routine Consulting Provider: [facility] Vascular Services Reason for consultation: diabetic foot infecton 08/10/23 17:14 Consult to Wound Care Routine Reason for consultation: dm ulcer 08/11/23 09:34 Consult to Infectious Diseases Routine Consulting Provider: [facility] Infectious Disease Reason for consultation: infected foot Has provider been notified: No DS: Diagnosis Discharge Diagnosis (1) Hyperglycemia: Status: Acute (2) Diabetic infection of left foot: Status: Acute DS: Summary Hospital Course Hospital Course: admission hpi Chief Complaint: infected toe 58-year-old man with diabetes here with left second toe pain, swelling and redness that has been progressed very rapidly the last 5 days or so, however he notes that he had a crack in the toe about a month ago and may have had iritation from his shoe. He denies fever or chills. Xray of the foot show Absence of the distal tuft of the second digit distal phalanx. Joint space narrowing of the second digit PIP joint. There is subtle sclerosis of the second digit proximal phalanx. These changes may be related to localized infection. He has been given IV Zosyn and IV vancomycin. Additionally his blood sugar is found to be 578 however no acidosis or evidence of DKA; he claims that he is compliant with medications. Hemoglobin A1C is > 12, he has been given IV fluid boluses and repeat sugar is 368. hospital course: Diabetic foot ulcer, concern for osteomylitis as evident on imaging of xray and CT. He has been treated with Zosyn and Vancomycin while in the hospital. The foot was assess by Vascular surgery with no recommendation for intervention but rather IV antibiotics therapy. Blood cultures have been negative. Infectious disease expert recommend 6 weeks of IV ERtapenem via PICC line which is inserted today. Diabetic with hyperglycemia, A1 C > 12, likely non compliant with med as very good control here with muc less meds--At home he is on Lantus 45 units, sliding scale and Glipizide 10 mg twice. While here he is been getting Lantus 20 at night, sliding scale and glipizide has to be on hold due to blood sugars been controlled, fasting sugars has has been less than 150. At discharge will increase Lantus to 25 units, restart metformin 500 mg bid hold Glipizide due to potential hypotension HypONatremia--Pseudohyponatremia d/t high glucose, resolved Moderate persistent Asthma, no exacerbation. diabetic peripheral neuropathy--gabapentin Opioid use disorder--Methadone GERD Continue PPI Mood disorders--continue home meds HLD-statin Time Attestation Discharge Coordination Time (in mins): 45 Quality: Safe Use of Opioids Does Pt have an Active Cancer Diagnosis on the Problem List?: No Quality: Stroke Does the patient have a stroke diagnosis?: No Physical Exam Vital Signs: Vital Signs: Last Vital Signs Temp 97.5 F 08/14/23 07:37 Pulse 79 08/14/23 09:07 Resp 18 08/14/23 07:41 BP 134/74 08/14/23 09:07 Pulse Ox 94 08/14/23 07:37 O2 Del Method Room Air 08/14/23 07:37 BMI result Body Mass Index 29.1 DS: Data Data Completed and Pending Labs on day of discharge: Laboratory Results - last 24 hr 08/13/23 08/13/23 08/13/23 16:00 16:02 19:52 Hold Purple Top Creatinine Estim Creat Clear Calc Estimated GFR POC Glucose 195 H 207 H Random Vancomycin 10.2 L 08/14/23 08/14/23 08/14/23 05:57 07:13 11:17 Hold Purple Top SEE NOTE Creatinine 1.04 Estim Creat Clear Calc 92.5 Estimated GFR > 60 POC Glucose 142 H 268 H Random Vancomycin 18.9 Preliminary micro results at discharge 08/09/23 14:15 Blood Culture - Preliminary Blood - Venous No growth after 48 hours. 08/09/23 14:12 Blood Culture - Preliminary Blood - Venous No growth after 48 hours. Discharge Plan Discharge Anticipated Discharge Date/Time: 08/14/23 14:05 Patient Disposition: Home Health Service Discharge Diagnosis: Diabetic foot ulcer, osteomylitis, hyperglycemia Referrals: [facility] [Other] - 1 Week ([facility] will deliver your antibiotics) [facility] [Outside] - 1 Day ([facility] will call you to schedule nursing visits) [facility] [Primary Care Provider] - 1 Week Discharge Medications: New ertapenem 1 gram recon soln 1 g IV DAILY Qty: 41 0RF Rx Instructions: ending 07/25 Continued fluticasone propion-salmeterol 500-50 mcg/dose blister with device 1 ea inhalation BID Qty: 60 6RF quetiapine 25 mg tablet 25 mg PO BID PRN (Reason: anxiety) metformin 500 mg tablet 500 mg PO BIDWM carvedilol 12.5 mg tablet 12.5 mg PO BID ipratropium-albuterol 0.5 mg-3 mg(2.5 mg base)/3 mL solution for nebulization 3 ml inhalation QID PRN (Reason: Shortness Of Breath) quetiapine 300 mg tablet 300 mg PO BEDTIME sertraline 100 mg tablet 100 mg PO DAILY hydroxyzine pamoate 50 mg capsule 50 mg PO TID PRN (Reason: Anxiety) aspirin 81 mg tablet,delayed release (DR/EC) 81 mg PO DAILY@1200 amitriptyline 50 mg tablet 50 mg PO BEDTIME simvastatin 40 mg tablet 40 mg PO QPM gabapentin 800 mg tablet 800 mg PO TID omeprazole 20 mg capsule,delayed release(DR/EC) 20 mg PO BID@0630,1630 albuterol sulfate [Ventolin HFA] 90 mcg/actuation HFA aerosol inhaler 2 puff INHALATION QID PRN (Reason: Shortness Of Breath) fluticasone propionate 50 mcg/actuation spray,suspension 2 spray intranasal DAILY acetaminophen [Mapap (acetaminophen)] 500 mg capsule 500 mg PO Q8H PRN (Reason: Pain (Scale Score 1-3)) loratadine 10 mg tablet 10 mg PO DAILY@1200 insulin aspart U-100 [Novolog FlexPen U-100 Insulin] 100 unit/mL (3 mL) insulin pen See Protocol subcut TIDAC Protocol: Insulin Correction Scale Less than or equal to 110 ---- Give (units): 0 111 to 150 Give (units): 0 151 to 200 Give (units): 2 201 to 250 Give (units): 4 251 to 300 Give (units): 6 301 to 350 Give (units): 8 Greater than 350 Give (units): 10 Call MD if Blood Glucose > : 350 Rx Instructions: SLIDING SCALE 100-149=12 UNITS, 150-199=14 UNITS, 200-249=16 UNITS, 250-299=18 UNITS, 300 AND ABOVE-20 UNITS fenofibrate 160 mg tablet 160 mg PO DAILY methadone [Methadone Intensol] 10 mg/mL Concentrate 75 mg PO DAILY Changed insulin glargine [Lantus Solostar U-100 Insulin] 100 unit/mL (3 mL) insulin pen 25 unit subcut BEDTIME Qty: 15 0RF Discontinued glipizide 10 mg tablet 10 mg PO BIDAC Discharge Orders: Discharge Order (Routine); Ordered 08/14/23 Ordered By: Giovanni Vázquez Diet: Diabetic diet Activity on Discharge: As tolerated Stand Alone Forms: Patient Portal Discharge page Print Language: Romansh Care Plan Goals: goal is to promote wound healing, prevent infection, and ultimately prevent complications such as amputation, conrolling blood glucose Health Concerns: uncontrolled diabetes diaetes foot ulcers, cannot exclude osteomylitis Plan of Treatment: Invanz antibiotic 1 gram IV daily for 6 weeks or 42 dose, ending September 25 2023 antibiotics to be supervised by visiting nursing service follow up with your Doctor in a week wound care orders 1. Turn and Reposition every 2 hours and as needed for patient comfort.? Use pillows or wedges to support off loading positions. 2. Off Load all bony prominences with use of pillows and heel boots if needed.? Apply Preventative foams where needed. ? 3. Monitor for incontinence and moisture control, use barrier creams when needed for prevention and treatment. 4. Provide adequate and supplemental nutrition.? 5. Order or Continue low air loss mattress. 6. When applicable maintain blood glucose levels per Providers order. 7. Right 2nd Toe - [place] with Betadine allow to air dry. Daily 8. Left 2nd Toe - Cleanse with NS wound wash, pat dry. Apply cut to size Durafiber AG cover with dry gauze and wrap. Change every other day. Assessment: see above
[2023-08-14] MEDS: Ertapenem Sodium 1 GM in 0.9 % Sodium Chloride 50 ML IV (14:23)
[2023-08-14] MEDS: Enoxaparin Sodium 40 MG/0.4 ML SYRINGE SUBCUT (14:26)
[2023-08-14 15:17] VITALS: BP 130/71; PULSE 81; RESP 18; TEMP 36.4; O2SAT 95
--- NOTE | 2023-08-14 16:07 | MHC.CM.PN ---
amb booked to take pt home t 630 auth receive from formerly [facility]
--- NOTE | 2023-08-14 16:09 | MHC.CM.PN ---
[facility] and [facility] aware of dc. BLS transportation booked for 183. RN aware. Per [facility], CM sent request to MD for face to face and wound care orders in dc summary.
--- NOTE | 2023-08-14 16:25 | P.F2F_ITS ---
Service Date Service Date: 08/14/23 Encounter Date of encounter: 08/14/23 Reasons for Services Signs and symptoms assessed: Diabetic foot ulcer Reason for retirement: wound care Homebound: Leaving the home is medically contraindicated at this time without the asist of a device and/or another person due th the listed conditions above and below. Reason homebound: pain with ambulation Homebound supporting statement: homebound due to pain with ambulation due to diabetic feet ulcers and therefore needs the assitance of another person Certification: Based on the above findings, I certify that this patient is confined to the home and needs intermittent retirement care, physical therapy and/or speech therapy, or continues to need occupational therapy. The patient is under my care, and I have initiated the establishment of the plan of care. The patient will be followed by a physician who will periodically review the plan of care. Time Spent With Patient Time: Total time managing care of this patient today ____ minutes.
--- NOTE | 2023-08-14 17:23 | HO.PICC ---
PICC Line Insertion NPICC INSERTION Diagnosis: OSTEOMYLITIS Indication: CORRECTION ANTIBX Pertinent Labs: REVIEWED Technique: Following informed consent including risks, benefits and alternatives and using sterile technique including cap and mask, sterile gown, glove and drape, the LEFT arm was prepped and draped in the usual sterile fashion of full barrier technique with [facility]. Following completion of [place] Protocol the skin and soft tissues were anesthetized with 1% Lidocaine plain. Using ultrasound guidance, LEFT BASILIC vein access was obtained. Over an 0.018 wire through peel-away sheath, a 4 FR SINGLE LUMEN POWERPICC SOLO line was positioned. Catheter length is 48CM internal length, OCM external length, for a total trimmed length of 48CM. The procedure was performed in RM 272. Tip verification was performed by [place]ay with Chilo 3CG. Tip located in SVC. Ultrasound was used to document vein patency and for needle entry. A formal ultrasound picture and cardiac rhythm strip was recorded. Vascular Business Support Liaison has released the line for use and it is currently dressed with a StatLock, Tegaderm, and CHG disc. Verification has been performed for blood return and line patency. Arm Circumference: 27.5CM Equipment: BARD SINGLE LUMEN PASV POWERPICC CATHETER Catheter Type: 4FR SINGLE LUMEN PASV POWERPICC SOLO Lot #: [id number]
[2023-08-14 17:36] VITALS: BP 152/72; PULSE 78; RESP 18; TEMP 36.6; O2SAT 95
[2023-08-14 17:38] LABS: Glucose, Whole Blood 124 mg/dL (60-115)
== END 2023-08-14 18:42 | disposition home health service (06) | DRG 638 ==
LOC: HO.ED 14:35 → HO.EDOVER 15:31 → HO.S3 08-10 07:49 → HO.EDOVER 08-10 10:30 → HO.S3 08-10 15:42
PROVIDERS: Physician Assistant Medical; Admitting Provider Internal Medicine; Emergency Provider Emergency Medicine; Visit Provider Internal Medicine
DX: E11.69 Type 2 diabetes mellitus with other specified complication (principal); F11.20 Opioid dependence, uncomplicated; M86.172 Other acute osteomyelitis, left ankle and foot; E11.621 Type 2 diabetes mellitus with foot ulcer; L97.529 Non-pressure chronic ulcer of other part of left foot with unspecified severity; L97.519 Non-pressure chronic ulcer of other part of right foot with unspecified severity; K21.9 Gastro-esophageal reflux disease without esophagitis; E11.42 Type 2 diabetes mellitus with diabetic polyneuropathy; J45.40 Moderate persistent asthma, uncomplicated; E11.65 Type 2 diabetes mellitus with hyperglycemia; Z91.148 Patient's other noncompliance with medication regimen for other reason; Z79.4 Long term (current) use of insulin; Z79.82 Long term (current) use of aspirin; Z79.84 Long term (current) use of oral hypoglycemic drugs; Z79.899 Other long term (current) drug therapy
CPT/HCPCS: 36415; 36573; 73610; 73630; 73701; 80048; 80053; 80202; 81001; 82010; 82565; 82803; 82947; 83036; 83605; 83735; 83930; 85025; 86140; 87040; 94640; 99285; C1751; J1335; J1650; J2543; J3370; J3371; Q9967

== ENCOUNTER → 2023-08-09 15:24 | Outpatient (BNV) | payer OTHER, SELFPAY | PROVIDERS: Admitting Provider Internal Medicine; Emergency Provider Emergency Medicine; Visit Provider Internal Medicine | DX: L97.909 Non-pressure chronic ulcer of unspecified part of unspecified lower leg with unspecified severity (principal); R73.9 Hyperglycemia, unspecified; E11.628 Type 2 diabetes mellitus with other skin complications; L08.9 Local infection of the skin and subcutaneous tissue, unspecified | CPT/HCPCS: 99222 ==

== ENCOUNTER → 2023-08-09 15:24 | Outpatient (BNV) | payer OTHER, SELFPAY | PROVIDERS: Admitting Provider Internal Medicine; Emergency Provider Emergency Medicine; Visit Provider Internal Medicine | DX: E11.65 Type 2 diabetes mellitus with hyperglycemia (principal); E11.621 Type 2 diabetes mellitus with foot ulcer; L08.9 Local infection of the skin and subcutaneous tissue, unspecified | CPT/HCPCS: 99223; 99232; 99239; 99499; G0180 ==

== ENCOUNTER → 2023-08-09 15:24 | Outpatient (BNV) | payer OTHER, SELFPAY | PROVIDERS: Admitting Provider Internal Medicine; Emergency Provider Emergency Medicine; Visit Provider Surgery Vascular Surgery | DX: L97.909 Non-pressure chronic ulcer of unspecified part of unspecified lower leg with unspecified severity (principal) | CPT/HCPCS: 99222 ==

== ENCOUNTER 2023-08-17 15:01 | Outpatient (REF) | payer OTHER, SELFPAY ==
[2023-08-17 15:09] LABS: MANUAL DIFF FLAG NO
[2023-08-17 15:21] LABS: Basophils Absolute Auto 0.1 X10*3/uL (0.0-0.2); Eosinophils Absolute Auto 0.3 X10*3/uL (0.0-0.4); Eosinophils Percent Auto 3.8 % (0-4); Hematocrit 35.5 % (42.0-52.0); Hemoglobin 11.8 g/dl (14.0-18.0); Imm Gran Abs Auto 0.05 X10*3/uL (0.00-0.03); Imm Gran Pct Auto 0.7 % (0.0-0.4); Lymphocytes Absolute Auto 2.4 X10*3/uL (1.2-4.9); Lymphocytes Percent Auto 32.7 % (20-40); Mean Corpuscular HGB Conc 33.2 g/dl (31.0-36.0); Mean Corpuscular Hemoglobin 27.2 pg (27.0-33.0); Mean Corpuscular Volume 81.8 fL (80.0-98.0); Mean Platelet Volume 10.6 fL (9.4-12.4); Monocytes Absolute Auto 0.9 X10*3/uL (0.1-1.2); Neutrophils Absolute Auto 3.7 x10*3/uL (2.0-8.3); Neutrophils Percent Auto 49.8 % (45-73); Platelet Count 361 X10*3/uL (160-400); Red Blood Count 4.34 X10*6/uL (4.60-5.80); Red Cell Distribution Width 12.8 % (11.0-16.0); White Blood Count 7.3 X10*3/uL (4.8-10.8)
[2023-08-17 15:50] LABS: Anion Gap 17 (12-20); Blood Urea Nitrogen 16 mg/dL (9-16); Calcium 9.4 mg/dL (8.4-10.2); Carbon Dioxide 25 mmol/L (22-29); Chloride 100 mmol/L (96-108); Estimated Glomerular Filt Rate > 60; Glucose Random 97 mg/dL (60-115); Potassium 4.7 mmol/L (3.3-5.1); Sodium 137 mmol/L (135-145)
== END 2023-08-17 15:02 | disposition home or self-care (01) ==
LOC: HO.HVNA 15:01
PROVIDERS: Visit Provider Internal Medicine
DX: E11.621 Type 2 diabetes mellitus with foot ulcer (principal); M86.9 Osteomyelitis, unspecified
CPT/HCPCS: 36415; 80048; 85025

== ENCOUNTER 2023-08-23 15:00 | Outpatient (REF) | payer OTHER, SELFPAY ==
[2023-08-23 15:05] LABS: MANUAL DIFF FLAG NO
[2023-08-23 15:13] LABS: Basophils Absolute Auto 0.1 X10*3/uL (0.0-0.2); Basophils Percent Auto 1.1 % (0-2); Eosinophils Absolute Auto 0.2 X10*3/uL (0.0-0.4); Eosinophils Percent Auto 2.5 % (0-4); Hematocrit 33.2 % (42.0-52.0); Hemoglobin 10.9 g/dl (14.0-18.0); Imm Gran Abs Auto 0.02 X10*3/uL (0.00-0.03); Imm Gran Pct Auto 0.3 % (0.0-0.4); Lymphocytes Absolute Auto 2.3 X10*3/uL (1.2-4.9); Lymphocytes Percent Auto 35.9 % (20-40); Mean Corpuscular HGB Conc 32.8 g/dl (31.0-36.0); Mean Corpuscular Hemoglobin 27.1 pg (27.0-33.0); Mean Corpuscular Volume 82.6 fL (80.0-98.0); Mean Platelet Volume 11.1 fL (9.4-12.4); Monocytes Absolute Auto 0.7 X10*3/uL (0.1-1.2); Monocytes Percent Auto 10.1 % (2-11); Neutrophils Absolute Auto 3.2 x10*3/uL (2.0-8.3); Neutrophils Percent Auto 50.1 % (45-73); Platelet Count 292 X10*3/uL (160-400); Red Blood Count 4.02 X10*6/uL (4.60-5.80); Red Cell Distribution Width 13.2 % (11.0-16.0); White Blood Count 6.4 X10*3/uL (4.8-10.8)
[2023-08-23 17:47] LABS: Anion Gap 12 (12-20); Blood Urea Nitrogen 18 mg/dL (9-16); Calcium 9.3 mg/dL (8.4-10.2); Carbon Dioxide 28 mmol/L (22-29); Chloride 101 mmol/L (96-108); Estimated Glomerular Filt Rate > 60; Glucose Random 61 mg/dL (60-115); Potassium 4.3 mmol/L (3.3-5.1); Sodium 137 mmol/L (135-145)
== END 2023-08-23 15:01 | disposition home or self-care (01) ==
LOC: HO.HVNA 15:00
PROVIDERS: Visit Provider Internal Medicine
DX: Z45.2 Encounter for adjustment and management of vascular access device (principal); M86.172 Other acute osteomyelitis, left ankle and foot; L97.528 Non-pressure chronic ulcer of other part of left foot with other specified severity
CPT/HCPCS: 36415; 80048; 85025

== ENCOUNTER 2023-08-29 14:12 | Outpatient (REF) | payer OTHER, SELFPAY ==
[2023-08-29 14:15] LABS: MANUAL DIFF FLAG NO
[2023-08-29 14:20] LABS: Basophils Absolute Auto 0.1 X10*3/uL (0.0-0.2); Basophils Percent Auto 0.5 % (0-2); Eosinophils Absolute Auto 0.2 X10*3/uL (0.0-0.4); Eosinophils Percent Auto 2.6 % (0-4); Hematocrit 33.7 % (42.0-52.0); Imm Gran Abs Auto 0.03 X10*3/uL (0.00-0.03); Imm Gran Pct Auto 0.3 % (0.0-0.4); Lymphocytes Absolute Auto 1.8 X10*3/uL (1.2-4.9); Mean Corpuscular HGB Conc 32.6 g/dl (31.0-36.0); Mean Corpuscular Volume 82.8 fL (80.0-98.0); Mean Platelet Volume 11.2 fL (9.4-12.4); Monocytes Absolute Auto 0.8 X10*3/uL (0.1-1.2); Monocytes Percent Auto 8.8 % (2-11); Neutrophils Absolute Auto 6.2 x10*3/uL (2.0-8.3); Neutrophils Percent Auto 67.8 % (45-73); Platelet Count 278 X10*3/uL (160-400); Red Blood Count 4.07 X10*6/uL (4.60-5.80); Red Cell Distribution Width 13.5 % (11.0-16.0); White Blood Count 9.1 X10*3/uL (4.8-10.8)
[2023-08-29 15:38] LABS: Anion Gap 12 (12-20); Blood Urea Nitrogen 16 mg/dL (9-16); Calcium 9.3 mg/dL (8.4-10.2); Carbon Dioxide 28 mmol/L (22-29); Chloride 99 mmol/L (96-108); Estimated Glomerular Filt Rate > 60; Glucose Random 284 mg/dL (60-115); Potassium 4.7 mmol/L (3.3-5.1); Sodium 134 mmol/L (135-145)
== END 2023-08-29 14:13 | disposition home or self-care (01) ==
LOC: HO.HVNA 14:12
PROVIDERS: Visit Provider Internal Medicine
DX: M86.172 Other acute osteomyelitis, left ankle and foot (principal)
CPT/HCPCS: 36415; 80048; 85025

== ENCOUNTER 2023-09-03 14:39 | Emergency (ER) | payer OTHER, SELFPAY ==
[2023-09-03 15:47] VITALS: BP 109/62; PULSE 84; RESP 18; TEMP 36.4; O2SAT 96; BMI 29.7
--- NOTE | 2023-09-03 15:51 | ED_ITS ---
HPI - General Adult General Chief complaint: General Medical Stated complaint: Pulled out PICC line Time Seen by Provider: 09/03/23 18:30 Source: patient Mode of arrival: ambulatory Limitations: no limitations History of Present Illness ED Provider: Escobar Parker PA-C HPI narrative: 58 yold presently with osetoemylities presenting to the ED becuase the PICC line he believes is coming out. patient states no other complaints. patient states last anitbiotics dose was yesterday. Related Data Home Medications ?Medication ?Instructions ?Recorded ?Confirmed acetaminophen 500 mg capsule 500 mg PO Q8H PRN Pain (Scale 10/17/22 08/09/23 (Mapap (acetaminophen)) Score 1-3) albuterol sulfate 90 mcg/actuation 2 puff inhalation QID PRN 10/17/22 08/09/23 aerosol inhaler (Ventolin HFA) Shortness Of Breath amitriptyline 50 mg tablet 50 mg PO BEDTIME 10/17/22 08/09/23 aspirin 81 mg tablet,delayed 81 mg PO DAILY@1200 10/17/22 08/09/23 release carvedilol 12.5 mg tablet 12.5 mg PO BID 10/17/22 08/09/23 fenofibrate 160 mg tablet 160 mg PO DAILY 10/17/22 08/09/23 fluticasone propionate 50 2 spray intranasal DAILY 10/17/22 08/09/23 mcg/actuation nasal spray,suspension gabapentin 800 mg tablet 800 mg PO TID 10/17/22 08/09/23 glipizide 10 mg tablet 10 mg PO BIDAC 10/17/22 08/09/23 hydroxyzine pamoate 50 mg capsule 50 mg PO TID PRN Anxiety 10/17/22 08/09/23 insulin aspart U-100 100 unit/mL See Protocol subcut TIDAC 10/17/22 08/09/23 (3 mL) subcutaneous pen (Novolog FlexPen U-100 Insulin aspart) ipratropium 0.5 mg-albuterol 3 mg 3 ml inhalation QID PRN Shortness 10/17/22 08/09/23 (2.5 mg base)/3 mL nebulization Of Breath soln loratadine 10 mg tablet 10 mg PO DAILY@1200 10/17/22 08/09/23 metformin 500 mg tablet 500 mg PO BIDWM 10/17/22 08/09/23 omeprazole 20 mg capsule,delayed 20 mg PO BID@0630,1630 10/17/22 08/09/23 release quetiapine 25 mg tablet 25 mg PO BID PRN anxiety 10/17/22 08/09/23 quetiapine 300 mg tablet 300 mg PO BEDTIME 10/17/22 08/09/23 sertraline 100 mg tablet 100 mg PO DAILY 10/17/22 08/09/23 simvastatin 40 mg tablet 40 mg PO QPM 10/17/22 08/09/23 methadone 10 mg/mL oral 75 mg PO DAILY 10/18/22 08/12/23 concentrate (Methadone Intensol) Previous Rx's ?Medication ?Instructions ?Recorded fluticasone 500 mcg-salmeterol 50 1 ea inhalation BID #60 caps 06/23/21 mcg/dose blistr powdr for inhalation ertapenem 1 gram solution for 1 g IV DAILY #41 ea 08/14/23 injection insulin glargine 100 unit/mL (3 25 unit (0.25 mL) subcut BEDTIME 08/14/23 mL) subcutaneous pen (Lantus #15 mL Solostar U-100 Insulin) Allergies Allergy/AdvReac Type Severity Reaction Status Date / Time bee pollen [BEE STINGS] Allergy Severe THROAT Verified 09/03/23 15:49 SWELLING raspberry [RASPBERRY] Allergy Severe UNKNOWN Verified 09/03/23 15:49 tadalafil [From CIALIS] Allergy Severe ANAPHYLAXIS Verified 09/03/23 15:49 wool Allergy Intermediate RASH Verified 09/03/23 15:49 Review of Systems 2 Review of Systems: PICC line almost coming out Yes all other systems are reviewed and are negative [facility] Past Medical History Medical History (Updated 09/04/23 @ 00:00 by Background Dankechi) Diarrhea Moderate persistent asthma Depression Anxiety GERD (gastroesophageal reflux disease) Diabetes Asthma Substance abuse Surgical History No pertinent past surgical history Family History Family History Father Diabetes mellitus Alcohol abuse Social History Social History Household Members: Family Housing: House Do you presently have visiting nurse or other home services: No Unable to assess alcohol history related to: Unable to respond and Unknown Patient Tobacco Use Status: Never used Tobacco Substance Use Type: Marijuana Advance Directives: No Advance Directives Information Provided: No service: No Physical Exam ED Vital Signs: Vital Signs - 24 hr 09/03/23 15:47 09/03/23 18:23 09/03/23 19:50 Temperature 97.5 F 98.2 F 98.2 F Pulse Rate 84 82 82 Respiratory Rate 18 16 16 Blood Pressure 109/62 121/76 121/76 Pulse Oximetry 96 98 98 Oxygen Delivery Method Room Air Room Air Room Air BMI result Body Mass Index 29.7 Const General: cooperative, healthy appearing, comfortable, no acute distress, well developed, alert, awake and Physically active Orientation/consciousness: oriented to person, oriented to place, oriented to time and patient oriented x3 HENMT Head: Yes normal to inspection, Yes No palpable skull fracture present, Yes normocephalic and Yes atraumatic Eyes General: appearance normal, both eyes and all related structures Neck Neck: Yes normal visual inspection, Yes full ROM, Yes no lymphadenopathy, Yes no meningeal signs, Yes trachea midline, Yes supple, No anterior neck swelling and No tender Chest Chest palpation & inspection: normal inspection of the chest and normal palpation of entire chest wall Resp Effort & Inspection: normal respiratory effort and able to speak in complete sentences Auscultation: clear to auscultation bilaterally Cardio Jugular venous distension: no JVD Heart sounds: S1 normal heart sound present and S2 normal heart sound present GI Inspection: Yes normal to inspection and No abdominal wall ecchymosis Palpation (GI): Soft to palpation, not firm, nontender, no guarding and not rigid General: Yes no CVA tenderness Back/Spine/Pelvis Back: no CVA tenderness and No back tenderness Skin General skin exam: no rashes or lesions noted, elasticity normal and turgor normal Neuro General: oriented to person, oriented to place, oriented to time, patient oriented x3, gait normal, tone normal, moves all extremities, Normal light touch and pain sensation, no meningeal signs, no focal motor deficits, CN's II-XI intact bilaterally and normal sensation to monofilament Extrem General: Yes normal to inspection, Yes full ROM and Yes capillary refill normal Shoulder/upper arm images: 2 1. PICC line is present and extra coiled pICC line coming out. negative redness, pus discharge, ecchymosis, swelling, or deformity. motor, neuro, and vascular exam is intact. Psych Appearance: grossly normal, well kempt and not disheveled Course Course Course Narrative: RME: RME: Done by SYLVIA Parker. 58-year-old male presents to the ED due to PICC line almost coming out. Patient states no complaints. PICC slight coming out of arm. Arm is in wrap. patient to be seen in the ED. Medications Administered Discontinued Medications Generic Name Dose Route Start Last Admin Trade Name Freq PRN Reason Stop Dose Admin Ertapenem 1 gm/ Sodium 50 mls @ 100 mls/hr 09/03/23 18:38 09/03/23 19:27 Chloride IV 09/03/23 19:07 Infused ONCE ONE Infusion Medical Decision Making Medical Decision Making MDM Narrative: 58 yold male presents to the ED for PICC line almost coming out. patient last had dose yesterday of antiobitics yesterday. Patient not in distress. patient given one does ertapenem. Spoke with Corporate Travel Agent who of radiodlogy who discuss with IR and gave us IR radiology number for patient to call in the morning so they can tell patient what time to come in in the morning to have PICC line readdjusted. PICC line was taped and wrapeed secure on patient arm ( left) and informed to return to the ED. Patient explained worrisome signs and informed to return to the ED. not suspecting DVT, fracture, cellulitis, comparmtnet syndrome, or septic joint. Differential Diagnosis Differential Diagnoses: The differential diagnosis associated with the presentation includes (PICC line misplacement) Admission/Observation Consideration of admission/observation: Escalation of care including admission/observation considered Independent Historian Clinical information obtained from an independent historian. History obtained from or confirmed by: Other (patient) External Record Review External record reviewed: Other (prior visits) Prescription Management I considered prescription management with: Other Discharge Plan Discharge Clinical Impression: PIC line (peripherally inserted central catheter) flush Patient Disposition: Home, Self-Care Instructions: How to Care for Your PICC (Peripherally Inserted Central Catheter) (ED) Additional Instructions: Recommend Calling Interventional Radiology Office tomorrow morning to critical access hospital for tomorrow. [place] is [phone]. Return to the ED immeidatley for any redness, swelling, pus discharge, foul odor, severe pain, or any other concerning symptoms. Prescriptions: No Action fluticasone propion-salmeterol 500-50 mcg/dose blister with device 1 ea inhalation BID Qty: 60 6RF quetiapine 25 mg tablet 25 mg PO BID PRN (Reason: anxiety) metformin 500 mg tablet 500 mg PO BIDWM carvedilol 12.5 mg tablet 12.5 mg PO BID ipratropium-albuterol 0.5 mg-3 mg(2.5 mg base)/3 mL solution for nebulization 3 ml inhalation QID PRN (Reason: Shortness Of Breath) quetiapine 300 mg tablet 300 mg PO BEDTIME glipizide 10 mg tablet 10 mg PO BIDAC sertraline 100 mg tablet 100 mg PO DAILY hydroxyzine pamoate 50 mg capsule 50 mg PO TID PRN (Reason: Anxiety) aspirin 81 mg tablet,delayed release (DR/EC) 81 mg PO DAILY@1200 amitriptyline 50 mg tablet 50 mg PO BEDTIME simvastatin 40 mg tablet 40 mg PO QPM gabapentin 800 mg tablet 800 mg PO TID omeprazole 20 mg capsule,delayed release(DR/EC) 20 mg PO BID@0630,1630 albuterol sulfate [Ventolin HFA] 90 mcg/actuation HFA aerosol inhaler 2 puff INHALATION QID PRN (Reason: Shortness Of Breath) fluticasone propionate 50 mcg/actuation spray,suspension 2 spray intranasal DAILY acetaminophen [Mapap (acetaminophen)] 500 mg capsule 500 mg PO Q8H PRN (Reason: Pain (Scale Score 1-3)) loratadine 10 mg tablet 10 mg PO DAILY@1200 insulin aspart U-100 [Novolog FlexPen U-100 Insulin] 100 unit/mL (3 mL) insulin pen See Protocol subcut TIDAC Protocol: Insulin Correction Scale Less than or equal to 110 ---- Give (units): 0 111 to 150 Give (units): 0 151 to 200 Give (units): 2 201 to 250 Give (units): 4 251 to 300 Give (units): 6 301 to 350 Give (units): 8 Greater than 350 Give (units): 10 Call MD if Blood Glucose > : 350 Rx Instructions: SLIDING SCALE 100-149=12 UNITS, 150-199=14 UNITS, 200-249=16 UNITS, 250- 299=18 UNITS, 300 AND ABOVE-20 UNITS fenofibrate 160 mg tablet 160 mg PO DAILY methadone [Methadone Intensol] 10 mg/mL Concentrate 75 mg PO DAILY insulin glargine [Lantus Solostar U-100 Insulin] 100 unit/mL (3 mL) insulin pen 25 unit subcut BEDTIME Qty: 15 0RF ertapenem 1 gram recon soln 1 g IV DAILY Qty: 41 0RF Rx Instructions: ending 07/25 Interventions: ED Discharge Assessment Last Done: 09/03/23 19:50 Discharge Date/Time: 09/03/23 19:50 Print Language: Irish
[2023-09-03 18:23] VITALS: BP 121/76; PULSE 82; RESP 16; TEMP 36.8; O2SAT 98
[2023-09-03] MEDS: Ertapenem Sodium 1 GM in 0.9 % Sodium Chloride 50 ML IV (18:48)
--- NOTE | 2023-09-03 19:27 | PC.NURSE ---
picc line secured with tape and gauze
[2023-09-03 19:50] VITALS: BP 121/76; PULSE 82; RESP 16; TEMP 36.8; O2SAT 98
--- OUTSIDE RECORDS SUMMARY | 2023-09-08 09:00 | XMS_ITS | Patient Health Record ---
Author Organization [facility] Address [address], [place] [id number] Support Name Relationship Address Phone Mckinley Berry Guarantor Unknown [phone] ALLERGIES Allergen (clinical drug ingredient) Drug/Non Drug [...] Insured Coverage Start Date Coverage End Date [facility] [address] [place] [phone] [id number] Mckinley Berry Self - patient is the insured MEDICAL (GENERAL) HISTORY Medical History History ICD Code Smoker Asthma Diabetes HBP High Cholesterol Hospitalization History Reason Date(Month/Year) History of 2 Heart Attacks not recently
== END 2023-09-03 19:50 | disposition home or self-care (01) ==
PROVIDERS: Emergency Provider Emergency Medicine
DX: Z45.2 Encounter for adjustment and management of vascular access device (principal)
CPT/HCPCS: 96365; 99284; J1335

== ENCOUNTER 2023-09-06 15:35 | Emergency (ER) | payer OTHER, SELFPAY ==
--- NOTE | ~2023-09-06 | XR_ITS ---
EXAMINATION: XR CHEST CLINICAL INFORMATION: PICC line COMPARISON: Previous chest x-ray from earlier the same day TECHNIQUE: 1 view of the chest was obtained. FINDINGS: There is a new right upper extremity PICC line with tip projecting over the cavoatrial junction. The cardiac and mediastinal contours are normal. The lungs are clear. No pleural effusion or pneumothorax. XR/XR chest 1V IMPRESSION: PICC line tip projects over cavoatrial junction.
--- NOTE | ~2023-09-06 | XR_ITS ---
EXAMINATION: XR CHEST CLINICAL INFORMATION: PICC line fell out . COMPARISON: CTA chest 10/17/2022. Chest radiograph 10/17/2022. TECHNIQUE: 2 views of the chest were obtained. FINDINGS: No evidence of a PICC line. Normal appearance of the cardiomediastinal silhouette. No focal airspace opacities, pleural effusion or pneumothorax. No acute osseous findings. XR/XR chest 2V IMPRESSION: 1. No evidence of a PICC line. 2. No acute cardiopulmonary findings.
[2023-09-06 15:40] VITALS: BP 103/68; PULSE 75; RESP 18; TEMP 36.5; O2SAT 95; BMI 28.7
--- NOTE | 2023-09-06 15:40 | ED.GENADULT ---
HPI - General Adult General Chief complaint: General Medical Stated complaint: PICC line fell out Time Seen by Provider: 09/06/23 16:22 Source: patient Mode of arrival: ambulatory Limitations: no limitations History of Present Illness ED Provider: Riri DANIELS HPI narrative: 58-year-old male history of diabetes poorly controlled, anxiety, asthma, substance abuse, anxiety, depression, asthma, GERD presenting to the emergency department stating that his PICC line was accidentally pulled out today by him at night , it was in his left upper extremity, he states he has not had antibiotics for the past 2 days as he has not been able to contact IR and has just not been able to get them. He reports prior to the past two days he was on them for a couple weeks and states i think i was supposed to have them for 3 or 4 more weeks. Patient reports he is on antibiotics for infection in the bone. Denies fevers, chills, numbness, tingling, chest pain, shortness of breath, nausea, vomiting, abdominal pain, headache, vision changes weakness Related Data Home Medications ?Medication ?Instructions ?Recorded ?Confirmed acetaminophen 500 mg capsule 500 mg PO Q8H PRN Pain (Scale 10/17/22 08/09/23 (Mapap (acetaminophen)) Score 1-3) albuterol sulfate 90 mcg/actuation 2 puff inhalation QID PRN 10/17/22 08/09/23 aerosol inhaler (Ventolin HFA) Shortness Of Breath amitriptyline 50 mg tablet 50 mg PO BEDTIME 10/17/22 08/09/23 aspirin 81 mg tablet,delayed 81 mg PO DAILY@1200 10/17/22 08/09/23 release carvedilol 12.5 mg tablet 12.5 mg PO BID 10/17/22 08/09/23 fenofibrate 160 mg tablet 160 mg PO DAILY 10/17/22 08/09/23 fluticasone propionate 50 2 spray intranasal DAILY 10/17/22 08/09/23 mcg/actuation nasal spray,suspension gabapentin 800 mg tablet 800 mg PO TID 10/17/22 08/09/23 glipizide 10 mg tablet 10 mg PO BIDAC 10/17/22 08/09/23 hydroxyzine pamoate 50 mg capsule 50 mg PO TID PRN Anxiety 10/17/22 08/09/23 insulin aspart U-100 100 unit/mL See Protocol subcut TIDAC 10/17/22 08/09/23 (3 mL) subcutaneous pen (Novolog FlexPen U-100 Insulin aspart) ipratropium 0.5 mg-albuterol 3 mg 3 ml inhalation QID PRN Shortness 10/17/22 08/09/23 (2.5 mg base)/3 mL nebulization Of Breath soln loratadine 10 mg tablet 10 mg PO DAILY@1200 10/17/22 08/09/23 metformin 500 mg tablet 500 mg PO BIDWM 10/17/22 08/09/23 omeprazole 20 mg capsule,delayed 20 mg PO BID@0630,1630 10/17/22 08/09/23 release quetiapine 25 mg tablet 25 mg PO BID PRN anxiety 10/17/22 08/09/23 quetiapine 300 mg tablet 300 mg PO BEDTIME 10/17/22 08/09/23 sertraline 100 mg tablet 100 mg PO DAILY 10/17/22 08/09/23 simvastatin 40 mg tablet 40 mg PO QPM 10/17/22 08/09/23 methadone 10 mg/mL oral 75 mg PO DAILY 10/18/22 08/12/23 concentrate (Methadone Intensol) Previous Rx's ?Medication ?Instructions ?Recorded fluticasone 500 mcg-salmeterol 50 1 ea inhalation BID #60 caps 06/23/21 mcg/dose blistr powdr for inhalation ertapenem 1 gram solution for 1 g IV DAILY #41 ea 08/14/23 injection insulin glargine 100 unit/mL (3 25 unit (0.25 mL) subcut BEDTIME 08/14/23 mL) subcutaneous pen (Lantus #15 mL Solostar U-100 Insulin) ertapenem 1 gram solution for 1 g IV DAILY #22 ea 09/06/23 injection Allergies Allergy/AdvReac Type Severity Reaction Status Date / Time bee pollen [BEE STINGS] Allergy Severe THROAT Verified 09/06/23 15:42 SWELLING raspberry [RASPBERRY] Allergy Severe UNKNOWN Verified 09/06/23 15:42 tadalafil [From CIALIS] Allergy Severe ANAPHYLAXIS Verified 09/06/23 15:42 wool Allergy Intermediate RASH Verified 09/06/23 15:42 Review of Systems Review of Systems: Yes all other systems are reviewed and are negative PMFSH Past Medical History Attestation statement: The following information was validated with the patient. Source: old records reviewed and nursing notes reviewed Medical History Diarrhea Moderate persistent asthma Depression Anxiety GERD (gastroesophageal reflux disease) Diabetes Asthma Substance abuse Surgical History No pertinent past surgical history Family History Family History Father Diabetes mellitus Alcohol abuse Social History Social History Household Members: Family Housing: House Do you presently have visiting nurse or other home services: No Unable to assess alcohol history related to: Unable to respond and Unknown Patient Tobacco Use Status: Never used Tobacco Substance Use Type: Marijuana Advance Directives: No Advance Directives Information Provided: No service: No Physical Exam ED Vital Signs: Vital Signs - 24 hr 09/06/23 15:40 Temperature 97.7 F Pulse Rate 75 Respiratory Rate 18 Blood Pressure 103/68 Pulse Oximetry 95 Oxygen Delivery Method Room Air BMI result Body Mass Index 28.7 vss Appearance: Alert.? Oriented X3.? No acute distress.? Head: Normocephalic, atraumatic, no step-offs or deformities Eyes: Pupils equal, round and reactive to light.? Neck: Normal inspection.? Neck supple.? CVS: Normal heart rate and rhythm.? Pulses normal.? Respiratory: No respiratory distress.? Breath sounds normal.? Abdomen: Soft and nontender.? Skin: Skin warm and dry.? Normal skin color.? Normal skin turgor.?+ wound to left second toe appears to be dry and scabing over ( when compared to previous images from prev ed visit) ( refer to images ) Extremities: No lower extremity edema.? No calf ttp. 5/5 strength to bilateral upper and lower extremities Back: No midline tenderness, no C-spine tenderness, full range of motion, no CVA tenderness bilaterally Neuro: Oriented X 3.? No motor deficit.? No sensory deficit. CN 2-12 intact Course Course Course Narrative: This is a rapid medical exam performed by C. Sandee, RESIDENTIAL MANAGER: Additional HPI, ROS, PE not included below will be deferred to primary provider. Patient is a 58-year-old male with osteomyelitis presenting to the ED reporting that his PICC line fell out of his left arm completely today. Seen here on 09/02, line was assessed, patient was supposed to follow up with IR, he states that he called and spoke with someone but never got a return call. Did not get his antibiotics yesterday or today. Denies chest pain or dyspnea. Plan: CXR Reevaluation(s) Reevaluation #1: According to chart review it appears as though patient was d/c on 08/14/2023 w/ ertapenem 1 g daily IV, he states he was compliant up until two days ago. Time: 16:35 Reevaluation #2: Will give 1 g of ertapenem plan is to try to get patient to IR for PICC line in the AM. Ordered in computer At this time patient to be placed into observation to allow more time to be evaluated by Interventional Radiology for new PICC line and patient is to follow-up with infectious disease this week. Time: 16:49 Reevaluation #3: I discussed this case with Infectious Disease Dr. Rivera, patient has taken around 20 days of IV ertapenem 1 g daily, 22 days remaining, will discharge patient home after he gets his PICC line from Interventional Radiology where he is at right now getting a PICC line. Patient to be discharged home with ertapenem. 1 g daily, will have him follow-up with Infectious Disease and Wound Care. Educated patient on diagnosis and treatment plan, answered all question, patient verbalizes understanding. At this time patient will be discharged home, advised to return with new or worsening symptoms. Educated on worrisome signs and symptoms and when to return. At this time I feel comfortable discharge home. Time: 17:19 Medications Administered Discontinued Medications Generic Name Dose Route Start Last Admin Trade Name Freq PRN Reason Stop Dose Admin Ertapenem 1 gm/ Sodium 50 mls @ 100 mls/hr 09/06/23 16:47 09/06/23 16:58 Chloride IV 09/06/23 17:16 100 mls/hr ONCE ONE Administration Medical Decision Making Medical Decision Making [facility] Narrative: 1626 58-year-old male presents with left 2nd toe infection told he had osteomyelitis had a PICC line has not received antibiotics in 2 days and today he accidentally pulled out his PICC line. Physical significant for History and physical exam osteomyelitis of left 2nd toe partially healed no signs abscess. Unlikely neurovascular compromise acute threat to limb. Plan at this time basic labs, inflammatory markers will reach out ID Differential Diagnosis Differential Diagnoses: The differential diagnosis associated with the presentation includes History and physical exam osteomyelitis of left 2nd toe partially healed no signs abscess. Unlikely neurovascular compromise acute threat to limb. Admission/Observation Consideration of admission/observation: Escalation of care including admission/observation considered unlikely Consult Healthcare Provider Management of the patient was discussed with: Neurological Surgery Teacher Lab Data [facility] Lab Attestation statement: I reviewed the patient's lab results. 09/06/23 16:19 09/06/23 16:19 Labs: Lab Results 09/06/23 Range/Units 16:19 WBC 6.0 (4.8-10.8) X10*3/uL RBC 4.26 L (4.60-5.80) X10*6/uL Hgb 11.6 L (14.0-18.0) g/dl Hct 35.4 L (42.0-52.0) % MCV 83.1 (80.0-98.0) fL MCH 27.2 (27.0-33.0) pg MCHC 32.8 (31.0-36.0) g/dl RDW 13.4 (11.0-16.0) % Plt Count 207 D (160-400) X10*3/uL MPV 10.6 (9.4-12.4) fL Immature Gran % (Auto) 0.5 H (0.0-0.4) % Neut % (Auto) 41.4 L (45-73) % Lymph % (Auto) 41.7 H (20-40) % [place] % (Auto) 12.1 H (2-11) % Eos % (Auto) 3.5 (0-4) % Baso % (Auto) 0.8 (0-2) % Lymph # (Auto) 2.5 (1.2-4.9) X10*3/uL [place] # (Auto) 0.7 (0.1-1.2) X10*3/uL Eos # (Auto) 0.2 (0.0-0.4) X10*3/uL Baso # (Auto) 0.1 (0.0-0.2) X10*3/uL Abs Immat Gran (auto) 0.03 (0.00-0.03) X10*3/uL Absolute Neuts (auto) 2.5 (2.0-8.3) x10*3/uL Absolute Nucleated RBC 0.000 (0.0-0.012) X10*3/uL Nucleated RBC % (auto) 0.0 (0.0-0.2) /100WBC ESR 9 (0-15) MM/HR Sodium 137 (135-145) mmol/L Potassium 4.3 (3.3-5.1) mmol/L Chloride 101 (96-108) mmol/L Carbon Dioxide 27 (22-29) mmol/L Anion Gap 13 (12-20) BUN 19 H (9-16) mg/dL Creatinine 1.12 (0.5-1.4) mg/dL Estim Creat Clear Calc 85.4 Estimated GFR > 60 Random Glucose 164 H (60-115) mg/dL Calcium 9.5 (8.4-10.2) mg/dL Total Bilirubin 0.2 (0.0-1.0) mg/dL AST 13 (5-37) U/L ALT 14 (0-40) U/L Alkaline Phosphatase 85 (39-117) U/L C-Reactive Protein 0.18 (< or = 0.50) mg/dL Total Protein 7.5 (6.5-8.0) g/dL Albumin 3.9 (3.5-5.0) g/dL Critical Care Time Critical Care Time Critical Care Time: Yes Total Critical Care Time: 45 Attestation: I attest to this time spent taking care of the patient, obtaining history, physical, reviewing labs, imaging, speaking to my attending, specialist or hospitalist. Discharge Plan Discharge Clinical Impression: Diabetic infection of left foot, Osteomyelitis Patient Disposition: Home, Self-Care Instructions: Osteomyelitis (ED) Additional Instructions: Take your medications as prescribed. If you were prescribed antibiotics today, it is important that you take your medication to their entirety, do not skip any doses, do not finish them early. Follow-up with your primary care provider this week. Return to the emergency department with new or worsening symptoms. Such as fevers, chills, chest pain, shortness of breath, nausea, vomiting, dizziness, headache, vision changes, lethargy In case of emergency call 911 Prescriptions: New ertapenem 1 gram recon soln 1 g IV DAILY Qty: 22 0RF No Action fluticasone propion-salmeterol 500-50 mcg/dose blister with device 1 ea inhalation BID Qty: 60 6RF quetiapine 25 mg tablet 25 mg PO BID PRN (Reason: anxiety) metformin 500 mg tablet 500 mg PO BIDWM carvedilol 12.5 mg tablet 12.5 mg PO BID ipratropium-albuterol 0.5 mg-3 mg(2.5 mg base)/3 mL solution for nebulization 3 ml inhalation QID PRN (Reason: Shortness Of Breath) quetiapine 300 mg tablet 300 mg PO BEDTIME glipizide 10 mg tablet 10 mg PO BIDAC sertraline 100 mg tablet 100 mg PO DAILY hydroxyzine pamoate 50 mg capsule 50 mg PO TID PRN (Reason: Anxiety) aspirin 81 mg tablet,delayed release (DR/EC) 81 mg PO DAILY@1200 amitriptyline 50 mg tablet 50 mg PO BEDTIME simvastatin 40 mg tablet 40 mg PO QPM gabapentin 800 mg tablet 800 mg PO TID omeprazole 20 mg capsule,delayed release(DR/EC) 20 mg PO BID@0630,1630 albuterol sulfate [Ventolin HFA] 90 mcg/actuation HFA aerosol inhaler 2 puff INHALATION QID PRN (Reason: Shortness Of Breath) fluticasone propionate 50 mcg/actuation spray,suspension 2 spray intranasal DAILY acetaminophen [Mapap (acetaminophen)] 500 mg capsule 500 mg PO Q8H PRN (Reason: Pain (Scale Score 1-3)) loratadine 10 mg tablet 10 mg PO DAILY@1200 insulin aspart U-100 [Novolog FlexPen U-100 Insulin] 100 unit/mL (3 mL) insulin pen See Protocol subcut TIDAC Protocol: Insulin Correction Scale Less than or equal to 110 ---- Give (units): 0 111 to 150 Give (units): 0 151 to 200 Give (units): 2 201 to 250 Give (units): 4 251 to 300 Give (units): 6 301 to 350 Give (units): 8 Greater than 350 Give (units): 10 Call MD if Blood Glucose > : 350 Rx Instructions: SLIDING SCALE 100-149=12 UNITS, 150-199=14 UNITS, 200-249=16 UNITS, 250-299=18 UNITS, 300 AND ABOVE-20 UNITS fenofibrate 160 mg tablet 160 mg PO DAILY methadone [Methadone Intensol] 10 mg/mL Concentrate 75 mg PO DAILY insulin glargine [Lantus Solostar U-100 Insulin] 100 unit/mL (3 mL) insulin pen 25 unit subcut BEDTIME Qty: 15 0RF ertapenem 1 gram recon soln 1 g IV DAILY Qty: 41 0RF Rx Instructions: ending 07/25 Referrals: [facility] [Provider Group] - 1 day [facility] [Provider Group] - 2 days Magalie Schuster MD [Physician] - 1 day [facility] [Physician] - 2 days Stand Alone Forms: Work/School Release Print Language: Lebanese
--- NOTE | 2023-09-06 15:51 | PC.NURSE ---
SILVANA CHAVEZ RN CALLED AND SHE SAID THE DR BOLAND WANTED HIM EVALUATED IN THE ED TO DECIDE IF HE NEEDS FURTHER TREATMENT FOR HIS OSTEOMYLITIS AND IF THE PICC LINE IS NECESSARY
[2023-09-06 16:24] LABS: MANUAL DIFF FLAG NO
--- NOTE | 2023-09-06 16:24 | ED_ITS ---
HPI - General Adult General Chief complaint: General Medical Stated complaint: PICC line fell out Time Seen by Provider: 09/06/23 16:22 Source: patient Mode of arrival: ambulatory Limitations: no limitations History of Present Illness ED Provider: Riri DANIELS HPI narrative: 58-year-old male history of diabetes poorly controlled, anxiety, asthma, substance abuse, anxiety, depression, asthma, GERD presenting to the emergency department stating that his PICC line was accidentally pulled out today by him, it was in his left upper extremity, he states he has had antibiotics for the past 2 days as he has not been able to contact IR and has just not been able to get them. Patient reports he is on antibiotics for infection in the bone. Denies fevers, chills, numbness, tingling, chest pain, shortness of breath, nausea, vomiting, abdominal pain, headache, vision changes weakness Related Data Home Medications ?Medication ?Instructions ?Recorded ?Confirmed acetaminophen 500 mg capsule 500 mg PO Q8H PRN Pain (Scale 10/17/22 08/09/23 (Mapap (acetaminophen)) Score 1-3) albuterol sulfate 90 mcg/actuation 2 puff inhalation QID PRN 10/17/22 08/09/23 aerosol inhaler (Ventolin HFA) Shortness Of Breath amitriptyline 50 mg tablet 50 mg PO BEDTIME 10/17/22 08/09/23 aspirin 81 mg tablet,delayed 81 mg PO DAILY@1200 10/17/22 08/09/23 release carvedilol 12.5 mg tablet 12.5 mg PO BID 10/17/22 08/09/23 fenofibrate 160 mg tablet 160 mg PO DAILY 10/17/22 08/09/23 fluticasone propionate 50 2 spray intranasal DAILY 10/17/22 08/09/23 mcg/actuation nasal spray,suspension gabapentin 800 mg tablet 800 mg PO TID 10/17/22 08/09/23 glipizide 10 mg tablet 10 mg PO BIDAC 10/17/22 08/09/23 hydroxyzine pamoate 50 mg capsule 50 mg PO TID PRN Anxiety 10/17/22 08/09/23 insulin aspart U-100 100 unit/mL See Protocol subcut TIDAC 10/17/22 08/09/23 (3 mL) subcutaneous pen (Novolog FlexPen U-100 Insulin aspart) ipratropium 0.5 mg-albuterol 3 mg 3 ml inhalation QID PRN Shortness 10/17/22 08/09/23 (2.5 mg base)/3 mL nebulization Of Breath soln loratadine 10 mg tablet 10 mg PO DAILY@1200 10/17/22 08/09/23 metformin 500 mg tablet 500 mg PO BIDWM 10/17/22 08/09/23 omeprazole 20 mg capsule,delayed 20 mg PO BID@0630,1630 10/17/22 08/09/23 release quetiapine 25 mg tablet 25 mg PO BID PRN anxiety 10/17/22 08/09/23 quetiapine 300 mg tablet 300 mg PO BEDTIME 10/17/22 08/09/23 sertraline 100 mg tablet 100 mg PO DAILY 10/17/22 08/09/23 simvastatin 40 mg tablet 40 mg PO QPM 10/17/22 08/09/23 methadone 10 mg/mL oral 75 mg PO DAILY 10/18/22 08/12/23 concentrate (Methadone Intensol) Previous Rx's ?Medication ?Instructions ?Recorded fluticasone 500 mcg-salmeterol 50 1 ea inhalation BID #60 caps 06/23/21 mcg/dose blistr powdr for inhalation ertapenem 1 gram solution for 1 g IV DAILY #41 ea 08/14/23 injection insulin glargine 100 unit/mL (3 25 unit (0.25 mL) subcut BEDTIME 08/14/23 mL) subcutaneous pen (Lantus #15 mL Solostar U-100 Insulin) ertapenem 1 gram solution for 1 g IV DAILY #22 ea 09/06/23 injection Allergies Allergy/AdvReac Type Severity Reaction Status Date / Time bee pollen [BEE STINGS] Allergy Severe THROAT Verified 09/06/23 15:42 SWELLING raspberry [RASPBERRY] Allergy Severe UNKNOWN Verified 09/06/23 15:42 tadalafil [From CIALIS] Allergy Severe ANAPHYLAXIS Verified 09/06/23 15:42 wool Allergy Intermediate RASH Verified 09/06/23 15:42 Review of Systems 2 Review of Systems: Yes all other systems are reviewed and are negative PMFSH Past Medical History Attestation statement: The following information was validated with the patient. Source: old records reviewed and nursing notes reviewed Medical History Diarrhea Moderate persistent asthma Depression Anxiety GERD (gastroesophageal reflux disease) Diabetes Asthma Substance abuse Surgical History No pertinent past surgical history Family History Family History Father Diabetes mellitus Alcohol abuse Social History Social History Household Members: Family Housing: House Do you presently have visiting nurse or other home services: No Unable to assess alcohol history related to: Unable to respond and Unknown Patient Tobacco Use Status: Never used Tobacco Substance Use Type: Marijuana Advance Directives: No Advance Directives Information Provided: No service: No Physical Exam ED Vital Signs: Vital Signs - 24 hr 09/06/23 15:40 Temperature 97.7 F Pulse Rate 75 Respiratory Rate 18 Blood Pressure 103/68 Pulse Oximetry 95 Oxygen Delivery Method Room Air BMI result Body Mass Index 28.7 vss Appearance: Alert.? Oriented X3.? No acute distress.? Head: Normocephalic, atraumatic, no step-offs or deformities Eyes: Pupils equal, round and reactive to light.? Neck: Normal inspection.? Neck supple.? CVS: Normal heart rate and rhythm.? Pulses normal.? Respiratory: No respiratory distress.? Breath sounds normal.? Abdomen: Soft and nontender.? Skin: Skin warm and dry.? Normal skin color.? Normal skin turgor.?+ wound to left second toe ( refer to images ) Extremities: No lower extremity edema.? No calf ttp. 5/5 strength to bilateral upper and lower extremities Back: No midline tenderness, no C-spine tenderness, full range of motion, no CVA tenderness bilaterally Neuro: Oriented X 3.? No motor deficit.? No sensory deficit. CN 2-12 intact Course Reevaluation(s) Reevaluation #1: CBC with no acute findings. Chemistry no acute findings requiring intervention. ESR CRP normal. Initial x-ray with no PICC line visualized. IR did place a PICC line.X-ray will be ordered for confirmation IR placed a single-lumen PICC PH SV into right upper arm. Patient has flushing orders and [facility] at home. Will order the remaining 22 days of ertapenem as requested by ID. According to case management [facility] is actively involved in they have the orders needed such as saline flushes. X-ray for confirmation then patient to be discharged. Time: 18:26 Medications Administered Discontinued Medications Generic Name Dose Route Start Last Admin Trade Name Maulikq PRN Reason Stop Dose Admin Ertapenem 1 gm/ Sodium 50 mls @ 100 mls/hr 09/06/23 16:47 09/06/23 17:30 Chloride IV 09/06/23 17:16 Infused ONCE ONE Infusion Medical Decision Making Medical Decision Making [facility] Narrative: 1626 Lab Data 09/06/23 16:19 09/06/23 16:19 Labs: Lab Results 09/06/23 Range/Units 16:19 WBC 6.0 (4.8-10.8) X10*3/uL RBC 4.26 L (4.60-5.80) X10*6/uL Hgb 11.6 L (14.0-18.0) g/dl Hct 35.4 L (42.0-52.0) % MCV 83.1 (80.0-98.0) fL MCH 27.2 (27.0-33.0) pg MCHC 32.8 (31.0-36.0) g/dl RDW 13.4 (11.0-16.0) % Plt Count 207 D (160-400) X10*3/uL MPV 10.6 (9.4-12.4) fL Immature Gran % (Auto) 0.5 H (0.0-0.4) % Neut % (Auto) 41.4 L (45-73) % Lymph % (Auto) 41.7 H (20-40) % Garrard % (Auto) 12.1 H (2-11) % Eos % (Auto) 3.5 (0-4) % Baso % (Auto) 0.8 (0-2) % Lymph # (Auto) 2.5 (1.2-4.9) X10*3/uL Garrard # (Auto) 0.7 (0.1-1.2) X10*3/uL Eos # (Auto) 0.2 (0.0-0.4) X10*3/uL Baso # (Auto) 0.1 (0.0-0.2) X10*3/uL Abs Immat Gran (auto) 0.03 (0.00-0.03) X10*3/uL Absolute Neuts (auto) 2.5 (2.0-8.3) x10*3/uL Absolute Nucleated RBC 0.000 (0.0-0.012) X10*3/uL Nucleated RBC % (auto) 0.0 (0.0-0.2) /100WBC ESR 9 (0-15) MM/HR Sodium 137 (135-145) mmol/L Potassium 4.3 (3.3-5.1) mmol/L Chloride 101 (96-108) mmol/L Carbon Dioxide 27 (22-29) mmol/L Anion Gap 13 (12-20) BUN 19 H (9-16) mg/dL Creatinine 1.12 (0.5-1.4) mg/dL Estim Creat Clear Calc 85.4 Estimated GFR > 60 Random Glucose 164 H (60-115) mg/dL Calcium 9.5 (8.4-10.2) mg/dL Total Bilirubin 0.2 (0.0-1.0) mg/dL AST 13 (5-37) U/L ALT 14 (0-40) U/L Alkaline Phosphatase 85 (39-117) U/L C-Reactive Protein 0.18 (< or = 0.50) mg/dL Total Protein 7.5 (6.5-8.0) g/dL Albumin 3.9 (3.5-5.0) g/dL Discharge Plan Discharge Clinical Impression: Diabetic infection of left foot, Osteomyelitis Patient Disposition: Home, Self-Care Instructions: Osteomyelitis (ED) Additional Instructions: Take your medications as prescribed. If you were prescribed antibiotics today, it is important that you take your medication to their entirety, do not skip any doses, do not finish them early. Follow-up with your primary care provider this week. Return to the emergency department with new or worsening symptoms. Such as fevers, chills, chest pain, shortness of breath, nausea, vomiting, dizziness, headache, vision changes, lethargy In case of emergency call 911 Prescriptions: New ertapenem 1 gram recon soln 1 g IV DAILY Qty: 22 0RF No Action fluticasone propion-salmeterol 500-50 mcg/dose blister with device 1 ea inhalation BID Qty: 60 6RF quetiapine 25 mg tablet 25 mg PO BID PRN (Reason: anxiety) metformin 500 mg tablet 500 mg PO BIDWM carvedilol 12.5 mg tablet 12.5 mg PO BID ipratropium-albuterol 0.5 mg-3 mg(2.5 mg base)/3 mL solution for nebulization 3 ml inhalation QID PRN (Reason: Shortness Of Breath) quetiapine 300 mg tablet 300 mg PO BEDTIME glipizide 10 mg tablet 10 mg PO BIDAC sertraline 100 mg tablet 100 mg PO DAILY hydroxyzine pamoate 50 mg capsule 50 mg PO TID PRN (Reason: Anxiety) aspirin 81 mg tablet,delayed release (DR/EC) 81 mg PO DAILY@1200 amitriptyline 50 mg tablet 50 mg PO BEDTIME simvastatin 40 mg tablet 40 mg PO QPM gabapentin 800 mg tablet 800 mg PO TID omeprazole 20 mg capsule,delayed release(DR/EC) 20 mg PO BID@0630,1630 albuterol sulfate [Ventolin HFA] 90 mcg/actuation HFA aerosol inhaler 2 puff INHALATION QID PRN (Reason: Shortness Of Breath) fluticasone propionate 50 mcg/actuation spray,suspension 2 spray intranasal DAILY acetaminophen [Mapap (acetaminophen)] 500 mg capsule 500 mg PO Q8H PRN (Reason: Pain (Scale Score 1-3)) loratadine 10 mg tablet 10 mg PO DAILY@1200 insulin aspart U-100 [Novolog FlexPen U-100 Insulin] 100 unit/mL (3 mL) insulin pen See Protocol subcut TIDAC Protocol: Insulin Correction Scale Less than or equal to 110 ---- Give (units): 0 111 to 150 Give (units): 0 151 to 200 Give (units): 2 201 to 250 Give (units): 4 251 to 300 Give (units): 6 301 to 350 Give (units): 8 Greater than 350 Give (units): 10 Call MD if Blood Glucose > : 350 Rx Instructions: SLIDING SCALE 100-149=12 UNITS, 150-199=14 UNITS, 200-249=16 UNITS, 250- 299=18 UNITS, 300 AND ABOVE-20 UNITS fenofibrate 160 mg tablet 160 mg PO DAILY methadone [Methadone Intensol] 10 mg/mL Concentrate 75 mg PO DAILY insulin glargine [Lantus Solostar U-100 Insulin] 100 unit/mL (3 mL) insulin pen 25 unit subcut BEDTIME Qty: 15 0RF ertapenem 1 gram recon soln 1 g IV DAILY Qty: 41 0RF Rx Instructions: ending 07/25 [address]errals: [facility] [Provider Group] - [address] [facility] [Provider Group] - 2 days Magalie Schuster MD [Physician] - 1 day Physician,Klaus Kumar [Physician] - 2 days Stand Alone Forms: Work/School Release Print Language: Rwandan
[2023-09-06 16:28] LABS: Basophils Absolute Auto 0.1 X10*3/uL (0.0-0.2); Basophils Percent Auto 0.8 % (0-2); Eosinophils Absolute Auto 0.2 X10*3/uL (0.0-0.4); Eosinophils Percent Auto 3.5 % (0-4); Hematocrit 35.4 % (42.0-52.0); Hemoglobin 11.6 g/dl (14.0-18.0); Imm Gran Abs Auto 0.03 X10*3/uL (0.00-0.03); Imm Gran Pct Auto 0.5 % (0.0-0.4); Lymphocytes Absolute Auto 2.5 X10*3/uL (1.2-4.9); Lymphocytes Percent Auto 41.7 % (20-40); Mean Corpuscular HGB Conc 32.8 g/dl (31.0-36.0); Mean Corpuscular Hemoglobin 27.2 pg (27.0-33.0); Mean Corpuscular Volume 83.1 fL (80.0-98.0); Mean Platelet Volume 10.6 fL (9.4-12.4); Monocytes Absolute Auto 0.7 X10*3/uL (0.1-1.2); Monocytes Percent Auto 12.1 % (2-11); Neutrophils Absolute Auto 2.5 x10*3/uL (2.0-8.3); Neutrophils Percent Auto 41.4 % (45-73); Platelet Count 207 X10*3/uL (160-400); Red Blood Count 4.26 X10*6/uL (4.60-5.80); Red Cell Distribution Width 13.4 % (11.0-16.0)
[2023-09-06 16:44] LABS: Alanine Aminotransferase 14 U/L (0-40); Albumin Level 3.9 g/dL (3.5-5.0); Alkaline Phosphatase 85 U/L (39-117); Anion Gap 13 (12-20); Aspartate Amino Transferase 13 U/L (5-37); Bilirubin Total 0.2 mg/dL (0.0-1.0); Blood Urea Nitrogen 19 mg/dL (9-16); C Reactive Protein 0.18 mg/dL (< or = 0.50); Calcium 9.5 mg/dL (8.4-10.2); Carbon Dioxide 27 mmol/L (22-29); Chloride 101 mmol/L (96-108); Creatinine Clr Calc Pharmacy 85.4; Estimated Glomerular Filt Rate > 60; Glucose Random 164 mg/dL (60-115); Potassium 4.3 mmol/L (3.3-5.1); Sodium 137 mmol/L (135-145); Total Protein 7.5 g/dL (6.5-8.0)
[2023-09-06] MEDS: Ertapenem Sodium 1 GM in 0.9 % Sodium Chloride 50 ML IV (16:58)
--- NOTE | 2023-09-06 17:00 | PC.NURSE ---
no new BC needed per provider, patient still needs PICC line per ID provider, patient to remain in ED until IR able to schedule.
[2023-09-06 17:12] LABS: Erythrocyte Sedimentation Rate 9 MM/HR (0-15)
--- NOTE | 2023-09-06 18:17 | P.PICC_ITS ---
PICC Line Insertion NPICC Diagnosis: Osteomyelitis Indication: senior living ABT.Pt reports previous PICC line fell out Pertinent Labs: Reviewed Technique: Following informed consent including risks, benefits and alternatives and using sterile technique including cap and mask, sterile gown, glove and drape, the right arm was prepped and draped in the usual sterile fashion of full barrier technique with CHG. Following completion of [place] Protocol the skin and soft tissues were anesthetized with 1% Lidocaine plain. Using ultrasound guidance, right basilic vein access was obtained. Over an 0.018 wire through peel-away sheath, a 4FR single lumen PASV PICC line was positioned. Catheter length is 43cm internal length, 0cm external length, for a total trimmed length of 43cm. The procedure was performed in formerly [facility]. Tip verification was performed by Woo Calloway with Sherlock 3CG. Tip located in SVC. Ultrasound was used to document vein patency and for needle entry. A formal ultrasound picture and cardiac rhythm strip was recorded. [employer] has released the line for use and it is currently dressed with a StatLock, Tegaderm, and CHG disc. Verification has been performed for blood return and line patency. Arm Circumference: 29cm Equipment: Convore PowerPICC SOLO with Sherlock 3CG Tip Catheter Type: 4FR singe lumen PASV PICC catheter Lot #: [id number]
[2023-09-06 19:19] VITALS: BP 103/68; PULSE 75; RESP 18; TEMP 36.5; O2SAT 95
[2023-09-06] MEDS: 0.9 % Sodium Chloride Flush 10 ML SYRINGE 5 ML IVFLUSH (19:21)
--- NOTE | 2023-09-06 19:22 | PC.NURSE ---
Patient's new PICC line flushed, capped, patient states he does not want it wrapped at the moment, it feels fine . Patient dc'd home.
== END 2023-09-06 19:20 | disposition home or self-care (01) ==
PROVIDERS: Registered Nurse Emergency; Emergency Provider Student in an Organized Health Care Education/Training Program
DX: E11.69 Type 2 diabetes mellitus with other specified complication (principal); M86.8X7 Other osteomyelitis, ankle and foot; T82.594A Other mechanical complication of infusion catheter, initial encounter; T82.898A Other specified complication of vascular prosthetic devices, implants and grafts, initial encounter; Y82.8 Other medical devices associated with adverse incidents; Y92.9 Unspecified place or not applicable; J45.40 Moderate persistent asthma, uncomplicated; F19.10 Other psychoactive substance abuse, uncomplicated; K21.9 Gastro-esophageal reflux disease without esophagitis; Z79.84 Long term (current) use of oral hypoglycemic drugs; Z79.899 Other long term (current) drug therapy; Z79.82 Long term (current) use of aspirin; Z79.4 Long term (current) use of insulin
CPT/HCPCS: 36415; 36573; 71045; 71046; 80053; 85025; 85652; 86140; 96374; 99283; 99284; C1751; J1335

== ENCOUNTER 2023-09-13 15:42 | Outpatient (REF) | payer OTHER, SELFPAY ==
[2023-09-13 15:47] LABS: MANUAL DIFF FLAG NO
[2023-09-13 15:56] LABS: Basophils Absolute Auto 0.1 X10*3/uL (0.0-0.2); Basophils Percent Auto 0.8 % (0-2); Eosinophils Absolute Auto 0.3 X10*3/uL (0.0-0.4); Eosinophils Percent Auto 4.5 % (0-4); Hematocrit 33.9 % (42.0-52.0); Hemoglobin 11.4 g/dl (14.0-18.0); Imm Gran Abs Auto 0.01 X10*3/uL (0.00-0.03); Imm Gran Pct Auto 0.2 % (0.0-0.4); Lymphocytes Absolute Auto 2.1 X10*3/uL (1.2-4.9); Lymphocytes Percent Auto 35.6 % (20-40); Mean Corpuscular HGB Conc 33.6 g/dl (31.0-36.0); Mean Corpuscular Hemoglobin 27.4 pg (27.0-33.0); Mean Corpuscular Volume 81.5 fL (80.0-98.0); Mean Platelet Volume 11.5 fL (9.4-12.4); Monocytes Absolute Auto 0.7 X10*3/uL (0.1-1.2); Monocytes Percent Auto 11.9 % (2-11); Neutrophils Absolute Auto 2.8 x10*3/uL (2.0-8.3); Platelet Count 195 X10*3/uL (160-400); Red Blood Count 4.16 X10*6/uL (4.60-5.80); Red Cell Distribution Width 13.3 % (11.0-16.0)
== END 2023-09-13 15:43 | disposition home or self-care (01) ==
LOC: HO.HVNA 15:42
PROVIDERS: Visit Provider Internal Medicine
DX: M86.172 Other acute osteomyelitis, left ankle and foot (principal)
CPT/HCPCS: 36415; 85025

== ENCOUNTER 2023-09-20 13:12 | Outpatient (REF) | payer OTHER, SELFPAY ==
[2023-09-20 13:15] LABS: MANUAL DIFF FLAG NO
[2023-09-20 13:25] LABS: Basophils Absolute Auto 0.1 X10*3/uL (0.0-0.2); Basophils Percent Auto 1.2 % (0-2); Eosinophils Absolute Auto 0.2 X10*3/uL (0.0-0.4); Eosinophils Percent Auto 5.2 % (0-4); Hematocrit 33.3 % (42.0-52.0); Hemoglobin 11.1 g/dl (14.0-18.0); Imm Gran Abs Auto 0.01 X10*3/uL (0.00-0.03); Imm Gran Pct Auto 0.2 % (0.0-0.4); Lymphocytes Absolute Auto 1.8 X10*3/uL (1.2-4.9); Lymphocytes Percent Auto 42.1 % (20-40); Mean Corpuscular HGB Conc 33.3 g/dl (31.0-36.0); Mean Corpuscular Hemoglobin 27.3 pg (27.0-33.0); Mean Platelet Volume 11.6 fL (9.4-12.4); Monocytes Absolute Auto 0.6 X10*3/uL (0.1-1.2); Monocytes Percent Auto 13.9 % (2-11); Neutrophils Absolute Auto 1.6 x10*3/uL (2.0-8.3); Neutrophils Percent Auto 37.4 % (45-73); Platelet Count 217 X10*3/uL (160-400); Red Blood Count 4.06 X10*6/uL (4.60-5.80); Red Cell Distribution Width 13.7 % (11.0-16.0); White Blood Count 4.3 X10*3/uL (4.8-10.8)
[2023-09-20 14:16] LABS: Anion Gap 11 (12-20); Blood Urea Nitrogen 14 mg/dL (9-16); Carbon Dioxide 27 mmol/L (22-29); Chloride 101 mmol/L (96-108); Estimated Glomerular Filt Rate > 60; Glucose Random 276 mg/dL (60-115); Potassium 4.4 mmol/L (3.3-5.1); Sodium 135 mmol/L (135-145)
== END 2023-09-20 13:13 | disposition home or self-care (01) ==
LOC: HO.HVNA 13:12
PROVIDERS: Visit Provider Internal Medicine
DX: Z45.2 Encounter for adjustment and management of vascular access device (principal); L03.116 Cellulitis of left lower limb; M86.172 Other acute osteomyelitis, left ankle and foot
CPT/HCPCS: 36415; 80048; 85025

== ENCOUNTER 2023-09-25 13:18 | Outpatient (AMB) | payer OTHER, SELFPAY ==
--- NOTE | 2023-09-25 13:10 | A.OFFVIS_ITS ---
Vital Signs 3 09/25/23 13:11 Height 6 ft Weight 228 lb BMI 30.9 Pulse 80 Pulse Source Pulse Oximeter Pulse Oximetry (%) 98 Intake Visit Reasons: end of picc line/left foot osteomyelitis Allergies bee pollen [BEE STINGS] Allergy (Severe, Verified 09/25/23 13:19) THROAT SWELLING raspberry [RASPBERRY] Allergy (Severe, Verified 09/25/23 13:19) UNKNOWN tadalafil [From CIALIS] Allergy (Severe, Verified 09/25/23 13:19) ANAPHYLAXIS wool Allergy (Intermediate, Verified 09/25/23 13:19) RASH HPI HPI end of picc line/left foot osteomyelitis: Details: He feels well and has no complaint [facility] Medical History Diarrhea Moderate persistent asthma Depression Anxiety GERD (gastroesophageal reflux disease) Diabetes Asthma Substance abuse Surgical History No pertinent past surgical history Family History Father Diabetes mellitus Alcohol abuse Social History Household Members: Family Housing: House Do you presently have visiting nurse or other home services: No Unable to assess alcohol history related to: Unable to respond and Unknown Patient Tobacco Use Status: Never used Tobacco Substance Use Type: Marijuana service: No Review of Systems Const All systems reviewed & are unremarkable except as noted in HPI and below Physical Exam Vital Signs: Last Vital Signs Pulse 80 09/25/23 13:11 Pulse Ox 98 09/25/23 13:11 BMI result Body Mass Index 30.9 Const Other: General: cooperative HEENT Head: Yes normal to inspection Face and sinus: Yes normal facial exam Mouth: Normal oral and palatal mucosa present Teeth and gingiva: dentition normal Eyes General: appearance normal, both eyes and all related structures Pupils: Equal, round and reactive pupils present Resp Effort & Inspection: normal respiratory effort Cardio Rate: regular rate Rhythm: regular rhythm GI Palpation (GI): Soft to palpation and nontender General: Yes no CVA tenderness Back/Spine/Pelvis Back: no CVA tenderness Skin General skin exam: no rashes or lesions noted Neuro General: moves all extremities Cranial nerves: Yes Equal, round and reactive pupils present Extrem Other: healing Psych Appearance: grossly normal Assessment & Plan Assessment & Plan (1) Lower extremity ulceration: Comment: He has some improvement Code(s): L97.909 - Non-pressure chronic ulcer of unspecified part of unspecified lower leg with unspecified severity Category: Medical Qualifiers: Laterality: unspecified laterality Non-pressure ulcer stage: u nspecified non-pressure ulcer stage Qualified Code(s): L97.909 - Non-pressure chronic ulcer of unspecified part of unspecified lower leg with unspecified severity Plan: Would finish antibiotics. See prn need. Orders: Orders 2 IR cvc remove any age 0609/25/23 L97.909 - Non-pressure chronic ulcer of unspecified part of unspecified lower leg with unspecified severity Medications: New 2 doxycycline hyclate 100 mg PO BID 60 caps 0RF 30 days Coding Level of Care Code Est Pt Level 3 (59742) Diagnoses Ulcer of lower extremity, unspecified laterality, unspecified ulcer stage L97.909 Laterality: unspecified laterality Non-pressure ulcer stage: unspecified non-pressure ulcer stage
[2023-09-25 13:11] VITALS: PULSE 80; O2SAT 98; BMI 30.9
== END 2023-09-25 14:14 | disposition home or self-care (01) ==
PROVIDERS: Visit Provider Internal Medicine
DX: L97.909 Non-pressure chronic ulcer of unspecified part of unspecified lower leg with unspecified severity (principal)
CPT/HCPCS: 99213

== ENCOUNTER → 2023-09-25 13:18 | Outpatient (BNVA) | payer OTHER, SELFPAY | PROVIDERS: Visit Provider Internal Medicine | DX: L97.909 Non-pressure chronic ulcer of unspecified part of unspecified lower leg with unspecified severity (principal) | CPT/HCPCS: 99212 ==

== ENCOUNTER 2023-12-30 01:18 | Emergency (ER) | payer OTHER, SELFPAY ==
--- NOTE | 2023-12-30 | ECG_ITS ---
Test Reason : sob/cp Blood Pressure : / mmHG Vent. Rate : 099 BPM Atrial Rate : 099 BPM P-R Int : 168 ms QRS Dur : 104 ms QT Int : 378 ms P-R-T Axes : 038 -09 040 degrees QTc Int : 485 ms Poor data quality, interpretation may be adversely affected Normal sinus rhythm Minimal voltage criteria for LVH, may be normal variant ( R in aVL ) Nonspecific T wave abnormality Prolonged QT Abnormal ECG When compared with ECG of 17-OCT-2022 09:17, ST no longer depressed in Lateral leads Heart rate has decreased Referred By: Generic ED Physician Electronically Signed By:MURALI GUERRA
--- NOTE | ~2023-12-30 | XR_ITS ---
EXAMINATION: XR CHEST CLINICAL INFORMATION: Shortness of breath. Chest tightness. COMPARISON: September 06, 2023. TECHNIQUE: 2 views of the chest were obtained. FINDINGS: No significant abnormality is noted involving the heart, lungs, mediastinum, bony thorax or soft tissues. XR/XR chest 2V IMPRESSION: Unremarkable examination. Electronically signed by: Dario Marinelli MD 12/30/2023 02:12 AM EDT RP
[2023-12-30 01:23] VITALS: BP 118/82; PULSE 102; O2SAT 95
[2023-12-30 01:26] VITALS: BP 117/72; PULSE 102; RESP 18; TEMP 36.4; O2SAT 96; BMI 29.8
[2023-12-30 01:54] LABS: Basophils Absolute Auto 0.1 X10*3/uL (0.0-0.2); Basophils Percent Auto 0.8 % (0-2); Eosinophils Absolute Auto 0.2 X10*3/uL (0.0-0.4); Eosinophils Percent Auto 2.7 % (0-4); Hematocrit 36.3 % (42.0-52.0); Hemoglobin 12.4 g/dl (14.0-18.0); Imm Gran Abs Auto 0.02 X10*3/uL (0.00-0.03); Imm Gran Pct Auto 0.3 % (0.0-0.4); Lymphocytes Absolute Auto 2.4 X10*3/uL (1.2-4.9); Lymphocytes Percent Auto 37.9 % (20-40); MANUAL DIFF FLAG NO; Mean Corpuscular HGB Conc 34.2 g/dl (31.0-36.0); Mean Corpuscular Volume 81.9 fL (80.0-98.0); Mean Platelet Volume 11.6 fL (9.4-12.4); Monocytes Absolute Auto 0.8 X10*3/uL (0.1-1.2); Monocytes Percent Auto 12.6 % (2-11); Neutrophils Absolute Auto 2.9 x10*3/uL (2.0-8.3); Neutrophils Percent Auto 45.7 % (45-73); Platelet Count 222 X10*3/uL (160-400); Red Blood Count 4.43 X10*6/uL (4.60-5.80); Red Cell Distribution Width 12.6 % (11.0-16.0); White Blood Count 6.3 X10*3/uL (4.8-10.8)
[2023-12-30 02:07] LABS: Alanine Aminotransferase 15 U/L (0-40); Albumin Level 4.2 g/dL (3.5-5.0); Alkaline Phosphatase 77 U/L (39-117); Anion Gap 13 (12-20); Aspartate Amino Transferase 13 U/L (5-37); Bilirubin Total 0.2 mg/dL (0.0-1.0); Blood Urea Nitrogen 19 mg/dL (9-16); Calcium 9.6 mg/dL (8.4-10.2); Carbon Dioxide 27 mmol/L (22-29); Chloride 100 mmol/L (96-108); Creatinine Clr Calc Pharmacy 86.8; Estimated Glomerular Filt Rate > 60; Glucose Random 167 mg/dL (60-115); Potassium 3.8 mmol/L (3.3-5.1); Sodium 136 mmol/L (135-145); Total Protein 7.6 g/dL (6.5-8.0)
[2023-12-30 02:13] LABS: Troponin-I High Sensitivity 3.8 ng/L (<3.5-35.0)
[2023-12-30 03:56] LABS: Influenza A PCR NEGATIVE (Negative); Influenza B PCR NEGATIVE (Negative); Resp Syncy Virus RNA Qual PCR NEGATIVE (Negative); SARS COV2 PCR INHOUSE NEGATIVE (Negative)
[2023-12-30 04:33] VITALS: BP 113/62; PULSE 75; RESP 14; TEMP 36.6; O2SAT 99
--- NOTE | 2023-12-30 05:06 | ED.SOB ---
HPI - SOB/Dyspnea General Chief Complaint: Dyspnea Stated Complaint: PRESSURE ON CHEST/ DIFFICUTLY BREATHING Time Seen by Provider: 12/30/23 05:05 Source: patient and EMS Mode of arrival: EMS Limitations: no limitations History of Present Illness ED Provider: Dr. Johnson HPI Narrative: Patient is a 58yo male with history of COPD and anxiety who has felt that he could not lie down without getting short of breath. Patient states that his mother has been away for 3 weeks, she is coming home and this has caused him stress and he was having panic attacks. Related Data Home Medications ?Medication ?Instructions ?Recorded ?Confirmed acetaminophen 500 mg capsule 500 mg PO Q8H PRN Pain (Scale 10/17/22 08/09/23 (Mapap (acetaminophen)) Score 1-3) albuterol sulfate 90 mcg/actuation 2 puff inhalation QID PRN 10/17/22 08/09/23 aerosol inhaler (Ventolin HFA) Shortness Of Breath amitriptyline 50 mg tablet 50 mg PO BEDTIME 10/17/22 08/09/23 aspirin 81 mg tablet,delayed 81 mg PO DAILY@1200 10/17/22 08/09/23 release carvedilol 12.5 mg tablet 12.5 mg PO BID 10/17/22 08/09/23 fenofibrate 160 mg tablet 160 mg PO DAILY 10/17/22 08/09/23 fluticasone propionate 50 2 spray intranasal DAILY 10/17/22 08/09/23 mcg/actuation nasal spray,suspension gabapentin 800 mg tablet 800 mg PO TID 10/17/22 08/09/23 glipizide 10 mg tablet 10 mg PO BIDAC 10/17/22 08/09/23 hydroxyzine pamoate 50 mg capsule 50 mg PO TID PRN Anxiety 10/17/22 08/09/23 insulin aspart U-100 100 unit/mL See Protocol subcut TIDAC 10/17/22 08/09/23 (3 mL) subcutaneous pen (Novolog FlexPen U-100 Insulin aspart) ipratropium 0.5 mg-albuterol 3 mg 3 ml inhalation QID PRN Shortness 10/17/22 08/09/23 (2.5 mg base)/3 mL nebulization Of Breath soln loratadine 10 mg tablet 10 mg PO DAILY@1200 10/17/22 08/09/23 omeprazole 20 mg capsule,delayed 20 mg PO BID@0630,1630 10/17/22 08/09/23 release quetiapine 25 mg tablet 25 mg PO BID PRN anxiety 10/17/22 08/09/23 quetiapine 300 mg tablet 300 mg PO BEDTIME 10/17/22 08/09/23 sertraline 100 mg tablet 100 mg PO DAILY 10/17/22 08/09/23 simvastatin 40 mg tablet 40 mg PO QPM 10/17/22 08/09/23 methadone 10 mg/mL oral 75 mg PO DAILY 10/18/22 08/12/23 concentrate (Methadone Intensol) Previous Rx's ?Medication ?Instructions ?Recorded fluticasone 500 mcg-salmeterol 50 1 ea inhalation BID #60 caps 06/23/21 mcg/dose blistr powdr for inhalation ertapenem 1 gram solution for 1 g IV DAILY #41 ea 08/14/23 injection insulin glargine 100 unit/mL (3 25 unit (0.25 mL) subcut BEDTIME 08/14/23 mL) subcutaneous pen (Lantus #15 mL Solostar U-100 Insulin) ertapenem 1 gram solution for 1 g IV DAILY #22 ea 09/06/23 injection doxycycline hyclate 100 mg capsule 100 mg PO BID 30 days #60 caps 09/25/23 Allergies Allergy/AdvReac Type Severity Reaction Status Date / Time bee pollen [BEE STINGS] Allergy Severe THROAT Verified 12/30/23 01:27 SWELLING raspberry [RASPBERRY] Allergy Severe UNKNOWN Verified 12/30/23 01:27 tadalafil [From CIALIS] Allergy Severe ANAPHYLAXIS Verified 12/30/23 01:27 wool Allergy Intermediate RASH Verified 12/30/23 01:27 Review of Systems Review of Systems: Yes all other systems are reviewed and are negative Neurologic: Denies Sensory deficit (Neuro) [facility] Past Medical History Medical History Diarrhea Moderate persistent asthma Depression Anxiety GERD (gastroesophageal reflux disease) Diabetes Asthma Substance abuse Surgical History No pertinent past surgical history Family History Family History Father Diabetes mellitus Alcohol abuse Social History Social History Household Members: Family Housing: House Do you presently have visiting nurse or other home services: No Unable to assess alcohol history related to: Unable to respond and Unknown Patient Tobacco Use Status: Never used Tobacco Smoked in Last 30 Days: Yes Use of substances other than those prescribed or required for medical reasons: Yes Substance Use Type: Marijuana Advance Directives: No Advance Directives Information Provided: Yes service: No Physical Exam Vital Signs: Vital Signs: Last Vital Signs Temp 97.9 F 12/30/23 04:33 Pulse 75 12/30/23 04:33 Resp 14 12/30/23 04:33 BP 113/62 12/30/23 04:33 Pulse Ox 99 12/30/23 04:33 O2 Del Method Room Air 12/30/23 04:33 BMI result Body Mass Index 29.8 Const: Other: male looking older than stated age in no acute distress Nutritional Appearance: average body habitus Orientation/consciousness: oriented to person and patient oriented x3 Limitations: no limitations HEENT: Head: Yes normal to inspection Ears: external ears normal General nose exam: Normal external nose present Mouth: Normal oral and palatal mucosa present and oropharynx normal Throat: Yes posterior oropharynx normal Eyes: General: appearance normal, both eyes and all related structures Neck: Other: supple Neck: Yes normal visual inspection Chest: Chest palpation & inspection: normal inspection of the chest Resp: Auscultation: clear to auscultation bilaterally Cardio: Jugular venous distension: no JVD Rate: regular rate Rhythm: regular rhythm Heart sounds: S1 normal heart sound present and S2 normal heart sound present GI: Inspection: Yes normal to inspection Palpation (GI): Soft to palpation, nontender and No hepatosplenomegaly present Auscultation: normal bowel sounds : General: Yes no CVA tenderness Back/Spine/Pelvis: Back: no CVA tenderness Skin: General skin exam: no rashes or lesions noted Neuro: General: oriented to person and patient oriented x3 Cranial nerves: Yes CN's II-XII intact bilaterally Motor exam (neuro): 5/5 motor strength present throughout Sensory Exam: No Sensory deficit (Neuro) Extrem: General: Yes normal to inspection Psych: Appearance: grossly normal Course Reevaluation(s) Reevaluation #1: patient was able to sleep, his EKG, troponin and CXR were normal Time: 05:15 Medical Decision Making Differential Diagnosis Differential Diagnoses: The differential diagnosis associated with the presentation includes (cardiac ischemia, congestive heart failure, pneumonia panic attack) Admission/Observation Consideration of admission/observation: Escalation of care including admission/observation considered (upon arrival patient was considered for admission) Lab Data 12/30/23 01:48 12/30/23 01:48 Labs: Lab Results 12/30/23 12/30/23 Range/Units 01:48 03:13 WBC 6.3 (4.8-10.8) X10*3/uL RBC 4.43 L (4.60-5.80) X10*6/uL Hgb 12.4 L (14.0-18.0) g/dl Hct 36.3 L (42.0-52.0) % MCV 81.9 (80.0-98.0) fL MCH 28.0 (27.0-33.0) pg MCHC 34.2 (31.0-36.0) g/dl RDW 12.6 (11.0-16.0) % Plt Count 222 (160-400) X10*3/uL MPV 11.6 (9.4-12.4) fL Immature Gran % (Auto) 0.3 (0.0-0.4) % Neut % (Auto) 45.7 (45-73) % Lymph % (Auto) 37.9 (20-40) % [place] % (Auto) 12.6 H (2-11) % Eos % (Auto) 2.7 (0-4) % Baso % (Auto) 0.8 (0-2) % Lymph # (Auto) 2.4 (1.2-4.9) X10*3/uL [place] # (Auto) 0.8 (0.1-1.2) X10*3/uL Eos # (Auto) 0.2 (0.0-0.4) X10*3/uL Baso # (Auto) 0.1 (0.0-0.2) X10*3/uL Abs Immat Gran (auto) 0.02 (0.00-0.03) X10*3/uL Absolute Neuts (auto) 2.9 (2.0-8.3) x10*3/uL Absolute Nucleated RBC 0.000 (0.0-0.012) X10*3/uL Nucleated RBC % (auto) 0.0 (0.0-0.2) /100WBC Sodium 136 (135-145) mmol/L Potassium 3.8 (3.3-5.1) mmol/L Chloride 100 (96-108) mmol/L Carbon Dioxide 27 (22-29) mmol/L Anion Gap 13 (12-20) BUN 19 H (9-16) mg/dL Creatinine 1.12 (0.5-1.4) mg/dL Estim Creat Clear Calc 86.8 Estimated GFR > 60 Random Glucose 167 H (60-115) mg/dL Calcium 9.6 D (8.4-10.2) mg/dL Total Bilirubin 0.2 (0.0-1.0) mg/dL AST 13 (5-37) U/L ALT 15 (0-40) U/L Alkaline Phosphatase 77 (39-117) U/L Troponin I High Sens 3.8 D (<3.5-35.0) ng/L Total Protein 7.6 (6.5-8.0) g/dL Albumin 4.2 (3.5-5.0) g/dL Influenza Type A (PCR) NEGATIVE (Negative) Influenza Type B (PCR) NEGATIVE (Negative) RSV RNA Qual (PCR) NEGATIVE (Negative) SARS-CoV-2 RNA (RT-PCR) NEGATIVE (Negative) Independent Interpretation I performed an independent interpretation of an: EKG (sinus 99, old inferior qs, no st or twave changes) and Plain X-Ray (No chf, no infiltrate) Independent Historian Clinical information obtained from an independent historian. History obtained from or confirmed by: EMS Prescription Management I considered prescription management with: Antibiotic (no infiltrate on xray) Chronic Conditions Patient?s care impacted by: Hypertension Social Determinants Patient?s care significantly limited by Social Determinants of Health including: Low income Discharge Plan Discharge Clinical Impression: Chest pain, Shortness of breath, Anxiety Patient Disposition: Home, Self-Care Instructions: Chest Pain (ED), Anxiety (ED), Shortness of Breath (ED) Prescriptions: No Action fluticasone propion-salmeterol 500-50 mcg/dose blister with device 1 ea inhalation BID Qty: 60 6RF quetiapine 25 mg tablet 25 mg PO BID PRN (Reason: anxiety) carvedilol 12.5 mg tablet 12.5 mg PO BID ipratropium-albuterol 0.5 mg-3 mg(2.5 mg base)/3 mL solution for nebulization 3 ml inhalation QID PRN (Reason: Shortness Of Breath) quetiapine 300 mg tablet 300 mg PO BEDTIME glipizide 10 mg tablet 10 mg PO BIDAC sertraline 100 mg tablet 100 mg PO DAILY hydroxyzine pamoate 50 mg capsule 50 mg PO TID PRN (Reason: Anxiety) aspirin 81 mg tablet,delayed release (DR/EC) 81 mg PO DAILY@1200 amitriptyline 50 mg tablet 50 mg PO BEDTIME simvastatin 40 mg tablet 40 mg PO QPM gabapentin 800 mg tablet 800 mg PO TID omeprazole 20 mg capsule,delayed release(DR/EC) 20 mg PO BID@0630,1630 albuterol sulfate [Ventolin HFA] 90 mcg/actuation HFA aerosol inhaler 2 puff INHALATION QID PRN (Reason: Shortness Of Breath) fluticasone propionate 50 mcg/actuation spray,suspension 2 spray intranasal DAILY acetaminophen [Mapap (acetaminophen)] 500 mg capsule 500 mg PO Q8H PRN (Reason: Pain (Scale Score 1-3)) loratadine 10 mg tablet 10 mg PO DAILY@1200 insulin aspart U-100 [Novolog FlexPen U-100 Insulin] 100 unit/mL (3 mL) insulin pen See Protocol subcut TIDAC Protocol: Insulin Correction Scale Less than or equal to 110 ---- Give (units): 0 111 to 150 Give (units): 0 151 to 200 Give (units): 2 201 to 250 Give (units): 4 251 to 300 Give (units): 6 301 to 350 Give (units): 8 Greater than 350 Give (units): 10 Call MD if Blood Glucose > : 350 Rx Instructions: SLIDING SCALE 100-149=12 UNITS, 150-199=14 UNITS, 200-249=16 UNITS, 250-299=18 UNITS, 300 AND ABOVE-20 UNITS fenofibrate 160 mg tablet 160 mg PO DAILY methadone [Methadone Intensol] 10 mg/mL Concentrate 75 mg PO DAILY insulin glargine [Lantus Solostar U-100 Insulin] 100 unit/mL (3 mL) insulin pen 25 unit subcut BEDTIME Qty: 15 0RF ertapenem 1 gram recon soln 1 g IV DAILY Qty: 41 0RF Rx Instructions: ending 07/25 ertapenem 1 gram recon soln 1 g IV DAILY Qty: 22 0RF doxycycline hyclate 100 mg capsule 100 mg PO BID 30 Days Qty: 60 0RF Referrals: [facility] [Primary Care Provider] - 3 days Print Language: Tamazight
[2023-12-30 05:40] VITALS: BP 113/62; PULSE 75; RESP 14; TEMP 36.6; O2SAT 99
== END 2023-12-30 05:40 | disposition home or self-care (01) ==
PROVIDERS: Emergency Provider Emergency Medicine
DX: R06.02 Shortness of breath (principal); R07.9 Chest pain, unspecified; F41.0 Panic disorder [episodic paroxysmal anxiety]; E11.9 Type 2 diabetes mellitus without complications; R86.9 Unspecified abnormal finding in specimens from male genital organs; Z79.899 Other long term (current) drug therapy; Z03.818 Encounter for observation for suspected exposure to other biological agents ruled out
CPT/HCPCS: 0241U; 36415; 71046; 80053; 84484; 85025; 93005; 99284

== ENCOUNTER 2024-01-24 17:13 | Emergency (ER) | payer OTHER, SELFPAY ==
--- NOTE | ~2024-01-24 | XR_ITS ---
EXAMINATION: XR CHEST CLINICAL INFORMATION: Shortness of breath COMPARISON: Chest x-ray on 12/30/2023 TECHNIQUE: 2 views of the chest were obtained. FINDINGS: No significant abnormality is noted involving the heart, lungs, mediastinum, bony thorax or soft tissues. XR/XR chest 2V IMPRESSION: Unremarkable examination. Electronically signed by: Adele Adam MD 01/24/2024 09:18 PM EDT RP
[2024-01-24 17:22] VITALS: BP 94/67; PULSE 68; RESP 16; TEMP 36.7; O2SAT 96; BMI 31.8
--- NOTE | 2024-01-24 17:31 | ECG_ITS ---
Test Reason : shortness of breath Blood Pressure : / mmHG Vent. Rate : 065 BPM Atrial Rate : 065 BPM P-R Int : 186 ms QRS Dur : 108 ms QT Int : 410 ms P-R-T Axes : 000 187 160 degrees QTc Int : 426 ms Limb leads reversal Sinus rhythm with occasional Premature ventricular complexes Right superior axis deviation Nonspecific T wave abnormality Abnormal ECG When compared with ECG of 30-DEC-2023 01:23, Premature ventricular complexes are now Present Vent. rate has decreased BY 34 BPM QRS axis Shifted left QT has shortened Referred By: Generic ED Physician Electronically Signed By:Vini Gil
[2024-01-24 17:37] LABS: Basophils Percent Auto 0.6 % (0-2); Eosinophils Absolute Auto 0.2 X10*3/uL (0.0-0.4); Eosinophils Percent Auto 2.4 % (0-4); Hematocrit 36.4 % (42.0-52.0); Hemoglobin 12.4 g/dl (14.0-18.0); Imm Gran Abs Auto 0.02 X10*3/uL (0.00-0.03); Imm Gran Pct Auto 0.3 % (0.0-0.4); Lymphocytes Absolute Auto 1.7 X10*3/uL (1.2-4.9); Lymphocytes Percent Auto 24.4 % (20-40); MANUAL DIFF FLAG NO; Mean Corpuscular HGB Conc 34.1 g/dl (31.0-36.0); Mean Corpuscular Hemoglobin 27.9 pg (27.0-33.0); Mean Corpuscular Volume 81.8 fL (80.0-98.0); Mean Platelet Volume 11.7 fL (9.4-12.4); Monocytes Absolute Auto 0.7 X10*3/uL (0.1-1.2); Monocytes Percent Auto 10.6 % (2-11); Neutrophils Absolute Auto 4.3 x10*3/uL (2.0-8.3); Neutrophils Percent Auto 61.7 % (45-73); Platelet Count 209 X10*3/uL (160-400); Red Blood Count 4.45 X10*6/uL (4.60-5.80); Red Cell Distribution Width 12.5 % (11.0-16.0)
[2024-01-24 18:00] VITALS: BP 112/74; PULSE 67; RESP 13; TEMP 36.7; O2SAT 98
[2024-01-24 18:01] LABS: Troponin-I High Sensitivity 3.7 ng/L (<3.5-35.0)
[2024-01-24 18:09] LABS: Alanine Aminotransferase 18 U/L (0-40); Alkaline Phosphatase 82 U/L (39-117); Anion Gap 11 (12-20); Aspartate Amino Transferase 16 U/L (5-37); Bilirubin Total 0.2 mg/dL (0.0-1.0); Blood Urea Nitrogen 19 mg/dL (9-16); Calcium 9.3 mg/dL (8.4-10.2); Carbon Dioxide 28 mmol/L (22-29); Chloride 98 mmol/L (96-108); Creatinine Clr Calc Pharmacy 88.7; Estimated Glomerular Filt Rate > 60; Ethanol < 10 mg/dL; Glucose Random 266 mg/dL (60-115); Potassium 4.7 mmol/L (3.3-5.1); Sodium 132 mmol/L (135-145); Total Protein 7.3 g/dL (6.5-8.0)
[2024-01-24 19:26] LABS: Influenza A PCR NEGATIVE (Negative); Influenza B PCR NEGATIVE (Negative); Resp Syncy Virus RNA Qual PCR NEGATIVE (Negative); SARS COV2 PCR INHOUSE NEGATIVE (Negative)
[2024-01-24 19:28] VITALS: BP 130/76; PULSE 69; RESP 16; TEMP 36.8; O2SAT 97
--- NOTE | 2024-01-24 19:28 | MHC.EDTECH ---
This tech took over care of patient at 1900,rounded and introduced self to patient,vitals taken,pt is resting quietly,call palma in reach
[2024-01-24 21:33] LABS: Amphetamine Screen Urine Not Detected (Not Detect); Barbiturates, Urine Not Detected (Not Detect); Benzodiazepines Screen Urine Not Detected (Not Detect); Buprenorphine Scr Not Detected (Not Detect); Cannabinoid Screen Urine Not Detected (Not Detect); Cocaine Screen Urine POSITIVE (Not Detect); Fentanyl, urine Not Detected (Not Detect); Methadone Screen, Urine Positive (Not Detect); Opiate Screen Urine Not Detected (Not Detect); Oxycodone Screen Urine Not Detected (Not Detect); Phencyclidine Screen Urine Not Detected (Not Detect)
[2024-01-24 21:50] VITALS: BP 156/84; PULSE 74; RESP 18; TEMP 36.8; O2SAT 99
--- NOTE | 2024-01-24 22:07 | ED.SOB ---
HPI - SOB/Dyspnea General Chief Complaint: Dyspnea Stated Complaint: diff breathing Time Seen by Provider: 01/24/24 17:35 Related Data Home Medications ?Medication ?Instructions ?Recorded ?Confirmed acetaminophen 500 mg capsule 500 mg PO Q8H PRN Pain (Scale 10/17/22 08/09/23 (Mapap (acetaminophen)) Score 1-3) albuterol sulfate 90 mcg/actuation 2 puff inhalation QID PRN 10/17/22 08/09/23 aerosol inhaler (Ventolin HFA) Shortness Of Breath amitriptyline 50 mg tablet 50 mg PO BEDTIME 10/17/22 08/09/23 aspirin 81 mg tablet,delayed 81 mg PO DAILY@1200 10/17/22 08/09/23 release carvedilol 12.5 mg tablet 12.5 mg PO BID 10/17/22 08/09/23 fenofibrate 160 mg tablet 160 mg PO DAILY 10/17/22 08/09/23 fluticasone propionate 50 2 spray intranasal DAILY 10/17/22 08/09/23 mcg/actuation nasal spray,suspension gabapentin 800 mg tablet 800 mg PO TID 10/17/22 08/09/23 glipizide 10 mg tablet 10 mg PO BIDAC 10/17/22 08/09/23 hydroxyzine pamoate 50 mg capsule 50 mg PO TID PRN Anxiety 10/17/22 08/09/23 insulin aspart U-100 100 unit/mL See Protocol subcut TIDAC 10/17/22 08/09/23 (3 mL) subcutaneous pen (Novolog FlexPen U-100 Insulin aspart) ipratropium 0.5 mg-albuterol 3 mg 3 ml inhalation QID PRN Shortness 10/17/22 08/09/23 (2.5 mg base)/3 mL nebulization Of Breath soln loratadine 10 mg tablet 10 mg PO DAILY@1200 10/17/22 08/09/23 omeprazole 20 mg capsule,delayed 20 mg PO BID@0630,1630 10/17/22 08/09/23 release quetiapine 25 mg tablet 25 mg PO BID PRN anxiety 10/17/22 08/09/23 quetiapine 300 mg tablet 300 mg PO BEDTIME 10/17/22 08/09/23 sertraline 100 mg tablet 100 mg PO DAILY 10/17/22 08/09/23 simvastatin 40 mg tablet 40 mg PO QPM 10/17/22 08/09/23 methadone 10 mg/mL oral 75 mg PO DAILY 10/18/22 08/12/23 concentrate (Methadone Intensol) Previous Rx's ?Medication ?Instructions ?Recorded fluticasone 500 mcg-salmeterol 50 1 ea inhalation BID #60 caps 06/23/21 mcg/dose blistr powdr for inhalation ertapenem 1 gram solution for 1 g IV DAILY #41 ea 08/14/23 injection insulin glargine 100 unit/mL (3 25 unit (0.25 mL) subcut BEDTIME 08/14/23 mL) subcutaneous pen (Lantus #15 mL Solostar U-100 Insulin) ertapenem 1 gram solution for 1 g IV DAILY #22 ea 09/06/23 injection doxycycline hyclate 100 mg capsule 100 mg PO BID 30 days #60 caps 09/25/23 Allergies Allergy/AdvReac Type Severity Reaction Status Date / Time bee pollen [BEE STINGS] Allergy Severe THROAT Verified 01/24/24 17:24 SWELLING raspberry [RASPBERRY] Allergy Severe UNKNOWN Verified 01/24/24 17:24 tadalafil [From CIALIS] Allergy Severe ANAPHYLAXIS Verified 01/24/24 17:24 wool Allergy Intermediate RASH Verified 01/24/24 17:24 [facility] Past Medical History Medical History Diarrhea Moderate persistent asthma Depression Anxiety GERD (gastroesophageal reflux disease) Diabetes Asthma Substance abuse Surgical History No pertinent past surgical history Family History Family History Father Diabetes mellitus Alcohol abuse Social History Social History Household Members: Family Housing: House Do you presently have visiting nurse or other home services: No Unable to assess alcohol history related to: Unable to respond and Unknown Patient Tobacco Use Status: Never used Tobacco Use of substances other than those prescribed or required for medical reasons: Yes Substance Use Type: Crack/Cocaine and Marijuana Advance Directives: No Advance Directives Information Provided: No Do you have a plan to hurt others: No Plan service: No Physical Exam Vital Signs: Vital Signs: Last Vital Signs Temp 98.3 F 01/24/24 21:50 Pulse 74 01/24/24 21:50 Resp 18 01/24/24 21:50 BP 156/84 H 01/24/24 21:50 Pulse Ox 99 01/24/24 21:50 O2 Del Method Room Air 01/24/24 21:50 BMI result Body Mass Index 31.8 Medical Decision Making Lab Data 01/24/24 17:33 01/24/24 17:33 Labs: Lab Results 01/24/24 01/24/24 01/24/24 Range/Units 17:33 18:41 21:15 WBC 7.0 (4.8-10.8) X10*3/uL RBC 4.45 L (4.60-5.80) X10*6/uL Hgb 12.4 L (14.0-18.0) g/dl Hct 36.4 L (42.0-52.0) % MCV 81.8 (80.0-98.0) fL MCH 27.9 (27.0-33.0) pg MCHC 34.1 (31.0-36.0) g/dl RDW 12.5 (11.0-16.0) % Plt Count 209 (160-400) X10*3/uL MPV 11.7 (9.4-12.4) fL Immature Gran % (Auto) 0.3 (0.0-0.4) % Neut % (Auto) 61.7 (45-73) % Lymph % (Auto) 24.4 (20-40) % [place] % (Auto) 10.6 (2-11) % Eos % (Auto) 2.4 (0-4) % Baso % (Auto) 0.6 (0-2) % Lymph # (Auto) 1.7 (1.2-4.9) X10*3/uL [place] # (Auto) 0.7 (0.1-1.2) X10*3/uL Eos # (Auto) 0.2 (0.0-0.4) X10*3/uL Baso # (Auto) 0.0 (0.0-0.2) X10*3/uL Abs Immat Gran (auto) 0.02 (0.00-0.03) X10*3/uL Absolute Neuts (auto) 4.3 (2.0-8.3) x10*3/uL Absolute Nucleated RBC 0.000 (0.0-0.012) X10*3/uL Nucleated RBC % (auto) 0.0 (0.0-0.2) /100WBC Sodium 132 L (135-145) mmol/L Potassium 4.7 D (3.3-5.1) mmol/L Chloride 98 (96-108) mmol/L Carbon Dioxide 28 (22-29) mmol/L Anion Gap 11 L (12-20) BUN 19 H (9-16) mg/dL Creatinine 1.13 (0.5-1.4) mg/dL Estim Creat Clear Calc 88.7 Estimated GFR > 60 Random Glucose 266 H (60-115) mg/dL Calcium 9.3 (8.4-10.2) mg/dL Total Bilirubin 0.2 (0.0-1.0) mg/dL AST 16 (5-37) U/L ALT 18 (0-40) U/L Alkaline Phosphatase 82 (39-117) U/L Troponin I High Sens 3.7 (<3.5-35.0) ng/L Total Protein 7.3 (6.5-8.0) g/dL Albumin 4.0 (3.5-5.0) g/dL Urine Opiates Screen Not Detected (Not Detect) Ur Buprenorphine Scrn Not Detected (Not Detect) ng/mL Ur Oxycodone Screen Not Detected (Not Detect) ng/mL Urine Methadone Screen Positive H (Not Detect) ng/mL Urine Fentanyl Screen Not Detected (Not Detect) Ur Barbiturates Screen Not Detected (Not Detect) Ur Phencyclidine Scrn Not Detected (Not Detect) Ur Amphetamines Screen Not Detected (Not Detect) U Benzodiazepines Scrn Not Detected (Not Detect) Urine Cocaine Screen POSITIVE H (Not Detect) U Marijuana (THC) Screen Not Detected (Not Detect) Ethyl Alcohol < 10 mg/dL Influenza Type A (PCR) NEGATIVE (Negative) Influenza Type B (PCR) NEGATIVE (Negative) RSV RNA Qual (PCR) NEGATIVE (Negative) SARS-CoV-2 RNA (RT-PCR) NEGATIVE (Negative) Discharge Plan Discharge Clinical Impression: Constipation Patient Disposition: Home, Self-Care Instructions: Constipation (ED) Additional Instructions: All of your labs including a viral panel were normal. There were no concerning changes on your chest x-ray, I do believe your sense of shortness of breath is secondary to your constipation. See home care instructions. You need to start using an [id number] stool softener such as Colace, twice daily. In addition, you need to use [id number] MiraLax, per package instructions, you can drank it every 1-2 hours, until you begin having multiple large volume bowel movements. Follow up with your primary care provider as needed. Prescriptions: No Action fluticasone propion-salmeterol 500-50 mcg/dose blister with device 1 ea inhalation BID Qty: 60 6RF quetiapine 25 mg tablet 25 mg PO BID PRN (Reason: anxiety) carvedilol 12.5 mg tablet 12.5 mg PO BID ipratropium-albuterol 0.5 mg-3 mg(2.5 mg base)/3 mL solution for nebulization 3 ml inhalation QID PRN (Reason: Shortness Of Breath) quetiapine 300 mg tablet 300 mg PO BEDTIME glipizide 10 mg tablet 10 mg PO BIDAC sertraline 100 mg tablet 100 mg PO DAILY hydroxyzine pamoate 50 mg capsule 50 mg PO TID PRN (Reason: Anxiety) aspirin 81 mg tablet,delayed release (DR/EC) 81 mg PO DAILY@1200 amitriptyline 50 mg tablet 50 mg PO BEDTIME simvastatin 40 mg tablet 40 mg PO QPM gabapentin 800 mg tablet 800 mg PO TID omeprazole 20 mg capsule,delayed release(DR/EC) 20 mg PO BID@0630,1630 albuterol sulfate [Ventolin HFA] 90 mcg/actuation HFA aerosol inhaler 2 puff INHALATION QID PRN (Reason: Shortness Of Breath) fluticasone propionate 50 mcg/actuation spray,suspension 2 spray intranasal DAILY acetaminophen [Mapap (acetaminophen)] 500 mg capsule 500 mg PO Q8H PRN (Reason: Pain (Scale Score 1-3)) loratadine 10 mg tablet 10 mg PO DAILY@1200 insulin aspart U-100 [Novolog FlexPen U-100 Insulin] 100 unit/mL (3 mL) insulin pen See Protocol subcut TIDAC Protocol: Insulin Correction Scale Less than or equal to 110 ---- Give (units): 0 111 to 150 Give (units): 0 151 to 200 Give (units): 2 201 to 250 Give (units): 4 251 to 300 Give (units): 6 301 to 350 Give (units): 8 Greater than 350 Give (units): 10 Call MD if Blood Glucose > : 350 Rx Instructions: SLIDING SCALE 100-149=12 UNITS, 150-199=14 UNITS, 200-249=16 UNITS, 250-299=18 UNITS, 300 AND ABOVE-20 UNITS fenofibrate 160 mg tablet 160 mg PO DAILY methadone [Methadone Intensol] 10 mg/mL Concentrate 75 mg PO DAILY insulin glargine [Lantus Solostar U-100 Insulin] 100 unit/mL (3 mL) insulin pen 25 unit subcut BEDTIME Qty: 15 0RF ertapenem 1 gram recon soln 1 g IV DAILY Qty: 41 0RF Rx Instructions: ending 07/25 ertapenem 1 gram recon soln 1 g IV DAILY Qty: 22 0RF doxycycline hyclate 100 mg capsule 100 mg PO BID 30 Days Qty: 60 0RF Print Language: Citizen [place]
[2024-01-24 22:21] VITALS: BP 156/84; PULSE 74; RESP 18; TEMP 36.8; O2SAT 99
== END 2024-01-24 22:22 | disposition home or self-care (01) ==
PROVIDERS: Physician Assistant Medical; Emergency Provider Student in an Organized Health Care Education/Training Program
DX: K59.00 Constipation, unspecified (principal); Z03.818 Encounter for observation for suspected exposure to other biological agents ruled out; J45.909 Unspecified asthma, uncomplicated; E11.9 Type 2 diabetes mellitus without complications; F19.10 Other psychoactive substance abuse, uncomplicated; Z79.899 Other long term (current) drug therapy; Z79.4 Long term (current) use of insulin
CPT/HCPCS: 0241U; 36415; 71046; 80053; 80307; 84484; 85025; 93005; 99284; 99285

== ENCOUNTER → 2024-01-24 17:31 | Outpatient (BNV) | payer OTHER, SELFPAY | PROVIDERS: Emergency Provider Student in an Organized Health Care Education/Training Program; Visit Provider Internal Medicine Cardiovascular Disease | DX: R94.31 Abnormal electrocardiogram [ECG] [EKG] (principal) | CPT/HCPCS: 93010 ==

== ENCOUNTER 2024-03-14 13:45 | Outpatient (REF) | payer OTHER, SELFPAY ==
--- OUTSIDE RECORDS SUMMARY | 2024-03-14 13:48 | XMS_ITS | Data Portability ---
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 OTHER [facility] OTHER Assessment Encounter Date Assessment Date Assessment LastModified by Organization Details LastModified Time 11/02/2023 11/02/2023 Mr. Mckinley Berry is a 58yoM w/ a PmHx of DM2 and diabetic foot wounds who is seen today as an RN requested visit for evaluation of foot wounds. Mr. Berry reports that he has had wounds on the bottom of his second toe on each foot. He has been taking doxycycline for the past month (and previously had IV antibiotics via PICC) and believes the wounds are improving. He has noticed his blood sugars have been all over the place despite trying to be compliant with his prescribed regimen, noting that his glipizide was recently discontinued. He has a blood sugar log that shows normal blood sugars and variations up to 400s. He denies fevers/chills or any other concerns but does not know who is helping manage his wounds or blood sugars and has no upcoming appointments. VSS. Medic on site uploads pictures that show b/l small ulcerations of the second toe with piper erythema on the right. POC glucose 200. He has no overt signs of worsening infection (and reports improvement on doxy) and still has a significant amount of the doxycycline course left to continue. No need to add additional antibiotics at this time, but would significantly benefit from an in-person PCP appointment for assessment/lana miller follow up of these wounds and improved blood sugar control. [email or web address] Not available 11/02/2023 14:28:37 01/23/2024 01/23/2024 service called for rash found 58 yom with hx HTN CKDIII T2DM c/b toe amp c/o 2-3 new redness, drainage from toe on L foot denies fever, chills reports walking more recently without diabetic shoes 2 month prior completed course doxycycline for foot wound with good effect VSS, noted elev BP c/w HTN toe wound as pictured reported exman negative for drainage POC BG 228, was entered 328 in error #Cellulitis c/b T2DM prior toe amp prior course of doxy -restart PO doxy 100 mg PO bid -doxy 200 mg PO x1 -notify service if worsening or no improvement -otherwise return to primary team udesdeonna Not available 01/23/2024 17:51:00 Plan of Treatment Reminders Order Date Submit Date Provider Last Modified By Organization Details Last Modified Time Details Appointments None recorded. Lab None recorded. Referral None recorded. Procedures None recorded. Surgeries None recorded. Imaging None recorded. Medication Orders doxycycline hyclate 100 mg capsule 2023 [facility], [address] [place] [address], [id number], 10:35:27 doxycycline hyclate 100 mg tablet 2023 [facility], [address] [place] [address], [id number], 17:45:25 Patient TargetsNo targets recorded. Patient InstructionsNo instructions recorded. Reason for Referral None Reported. Medical Equipment None Reported. Allergies Allergen ID Allergen Name Allergen Category Reaction Reaction Severity Criticality Documentation Date Start Date Code Code System Note Provider Name and Address Organization Details Recorded Time 5761 Cialis medicatio n Not available Not available Not available 11/02/2023 17289 3 RxNorm Mabel Goddard MD [address] [place] [address],[address], [place], [phone], [employer] 13:39:30 Medications Name Sig Start Date Stop Date Status Note LastModified by Organization Details LastModified Time medbox status USE DIRECTED active Not Available Not Available No t Available quetiapine 25 mg tablet TAKE 1 TABLET BY MOUTH TWICE DAILY NEEDED FOR ANXIETY active Not Available Not Available No t Available metformin 500 mg tablet TAKE 1 TABLET BY MOUTH TWICE DAILY IN THE MORNING AND IN THE EVENING active Not Available Not Available No t Available doxycycline hyclate 100 mg capsule TAKE 1 CAPSULE BY MOUTH TWICE DAILY FOR 10 DAYS active Not Available Not Available No t Available carvedilol 12.5 mg tablet TAKE 1 TABLET BY MOUTH TWICE DAILY IN THE MORNING AND IN THE EVENING WITH FOOD active Not Available Not Available No t Available ipratropium 0.5 mg-albuterol 3 mg (2.5 mg base)/3 mL nebulization soln INHALE 1 AMPULE USING A NEBULIZER FOUR TIMES DAILY NEEDED active Not Available Not Available No t Available quetiapine 300 mg tablet TAKE 1 TABLET BY MOUTH AT BEDTIME active Not Available Not Available No t Available glipizide 10 mg tablet TAKE 1 TABLET BY MOUTH TWICE DAILY IN THE MORNING AND IN THE EVENING BEFORE MEALS active Not Available Not Available No t Available sertraline 100 mg tablet TAKE 1 TABLET BY MOUTH EVERY MORNING active Not Available Not Available No t Available hydroxyzine pamoate 50 mg capsule TAKE 1 CAPSULE BY MOUTH THREE TIMES DAILY NEEDED FOR SEVERE PAIN active Not Available Not Available No t Available aspirin 81 mg tablet,delay ed release TAKE 1 TABLET BY MOUTH EVERYDAY AT NOON active Not Available Not Available No t Available amitriptylin e 50 mg tablet TAKE 1 TABLET BY MOUTH AT BEDTIME active Not Available Not Available No t Available simvastatin 40 mg tablet TAKE 1 TABLET BY MOUTH EVERY EVENING active Not Available Not Available No t Available gabapentin 800 mg tablet TAKE 1 TABLET BY MOUTH THREE TIMES DAILY IN THE MORNING, EVENING, AND BEDTIME active Not Available Not Available Not Available Ear Wax Removal Drops 6.5 % PLACE 5 DROPS IN EACH EAR TWICE DAILY FOR 5 DAYS active Not Available Not Available N ot Available Mapap (acetaminoph en) 500 mg capsule TAKE 1 CAPSULE BY MOUTH EVERY 8 HOURS NEEDED FOR PAIN OR FOR FEVER active Not Available Not Available No t Available fluticasone 500 mcg-salmeter ol 50 mcg/dose blistr powdr for inhalation INHALE 1 PUFF TWICE DAILY. RINSE MOUTH AFTER USING. active Not Available Not Available No t Available omeprazole 20 mg capsule,holli yed release TAKE 1 CAPSULE BY MOUTH TWICE DAILY IN THE MORNING AND IN THE EVENING active Not Available Not Available No t Available sodium chloride 0.9 % intravenous solution active Not Available Not Available Not Available fluticasone propionate 50 mcg/actuatio n nasal spray,suspen adan USE 2 SPRAYS IN EACH NOSTRIL ONCE DAILY active Not Available Not Available N ot Available loratadine 10 mg tablet TAKE 1 TABLET BY MOUTH EVERYDAY AT NOON active Not Available Not Available No t Available amoxicillin 875 mg-potassium clavulanate 125 mg tablet TAKE 1 TABLET BY MOUTH TWICE DAILY FOR 7 DAYS active Not Available Not Available No t Available Ventolin HFA 90 mcg/actuatio n aerosol inhaler INHALE 2 PUFFS BY MOUTH FOUR TIMES DAILY NEEDED active Not Available Not Available No t Available ertapenem 1 gram solution for injection active Not Available Not Available No t Available Novolog FlexPen U-100 Insulin aspart 100 unit/mL (3 mL) subcutaneous INJECT 20 UNITS SUBCUTANEOU SLY THREE TIMES DAILY BEFORE MEALS 100-149=12 UNITS, 150-199=14 UNITS, 200-249=16 UNITS, 250-299=18 UNITS, 300 AND ABOVE=20 UNITS active Not Available Not Available No t Available Alcohol Prep Pads USE DIRECTED TEST BLOOD SUGAR & INJECTING INSULIN active Not Available Not Available No t Available fenofibrate 160 mg tablet TAKE 1 TABLET BY MOUTH EVERYDAY AT NOON active Not Available Not Available No t Available FreeStyle Lite Strips TEST BLOOD SUGAR FOUR TIMES DAILY active Not Available Not Available Not Available Lantus Solostar U-100 Insulin 100 unit/mL (3 mL) subcutaneous pen INJECT 45 UNITS SUBCUTANEOU SLY AT BEDTIME active Not Available Not Available No t Available TRUEplus Lancets 33 gauge TEST BLOOD SUGAR FOUR TIMES DAILY active Not Available Not Available Not Available Pentips Pen Needle 32 gauge x 5/32 USE DIRECTED FOUR TIMES DAILY active Not Available Not Available No t Available Agustina-Dryl 25 mg tablet TAKE 1 TABLET BY MOUTH AT BEDTIME active Not Available Not Available No t Available Vitals Date Recorded Oxygen saturation Oxygen saturation in Arterial blood by Pulse oximetry Respiratory rate Body temperature Body weight Body height Heart rate Systolic blood pressure Diastolic blood pressure Provider Name and Address Organization Details Last Updated DateTime 4 99 % 99 % 16 /min 97.1 [degF] 52980.3 2 g 182.88 cm 84 /min 122 mm[Hg] 83 mm[Hg] Not Available [employer] [facility] [employer] 4 13:35:39 Date Recorded Body weight Body height Body temperature Oxygen saturation Oxygen saturation in Arterial blood by Pulse oximetry Respiratory rate Heart rate Systolic blood pressure Diastolic blood pressure Provider Name and Address Organization Details Last Updated DateTime 4 75145.6 g 172.72 cm 98.4 [degF] 98 % 98 % 14 /min 80 /min 138 mm[Hg] 72 mm[Hg] Not Available [facility] 17:34:38 Social History None recorded. Functional Status None recorded. Mental Status None recorded. Family History Nothing Reported. Medical History No medical history recorded. Past Encounters Encounter ID Performer Location Encounter Start Date Encounter Closed Date Diagnosis/Indication Diagnosis SNOMED-CT Code Diagnosis ICD10 Code [id number] Mabel Goddard MD [facility] - [facility] [address] [place] [phone] 11/02/2023 13:35:26 11/05/2023 21:50:53 Diabetic foot ulcer 530338724 E13.621 [id number] Juan Antonio Sun MD Main - [address] [address] 01/23/2024 17:34:23 01/24/2024 00:02:04 Cellulitis of left lower limb [id number] L03.116 Health Concerns Section Related Observation LastModified by Organization Detai ls LastModified Time None Recorded Concern Status LastModified by Organization Details LastModified Time None Recorded Advance Directives Directive None Recorded Payers Encounter Date Sequence Insurance Name Policy Number Policy Dubose Covered Member ID Dubose Member ID Guarantor Name 11/02/[address] [facility] - DOS ON OR AFTER 2022 - DUAL ELIGIBLE - SHELTER OPTIONS AND ONE CARE (MEDICARE REPLACEMENT/ADV ANTAGE - HMO) Mckinley Berry [id number] Mckinley Berry 01/23/[address] [facility] - DOS ON OR AFTER 2022 - DUAL ELIGIBLE - SHELTER OPTIONS AND ONE CARE (MEDICARE REPLACEMENT/ADV ANTAGE - HMO) Mckinley Berry [id number] Mckinley Berry Notes Date Note Type Note Provider Name and Address Organization Details Recorded Time 11/02/2023 text/html HPI: blood sugar in 300s, open wound near toes on right foot Member is followed by ID due to h/o sepsis .................... .................... .................... .................... .................... .................... .................... . [facility] Nurse Triage Notes (Amy Johnston): Chief Complaints: Wound Care PMH: Diabetes, Hypertension Other Allergies: tadalafil Comments: Classroom Assistant verified the member's name//address and phone number. Member is a 58 yr old female PMH > DM Allergies >tadalafil Nurse calling for member with BS over 300 and open wound on right foot, Pt was in the hospital for iv antibiotics and had a PICC line for infections in the past. RN told him to call ID . denies any f/c/n/v/d. Pt takes lantus and took a shot at HS 45 units, and ISS Education provided on the response time and the member was advised to monitor reported s/s and seek emergency treatment if needed .................... .................... .................... .................... .................... .................... .................... . Dormitory Counselor Note From Cheng Sapp[facility] Pt complaining of non healing foot wound. Pt missed PCP appointment and triage nurse called to touch base with him and upon learning of elevated blood sugars and foot wound requested visit on pt's behalf. Pt states he had extensive wounds across all 10 toes requiring 6 weeks of PICC antibiotics. Wounds had healed and started to come back in the last week or so affecting the 2nd toe. Pt still on doxycycline for infection, and admits to having missed a few doses . V/S taken as listed. Glucose check at 212 mg/dl. Pt afebrile. Affected toe's examined with images sent to [facility]. Consulted with [facility] Dr. Goddard who said she would put in request to PCP to have patient seen sooner to address issues and get possible xray of the foot. Reviewed red flags for ED. Patient education provided. .................... .................... .................... .................... .................... .................... .................... . Disposition: Yvonne Goddard MD [address] [place] [address],[address], [place], [phone], [employer] 11/02/2023 15:00:39 01/23/2024 text/html HPI: anxiety, chronic pain, cardiomyopathy, Stage 3 chronic kidneyPt has been having high blood sugars, is not using sliding scale as instructed. reports mental confusion with some anxiety. Pt is on methadone treatment. Bilateral feet with scabbed/open areas on second toes next to great toes. Please assess blood sugar status, and wounds on toes. .................... .................... .................... .................... .................... .................... .................... . [facility] Nurse Triage Notes (Amy Johnston): Chief Complaints: Altered Mental Status, Anxiety, Diabetes Related, Wound Care PMH: COPD/Asthma, Diabetes, Hypertension Other Allergies: raspberry, hornet venom, lanolin, tadalafil Comments: [facility] RN DID NOT NEED FURTHER INFO Dormitory Counselor Organization Information for Dallin Lawrence Business Legal Name: [facility] Transportation Address: [address] [place] [address], [place] [address], Laundry Assistant: Kehinde JACOBSON No.: [id number] Dormitory Counselor POC Test Results from Dallin Lawrence Blood Glucose Measurement (17:15:08) Blood Glucose: 328 mg/dL .................... .................... .................... .................... .................... .................... .................... . Dormitory Counselor Note From Dallin Lawrence: Patient conscious and alert, seated on chair. Patient reports bleeding from left second toe. Patient reports he had been struggling with the wounds on his feet healing for the last year, recently wounds had almost healed up. Patient states to began bleeding times three days ago. Patient has been washing and using triple antibiotic ointment. Patient denies any pain or other complaints. Patient states he checks his sugar and uses insulin on a sliding scale every day. Patient states blood sugars between 150 and 300. Patient denies nausea, vomiting diarrhea, excessive urination, thirst, or any other pain or complaints.Patient pink warm dry secondary exam unremarkable. Wounds as pictured in documents. No redness, extra heat, discolored discharge, or current bleeding noted.[facility] orders doxycycline 200 mg PO now and will call in more to patient? s local pharmacy. Supportive care, including cleaning and use of triple antibiotic ointment discussed. Red flags, and patient education discussed.Note: [id number]. medical charge entry specialist in test section of this report incorrect. Patient? s BGL equals 228 MG/DL [facility] Medication Orders: doxycycline hyclate 100 mg tablet: Administered .................... .................... .................... .................... .................... .................... .................... . Disposition: Fulfilled Juan Antonio Sun MD [address] [facility],[address] [facility], [place], [address], JAH SOLER 01/23/2024 20:59:30
== END 2024-03-14 13:46 | disposition home or self-care (01) ==
LOC: HO.HHCX 13:45
PROVIDERS: Visit Provider Family Medicine
DX: L97.529 Non-pressure chronic ulcer of other part of left foot with unspecified severity (principal); L97.519 Non-pressure chronic ulcer of other part of right foot with unspecified severity
CPT/HCPCS: 73630

== ENCOUNTER 2024-03-25 12:07 | Outpatient (REF) | payer OTHER, SELFPAY ==
--- NOTE | ~2024-03-25 | XR_ITS ---
EXAMINATION: XR FOOT, BILATERAL CLINICAL INDICATION: Ulcer of both feet, unspecified ulcer stage, history of osteomyelitis, foot ulcers bilaterally. Patient states right foot is worse than right? COMPARISON: CT left foot 08/10/2023. Left foot radiographs 08/09/2023 reports only. Right foot radiographs 03/12/2015. TECHNIQUE: 3 views of each foot. FINDINGS: RIGHT FOOT: Mild degenerative changes 1st metatarsophalangeal joint. Near-complete destruction of the distal phalanx of the right 2nd toe with soft tissue swelling is new since 2015 exam. Irregularity along the distal lateral aspect of the right 5th metatarsal may also be related to a destructive process of indeterminate age and etiology is new since 2015 exam. Moderate degenerative changes at the tarsometatarsal joints. Tiny plantar and dorsal calcaneal spurs. LEFT FOOT: Soft tissue swelling at the 2nd toe. Second toe PIP joint again demonstrates moderate degenerative changes. Redemonstration of a cystic lucency at the base of the 2nd toe proximal phalanx. There has been progression of destructive process in the left 2nd toe along the mid to distal aspect of the left 2nd middle phalanx with residual bony focus distal to that, concerning for osteomyelitis in the appropriate clinical setting. Small plantar calcaneal spur. XR/XR foot RT min 3V IMPRESSION: 1. Extensive destructive changes of the distal phalanx of the right 2nd toe with soft tissue swelling, not appreciated on 2015 exam. 2. Irregularity along the distal lateral aspect of the right 5th metatarsal may also be related to a destructive process of indeterminate age and etiology was not appreciated on 2015 exam. 3. Progression of destructive process in the left 2nd toe along the mid to distal aspect of the left 2nd middle phalanx with residual bony focus distal to that, concerning for osteomyelitis in the appropriate clinical setting. MRI could be considered for further evaluation. This study was presented today to March 25, 2024 for interpretation. Stat results provided at this time as requested by referring provider. Electronically signed by: Nicki Cortés MD 03/25/2024 01:37 PM EST
--- NOTE | ~2024-03-25 | XR_ITS ---
EXAMINATION: XR FOOT, BILATERAL CLINICAL INDICATION: Ulcer of both feet, unspecified ulcer stage, history of osteomyelitis, foot ulcers bilaterally. Patient states right foot is worse than right? COMPARISON: CT left foot 08/10/2023. Left foot radiographs 08/09/2023 reports only. Right foot radiographs 03/12/2015. TECHNIQUE: 3 views of each foot. FINDINGS: RIGHT FOOT: Mild degenerative changes 1st metatarsophalangeal joint. Near-complete destruction of the distal phalanx of the right 2nd toe with soft tissue swelling is new since 2015 exam. Irregularity along the distal lateral aspect of the right 5th metatarsal may also be related to a destructive process of indeterminate age and etiology is new since 2015 exam. Moderate degenerative changes at the tarsometatarsal joints. Tiny plantar and dorsal calcaneal spurs. LEFT FOOT: Soft tissue swelling at the 2nd toe. Second toe PIP joint again demonstrates moderate degenerative changes. Redemonstration of a cystic lucency at the base of the 2nd toe proximal phalanx. There has been progression of destructive process in the left 2nd toe along the mid to distal aspect of the left 2nd middle phalanx with residual bony focus distal to that, concerning for osteomyelitis in the appropriate clinical setting. Small plantar calcaneal spur. XR/XR foot LT min 3V IMPRESSION: 1. Extensive destructive changes of the distal phalanx of the right 2nd toe with soft tissue swelling, not appreciated on 2015 exam. 2. Irregularity along the distal lateral aspect of the right 5th metatarsal may also be related to a destructive process of indeterminate age and etiology was not appreciated on 2015 exam. 3. Progression of destructive process in the left 2nd toe along the mid to distal aspect of the left 2nd middle phalanx with residual bony focus distal to that, concerning for osteomyelitis in the appropriate clinical setting. MRI could be considered for further evaluation. This study was presented today to March 25, 2024 for interpretation. Stat results provided at this time as requested by referring provider. Electronically signed by: Nicki Cortés MD 03/25/2024 01:37 PM EST
--- OUTSIDE RECORDS SUMMARY | 2024-03-25 12:10 | XMS_ITS | Continuity of Care Document ---
Author Organization [employer] [place] [employer] Address [address] [place] [address] Care Team Providers Care Signs And Displays Salesperson Name Role Phone HIM [facility] OTHER [facility] OTHER Assessment Encounter Date Assessment Date Assessment LastModified by Organization Details LastModified Time 01/23/2024 01/23/2024 service called for rash found [...] no improvement -otherwise return to primary team barron Not available 01/23/2024 17:51:00 Plan of Treatment Reminders Order Date Submit Date Provider Last Modified By Organization Details Last Modified Time Details Appointments None recorded. Lab None recorded. Referral None recorded. Procedures None recorded. Surgeries None recorded. Imaging None recorded. Medication Orders doxycycline hyclate 100 mg capsule 2023 [facility], [address] [place] [address], [id number], 10:35:27 doxycycline hyclate 100 mg tablet [facility]23 [email or web address] [address] [place] [address], [id number], 17:45:25 Patient TargetsNo targets recorded. Patient InstructionsNo instructions recorded. Reason for Referral None Reported. Medical Equipment None Reported. Allergies Allergen ID Allergen Name Allergen Category Reaction Reaction Severity Criticality Documentation Date Start Date Code Code System Note Provider Name and Address Organization Details Recorded Time 5761 Cialis medicatio n Not available Not available Not available 11/02/2023 34078 3 RxNorm Mabel Goddard MD [address] [facility],[address], [place], [phone], [employer] 4 13:39:30 Medications Name Sig Start Date Stop [...] Available No t Available Vitals Date Recorded Body weight Body height Body temperature Oxygen saturation Oxygen saturation in Arterial blood by Pulse oximetry Respiratory rate Heart rate Systolic blood pressure Diastolic blood pressure Provider Name and Address Organization Details Last Updated DateTime 4 83244.6 g 172.72 cm 98.4 [degF] 98 % 98 % 14 /min 80 /min 138 mm[Hg] 72 mm[Hg] Not Available [facility] [employer] 4 17:34:38 Social History None recorded. Functional Status None recorded. Mental Status None recorded. Family History Nothing Reported. Medical History No medical history recorded. Past Encounters Encounter ID Performer Location Encounter Start Date Encounter Closed Date Diagnosis/Indication Diagnosis SNOMED-CT Code Diagnosis ICD10 Code [id number] [facility] [address] [place] [phone] 01/23/2024 17:34:23 01/24/2024 00:02:04 Cellulitis of left lower limb [id number] [id number] L03.116 Health Concerns Section Related Observation LastModified by Organization Detai ls LastModified Time None Recorded Concern Status LastModified by Organization Details LastModified Time None Recorded Payers Encounter Date Sequence Insurance Name Policy Number Policy Dubose Covered Member ID Dubose Member ID Guarantor Name 01/23/2024 1 [facility] - DOS ON OR AFTER 2022 - DUAL ELIGIBLE - JAIL OPTIONS AND ONE CARE (MEDICARE REPLACEMENT/ADV ANTAGE - HMO) Mckinley Berry [id number] Mckinley Berry Notes Date Note Type Note Provider Name and Address Organization Details Recorded Time 01/23/2024 text/html HPI: anxiety, chronic pain, cardiomyopathy, [...] CRC RN DID NOT NEED FURTHER INFO Building Maintenance Superintendent Organization Information for Dallin Lawrence [employer] Legal Name: [facility] [employer] Address: [address] [place] [address], Motor Pool Driver: Kehinde Canela MD [facility] No.: [id number] Building Maintenance Superintendent POC Test Results from Dallin Lawrence Blood Glucose Measurement (17:15:08) Blood Glucose: 328 mg/dL .................... .................... .................... .................... .................... .................... .................... . Building Maintenance Superintendent Note From Dallin Lawrence: Patient conscious and [...] extra heat, discolored discharge, or current bleeding noted.[facility] orders doxycycline 200 mg PO now and will call in more to patient? s local pharmacy. Supportive care, including cleaning and use of triple antibiotic ointment discussed. Red flags, and patient education discussed.Note: [id number]. supervisor stage carpentry in test section of this report incorrect. Patient? s BGL equals 228 MG/DL [facility] Medication Orders: doxycycline hyclate 100 mg tablet: Administered .................... .................... .................... .................... .................... .................... .................... . Disposition: Yvonne Sun MD [address] [facility],[address], [place], [address], [employer] 01/23/2024 20:59:30
--- OUTSIDE RECORDS SUMMARY | 2024-03-25 12:10 | XMS_ITS | Data Portability ---
Author Organization [employer], Ia in - [employer] Address [address] [place] [phone] Care Team Providers Care Manager Game Name Role Phone HIM [facility] OTHER [facility] OTHER [phone] Assessment Encounter Date Assessment Date Assessment LastModified [...] Orders doxycycline hyclate 100 mg capsule 2023 [facility], [address] [place] [address], [id number], 10:35:27 doxycycline hyclate 100 mg tablet 2023 [facility], [address] [place] [address], [id number], 17:45:25 Patient TargetsNo targets recorded. Patient InstructionsNo instructions recorded. Reason for Referral None Reported. Medical Equipment None Reported. Allergies Allergen ID Allergen Name Allergen Category Reaction Reaction Severity Criticality Documentation Date Start Date Code Code System Note Provider Name and Address Organization Details Recorded Time 5761 Cialis medicatio n Not available Not available Not available 11/02/2023 36463 3 RxNorm Mabel Goddard MD [address] [place] [address],[address], [place], [phone], jslyhl 13:39:30 Medications Name Sig Start Date Stop [...] % 99 % 16 /min 97.1 [degF] 53777.3 2 g 182.88 cm 84 /min 122 mm[Hg] 83 mm[Hg] Not Available [facility] - production 4 13:35:39 Date Recorded Body weight Body height Body temperature Oxygen saturation Oxygen saturation in Arterial blood by Pulse oximetry Respiratory rate Heart rate Systolic blood pressure Diastolic blood pressure Provider Name and Address Organization Details Last Updated DateTime 4 20228.6 g 172.72 cm 98.4 [degF] 98 % [...] Diagnosis/Indication Diagnosis SNOMED-CT Code Diagnosis ICD10 Code [id number] Mabel Goddard MD Main - [facility] [address] [place] [phone] 11/02/2023 13:35:26 11/05/2023 21:50:53 Diabetic foot ulcer 875144282 E13.621 70641 Juna Antonio Sun MD Main - [address] [phone] 01/23/2024 17:34:23 01/24/2024 00:02:04 Cellulitis of left lower limb [id number] 3527162 L03.116 Health Concerns Section Related Observation LastModified by Organization Detai ls LastModified Time None Recorded Concern Status LastModified by Organization Details LastModified Time None Recorded Advance Directives Directive None Recorded Payers Encounter Date Sequence Insurance Name Policy Number Policy Dubose Covered Member ID Dubose Member ID Guarantor Name 11/02/2023 1 [facility] - DOS ON OR AFTER 2022 - DUAL ELIGIBLE - RESIDENTIAL OPTIONS AND ONE CARE (MEDICARE REPLACEMENT/ADV ANTAGE - HMO) Mckinley Berry [id number] Mckinley Berry 01/23/2024 1 [facility] - DOS ON OR AFTER 2022 - DUAL ELIGIBLE - RESIDENTIAL OPTIONS AND ONE CARE (MEDICARE REPLACEMENT/ADV ANTAGE - HMO) Mckinley Berry [id number] Mckinley Berry Notes Date Note Type Note Provider Name and Address Organization Details Recorded Time 11/02/2023 text/html HPI: blood sugar in 300s, open wound near toes on right foot Member is followed by ID due to h/o sepsis .................... .................... .................... .................... .................... .................... .................... . [facility] Nurse Triage Notes (Amy Johnston): Chief Complaints: Wound Care PMH: Diabetes, Hypertension Other Allergies: tadalafil Comments: Bookbinder Apprentice verified the member's name//address and phone number. [...] .................... .................... .................... .................... .................... .................... . Manager Of Employee Relations Note From Cheng Sapp[facility]. Pt complaining of [...] Affected toe's examined with images sent to [facility]. Consulted with [facility] Dr. Goddard who said she would put in request to PCP to have patient seen sooner to address issues and get possible xray of the foot. Reviewed red flags for ED. Patient education provided. .................... .................... .................... .................... .................... .................... .................... . Disposition: Yvonne Goddard MD [address] [place] [address],[address], [place], [phone], [employer]lyhl 11/02/2023 15:00:39 01/23/2024 text/html HPI: anxiety, chronic [...] CRC RN DID NOT NEED FURTHER INFO Manager Of Employee Relations Organization Information for Dallin Lawrence Business Legal Name: [employer] Address: [address] [place] [address], [place] [address], Sonoscope Operator: Kehinde JACOBSON No.: [id number] Manager Of Employee Relations POC Test Results from Dallin Lawrence Blood Glucose Measurement (17:15:08) Blood Glucose: 328 mg/dL .................... .................... .................... .................... .................... .................... .................... . Manager Of Employee Relations Note From Dallin Lawrence: Patient conscious and [...] extra heat, discolored discharge, or current bleeding noted.[facility] orders doxycycline 200 mg PO now and will call in more to patient? s local pharmacy. Supportive care, including cleaning and use of triple antibiotic ointment discussed. Red flags, and patient education discussed.Note: [id number]. inspector heating and refrigeration in test section of this report incorrect. Patient? s BGL equals 228 MG/DL [facility] Medication Orders: doxycycline hyclate 100 mg tablet: Administered .................... .................... .................... .................... .................... .................... .................... . Disposition: Fulfilled Juan Antonio Sun MD [address] [facility],[address] [facility], [place], [address], JAH SOLER 01/23/2024 20:59:30
== END 2024-03-25 12:08 | disposition home or self-care (01) ==
LOC: HO.HHCX 12:07
PROVIDERS: Visit Provider Family Medicine
DX: L97.519 Non-pressure chronic ulcer of other part of right foot with unspecified severity (principal); L97.529 Non-pressure chronic ulcer of other part of left foot with unspecified severity
CPT/HCPCS: 73630

== ENCOUNTER 2024-04-05 13:56 | Outpatient (REF) | payer OTHER, SELFPAY ==
--- OUTSIDE RECORDS SUMMARY | 2024-04-05 15:28 | XMS_ITS | Continuity of Care Document ---
Author Organization [employer], [employer] - [employer] Address [address] [place] [phone] Care Team Providers Care Chemical Production Engineer Name Role Phone HIM [facility] OTHER [facility] OTHER Assessment Encounter Date Assessment Date [...] Orders doxycycline hyclate [address] [facility], [address] [place] [address], [id number], 10:35:27 [facility]xycycline hyclate 100 mg tablet [address] [facility] [address] [place] [address], [id number], 17:45:25 Patient TargetsNo targets recorded. Patient InstructionsNo instructions recorded. Reason for Referral None Reported. Medical Equipment None Reported. Allergies Allergen ID Allergen Name Allergen Category Reaction Reaction Severity Criticality Documentation Date Start Date Code Code System Note Provider Name and Address Organization Details Recorded Time 5761 Cialis medicatio n Not available Not available Not available 11/02/2023 43939 3 RxNorm Mabel Goddard MD [address] [facility],[address], [place], [phone], [employer] 4 13:39:30 Medications Name Sig Start Date [...] Address Organization Details Last Updated DateTime 4 20818.6 g 172.72 cm 98.4 [degF] 98 % [...] Diagnosis/Indication Diagnosis SNOMED-CT Code Diagnosis ICD10 Code 25107 [facility] [address] [place] [phone] 01/23/2024 17:34:23 01/24/2024 00:02:04 Cellulitis of left lower limb [id number] 4925422 L03.116 Health Concerns Section Related Observation LastModified by Organization Detai ls LastModified Time None Recorded Concern Status LastModified by Organization Details LastModified Time None Recorded Payers Encounter Date Sequence Insurance Name Policy Number Policy Dubose Covered Member ID Dubose Member ID Guarantor Name 01/23/2024 1 [facility] - DOS ON OR AFTER 2022 - DUAL ELIGIBLE - JAIL OPTIONS AND ONE CARE (MEDICARE REPLACEMENT/ADV ANTAGE - HMO) Mckinley Berry [id number] Mckinley Berry Notes Date Note Type Note [...] CRC RN DID NOT NEED FURTHER INFO Product Safety Compliance Leader Organization Information for Dallin Lawrence [employer] Legal Name: [facility] [employer] Address: [address] [place] [address], Teletype Installer: Kehinde Canela MD [facility] No.: [id number] Product Safety Compliance Leader POC Test Results from Dallin Lawrence Blood Glucose Measurement (17:15:08) Blood Glucose: 328 mg/dL .................... .................... .................... .................... .................... .................... .................... . Product Safety Compliance Leader Note From Dallin Lawrence: Patient conscious and [...] heat, discolored discharge, or current bleeding noted.[facility] orders doxycycline 200 mg PO now and will call in more to patient? s local pharmacy. Supportive care, including cleaning and use of triple antibiotic ointment discussed. Red flags, and patient education discussed.Note: [id number]. laborer carpentry dock in test section of this report incorrect. Patient? s BGL equals 228 MG/DL [facility] Medication Orders: doxycycline hyclate 100 mg tablet: Administered .................... .................... .................... .................... .................... .................... .................... . Disposition: Yvonne Sun MD [address] [facility],[address], [place], [address], [employer] 01/23/2024 20:59:30
[2024-04-05 16:11] LABS: MANUAL DIFF FLAG NO
[2024-04-05 16:22] LABS: Basophils Absolute Auto 0.1 X10*3/uL (0.0-0.2); Basophils Percent Auto 0.7 % (0-2); Eosinophils Absolute Auto 0.2 X10*3/uL (0.0-0.4); Eosinophils Percent Auto 2.5 % (0-4); Hematocrit 37.6 % (42.0-52.0); Hemoglobin 12.2 g/dl (14.0-18.0); Imm Gran Abs Auto 0.03 X10*3/uL (0.00-0.03); Imm Gran Pct Auto 0.4 % (0.0-0.4); Lymphocytes Absolute Auto 1.6 X10*3/uL (1.2-4.9); Lymphocytes Percent Auto 23.8 % (20-40); Mean Corpuscular HGB Conc 32.4 g/dl (31.0-36.0); Mean Corpuscular Hemoglobin 27.1 pg (27.0-33.0); Mean Corpuscular Volume 83.4 fL (80.0-98.0); Mean Platelet Volume 12.4 fL (9.4-12.4); Monocytes Absolute Auto 0.6 X10*3/uL (0.1-1.2); Monocytes Percent Auto 8.6 % (2-11); Neutrophils Absolute Auto 4.4 x10*3/uL (2.0-8.3); Platelet Count 235 X10*3/uL (160-400); Red Blood Count 4.51 X10*6/uL (4.60-5.80); Red Cell Distribution Width 14.2 % (11.0-16.0); White Blood Count 6.9 X10*3/uL (4.8-10.8)
[2024-04-05 16:36] LABS: Creatinine Urine 29.83 mg/dL; Microalbumin Urine < 5.0 mg/L
[2024-04-05 16:52] LABS: Anion Gap 10 (12-20); Blood Urea Nitrogen 21 mg/dL (9-16); Calcium 9.5 mg/dL (8.4-10.2); Carbon Dioxide 29 mmol/L (22-29); Chloride 98 mmol/L (96-108); Cholesterol 175 mg/dL (<200); Estimated Glomerular Filt Rate > 60; Glucose Random 257 mg/dL (60-115); HDL Cholesterol 41 mg/dL (>40); LDL Cholesterol Calculated 92 mg/dL (<100); Sodium 132 mmol/L (135-145); Triglycerides 214 mg/dL (<150)
== END 2024-04-05 13:57 | disposition home or self-care (01) ==
LOC: HO.HHCL 13:56
PROVIDERS: Visit Provider Nurse Practitioner
DX: E11.65 Type 2 diabetes mellitus with hyperglycemia (principal); L97.519 Non-pressure chronic ulcer of other part of right foot with unspecified severity; L97.529 Non-pressure chronic ulcer of other part of left foot with unspecified severity; Z79.4 Long term (current) use of insulin
CPT/HCPCS: 36415; 80048; 80061; 82570; 85025

== ENCOUNTER 2024-04-17 12:44 | Outpatient (REF) | payer OTHER, SELFPAY ==
--- NOTE | ~2024-04-17 | MR_ITS ---
EXAMINATION: MR FOOT WITHOUT THEN WITH IV CONTRAST RIGHT HISTORY: Right foot ulcer with plain films suspicious for osteomyelitis.. TECHNIQUE: Sagittal T1 and STIR, axial T1 and STIR, and coronal STIR images of the right forefoot were obtained. Subsequently, axial and sagittal fat-suppressed T1-weighted images were obtained after the intravenous administration of 10 mL Gadavist. COMPARISON: Correlation is made to plain films of the right foot dated 03/25/2024. FINDINGS: There is destruction of the distal phalanx of the 2nd toe which demonstrates marrow edema. There is also bone marrow edema involving the middle phalanx, with associated contrast enhancement. No gross destruction of the middle phalanx is seen. There is severe degenerative change involving the joint space between the middle cuneiform and the 2nd metatarsal, with cartilage loss, subchondral cyst formation, and subchondral marrow changes. There are also degenerative changes involving the 1st and 2nd MTP joints, with cartilage loss and subchondral cyst formation. Bone marrow signal intensity is otherwise normal. No tendon or ligamentous abnormality is seen. There is no loculated fluid collection. MR/MR foot RT wo/w con IMPRESSION: 1. Findings consistent with osteomyelitis involving the middle and distal phalanges of the 2nd toe. 2. Degenerative changes as described. Electronically signed by: Milan Vieira MD 04/17/2024 03:03 PM [facility]
--- NOTE | ~2024-04-17 | MR_ITS ---
EXAMINATION: MR FOOT WITHOUT THEN WITH IV CONTRAST LEFT HISTORY: Ulceration. Plain films suggestive of osteomyelitis.. TECHNIQUE: Sagittal T1 and STIR, axial T1 and STIR, and coronal STIR images of the left foot were obtained. Subsequently, axial and sagittal fat-suppressed T1-weighted images were obtained after the intravenous administration of 10 mL Gadavist. COMPARISON: Correlation is made to plain films of the left foot dated 03/24/2024. FINDINGS: The examination is limited by patient motion. There is destruction of the middle and distal phalanges of the 2nd toe. There is also bone marrow edema and enhancement involving the distal half of the proximal phalanx. These findings are consistent with osteomyelitis. There is diffuse soft tissue swelling of the 2nd toe. No loculated fluid collection is seen. There is severe osteoarthritis of the 2nd tarsometatarsal joint with cartilage loss, subchondral marrow edema, and subchondral cyst formation. Bone marrow signal intensity is otherwise normal. No tendon or ligamentous abnormality is seen. MR/MR foot LT wo/w con IMPRESSION: 1. Findings consistent with osteomyelitis involving the middle and distal phalanges of the 2nd toe, as well as the distal half of the proximal phalanx. 2. 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 Electronically signed by: Milan Vieira MD 04/17/2024 03:13 PM [facility]
[2024-04-17] MEDS: gadobutroL 10 ML VIAL IVPUSH (14:21)
--- OUTSIDE RECORDS SUMMARY | 2024-04-17 15:15 | XMS_ITS | Data Portability ---
Author Organization [employer] Address [address] [place] [phone] Care Team Providers Care Marketing Services Manager Name Role Phone HIM [facility] OTHER [facility] OTHER Assessment Encounter Date Assessment Date Assessment [...] Orders doxycycline hyclate 100 mg capsule 2023 [facility], [address] [place] [address], [id number], 10:35:27 doxycycline hyclate 100 mg tablet 2023 [facility], [address] [place] [address], [id number], 17:45:25 Patient TargetsNo targets recorded. Patient InstructionsNo instructions recorded. Reason for Referral None Reported. Medical Equipment None Reported. Allergies Allergen ID Allergen Name Allergen Category Reaction Reaction Severity Criticality Documentation Date Start Date Code Code System Note Provider Name and Address Organization Details Recorded Time 5761 Cialis medicatio n Not available Not available Not available 11/02/2023 13176 3 RxNorm Mabel Goddard MD [address] [place] [address],[address], [place], [phone], [employer] 13:39:30 Medications Name Sig Start Date Stop [...] % 99 % 16 /min 97.1 [degF] 12584.3 2 g 182.88 cm 84 /min 122 mm[Hg] 83 mm[Hg] Not Available [facility] - production 4 13:35:39 Date Recorded Body weight Body height Body temperature Oxygen saturation Oxygen saturation in Arterial blood by Pulse oximetry Respiratory rate Heart rate Systolic blood pressure Diastolic blood pressure Provider Name and Address Organization Details Last Updated DateTime 4 02446.6 g 172.72 cm 98.4 [degF] 98 % [...] Diagnosis/Indication Diagnosis SNOMED-CT Code Diagnosis ICD10 Code Diagnosis Note 26680 Mabel Goddard MD Main - [address] [phone] 11/02/2023 13:35:26 11/05/2023 21:50:53 Diabetic foot ulcer 170839094 E13.621 20146 Juan Antonio Sun MD Main - [address] [phone] 01/23/2024 17:34:23 01/24/2024 00:02:04 Cellulitis of left lower limb [id number] 1530283 L03.116 Health Concerns Section Related Observation LastModified by Organization Detai ls LastModified Time None Recorded Concern Status LastModified by Organization Details LastModified Time None Recorded Advance Directives Directive None Recorded Payers Encounter Date Sequence Insurance Name Policy Number Policy Dbuose Covered Member ID Dubose Member ID Guarantor Name 11/02/2023 1 [facility] - DOS ON OR AFTER 2022 - DUAL ELIGIBLE - NURSING HOME OPTIONS AND ONE CARE (MEDICARE REPLACEMENT/ADV ANTAGE - HMO) Mckinley Berry [id number] Mckinley Berry 01/23/2024 1 [facility] - DOS ON OR AFTER 2022 - DUAL ELIGIBLE - NURSING HOME OPTIONS AND ONE CARE (MEDICARE REPLACEMENT/ADV ANTAGE - HMO) Mckinley Berry [id number] Mckinley Berry Notes Date Note Type Note Provider Name and Address Organization Details Recorded Time 11/02/2023 text/html HPI: blood sugar in 300s, open wound near toes on right foot Member is followed by ID due to h/o sepsis .................... .................... .................... .................... .................... .................... .................... . [facility] Nurse Triage Notes (Amy Johnston): Chief Complaints: Wound Care PMH: Diabetes, Hypertension Other Allergies: tadalafil Comments: Res Habilitation Assistant verified the member's name//address and phone [...] .................... .................... .................... .................... .................... .................... . Spares Scheduler Note From Cheng Sapp: [employer] visit for male patient. Pt complaining of [...] Affected toe's examined with images sent to [facility]. Consulted with [facility] Dr. Goddard who said she would put in request to PCP to have patient seen sooner to address issues and get possible xray of the foot. Reviewed red flags for ED. Patient education provided. .................... .................... .................... .................... .................... .................... .................... . Disposition: Yvonne Goddard MD [address] [place] [address],[address], [place], [phone], [employer] 11/02/2023 15:00:39 01/23/2024 text/html HPI: anxiety, chronic [...] CRC RN DID NOT NEED FURTHER INFO Spares Scheduler Organization Information for Dallin Lawrence Business Legal Name: [facility] [employer] Address: [address] [place] [address], [place] [address], Natural Gas Technician: Kehinde JACOBSON No.: [id number] Spares Scheduler POC Test Results from Dallin Lawrence Blood Glucose Measurement (17:15:08) Blood Glucose: 328 mg/dL .................... .................... .................... .................... .................... .................... .................... . Spares Scheduler Note From Dallin Lawrence: Patient conscious and [...] extra heat, discolored discharge, or current bleeding noted.[facility] orders doxycycline 200 mg PO now and will call in more to patient? s local pharmacy. Supportive care, including cleaning and use of triple antibiotic ointment discussed. Red flags, and patient education discussed.Note: [id number]. charge entry clerk in test section of this report incorrect. Patient? s BGL equals 228 MG/DL [facility] Medication Orders: doxycycline hyclate 100 mg tablet: Administered .................... .................... .................... .................... .................... .................... .................... . Disposition: Fulfilled Juan Antonio Sun MD [address] [facility],[address] [facility], [place], [address], JAH SOLER 01/23/2024 20:59:30
--- OUTSIDE RECORDS SUMMARY | 2024-04-17 15:16 | XMS_ITS | Continuity of Care Document ---
Author Organization [employer] Address [address] [place] [phone] Care Team Providers Care Treasury Director Name Role Phone HIM [facility] OTHER [facility] OTHER [phone] Assessment Encounter Date Assessment Date Assessment LastModified [...] Orders doxycycline hyclate 100 mg capsule 2023 [facility], [address] [place] [address], [id number], 10:35:27 doxy[facility]ine hyclate 100 mg tablet [facility] [address] [place] [address], [id number], 17:45:25 Patient TargetsNo targets recorded. Patient InstructionsNo instructions recorded. Reason for Referral None Reported. Medical Equipment None Reported. Allergies Allergen ID Allergen Name Allergen Category Reaction Reaction Severity Criticality Documentation Date Start Date Code Code System Note Provider Name and Address Organization Details Recorded Time 5761 Cialis medicatio n Not available Not available Not available 11/02/2023 16454 3 RxNorm Mabel Goddard MD [address] [facility],[address], [place], [phone], [employer] 4 13:39:30 Medications Name Sig Start Date [...] Address Organization Details Last Updated DateTime 4 61428.6 g 172.72 cm 98.4 [degF] 98 % [...] SNOMED-CT Code Diagnosis ICD10 Code Diagnosis Note 48552 Juan Antonio Sun MD Main - [address] [phone] 01/23/2024 17:34:23 01/24/2024 00:02:04 Cellulitis of left lower limb [id number] 0868314 L03.116 Health Concerns Section Related Observation LastModified by Organization Detai ls LastModified Time None Recorded Concern Status LastModified by Organization Details LastModified Time None Recorded Payers Encounter Date Sequence Insurance Name Policy Number Policy Dubose Covered Member ID Dubose Member ID Guarantor Name 01/23/2024 1 [facility] - DOS ON OR AFTER 2022 - DUAL ELIGIBLE - SENIOR LIVING OPTIONS AND ONE CARE (MEDICARE REPLACEMENT/ADV ANTAGE - HMO) Mckinley Berry [id number] Mckinley Berry Notes Date Note Type Note [...] RN DID NOT NEED FURTHER INFO Manager Forensic Organization Information for Dallin Lawrence [employer] Legal Name: [facility] [employer] Address: [address] [place] [address], Medical Imaging Technologist: Kehinde Canela MD [facility] No.: [id number] Manager Forensic POC Test Results from Dallin Lawrence Blood Glucose Measurement (17:15:08) Blood Glucose: 328 mg/dL .................... .................... .................... .................... .................... .................... .................... . Manager Forensic Note From Dallin Lawrence: Patient conscious and [...] extra heat, discolored discharge, or current bleeding noted.[facility] orders doxycycline 200 mg PO now and will call in more to patient? s local pharmacy. Supportive care, including cleaning and use of triple antibiotic ointment discussed. Red flags, and patient education discussed.Note: [id number]. carpentry supervisor in test section of this report incorrect. Patient? s BGL equals 228 MG/DL [facility] Medication Orders: doxycycline hyclate 100 mg tablet: Administered .................... .................... .................... .................... .................... .................... .................... . Disposition: Yvonne Sun MD [address] [facility],[address], [place], [address], [employer] 01/23/2024 20:59:30
== END 2024-04-17 12:45 | disposition home or self-care (01) ==
LOC: HO.MRI 12:44
PROVIDERS: PCP Nurse Practitioner; Visit Provider Nurse Practitioner
DX: L97.519 Non-pressure chronic ulcer of other part of right foot with unspecified severity (principal); L97.529 Non-pressure chronic ulcer of other part of left foot with unspecified severity
CPT/HCPCS: 73720; A9585

== ENCOUNTER → 2024-04-17 13:00 | Outpatient (BNV) | payer OTHER, SELFPAY | PROVIDERS: PCP Nurse Practitioner; Visit Provider Radiology Diagnostic Radiology | DX: L97.529 Non-pressure chronic ulcer of other part of left foot with unspecified severity (principal) | CPT/HCPCS: 73720 ==

== ENCOUNTER 2024-05-23 15:44 | Outpatient (REF) | payer OTHER, SELFPAY ==
--- NOTE | ~2024-05-23 | XR_ITS ---
EXAMINATION: XR KNEE, LEFT CLINICAL INFORMATION: pain after fall COMPARISON: None available. TECHNIQUE: Four views of the left knee. FINDINGS: No fracture, dislocation, or suspicious bone lesion. Normal bone mineralization. Normal alignment. Joint spaces are preserved. No significant arthropathy. No significant joint effusion. Soft tissues appear normal. XR/XR knee LT 4V IMPRESSION: Normal left knee. Electronically signed by: Chandler York MD 05/23/2024 04:32 PM CHAR
--- NOTE | ~2024-05-23 | XR_ITS ---
EXAMINATION: XR KNEE, RIGHT CLINICAL INFORMATION: pain after fall COMPARISON: None available. TECHNIQUE: Four views of the right knee. FINDINGS: No fracture, dislocation, or suspicious bone lesion. Normal bone mineralization. There is a fibrous cortical defect present in the lateral distal femoral metaphysis, benign. Normal alignment. Joint spaces are preserved. No significant arthropathy. No significant joint effusion. Soft tissues appear normal. XR/XR knee RT 4V IMPRESSION: 1. No acute findings right knee. Electronically signed by: Chandler York MD 05/23/2024 04:33 PM CHAR
--- OUTSIDE RECORDS SUMMARY | 2024-05-23 16:40 | XMS_ITS | Encounter Summary ---
Author Organization [email or web address] Address [address] [facility] 7t [place] [address] Care Team Providers Care Pmo Analyst Name Role Phone Gui Gemini NOLASCO Primary Care Provider [phone] Reason for Visit * Reason Comments Med Refill Encounter Details Date Type Department Care Team ([facility] st Contact Info) Description 04/23/2024 Refill [facility] MEDICINE [address] [place] [address] Ruthie Schwarz FNP 505 [place] [address] Social History Tobacco Use Types Packs/Day Years Used Date Smoking Tobacco: Never Passive Smoke Exposure: Past Smokeless Tobacco: Never Alcohol Use Standard Drinks/Week Comments Not Currently 0 (1 standard drink = 0.6 oz pure alcohol) has not had alcohol in 1 year Depression Answer Date Recorded Patient Health Questionnaire-9 Score 11 04/05/2024 Patient Health Questionnaire-9 Score 11 04/05/2024 Last PHQ-9: Questionnaire Data Not on file 0 04/05/2024 Housing Stability Answer Date Recorded What is your housing situation today? I am not s ure 04/05/[address] you li ve. Do you have problems with any of the following? None of the above 04/05/2024 Food Insecurity Answer Date Recorded Within the past 12 months, y ou worried that your food would run out before you got money to buy more: Sometimes True 2024 Within the past 12 months,th e food you bought just didn't last and you didn't have enough money to get more: Sometimes True 04/05/2024 Transportation Answer Date Recorded In the past 12 months, has l ack of transportation kept you from medical appts, meetings, work or from getting things needed for daily living? Yes, it has kept me from non-medical meetings, work, or getting things that I need 04/05/2024 Utilities Answer Date Recorded In the past 12 months, has t he electric, gas, oil or water company threatened to shut off services in your home? I am not sure 04/05/2024 Depression Answer Date Recorded Patient Health Questionnaire-2 Score 3 04/05/2024 Internet Access Answer Date Recorded Internet Access Q1 Yes 04/05/2024 Internet Access Q2 Not on file 04/05/2024 Sex and Gender Information Value Date Recorded Sex Assigned at Male 01/31/2022 10:22 AM EDT Legal Sex Male 10:22 AM EDT Gender Identity Male 01/31/2022 10:22 AM EDT Sexual Orientation Straight 01/31/2022 10 :22 AM EDT documented as of this encounter Plan of Treatment Upcoming Encounters Date Type Department Care Team (Late st Contact Info) Description 06/03/2024 1:30 PM EST Office Visit [facility] MEDICINE [address] [place] [address] Gemini Messer NP [address] [place] [address] 06/05/2024 2:00 PM EST Medication Management [facility] MEDICINE [address] [place] [address] PuiaAnila, PharmD 230 [place] [address] 06/19/2024 1:30 PM EDT Office Visit [facility] CHC ADULT DENTAL [address] [place] [address] Les Felder, DMD [address] [place] [address] documented as of this encounter Visit Diagnoses Not on filedocumented in this encounter Additional Health Concerns Assessment Noted Time PHQ-9 Depression Total Score: 11 025 1:12 PM EST documented as of this encounter Care Teams Pmo Analyst Relationship Specialty Start Date End Date Gemini Messer NP [address] [place] [address] PCP - General Family Medicine 02/08/24 documented as of this encounter
--- OUTSIDE RECORDS SUMMARY | 2024-05-23 16:40 | XMS_ITS | Encounter Summary ---
Author Organization [facility] [employer] Address [address] [place] [address] 7t [place] [address] Care Team Providers Care Wood Heel Flap Trimmer Name Role Phone Ruthie Schwarz ADMISSIONS NURSE Primary Care Provider Yamile Ramsay ADMISSIONS NURSE Primary Care Provider [phone] Gemini Messer NP Primary Care Provider [phone] Encounter Details Date Type Department Care Team (Late st Contact Info) Description 08/02/2022 Orders Only [facility] CHC MED & PEDS [address] [place] [address] Payton Knutson LPN Social History Tobacco Use Types Packs/Day Years Used Date Smoking Tobacco: Never Assessed Sex and Gender Information Value Date Recorded Sex Assigned at Male 01/31/2022 10:22 AM EDT Legal Sex Male 10:22 AM EDT Gender Identity Male 01/31/2022 10:22 AM EDT Sexual Orientation Straight 01/31/2022 10 :22 AM EDT documented as of this encounter Plan of Treatment Upcoming Encounters Date Type Department Care Team (Late st Contact Info) Description 06/03/2024 1:30 PM EST Office Visit [facility] MEDICINE [address] [place] [address] [phone] Gemini Messer NP 230 [place], [place] [phone] 06/05/2024 2:00 PM EST Medication Management [facility] MEDICINE [address] [place] [address] Anila Faustin, PharmD 230 [place], [place] [phone] 06/19/2024 1:30 PM EDT Office Visit [facility] ADULT DENTAL [address] [place] [address] Les Felder, DMD [address] [place] [address] documented as of this encounter Visit Diagnoses Not on filedocumented in this encounter Care Teams Wood Heel Flap Trimmer Relationship Specialty Start Date End Date Ruthie Schwarz FNP [address] [place] [phone] PCP - General Family Medicine 11/25/21 01/23/24 Yamile Ramsay FNP [address] [place] [address] PCP - General Family Medicine 01/24/24 02/01/24 Gemini Messer NP [address] [place] [address] PCP - General Family Medicine 02/08/24 documented as of this encounter
--- OUTSIDE RECORDS SUMMARY | 2024-05-23 16:40 | XMS_ITS | Encounter Summary ---
Author Organization [facility] [employer] Address [address] [place] [address] 7t [place] [address] Care Team Providers Care Hazardous Materials Handler Name Role Phone Ruthie Schwarz PATCH SETTER Primary Care Provider [phone] Yamile Ramsay PATCH SETTER Primary Care Provider [phone] Gemini Messer NP Primary Care Provider [phone] Encounter Details Date Type Department Care Team (Late st Contact Info) Description 06/22/2022 Orders Only [facility] CHC MED & PEDS 505 [place] [address] Payton Knutson LPN Social History Tobacco Use [...] Description 06/03/2024 1:30 PM EST Office Visit [facility] MEDICINE [address] [place] [address] [phone] Gemini Messer NP 230 [place], [place] [phone] 06/05/2024 2:00 PM EST Medication Management [facility] MEDICINE 230 [place] [address] Anila Faustin, PharmD 230 [place], [place] [phone] 06/19/2024 1:30 PM EDT Office Visit [facility] ADULT DENTAL [address] [place] [address] Les Felder, DMD [address] [place] [address] documented as of this encounter Visit Diagnoses Not on filedocumented in this encounter Care Teams Hazardous Materials Handler Relationship Specialty Start Date End Date Ruthie Schwarz FNP [address] [place] [address] PCP - General Family Medicine 11/25/21 01/23/24 Yamile Ramsay FNP [address] [place] [address] PCP - General Family Medicine 01/24/24 02/01/24 Gemini Messer NP [address] [place] [address] PCP - General Family Medicine 02/08/24 documented as of this encounter
--- OUTSIDE RECORDS SUMMARY | 2024-05-23 16:40 | XMS_ITS | Encounter Summary ---
Author Organization [employer] Address [address] [facility] [address] 7t [place] [address] Care Team Providers Care Smash Piecer Name Role Phone Gemini Messer GAURAV Primary Care Provider [phone] Encounter Details Date Type Department Care Team (Latest Contact Info) Description 05/23/2024 Travel Social History Tobacco Use Types Packs/Day Years [...] Description 06/03/2024 1:30 PM EST Office Visit [facility] MEDICINE [address] [place] [address] Gemini Messer NP 230 [place] [address] 06/05/2024 2:00 PM EST Medication Management [facility] MEDICINE [address] [place] [address] Puia Anila, PharmD 230 [place] [address] 06/19/2024 1:30 PM EDT Office Visit [facility] CHC ADULT DENTAL [address] [place], [place] [phone] Les Felder, DMD 505 [place], [place] [phone] documented as of this encounter Visit Diagnoses Not on filedocumented in this encounter Additional Health Concerns Assessment Noted Time PHQ-9 Depression Total Score: 11 025 1:12 PM EST documented as of this encounter Care Teams Smash Piecer Relationship Specialty Start Date End Date Gemini Messer NP [address] [place] [address] PCP - General Family Medicine 02/08/24 documented as of this encounter
--- OUTSIDE RECORDS SUMMARY | 2024-05-23 16:40 | XMS_ITS | Encounter Summary ---
Author Organization [facility] [employer] [facility] Address [address] [place] [address] [facility] [place] [address] Care Team Providers Care Hoist Operator Name Role Phone Gemini Messer NP Primary Care Provider [phone] Reason for Referral * Medications - Closed Specialty Diagnoses / Procedures Referred By Brandin solomon Referred To Contact Diagnoses Type 2 diabetes mellitus with hyperglycemia, with long-term current use of insulin ([facility]) Gemini Messer NP [address] [place] [address] Phone: tel: fax: Referral ID Status Reason Start Date Expiration Date Visits Re quested Visits Authorized [id number] Closed 1 1 * Medications - Closed Specialty Diagnoses / Procedures Referred By Brandin solomon Referred To Contact Diagnoses Type 2 diabetes mellitus with hyperglycemia, with long-term current use of insulin ([facility]) Gemini Messer NP [address] [place] [address] Phone: tel: fax: Referral ID Status Reason Start Date Expiration Date Visits Re quested Visits Authorized [id number] Closed 1 1 Reason for Visit * Reason Comments Follow-up Encounter Details Date Type Department Care Team ([facility] st Contact Info) Description 05/06/2024 1:45 PM EST Office Visit [facility] MEDICINE [address] [place] [address] Gemini Messer NP [address] [place], [place] Screening for colon cancer (Primary Dx); Type 2 diabetes mellitus with hyperglycemia, with long-term current use of insulin (CMS/HCC); Osteomyelitis of right foot, unspecified type (CMS/HCC) Social History Tobacco Use Types Packs/Day Years [...] the past 12 months, has t he [employer], gas, oil or water [employer] threatened to shut off services in your [...] AM EDT documented as of this encounter Last Filed Vital Signs Vital Sign Reading Time Taken Comments Blood Pressure 133/80 05/06/2024 1:36 PM EST Pulse 86 05/06/2024 1:36 PM EST Temperature 36.3 ??C (97.4 ??F) 05/06/2024 1:36 PM ES T Respiratory Rate 16 05/06/2024 1:36 PM EST Oxygen Saturation 98% 05/06/2024 1:36 PM EST Inhaled Oxygen Concentration - - Weight 105 kg (232 lb 6.4 oz) 05/06/2024 1:36 PM EST Height - - Body Mass Index 31.52 04/05/2024 1:06 PM EST documented in this encounter Plan of Treatment Upcoming Encounters Date Type Department Care Team (Late st Contact Info) Description 06/03/2024 1:30 PM EST Office Visit [facility] MEDICINE [address] [place] [address] Gemini Messer NP [address] [place] [address] 06/05/2024 2:00 PM EST Medication Management [facility] MEDICINE [address] [place] [address] Anila Faustin, PharmD 230 [place] [address] 06/19/2024 1:30 PM EDT Office Visit [facility] CHC ADULT DENTAL [address] [place] [address] Les Felder, DMD [address] [place] [address] documented as of this encounter Procedures Procedure Name Priority Date/Time Associated Diagnosis Comments POCT GLUCOSE Routine 05/06/2024 3:07 PM EST Type 2 diabetes mellitus with hyperglycemia, with long-term current use of insulin ([facility]) POCT URINALYSIS DIPSTICK Routine 05/06/2024 2:40 PM EST Type 2 diabetes mellitus with hyperglycemia, with long-term current use of insulin ([facility]) POCT GLYCATED HEMOGLOBIN, TOTAL Routine 05/06/2024 1:39 PM EST Type 2 diabetes mellitus with hyperglycemia, with long-term current use of insulin ([facility]) POCT GLUCOSE Routine 05/06/2024 1:37 PM EST Type 2 diabetes mellitus with hyperglycemia, with long-term current use of insulin ([facility]) documented in this encounter Results * (ABNORMAL) POCT Glucose (05/06/2024 3:07 PM EST) Glucose Blood, POC 358(A) 60 - 200 mg/dL QC Media Lot # [id number] Lot# Expiration Date Blood Capillary blood specimen / Unknown 05/06/2024 3:07 PM EST [facility] POINT OF CARE TEST ENTER/EDIT O RDERABLES Final Result * (ABNORMAL) POCT Urinalysis (05/06/2024 2:40 PM EST) Color, UA Light Yellow Clarity, UA Clear Glucose, UA Trace Comment:>=1000mg/dl Bilirubin, UA Negative Ketones, UA Negative Spec Grav, UA 1.005 Blood, UA Positive(A) Negative, None Detected pH, UA 6.0 Protein, UA Negative Urobilinogen, UA 0.2 Leukocytes, UA Negative Negative, Rare, Trace Nitrite, UA Negative Negative, None Detected Appearance, UA Clear QC Media Lot # [id number] Lot# Expiration Date Urine 05/06/2024 2:40 PM EST [facility] POINT OF CARE TEST ENTER/EDIT O RDERABLES Final Result * (ABNORMAL) POCT HGB A1C (05/06/2024 1:39 PM EST) Hemoglobin A1C 10.9(A) 4.0 - 6.0 % QC Media Lot # [id number] Lot# Expiration Date Blood 05/06/2024 1:39 PM EST us Gemini Messer NP POINT OF CARE TEST ENTER/EDIT O RDERABLES Final Result * (ABNORMAL) POCT Glucose (05/06/2024 1:37 PM EST) Glucose Blood, POC 500(A) 60 - 200 mg/dL Comment:[facility] QC Media Lot # [id number] Lot# Expiration Date Blood Capillary blood specimen / Unknown 05/06/2024 1:37 PM EST us Gemini Messer NP POINT OF CARE TEST ENTER/EDIT O RDERABLES Final Result documented in this encounter Visit Diagnoses Diagnosis Screening for colon cancer- Primary Special screening for malignant neoplasms, colon Type 2 diabetes mellitus with hyperglycemia, with long-term current use of insulin (CMS/HCC) Osteomyelitis of right foot, unspecified type (CMS/HCC) documented in this encounter Administered Medications Inactive Administered Medications - up to 3 most recent administrations Medication Order MAR Action Action Date Dose Rate Site Insulin Lispro solution 10 Units 10 Units, Injection, Once, On Mon05/06/24 at 1445, For 1 doseIndications:Type 2 diabetes mellitus with hyperglycemia, with long-term current use of insulin (CMS/HCC) Given 05/06/2024 2:50 PM EST 10 Units Left Lower Abdomen documented in this encounter Additional Health Concerns Assessment Noted Time PHQ-9 Depression Total Score: 11 025 1:12 PM EST documented as of this encounter Care Teams Hoist Operator Relationship Specialty Start Date End Date Gemini Messer NP [address] [place] [address] PCP - General Family Medicine 02/08/24 documented as of this encounter
--- OUTSIDE RECORDS SUMMARY | 2024-05-23 16:40 | XMS_ITS | Encounter Summary ---
Author Organization [facility] [employer] Address [address] [place] [address] 7t [place] [address] Care Team Providers Care Boring Machine Operator Double End Name Role Phone Ruthie Schwarz LEAD SPRINKLER Primary Care Provider [phone] Yamile Ramsay LEAD SPRINKLER Primary Care Provider [phone] Gemini Messer NP Primary Care Provider [phone] Encounter Details Date Type Department Care Team (Late st Contact Info) Description 03/16/2022 Orders Only [facility] CHC MED & PEDS [address] [place] [address] Payton Knutson LPN Social History Tobacco Use [...] Description 06/03/2024 1:30 PM EST Office Visit [facility] MEDICINE [address] [place] [address] [phone] Gemini Messer NP 230 [place], [place] [phone] 06/05/2024 2:00 PM EST Medication Management [facility] MEDICINE [address] [place] [address] Anila Faustin, PharmD [address] [place], [place] [phone] 06/19/2024 1:30 PM EDT Office Visit [facility] AD[facility] [address] [place] [address] Les Felder, DMD [address] [place] [address] documented as of this encounter Visit Diagnoses Not on filedocumented in this encounter Care Teams Boring Machine Operator Double End Relationship Specialty Start Date End Date Ruthie Schwarz FNP [address] [place] [address] PCP - General Family Medicine 11/25/21 01/23/24 Yamile Ramsay FNP [address] [place] [address] PCP - General Family Medicine 01/24/24 02/01/24 Gemini Messer NP [address] [place] [address] PCP - General Family Medicine 02/08/24 documented as of this encounter
--- OUTSIDE RECORDS SUMMARY | 2024-05-23 16:40 | XMS_ITS | Encounter Summary ---
Author Organization [facility] [employer] Address [address] [place] [address] 7t [place] [address] Care Team Providers Care Nickel Plant Operator Name Role Phone Ruthie Schwarz GYROSCOPE REPAIRER Primary Care Provider Yamile Ramsay GYROSCOPE REPAIRER Primary Care Provider [phone] Gemini Messer NP Primary Care Provider [phone] Encounter Details Date Type Department Care Team (Late st Contact Info) Description 01/21/2024 Orders Only [facility] CHC MED & PEDS 505 [place] [address] Ruthie Schwarz GYROSCOPE REPAIRER 505 [place] [address] Social History Tobacco Use Types Packs/Day Years Used Date Smoking Tobacco: Never Passive Smoke Exposure: Past Smokeless Tobacco: Never Sex and Gender Information Value Date Recorded Sex Assigned at Male 01/31/2022 10:22 AM EDT Legal Sex Male 10:22 AM EDT Gender Identity Male 01/31/2022 10:22 AM EDT Sexual Orientation Straight 01/31/2022 10 :22 AM EDT documented as of this encounter Plan of Treatment Upcoming Encounters Date Type Department Care Team (Late st Contact Info) Description 06/03/2024 1:30 PM EST Office Visit [facility] MEDICINE [address] [place] [address] [phone] Gemini Messer NP [address] [place], [place] [phone] 06/05/2024 2:00 PM EST Medication Management [address] [address] Anila Faustin, PharmD [address] [place] [address] 06/19/2024 1:30 PM EDT Office Visit [facility] ADULT DENTAL [address] [place], [place] [phone] Les Felder, DMD [address] [place] [address] documented as of this encounter Visit Diagnoses Not on filedocumented in this encounter Care Teams Nickel Plant Operator Relationship Specialty Start Date End Date Ruthie Schwarz FNP [address] [place] [address] PCP - General Family Medicine 11/25/21 01/23/24 Yamile Ramsay FNP [address] [place] [address] PCP - General Family Medicine 01/24/24 02/01/24 Gemini Messer NP [address] [place] [address] PCP - General Family Medicine 02/08/24 documented as of this encounter
--- OUTSIDE RECORDS SUMMARY | 2024-05-23 16:40 | XMS_ITS | Encounter Summary ---
Author Organization [employer] Address [address] [facility] 7t [place] [address] Care Team Providers Care Production Sanitizer Name Role Phone Ruthie SchwarzP Primary Care Provider [phone] Yamile Ramsay DIRECTOR WEB Primary Care Provider [phone] Gemini Messer COPY SUPERVISOR Primary Care Provider [phone] Reason for Visit * Reason Onset Date Comments Requested Call Back 10/20/2022 Encounter Details Date Type Department Care Team ([facility] st Contact Info) Description 10/20/2022 Telephone [facility] MEDICINE 230 [place] [address] Ruthie Schwarz FNP [address] [place], [place] [phone] Requested Call Back Social History Tobacco Use Types Packs/Day Years Used Date Smoking Tobacco: Never Passive Smoke Exposure: Past Smokeless Tobacco: Never Sex and Gender Information Value Date Recorded Sex Assigned at Male 01/31/2022 10:22 AM EDT Legal Sex Male 10:22 AM EDT Gender Identity Male 01/31/2022 10:22 AM EDT Sexual Orientation Straight 01/31/2022 10 :22 AM EDT documented as of this encounter Miscellaneous Notes * Telephone Encounter - Cayla Reynolds RN - 10/20/2022 11:58 AM EDT Pt is still admitted at [facility] for multifocal pneumonia. * Telephone Encounter - Herminia Ornelas - 10/20/2022 11:37 AM EDT Tc from [facility] at [facility] requesting a call back, in regards to PCP signing VNA orders. Please call [phone] documented in this encounter Plan of Treatment Upcoming Encounters Date Type Department Care Team (Late st Contact Info) Description 06/03/2024 1:30 PM EST [facility] 230 [place] [address] Gemini Messer NP 230 [place] [address] 06/05/2024 2:00 PM EST Medication Management [address] [address] Anila Faustin, PharmD 230 [place] [address] 06/19/2024 1:30 PM EDT Office Visit [facility] ADULT DENTAL 505 [place] [address] Les Felder, DMD 505 [place] [address] documented as of this encounter Visit Diagnoses Not on filedocumented in this encounter Care Teams Production Sanitizer Relationship Specialty Start Date End Date Ruthie Schwarz FNP [address] [place] [address] PCP - General Family Medicine 11/25/21 01/23/24 Yamile Ramsay FNP [address] [place] [address] PCP - General Family Medicine 01/24/24 02/01/24 Gemini Messer NP [address] [place] [address] PCP - General Family Medicine 02/08/24 documented as of this encounter
--- OUTSIDE RECORDS SUMMARY | 2024-05-23 16:40 | XMS_ITS | Encounter Summary ---
Author Organization [employer] Address [address] [facility] 7t [place] [address] Care Team Providers Care Heat Treater Helper Name Role Phone Gemini Messer NP Primary Care Provider [phone] Encounter Details Date Type Department Care Team (Late st Contact Info) Description 05/16/2024 Telephone [facility] MEDICINE 230 [place], [place] [phone] Gemini Messer NP 230 [place], [place] [phone] Social History Tobacco Use Types Packs/Day Years [...] encounter Miscellaneous Notes * Telephone Encounter - Blanca Muir RN - 05/16/2024 11:49 AM EST RN received paperwork from Medical Records stating the pt's ADVAIR SISKU INH 500/50 will no longer be covered by insurance. RN spoke to provider informing the above medication will not longer be covered and a new medication will need to be sent. RN gave paperwork of notification that the medicationwould not be covered to PCP. documented in this encounter Plan of Treatment Upcoming Encounters Date Type Department Care Team (Late st Contact Info) Description 06/03/2024 1:30 PM EST Office Visit [facility] MEDICINE [address] [place] [address] Gemini Messer NP 230 [place] [address] 06/05/2024 2:00 PM EST Medication Management [facility] MED[facility]INE [address] [place] [address] Anila Faustin, CachorroD 230 [place] [address] 06/19/2024 1:30 PM EDT Office Visit [facility] ADULT DENTAL [address] [place] [address] Les Felder, FRANCHESCA [address] [place] [address] documented as of this encounter Visit Diagnoses Not on filedocumented in this encounter Additional Health Concerns Assessment Noted Time PHQ-9 Depression Total Score: 11 025 1:12 PM EST documented as of this encounter Care Teams Heat Treater Helper Relationship Specialty Start Date End Date Gemini Messer NP [address] [place] [address] PCP - General Family Medicine 02/08/24 documented as of this encounter
--- OUTSIDE RECORDS SUMMARY | 2024-05-23 16:40 | XMS_ITS | Encounter Summary ---
Author Organization [employer] [facility] Address [address] [place] [address] 7t [place] [address] Care Team Providers Care Captain Assistant Name Role Phone Ruthie Schwarz INTERNET MARKETER Primary Care Provider [phone] Yamile Ramsay INTERNET MARKETER Primary Care Provider Gemini Messer NP Primary Care Provider [phone] Reason for Visit * Reason Comments Med Refill Encounter Details Date Type Department Care Team (Late st Contact Info) Description 03/15/2023 Refill [facility] MEDICINE 230 [place] [address] Suzy Escobar MD 230 [place], [place] [phone] Neuropathic pain; Type 2 diabetes mellitus with hyperglycemia, unspecified whether shelter insulin use ([facility] Primary hypertension Social History Tobacco Use Types Packs/Day Years [...] Description 06/03/2024 1:30 PM EST Office Visit [facility] MEDICINE 230 [place] [address] Gemini Messer NP 230 [place] [address] 06/05/2024 2:00 PM EST Medication Management [facility] MEDICINE [address] [place] [address] Anila Faustin, Connie 230 [place] [address] 06/19/2024 1:30 PM EDT Office Visit [facility] ADULT DENTAL [address] [place] [address] Les Felder, DMD 505 [place] [address] documented as of this encounter Visit Diagnoses Diagnosis Neuropathic pain Type 2 diabetes mellitus with hyperglycemia, unspecified whether shelter insulin use ([facility]) Primary hypertension Unspecified essential hypertension documented in this encounter Care Teams Captain Assistant Relationship Specialty Start Date End Date Ruthie Schwarz FNP 230 [place] [address] PCP - General Family Medicine 11/25/21 01/23/24 Yamile Ramsay FNP [address] [place] [address] PCP - General Family Medicine 01/24/24 02/01/24 Gemini Messer NP [address] [place] [address] PCP - General Family Medicine 02/08/24 documented as of this encounter
--- OUTSIDE RECORDS SUMMARY | 2024-05-23 16:40 | XMS_ITS | Encounter Summary ---
Author Organization [employer] Address [address] [place] [address] 7t [place] [address] Care Team Providers Care Manufacturing Engineering Director Name Role Phone Ruthie Schwarz LIFE SKILLS COORDINATOR VOLUNTEER Primary Care Provider [phone] Yamile Ramsay LIFE SKILLS COORDINATOR VOLUNTEER Primary Care Provider [phone] Gemini Messer KNOTTING MACHINE OPERATOR PORTABLE Primary Care Provider [phone] Reason for Visit * Reason Onset Date Comments Nurse Triage 03/15/2023 Encounter Details Date Type Department Care Team ([facility] st Contact Info) Description 03/15/2023 Telephone [facility] 505 [place] [address] Ruthie Schwarz LIFE SKILLS COORDINATOR VOLUNTEER 505 [place] [address] Nurse Triage Social History Tobacco Use Types Packs/Day Years [...] Telephone Encounter - Cayla Reynolds RN - 03/17/2023 11:28 AM EST TCX1 to pt regarding message below. Call was answered but no one spoke or responded to this RN. Unable to LVM. Pt to return call PRN. * Telephone Encounter - MARIE Adorno - 03/16/2023 8:39 AM EST Med list from outside sources reconciled. Pt had been receiving hydroxyzine 50mg TID PRN anxiety ordered by MAKSIM Esqueda MD. Will send in 1 month bridge rx as needed. Please call to let patient know so to save an appointment slot for [facility]. Thank you. * Telephone Encounter - Meg Rodriguez RN - 03/15/2023 5:50 PM EST Triage call Pt reports that anxiety has increased since Pt has not had hydroxyzine refilled. Pt hascalled the Doctors office and was told that a refill would be coming but, that was two weeks ago. Pt is not able to leave the house due to the anxiety. Pt keeps saying has had head injury in the pastand that makes it harder when anxiety comes. Hydroxyzine is not observed on med list on chart. Pt is advised to come to [facility] and Pt will come in the morning. Hours open 830am to 400pm tomorrow and Pt agrees with disposition. Pt is not suicidal and doesn't want to hurt anyone. Pt is not in distress at time of call. Advised that BH can be called in to [facility] for visit to speak with Pt and Pt agrees. Protocol Used: Anxiety and Panic Attack (Adult) Protocol-Based Disposition: See in Office or Video Visit within 3 Days Video visit not offered Positive Triage Questions: * Moderate anxiety (e.g., persistent or frequent anxiety symptoms; interferes with sleep, school, or work) * Requesting to talk to a counselor (e.g., mental health worker, psychiatrist) * Patient wants to be seen * All higher-acuity triage questions were negative Care Advice Discussed: * Reasons To Call Back - Anxiety or panic attacks continue - You feel like harming yourself - You become worse * Telephone Encounter - Warner Lee - 03/15/2023 3:39 PM EST Symptom: Anxiety or Panic Attack Outcome: Schedule an urgent appointment (within 4 hours) or talk to a nurse or provider soon Reason: Anxiety keeps from normal daily activities (such as school or work) documented in this encounter Plan of Treatment Upcoming Encounters Date Type Department Care Team (Late st Contact Info) Description 06/03/2024 1:30 PM EST Office Visit [facility] 230 [place] [address] Gemini Messer NP 230 [place] [address] 06/05/2024 2:00 PM EST Medication Management [facility] 230 [place] [address] Anila Faustin PharmD 230 [place] [address] 06/19/2024 1:30 PM EDT Office Visit [facility] [address] [place] [address] Les Felder, DMD 505 [place] [address] documented as of this encounter Visit Diagnoses Not on filedocumented in this encounter Care Teams Manufacturing Engineering Director Relationship Specialty Start Date End Date Ruthie Schwarz FNP [address] [place] [address] PCP - General Family Medicine 11/25/21 01/23/24 Yamile Ramsay FNP [address] [place] [address] PCP - General Family Medicine 01/24/24 02/01/24 Gemini Messer NP [address] [place] [address] PCP - General Family Medicine 02/08/24 documented as of this encounter
--- OUTSIDE RECORDS SUMMARY | 2024-05-23 16:40 | XMS_ITS | Encounter Summary ---
Author Organization [employer] Address [address] [facility] 7t [place] [address] Care Team Providers Care Tourist Home Keeper Name Role Phone GuiGemini GAURAV Primary Care Provider [phone] Encounter Details Date Type Department Care Team (Late st Contact Info) Description 03/14/2024 Orders Only [facility] MEDICINE 230 [place], [place] [phone] Suzy Escobar MD 230 [place], [place] [phone] Social History Tobacco Use Types Packs/Day Years Used Date Smoking Tobacco: Never Passive Smoke Exposure: Past Smokeless Tobacco: Never Depression Answer Date Recorded Patient Health Questionnaire-9 [...] Description 06/03/2024 1:30 PM EST Office Visit [facility] MEDICINE [address] [place] [address] Gemini Messer NP 230 [place] [address] 06/05/2024 2:00 PM EST Medication Management [facility] 230 [place] [address] Anila Faustin, PharmD 230 [place] [address] 06/19/2024 1:30 PM EDT Office Visit [facility] ADULT DENTAL [address] [place], [place] [phone] Les Felder, DMD 505 [place], [place] [phone] documented as of this encounter Procedures Procedure Name Priority Date/Time Associated Diagnosis Comments XR FOOT 3+ VIEWS RIGHT Routine 03/14/2024 1:50 PM EST XR FOOT 3+ VIEWS LEFT Routine 03/14/2024 1:50 PM EST documented in this encounter Results * XR Foot 3+ Views Left (03/14/2024 1:50 PM EST) Anatomical Region Laterality Modality Lower Extremities, Foot Left Radiogra phic Imaging 03/14/2024 1:50 PM EST Narrative 05/02/2024 10:44 AM EST ?[facility] ?[address] ?[place] [address] ?XRay Report ? Signed ? Patient: Vandal,Mckinley S ?MR#: [id number] ?? 2032 ? : 1965 ?Acct:[id number] ? Age/Sex: 58 / M ?ADM Date: 03/14/24 ? Loc: HO.HHCX ? Attending Dr: Suzy Escobar MD ? Ordering Physician: Suzy Escobar MD ?? Date of Service: 03/14/24 ?? Procedure(s): XR foot LT min 3V ?? Accession Number(s): [id number] ? cc: Suzy Escobar MD ? EXAMINATION: ?? XR FOOT LEFT ? CLINICAL INFORMATION: ?? Hx osteomyelitis, foot ulcers b/l. ? COMPARISON: ?? XR Left foot ? TECHNIQUE: ?? AP, lateral, and oblique views of the left foot. ? FINDINGS: ?? Osteolysis of the second distal phalanx is present. Osteolysis of the ?? distal portion of the second middle phalanx is noted. Elsewhere, no ?? arthropathic changes visualized. Normal overall bone mineralization. ?? Minimal plantar calcaneal enthesophyte. Normal appearance of the ?? subtalar joints. ? XR/XR foot LT min 3V ?? IMPRESSION: ?? Findings suspicious for osteomyelitis of the second distal and middle ?? phalanges. ? Electronically signed by: ??Juan Jorge MD ??05/02/2024 10:42 AM EST RP ? Dictated By: ?Juan Jorge MD ? Signed By: ?<Electronically signed by Juan Jorge MD in OV> ? 05/02/24 1042 ? DD/ 1350 ? TD/TT: 03/14/24 1400 ? Tin Pot Operator: EF ? Procedure Note Gloria, Yash - 05/02/[address] [place] [address] [address] XRay Report Signed Patient: Mckinley Berry [facility]#: [id number] 2032 : 1965Acct:[id number] Age/Sex: 58 / MADM Date: 03/14/24 Loc: HO.HHCX Attending Dr: Suzy Escobar MD Ordering Physician: Suzy Escobar MD Date of Service: 03/14/24 Procedure(s): XR foot LT min 3V Accession Number(s): [id number] cc: Suzy Escobar MD EXAMINATION: XR FOOT LEFT CLINICAL INFORMATION: Hx osteomyelitis, foot ulcers b/l. COMPARISON: XR Left foot TECHNIQUE: AP, lateral, and oblique views of the left foot. FINDINGS: Osteolysis of the second distal phalanx is present. Osteolysis of the distal portion of the second middle phalanx is noted. Elsewhere, no arthropathic changes visualized. Normal overall bone mineralization. Minimal plantar calcaneal enthesophyte. Normal appearance of the subtalar joints. XR/XR foot LT min 3V IMPRESSION: Findings suspicious for osteomyelitis of the second distal and middle phalanges. Electronically signed by: Juan Jorge MD 05/02/2024 10:42 AM EST Dictated By: Juan Jorge MD Signed By: <Electronically signed by Juan Jorge MD in OV> 05/02/24 1042 DD/ 1350 TD/TT: 03/14/24 1400 Tin Pot Operator: EF Suzy Escobar MD IMG XR PROCEDURES Final Re sult * XR Foot 3+ Views Right (03/14/2024 1:50 PM EST) Anatomical Region Laterality Modality Lower Extremities, Foot Right Radiogra phic Imaging 03/14/2024 1:50 PM EST Narrative 05/02/2024 10:44 AM EST ?[facility] ?[address] ?[place] [address] ?XRay Report ? Signed ? Patient: Vandal,Mckinley S ?MR#: [id number] ?? 2032 ? : 1965 ?Acct:[id number] ? Age/Sex: 58 / M ?ADM Date: 03/14/24 ? Loc: HO.HHCX ? Attending Dr: Suzy Escobar MD ? Ordering Physician: Suzy Escobar MD ?? Date of Service: 03/14/24 ?? Procedure(s): XR foot RT min 3V ?? Accession Number(s): [id number] ? cc: Suzy Escobar MD ? EXAMINATION: ?? XR FOOT RIGHT ? CLINICAL INFORMATION: ?? Hx osteomyelitis on left foot but now with ulcers b/l feet. ? COMPARISON: ?? XR Right foot 03/12/2015 ? TECHNIQUE: ?? AP, lateral, and oblique views of the right foot. ? FINDINGS: ?? Osteolysis of the second distal phalanx is present. Adjacent soft ?? tissue prominence is noted. Mild osteolysis of the distal portion of ?? the second middle phalanx is present. Elsewhere, no arthropathic ?? changes identified. No soft tissue emphysematous changes. Subtalar ?? joints are normal in appearance. Minimal plantar calcaneal ?? enthesophyte. ? XR/XR foot RT min 3V ?? IMPRESSION: ?? Findings suspicious for osteomyelitis of the second distal and middle ?? phalanges. ? Electronically signed by: ??Juan Jorge MD ??05/02/2024 10:41 AM EST RP ? Dictated By: ?Juan Jorge MD ? Signed By: ?<Electronically signed by Juan Jorge MD in OV> ? 05/02/24 1041 ? DD/ 1350 ? TD/TT: 03/14/24 1400 ? Tin Pot Operator: EF ? Procedure Note Gloria, Image - 05/02/[address] [address] XRay Report Signed Patient: Mckinley Berry [facility]#: [id number] 2032 : 1965Acct:[id number] Age/Sex: 58 / MADM Date: 03/14/24 Loc: HO.HHCX Attending Dr: Suzy Escobar MD Ordering Physician: Suzy Escobar MD Date of Service: 03/14/24 Procedure(s): XR foot RT min 3V Accession Number(s): [id number] cc: Suzy Escobar MD EXAMINATION: XR FOOT RIGHT CLINICAL INFORMATION: Hx osteomyelitis on left foot but now with ulcers b/l feet. COMPARISON: XR Right foot 03/12/2015 TECHNIQUE: AP, lateral, and oblique views of the right foot. FINDINGS: Osteolysis of the second distal phalanx is present. Adjacent soft tissue prominence is noted. Mild osteolysis of the distal portion of the second middle phalanx is present. Elsewhere, no arthropathic changes identified. No soft tissue emphysematous changes. Subtalar joints are normal in appearance. Minimal plantar calcaneal enthesophyte. XR/XR foot RT min 3V IMPRESSION: Findings suspicious for osteomyelitis of the second distal and middle phalanges. Electronically signed by: Juan Jorge MD 05/02/2024 10:41 AM [facility] Dictated By: Juan Jorge MD Signed By: <Electronically signed by Juan Jorge MD in OV> 05/02/24 1041 DD/ 1350 TD/TT: 03/14/24 1400 Tin Pot Operator: EF Suzy Escobar MD IMG XR PROCEDURES Final Re sult documented in this encounter Visit Diagnoses Not on filedocumented in this encounter Care Teams Tourist Home Keeper Relationship Specialty Start Date End Date Gemini Messer NP [address] [place] [address] PCP - General Family Medicine 02/08/24 documented as of this encounter
--- OUTSIDE RECORDS SUMMARY | 2024-05-23 16:40 | XMS_ITS | Encounter Summary ---
Author Organization [facility] [employer] [facility] Address [address] [place] [address] 7t [place] [address] Care Team Providers Care Vp Purchasing Name Role Phone Ruthie Schwarz COUNTER HOP Primary Care Provider [phone] Yamile Ramsay COUNTER HOP Primary Care Provider [phone] Gemini Messer MICA INSPECTOR Primary Care Provider [phone] Encounter Details Date Type Department Care Team (Late st Contact Info) Description 03/31/2022 Orders Only [facility] MEDICINE [address] [place] [address] Jill Felix, BONI Social History Tobacco Use Types Packs/Day Years [...] [facility] MED[facility]INE [address] [place] [phone] Gemini Messer NP 230 [place], [place] [phone] 06/05/2024 2:00 PM EST Medication Management [facility] MEDICINE [address] [place] [address] Anila Faustin, PharmD [address] [place], [place] [phone] 06/19/2024 1:30 PM EDT Office Visit [facility] AD[facility] D[facility]AL [address] [place], [place] [phone] Les Felder, DMD [address] [place] [address] documented as of this encounter Visit Diagnoses Not on filedocumented in this encounter Care Teams Vp Purchasing Relationship Specialty Start Date End Date Ruthie Schwarz FNP [address] [place] [address] PCP - General Family Medicine 11/25/21 01/23/24 Yamile Ramsay FNP [address] [place] [address] PCP - General Family Medicine 01/24/24 02/01/24 Gemini Messer NP [address] [place] [address] PCP - General Family Medicine 02/08/24 documented as of this encounter
--- OUTSIDE RECORDS SUMMARY | 2024-05-23 16:40 | XMS_ITS | Encounter Summary ---
Author Organization [employer] Address [address] [facility] 7t [place] [address] Care Team Providers Care Foundation Drill Operator Helper Name Role Phone Gui Gemini GAURAV Primary Care Provider [phone] Reason for Visit * Reason Comments Knee Pain Encounter Details Date Type Department Care Team (Late st Contact Info) Description 05/23/2024 2:40 PM EST Office Visit [facility] [address] [place], [place] [phone] Mariah Rios MD [address] [place] [address] Acute pain of both knees (Primary Dx); Chronic bilateral low back pain without sciatica; Neck pain; Traumatic injury of head, initial encounter Social History Tobacco Use Types Packs/Day Years [...] Sign Reading Time Taken Comments Blood Pressure 124/73 05/23/2024 3:00 PM EST Pulse 74 05/23/2024 3:00 PM EST Temperature 36.9 ??C (98.4 ??F) 05/23/2024 3:00 PM ES T Respiratory Rate 16 05/23/2024 3:00 PM EST Oxygen Saturation 96% 05/23/2024 3:00 PM EST Inhaled Oxygen Concentration - - Weight 106 kg (234 lb) 05/23/2024 3:00 PM EST Height - - Body Mass Index 31.74 04/05/2024 1:06 PM EST documented in this encounter Progress Notes * Mariah Mendoza MD - 05/23/2024 2:40 PM EST SUBJECTIVE: Mckinley Berry is a 58 y.o. year old male who presents for s/p fall . Acute Concerns: Patient reports that in the past 3 days she has been having at least 5 falls, reports about 3 days ago he even hit his head and blacked out for about a minute he thinks, reports that what he has been hurting the most is his knees, reports he has been falling because this I would start very icy and slippery, reports he has pain on his neck lower back and knees the most Social History Social History Narrative Not on file Patient Active Problem List Diagnosis Moderate persistent asthma without complication Bilateral impacted cerumen Superficial injury of gingiva with infection Cocaine use Stage 3 chronic kidney disease ([facility]) Perforation of nasal septum Obesity Nondependent opioid abuse in remission ([facility]) Mixed, or nondependent drug abuse, episodic ([facility]) Hyperlipidemia associated with type 2 diabetes mellitus ([facility]) ([facility]) Hyperkalemia Forgetfulness Essential hypertension Elevated LFTs Dyspnea Disease related peripheral neuropathy Diabetic peripheral neuropathy associated with type 2 diabetes mellitus ([facility]) Diabetic nephropathy associated with type 2 diabetes mellitus ([facility] Depressive disorder Chronic pain syndrome Cardiomyopathy ([facility]) Anxiety Allergic rhinitis Ulcer of both feet ([facility]) Neuropathy Type 2 diabetes mellitus with hyperglycemia, with long-term current use of insulin ([facility]) Encounter to establish care Acute pain of both knees Chronic bilateral low back pain without sciatica Neck pain Head trauma Family History Problem Relation Name Age of Onset Alzheimer's disease Mother Hypertension Mother Heart attack Father Diabetes Father Review of Systems Constitutional: Negative. HENT: Negative. Respiratory: Negative. Cardiovascular: Negative. Musculoskeletal: Positive for arthralgias, back pain, myalgias and neck pain. OBJECTIVE: Vitals: 05/23/24 1500 BP: 124/73 BP Location: Right arm Patient Position: Sitting BP Cuff Size: Adult Pulse: 74 Resp: 16 Temp: 98.4 ??F (36.9 ??C) TempSrc: Temporal SpO2: 96% Weight: 234 lb (106 kg) Physical Exam Constitutional: Appearance: Normal appearance. Cardiovascular: Rate and Rhythm: Normal rate and regular rhythm. Pulmonary: Effort: Pulmonary effort is normal. Breath sounds: Normal breath sounds. Abdominal: General: Abdomen is flat. Palpations: Abdomen is soft. Musculoskeletal: Cervical back: Spasms present. Decreased range of motion. Lumbar back: Spasms and tenderness present. Right knee: Tenderness present. Left knee: Tenderness present. Right lower leg: No edema. Left lower leg: No edema. Comments: Bilateral small skin lacerations more on the left knee than the right Neurological: General: No focal deficit present. Mental Status: He is alert and oriented to person, place, and time. Mental status is at baseline. Follow Up: No follow-ups on file. Current Outpatient Medications on File Prior to Visit Medication Sig Dispense Refill Acetaminophen (Mapap) 500 MG capsule TAKE 1 CAPSULE BY MOUTH EVERY 8 HOURS NEEDED FOR PAIN OR FOR FEVER 100 capsule 2 Alcohol Swabs (Alcohol Prep) 70 % pads USE DIRECTED TEST BLOOD SUGAR & INJECTING INSULIN 100each 11 amitriptyline (Elavil) 50 MG tablet TAKE 1 TABLET BY MOUTH AT BEDTIME 90 tablet 3 [] amoxicillin-clavulanate (Augmentin) 875-125 MG tablet Take 1 tablet by mouth 2 times daily for 14 days. 28 tablet 0 Aspirin Low Dose 81 MG EC tablet TAKE 1 TABLET BY MOUTH EVERYDAY AT NOON 90 tablet 3 carvedilol (Coreg) 12.5 MG tablet TAKE 1 TABLET BY MOUTH TWICE DAILY IN THE MORNING AND IN THE EVENING WITH FOOD 180 tablet 1 Continuous Glucose Bleach Supervisor (FreeStyle Lenny 3 [place]) device 1 each Once per day. 1 each 0 Continuous Glucose Sensor (FreeStyle Lenny 3 Plus Sensor) misc 1 each Once per day. Apply 1 sensor every 15 days 2 each 11 [] doxycycline (Vibra-Tabs) 100 MG tablet Take 1 tablet (100 mg) by mouth 2 times daily for 14 days. Take with a full glass of water and do not lie down for at least 30 minutes after. 28 tablet 0 Easy Touch Lancets 33G/Twist misc TEST BLOOD SUGAR FOUR TIMES DAILY 100 each 11 fenofibrate (Triglide) 160 MG tablet TAKE 1 TABLET BY MOUTH EVERYDAY AT NOON 90 tablet 1 fluticasone (Flonase) 50 MCG/ACT nasal spray INSTILL 2 SPRAYS IN EACH NOSTRIL ONCE DAILY 16 g 1 Fluticasone-Salmeterol 500-50 MCG/ACT aerosol powder Inhale 1 puff 2 times daily. Rinse and spit after each use. 60 each 3 FREESTYLE LITE test strip TEST BLOOD SUGAR 4 TIMES A DAY 200 strip 11 gabapentin (Neurontin) 800 MG tablet TAKE 1 TABLET BY MOUTH THREE TIMES DAILY IN THE MORNING, EVENING, AND BEDTIME 90 tablet 1 Agustina-Dryl 25 MG tablet Take 1 tablet by mouth at bedtime as needed 90 tablet 3 glipiZIDE (Glucotrol) 10 MG tablet TAKE 1 TABLET BY MOUTH TWICE DAILY IN THE MORNING AND IN THE EVENING BEFORE MEALS 180 tablet 1 glucose blood (FreeStyle Precision Enoch Test) test strip Test TID 100 each 11 hydrOXYzine pamoate (Vistaril) 50 MG capsule TAKE 1 CAPSULE BY MOUTH THREE TIMES DAILY NEEDED SEVERE ANXIETY 90 capsule 0 insulin pen needle (TechLite Plus Pen [place]) 32G x 4 mm misc USE DIRECTED FOUR TIMES DAILY 100each 11 ipratropium-albuterol (Duo-Neb) 0.5-2.5 mg/3 mL nebulizer solution INHALE 1 AMPULE USING A NEBULIZER FOUR TIMES DAILY NEEDED 360 mL 11 Lantus SoloStar 100 UNIT/ML pen INJECT 45 UNITS SUBCUTANEOUSLY AT BEDTIME 15 mL 1 loratadine (Claritin) 10 MG tablet TAKE 1 TABLET BY MOUTH EVERYDAY AT NOON 90 tablet 1 metFORMIN (Glucophage) 500 MG tablet TAKE 1 TABLET BY MOUTH TWICE DAILY IN THE MORNING AND IN THE EVENING 180 tablet 3 NovoLOG FLEXPEN 100 UNIT/ML pen INJECT 20 UNITS SUBCUTANEOUSLY THREE TIMES DAILY BEFORE MEALS 100-149=12 UNITS, 150-199=14 UNITS, 200-249=16 UNITS, 250-299=18 UNITS, 300 AND ABOVE=20 UNITS 30 mL 1 omeprazole (PriLOSEC) [address] capsule TAKE 1 CAPSULE BY MOUTH TWICE DAILY IN THE MORNING AND IN THE EVENING 180 capsule 2 QUEtiapine (SEROquel) 300 MG tablet sertraline (Zoloft) 100 MG tablet simvastatin (Zocor) 40 MG tablet TAKE 1 TABLET BY MOUTH EVERY EVENING 90 tablet 1 Ventolin HFA 108 (90 Base) MCG/ACT inhaler INHALE 2 PUFFS FOUR TIMES DAILY NEEDED 18 g 3 No current facility-administered medications on file prior to visit. Problem List Items Addressed This Visit Acute pain of both knees - Primary Acetaminophen as needed X-rays order patient will be contacted with results Relevant Medications acetaminophen (Tylenol Extra Strength) 500 MG tablet Other Relevant Orders XR Knee 4+ Views Left XR Knee 4+ Views Right Chronic bilateral low back pain without sciatica Apply heat on affected area Acetaminophen and Flexeril as above Relevant Medications acetaminophen (Tylenol Extra Strength) 500 MG tablet cyclobenzaprine (Flexeril) 5 MG tablet Neck pain Apply heat on affected area acetaminophen as needed Flexeril 5 mg every 8 hours patient was counseled about side effects he is aware if causes somnolence and he is aware that he cannot drive or do activities that require his concentration on this medication Relevant Medications cyclobenzaprine (Flexeril) 5 MG tablet Head trauma Complete physical exam reassuring, 48 hours already has been passed Acetaminophen as needed documented in this encounter Miscellaneous Notes * Assessment & Plan Note - Mariah Mendoza MD - 05/23/2024 3:33 PM EST Associated Problem(s): Head trauma Complete physical exam reassuring, 48 hours already has been passed Acetaminophen as needed * Assessment & Plan Note - Mariah Mendoza MD - 05/23/2024 3:32 PM EST Associated Problem(s): Chronic bilateral low back pain without sciatica Apply heat on affected area Acetaminophen and Flexeril as above * Assessment & Plan Note - Mariah Mendoza MD - 05/23/2024 3:32 PM EST Associated Problem(s): Acute pain of both knees Acetaminophen as needed X-rays order patient will be contacted with results * Assessment & Plan Note - Mariah Mendoza MD - 05/23/2024 3:32 PM EST Associated Problem(s): Neck pain Apply heat on affected area acetaminophen as needed Flexeril 5 mg every 8 hours patient was counseled about side effects he is aware if causes somnolence and he is aware that he cannot drive or do activities that require his concentration on this medication documented in this encounter Plan of Treatment Upcoming Encounters Date Type Department Care Team (Late st Contact Info) Description 06/03/2024 1:30 PM EST Office Visit [facility] [address] [place] [address] Gemini Messer, KNOCKOUT MAN [address] [place] [address] 06/05/2024 2:00 PM EST Medication Management [facility] [address] [place] [address] Ainla Faustin, PharmD [address] [place] [address] 06/19/2024 1:30 PM EDT Office Visit [facility] [address] [place], [place] [phone] Les Felder, DMD [address] [place], [place] [phone] documented as of this encounter Procedures Procedure Name Priority Date/Time Associated Diagnosis Comments XR KNEE 4+ VIEWS RIGHT Routine 05/23/2024 3:44 PM EST Acute pain of both knees XR KNEE 4+ VIEWS LEFT Routine 05/23/2024 3:44 PM EST Acute pain of both knees documented in this encounter Results * XR Knee 4+ Views Right (05/23/2024 3:44 PM EST) Anatomical Region Laterality Modality Lower Extremities, Knee Right Radiogra phic Imaging 05/23/2024 3:44 PM EST Narrative 05/23/2024 4:36 PM EST ?[facility] ?[address] [facility] ?[place] [address] ?XRay Report ? Signed ? Patient: Vandal,Mckinley S ?MR#: [id number] ?? 2032 ? : 1965 ?Acct:[id number] ? Age/Sex: 58 / M ?ADM Date: 02/20/25 ? Loc: HO.HHCX ? Attending Dr: Mariah Mendoza MD ? Ordering Physician: Mariah Rios MD ?? Date of Service: 05/23/24 ?? Procedure(s): XR knee RT 4V ?? Accession Number(s): [id number] ? cc: Mariah Rios MD ? EXAMINATION: ?? XR KNEE, RIGHT ? CLINICAL INFORMATION: ?? pain after fall ? COMPARISON: ?? None available. ? TECHNIQUE: ?? Four views of the right knee. ? FINDINGS: ?? No fracture, dislocation, or suspicious bone lesion. Normal bone ?? mineralization. ?? There is a fibrous cortical defect present in the lateral distal ?? femoral metaphysis, benign. ?? Normal alignment. ?? Joint spaces are preserved. No significant arthropathy. ? No significant joint effusion. ? Soft tissues appear normal. ? XR/XR knee RT 4V ?? IMPRESSION: ?? 1. No acute findings right knee. ? Electronically signed by: ??Chandler York MD ??05/23/2024 04:33 PM EST RP ? Dictated By: ?Chandler York MD ? Signed By: ?<Electronically signed by Chandler York MD in OV> ?05/23/24 1633 ? DD/ 1544 ? TD/TT: 05/23/24 1616 ? Filter Cleaner: ? Procedure Note Gloria, Image - 05/23/2024 [place] [address] XRay Report Signed Patient: Mckinley Berry SMR#: [id number] 2032 : 1965Acct:[id number] Age/Sex: 58 / MADM Date: 05/23/24 Loc: HO.HHCX Attending Dr: Mariah Mendoza MD Ordering Physician: Mariah Rios MD Date of Service: 05/23/24 Procedure(s): XR knee RT 4V Accession Number(s): [id number] cc: Mariah Rios MD EXAMINATION: XR KNEE, RIGHT CLINICAL INFORMATION: pain after fall COMPARISON: None available. TECHNIQUE: Four views of the right knee. FINDINGS: No fracture, dislocation, or suspicious bone lesion. Normal bone mineralization. There is a fibrous cortical defect present in the lateral distal femoral metaphysis, benign. Normal alignment. Joint spaces are preserved. No significant arthropathy. No significant joint effusion. Soft tissues appear normal. XR/XR knee RT 4V IMPRESSION: 1. No acute findings right knee. Electronically signed by: Chandler York MD 05/23/2024 04:33 PM EST RP Dictated By: Chandler York MD Signed By: <Electronically signed by Chandler York MD in OV> 05/23/24 1633 DD/ 1544 TD/TT: 05/23/24 1616 Filter Cleaner: us Mariah Mendoza MD IMG XR PROCEDURES Fin al Result * XR Knee 4+ Views Left (05/23/2024 3:44 PM EST) Anatomical Region Laterality Modality Lower Extremities, Knee Left Radiogra phic Imaging 05/23/2024 3:44 PM EST Narrative 05/23/2024 4:35 PM EST ?[facility] ?[address] ?[place] [address] ?XRay Report ? Signed ? Patient: Mckinley Berry ?MR#: [id number] ?? 2032 ? : 1965 ?Acct:[id number] ? Age/Sex: 58 / M ?ADM Date: 05/23/24 ? Loc: HO.HHCX ? Attending Dr: Mariah Mendoza MD ? Ordering Physician: Mariah Rios MD ?? Date of Service: 05/23/24 ?? Procedure(s): XR knee LT 4V ?? Accession Number(s): [id number] ? cc: Mariah Rios MD ? EXAMINATION: ?? XR KNEE, LEFT ? CLINICAL INFORMATION: ?? pain after fall ? COMPARISON: ?? None available. ? TECHNIQUE: ?? Four views of the left knee. ? FINDINGS: ?? No fracture, dislocation, or suspicious bone lesion. Normal bone ?? mineralization. ?? Normal alignment. ?? Joint spaces are preserved. No significant arthropathy. ? No significant joint effusion. ? Soft tissues appear normal. ? XR/XR knee LT 4V ?? IMPRESSION: ?? Normal left knee. ? Electronically signed by: ??Chandler York MD ??05/23/2024 04:32 PM EST RP ? Dictated By: ?Chandler York MD ? Signed By: ?<Electronically signed by Chandler York MD in OV> ?05/23/24 1632 ? DD/ 1544 ? TD/TT: 05/23/24 1616 ? Filter Cleaner: ? Procedure Note DustinamandakymberlyYash de los santos - 05/23/2024 [facility] [address] [place] [address] XRay Report Signed Patient: Mckinley Berry SMR#: [id number] 2031 : 1965Acct:[id number] Age/Sex: 58 / MADM Date: 05/23/24 Loc: HO.HHCX Attending Dr: Mariah Mendoza MD Ordering Physician: Mariah Rios MD Date of Service: 05/23/24 Procedure(s): XR knee LT 4V Accession Number(s): [id number] cc: Mariah Rios MD EXAMINATION: XR KNEE, LEFT CLINICAL INFORMATION: pain after fall COMPARISON: None available. TECHNIQUE: Four views of the left knee. FINDINGS: No fracture, dislocation, or suspicious bone lesion. Normal bone mineralization. Normal alignment. Joint spaces are preserved. No significant arthropathy. No significant joint effusion. Soft tissues appear normal. XR/XR knee LT 4V IMPRESSION: Normal left knee. Electronically signed by: Chandler York MD 05/23/2024 04:32 PM EST Dictated By: Chandler York MD Signed By: <Electronically signed by Chandler York MD in OV> 05/23/24 1632 DD/ 1544 TD/TT: 05/23/24 1616 Filter Cleaner: us Mariah Mendoza MD IMG XR PROCEDURES Fin al Result documented in this encounter Visit Diagnoses Diagnosis Acute pain of both knees- Primary Chronic bilateral low back pain without sciatica Neck pain Cervicalgia Traumatic injury of head, initial encounter documented in this encounter Additional Health Concerns Assessment Noted Time PHQ-9 Depression Total Score: 11 025 1:12 PM EST documented as of this encounter Care Teams Foundation Drill Operator Helper Relationship Specialty Start Date End Date Gemini Messer NP [address] [place] [address] PCP - General Family Medicine 02/08/24 documented as of this encounter
--- OUTSIDE RECORDS SUMMARY | 2024-05-23 16:40 | XMS_ITS | Encounter Summary ---
Author Organization [employer] Address [address] [facility] 7t [place] [address] Care Team Providers Care Artistic Associate Name Role Phone Ruthie SchwarzP Primary Care Provider [phone] Yamile Ramsay SENIOR CYTOGENETIC TECHNOLOGIST Primary Care Provider [phone] Gemini Messer DIALYSIS PATIENT CARE TECHNICIAN Primary Care Provider [phone] Reason for Visit * Reason Onset Date Comments triage 04/27/2022 Encounter Details Date Type Department Care Team ([facility] st Contact Info) Description 04/27/2022 Telephone [facility] [address] [place] [address] Ruthie Schwarz FNP [address] [place], [place] [phone] triage Social History Tobacco Use Types Packs/Day Years Used Date Smoking Tobacco: Never Assessed Sex and Gender Information Value Date Recorded Sex Assigned at Male 01/31/2022 10:22 AM EDT Legal Sex Male 10:22 AM EDT Gender Identity Male 01/31/2022 10:22 AM EDT Sexual Orientation Straight 01/31/2022 10 :22 AM EDT documented as of this encounter Miscellaneous Notes * Telephone Encounter - Annabelle Prasons - 04/27/2022 3:28 PM EST Tc from pt calling stating that medication Mapap 500mg its not working. Script directions is take 1tab every 8 hours as need but pt is doing 2 tab sometimes pt is 10 days early. documented in this encounter Plan of Treatment Upcoming Encounters Date Type Department Care Team (Late st Contact Info) Description 06/03/2024 1:30 PM EST Office Visit [facility] [address] [place] [address] Gemini Messer NP [address] [place] [address] 06/05/2024 2:00 PM EST Medication Management [facility] [address] [place] [address] Anila Faustin, PharmD [address] [place] [address] 06/19/2024 1:30 PM EDT Office Visit [facility] [address] [facility], [place] [phone] Les Felder, DMD [address] [place] [address] documented as of this encounter Visit Diagnoses Not on filedocumented in this encounter Care Teams Artistic Associate Relationship Specialty Start Date End Date Ruthie Schwarz FNP [address] [place] [id number] PCP - General Family Medicine 11/25/21 01/23/24 Yamile Ramsay FNP [address] [place] [address] PCP - General Family Medicine 01/24/24 02/01/24 Gemini Messer NP [address] [place] [address] PCP - General Family Medicine 02/08/24 documented as of this encounter
--- OUTSIDE RECORDS SUMMARY | 2024-05-23 16:40 | XMS_ITS | Encounter Summary ---
Author Organization [employer] Address [address] [place] [address] 7t [place] [address] Care Team Providers Care Corporate Compliance Officer Name Role Phone Ruthie Schwarz PHYSICIAN OPHTHALMOLOGIST Primary Care Provider [phone] Yamile Ramsay PHYSICIAN OPHTHALMOLOGIST Primary Care Provider [phone] Gemini Messer NP Primary Care Provider [phone] Encounter Details Date Type Department Care Team (Late st Contact Info) Description 04/15/2022 Orders Only [facility] [address] [place] [address] Payton Knutson LPN Social History Tobacco Use [...] Description 06/03/2024 1:30 PM EST Office Visit [facility] [address] [place] [phone] Gemini Messer NP [address] [place], [place] [phone] 06/05/2024 2:00 PM EST Medication Management [facility] [address] [place] [address] Anila Faustin, PharmD [address] [place], [place] [phone] 06/19/2024 1:30 PM EDT Office Visit [facility] [address] [place] [address] Les Felder, DMD [address] [place] [address] documented as of this encounter Visit Diagnoses Not on filedocumented in this encounter Care Teams Corporate Compliance Officer Relationship Specialty Start Date End Date Ruthie Schwarz FNP [address] [place] [address] PCP - General Family Medicine 11/25/21 01/23/24 Yamile Ramsay FNP [address] [place] [address] PCP - General Family Medicine 01/24/24 02/01/24 Gemini Mesesr NP [address] [place] [address] PCP - General Family Medicine 02/08/24 documented as of this encounter
--- OUTSIDE RECORDS SUMMARY | 2024-05-23 16:40 | XMS_ITS | Encounter Summary ---
Author Organization [employer] Address [address] [facility] 7t [place] [address] Care Team Providers Care Platform Mill Supervisor Name Role Phone Gui Gemini GAURAV Primary Care Provider [phone] Reason for Visit * Reason Comments Consult Encounter Details Date Type Department Care Team ([facility] st Contact Info) Description 05/08/2024 3:00 PM EST Office Visit [facility] [address] [place] [address] Les Felder, FRANCHESCA [address] [place] [address] Social History Tobacco Use Types Packs/Day Years [...] AM EDT documented as of this encounter Progress Notes * Les Felder DMD - 05/08/2024 3:00 PM EST Pt presents for evaluation for extraction of tooth 17; Cx of pain, swelling PMHx, Medications and allergies reviewed and appreciated PE: occlusal table visible tooth 17 with purulent discharge; OCS otherwise negative PANO: partial bone impacted tooth 17 Dx: symptomatic partial bone impacted tooth 17 R/B/I/A for extraction of partial bone impacted tooth 17 under local anesthesia reviewed NV: extraction of partial bone impacted tooth 17 under local anesthesia documented in this encounter Plan of Treatment Upcoming Encounters Date Type Department Care Team (Late st Contact Info) Description 06/03/2024 1:30 PM EST Office Visit [facility] [address] [place] [address] Gemini Messer NP [address] [place] [address] 06/05/2024 2:00 PM EST Medication Management [facility] [address] [place] [address] Anila Faustin, PharmD [address] [place] [address] 06/19/2024 1:30 PM EDT Office Visit [facility] [address] [place] [address] TaylorLes cabrera, DMD [address] [place] [address] Scheduled Orders Name Type Priority Associated Diagnoses Orde r Schedule 17 17 ORAL & MAXILLOFACIAL SURGERY - EXTRACTIONS (INCLUDES LOCAL ANESTHESIA, SUTURING, IF NEEDED, AND ROUTINE POSTOPERATIVE CARE) - REMOVAL OF IMPACTED TOOTH - PARTIALLY BONY Dental Routine [address] [place] 05/08/2024 documented as of this encounter Procedures Procedure Name Priority Date/Time Associated Diagnosis Comments CONSULTATION - DIAGNOSTIC SERVICE PROVIDED BY DENTIST OR PHYSICIAN OTHER THAN REQUESTING DENTIST OR PHYSICIAN Routine 05/08/2024 3:00 PM EST documented in this encounter Visit Diagnoses Not on filedocumented in this encounter Additional Health Concerns Assessment Noted Time PHQ-9 Depression Total Score: 11 025 1:12 PM EST documented as of this encounter Care Teams Platform Mill Supervisor Relationship Specialty Start Date End Date Gemini Messer NP [address] [place] [address] PCP - General Family Medicine 02/08/24 documented as of this encounter
--- OUTSIDE RECORDS SUMMARY | 2024-05-23 16:40 | XMS_ITS | Encounter Summary ---
Author Organization [facility] [employer] Address [address] [place] [address] 7t [place] [address] Care Team Providers Care Artificial Fly Tier Name Role Phone Ruthie Schwarz Primary Care Provider [phone] Yamile Ramsay ASSISTANT LABORATORY DIRECTOR Primary Care Provider Gemini Messer NP Primary Care Provider [phone] Reason for Visit * Reason Comments Med Refill Encounter Details Date Type Department Care Team (Late st Contact Info) Description 09/29/2023 Refill [facility] MEDICINE [address] [place] [address] Ruthie Schwarz FNP [address] [place], [place] [phone] Type 2 diabetes mellitus treated with insulin ([facility]) Social History Tobacco Use Types Packs/Day Years [...] Description 06/03/2024 1:30 PM EST Office Visit [facility] MEDICINE [address] [place], [place] [phone] Gemini Messer NP 230 [place], [place] [phone] 06/05/2024 2:00 PM EST Medication Management [facility] MEDICINE [address] [place] [address] Anila Faustin, Connie [address] [place] [address] 06/19/2024 1:30 PM EDT Office Visit [facility] CHC ADULT DENTAL [address] [place], [place] [phone] Les Felder, DMD [address] [place] [address] documented as of this encounter Visit Diagnoses Diagnosis Type 2 diabetes mellitus treated with insulin ([facility]) documented in this encounter Care Teams Artificial Fly Tier Relationship Specialty Start Date End Date Ruthie Schwarz FNP [address] [place] [address] PCP - General Family Medicine 11/25/21 01/23/24 Yamile Ramsay FNP [address] [place] [address] PCP - General Family Medicine 01/24/24 02/01/24 Gemini Messer NP [address] [place] [address] PCP - General Family Medicine 02/08/24 documented as of this encounter
--- OUTSIDE RECORDS SUMMARY | 2024-05-23 16:40 | XMS_ITS | Encounter Summary ---
Author Organization [employer] Address [address] [facility] 7t [place] [address] Care Team Providers Care Log Check Scaler Name Role Phone Gemini Messer NP Primary Care Provider [phone] Reason for Visit * Reason Comments Med Refill Encounter Details Date Type Department Care Team ([facility] st Contact Info) Description 04/23/2024 Refill [facility] MEDICINE 230 [place], [place] [phone] Gemini Messer NP 230 [place] [address] Type 2 diabetes mellitus treated with insulin ([facility]) Social History Tobacco Use Types Packs/Day Years [...] Description 06/03/2024 1:30 PM EST Office Visit [facility] MEDICINE [address] [place] [address] Gemini Messer, GAURAV 230 [place] [address] 06/05/2024 2:00 PM EST Medication Management [facility] MEDICINE [address] [place] [address] Anila Faustin, PharmD 230 [place] [address] 06/19/2024 1:30 PM EDT Office Visit [facility] CHC ADULT DENTAL [address] [place], [place] [phone] Les Felder, FRANCHESCA [address] [place], [place] [phone] documented as of this encounter Visit Diagnoses Diagnosis Type 2 diabetes mellitus treated with insulin (CMS/HCC) documented in this encounter Additional Health Concerns Assessment Noted Time PHQ-9 Depression Total Score: 11 025 1:12 PM EST documented as of this encounter Care Teams Log Check Scaler Relationship Specialty Start Date End Date Gemini Messer NP 230 [place] [address] PCP - General Family Medicine 02/08/24 documented as of this encounter
--- OUTSIDE RECORDS SUMMARY | 2024-05-23 16:40 | XMS_ITS | Encounter Summary ---
Author Organization [employer] Address [address] [facility] 7t [place] [address] Care Team Providers Care Detasseler Name Role Phone Gemini Messer NP Primary Care Provider [phone] Encounter Details Date Type Department Care Team (Late st Contact Info) Description 05/16/2024 Orders Only [facility] MEDICINE [address] [place], [place] [phone] Gemini Messer NP 230 [place], [place] [phone] Social History Tobacco Use Types Packs/Day Years [...] Description 06/03/2024 1:30 PM EST Office Visit [facility] MEDICINE [address] [place] [address] Gemini Messer NP 230 [place] [address] 06/05/2024 2:00 PM EST Medication Management [facility] MEDICINE 230 [place] [address] Anila Faustin, PharmD 230 [place] [address] 06/19/2024 1:30 PM EDT Office Visit [facility] CHC ADULT DENTAL 505 [place] [address] Les Felder, DMD [address] [place] [address] documented as of this encounter Visit Diagnoses Not on filedocumented in this encounter Additional Health Concerns Assessment Noted Time PHQ-9 Depression Total Score: 11 025 1:12 PM EST documented as of this encounter Care Teams Detasseler Relationship Specialty Start Date End Date Gemini Messer NP 230 [place] [address] PCP - General Family Medicine 02/08/24 documented as of this encounter
--- OUTSIDE RECORDS SUMMARY | 2024-05-23 16:40 | XMS_ITS | Encounter Summary ---
Author Organization [facility] [employer] Address [address] [place] [address] 7t [place] [address] Care Team Providers Care Mdm Developer Name Role Phone Ruthie Schwarz MATERIAL COMBINER Primary Care Provider [phone] Yamile Ramsay MATERIAL COMBINER Primary Care Provider [phone] Gemini Messer NP Primary Care Provider [phone] Reason for Visit * Reason Comments Med Refill Encounter Details Date Type Department Care Team (Late st Contact Info) Description 01/18/2024 Refill [facility] CHC MED & PEDS [address] [place], [place] [phone] Ruthie Schwarz MATERIAL COMBINER 505 [place], [place] [phone] Type 2 diabetes mellitus treated with insulin ([facility]) Social History Tobacco Use Types Packs/Day Years [...] Description 06/03/2024 1:30 PM EST Office Visit [facility] MEDICINE 230 [place], [place] [phone] Gemini Messer NP [address] [place], [place] [phone] 06/05/2024 2:00 PM EST Medication Management [facility] MEDICINE [address] [place] [address] Anila Faustin, CachorroD 230 [place] [address] 06/19/2024 1:30 PM EDT Office Visit [facility] CHC ADULT DENTAL [address] [place], [place] [phone] Les Felder, DMD [address] [place] [address] documented as of this encounter Visit Diagnoses Diagnosis Type 2 diabetes mellitus treated with insulin ([facility]) documented in this encounter Care Teams Mdm Developer Relationship Specialty Start Date End Date Ruthie Schwarz FNP [address] [place] [address] PCP - General Family Medicine 11/25/21 01/23/24 Yamile Ramsay FNP [address] [place] [address] PCP - General Family Medicine 01/24/24 02/01/24 Gemini Messer NP [address] [place] [address] PCP - General Family Medicine 02/08/24 documented as of this encounter
--- OUTSIDE RECORDS SUMMARY | 2024-05-23 16:40 | XMS_ITS | Encounter Summary ---
Author Organization [employer] Address [address] [place] [address] 7t [place] [address] Care Team Providers Care Applications Analyst Name Role Phone HeathGemini landry GAURAV Primary Care Provider [phone] Reason for Visit * Reason Onset Date Comments Results 05/02/2024 ER Expect 05/02/2024 Encounter Details Date Type Department Care Team ([facility] st Contact Info) Description 05/02/2024 Telephone [facility] MEDICINE 230 [place], [place] [phone] Suzy Escobar MD [address] [place], [place] [phone] Results; ER Expect Social History Tobacco Use Types Packs/Day Years [...] encounter Miscellaneous Notes * Telephone Encounter - Amy Stokes RN - 05/08/2024 10:57 AM EST Telephone call to pt, repeated message to go to ED for osteomyelitis per Dr Escobar on 05/02/24. Ptreports not having gone to the ED yet. He states he went to [facility] on 05/06/24 for follow up appt with PCP Gemini Messer NP and was prescribed 2 antibiotics (Augmentin and Doxycycline). Pt reports my foot looks much better, it's all healed up now, nothing is open, the color is normal again. Advised him that Dr Escobar still wanted him to go to ED because the infection is inside the foot in the bone and could spread, however the pt states he was told to take the antibiotics now and repeated that his foot is doing better. Advised him message would be sent to PCP and Dr Escobar for clarification regarding plan of care going forward and any updates would be communicated back to him. Pt verbalized understanding, no further questions. * Telephone Encounter - Dominique Hui RN - 05/04/2024 9:10 AM EST Telephone call placed to pt who is very upset. Reports that he went to the hospital twice and they told him they didn't know what he was talking about. Pt was under the impression that he needed to go to the lab at [facility]. Reports went and there was nothing in their system.Went again Monday and there was nothing. Then he came to [facility] at 3PM and we were closed for a company event. Reports that he isn't feeling well and was soaking wet yesterday from going back and forth in the rain. I apologized for the inconvenience multiple times. Explained that he was supposed to [facility] ED for bone infection. Explained that if it gets bad, sometimes they haveto amputate so it is super important he goes to the hospital. Pt states that he thinks his foot looks better than it did when imaging was done but he wants to get it checked out just in case. Pt reports isn't feeling well enough to go today. Tomorrow he goes to [facility]. Might go on Monday if he has time. Was able to deescalate pt. Informed him I would keep an eye on his chart to make sure all goeswell at hospital. Pt verbalized understanding and denied having any further questions or concerns at this time. * Telephone Encounter - Dominique Hui RN - 05/03/2024 12:38 PM EST Per [facility] and [facility] systems, pt did not go to the ED as directed. Telephone call placed to pt to encourage to go. No answer * Telephone Encounter - Dominique Hui RN - 05/02/2024 1:24 PM EST Called in expect to [facility] ED and faxed results to them. Will monitor pt's [facility] chart * Telephone Encounter - Suzy Escobar MD - 05/02/2024 12:56 PM EST X ray and MR just reported as osteomyelitis of the toes. I called patient at [phone] to let him know and advise he goes to the ER for admission. Please advise pt to go to ER for osteomyelitis and call ER for expect and fax x ray and MRI. Thank you. Please check status in pm that pt is in ER. Thank you. documented in this encounter Plan of Treatment Upcoming Encounters Date Type Department Care Team (Late st Contact Info) Description 06/03/2024 1:30 PM EST Office Visit [facility] MEDICINE [address] [place] [address] Gemini Messer NP [address] [place] [address] 06/05/2024 2:00 PM EST Medication Management [facility] MEDICINE 230 [place] [address] Anila Faustin, PharmD 230 [place] [address] 06/19/2024 1:30 PM EDT Office Visit [facility] CHC ADULT DENTAL 505 [place] [address] Les Felder, DMD 505 [place] [address] documented as of this encounter Visit Diagnoses Not on filedocumented in this encounter Additional Health Concerns Assessment Noted Time PHQ-9 Depression Total Score: 11 025 1:12 PM EST documented as of this encounter Care Teams Applications Analyst Relationship Specialty Start Date End Date Gemini Messer NP [address] [place] [address] PCP - General Family Medicine 02/08/24 documented as of this encounter
--- OUTSIDE RECORDS SUMMARY | 2024-05-23 16:40 | XMS_ITS | Encounter Summary ---
Author Organization [facility] [employer] Address [address] [place] [address] 7t [place] [address] Care Team Providers Care Postdoctoral Scholar Name Role Phone Ruthie Schwarz TRUST VAULT CUSTODIAN Primary Care Provider [phone] Yamile Ramsay TRUST VAULT CUSTODIAN Primary Care Provider [phone] Gemini Messer NP Primary Care Provider [phone] Encounter Details Date Type Department Care Team (Late st Contact Info) Description 05/25/2022 Orders Only [facility] CHC MED & PEDS 505 [place] [address] Payton Knutson LPN Social History Tobacco Use [...] Description 06/03/2024 1:30 PM EST Office Visit [facility] MEDICINE [address] [place] [phone] Gemini Messer NP 230 [place], [place] [phone] 06/05/2024 2:00 PM EST Medication Management [facility] MEDICINE 230 [place] [address] Anila Faustin, PharmD 230 [place], [place] [phone] 06/19/2024 1:30 PM EDT Office Visit [facility] ADULT DENTAL [address] [place] [address] Les Felder, DMD [address] [place] [address] documented as of this encounter Visit Diagnoses Not on filedocumented in this encounter Care Teams Postdoctoral Scholar Relationship Specialty Start Date End Date Ruthie Schwarz FNP [address] [place] [address] PCP - General Family Medicine 11/25/21 01/23/24 Yamile Ramsay FNP [address] [place] [address] PCP - General Family Medicine 01/24/24 02/01/24 Gemini Messer NP [address] [place] [address] PCP - General Family Medicine 02/08/24 documented as of this encounter
--- OUTSIDE RECORDS SUMMARY | 2024-05-23 16:40 | XMS_ITS | Data Portability ---
Author Organization [employer] Address [address] [place] [phone] Care Team Providers Care Mortgage Loan Officer Originator Name Role Phone HIM [facility] OTHER [facility] OTHER Assessment Encounter Date Assessment Date [...] Orders doxycycline hyclate 100 mg capsule 2023 [facility], [address] [place] [address], [id number], 10:35:27 doxycycline hyclate 100 mg tablet 2023 [facility], [address] [place] [address], [id number], 17:45:25 Patient TargetsNo targets recorded. Patient InstructionsNo instructions recorded. Reason for Referral None Reported. Medical Equipment None Reported. Allergies Allergen ID Allergen Name Allergen Category Reaction Reaction Severity Criticality Documentation Date Start Date Code Code System Note Provider Name and Address Organization Details Recorded Time 5761 Cialis medicatio n Not available Not available Not available 11/02/2023 56587 3 RxNorm Mabel Goddard MD [address] [place] [address],[address], [place], [phone], [employer] 13:39:30 Medications Name Sig Start Date Stop [...] % 99 % 16 /min 97.1 [degF] 17307.3 2 g 182.88 cm 84 /min 122 mm[Hg] 83 mm[Hg] Not Available [employer] - production 4 13:35:39 Date Recorded Body weight Body height Body temperature Oxygen saturation Oxygen saturation in Arterial blood by Pulse oximetry Respiratory rate Heart rate Systolic blood pressure Diastolic blood pressure Provider Name and Address Organization Details Last Updated DateTime 4 70358.6 g 172.72 cm 98.4 [degF] 98 % [...] SNOMED-CT Code Diagnosis ICD10 Code Diagnosis Note 56722 Mabel Goddard MD Main - [address] [address] 11/02/2023 13:35:26 11/05/2023 21:50:53 Diabetic foot ulcer 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 E13.621 [address] Juan Antonio Sun MD Main - [address] [address] 01/23/2024 17:34:23 01/24/2024 00:02:04 Cellulitis of left lower limb 9640285401 5762666 L03.116 Health Concerns Section Related Observation LastModified by Organization Detai ls LastModified Time None Recorded Concern Status LastModified by Organization Details LastModified Time None Recorded Advance Directives Directive None Recorded Payers Encounter Date Sequence Insurance Name Policy Number Policy Dubose Covered Member ID Dubose Member ID Guarantor Name 11/02/2023 1 [facility] - DOS ON OR AFTER 2022 - DUAL ELIGIBLE - FDC OPTIONS AND ONE CARE (MEDICARE REPLACEMENT/ADV ANTAGE - HMO) Mckinley Berry [id number] Mckinley Berry 01/23/2024 1 [facility] - DOS ON OR AFTER 2022 - DUAL ELIGIBLE - FDC OPTIONS AND ONE CARE (MEDICARE REPLACEMENT/ADV ANTAGE - HMO) Mckinley Berry [id number] Mckinley Berry Notes Date Note Type Note Provider Name and Address Organization Details Recorded Time 11/02/2023 text/html HPI: blood sugar in 300s, open wound near toes on right foot Member is followed by ID due to h/o sepsis .................... .................... .................... .................... .................... .................... .................... . [facility] Nurse Triage Notes (Amy Johnston): Chief Complaints: Wound Care PMH: Diabetes, Hypertension Other Allergies: tadalafil Comments: Rrt verified the member's name//address and phone number. [...] .................... .................... .................... .................... .................... .................... . Otr Driver Note From Cheng Sapp: Smartcare visit for [...] Affected toe's examined with images sent to [facility]. Consulted with [facility] Dr. Goddard who said she would put in request to PCP to have patient seen sooner to address issues and get possible xray of the foot. Reviewed red flags for ED. Patient education provided. .................... .................... .................... .................... .................... .................... .................... . Disposition: Yvonne Goddard MD [address] [place] [address],[address], [place], [address], [employer] 11/02/2023 15:00:39 01/23/2024 text/html HPI: anxiety, chronic [...] CRC RN DID NOT NEED FURTHER INFO Otr Driver Organization Information for Dallin Lawrence Business Legal Name: [facility] [employer] Address: [address] [place] [address], [place] Aceves [address], [employer] Offbearer: Kehinde JACOBSON No.: [id number] Otr Driver POC Test Results from Dallin Lawrence Blood Glucose Measurement (17:15:08) Blood Glucose: 328 mg/dL .................... .................... .................... .................... .................... .................... .................... . Otr Driver Note From Dallin Lawrence: Patient conscious and [...] extra heat, discolored discharge, or current bleeding noted.[facility] orders doxycycline 200 mg PO now and will call in more to patient? s local pharmacy. Supportive care, including cleaning and use of triple antibiotic ointment discussed. Red flags, and patient education discussed.Note: [id number]. 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 Patient? s BGL equals 228 MG/DL [facility] Medication Orders: doxycycline hyclate 100 mg tablet: Administered .................... .................... .................... .................... .................... .................... .................... . Disposition: Fulfilled Juan Antonio Sun MD [address] [facility],[address] [facility], [place], [address], JAH SOLER 01/23/2024 20:59:30
--- OUTSIDE RECORDS SUMMARY | 2024-05-23 16:40 | XMS_ITS | Clinical Summary ---
Author Organization [employer] Address [address] [place] [address] [address] [place] [address] Care Team Providers Care Division Superintendent Name Role Phone Gemini Messer NP Primary Care Provider [phone] Allergies Active Allergy Reactions Criticality Noted Date Comments Hornet Venom 04/07/2016 Lanolin 05/23/2018 Other reaction(s): Rash, Rash Raspberry Anaphylaxis High 04/07/2016 Tadalafil 12/24/2015 Other reaction(s): throat closes up, can't breathe Medications Agustina-Dryl 25 MG tabletIndicatio ns:Itching Take 1 tablet by mouth at bedtime as needed 90 tablet 3 023 Active Ventolin HFA 108 (90 Base) MCG/ACT inhalerIndicati ons:Moderate asthma, unspecified whether complicated, unspecified whether persistent INHALE 2 PUFFS FOUR TIMES DAILY NEEDED 18 g 3 023 Active ipratropium-alb uterol (Duo-Neb) 0.5-2.5 mg/3 mL nebulizer solutionIndicat ions:Moderate persistent asthma, unspecified whether complicated INHALE 1 AMPULE USING A NEBULIZER FOUR TIMES DAILY NEEDED 360 mL 11 023 Active hydrOXYzine pamoate (Vistaril) 50 MG capsule TAKE 1 CAPSULE BY MOUTH THREE TIMES DAILY NEEDED SEVERE ANXIETY 90 capsule 023 Active Aspirin Low Dose 81 MG EC tabletIndicatio ns:Other hyperlipidemia, Type 2 diabetes mellitus without complication, with long-term current use of insulin (CMS/HCC) TAKE 1 TABLET BY MOUTH EVERYDAY AT NOON 90 tablet 3 024 Active metFORMIN (Glucophage) 500 MG tablet TAKE 1 TABLET BY MOUTH TWICE DAILY IN THE MORNING AND IN THE EVENING 180 tablet 3 024 Active Easy Touch Lancets 33G/Twist miscIndications :Diabetic peripheral neuropathy associated with type 2 diabetes mellitus ([facility]/HCC) TEST BLOOD SUGAR FOUR TIMES DAILY 100 each 024 Active FREESTYLE LITE test stripIndication s:Diabetic peripheral neuropathy associated with type 2 diabetes mellitus ([facility]) TEST BLOOD SUGAR 4 TIMES A DAY 200 strip Active insulin pen needle (TechLite Plus Pen [place]) 32G x 4 mm miscIndications :Diabetic nephropathy associated with type 2 diabetes mellitus ([facility]) USE DIRECTED FOUR TIMES DAILY 100 each Active QUEtiapine (SEROquel) 300 MG tablet Active sertraline (Zoloft) 100 MG tablet 024 Active loratadine (Claritin) 10 MG tablet TAKE 1 TABLET BY MOUTH EVERYDAY AT NOON 90 tablet 1 Active Alcohol Swabs (Alcohol Prep) 70 % padsIndications :Type 2 diabetes mellitus with hyperglycemia, unspecified whether director long term care insulin use ([facility]) USE DIRECTED TEST BLOOD SUGAR & INJECTING INSULIN 100 each 11 Active carvedilol (Coreg) 12.5 MG tabletIndicatio ns:Primary hypertension TAKE 1 TABLET BY MOUTH TWICE DAILY IN THE MORNING AND IN THE EVENING WITH FOOD 180 tablet 1 024 Active glipiZIDE (Glucotrol) 10 MG tabletIndicatio ns:Type 2 diabetes mellitus with hyperglycemia, unspecified whether residential insulin use ([facility]) TAKE 1 TABLET BY MOUTH TWICE DAILY IN THE MORNING AND IN THE EVENING BEFORE MEALS 180 tablet 1 024 Active Acetaminophen (Mapap) 500 MG capsuleIndicati ons:Pain TAKE 1 CAPSULE BY MOUTH EVERY 8 HOURS NEEDED FOR PAIN OR FOR FEVER 100 capsule 2 024 Active amitriptyline (Elavil) 50 MG tabletIndicatio ns:Depressive disorder TAKE 1 TABLET BY MOUTH AT BEDTIME 90 tablet 3 024 Active simvastatin (Zocor) 40 MG tablet TAKE 1 TABLET BY MOUTH EVERY EVENING 90 tablet 1 025 Active fenofibrate (Triglide) 160 MG tablet TAKE 1 TABLET BY MOUTH EVERYDAY AT NOON 90 tablet 1 025 Active omeprazole (PriLOSEC) [address] capsule TAKE 1 CAPSULE BY MOUTH TWICE DAILY IN THE MORNING AND IN THE EVENING 180 capsule 2 Active gabapentin (Neurontin) 800 MG tabletIndicatio ns:Type 2 diabetes mellitus treated with insulin ([facility]) TAKE 1 TABLET BY MOUTH THREE TIMES DAILY IN THE MORNING, EVENING, AND BEDTIME 90 tablet Active NovoLOG FLEXPEN 100 UNIT/ML penIndications: Type 2 diabetes mellitus treated with insulin ([facility]) INJECT 20 UNITS SUBCUTANEOUSLY THREE TIMES DAILY BEFORE MEALS 100-149=12 UNITS, 150-199=14 UNITS, 200-249=16 UNITS, 250-299=18 UNITS, 300 AND ABOVE=20 UNITS 30 mL 025 Active Lantus SoloStar 100 UNIT/ML penIndications: Type 2 diabetes mellitus treated with insulin ([facility]) INJECT 45 UNITS SUBCUTANEOUSLY AT BEDTIME 15 mL Active fluticasone (Flonase) 50 MCG/ACT nasal spray INSTILL 2 SPRAYS IN EACH NOSTRIL ONCE DAILY 16 g Active Continuous Glucose [place] Operator (FreeStyle Lenny 3 [place]) deviceIndicatio ns:Type 2 diabetes mellitus with hyperglycemia, with long-term current use of insulin ([facility]) 1 each Once per day. 1 each Active Continuous Glucose Sensor (FreeStyle Lenny 3 Plus Sensor) miscIndications :Type 2 diabetes mellitus with hyperglycemia, with long-term current use of insulin ([facility]) 1 each Once per day. Apply 1 sensor every 15 days 2 each Active glucose blood (FreeStyle Precision Enoch Test) test stripIndication s:Type 2 diabetes mellitus with hyperglycemia, with long-term current use of insulin ([facility]) Test TID 100 each 025 2025 Active Fluticasone-Diallo meterol 500-50 MCG/ACT aerosol powder Inhale 1 puff 2 times daily. Rinse and spit after each use. 60 each 3 Active acetaminophen (Tylenol Extra Strength) 500 MG tabletIndicatio ns:Acute pain of both knees,Chronic bilateral low back pain without sciatica Take 2 tablets (1,000 mg) by mouth every 8 (eight) hours if needed for mild pain for up to 10 days. 30 tablet 025 2024 Active cyclobenzaprine (Flexeril) 5 MG tabletIndicatio ns:Chronic bilateral low back pain without sciatica,Neck pain Take 1 tablet (5 mg) by mouth 3 times daily for 10 days. 30 tablet 025 2024 Active omeprazole (PriLOSEC) [address] capsule TAKE 1 CAPSULE BY MOUTH TWICE DAILY IN THE MORNING AND IN THE EVENING 180 capsule 1 024 2024 Discontinued gabapentin (Neurontin) 800 MG tabletIndicatio ns:Type 2 diabetes mellitus treated with insulin ([facility]) TAKE 1 TABLET BY MOUTH THREE TIMES DAILY IN THE MORNING, EVENING, AND BEDTIME 90 tablet 1 024 2024 Discontinued insulin aspart (NovoLOG FLEXPEN) 100 UNIT/ML penIndications: Type 2 diabetes mellitus treated with insulin ([facility]) INJECT 20 UNITS SUBCUTANEOUSLY THREE TIMES DAILY BEFORE MEALS 100-149=12 UNITS, 150-199=14 UNITS, 200-249=16 UNITS, 250-299=18 UNITS, 300 AND ABOVE=20 UNITS 30 mL 024 2024 Discontinued Lantus SoloStar 100 UNIT/ML penIndications: Type 2 diabetes mellitus treated with insulin ([facility]) INJECT 45 UNITS SUBCUTANEOUSLY AT BEDTIME 15 mL 1 024 2024 Discontinued fluticasone (Flonase) 50 MCG/ACT nasal spray INSTILL 2 SPRAYS IN EACH NOSTRIL ONCE DAILY 16 g 024 2024 Discontinued Fluticasone-Diallo meterol 500-50 MCG/ACT aerosol powderIndicatio ns:Moderate persistent asthma without complication INHALE 1 PUFF BY MOUTH TWICE DAILY RINSE MOUTH AFTER USING. 60 each 1 024 2024 Discontinued(O ther) amoxicillin-cla vulanate (Augmentin) 875-125 MG tabletIndicatio ns:Osteomyeliti s of right foot, unspecified type ([facility]) Take 1 tablet by mouth 2 times daily for 14 days. 28 tablet 025 2024 doxycycline (Vibra-Tabs) 100 MG tabletIndicatio ns:Osteomyeliti s of right foot, unspecified type (CMS/HCC) Take 1 tablet (100 mg) by mouth 2 times daily for 14 days. Take with a full glass of water and do not lie down for at least 30 minutes after. 28 tablet 025 2024 Hospital, Clinic, or Other Facility Administered Medication Ordered Dose Route Frequency Start Date End Date Status Insulin Lispro solution 10 UnitsIndications:Type 2 diabetes mellitus with hyperglycemia, with long-term current use of insulin (CMS/HCC) 10 Units IJ Once 05/06/2024 05/06/2024 Ended Active Problems Problem Noted Date Diagnosed Date Acute pain of both knees 05/23/2024 Assessment & Plan (05/23/2024 3:32 PM EST): Acetaminophen as needed X-rays order patient will be contacted with results Chronic bilateral low back pain without sciatica 05/23/2024 Assessment & Plan (05/23/2024 3:32 PM EST): Apply heat on affected area Acetaminophen and Flexeril as above Neck pain 05/23/2024 Assessment & Plan (05/23/2024 3:32 PM EST): Apply heat on affected area acetaminophen as needed Flexeril 5 mg every 8 hours patient was counseled about side effects he is aware if causes somnolence and he is aware that he cannot drive or do activities that require his concentration on this medication Head trauma 05/23/2024 Assessment & Plan (05/23/2024 3:33 PM EST): Complete physical exam reassuring, 48 hours already has been passed Acetaminophen as needed Type 2 diabetes mellitus wit h hyperglycemia, with long-term current use of insulin 05/22/2024 Assessment & Plan (05/22/2024 12:12 PM EST): -A1c above goal of <7%. POCT A1c 11.7% and glucose 237 mg/dL today -continue: novolog sliding scale, metformin, glipizide, and lantus -microalbumin: ordered today -foot exam: completed today -dental: up to date -eye exam: referral placed -daily foot exams encouraged -low carb, low sugar diet and daily physical activity advised -follow-up 1 month Encounter to establish care 05/22/2024 Assessment & Plan (05/22/2024 12:13 PM EST): -patient here for transfer patient visit -personal medical, surgical, and medication histories reviewed along with family hx -specific diabetes mellitus care discussed. Plan to discuss health maintenance at subsequent visits Ulcer of both feet 02/20/2024 Assessment & Plan (05/22/2024 12:17 PM EST): -x-ray completed 03/14/24 suspicious for osteomyelitis, for which patient did not go to the ED for IV treatment as recommended by ordering provider. -bilateral foot ulcers with noted improvement as compared to previous exam in March -MRI ordered for confirmation of osteomyelitis; will treat accordingly pending results Assessment & Plan (02/20/2024 4:51 PM EST): Mr. Berry is high risk for foot infection. No evidence of infection on exam. X rays ordered to eval for osteomyelitis. Wounds dressed today. -referral to podiatry placed 02/20/24 and rx for diabetic shoes written -he was given follow up with PCP as scheduled -ER precautions discussed. He agrees with the plan. Neuropathy 02/20/2024 Elevated LFTs 03/22/2023 03/22/2023 Dyspnea 03/22/2023 03/22/2023 Cocaine use 01/27/2023 Bilateral impacted cerumen 01/25/2023 Assessment & Plan (01/25/2023 3:41 PM EDT): Debrox for 5 days than come back for ear lavage appointment Superficial injury of gingiva with infection Assessment & Plan (01/25/2023 3:41 PM EDT): I advise patient to make a dental appointment Moderate persistent asthma without complication 10/14/2022 Assessment & Plan (10/14/2022 2:06 PM EDT): Patient educated to avoid triggers I will refill his medications for him F/u with PCP Stage 3 chronic kidney disease 07/02/2020 1 05/23/2022 Hyperkalemia 07/02/2020 03/22/2023 Diabetic nephropathy associa alex with type 2 diabetes mellitus 07/02/2020 03/22/2023 Forgetfulness 06/30/2017 03/22/2023 Disease related peripheral neuropathy 02/10/2017 03/22/2023 Perforation of nasal septum 02/05/201503/04 Obesity 02/05/2015 03/22/2023 Nondependent opioid abuse in remission 5 03/22/2023 Mixed, or nondependent drug abuse, episodic 08/201403/22/2023 Hyperlipidemia associated wi th type 2 diabetes mellitus ([facility]) 02/05/2015 03/22/2023 Essential hypertension 02/05/2015 Assessment & Plan (05/22/2024 9:33 AM EST): -Stable; BP at goal of <130/80 mmHg -Continue carvedilol 12.5 mg two times daily Diabetic peripheral neuropat hy associated with type 2 diabetes mellitus 02/05/2015 03/22/2023 Depressive disorder 02/05/2015 03/22/2023 Chronic pain syndrome 02/05/2015 03/22/2023 Cardiomyopathy 02/05/2015 03/22/2023 Anxiety 02/05/2015 03/22/2023 Allergic rhinitis 02/05/2015 03/22/2023 Resolved Problems Problem Noted Date Diagnosed Date Resolved Date Acute kidney injury 07/02/2020 03/22/2023 10/11/19 Moderate asthma 02/05/2015 03/22/2023 10/11/2023 Encounters Date Type Department Care Team Description 05/23/2024 2:40 PM EST Office Visit [facility] [address] [place] [id number] Mariah Rios MD Acute pain of both knees (Primary Dx); Chronic bilateral low back pain without sciatica; Neck pain; Traumatic injury of head, initial encounter 05/23/2024 Travel 05/22/[address] [address] Gemini Messer NP Prior Authorization (CGM) 05/16/2024 Orders Only [address] [address] Gemini Messer NP 05/16/[address] [address] Gemini Messer NP 05/16/[address] [address] Gemini Messer NP Moderate persistent asthma without complication 05/10/[address] [address] Jazmine Keller RN 05/08/2024 3:00 PM EST Office Visit [facility] [address] [place] [address] Les Felder DMD 05/06/2024 1:45 PM EST Office Visit [address] [address] Gemini Messer NP Screening for colon cancer (Primary Dx); Type 2 diabetes mellitus with hyperglycemia, with long-term current use of insulin (CMS/HCC); Osteomyelitis of right foot, unspecified type (CMS/HCC) 05/06/2024 Orders Only [address] [address] Myrtle Padgett MD Hyperlipidemia associated with type 2 diabetes mellitus (CMS/HCC) (CMS/HCC) (Primary Dx) 05/06/[address] [address] Ananth Villagran MD 05/06/2024 Travel 05/02/[address] [address] Emma Brown MA chartprep 05/02/[address] [address] Suzy Escobar MD Results; ER Expect 04/23/[address] [place] [address] Gemini Messer NP Type 2 diabetes mellitus treated with insulin (CMS/HCC) 04/23/2024 Refill [facility] [address] [place] [address] Ruthie Schwarz, ASSISTANCE COORDINATOR 04/18/2024 Refill [facility] [address] [place] [address] Brielle Alas MD 04/18/2024 Refill [facility] [address] [place] [address] Ruthie Schwarz, ASSISTANCE COORDINATOR 04/17/2024 Telephone [facility] [address] [place] [address] Gemini Messer NP Lab Orders 04/05/2024 1:00 PM EST Office Visit [facility] [address] [place] [address] Gemini Messer NP Ulcer of both feet, unspecified ulcer stage (CMS/HCC) (Primary Dx); Encounter to establish care; Hyperlipidemia associated with type 2 diabetes mellitus (CMS/HCC) (CMS/[facility]); Type 2 diabetes mellitus with hyperglycemia, with long-term current use of insulin (CMS/[facility]); Essential hypertension 04/05/2024 Travel 03/27/2024 Refill [facility] [address] [place] [address] Gemini Messer NP Moderate persistent asthma without complication 03/26/2024 Telephone [facility] [address] [place] [address] Suzy Escobar MD Results 03/25/2024 1:00 PM EST Office Visit [facility] [address] [place] [address] Cynthia Alfred 03/25/2024 Telephone [facility] [address] [place] [address] Emma Brown MA chartprep 03/22/2024 Refill [facility] [address] [place] [address] Gemini Messer NP 03/18/2024 Refill [facility] [address] [place] [address] Ruthie Schwarz, ASSISTANCE COORDINATOR Depressive disorder 03/14/2024 Orders Only [facility] [address] [place] [address] Suzy Escobar MD 03/14/2024 Refill [facility] [address] [place] [address] Ruthie Schwarz, ASSISTANCE COORDINATOR Pain 02/26/2024 Refill [facility] [address] [place] [address] Ruthie Schwarz, ASSISTANCE COORDINATOR Type 2 diabetes mellitus treated with insulin ([facility]) from Last 3 Months Immunizations Name Administration Dates Next Due Influenza injectable quadriv alent IIV4 with preservative 02/21/2018,02/10/2017,01/13/2015 Influenza injectable quadriv alent preservative free 02/14/2023,03/16/2021,01/09/2020,12/25,01/01/2016 Influenza, IIV3, injectable 12/23/2015, 4 Influenza, Split (incl. misti fied surface antigen) 02/04/2013,02/17/2012 Influenza, injectable, quadr ivalent, preservative free, pediatric 12/23/2015 Pneumococcal Polysaccharide PPSV23 08/13/2013 Tdap 08/13/2013 Zoster, Recombinant 04/04/2019,01/29/2019 Family History Medical History Relation Name Comments Diabetes Father Heart attack Father Alzheimer's disease Mother Hypertension Mother Relation Name Status Comments Father Mother Social History Tobacco Use Types Packs/Day Years Used Date Smoking Tobacco: Never Passive Smoke Exposure: Past Smokeless Tobacco: Never Tobacco Cessation:Counseling Given: Not Answered Alcohol Use Standard Drinks/Week Comments Not Currently [...] Orientation Straight 01/31/2022 10 :22 AM EDT Last Filed Vital Signs Vital Sign Reading Time Taken Comments Blood Pressure 124/73 05/23/2024 3:00 PM EST Pulse 74 05/23/2024 3:00 PM EST Temperature 36.9 ??C (98.4 ??F) 05/23/2024 3:00 PM ES T Respiratory Rate 16 05/23/2024 3:00 PM EST Oxygen Saturation 96% 05/23/2024 3:00 PM EST Inhaled Oxygen Concentration - - Weight 106 kg (234 lb) 05/23/2024 3:00 PM EST Height 182.9 cm (6') 04/05/2024 1:06 PM EST Body Mass Index 31.74 04/05/2024 1:06 PM EST Plan of Treatment Upcoming Encounters Date Type Department Care Team (Late st Contact Info) Description 06/03/2024 1:30 PM EST Office Visit [facility] [address] [place], [place] [phone] Gemini Messer, PLATFORM ENGINEER [address] [place] [address] 06/05/2024 2:00 PM EST Medication Management [facility] [address] [place] [address] Anila Faustin, PharmD [address] [place] [address] 06/19/2024 1:30 PM EDT Office Visit [facility] [address] [place], [place] [phone] Les Felder, DMD [address] [place], [place] [phone] Health Maintenance Due Date Last Done Comments CT Colonography 1965 Colonoscopy 1965 Colorectal Cancer Screening 1965 Dental Prophylaxis 1965 FIT DNA/Cologuard 1965 FIT 1965 FOBT 1965 HIV Screening 1965 Sigmoidoscopy 1965 Eye Exam 1974 Hepatitis C Screening 1982 Hepatitis A Vaccines (1 of 2 - Risk 2-dose series) 07/30/1983 Hepatitis B Vaccines (1 of 3 - 19+ 3-dose series) 07/30/1983 Pneumococcal Vaccine: 50+ Years (2 of 2 - PCV) 08/13/2014 08/13/2013 Dental X-Ray: Bitewings 09/11/2015 09/10/19 15, 04/15/2014, 12/24/2013, Additional history exists DTaP/Tdap/Td Vaccines (2 - Td or Tdap) 08/14/2023 08/13/2013 COVID-19 Vaccine ( season) 2023 06/17/2021, 10/13/2020, 08/27/2020 Influenza Vaccine (#1) 2023 3, 03/16/2021, 01/09/2020, Additional history exists Diabetes: Hemoglobin A1C 08/03/20242 025, 04/05/2024, 06/14/2021 Dental Oral Exam 09/24/2024 03/25/2024, 12/2014, 12/24/2013 Depression Monitoring (PHQ-9) 10/03/2024 04/05/2024, 04/05/2024 Alcohol/Substance Use Screening 04/05/2025 04/05/2024 Depression Screening 04/05/2025 04/05/2024, 04/05/19 Diabetes: Foot Exam 04/05/2025 04/05/2024, 04/05/2024, 04/05/2024, Additional history exists Lipid Panel 04/05/2025 04/05/2024, 06/14/2021 SDOH Screening 04/05/2025 04/05/2024 Tobacco Screening 05/08/2025 05/08/2024 Dental X-Ray: Full Mouth 03/26/2027 024, 12/24/2013, 12/24/2013 RSV Patients and Patients Aged 60 years or older (1 - 1-dose 75+ series) 07/30/2039 Zoster Vaccines Completed 04/04/2019, 01/29/2019 HIB Vaccines Aged Out No longer eligi ble based on patient's age to complete this topic HPV Vaccines Aged Out No longer eligi ble based on patient's age to complete this topic IPV Vaccines Aged Out No longer eligi ble based on patient's age to complete this topic Meningococcal Vaccine Aged Out No dot evens eligible based on patient's age to complete this topic RSV under 20 months Aged Out No longe r eligible based on patient's age to complete this topic Rotavirus Vaccines Aged Out No longer eligible based on patient's age to complete this topic Procedures Procedure Name Priority Date/Time Associated Diagnosis Comments XR KNEE 4+ VIEWS RIGHT Routine 05/23/2024 3:44 PM EST Acute pain of both knees XR KNEE 4+ VIEWS LEFT Routine 05/23/2024 3:44 PM EST Acute pain of both knees CONSULTATION - DIAGNOSTIC SERVICE PROVIDED BY DENTIST OR PHYSICIAN OTHER THAN REQUESTING DENTIST OR PHYSICIAN Routine 05/08/2024 3:00 PM EST POCT GLUCOSE Routine 05/06/2024 3:07 PM EST Type 2 diabetes mellitus with hyperglycemia, with long-term current use of insulin (CMS/HCC) POCT URINALYSIS DIPSTICK Routine 05/06/2024 2:40 PM EST Type 2 diabetes mellitus with hyperglycemia, with long-term current use of insulin (CMS/HCC) POCT GLYCATED HEMOGLOBIN, TOTAL Routine 05/06/2024 1:39 PM EST Type 2 diabetes mellitus with hyperglycemia, with long-term current use of insulin (CMS/HCC) POCT GLUCOSE Routine 05/06/2024 1:37 PM EST Type 2 diabetes mellitus with hyperglycemia, with long-term current use of insulin (CMS/HCC) MR FOOT W AND WO CONTRAST RIGHT Urgent 04/17/2024 1:00 PM EST Ulcer of both feet, unspecified ulcer stage (CMS/HCC) MR FOOT W AND WO CONTRAST LEFT Urgent 04/17/2024 1:00 PM EST Ulcer of both feet, unspecified ulcer stage (CMS/HCC) LIPID PANEL, STANDARD Routine 04/05/2024 2:00 PM EST Type 2 diabetes mellitus with hyperglycemia, with long-term current use of insulin (CMS/HCC) ALBUMIN, RANDOM URINE W/CREATININE Routine 04/05/2024 2:00 PM EST Type 2 diabetes mellitus with hyperglycemia, with long-term current use of insulin (CMS/HCC) BASIC METABOLIC PANEL Routine 04/05/2024 2:00 PM EST Type 2 diabetes mellitus with hyperglycemia, with long-term current use of insulin (CMS/HCC) CBC WITH AUTO DIFFERENTIAL Routine 04/05/2024 2:00 PM EST Ulcer of both feet, unspecified ulcer stage (CMS/HCC) POCT GLYCATED HEMOGLOBIN, TOTAL Routine 04/05/2024 1:11 PM EST Hyperlipidemia associated with type 2 diabetes mellitus (CMS/HCC) (CMS/HCC) POCT GLUCOSE Routine 04/05/2024 1:08 PM EST Hyperlipidemia associated with type 2 diabetes mellitus (CMS/HCC) (CMS/HCC) PERIODIC ORAL EVALUATION - ESTABLISHED PATIENT Routine 03/25/2024 1:00 PM EST ORAL HYGIENE INSTRUCTIONS Routine 03/25/2024 1:00 PM EST PANORAMIC RADIOGRAPHIC IMAGE Routine 03/25/2024 1:00 PM EST XR FOOT 3+ VIEWS RIGHT Routine 03/25/2024 12:09 PM EST Ulcer of both feet, unspecified ulcer stage (CMS/HCC) XR FOOT 3+ VIEWS LEFT Routine 03/25/2024 12:09 PM EST Ulcer of both feet, unspecified ulcer stage (CMS/HCC) 23 EXTRACTION Routine 03/25/2024 12:00 AM EST 24 EXTRACTION Routine 03/25/2024 12:00 AM EST 25 EXTRACTION Routine 03/25/2024 12:00 AM EST 26 EXTRACTION Routine 03/25/2024 12:00 AM EST 27 EXTRACTION Routine 03/25/2024 12:00 AM EST 28 EXTRACTION Routine 03/25/2024 12:00 AM EST 29 EXTRACTION Routine 03/25/2024 12:00 AM EST 30 EXTRACTION Routine 03/25/2024 12:00 AM EST 22 EXTRACTION Routine 03/25/2024 12:00 AM EST 21 EXTRACTION Routine 03/25/2024 12:00 AM EST 20 EXTRACTION Routine 03/25/2024 12:00 AM EST 18 EXTRACTION Routine 03/25/2024 12:00 AM EST 13 EXTRACTION Routine 03/25/2024 12:00 AM EST 12 EXTRACTION Routine 03/25/2024 12:00 AM EST 11 EXTRACTION Routine 03/25/2024 12:00 AM EST 10 EXTRACTION Routine 03/25/2024 12:00 AM EST 9 EXTRACTION Routine 03/25/2024 12:00 AM EST 4 EXTRACTION Routine 03/25/2024 12:00 AM EST 2 EXTRACTION Routine 03/25/2024 12:00 AM EST XR FOOT 3+ VIEWS LEFT Routine 03/14/2024 1:50 PM EST XR FOOT 3+ VIEWS RIGHT Routine 03/14/2024 1:50 PM EST BITEWINGS - 4 RADIOGRAPHIC IMAGES Routine 09/09/2014 12:00 AM EDT from Last 3 Months or Most Recently Relevant to Health Maintenance Results * XR Knee 4+ Views Right (05/23/2024 3:44 PM EST) Anatomical Region Laterality Modality Lower Extremities, Knee Right Radiogra phic Imaging 05/23/2024 3:44 PM EST Narrative 05/23/2024 4:36 PM EST ?[facility] ?[address] ?[place] [address] ?XRay Report ? Signed ? Patient: Mckinley Berry ?MR#: [id number] ?? 2031 ? : 1965 ?Acct:[id number] ? Age/Sex: 58 / M ?ADM Date: 05/23/24 ? Loc: HO.HHCX ? Attending Dr: Mariah Mendoza MD ? Ordering Physician: Mariah Rios MD ?? Date of Service: 05/23/24 ?? Procedure(s): XR knee RT 4V ?? Accession Number(s): [id number] ? cc: Mariah Rios MD ? EXAMINATION: [...] DD/ 1544 ? TD/TT: 05/23/24 1616 ? Standards Analyst: ? Procedure Note Donotuseinterpreter, Image - 05/23/[address] [address] XRay Report Signed Patient: Mckinley Berry [facility]#: [id number] 2031 : 1965Acct:[id number] Age/Sex: 58 / MADM Date: 05/23/24 Loc: HO.HHCX Attending Dr: Mariah Mendoza MD Ordering Physician: Mariah Rios MD Date of Service: 05/23/24 Procedure(s): XR knee RT 4V Accession Number(s): [id number] cc: Mariah Rios MD EXAMINATION: XR KNEE, [...] Chandler York MD 05/23/2024 04:33 PM EST Dictated By: Chandler York MD Signed By: <Electronically signed by Chandler York MD in OV> 05/23/24 1633 DD/ 1544 TD/TT: 05/23/24 1616 Standards Analyst: us Mariah Mendoza MD IMG XR PROCEDURES Fin al Result * XR Knee 4+ Views Left (05/23/2024 3:44 PM EST) Anatomical Region Laterality Modality Lower Extremities, Knee Left Radiogra phic Imaging 05/23/2024 3:44 PM EST Narrative 05/23/2024 4:35 PM EST ?[place] [facility] ?[address] ?[place] [address] ?XRay Report ? Signed ? Patient: Vandal,Mckinley S ?MR#: [id number] ?? 2032 ? : 1965 ?Acct:[id number] ? Age/Sex: 58 / M ?ADM Date: 05/23/24 ? Loc: HO.HHCX ? Attending Dr: Mariah Mendoza MD ? Ordering Physician: Mariah Rios MD ?? Date of Service: 05/23/24 ?? Procedure(s): XR knee LT 4V ?? Accession Number(s): [id number] ? cc: Mariah Rios MD ? EXAMINATION: [...] DD/ 1544 ? TD/TT: 05/23/24 1616 ? Standards Analyst: ? Procedure Note Yash Castro - 05/23/[address] [address] XRay Report Signed Patient: Mckinley Berry SMR#: [id number] 2032 : 1965Acct:[id number] Age/Sex: 58 / MADM Date: 05/23/24 Loc: HO.HHCX Attending Dr: Mariah Mendoza MD Ordering Physician: Mariah Rios MD Date of Service: 05/23/24 Procedure(s): XR knee LT 4V Accession Number(s): [id number] cc: Mariah Rios MD EXAMINATION: XR KNEE, [...] 05/23/24 1632 DD/ 1544 TD/TT: 05/23/24 1616 Standards Analyst: Mariah Mendoza MD IMG XR PROCEDURES Fin al Result * (ABNORMAL) POCT Glucose (05/06/2024 3:07 PM EST) Only the most recent of3 resultswithin the time period is included. Glucose Blood, POC 358(A) 60 - 200 mg/dL QC Media Lot # [id number] Lot# Expiration Date Blood Capillary blood specimen / Unknown 05/06/2024 3:07 PM EST Gemini Messer NP POINT OF CARE TEST [...] Expiration Date Urine 05/06/2024 2:40 PM EST us Gemini Messer PLATFORM ENGINEER POINT OF CARE TEST ENTER/EDIT O RDERABLES Final Result * (ABNORMAL) POCT HGB A1C (05/06/2024 1:39 PM EST) Only the most recent of2 resultswithin the time period is included. Hemoglobin A1C 10.9(A) 4.0 - 6.0 % QC Media Lot # [id number] Lot# Expiration Date ,260 Blood 05/06/2024 1:39 PM EST us Gemini Messer PLATFORM ENGINEER POINT OF CARE TEST ENTER/EDIT O RDERABLES Final Result * MR Foot w and w/o Contrast Left (04/17/2024 1:00 PM EST) Anatomical Region Laterality Modality Lower Extremities, Foot Left Magnetic Resonance 04/17/2024 1:00 PM EST Narrative 04/17/2024 3:16 PM EST ? [facility] ?[address] ?[place] [address] ? Magnetic Resonance Report ? Signed ? Patient: Mckinley Berry ?MR#: [id number] ?? 2032 ? : 1965 ?Acct:[id number] ? Age/Sex: 58 / M ?ADM Date: 04/17/24 ? Loc: HO.MRI ? Attending Rios Messer ? Ordering Physician: Gemini Messer ?? Date of Service: 04/17/24 ?? Procedure(s): MR foot LT wo/w con ?? Accession Number(s): [id number] ? cc: Gemini Messer ? EXAMINATION: MR FOOT WITHOUT THEN WITH IV CONTRAST LEFT ? HISTORY: Ulceration. Plain films suggestive of osteomyelitis.. ? TECHNIQUE: ??Sagittal T1 and STIR, axial T1 and STIR, and coronal STIR ?? images of the left foot were obtained. Subsequently, axial and sagittal ?? fat-suppressed T1-weighted images were obtained after the intravenous ?? administration of 10 mL Gadavist. ? COMPARISON: Correlation is made to plain films of the left foot dated ?? 03/24/2024. ? FINDINGS: ? The examination is limited by patient motion. There is destruction of ?? the middle and distal phalanges of the 2nd toe. There is also bone ?? marrow edema and enhancement involving the distal half of the proximal ?? phalanx. These findings are consistent with osteomyelitis. There is ?? diffuse soft tissue swelling of the 2nd toe. No loculated fluid ?? collection is seen. ? There is severe osteoarthritis of the 2nd tarsometatarsal joint with ?? cartilage loss, subchondral marrow edema, and subchondral cyst ?? formation. Bone marrow signal intensity is otherwise normal. ? No tendon or ligamentous abnormality is seen. ? MR/MR foot LT wo/w con ?? IMPRESSION: ? 1. Findings consistent with osteomyelitis involving the middle and ?? distal phalanges of the 2nd toe, as well as the distal half of the ?? proximal phalanx. ? 2. 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 ? Electronically signed by: ??Milan Vieira MD ??04/17/2024 03:13 PM EST ? Dictated By: ?Milan Vieira MD ? Signed By: ?<Electronically signed by Milan Vieira MD in OV> ?04/17/24 1513 ? DD/ 1300 ? TD/TT: 04/17/24 1425 ? Standards Analyst: ? Procedure Note Gloria, Yash - 04/17/[address] [address] Magnetic Resonance Report Signed Patient: Mckinley Berry [facility]#: [id number] 2032 : 1965Acct:[id number] Age/Sex: 58 / MADM Date: 04/17/24 Loc: HO.MRI Attending Dr: Gemini Messer Ordering Physician: Gemini Messer Date of Service: 04/17/24 Procedure(s): MR sewell LT wo/w con Accession Number(s): [id number] cc: Gemini Messer EXAMINATION: MR FOOT WITHOUT THEN WITH IV CONTRAST LEFT HISTORY: Ulceration. Plain films suggestive of osteomyelitis.. TECHNIQUE: Sagittal T1 and STIR, axial T1 and STIR, and coronal STIR images of the left foot were obtained. Subsequently, axial and sagittal fat-suppressed T1-weighted images were obtained after the intravenous administration of 10 mL Gadavist. COMPARISON: Correlation is made to plain films of the left foot dated 03/24/2024. FINDINGS: The examination is limited by patient motion. There is destruction of the middle and distal phalanges of the 2nd toe. There is also bone marrow edema and enhancement involving the distal half of the proximal phalanx. These findings are consistent with osteomyelitis. There is diffuse soft tissue swelling of the 2nd toe. No loculated fluid collection is seen. There is severe osteoarthritis of the 2nd tarsometatarsal joint with cartilage loss, subchondral marrow edema, and subchondral cyst formation. Bone marrow signal intensity is otherwise normal. No tendon or ligamentous abnormality is seen. MR/MR foot LT wo/w con IMPRESSION: 1. Findings consistent with osteomyelitis involving the middle and distal phalanges of the 2nd toe, as well as the distal half of the proximal phalanx. 2. 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 Electronically signed by: Milan Vieira MD 04/17/2024 03:13 PM EST Dictated By: Milan Vieira MD Signed By: <Electronically signed by Milan Vieira MD in OV> 04/17/24 1513 DD/ 1300 TD/TT: 04/17/24 1425 Standards Analyst: Gemini Messer NP IMG MRI PROCEDURES Final Result * MR Foot w/ and w/o Contrast Right (04/17/2024 1:00 PM EST) Anatomical Region Laterality Modality Lower Extremities, Foot Right Magnetic Resonance 04/17/2024 1:00 PM EST Narrative 04/17/2024 3:05 PM EST ? [facility] ?[address] ?[place] [address] ? Magnetic Resonance Report ? Signed ? Patient: Vandal,Mckinley S ?MR#: [id number] ?? 2032 ? : 1965 ?Acct:[id number] ? Age/Sex: 58 / M ?ADM Date: 04/17/24 ? Loc: HO.MRI ? Attending Dr: Gemini Messer ? Ordering Physician: Gemini Messer ?? Date of Service: 04/17/24 ?? Procedure(s): MR foot RT wo/w con ?? Accession Number(s): [id number] ? cc: Gemini Messer ? EXAMINATION: MR FOOT WITHOUT THEN WITH IV CONTRAST RIGHT ? HISTORY: Right foot ulcer with plain films suspicious for ?? osteomyelitis.. ? TECHNIQUE: ??Sagittal T1 and STIR, axial T1 and STIR, and coronal STIR ?? images of the right forefoot were obtained. Subsequently, axial and ?? sagittal fat-suppressed T1-weighted images were obtained after the ?? intravenous administration of 10 mL Gadavist. ? COMPARISON: Correlation is made to plain films of the right foot dated ?? 03/25/2024. ? FINDINGS: ? There is destruction of the distal phalanx of the 2nd toe which ?? demonstrates marrow edema. There is also bone marrow edema involving ?? the middle phalanx, with associated contrast enhancement. No gross ?? destruction of the middle phalanx is seen. ? There is severe degenerative change involving the joint space between ?? the middle cuneiform and the 2nd metatarsal, with cartilage loss, ?? subchondral cyst formation, and subchondral marrow changes. There are ?? also degenerative changes involving the 1st and 2nd MTP joints, with ?? cartilage loss and subchondral cyst formation. Bone marrow signal ?? intensity is otherwise normal. ? No tendon or ligamentous abnormality is seen. There is no loculated ?? fluid collection. ? MR/MR foot RT wo/w con ?? IMPRESSION: ? 1. Findings consistent with osteomyelitis involving the middle and ?? distal phalanges of the 2nd toe. ? 2. Degenerative changes as described. ? Electronically signed by: ??Milan Vieira MD ??04/17/2024 03:03 PM EST ? Dictated By: ?Milan Vieira MD ? Signed By: ?<Electronically signed by Milan Vieira MD in OV> ?04/17/24 1503 ? DD/ 1300 ? TD/TT: 04/17/24 1425 ? Standards Analyst: ? Procedure Note Donshellyinterpreter, Image - 04/17/2024 [place] [address] Magnetic Resonance Report Signed Patient: Mckinley Berry [facility]#: [id number] 2031 : 1965Acct:[id number] Age/Sex: 58 / MADM Date: 04/17/24 Loc: HO.MRI Attending Dr: Gemini Messer Ordering Physician: Gemini Messer Date of Service: 04/17/24 Procedure(s): MR foot RT wo/w con Accession Number(s): [id number] cc: Gemini Messer EXAMINATION: MR FOOT WITHOUT THEN WITH IV CONTRAST RIGHT HISTORY: Right foot ulcer with plain films suspicious for osteomyelitis.. TECHNIQUE: Sagittal T1 and STIR, axial T1 and STIR, and coronal STIR images of the right forefoot were obtained. Subsequently, axial and sagittal fat-suppressed T1-weighted images were obtained after the intravenous administration of 10 mL Gadavist. COMPARISON: Correlation is made to plain films of the right foot dated 03/25/2024. FINDINGS: There is destruction of the distal phalanx of the 2nd toe which demonstrates marrow edema. There is also bone marrow edema involving the middle phalanx, with associated contrast enhancement. No gross destruction of the middle phalanx is seen. There is severe degenerative change involving the joint space between the middle cuneiform and the 2nd metatarsal, with cartilage loss, subchondral cyst formation, and subchondral marrow changes. There are also degenerative changes involving the 1st and 2nd MTP joints, with cartilage loss and subchondral cyst formation. Bone marrow signal intensity is otherwise normal. No tendon or ligamentous abnormality is seen. There is no loculated fluid collection. MR/MR foot RT wo/w con IMPRESSION: 1. Findings consistent with osteomyelitis involving the middle and distal phalanges of the 2nd toe. 2. Degenerative changes as described. Electronically signed by: Milan Vieira MD 04/17/2024 03:03 PM EST Dictated By: Milan Vieira MD Signed By: <Electronically signed by Milan Vieira MD in OV> 04/17/24 1503 DD/ 1300 TD/TT: 04/17/24 1425 Standards Analyst: us Gemini Messer NP IMG MRI PROCEDURES Final Result * Albumin, Random Urine W/Creatinine (04/05/2024 2:00 PM EST) Pathologist [facility] Creatinine, Urine 29.83 mg/dL [facility] Microalbumin Urine <5.0 mg/L [facility] Microalbum Creatinine Ratio Ur TNP <30 ug/mg cr [facility] Comment:Unable to calculate albumin/creatinine ratio due to lowmicroalbumin or creatinine result. Urine (Urine, Random) 04/05/2024 2:00 PM EST 04/05/2024 4:04 PM EST us Gemini Messer NP LAB URINE ORDERABLES Final Resu lt [facility] [address] [place] [phone] * (ABNORMAL) CBC auto differential (04/05/2024 2:00 PM EST) White Blood Count 6.9 4.8 - 10.8 X10*3/uL [facility] Red Blood Count 4.51(L) 4.60 - 5.80 X10*6/uL [facility] Hemoglobin 12.2(L) 14.0 - 18.0 g/dl [facility] Hematocrit 37.6(L) 42.0 - 52.0 % [facility] Mean Corpuscular Volume 83.4 80.0 - 98.0 fL [facility] Mean Corpuscular Hemoglobin 27.1 27.0 - 33.0 pg [facility] Mean Corpuscular HGB Conc 32.4 31.0 - 36.0 g/dl [facility] Red Cell Distribution Width 14.2 11.0 - 16.0 % [facility] Platelet Count 235 160 - 400 X10*3/uL [facility] Mean Platelet Volume 12.4 9.4 - 12.4 fL [facility] Neutrophils Percent Auto 64.0 45 - 73 % [facility] Imm Gran Pct Auto 0.4 0.0 - 0.4 % [facility] Lymphocytes Percent Auto 23.8 20 - 40 % [facility] Monocytes Percent Auto 8.6 2 - 11 % [facility] Eosinophils Percent Auto 2.5 0 - 4 % [facility] Basophils Percent Auto 0.7 0 - 2 % [facility] NRBC Pct Auto 0.0 0.0 - 0.2 /100WBC [facility] Neutrophils Absolute Auto 4.4 2.0 - 8.3 x10*3/uL [facility] Imm Gran Abs Auto 0.03 0.00 - 0.03 X10*3/uL [facility] Lymphocytes Absolute Auto 1.6 1.2 - 4.9 X10*3/uL [facility] Monocytes Absolute Auto 0.6 0.1 - 1.2 X10*3/uL [facility] Eosinophils Absolute Auto 0.2 0.0 - 0.4 X10*3/uL [facility] Basophils Absolute Auto 0.1 0.0 - 0.2 X10*3/uL [facility] NRBC Abs Auto 0.000 0.0 - 0.012 X10*3/uL [facility] Blood Venous blood specimen / Unknown 04/05/2024 2:00 PM EST 04/05/2024 4:08 PM EST Gemini Heath PLATFORM ENGINEER LAB BLOOD ORDERABLES Final Resu lt Performing Organization Address City/[facility]/ZIP Co de Phone Number [facility] [address] [place] [address] [phone] * (ABNORMAL) Lipid Panel, Standard (04/05/2024 2:00 PM EST) Triglycerides 214(H) <150 mg/dL [facility] Comment:Desirable Triglyceri de: less than 150 mg/dLBorderline High Triglyceride 150-199 mg/dLHigh Triglyceride: 200-499 mg/dLVery High Triglyceride: greater than or equal to 5OO mg/dL Cholesterol 175 <200 mg/dL [facility] Comment:Desirable Cholestero l: less than 200 mg/dLBorderline High Cholesterol: 200-239 mg/dLHigh Cholesterol: greater than 239 mg/dL LDL Cholesterol Calculated 92 <100 mg/dL [facility] Comment:Desirable LDL: less than 100 mg/dLNear Optimal/Above Optimal LDL: 110- 129 mg/dLBorderline High LDL: 130-159 mg/dLHigh LDL: 160-189 mg/dLVery High LDL: greater than or equal to 190 mg/dL HDL Cholesterol 41 >40 mg/dL [facility] Comment:Desirable HDL: great er than 40 mg/dL Note: This HDL assay may give artificially low results in patients with liver disease. Blood Venous blood specimen / Unknown 04/05/2024 2:00 PM EST 04/05/2024 4:08 PM EST Gemini Joe PLATFORM ENGINEER LAB BLOOD ORDERABLES Final Resu lt Performing Organization Address City/[facility]/ZIP Co de Phone Number [facility] [address] [place] [address] [phone] * (ABNORMAL) Basic Metabolic Panel (04/05/2024 2:00 PM EST) Sodium 132(L) 135 - 145 mmol/L [facility] Potassium 5.0 3.3 - 5.1 mmol/L [facility] Chloride 98 96 - 108 mmol/L [facility] Carbon Dioxide 29 22 - 29 mmol/L [facility] Anion Gap 10(L) 12 - 20 [facility] Urea Nitrogen (BUN) 21(H) 9 - 16 mg/dL [facility] Creatinine, Serum 1.20 0.5 - 1.4 mg/dL [facility] Estimated Glomerular Filt Rate >60 [facility] Comment:Chronic Kidney Disea se: Estimated GFR < 60 mL/min/1.65t3Uqpnsu Kidney Disease: Estimated GFR < 15 mL/min/1.73m2 Glucose 257(H) 60 - 115 mg/dL [facility] Calcium 9.5 8.4 - 10.2 mg/dL [facility] Blood Venous blood specimen / Unknown 04/05/2024 2:00 PM EST 04/05/2024 4:08 PM EST Gemini Messer PLATFORM ENGINEER LAB BLOOD ORDERABLES Final Resu lt [facility] [address] [place] [phone] * XR Foot 3+ Views Right (03/25/2024 12:09 PM EST) Only the most recent of2 resultswithin the time period is included. Anatomical Region Laterality Modality Lower Extremities, Foot Right Radiogra phic Imaging 03/25/2024 12:0 9 PM EST Narrative 03/25/2024 1:40 PM EST ?[facility] ?[address] ?[place] [address] ?XRay Report ? Signed ? Patient: Vandal,Mckinley S ?MR#: [id number] ?? 2032 ? : 1965 ?Acct:[id number] ? Age/Sex: 58 / M ?ADM Date: 12/23/24 ? Loc: HO.HHCX ? Attending Dr: Suzy Escobar MD ? Ordering Physician: Suzy Escobar MD ?? Date of Service: 03/25/24 ?? Procedure(s): XR foot RT min 3V ?? Accession Number(s): [id number] ? cc: Suzy Escobar MD ? EXAMINATION: ?? XR FOOT, BILATERAL ? CLINICAL INDICATION: ?? Ulcer of both feet, unspecified ulcer stage, history of osteomyelitis, ?? foot ulcers bilaterally. Patient states right foot is worse than right? COMPARISON: ?? CT left foot 08/10/2023. Left foot radiographs 08/09/2023 reports only. ?? Right foot radiographs 03/12/2015. ? TECHNIQUE: ?? 3 views of each foot. ? FINDINGS: ? RIGHT FOOT: Mild degenerative changes 1st metatarsophalangeal joint. ? Near-complete destruction of the distal phalanx of the right 2nd toe ?? with soft tissue swelling is new since 2015 exam. Irregularity along ?? the distal lateral aspect of the right 5th metatarsal may also be ?? related to a destructive process of indeterminate age and etiology is ?? new since 2015 exam. ? Moderate degenerative changes at the tarsometatarsal joints. Tiny ?? plantar and dorsal calcaneal spurs. ? LEFT FOOT: Soft tissue swelling at the 2nd toe. Second toe PIP joint ?? again demonstrates moderate degenerative changes. Redemonstration of a ?? cystic lucency at the base of the 2nd toe proximal phalanx. ? There has been progression of destructive process in the left 2nd toe ?? along the mid to distal aspect of the left 2nd middle phalanx with ?? residual bony focus distal to that, concerning for osteomyelitis in the ?? appropriate clinical setting. ? Small plantar calcaneal spur. ? XR/XR foot RT min 3V ?? IMPRESSION: ?? 1. Extensive destructive changes of the distal phalanx of the right 2nd ?? toe with soft tissue swelling, not appreciated on 2015 exam. ?? 2. Irregularity along the distal lateral aspect of the right 5th ?? metatarsal may also be related to a destructive process of ?? indeterminate age and etiology was not appreciated on 2015 exam. ?? 3. Progression of destructive process in the left 2nd toe along the mid ?? to distal aspect of the left 2nd middle phalanx with residual bony ?? focus distal to that, concerning for osteomyelitis in the appropriate ?? clinical setting. ? MRI could be considered for further evaluation. ? This study was presented today to March 25, 2024 for interpretation. ?? Stat results provided at this time as requested by referring provider. ? Electronically signed by: ??Nicki Cortés MD ??03/25/2024 01:37 PM EST ? Dictated By: ?Nicki Cortés MD ? Signed By: ?<Electronically signed by Nicki Cortés MD in OV> ? 03/25/247 ? DD/ 1209 ? TD/TT: 03/25/24 1214 ? Standards Analyst: ? Procedure Note Doningater, Image - 03/25/[address] [address] XRay Report Signed Patient: Mckinley Berry [facility]#: [id number] 2031 : 1965Acct:[id number] Age/Sex: 58 / MADM Date: 03/25/24 [facility] Attending Dr: Suzy Escobar MD Ordering Physician: Suzy Escobar MD Date of Service: 03/25/24 Procedure(s): XR foot RT min 3V Accession Number(s): [id number] cc: Suzy Escobar MD EXAMINATION: XR FOOT, BILATERAL CLINICAL INDICATION: Ulcer of both feet, unspecified ulcer stage, history of osteomyelitis, foot ulcers bilaterally. Patient states right foot is worse than right? COMPARISON: CT left foot 08/10/2023. Left foot radiographs 08/09/2023 reports only. Right foot radiographs 03/12/2015. TECHNIQUE: 3 views of each foot. FINDINGS: RIGHT FOOT: Mild degenerative changes 1st metatarsophalangeal joint. Near-complete destruction of the distal phalanx of the right 2nd toe with soft tissue swelling is new since 2015 exam. Irregularity along the distal lateral aspect of the right 5th metatarsal may also be related to a destructive process of indeterminate age and etiology is new since 2015 exam. Moderate degenerative changes at the tarsometatarsal joints. Tiny plantar and dorsal calcaneal spurs. LEFT FOOT: Soft tissue swelling at the 2nd toe. Second toe PIP joint again demonstrates moderate degenerative changes. Redemonstration of a cystic lucency at the base of the 2nd toe proximal phalanx. There has been progression of destructive process in the left 2nd toe along the mid to distal aspect of the left 2nd middle phalanx with residual bony focus distal to that, concerning for osteomyelitis in the appropriate clinical setting. Small plantar calcaneal spur. XR/XR foot RT min 3V IMPRESSION: 1. Extensive destructive changes of the distal phalanx of the right 2nd toe with soft tissue swelling, not appreciated on 2015 exam. 2. Irregularity along the distal lateral aspect of the right 5th metatarsal may also be related to a destructive process of indeterminate age and etiology was not appreciated on 2015 exam. 3. Progression of destructive process in the left 2nd toe along the mid to distal aspect of the left 2nd middle phalanx with residual bony focus distal to that, concerning for osteomyelitis in the appropriate clinical setting. MRI could be considered for further evaluation. This study was presented today to March 25, 2024 for interpretation. Stat results provided at this time as requested by referring provider. Electronically signed by: Nicki Cortés MD 03/25/2024 01:37 PM EST Dictated By: Nicki Cortés MD Signed By: <Electronically signed by Nicki Cortés MD in OV> 03/25/24 1337 DD/ 1209 TD/TT: 03/25/24 1214 Standards Analyst: us Suzy Escobar MD IMG XR PROCEDURES Final Re sult * XR Foot 3+ Views Left (03/25/2024 12:09 PM EST) Only the most recent of2 resultswithin the time period is included. Anatomical Region Laterality Modality Lower Extremities, Foot Left Radiogra [facility] 03/25/2024 12:0 9 PM EST Narrative 03/25/2024 1:40 PM EST ?[facility] ?[address] ?[place] [address] ?XRay Report ? Signed ? Patient: Vandal,Mckinley S ?MR#: [id number] ?? 2032 ? : 1965 ?Acct:[id number] ? Age/Sex: 58 / M ?ADM Date: 12/23/24 ? Loc: HO.HHCX ? Attending Dr: Suzy Escobar MD ? Ordering Physician: Suzy Escobar MD ?? Date of Service: 03/25/24 ?? Procedure(s): XR foot LT min 3V ?? Accession Number(s): [id number] ? cc: Suzy Escobar MD ? EXAMINATION: ?? XR FOOT, BILATERAL ? CLINICAL INDICATION: ?? Ulcer of both feet, unspecified ulcer stage, history of osteomyelitis, ?? foot ulcers bilaterally. Patient states right foot is worse than right? COMPARISON: ?? CT left foot 08/10/2023. Left foot radiographs 08/09/2023 reports only. ?? Right foot radiographs 03/12/2015. ? TECHNIQUE: ?? 3 views of each foot. ? FINDINGS: ? RIGHT FOOT: Mild degenerative changes 1st metatarsophalangeal joint. ? Near-complete destruction of the distal phalanx of the right 2nd toe ?? with soft tissue swelling is new since 2015 exam. Irregularity along ?? the distal lateral aspect of the right 5th metatarsal may also be ?? related to a destructive process of indeterminate age and etiology is ?? new since 2015 exam. ? Moderate degenerative changes at the tarsometatarsal joints. Tiny ?? plantar and dorsal calcaneal spurs. ? LEFT FOOT: Soft tissue swelling at the 2nd toe. Second toe PIP joint ?? again demonstrates moderate degenerative changes. Redemonstration of a ?? cystic lucency at the base of the 2nd toe proximal phalanx. ? There has been progression of destructive process in the left 2nd toe ?? along the mid to distal aspect of the left 2nd middle phalanx with ?? residual bony focus distal to that, concerning for osteomyelitis in the ?? appropriate clinical setting. ? Small plantar calcaneal spur. ? XR/XR foot LT min 3V ?? IMPRESSION: ?? 1. Extensive destructive changes of the distal phalanx of the right 2nd ?? toe with soft tissue swelling, not appreciated on 2015 exam. ?? 2. Irregularity along the distal lateral aspect of the right 5th ?? metatarsal may also be related to a destructive process of ?? indeterminate age and etiology was not appreciated on 2015 exam. ?? 3. Progression of destructive process in the left 2nd toe along the mid ?? to distal aspect of the left 2nd middle phalanx with residual bony ?? focus distal to that, concerning for osteomyelitis in the appropriate ?? clinical setting. ? MRI could be considered for further evaluation. ? This study was presented today to March 25, 2024 for interpretation. ?? Stat results provided at this time as requested by referring provider. ? Electronically signed by: ??Nicki Cortés MD ??03/25/2024 01:37 PM EST ?? RP ? Dictated By: ?Nicki Cortés MD ? Signed By: ?<Electronically signed by Nicki Cortés MD in OV> ? 03/25/24 1337 ? DD/ 1209 ? TD/TT: 03/25/24 1214 ? Standards Analyst: ? Procedure Note Gloria, Image - 03/25/[address] [address] XRay Report Signed Patient: Mckinley Berry [facility]#: [id number] 2031 : 1965Acct:[id number] Age/Sex: 58 / MADM Date: 03/25/24 Loc: HO.HHCX Attending Dr: Suzy Escobar MD Ordering Physician: Suzy Escobar MD Date of Service: 03/25/24 Procedure(s): XR foot LT min 3V Accession Number(s): [id number] cc: Suzy Escobar MD EXAMINATION: XR FOOT, BILATERAL CLINICAL INDICATION: Ulcer of both feet, unspecified ulcer stage, history of osteomyelitis, foot ulcers bilaterally. Patient states right foot is worse than right? COMPARISON: CT left foot 08/10/2023. Left foot radiographs 08/09/2023 reports only. Right foot radiographs 03/12/2015. TECHNIQUE: 3 views of each foot. FINDINGS: RIGHT FOOT: Mild degenerative changes 1st metatarsophalangeal joint. Near-complete destruction of the distal phalanx of the right 2nd toe with soft tissue swelling is new since 2015 exam. Irregularity along the distal lateral aspect of the right 5th metatarsal may also be related to a destructive process of indeterminate age and etiology is new since 2015 exam. Moderate degenerative changes at the tarsometatarsal joints. Tiny plantar and dorsal calcaneal spurs. LEFT FOOT: Soft tissue swelling at the 2nd toe. Second toe PIP joint again demonstrates moderate degenerative changes. Redemonstration of a cystic lucency at the base of the 2nd toe proximal phalanx. There has been progression of destructive process in the left 2nd toe along the mid to distal aspect of the left 2nd middle phalanx with residual bony focus distal to that, concerning for osteomyelitis in the appropriate clinical setting. Small plantar calcaneal spur. XR/XR foot LT min 3V IMPRESSION: 1. Extensive destructive changes of the distal phalanx of the right 2nd toe with soft tissue swelling, not appreciated on 2015 exam. 2. Irregularity along the distal lateral aspect of the right 5th metatarsal may also be related to a destructive process of indeterminate age and etiology was not appreciated on 2015 exam. 3. Progression of destructive process in the left 2nd toe along the mid to distal aspect of the left 2nd middle phalanx with residual bony focus distal to that, concerning for osteomyelitis in the appropriate clinical setting. MRI could be considered for further evaluation. This study was presented today to March 25, 2024 for interpretation. Stat results provided at this time as requested by referring provider. Electronically signed by: Nicki Cortés MD 03/25/2024 01:37 PM [facility] Dictated By: Nicki Cortés MD Signed By: <Electronically signed by Nicki Cortés MD in OV> 03/25/24 1337 DD/ 1209 TD/TT: 03/25/24 1214 Standards Analyst: Suzy Escobar MD IMG XR PROCEDURES Final Re sult from Last 3 Months Insurance [facility] Care Teams Division Superintendent Relationship Specialty Start Date End Date Gemini Messer NP [address] [place] [address] PCP - General Family Medicine 02/08/24
--- OUTSIDE RECORDS SUMMARY | 2024-05-23 16:40 | XMS_ITS | Encounter Summary ---
Author Organization [employer] Address [address] [place] [address] 7t [place] [address] Care Team Providers Care Radio/Tv Technician Name Role Phone Gemini Messer NP Primary Care Provider [phone] Reason for Referral * Consultation (Routine) - Authorized Specialty Diagnoses / Procedures Referred By Contac t Referred To Contact Pharmacy Diagnoses Hyperlipidemia associated with type 2 diabetes mellitus (CMS/HCC) (CMS/HCC) Myrtle Padgett MD [address] [place] [address] Phone: tel: fax: Referral ID Status Reason Start Date Expiration Date Visits Requested Visits Authorized [id number] Authorized Consult and Treat 05/06/2024 05/06/2025 6 6 Encounter Details Date Type Department Care Team ([facility] st Contact Info) Description 05/06/2024 Orders Only [facility] [address] [place], [place] [phone] Myrtle Padgett MD [address] [place], [place] [phone] Hyperlipidemia associated with type 2 diabetes mellitus (CMS/HCC) (CMS/HCC) (Primary Dx) Social History Tobacco Use Types Packs/Day Years [...] Description 06/03/2024 1:30 PM EST Office Visit [facility] [address] [place] [address] Gemini Messer NP [address] [place] [address] 06/05/2024 2:00 PM EST Medication Management [facility] [address] [place] [address] Anila Faustin, PharmD [address] [place] [address] 06/19/2024 1:30 PM EDT Office Visit [facility] ADULT DENTAL [address] [place] [address] Les Felder, FRANCHESCA [address] [place] [address] Scheduled Referrals Name Type Priority Associated Diagnoses Orde r Schedule Referral to Pharmacy CDTM Outpatient Referral Routine Hyperlipidemia associated with type 2 diabetes mellitus (CMS/HCC) (CMS/HCC) Ordered: 05/06/2024 documented as of this encounter Visit Diagnoses Diagnosis Hyperlipidemia associated with type 2 diabetes mellitus (CMS/HCC) (CMS/HCC)- Primary documented in this encounter Additional Health Concerns Assessment Noted Time PHQ-9 Depression Total Score: 11 025 1:12 PM EST documented as of this encounter Care Teams Radio/Tv Technician Relationship Specialty Start Date End Date Gemini Messer NP [address] [place] [address] PCP - General Family Medicine 02/08/24 documented as of this encounter
--- OUTSIDE RECORDS SUMMARY | 2024-05-23 16:40 | XMS_ITS | Encounter Summary ---
Author Organization [employer] Address [address] 7t [place] [address] Care Team Providers Care Tire Mounter Name Role Phone Gemini Messer GAURAV Primary Care Provider [phone] Encounter Details Date Type Department Care Team (Latest Contact Info) Description 05/06/2024 Travel Social History Tobacco Use Types Packs/Day [...] Description 06/03/2024 1:30 PM EST Office Visit [facility] MED[facility] [address] [place] [address] Gemini Messer NP [address] [place] [address] 06/05/2024 2:00 PM EST Medication Management [facility] [address] [place] [address] Puia Anila, PharmD [address] [place] [address] 06/19/2024 1:30 PM EDT Office Visit [facility] CHC ADULT DENTAL [address] [place], [place] [phone] Les Felder, DMD [address] [place], [place] [phone] documented as of this encounter Visit Diagnoses Not on filedocumented in this encounter Additional Health Concerns Assessment Noted Time PHQ-9 Depression Total Score: 11 025 1:12 PM EST documented as of this encounter Care Teams Tire Mounter Relationship Specialty Start Date End Date Gemini Messer NP [address] [place] [address] PCP - General Family Medicine 02/08/24 documented as of this encounter
--- OUTSIDE RECORDS SUMMARY | 2024-05-23 16:40 | XMS_ITS | Encounter Summary ---
Author Organization [employer] Address [address] [facility] 7t [place] [address] Care Team Providers Care Evening Or Night Nurse Supervisor Name Role Phone Gui Gemini GAURAV Primary Care Provider [phone] Reason for Visit * Reason Onset Date Comments chartprep 05/02/2024 Encounter Details Date Type Department Care Team ([facility] st Contact Info) Description 05/02/2024 Telephone [facility] [address] [place], [place] [phone] Emma Brown MA chartprep Social History Tobacco Use Types Packs/Day Years [...] encounter Miscellaneous Notes * Telephone Encounter - Emma Brown MA - 05/02/2024 3:01 PM EST Chart Prep Labs: done Images: done Vaccines due: Covid Due, Tdap Due, Hep A Due, Hep B Due, PCV20 Due, and Flu Due Referrals: Radiology pending appt Screenings: Colonoscopy and HIV screening Overdue care gaps: A1C, Glucose, and Oral Health documented in this encounter Plan of Treatment Upcoming Encounters Date Type Department Care Team (Late st Contact Info) Description 06/03/2024 1:30 PM EST Office Visit [facility] MED[facility]INE [address] [place] [address] Gemini Messer NP [address] [place] [address] 06/05/2024 2:00 PM EST Medication Management [facility] [address] [place] [address] Anila Faustin, CachorroD [address] [place] [address] 06/19/2024 1:30 PM EDT Office Visit [facility] CHC ADULT DENTAL [address] [place] [address] TaylorLes cabrera, DMD [address] [place] [address] documented as of this encounter Visit Diagnoses Not on filedocumented in this encounter Additional Health Concerns Assessment Noted Time PHQ-9 Depression Total Score: 11 025 1:12 PM EST documented as of this encounter Care Teams Evening Or Night Nurse Supervisor Relationship Specialty Start Date End Date Gemini Messer NP [address] [place] [address] PCP - General Family Medicine 02/08/24 documented as of this encounter
--- OUTSIDE RECORDS SUMMARY | 2024-05-23 16:40 | XMS_ITS | Encounter Summary ---
Author Organization [employer] Address [address] [facility] 7t [place] [address] Care Team Providers Care Modeling Agency Manager Name Role Phone HeathGemini landry GAURAV Primary Care Provider [phone] Encounter Details Date Type Department Care Team (Late st Contact Info) Description 05/10/2024 Telephone [facility] MEDICINE [address] [place], [place] [phone] Jazmine Keller, RN [address] [place], [place] [phone] Social History Tobacco Use Types Packs/Day Years [...] encounter Miscellaneous Notes * Telephone Encounter - Jazmine Keller RN - 05/10/2024 11:16 AM EST PA form for [employer] 3 faxed to [facility] with supporting documentation, confirmation received. documented in this encounter Plan of Treatment Upcoming Encounters Date Type Department Care Team (Late st Contact Info) Description 06/03/2024 1:30 PM EST Office Visit [facility] MEDICINE [address] [place] [address] Gemini Messer, GAURAV 230 [place] [address] 06/05/2024 2:00 PM EST Medication Management [facility] MEDICINE [address] [place] [address] Anila Faustin, PharmD 230 [place] [address] 06/19/2024 1:30 PM EDT Office Visit [facility] CHC ADULT DENTAL [address] [place] [address] Les Felder, FRANCHESCA [address] [place], [place] documented as of this encounter Visit Diagnoses Not on filedocumented in this encounter Additional Health Concerns Assessment Noted Time PHQ-9 Depression Total Score: 11 025 1:12 PM EST documented as of this encounter Care Teams Modeling Agency Manager Relationship Specialty Start Date End Date Gemini Messer NP [address] [place] [address] PCP - General Family Medicine 02/08/24 documented as of this encounter
--- OUTSIDE RECORDS SUMMARY | 2024-05-23 16:40 | XMS_ITS | Encounter Summary ---
Author Organization [employer] Address [address] [facility] 7t [place] [address] Care Team Providers Care Lamp Cleaner Street Light Name Role Phone Gemini Messer NP Primary Care Provider [phone] Reason for Visit * Reason Onset Date Comments Prior Authorization 05/22/2024 CGM Encounter Details Date Type Department Care Team ([facility] st Contact Info) Description 05/22/2024 Telephone [facility] MED[facility]INE [address] [place], [place] [phone] Gemini Messer NP [address] [place] [address] Prior Authorization (CG) Social History Tobacco Use Types Packs/Day Years [...] encounter Miscellaneous Notes * Telephone Encounter - Lavonne Huynh - 05/22/2024 2:54 PM EST Received fax from [facility] requesting office visit notes for KIRAN WARD. Notes faxed as requested. Sent to [facility]. documented in this encounter Plan of Treatment Upcoming Encounters Date Type Department Care Team (Late st Contact Info) Description 06/03/2024 1:30 PM EST Office Visit [facility] MEDICINE [address] [place] [address] Gemini Messer NP [address] [place] [address] 06/05/2024 2:00 PM EST Medication Management [facility] MEDICINE [address] [place] [address] Anila Faustin, PharmD [address] [place] [address] 06/19/2024 1:30 PM EDT Office Visit [facility] CHC ADULT DENTAL [address] [place] [address] Les Felder, DMD [address] [place] [address] documented as of this encounter Visit Diagnoses Not on filedocumented in this encounter Additional Health Concerns Assessment Noted Time PHQ-9 Depression Total Score: 11 025 1:12 PM EST documented as of this encounter Care Teams Lamp Cleaner Street Light Relationship Specialty Start Date End Date Gemini Messer NP [address] [place] [address] PCP - General Family Medicine 02/08/24 documented as of this encounter
--- OUTSIDE RECORDS SUMMARY | 2024-05-23 16:40 | XMS_ITS | Encounter Summary ---
Author Organization [employer] Address [address] [facility] 7t [place] [address] Care Team Providers Care Mosaic Worker Name Role Phone Gemini Messer NP Primary Care Provider [phone] Reason for Visit * Reason Comments Med Refill Encounter Details Date Type Department Care Team (Late st Contact Info) Description 05/16/2024 Refill [facility] MEDICINE [address] [place], [place] [phone] Gemini Messer NP 230 [place] [address] Moderate persistent asthma without complication Social History Tobacco Use Types Packs/Day Years [...] Telephone Encounter - Jazmine Keller RN - 05/23/2024 2:25 PM EST Form received that [facility] approved PA request for v2tel Lenny reader, sensor and test strips. T/C to [facility] pharmacy. Ed confirms that rx are ready for machine operator hop picker. T/C to pt to advise and to schedule nurse visit to initiate cgm. No answer, unable to leave v/m as v/m is not set up. documented in this encounter Plan of Treatment Upcoming Encounters Date Type Department Care Team (Late st Contact Info) Description 06/03/2024 1:30 PM EST Office Visit [facility] MEDICINE [address] [place] [address] Gemini Messer NP [address] [place], [place] [phone] 06/05/2024 2:00 PM EST Medication Management [facility] MEDICINE [address] [place] [address] Anila Faustin, PharmD [address] [place] [address] 06/19/2024 1:30 PM EDT Office Visit [facility] CHC ADULT DENTAL [address] [place] [address] Les Felder, FRANCHESCA [address] [place] [address] documented as of this encounter Visit Diagnoses Diagnosis Moderate persistent asthma without complication documented in this encounter Additional Health Concerns Assessment Noted Time PHQ-9 Depression Total Score: 11 025 1:12 PM EST documented as of this encounter Care Teams Mosaic Worker Relationship Specialty Start Date End Date Gemini Messer NP [address] [place] [address] PCP - General Family Medicine 02/08/24 documented as of this encounter
--- OUTSIDE RECORDS SUMMARY | 2024-05-23 16:40 | XMS_ITS | Encounter Summary ---
Author Organization [employer] Address [address] [facility] 7t [place] [address] Care Team Providers Care Employee Relation Manager Name Role Phone Ruthie SchwarzP Primary Care Provider [phone] Yamile Ramsay RESEARCH MANUFACTURING OPERATOR Primary Care Provider [phone] Gemini Messer DIVER TENDER Primary Care Provider [phone] Reason for Visit * Reason Onset Date Comments X-ray request 09/04/2023 Encounter Details Date Type Department Care Team (Late st Contact Info) Description 09/04/2023 Telephone [facility] [address] [place] [address] Ruthie Schwarz FNP [address] [place], [place] [phone] X-ray request Social History Tobacco Use Types Packs/Day Years [...] encounter Miscellaneous Notes * Telephone Encounter - Wing Olivia RN - 09/04/2023 10:57 AM EDT Tc to [facility] Radiology regarding X-ray order and to pass on message form PCP. Unable to reach pt, leftinformation that ordered needed to come from provider who ordered the line and to call back if there were any further questions. * Telephone Encounter - MARIE Adorno - 09/04/2023 10:19 AM EDT Please let them know that we did not order PICC line, XR should come from provider who is managing PICC line. Thank you * Telephone Encounter - Wing Olivia RN - 09/04/2023 9:53 AM EDT Please advise, tc to Saima at [facility] Radiology requesting a chest X-ray due to PICC line verification as the line came out about an inch. Fax number is [phone]. Stated to Saima would send message to provider to get the order in and fax it. Saima verbalized understanding and agreement with plan. * Telephone Encounter - Mark Castro - 09/04/2023 9:17 AM EDT Tc from Jen at [facility] Radiology calling to request a chest x-ray for a PICC Line Verification states it is urgent please call Jen at [phone] documented in this encounter Plan of Treatment Upcoming Encounters Date Type Department Care Team (Late st Contact Info) Description 06/03/2024 1:30 PM EST Office Visit [facility] [address] [place] [address] Gemini Messer NP 230 [place] [address] 06/05/2024 2:00 PM EST Medication Management [facility] [address] [place] [address] Anila Faustin, PharmD 230 [place] [address] 06/19/2024 1:30 PM EDT Office Visit [facility] ADULT DENTAL [address] [place] [address] Les Felder, FRANCHESCA [address] [place] [address] documented as of this encounter Visit Diagnoses Not on filedocumented in this encounter Care Teams Employee Relation Manager Relationship Specialty Start Date End Date Ruthie Schwarz FNP [address] [place] [address] PCP - General Family Medicine 11/25/21 01/23/24 Yamile Ramsay FNP [address] [place] [address] PCP - General Family Medicine 01/24/24 02/01/24 Gemini Messer NP [address] [place] [address] PCP - General Family Medicine 02/08/24 documented as of this encounter
--- OUTSIDE RECORDS SUMMARY | 2024-05-23 16:40 | XMS_ITS | Encounter Summary ---
Author Organization [employer] Address [address] [facility] 7t [place] [address] Care Team Providers Care Materials Scientist Name Role Phone GuiGemini GAURAV Primary Care Provider [phone] Encounter Details Date Type Department Care Team ([facility] st Contact Info) Description 05/06/2024 Telephone [facility] [address] [place], [place] [phone] Name, MD Ananth [address] [place] [address] Social History Tobacco Use Types Packs/Day Years [...] encounter Miscellaneous Notes * Telephone Encounter - Anila Faustin PharmD - 05/06/2024 2:03 PM EST Pharmacy is requesting an updated CDTM referral with a diagnosis of diabetes. This is to replace existing referral that no longer meets visit requirements. Please send at your earliest convenience. Thank you! documented in this encounter Plan of Treatment Upcoming Encounters Date Type Department Care Team (Late st Contact Info) Description 06/03/2024 1:30 PM EST Office Visit [facility] [address] [place] [address] Gemini Messer NP [address] [place] [address] 06/05/2024 2:00 PM EST Medication Management [facility] [address] [place] [address] Anila Faustin PharmD [address] [place] [address] 06/19/2024 1:30 PM EDT Office Visit [facility] ADULT DENTAL [address] [place] [address] Les Felder, DMD [address] [place] [address] documented as of this encounter Visit Diagnoses Not on filedocumented in this encounter Additional Health Concerns Assessment Noted Time PHQ-9 Depression Total Score: 11 025 1:12 PM EST documented as of this encounter Care Teams Materials Scientist Relationship Specialty Start Date End Date Gemini Messer NP [address] [place] [address] PCP - General Family Medicine 02/08/24 documented as of this encounter
== END 2024-05-23 15:45 | disposition home or self-care (01) ==
LOC: HO.HHCX 15:44
PROVIDERS: Visit Provider Internal Medicine
DX: M25.561 Pain in right knee (principal); M25.562 Pain in left knee
CPT/HCPCS: 73564

== ENCOUNTER → 2024-05-23 15:44 | Outpatient (BNV) | payer OTHER, SELFPAY | PROVIDERS: Visit Provider Radiology Diagnostic Radiology | DX: M25.562 Pain in left knee (principal); M25.561 Pain in right knee | CPT/HCPCS: 73564 ==

== ENCOUNTER 2024-10-01 13:58 | Emergency (ER) | payer OTHER, SELFPAY ==
--- NOTE | ~2024-10-01 | CT_ITS ---
EXAMINATION: CT HEAD WITHOUT CONTRAST CLINICAL INFORMATION: Head injury COMPARISON: May 14, 2020 TECHNIQUE: Contiguous axial imaging was performed from the skull base to vertex without intravenous administration of contrast. This CT examination was performed using dose optimization techniques as appropriate, variously including the following: *Automated exposure control *Adjustment of mA and/or kV according to patient size (this includes techniques or standardized protocols for targeted exams where dose is matched to indication/reason for exam; i.e. extremities or head) *Use of iterative reconstruction technique DLP: 782 mGY*cm FINDINGS: There is no acute ischemic change. There is no intracranial hemorrhage. There is no mass-effect or midline shift. There is mild frontotemporal atrophy Basal cisterns and ventricles are within normal limits for age/cerebral volume. Orbits are symmetrical and unremarkable. Paranasal sinuses and mastoid air cells are pneumatized. There are no bony abnormalities. CT/CT head/brain wo IV con IMPRESSION: No acute intracranial abnormality. Mild frontotemporal Atrophy Electronically signed by: Severiano Juarez MD 10/01/2024 04:33 PM EDT
[2024-10-01 14:01] VITALS: BP 154/90; PULSE 97; O2SAT 98
[2024-10-01 14:17] VITALS: BP 144/80; PULSE 87; RESP 20; TEMP 36.2; O2SAT 96; BMI 29.8
--- NOTE | 2024-10-01 14:24 | ED.HEATRA ---
HPI - Head Injury General Chief complaint: Head Injury Stated complaint: HIT HEAD ON DOOR PER EMS Time Seen by Provider: 10/01/24 14:24 Source: patient and EMS Mode of arrival: EMS Limitations: no limitations History of Present Illness ED Provider: alba shukla np HPI Narrative: patient is A 59-year-old male who presents emergency department via EMS for evaluation. He is coming from doctor's office today. Evidently he was walking through the elevator when the elevator door started closing and struck him on the side of the head. PCP at [facility] advised for patient to be transported to the emergency department to have CT of the head. Evidently he would have very dizzy after it happened, had almost fallen and reported that he felt as though he was going to pass out. There was no reported syncope. Currently he denies any headache, dizziness, lightheadedness, no associated neck pain, no vision changes. No numbness or tingling of the extremities. Related Data Home Medications ?Medication ?Instructions ?Recorded ?Confirmed acetaminophen 500 mg capsule 500 mg PO Q8H PRN Pain (Scale 10/17/22 08/09/23 (Mapap (acetaminophen)) Score 1-3) albuterol sulfate 90 mcg/actuation 2 puff inhalation QID PRN 10/17/22 08/09/23 aerosol inhaler (Ventolin HFA) Shortness Of Breath amitriptyline 50 mg tablet 50 mg PO BEDTIME 10/17/22 08/09/23 aspirin 81 mg tablet,delayed 81 mg PO DAILY@1200 10/17/22 08/09/23 release carvedilol 12.5 mg tablet 12.5 mg PO BID 10/17/22 08/09/23 fenofibrate 160 mg tablet 160 mg PO DAILY 10/17/22 08/09/23 fluticasone propionate 50 2 spray intranasal DAILY 10/17/22 08/09/23 mcg/actuation nasal spray,suspension gabapentin 800 mg tablet 800 mg PO TID 10/17/22 08/09/23 glipizide 10 mg tablet 10 mg PO BIDAC 10/17/22 08/09/23 hydroxyzine pamoate 50 mg capsule 50 mg PO TID PRN Anxiety 10/17/22 08/09/23 insulin aspart U-100 100 unit/mL See Protocol subcut TIDAC 10/17/22 08/09/23 (3 mL) subcutaneous pen (Novolog FlexPen U-100 Insulin aspart) ipratropium 0.5 mg-albuterol 3 mg 3 ml inhalation QID PRN Shortness 10/17/22 08/09/23 (2.5 mg base)/3 mL nebulization Of Breath soln loratadine 10 mg tablet 10 mg PO DAILY@1200 10/17/22 08/09/23 omeprazole 20 mg capsule,delayed 20 mg PO BID@0630,1630 10/17/22 08/09/23 release quetiapine 25 mg tablet 25 mg PO BID PRN anxiety 10/17/22 08/09/23 quetiapine 300 mg tablet 300 mg PO BEDTIME 10/17/22 08/09/23 sertraline 100 mg tablet 100 mg PO DAILY 10/17/22 08/09/23 simvastatin 40 mg tablet 40 mg PO QPM 10/17/22 08/09/23 methadone 10 mg/mL oral 75 mg PO DAILY 10/18/22 08/12/23 concentrate (Methadone Intensol) Previous Rx's ?Medication ?Instructions ?Recorded fluticasone 500 mcg-salmeterol 50 1 ea inhalation BID #60 caps 06/23/21 mcg/dose blistr powdr for inhalation ertapenem 1 gram solution for 1 g IV DAILY #41 ea 08/14/23 injection insulin glargine 100 unit/mL (3 25 unit (0.25 mL) subcut BEDTIME 08/14/23 mL) subcutaneous pen (Lantus #15 mL Solostar U-100 Insulin) ertapenem 1 gram solution for 1 g IV DAILY #22 ea 09/06/23 injection doxycycline hyclate 100 mg capsule 100 mg PO BID 30 days #60 caps 09/25/23 Allergies Allergy/AdvReac Type Severity Reaction Status Date / Time bee pollen (BEE STINGS) Allergy Severe THROAT Verified 10/01/24 14:24 SWELLING raspberry (RASPBERRY) Allergy Severe UNKNOWN Verified 10/01/24 14:24 tadalafil (From CIALIS) Allergy Severe ANAPHYLAXIS Verified 10/01/24 14:24 wool Allergy Intermediate RASH Verified 10/01/24 14:24 Review of Systems Review of Systems: Yes all other systems are reviewed and are negative PMFSH Past Medical History Attestation statement: The following information was validated with the patient. Source: old records reviewed Medical History Diarrhea Moderate persistent asthma Depression Anxiety GERD (gastroesophageal reflux disease) Diabetes Asthma Substance abuse Surgical History No pertinent past surgical history Family History Family History Father Diabetes mellitus Alcohol abuse Social History Social History Household Members: Family Housing: House Do you presently have visiting nurse or other home services: No Unable to assess alcohol history related to: Unable to respond and Unknown Patient Tobacco Use Status: Never used Tobacco Substance Use Type: Crack/Cocaine and Marijuana Advance Directives: No Advance Directives Information Provided: No Do you have a plan to hurt others: No Plan service: No Physical Exam Vital Signs: Vital Signs: Last Vital Signs Temp 97.2 F 10/01/24 14:17 Pulse 87 10/01/24 14:17 Resp 20 10/01/24 14:17 BP 144/80 H 10/01/24 14:17 Pulse Ox 96 10/01/24 14:17 O2 Del Method Room Air 10/01/24 14:17 BMI result Body Mass Index 29.8 Appearance: Alert.?Oriented to person, place and time. No acute distress.?Normal affect. Head: Normocephalic Eyes: Pupils equal, round and reactive to light. EOMI. Conjunctiva and sclera normal? No Jerome sign noted. No raccoon eyes noted ENT: No septal hematoma, nares patent bilaterally. External auditory canal normal tympanic membrane pearly cruz and intact bilaterally. Dentition normal, no fractured teeth. No lesions or lacerations of oropharynx. Uvula midline. Moist mucous membranes. Neck: Normal inspection.? Neck supple.??No palpable tenderness, step-off, deformities. CVS: Heart sounds normal. Normal heart rate and rhythm.? Pulses normal.?? Respiratory: No respiratory distress.? Lung sounds clear to auscultation bilaterally?? Abdomen: Soft and non-tender. Normoactive bowel sounds. ?? Skin: Skin warm and dry.? Normal skin color.? Normal skin turgor.?? Extremities: No lower extremity edema.? Neuro: Moves all extremities spontaneously. Sensation intact bilaterally. CN II-XII intact. No focal neuro deficits. Course Reevaluation(s) Reevaluation #1: patient reporting that he was hungry, had as nursing staff for something to eat, stating that he had not eaten in a few hours, decision was made to check his blood sugar, which resulted at 50. patient was provided with food and drink Time: 15:49 Reevaluation #2: repeat POC glucose of 99. Negative head CT. Remains without neurological deficits. Stable for discharge home at this time Medical Decision Making Medical Decision Making MDM Narrative: patient is a 59-year-old male with past medical history of depression anxiety, GERD, diabetes, asthma who presents emergency department for evaluation after head injury without loss of consciousness as per HPI. Coming from primary care doctor's office for CT head, arrives via EMS. Has been neurological deficits, NIH stroke score is 0. He takes a low-dose daily aspirin otherwise no use of anticoagulants or known coagulation disorders. Obtaining CT of the head to exclude ICH, SDH, skull fracture. Differential Diagnosis Differential Diagnoses: The differential diagnosis associated with the presentation includes (See narrative above) Admission/Observation Consideration of admission/observation: Escalation of care including admission/observation considered (See narrative above) Lab Data [facility] Lab Attestation statement: I reviewed the patient's lab results. Labs: Lab Results 10/01/24 10/01/24 Range/Units 15:40 16:21 POC Glucose 50 L* 99 (60-115) mg/dL Independent Interpretation I performed an independent interpretation of an: CT Scan ( No ICH, no SDH, no skull fracture) Radiology Impression Discussion of test interpretation with radiology: I have reviewed the radiologist's reading. Radiologist Impression: CT/CT head/brain wo IV con IMPRESSION: No acute intracranial abnormality. Mild frontotemporal Atrophy Independent Historian Clinical information obtained from an independent historian. History obtained from or confirmed by: EMS External Record Review External record reviewed: Outpatient record Prescription Management I considered prescription management with: Pain Medication ( acetaminophen/ibuprofen) Chronic Conditions Patient?s care impacted by: Other ( See narrative above) Discharge Plan Discharge Clinical Impression: Acute head injury without loss of consciousness Qualifiers: Encounter type: initial encounter Qualified Code(s): S09.90XA - Unspecified injury of head, initial encounter Patient Disposition: Home, Self-Care Instructions: Concussion (ED), Head Injury (ED) Additional Instructions: head CT was negative for any acute intracranial findings such as bleeding or fracture. Review instructions provided regarding signs and symptoms of concussion. You may return back to emergency department any new or worsening symptoms or concerns. You can take ibuprofen 200 mg, 3 tablets (600mg) every 6-8 hours as needed for pain, in addition to Tylenol 500 mg, 2 tablets (1,000mg) every 4-6 hours as needed for pain, but not to exceed 3 doses daily (3,000mg).? Prescriptions: No Action fluticasone propion-salmeterol 500-50 mcg/dose blister with device 1 ea inhalation BID Qty: 60 6RF quetiapine 25 mg tablet 25 mg PO BID PRN (Reason: anxiety) carvedilol 12.5 mg tablet 12.5 mg PO BID ipratropium-albuterol 0.5 mg-3 mg(2.5 mg base)/3 mL solution for nebulization 3 ml inhalation QID PRN (Reason: Shortness Of Breath) quetiapine 300 mg tablet 300 mg PO BEDTIME glipizide 10 mg tablet 10 mg PO BIDAC sertraline 100 mg tablet 100 mg PO DAILY hydroxyzine pamoate 50 mg capsule 50 mg PO TID PRN (Reason: Anxiety) aspirin 81 mg tablet,delayed release (DR/EC) 81 mg PO DAILY@1200 amitriptyline 50 mg tablet 50 mg PO BEDTIME simvastatin 40 mg tablet 40 mg PO QPM gabapentin 800 mg tablet 800 mg PO TID omeprazole 20 mg capsule,delayed release(DR/EC) 20 mg PO BID@0630,1630 albuterol sulfate [Ventolin HFA] 90 mcg/actuation HFA aerosol inhaler 2 puff INHALATION QID PRN (Reason: Shortness Of Breath) fluticasone propionate 50 mcg/actuation spray,suspension 2 spray intranasal DAILY acetaminophen [Mapap (acetaminophen)] 500 mg capsule 500 mg PO Q8H PRN (Reason: Pain (Scale Score 1-3)) loratadine 10 mg tablet 10 mg PO DAILY@1200 insulin aspart U-100 [Novolog FlexPen U-100 Insulin] 100 unit/mL (3 mL) insulin pen See Protocol subcut TIDAC Protocol: Insulin Correction Scale Less than or equal to 110 ---- Give (units): 0 111 to 150 Give (units): 0 151 to 200 Give (units): 2 201 to 250 Give (units): 4 251 to 300 Give (units): 6 301 to 350 Give (units): 8 Greater than 350 Give (units): 10 Call MD if Blood Glucose > : 350 Rx Instructions: SLIDING SCALE 100-149=12 UNITS, 150-199=14 UNITS, 200-249=16 UNITS, 250-299=18 UNITS, 300 AND ABOVE-20 UNITS fenofibrate 160 mg tablet 160 mg PO DAILY methadone [Methadone Intensol] 10 mg/mL Concentrate 75 mg PO DAILY insulin glargine [Lantus Solostar U-100 Insulin] 100 unit/mL (3 mL) insulin pen 25 unit subcut BEDTIME Qty: 15 0RF ertapenem 1 gram recon soln 1 g IV DAILY Qty: 41 0RF Rx Instructions: ending 07/25 ertapenem 1 gram recon soln 1 g IV DAILY Qty: 22 0RF doxycycline hyclate 100 mg capsule 100 mg PO BID 30 Days Qty: 60 0RF Print Language: Panamanian
[2024-10-01 15:51] LABS: Glucose, Whole Blood 50 mg/dL (60-115)
--- OUTSIDE RECORDS SUMMARY | 2024-10-01 16:25 | XMS_ITS | Encounter Summary ---
Author Organization [employer] Address [address] [facility] [address] [place] [address] Care Team Providers Care Stallion Manager Name Role Phone Ruthie Schwarz Primary Care Provider [phone] Yamile Rasmay SHELLFISH HARVESTER Primary Care Provider Gemini Messer TOLL PATROLMAN Primary Care Provider [phone] Anila Faustin PharmD Unavailable Reason for Visit * Reason Onset Date Comments triage 04/27/2022 Encounter Details Date Type Department Care Team (Late st Contact Info) Description 04/27/2022 Telephone [facility] [address] [place] [address] Ruthie Schwarz FNP [address] [place], [place] [phone] triage Social History Tobacco Use Types Packs/Day Years Used Date Smoking Tobacco: Never Assessed Sex and Gender Information Value Date Recorded Sex Assigned at Male 01/31/2022 10:22 AM EDT Legal Sex Male 10:22 AM EDT Gender Identity Male 01/31/2022 10:22 AM EDT Sexual Orientation Straight 01/31/2022 10 :22 AM EDT documented as of this encounter Miscellaneous Notes * Telephone Encounter - Annabelle Parsons - 04/27/2022 3:28 PM EST Tc from pt calling stating that medication Mapap 500mg its not working. Script directions is take 1tab every 8 hours as need but pt is doing 2 tab sometimes pt is 10 days early. documented in this encounter Plan of Treatment Not on file documented as of this encounter Visit Diagnoses Not on filedocumented in this encounter Care Teams Stallion Manager Relationship Specialty Start Date End Date Ruthie Schwarz FNP [address] [place] [id number] PCP - General Family Medicine 11/25/21 01/23/24 Yamile Ramsay FNP [address] [place] [address] PCP - General Family Medicine 01/24/24 02/01/24 Gemini Messer NP [address] [place] [address] PCP - General Family Medicine 02/08/24 Anila Faustin PharmD [address] [place] [phone] Pharmacist Internal Medicine 06/05/[address] [facility] 07/23/24 documented as of this encounter
[2024-10-01 16:26] LABS: Glucose, Whole Blood 99 mg/dL (60-115)
[2024-10-01 16:49] VITALS: BP 104/58; PULSE 70; RESP 18; TEMP 36.3; O2SAT 99
[2024-10-01 16:56] LABS: Glucose, Whole Blood 85 mg/dL (60-115)
[2024-10-01 17:10] VITALS: BP 104/58; PULSE 70; RESP 18; TEMP 36.3; O2SAT 99
== END 2024-10-01 17:14 | disposition home or self-care (01) ==
PROVIDERS: Emergency Provider Emergency Medicine Emergency Medical Services; PCP Nurse Practitioner
DX: S09.90XA Unspecified injury of head, initial encounter (principal); R51.9 Headache, unspecified; E11.9 Type 2 diabetes mellitus without complications; X58.XXXA Exposure to other specified factors, initial encounter; Y93.9 Activity, unspecified; Y92.9 Unspecified place or not applicable; Y99.8 Other external cause status; Z79.4 Long term (current) use of insulin; Z79.899 Other long term (current) drug therapy
CPT/HCPCS: 70450; 82947; 99284

== ENCOUNTER → 2024-10-01 14:27 | Outpatient (BNV) | payer OTHER, SELFPAY | PROVIDERS: Emergency Provider Emergency Medicine Emergency Medical Services; PCP Nurse Practitioner; Visit Provider Radiology Diagnostic Radiology | DX: S09.90XA Unspecified injury of head, initial encounter (principal) | CPT/HCPCS: 70450 ==

== ENCOUNTER 2024-11-12 10:42 | Outpatient (REF) | payer OTHER, SELFPAY ==
--- OUTSIDE RECORDS SUMMARY | 2024-11-12 11:47 | XMS_ITS | Encounter Summary ---
Author Organization [facility] [employer] Address [address] [facility] [address] [place] [address] Care Team Providers Care Car Lot Attendant Name Role Phone Ruthie Schwarz Primary Care Provider Yamile Ramsay LEARNING TECHNOLOGIST Primary Care Provider [phone] Gemini Messer SALESPERSON PARTS Primary Care Provider [phone] Anila Faustin PharmD Unavailable [phone] Reason for Visit * Reason Onset Date Comments triage 04/27/2022 Encounter Details Date Type Department Care Team (Late st Contact Info) Description 04/27/2022 Telephone [facility] [address] [place] [address] Ruthie Schwarz FNP [address] [place], [place] [phone] triage Social History Tobacco Use Types Packs/Day [...] Care Team (Late st Contact Info) Description 11/13/2024 2:00 PM EDT Medication Management [facility] [address] [facility] [place] [address] Anila Faustin PharmD [address] [facility] [place] [address] 11/22/2024 1:30 PM EDT Office Visit [facility] [address] [facility] [place] [address] Michael Joe, DMD [address] [place] [address] documented as of this encounter Visit Diagnoses Not on filedocumented in this encounter Care Teams Car Lot Attendant Relationship Specialty Start Date End Date Ruthie [place] [address] PCP - General Family Medicine 11/25/21 01/23/24 Yamile Ramsay FNP [address] [facility] [place] [address] PCP - General Family Medicine 01/24/24 02/01/24 Gemini Messer NP [address] [facility] [place] [address] PCP - General Family Medicine 02/08/24 Anila Faustin PharmD [address] [facility] [place] [address] Pharmacist Internal Medicine 06/05/24 [facility] 07/23/24 documented as of this encounter
[2024-11-12 14:07] LABS: Vitamin B12 390 pg/mL (200-900)
[2024-11-12 14:12] LABS: Alanine Aminotransferase 22 U/L (0-40); Albumin Level 4.3 g/dL (3.5-5.0); Alkaline Phosphatase 77 U/L (39-117); Aspartate Amino Transferase 40 U/L (5-37); Cholesterol 133 mg/dL (<200); HDL Cholesterol 38 mg/dL (>40); Total Protein 7.3 g/dL (6.5-8.0); Triglycerides 224 mg/dL (<150)
[2024-11-12 19:03] LABS: Reflex LDLD? No
== END 2024-11-12 10:43 | disposition home or self-care (01) ==
LOC: HO.HHCL 10:42
PROVIDERS: PCP Nurse Practitioner; Visit Provider Nurse Practitioner
DX: E11.65 Type 2 diabetes mellitus with hyperglycemia (principal); E11.69 Type 2 diabetes mellitus with other specified complication; E78.5 Hyperlipidemia, unspecified; E11.42 Type 2 diabetes mellitus with diabetic polyneuropathy; Z79.4 Long term (current) use of insulin
CPT/HCPCS: 36415; 80061; 80076; 82607

== ENCOUNTER 2025-02-13 16:21 | Emergency (ER) | payer OTHER, SELFPAY ==
--- NOTE | ~2025-02-13 | XR_ITS ---
CLINICAL HISTORY: Right toe erythema, swollen. osteo? 3 views right foot Comparison: 03/25/2024 Findings: No fractures or dislocations. No joint effusion. There is 3rd digit soft tissue swelling. There is resorption of the tuft of the 3rd distal phalanx, concerning for osteomyelitis. There is also resorption or prior resection of the distal aspect of the 2nd distal phalanx, suggesting interval partial amputation versus sequela of osteomyelitis as well. No other radiographic evidence of osteomyelitis. Impression: 1. Third digit soft tissue swelling and resorption of the tuft of the 3rd distal phalanx is concerning for osteomyelitis of the 3rd distal phalanx. 2. Resorption versus interval resection of the distal aspect of the 2nd distal phalanx, as described above. This document has been electronically signed by: Jeff Otto MD on 02/13/2025 18:28:57
--- OUTSIDE RECORDS SUMMARY | 2025-02-13 15:20 | XMS_ITS | Encounter Summary ---
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) Social History Tobacco Use Types [...] Sign Reading Time Taken Comments Blood Pressure 140/77 02/13/2025 3:46 PM EST Pulse 88 02/13/2025 3:46 PM EST Temperature 36.2 C (97.1 F) 02/13/2025 3:46 PM EST Respiratory Rate 16 02/13/2025 3:46 PM EST Oxygen Saturation 96% 02/13/2025 3:46 PM EST Inhaled Oxygen Concentration - - Weight 111 kg (244 lb 3.2 oz) 02/13/2025 3:46 PM EST Height 182.9 cm (6') 02/13/2025 3:46 PM EST Body Mass Index 33.12 02/13/2025 3:46 PM EST documented in this encounter Plan of Treatment Upcoming Encounters Date Type Department Care Team (Late st Contact Info) Description 04/01/2025 2:30 PM EST Medication Management [facility] [address] [place], [place] [phone] Anila Faustin, PharmD [address] [place], [place] [phone] documented as of this encounter Goals Goal Patient Goal Type Associated Problems Recent Progress Patient-Stated? Author Help patients manage their type 2 diabetes Care Plan Help patients manage their type 2 diabetes No Puia, Anila, PharmD Weekly blood pressure task Care Plan Weekly blood pressure task No Puia, Anila, PharmD Help patients manage their type 2 diabetes Care Plan Help patients manage their type 2 diabetes No Puia, Anila, PharmD Patient has chronic kidney disease Care Plan Patient has chronic kidney disease No Puia, Anila, PharmD Help patients manage their type 2 diabetes Care Plan Help patients manage their type 2 diabetes No Puia, Anila, PharmD Patient has diabetic neuropathy Care Plan Patient has diabetic neuropathy No Puia, Anila, PharmD Weekly blood pressure task Care Plan Weekly blood pressure task No Puia, Anila, PharmD Weekly blood pressure task Care Plan Weekly blood pressure task No Puia, Anila, PharmD Patient has chronic kidney disease Care Plan Patient has chronic kidney disease No Puia, Anila, PharmD Patient has chronic kidney disease Care Plan Patient has chronic kidney disease No Puia, Anila, PharmD Patient has diabetic neuropathy Care Plan Patient has diabetic neuropathy No Puia, Anila, PharmD Patient has diabetic neuropathy Care Plan Patient has diabetic neuropathy No Puia, Anila, PharmD Weekly blood pressure task Care Plan Weekly blood pressure task No Suzy Escobar MD Weekly blood pressure task Care Plan Weekly blood pressure task No Suzy Escobar MD Weekly blood pressure task Care Plan Weekly blood pressure task No Suzy Escobar MD Patient has chronic kidney disease Care Plan Patient has chronic kidney disease No Suzy Escobar MD Patient has chronic kidney disease Care Plan Patient has chronic kidney disease No Suzy Escobar MD Patient has chronic kidney disease Care Plan Patient has chronic kidney disease No Suzy Escobar MD Patient has diabetic neuropathy Care Plan Patient has diabetic neuropathy No Suzy Escobar MD Patient has diabetic neuropathy Care Plan Patient has diabetic neuropathy No Suzy Escobar MD Patient has diabetic neuropathy Care Plan Patient has diabetic neuropathy No Suzy Escobar MD Weekly blood pressure task Care Plan Weekly blood pressure task No Dominique Hui RN Weekly blood pressure task Care Plan Weekly blood pressure task No Dominique Hui RN Weekly blood pressure task Care Plan Weekly blood pressure task No Dominique Hui RN Patient has chronic kidney disease Care Plan Patient has chronic kidney disease No Dominique Hui RN Patient has chronic kidney disease Care Plan Patient has chronic kidney disease No Dominique Hui RN Patient has chronic kidney disease Care Plan Patient has chronic kidney disease No Dominique Hui RN Patient has diabetic neuropathy Care Plan Patient has diabetic neuropathy No Dominique Hui RN Patient has diabetic neuropathy Care Plan Patient has diabetic neuropathy No Dominique Hui RN Patient has diabetic neuropathy Care Plan Patient has diabetic neuropathy No Dominique Hui RN documented as of this encounter Visit Diagnoses Diagnosis Diabetic infection of right foot (HCC)- Primary documented in this encounter Additional Health Concerns Active Problems Noted Date Diagnosed Date Help patients manage their type 2 diabetes 02/12 Weekly blood pressure task 02/12/2025 Help patients manage their type 2 diabetes 02/12 Patient has chronic kidney disease 02/12/2025 Help patients manage their type 2 diabetes 02/12 Patient has diabetic neuropathy 02/12/2025 Weekly blood pressure task 02/12/2025 Weekly blood pressure task 02/12/2025 Patient has chronic kidney disease 02/12/2025 Patient has chronic kidney disease 02/12/2025 Patient has diabetic neuropathy 02/12/2025 Patient has diabetic neuropathy 02/12/2025 Weekly blood pressure task 02/13/2025 Weekly blood pressure task 02/13/2025 Weekly blood pressure task 02/13/2025 Patient has chronic kidney disease 02/13/2025 Patient has chronic kidney disease 02/13/2025 Patient has chronic kidney disease 02/13/2025 Patient has diabetic neuropathy 02/13/2025 Patient has diabetic neuropathy 02/13/2025 Patient has diabetic neuropathy 02/13/2025 Weekly blood pressure task 02/13/2025 Weekly blood pressure task 02/13/2025 Weekly blood pressure task 02/13/2025 Patient has chronic kidney disease 02/13/2025 Patient has chronic kidney disease 02/13/2025 Patient has chronic kidney disease 02/13/2025 Patient has diabetic neuropathy 02/13/2025 Patient has diabetic neuropathy 02/13/2025 Patient has diabetic neuropathy 02/13/2025 Assessment Noted Time PHQ-9 Depression Total Score: 11 025 1:12 PM EST documented as of this encounter Care Teams Welder Pipe Making Relationship Specialty Start Date End Date Gemini Messer NP [address] [place] [address] [place] [address] PCP - General Family Medicine 02/08/24 Anila Fuastin PharmD [address] [place] [address] Pharmacist Internal Medicine 06/05/24 [facility] 07/23/24 documented as of this encounter
[2025-02-13 16:46] VITALS: BP 154/72; PULSE 89; RESP 18; TEMP 36.9; O2SAT 95; BMI 32.9
--- NOTE | 2025-02-13 16:51 | ED.GENADULT ---
HPI - General Adult General Chief complaint: General Medical Stated complaint: Needs scan of rt foot/from [facility] Time Seen by Provider: 02/13/25 18:46 Related Data Home Medications ?Medication ?Instructions ?Recorded ?Confirmed acetaminophen 500 mg capsule 500 mg PO Q8H PRN Pain (Scale 10/17/22 08/09/23 (Mapap (acetaminophen)) Score 1-3) albuterol sulfate 90 mcg/actuation 2 puff inhalation QID PRN 10/17/22 08/09/23 aerosol inhaler (Ventolin HFA) Shortness Of Breath amitriptyline 50 mg tablet 50 mg PO BEDTIME 10/17/22 08/09/23 aspirin 81 mg tablet,delayed 81 mg PO DAILY@1200 10/17/22 08/09/23 release carvedilol 12.5 mg tablet 12.5 mg PO BID 10/17/22 08/09/23 fenofibrate 160 mg tablet 160 mg PO DAILY 10/17/22 08/09/23 fluticasone propionate 50 2 spray intranasal DAILY 10/17/22 08/09/23 mcg/actuation nasal spray,suspension gabapentin 800 mg tablet 800 mg PO TID 10/17/22 08/09/23 glipizide 10 mg tablet 10 mg PO BIDAC 10/17/22 08/09/23 hydroxyzine pamoate 50 mg capsule 50 mg PO TID PRN Anxiety 10/17/22 08/09/23 insulin aspart U-100 100 unit/mL See Protocol subcut TIDAC 10/17/22 08/09/23 (3 mL) subcutaneous pen (Novolog FlexPen U-100 Insulin aspart) ipratropium 0.5 mg-albuterol 3 mg 3 ml inhalation QID PRN Shortness 10/17/22 08/09/23 (2.5 mg base)/3 mL nebulization Of Breath soln loratadine 10 mg tablet 10 mg PO DAILY@1200 10/17/22 08/09/23 omeprazole 20 mg capsule,delayed 20 mg PO BID@0630,1630 10/17/22 08/09/23 release quetiapine 25 mg tablet 25 mg PO BID PRN anxiety 10/17/22 08/09/23 quetiapine 300 mg tablet 300 mg PO BEDTIME 10/17/22 08/09/23 sertraline 100 mg tablet 100 mg PO DAILY 10/17/22 08/09/23 simvastatin 40 mg tablet 40 mg PO QPM 10/17/22 08/09/23 methadone 10 mg/mL oral 75 mg PO DAILY 10/18/22 08/12/23 concentrate (Methadone Intensol) Previous Rx's ?Medication ?Instructions ?Recorded fluticasone 500 mcg-salmeterol 50 1 ea inhalation BID #60 caps 06/23/21 mcg/dose blistr powdr for inhalation ertapenem 1 gram solution for 1 g IV DAILY #41 ea 08/14/23 injection insulin glargine 100 unit/mL (3 25 unit (0.25 mL) subcut BEDTIME 08/14/23 mL) subcutaneous pen (Lantus #15 mL Solostar U-100 Insulin) ertapenem 1 gram solution for 1 g IV DAILY #22 ea 09/06/23 injection doxycycline hyclate 100 mg capsule 100 mg PO BID 30 days #60 caps 09/25/23 doxycycline hyclate 100 mg capsule 100 mg PO BID 30 days #60 caps 02/14/25 Allergies Allergy/AdvReac Type Severity Reaction Status Date / Time bee pollen (BEE STINGS) Allergy Severe THROAT Verified 02/14/25 16:47 SWELLING raspberry (RASPBERRY) Allergy Severe UNKNOWN Verified 02/14/25 16:47 tadalafil (From CIALIS) Allergy Severe ANAPHYLAXIS Verified 02/14/25 16:47 wool Allergy Intermediate RASH Verified 02/14/25 16:47 PMFSH Past Medical History Medical History Diarrhea Moderate persistent asthma Depression Anxiety GERD (gastroesophageal reflux disease) Diabetes Asthma Substance abuse Surgical History No pertinent past surgical history Family History Family History Father Diabetes mellitus Alcohol abuse Social History Social History Household Members: Family Housing: House Do you presently have visiting nurse or other home services: No Patient Tobacco Use Status: Never used Tobacco Smoked in Last 30 Days: No Use of substances other than those prescribed or required for medical reasons: No Substance Use Type: Marijuana Advance Directives: No Advance Directives Information Provided: No service: No Physical Exam ED Vital Signs: Vital Signs - 24 hr 02/13/25 16:46 02/13/25 18:50 02/13/25 20:16 Temperature 98.5 F 98.1 F 98.1 F Pulse Rate 89 90 88 Respiratory Rate 18 18 16 Blood Pressure 154/72 H 158/86 H 146/89 H Pulse Oximetry 95 98 98 Oxygen Delivery Method Room Air Room Air Room Air BMI result Body Mass Index 32.9 Course Course Course Narrative: RME: 59 yold male presents to the ED for right toe erythema, swellint, and tenderness. Patient is diabetic with pmh of toe infections. labs and xray ordered. Exam positive for right swollen erytheatmous toe Medical Decision Making Medical Decision Making MDM Narrative: patient eloped from the emergency department prior to me having a chance to see him. Lab Data 02/13/25 17:12 02/13/25 17:12 Labs: Lab Results 02/13/25 Range/Units 17:12 WBC 9.9 (4.8-10.8) X10*3/uL RBC 4.14 L (4.60-5.80) X10*6/uL Hgb 11.9 L (14.0-18.0) g/dl Hct 35.3 L (42.0-52.0) % MCV 85.3 (80.0-98.0) fL MCH 28.7 (27.0-33.0) pg MCHC 33.7 (31.0-36.0) g/dl RDW 12.5 (11.0-16.0) % Plt Count 254 (160-400) X10*3/uL MPV 10.3 (9.4-12.4) fL Immature Gran % (Auto) 0.3 (0.0-0.4) % Neut % (Auto) 67.4 (45-73) % Lymph % (Auto) 17.6 L (20-40) % [place] % (Auto) 12.0 H (2-11) % Eos % (Auto) 2.3 (0-4) % Baso % (Auto) 0.4 (0-2) % Lymph # (Auto) 1.8 (1.2-4.9) X10*3/uL [place] # (Auto) 1.2 (0.1-1.2) X10*3/uL Eos # (Auto) 0.2 (0.0-0.4) X10*3/uL Baso # (Auto) 0.0 (0.0-0.2) X10*3/uL Abs Immat Gran (auto) 0.03 (0.00-0.03) X10*3/uL Absolute Neuts (auto) 6.7 (2.0-8.3) x10*3/uL Absolute Nucleated RBC 0.000 (0.0-0.012) X10*3/uL Nucleated RBC % (auto) 0.0 (0.0-0.2) /100WBC ESR 77 H (0-15) MM/HR Sodium 135 (135-145) mmol/L Potassium 4.6 (3.3-5.1) mmol/L Chloride 98 (96-108) mmol/L Carbon Dioxide 30 H (22-29) mmol/L Anion Gap 12 (12-20) BUN 17 H (9-16) mg/dL Creatinine 0.88 (0.5-1.4) mg/dL Estim Creat Clear Calc 114.2 Estimated GFR > 60 POC Glucose 120 H (60-115) mg/dL Random Glucose 122 H (60-115) mg/dL Lactic Acid 0.6 (0.5-2.0) mmol/L Calcium 9.5 (8.4-10.2) mg/dL Total Bilirubin 0.2 (0.0-1.0) mg/dL AST 17 (5-37) U/L ALT 16 (0-40) U/L Alkaline Phosphatase 84 (39-117) U/L C-Reactive Protein 8.07 H (< or = 0.50) mg/dL Total Protein 7.7 (6.5-8.0) g/dL Albumin 4.2 (3.5-5.0) g/dL Discharge Plan Discharge Clinical Impression: Diabetic infection of left foot Patient Disposition: Left W/O Completing Treatment Prescriptions: No Action fluticasone propion-salmeterol 500-50 mcg/dose blister with device 1 ea inhalation BID Qty: 60 6RF quetiapine 25 mg tablet 25 mg PO BID PRN (Reason: anxiety) carvedilol 12.5 mg tablet 12.5 mg PO BID ipratropium-albuterol 0.5 mg-3 mg(2.5 mg base)/3 mL solution for nebulization 3 ml inhalation QID PRN (Reason: Shortness Of Breath) quetiapine 300 mg tablet 300 mg PO BEDTIME glipizide 10 mg tablet 10 mg PO BIDAC sertraline 100 mg tablet 100 mg PO DAILY hydroxyzine pamoate 50 mg capsule 50 mg PO TID PRN (Reason: Anxiety) aspirin 81 mg tablet,delayed release (DR/EC) 81 mg PO DAILY@1200 amitriptyline 50 mg tablet 50 mg PO BEDTIME simvastatin 40 mg tablet 40 mg PO QPM gabapentin 800 mg tablet 800 mg PO TID omeprazole 20 mg capsule,delayed release(DR/EC) 20 mg PO BID@0630,1630 albuterol sulfate [Ventolin HFA] 90 mcg/actuation HFA aerosol inhaler 2 puff INHALATION QID PRN (Reason: Shortness Of Breath) fluticasone propionate 50 mcg/actuation spray,suspension 2 spray intranasal DAILY acetaminophen [Mapap (acetaminophen)] 500 mg capsule 500 mg PO Q8H PRN (Reason: Pain (Scale Score 1-3)) loratadine 10 mg tablet 10 mg PO DAILY@1200 insulin aspart U-100 [Novolog FlexPen U-100 Insulin] 100 unit/mL (3 mL) insulin pen See Protocol subcut TIDAC Protocol: Insulin Correction Scale Less than or equal to 110 ---- Give (units): 0 111 to 150 Give (units): 0 151 to 200 Give (units): 2 201 to 250 Give (units): 4 251 to 300 Give (units): 6 301 to 350 Give (units): 8 Greater than 350 Give (units): 10 Call MD if Blood Glucose > : 350 Rx Instructions: SLIDING SCALE 100-149=12 UNITS, 150-199=14 UNITS, 200-249=16 UNITS, 250-299=18 UNITS, 300 AND ABOVE-20 UNITS fenofibrate 160 mg tablet 160 mg PO DAILY methadone [Methadone Intensol] 10 mg/mL Concentrate 75 mg PO DAILY insulin glargine [Lantus Solostar U-100 Insulin] 100 unit/mL (3 mL) insulin pen 25 unit subcut BEDTIME Qty: 15 0RF ertapenem 1 gram recon soln 1 g IV DAILY Qty: 41 0RF Rx Instructions: ending 07/25 ertapenem 1 gram recon soln 1 g IV DAILY Qty: 22 0RF doxycycline hyclate 100 mg capsule 100 mg PO BID 30 Days Qty: 60 0RF doxycycline hyclate 100 mg capsule 100 mg PO BID 30 Days Qty: 60 0RF Interventions: LWBS Worksheet Last Done: 02/13/25 22:08 Discharge Date/Time: 02/13/25 22:19
[2025-02-13 17:17] LABS: Glucose, Whole Blood 120 mg/dL (60-115)
[2025-02-13 17:18] LABS: MANUAL DIFF FLAG NO
[2025-02-13 17:22] LABS: Hematocrit 35.3 % (42.0-52.0); Hemoglobin 11.9 g/dl (14.0-18.0); Imm Gran Abs Auto 0.03 X10*3/uL (0.00-0.03); Imm Gran Pct Auto 0.3 % (0.0-0.4); Lymphocytes Absolute Auto 1.8 X10*3/uL (1.2-4.9); Mean Corpuscular HGB Conc 33.7 g/dl (31.0-36.0); Mean Corpuscular Hemoglobin 28.7 pg (27.0-33.0); Mean Corpuscular Volume 85.3 fL (80.0-98.0); NRBC Abs Auto 0.000 X10*3/uL (0.0-0.012); NRBC Pct Auto 0.0 /100WBC (0.0-0.2); Platelet Count 254 X10*3/uL (160-400); Red Blood Count 4.14 X10*6/uL (4.60-5.80); White Blood Count 9.9 X10*3/uL (4.8-10.8)
[2025-02-13 17:35] LABS: Alanine Aminotransferase 16 U/L (0-40); Albumin Level 4.2 g/dL (3.5-5.0); Alkaline Phosphatase 84 U/L (39-117); Anion Gap 12 (12-20); Aspartate Amino Transferase 17 U/L (5-37); Blood Urea Nitrogen 17 mg/dL (9-16); Calcium 9.5 mg/dL (8.4-10.2); Carbon Dioxide 30 mmol/L (22-29); Chloride 98 mmol/L (96-108); Creatinine Clr Calc Pharmacy 114.2; Estimated Glomerular Filt Rate > 60; Potassium 4.6 mmol/L (3.3-5.1); Sodium 135 mmol/L (135-145); Total Protein 7.7 g/dL (6.5-8.0)
[2025-02-13 17:59] LABS: Erythrocyte Sedimentation Rate 77 MM/HR (0-15)
[2025-02-13 18:50] VITALS: BP 158/86; PULSE 90; RESP 18; TEMP 36.7; O2SAT 98
--- OUTSIDE RECORDS SUMMARY | 2025-02-13 19:04 | XMS_ITS | Encounter Summary ---
Author Organization [employer] Address [address] [facility] [address] [place] [address] Care Team Providers Care Nurse Head Name Role Phone Ruthie SchwarzP Primary Care Provider [phone] Yamile Ramsay FIRE CHIEF Primary Care Provider [phone] Gemini Messer NETWORKS SOFTWARE CONSULTANT Primary Care Provider [phone] PuAnila ying PharmD Unavailable [phone] Encounter Details Date Type Department Care Team (Late st Contact Info) Description 03/16/2022 Orders Only [facility] CHC MED & PEDS [address] [place] [address] Payton Knuston LPN Social History Tobacco Use Types Packs/Day [...] Description 04/01/2025 2:30 PM EST Medication Management [facility] MEDICINE [address] [place] [address] PuiaRickieAnila, PharmD [address] [place] [address] documented as of this encounter Visit Diagnoses Not on filedocumented in this encounter Care Teams Nurse Head Relationship Specialty Start Date End Date Ruthie Schwarz FNP [address] [place] [address] PCP - General Family Medicine 11/25/21 01/23/24 Yamile Ramsay FNP [address] [place] [address] PCP - General Family Medicine 01/24/24 02/01/24 Gemini Messer NP [address] [place] [address] PCP - General Family Medicine 02/08/24 Anila Faustin PharmD [address] [place] [address] Pharmacist Internal Medicine 06/05/24 [facility] 07/23/24 documented as of this encounter
--- OUTSIDE RECORDS SUMMARY | 2025-02-13 19:04 | XMS_ITS | Encounter Summary ---
Author Organization [employer] Address [address] [place] [address] Care Team Providers Care Sand Cleaning Machine Operator Name Role Phone Gemini Messer GAURAV Primary Care Provider [phone] Anila Faustin PharmD Unavailable [phone] Encounter Details Date Type Department Care Team (Latest Contact Info) Description 02/13/2025 Travel Social History Tobacco Use Types Packs/Day [...] the past 12 months, has t he [employer], gas, oil or water company threatened to [...] Description 04/01/2025 2:30 PM EST Medication Management [facility] MEDICINE [address] [place] [address] Puia, Anila, PharmD [address] [place] [address] documented as of this encounter Goals Goal [...] filedocumented in this encounter Additional Health Concerns Active [...] documented as of this encounter Care Teams Sand Cleaning Machine Operator Relationship Specialty Start Date End Date Gemini Messer NP [address] [place] [address] PCP - General Family Medicine 02/08/24 Anila Faustin PharmD [address] [place] [address] Pharmacist Internal Medicine 06/05/24 [facility] 07/23/24 documented as of this encounter
--- OUTSIDE RECORDS SUMMARY | 2025-02-13 19:04 | XMS_ITS | Encounter Summary ---
Author Organization [employer] [facility] Address [address] [facility] [address] [place] [address] Care Team Providers Care Health Occupations Teacher Name Role Phone Ruthie SchwarzP Primary Care Provider [phone] Yamile Ramsay SHRIMP PEELING MACHINE OPERATOR Primary Care Provider [phone] Gemini Messer BULK TANK DRIVER Primary Care Provider [phone] PuAnila ying PharmD Unavailable Encounter Details Date Type Department Care Team (Late st Contact Info) Description 03/31/2022 Orders Only [facility] [address] [place] [address] Jill Felix, BONI Social History Tobacco Use [...] Description 04/01/2025 2:30 PM EST Medication Management [facility] [address] [place] [phone] Puia, Anila, PharmD [address] [place] [address] documented as of this encounter Visit Diagnoses Not on filedocumented in this encounter Care Teams Health Occupations Teacher Relationship Specialty Start Date End Date Ruthie Schwarz FNP [address] [place] [address] PCP - General Family Medicine 11/25/21 01/23/24 Yamile Ramsay FNP [address] [place] [address] PCP - General Family Medicine 01/24/24 02/01/24 Gemini Messer NP [address] [place] [address] PCP - General Family Medicine 02/08/24 Anila Faustin PharmD [address] [place] [address] Pharmacist Internal Medicine 06/05/24 [facility] 07/23/24 documented as of this encounter
--- OUTSIDE RECORDS SUMMARY | 2025-02-13 19:04 | XMS_ITS | Encounter Summary ---
Author Organization [employer] Address [address] [facility] [address] [place] [address] Care Team Providers Care Criminal Intelligence Specialist Name Role Phone Gemini Messer NP Primary Care Provider [phone] Anila Faustin PharmD Unavailable [phone] Encounter Details Date Type Department Care Team (Late st Contact Info) Description 05/16/2024 Orders Only [facility] MEDICINE [address] [place], [place] [phone] Gemini Messer NP [address] [place] [address] Social History Tobacco Use Types Packs/Day Years [...] 2:30 PM EST Medication Management [facility] MEDICINE [address] [place] [address] Anila Faustin PharmD [address] [place] [address] documented as of this encounter Visit Diagnoses Not on filedocumented in this encounter Additional Health Concerns Assessment Noted Time PHQ-9 Depression Total Score: 11 025 1:12 PM EST documented as of this encounter Care Teams Criminal Intelligence Specialist Relationship Specialty Start Date End Date Gemini Messer NP [address] [place] [address] PCP - General Family Medicine 02/08/24 Anila Faustin, PharmD [address] [place] [phone] Pharmacist Internal Medicine 06/05/24 [facility] 07/23/24 documented as of this encounter
--- OUTSIDE RECORDS SUMMARY | 2025-02-13 19:04 | XMS_ITS | Data Portability ---
Author Organization [employer] [facility] Address [address] [place] [address] Care Team Providers Care Beck Operator Name Role Phone HIM CCA OTHER Unavailable OTHER Assessment Encounter Date Assessment Date Assessment [...] benefit from an in-person PCP appointment for assessment/longi tudinal follow up of these wounds and improved [...] no improvement -otherwise return to primary team [email or web address] Not available 01/23/2024 17:51:00 Plan of Treatment Reminders Order Date Submit Date Provider Last Modified By Organization Details Last Modified Time Details Appointments None recorded. Lab None recorded. Referral None recorded. Procedures None recorded. Surgeries None recorded. Imaging None recorded. Medication Orders doxycycline hyclate 100 mg capsule 2023 [facility], [address] [place] [address], [id number], 10:35:27 doxycycline hyclate 100 mg tablet [facility]23 [facility] [address] [place] [address], [id number], 17:45:25 Patient TargetsNo targets recorded. Patient InstructionsNo instructions recorded. Reason for Referral None Reported. Medical Equipment None Reported. Allergies Allergen ID Allergen Name Allergen Category Reaction Reaction Severity Criticality Documentation Date Start Date Code Code System Note Provider Name and Address Organization Details Recorded Time 5761 Cialis medicatio n Not available Not available Not available 11/02/2023 71310 3 RxNorm Mabel Goddard MD [address] [place] [address],[address], [place], [phone], [employer] 13:39:30 Medications Name Sig Start Date Stop [...] Body weight Body height Heart rate Systolic And Diastolic Provider Name and Address Organization Details Last Updated DateTime 4 99 % 99 % 16 /min 97.1 [degF] 49490.3 2 g 182.88 cm 84 /min 122/83 mm[Hg] Not Available [employer] [facility] [employer] 4 13:35:39 Date Recorded Body weight Body height Body temperature Oxygen saturation Oxygen saturation in Arterial blood by Pulse oximetry Respiratory rate Heart rate Systolic And Diastolic Provider Name and Address Organization Details Last Updated DateTime 4 96113.6 g 172.72 cm 98.4 [degF] 98 % 98 % 14 /min 80 /min 138/72 mm[Hg] Not Available [employer] [facility] [employer] 17:34:38 Social History None recorded. Functional Status None recorded. Mental Status None recorded. Family History Nothing Reported. Medical History No medical history recorded. Past Encounters Encounter ID Performer Location Encounter Start Date Encounter Closed Date Diagnosis/Indication Diagnosis SNOMED-CT Code Diagnosis ICD10 Code Diagnosis IMO Codes Diagnosis Note [id number] Mabel Goddard MD Main - [address] [phone] 11/02/2023 13:35:26 11/05/2023 21:50:53 Diabetic foot ulcer 064886586 E13.621 [id number] Juan Antonio Sun MD [facility] - [address] [address] 01/23/2024 17:34:23 01/24/2024 00:02:04 Cellulitis of left lower limb [id number] 4453817 L03.116 Health Concerns Section Related Observation LastModified by Organization Detai ls LastModified Time None Recorded Concern Status LastModified by Organization Details LastModified Time None Recorded Advance Directives Directive None Recorded Payers Insurance Date Sequence Insurance Name Policy Number Policy Dubose Covered Member ID Dubose Member ID Guarantor Name 02/06/2024 1 [facility] - DOS ON OR AFTER 2022 - DUAL ELIGIBLE - LONG-TERM OPTIONS AND ONE CARE (MEDICARE REPLACEMENT/ADV ANTAGE - HMO) Mckinley Berry [id number] Mckinley Berry Notes Date Note Type Note Provider Name and Address Organization Details Recorded Time 11/02/2023 text/html HPI: blood sugar in 300s, open wound near toes on right foot Member is followed by ID due to h/o sepsis .................... .................... .................... .................... .................... .................... .................... . CRC Nurse Triage Notes (Amy Johnston): Chief Complaints: Wound Care PMH: Diabetes, Hypertension Other Allergies: tadalafil Comments: Centrifugal Casting Machine Tender verified the member's name//address and phone number. [...] .................... .................... .................... .................... .................... .................... . Shotblast Equipment Operator Note From Cheng Sapp: Smartcare visit for [...] Affected toe's examined with images sent to [facility]. Consulted with [facility] Dr. Goddard who said she would put in request to PCP to have patient seen sooner to address issues and get possible xray of the foot. Reviewed red flags for ED. Patient education provided. .................... .................... .................... .................... .................... .................... .................... . Disposition: Yvonne Goddard MD [address] [facility],[address], [place], [address], [employer] 11/02/2023 15:00:39 01/23/2024 text/html HPI: anxiety, chronic [...] CRC RN DID NOT NEED FURTHER INFO Shotblast Equipment Operator Organization Information for Dallin Lawrence [employer]: [facility] Address: [address] [place] [address], [place] Aceves [address], Armature Winder Repairer: Kehinde Canela MD [facility] No.: [id number] Shotblast Equipment Operator POC Test Results from Dallin Lawrence - [facility] Blood Glucose Measurement (17:15:08) Blood Glucose: 328 mg/dL .................... .................... .................... .................... .................... .................... .................... . Shotblast Equipment Operator Note From Dallin Lawrence: Patient conscious and [...] extra heat, discolored discharge, or current bleeding noted.[facility] orders doxycycline 200 mg PO now and will call in more to patient s local pharmacy. Supportive care, including cleaning and use of triple antibiotic ointment discussed. Red flags, and patient education discussed.Note: [id number]. entry level account executive in test section of this report incorrect. Patient s BGL equals 228 MG/DL [facility] Medication Orders: doxycycline hyclate 100 mg tablet: Administered .................... .................... .................... .................... .................... .................... .................... . Disposition: Fulfilled Juan Antonio Sun MD [address] [facility],[address], [place], [address], JOSHUA - JAH CANNON 01/23/2024 20:59:30
--- OUTSIDE RECORDS SUMMARY | 2025-02-13 19:04 | XMS_ITS | Encounter Summary ---
Author Organization [employer] Address [address] [facility] [address] [place] [address] Care Team Providers Care Automatic Developer Name Role Phone Gemini Messer GAURAV Primary Care Provider [phone] Anila Faustin PharmD Unavailable [phone] Encounter Details Date Type Department Care Team (Late st Contact Info) Description 02/13/2025 Orders Only GENERIC EXTERNAL DATA DEPARTMENT Provider, Generic External Data Social History Tobacco Use Types Packs/Day Years [...] t he electric, gas, oil or water [employer] threatened to shut off services in your [...] Description 04/01/2025 2:30 PM EST Medication Management [facility] [address] [place] [address] Puia, Anila, PharmD [address] [place], [place] [phone] documented as of this encounter Goals Goal [...] Care Plan Patient has diabetic neuropathy No Anila Faustin PharmD Weekly blood pressure task Care Plan [...] Hui RN documented as of this encounter Procedures Procedure Name Priority Date/Time Associated Diagnosis Comments XR FOOT 3+ VIEWS RIGHT Routine 6:28 PM EST GLUCOSE, WHOLE BLOOD Routine 02/13/2025 5:12 PM EST CBC WITH AUTO DIFFERENTIAL Routine 02/13/2025 5:12 PM EST SED RATE BY MODIFIED WESTERGREN Routine 02/13/2025 5:12 PM EST C-REACTIVE PROTEIN Routine 02/13/2025 5: 12 PM EST LACTIC ACID Routine 02/13/2025 5:12 PM EST COMPREHENSIVE METABOLIC PANEL Routine 02/13/2025 5:12 PM EST documented in this encounter Results * XR Foot 3+ Views Right (02/13/2025 6:28 PM EST) Anatomical Region Laterality Modality Lower Extremities, Foot Right Radiogra phic Imaging 02/13/2025 6:28 PM EST Narrative 02/13/2025 6:29 PM EST [place] [address] XRay Report Signed Patient: Mckinley Berry MR#: [id number] 2031 : 1965 Acct:[id number] Age/Sex: 59 / M ADM Date: 02/13/25 Loc: HO.ED Attending Dr: Ordering Physician: Escobar Parker Date of Service: 02/13/25 Procedure(s): XR foot RT min 3V Accession Number(s): [id number] cc: Gemini Messer; Escobar Parker Reason for Exam: Right toe erythema, swollen. osteo? CLINICAL HISTORY: Right toe erythema, swollen. osteo? 3 views right foot Comparison: 03/25/2024 Findings: No fractures or dislocations. No joint effusion. There is 3rd digit soft tissue swelling. There is resorption of the tuft of the 3rd distal phalanx, concerning for osteomyelitis. There is also resorption or prior resection of the distal aspect of the 2nd distal phalanx, suggesting interval partial amputation versus sequela of osteomyelitis as well. No other radiographic evidence of osteomyelitis. Impression: 1. Third digit soft tissue swelling and resorption of the tuft of the 3rd distal phalanx is concerning for osteomyelitis of the 3rd distal phalanx. 2. Resorption versus interval resection of the distal aspect of the 2nd distal phalanx, as described above. This document has been electronically signed by: Jeff Otto MD on 02/13/2025 18:28:57 Dictated By: Jeff Otto MD Signed By: <Electronically signed by Jeff Otto MD in OV> 02/13/251828 DD/ 27 TD/TT: 02/13/251827 Chain Link Fence Installer: Procedure Note Hilarioter, Image - 02/13/2025 [place] [address] XRay Report Signed Patient: Mckinley Berry [facility]#: [id number] 2031 : 1965Acct:[id number] Age/Sex: 59 / MADM Date: 02/13/25 Loc: HO.ED Attending Dr: Ordering Physician: Escobar Parker Date of Service: 02/13/25 Procedure(s): XR foot RT min 3V Accession Number(s): [id number] cc: Gemini Messer; Escobar Parker Reason for Exam: Right toe erythema, swollen. osteo? CLINICAL HISTORY: Right toe erythema, swollen. osteo? 3 views right foot Comparison: 03/25/2024 Findings: No fractures or dislocations. No joint effusion. There is 3rd digit soft tissue swelling. There is resorption of the tuft of the 3rd distal phalanx, concerning for osteomyelitis. There is also resorption or prior resection of the distal aspect of the 2nd distal phalanx, suggesting interval partial amputation versus sequela of osteomyelitis as well. No other radiographic evidence of osteomyelitis. Impression: 1. Third digit soft tissue swelling and resorption of the tuft of the 3rd distal phalanx is concerning for osteomyelitis of the 3rd distal phalanx. 2. Resorption versus interval resection of the distal aspect of the 2nd distal phalanx, as described above. This document has been electronically signed by: Jeff Otto MD on 02/13/2025 18:28:57 Dictated By: Jeff Otto MD Signed By: <Electronically signed by Jeff Otto MD in OV> 02/13/251828 DD/ 27 TD/TT: 02/13/251827 Chain Link Fence Installer: [facility] External Provider IMG XR PROCEDURES Final Result * (ABNORMAL) Sed Rate by Modified Kyleren (02/13/2025 5:12 PM EST) Pathologist [facility] Erythrocyte Sedimentation Rate 77(H) 0 - 15 MM/HR [facility] Comment:Patients with polycy themia and many hemoglobin abnormalitiesmay have depressed sed rates whereas patients with anemiamay have elevated sed rates. 02/13/2025 5:12 PM EST 02/13/2025 5:16 PM EST Generic External Data Provider LAB BLOOD ORDERAB LES Final Result Performing Organization Address [facility]/ZIP Co de Phone Number [facility] [address] [place] [phone] * (ABNORMAL) C-reactive Protein (02/13/2025 5:12 PM EST) [facility] C Reactive Protein 8.07(H) < or = 0.50 mg/dL [facility] 02/13/2025 5:12 PM EST 02/13/2025 5:16 PM EST Generic External Data Provider LAB BLOOD ORDERAB LES Final Result Performing Organization Address [facility] Co de Phone Number [facility] [address] [place] [phone] * (ABNORMAL) Comprehensive Metabolic Panel (02/13/2025 5:12 PM EST) [facility] Sodium 135 135 - 145 mmol/L [facility] Potassium 4.6 3.3 - 5.1 mmol/L [facility] Chloride 98 96 - 108 mmol/L [facility] Carbon Dioxide 30(H) 22 - 29 mmol/L [facility] Anion Gap 12 12 - 20 [facility] Urea Nitrogen (BUN) 17(H) 9 - 16 mg/dL [facility] Creatinine, Serum 0.88 0.5 - 1.4 mg/dL [facility] Creatinine Clr Calc Pharmacy 114.2 [facility] Comment:eGFR (calculated fro m the MDRD study equation) and eCrCl(calculated from the Cockcroft-Gault equation) are based ondifferent parameters and may not yield comparable results.If eCrCl result is absurd, please check patient'sheight/weight. Estimated Glomerular Filt Rate >60 [facility] Comment:Chronic Kidney Disea se: Estimated GFR < 60 mL/min/1.13t1Yybybc Kidney Disease: Estimated GFR < 15 mL/min/1.73m2 Glucose 122(H) 60 - 115 mg/dL [facility] Calcium 9.5 8.4 - 10.2 mg/dL [facility] Bilirubin, Total 0.2 0.0 - 1.0 mg/dL [facility] Aspartate Amino Transferase 17 5 - 37 U/L [facility] Alanine Aminotransferase 16 0 - 40 U/L [facility] Total Protein 7.7 6.5 - 8.0 g/dL [facility] Albumin Level 4.2 3.5 - 5.0 g/dL [facility] Alkaline Phosphatase 84 39 - 117 U/L [facility] 02/13/2025 5:12 PM EST 02/13/2025 5:16 PM EST Generic External Data Provider LAB BLOOD ORDERAB LES Final Result Performing Organization Address [facility] Co de Phone Number [facility] [address] [place] [phone] Lactic Acid (02/13/2025 5:12 PM EST) Lactic Acid 0.6 0.5 - 2.0 mmol/L [facility] 02/13/2025 5:12 PM EST 02/13/2025 5:16 PM EST Generic External Data Provider LAB BLOOD ORDERAB LES Final Result Performing Organization Address [facility] Co de Phone Number [facility] [address] [place] [phone] * (ABNORMAL) CBC auto differential (02/13/2025 5:12 PM EST) White Blood Count 9.9 4.8 - 10.8 X10*3/uL [facility] Red Blood Count 4.14(L) 4.60 - 5.80 X10*6/uL [facility] Hemoglobin 11.9(L) 14.0 - 18.0 g/dl [facility] Hematocrit 35.3(L) 42.0 - 52.0 % [facility] Mean Corpuscular Volume 85.3 80.0 - 98.0 fL [facility] Mean Corpuscular Hemoglobin 28.7 27.0 - 33.0 pg [facility] Mean Corpuscular HGB Conc 33.7 31.0 - 36.0 g/dl [facility] Red Cell Distribution Width 12.5 11.0 - 16.0 % [facility] Platelet Count 254 160 - 400 X10*3/uL [facility] Mean Platelet Volume 10.3 9.4 - 12.4 fL [facility] Neutrophils Percent Auto 67.4 45 - 73 % [facility] Imm Gran Pct Auto 0.3 0.0 - 0.4 % [facility] Lymphocytes Percent Auto 17.6(L) 20 - 40 % [facility] Monocytes Percent Auto 12.0(H) 2 - 11 % [facility] Eosinophils Percent Auto 2.3 0 - 4 % [facility] Basophils Percent Auto 0.4 0 - 2 % [facility] NRBC Pct Auto 0.0 0.0 - 0.2 /100WBC [facility] Neutrophils Absolute Auto 6.7 2.0 - 8.3 x10*3/uL [facility] Imm Gran Abs Auto 0.03 0.00 - 0.03 X10*3/uL [facility] Lymphocytes Absolute Auto 1.8 1.2 - 4.9 X10*3/uL [facility] Monocytes Absolute Auto 1.2 0.1 - 1.2 X10*3/uL [facility] Eosinophils Absolute Auto 0.2 0.0 - 0.4 X10*3/uL [facility] Basophils Absolute Auto 0.0 0.0 - 0.2 X10*3/uL [facility] NRBC Abs Auto 0.000 0.0 - 0.012 X10*3/uL [facility] 02/13/2025 5:12 PM EST 02/13/2025 5:16 PM EST us Generic External Data Provider LAB BLOOD ORDERAB LES Final Result Performing Organization Address City/[facility]/ZIP Co de Phone Number [facility] [address] [place] [phone] * (ABNORMAL) Glucose, Whole Blood (02/13/2025 5:12 PM EST) Glucose, Whole Blood 120(H) 60 - 115 mg/dL [facility] Comment:METER #: [id number] 02/13/2025 5:12 PM EST 02/13/2025 5:16 PM EST us Generic External Data Provider LAB BLOOD ORDERAB LES Final Result Performing Organization Address [facility] Co de Phone Number [facility] [address] [place] [phone] documented in this encounter Visit Diagnoses Not [...] Assessment Noted Time PHQ-9 Depression Total Score: 025 1:12 PM EST documented as of this encounter Care Teams Automatic Developer Relationship Specialty Start Date End Date Gemini Messer NP [address] [place] [address] PCP - General Family Medicine 02/08/24 Anila Faustin PharmD [address] [place] [address] Pharmacist Internal Medicine 06/05/24 [facility] 07/23/24 documented as of this encounter
--- OUTSIDE RECORDS SUMMARY | 2025-02-13 19:04 | XMS_ITS | Encounter Summary ---
Author Organization [employer] Address [address] [facility] [address] [place] [address] Care Team Providers Care Hoop Puncher Name Role Phone Ruthie SchwarzP Primary Care Provider [phone] Yamile Ramsay [employer] Primary Care Provider [phone] Gemini Messer CARD HAND Primary Care Provider [phone] PuAnila ying PharmD Unavailable Encounter Details Date Type Department Care Team (Late st Contact Info) Description 05/25/2022 Orders Only [facility] [address] [place] [address] Payton Knutson LPN Social History Tobacco Use [...] Description 04/01/2025 2:30 PM EST Medication Management [facility] [address] [place] [address] PuiaRickieAnila, PharmD [address] [place] [address] documented as of this encounter Visit Diagnoses Not on filedocumented in this encounter Care Teams Hoop Puncher Relationship Specialty Start Date End Date Ruthie Schwarz FNP [address] [place] [address] PCP - General Family Medicine 11/25/21 01/23/24 Yamile Ramsay FNP [address] [place] [address] PCP - General Family Medicine 01/24/24 02/01/24 Gemini Messer NP [address] [place] [address] PCP - General Family Medicine 02/08/24 Anila Faustin PharmD [address] [place] [phone] Pharmacist Internal Medicine 06/05/24 [facility] 07/23/24 documented as of this encounter
--- OUTSIDE RECORDS SUMMARY | 2025-02-13 19:04 | XMS_ITS | Clinical Summary ---
Author Organization [employer] Address [address] [facility] [address] [place] [address] Care Team Providers Care Editorial Writer Name Role Phone Gemini Messer NP Primary Care Provider [phone] Anila Faustin PharmD Unavailable [phone] Allergies Active Allergy Reactions Criticality Noted Date Comments Hornet Venom Anaphylaxis High 04/07/2016 Lanolin Rash Low 05/23/2018 Other reaction(s): Rash, Rash Raspberry Anaphylaxis High 04/07/2016 Tadalafil Swelling High 12/24/2015 Other reaction(s): throat closes up, can't breathe Medications hydrOXYzine pamoate (Vistaril) 50 MG capsule TAKE 1 CAPSULE BY MOUTH THREE TIMES DAILY NEEDED SEVERE ANXIETY 90 capsule 03/16/20 23 Active QUEtiapine (SEROquel) 300 MG tablet Take 300 mg by mouth at bedtime. 01/19/20 24 Active sertraline (Zoloft) 100 MG tablet Take 2 tablets by mouth in the morning. 01/19/20 24 Active amitriptyline (Elavil) 50 MG tabletIndicatio ns:Depressive disorder TAKE 1 TABLET BY MOUTH AT BEDTIME 90 tablet 3 03/19/20 24 Active Continuous Glucose Perfume Maker (FreeStyle Lenny 3 [place]) deviceIndicatio ns:Type 2 diabetes mellitus with hyperglycemia, with long-term current use of insulin (HCC) 1 each Once per day. 1 each 05/06/19 25 Active Continuous Glucose Sensor (FreeStyle Lenny 3 Plus Sensor) miscIndications :Type 2 diabetes mellitus with hyperglycemia, with long-term current use of insulin (HCC) 1 each Once per day. Apply 1 sensor every 15 days 2 each 05/06/19 25 Active metFORMIN (Glucophage) 500 MG tablet TAKE 1 TABLET BY MOUTH TWICE DAILY IN THE MORNING AND IN THE EVENING 180 tablet 3 06/15/19 25 Active Aspirin EC Adult Low Dose 81 MG EC tabletIndicatio ns:Other hyperlipidemia, Type 2 diabetes mellitus without complication, with long-term current use of insulin ([facility]) TAKE 1 TABLET BY MOUTH EVERYDAY AT NOON 90 tablet 3 06/15/19 25 Active polyethylene glycol, PEG, 3350 (MiraLax) 17 GM/SCOOP powder Mix 17 grams in 8 oz of water as directed once daily PRN 527 g 2 06/26/19 25 Active Icosapent Ethyl (Vascepa) 1 g capsule Take 2 capsules (2 g) by mouth with breakfast and with evening meal. 120 capsule 06/28/19 25 2025 Active Acetaminophen Extra Strength 500 MG tabletIndicatio ns:Chronic bilateral low back pain without sciatica,Acute pain of both knees TAKE 2 TABLETS BY MOUTH EVERY 8 HOURS NEEDED FOR MILD PAIN 30 tablet 07/19/19 25 Active ibuprofen 600 MG tabletIndicatio ns:Tooth pain TAKE 1 TABLET BY MOUTH EVERY 6 HOURS NEEDED FOR MILD PAIN FOR UP TO 14 DAYS 56 tablet 07/19/19 25 Active fluticasone (Flonase) 50 MCG/ACT nasal spray INSTILL 2 SPRAYS IN EACH NOSTRIL ONCE DAILY 16 g 1 07/24/19 25 Active glucose blood (FreeStyle Precision Enoch Test) test stripIndication s:Type 2 diabetes mellitus with hyperglycemia, with long-term current use of insulin ([facility]) TEST BG four times daily DIRECTED 100 each 07/31/19 25 2025 Active TRUEplus Lancets 33G miscIndications :Type 2 diabetes mellitus with hyperglycemia, with long-term current use of insulin ([facility]) TEST BLOOD SUGAR FOUR TIMES DAILY 100 each 07/31/19 25 Active polyvinyl alcohol (Liquifilm Tears) 1.4 % ophthalmic solutionIndicat ions:Dry eyes, bilateral Administer 1 drop into both eyes if needed for dry eyes. 15 mL 6 08/17/19 25 Active glucose 4 g chewable tablet Chew 4 tablets (16 g) if needed for low blood sugar. (BG < 70 mg/dL). Recheck BG after 15 mins and repeat treatment if needed 2 tablet 5 08/31/19 25 2025 Active insulin glargine (Lantus SoloStar) 100 UNIT/ML penIndications: Type 2 diabetes mellitus treated with insulin ([facility]) Inject 18 Units under the skin in the morning. 15 mL 5 08/31/19 25 Active insulin pen needle (TechLite Plus Pen [place]) 32G x 4 mm miscIndications :Diabetic nephropathy associated with type 2 diabetes mellitus (HCC) Use once daily for insulin injection, as instructed 100 each 08/31/19 25 Active senna-docusate sodium (Senokot-S) 8.6-50 MG tablet Take 1 tablet by mouth at bedtime. 30 tablet 11 08/31/19 25 2025 Active ketorolac (Acular) 0.5 % ophthalmic solution 09/13/19 25 Active simvastatin (Zocor) 40 MG tablet TAKE 1 TABLET BY MOUTH EVERY EVENING 90 tablet 1 10/08/19 25 Active Wixela Inhub 500-50 MCG/ACT aerosol powder INHALE 1 PUFF BY MOUTH TWICE DAILY, RINSE MOUTH AFTER USING. 60 each 10/17/19 25 Active Alcohol Swabs (Alcohol Prep) 70 % padsIndications :Type 2 diabetes mellitus with hyperglycemia, unspecified whether terminal superintendent insulin use (HCC) USE DIRECTED TEST BLOOD SUGAR & INJECTING INSULIN 200 each 11/13/19 25 Active naloxone (Narcan) 4 mg/0.1 mL nasal spray FOR SUSPECTED OPIOID OVERDOSE. SPRAY 0.1mL IN ONE NOSTRIL. REPEAT IN ALTERNATE NOSTRIL 2-3 MINUTES IF NEEDED. SEEK MEDICAL ATTENTION IMMEDIATELY EVEN IF PATIENT RESPONDS. 11/05/19 25 Active Ventolin HFA 108 (90 Base) MCG/ACT inhalerIndicati ons:Moderate asthma, unspecified whether complicated, unspecified whether persistent INHALE 2 PUFFS BY MOUTH EVERY 4 HOURS NEEDED FOR WHEEZING OR SHORTNESS OF BREATH 18 g 3 12/25/19 25 Active omeprazole (PriLOSEC) [address] capsule TAKE 1 CAPSULE BY MOUTH TWICE DAILY IN THE MORNING AND IN THE EVENING 180 capsule 2 01/07/20 25 Active carvedilol (Coreg) 12.5 MG tabletIndicatio ns:Primary hypertension TAKE 1 TABLET BY MOUTH TWICE DAILY IN THE MORNING AND IN THE EVENING WITH FOOD 180 tablet 1 01/31/20 25 Active loratadine (Claritin) 10 MG tablet TAKE 1 TABLET BY MOUTH EVERYDAY AT NOON 90 tablet 1 10/30/20 25 Active glipiZIDE (Glucotrol) 10 MG tabletIndicatio ns:Type 2 diabetes mellitus with hyperglycemia, unspecified whether snf insulin use (HCC) TAKE 1 TABLET BY MOUTH TWICE DAILY IN THE MORNING AND IN THE EVENING BEFORE MEALS 180 tablet 1 02/06/20 25 Active gabapentin (Neurontin) 800 MG tabletIndicatio ns:Type 2 diabetes mellitus treated with insulin ([facility]) TAKE 1 TABLET BY MOUTH THREE TIMES DAILY IN THE MORNING, EVENING, AND BEDTIME 90 tablet 1 02/06/20 25 Active Tirzepatide (Mounjaro) 10 MG/0.5ML solution auto-injectorIn dications:Type 2 diabetes mellitus with hyperglycemia, with long-term current use of insulin ([facility]) Inject 10 mg under the skin 1 (one) time per week. 2 mL 02/14/20 25 Active carvedilol (Coreg) 12.5 MG tabletIndicatio ns:Primary hypertension TAKE 1 TABLET BY MOUTH TWICE DAILY IN THE MORNING AND IN THE EVENING WITH FOOD 180 tablet 1 08/09/19 25 2024 Discontinued glipiZIDE (Glucotrol) 10 MG tabletIndicatio ns:Type 2 diabetes mellitus with hyperglycemia, unspecified whether terminal superintendent insulin use (HCC) TAKE 1 TABLET BY MOUTH TWICE DAILY IN THE MORNING AND IN THE EVENING BEFORE MEALS 180 tablet 1 08/09/19 25 2024 Discontinued loratadine (Claritin) 10 MG tablet TAKE 1 TABLET BY MOUTH EVERYDAY AT NOON 90 tablet 1 08/09/19 25 2024 Discontinued gabapentin (Neurontin) 800 MG tabletIndicatio ns:Type 2 diabetes mellitus treated with insulin ([facility]) TAKE 1 TABLET BY MOUTH THREE TIMES DAILY IN THE MORNING, EVENING, AND BEDTIME 90 tablet 1 12/04/19 25 2024 Discontinued Tirzepatide (Mounjaro) 7.5 MG/0.5ML solution auto-injectorIn dications:Type 2 diabetes mellitus with hyperglycemia, with long-term current use of insulin ([facility]) Inject 7.5 mg under the skin 1 (one) time per week. 2 mL 01/15/20 25 2024 Discontinued(D ose adjustment) predniSONE (Deltasone) 20 MG tabletIndicatio ns:Moderate persistent asthma with (acute) exacerbation Take 2 tablets (40 mg) by mouth Once per day for 5 days. 10 tablet 01/16/20 25 2024 Active Problems Problem Noted Date Diagnosed Date Screening for colon cancer 07/25/2024 Assessment & Plan (07/25/2024 11:32 AM EDT): -patient agreeable to screening with cologuard -counseled on 13% false positive and 8% false negative rate and is aware that if the test is positive a diagnostic colonoscopy should be pursued within 3-6 months. -patient informed of need to repeat test in 3 years if negative result -cologuard order placed Osteomyelitis of foot ([facility]) 06/03/2024 Assessment & Plan (07/25/2024 11:29 AM EDT): -MRI confirming osteomyelitis infection discussed with patient. Discussed outpatient management with oral antibiotic as patient's lifestyle does not allow for in- patient treatment at this time. -started Augmentin 872-125 mg and doxycycline 100 mg two times daily. Will consult with ID for clarity on length of treatment. Patient verbalizes understanding and agrees with plan Assessment & Plan (06/03/2024 2:33 PM EST): -bilateral feet with noticeable improvements -will continue oral antibiotics for an additional 14 days while conferring with ID appropriate length of therapy before repeat imagine Acute pain of both knees 05/23/2024 Assessment [...] use of insulin 05/22/2024 Assessment & Plan (07/25/2024 11:25 AM EDT): -not at goal with POCT A1c 10.9% today and POCT glucose 500 mg/dL. Patient is asymptomatic. Urine dipstick w/o evidence of ketones in urine. He is administered 10 U lispro in clinic today which brought his glucose level down to 358 mg/dL. -Lipids and albumin levels within acceptable range at this time -diabetic diet discussed in detail -stressed importance of consistent home monitoring. Ordered CGM to assist with this -patient is [facility] program for diabetes mellitus management Assessment & Plan (06/03/2024 2:41 PM EST): -patient is scheduled with clinical pharmacist Anila on 06/05 for diabetes mellitus management. Will defer changes to his regimen at this time until then -he is encouraged to bring his CGM supplies to that visit for education -continue current regimen -diet and lifestyle modifications re-enforced; foot exam completed today -will ask DME team to investigate process on his diabetic shoes Assessment & Plan (05/22/2024 12:12 PM EST): [...] at subsequent visits Ulcer of both feet ([facility]) 02/20/2024 Assessment & Plan (05/22/2024 12:17 PM [...] with PCP Stage 3 chronic kidney disease ([facility]) 021 03/22/2023 Hyperkalemia 07/02/2020 03/22/2023 Diabetic nephropathy associa alex with type 2 diabetes mellitus 07/02/2020 03/22/2023 Forgetfulness 06/30/2017 03/22/2023 Disease related peripheral neuropathy 02/10/2017 03/22/2023 Perforation of nasal septum 02/05/2015 12 Obesity 02/05/2015 03/22/2023 Nondependent opioid abuse in remission 5 03/22/2023 Mixed, or nondependent drug abuse, episodic (CMS /HCC) 02/05/2015 03/22/2023 Hyperlipidemia associated with type 2 diabetes m ellitus 02/05/2015 03/22/2023 Essential hypertension 02/05/2015 Assessment & Plan (07/25/2024 11:34 AM EDT): -Stable; BP at goal of <130/80 mmHg -Continue carvedilol 12.5 mg two times daily Assessment & Plan (06/03/2024 2:25 PM EST): -Stable; BP at goal of <130/80 mmHg -Continue carvedilol 12.5 mg two times daily Assessment & Plan (05/22/2024 9:33 AM EST): [...] Encounters Date Type Department Care Team Description 02/13/2025 3:20 PM EST Office Visit [facility] [address] [place] [phone] Suzy Escobar MD Diabetic infection of right foot (HCC) (Primary Dx) 02/13/2025 Orders Only GENERIC EXTERNAL DATA DEPARTMENT Provider, Generic External Data 02/13/2025 Telephone [facility] [address] [place] [address] Dominique Hui, TOILET ATTENDANT Expect 02/13/2025 Travel 02/05/2025 Refill [facility] [address] [place] [address] Gemini Messer NP Type 2 diabetes mellitus with hyperglycemia, unspecified whether terminal superintendent insulin use (HCC); Type 2 diabetes mellitus treated with insulin (HCC) 01/30/2025 Refill [facility] [address] [place] [address] Gemini Messer NP Primary hypertension 01/14/2025 Refill [facility] [address] [place] [address] Gemini Messer NP Moderate persistent asthma with (acute) exacerbation 01/14/2025 Travel 01/11/2025 11:40 AM EDT Office Visit [facility] [address] [place] [phone] Frank Purdy MD Moderate persistent asthma with (acute) exacerbation (Primary Dx) 01/11/2025 Travel 01/06/2025 Refill [facility] [address] [place] [phone] Gemini Messer NP 12/23/2024 Refill [facility] [address] [place] [phone] Gemini Messer NP Moderate asthma, unspecified whether complicated, unspecified whether persistent 12/06/2024 3:30 PM EDT Office Visit [facility] [address] [place] [address] Michael Joe DMD 12/01/2024 Refill [facility] [address] [place] [address] Gemini Messer NP Type 2 diabetes mellitus treated with insulin ([facility]/HCC) 11/22/2024 1:30 PM EDT Office Visit [facility] [address] [place] [address] Michael Joe DMD 11/13/2024 Travel from Last 3 Months Immunizations Immunization Administration Dates Next Due HepB-CpG 11/13/2024,08/30/2024 Influenza injectable quadriv alent IIV4 with preservative 02/21/2018,02/10/2017,01/13/2015 Influenza injectable quadriv alent preservative free 02/14/2023,03/16/2021,01/09/2020,12/25,01/01/2016 Influenza, IIV3, injectable 01/10/2024, 6,01/07/2014 Influenza, Split (incl. misti fied surface antigen) 02/04/2013,02/17/2012 Influenza, injectable, quadr ivalent, preservative free, pediatric 12/23/2015 Influenza, seasonal, injecta ble, preservative free 01/14/2025 Pfizer Covid-19 Vaccine 12+ 01/14/2025, Pneumococcal Conjugate PCV 20 06/25/2024 Pneumococcal Polysaccharide PPSV23 08/13/2013 Tdap 08/13/2013 Zoster, [...] Mass Index 33.12 02/13/2025 3:46 PM EST Plan of Treatment Upcoming Encounters Date Type Department Care Team (Late st Contact Info) Description 04/01/2025 2:30 PM EST Medication Management [facility] [address] [place], [place] [phone] Anila Faustin, PharmD [address] [place] [address] Health Maintenance Due Date Last Done Comments CT Colonography 1965 Colonoscopy 1965 Colorectal Cancer Screening 1965 Dental Prophylaxis 1965 FIT DNA/Cologuard 1965 FIT 1965 FOBT 1965 HIV Screening 1965 Sigmoidoscopy 1965 Disability Screening 1965 Hepatitis C Screening 1982 RSV Patients and Patients Aged 60 years or older (1 - Risk 50-74 years 1-dose series) 2014 Dental X-Ray: Bitewings 09/11/2015 09/10/19 15, 04/15/2014, 12/24/2013, Additional history exists DTaP/Tdap/Td Vaccines (2 - Td or Tdap) 08/14/2023 08/13/2013 Dental Oral Exam 09/24/2024 03/25/2024, 12/2014, 12/24/2013 Depression Monitoring 10/03/2024 04/05/2024, 025 Alcohol/Substance Use Screening 04/05/2025 04/05/2024 SDOH Screening 04/05/2025 04/05/2024 Diabetes: Hemoglobin A1C 05/16/2025 025, 11/13/2024, 07/30/2024, Additional history exists Diabetes: Foot Exam 06/03/2025 06/03/2024, 06/03/2024, 06/03/2024, Additional history exists Lipid Panel 11/12/2025 11/12/2024, 06/2024, 06/14/2021 Tobacco Screening 02/13/2026 02/13/2025 Eye Exam 08/16/2026 08/16/2024, 0509/2024, 08/16/2024, Additional history exists Dental X-Ray: Full Mouth 03/26/2027 024, 12/24/2013, 12/24/2013 Zoster Vaccines Completed 04/04/2019, 01/29/2019 Pneumococcal Vaccine: 50+ Years Completed 06/25/2024, 08/13/2013 Hepatitis B Vaccines Completed 11/13/2024, 08/31/19 25 COVID-19 Vaccine Completed 01/14/2025, 12/2023, 06/17/2021, Additional history exists Influenza Vaccine Completed 01/14/2025, , 02/14/2023, Additional history exists HIB Vaccines Aged Out No longer eligi ble based on patient's age to complete this topic HPV Vaccines Aged Out No longer eligi ble based on patient's age to complete this topic Hepatitis A Vaccines Aged Out No long er eligible based on patient's age to complete this topic IPV Vaccines Aged Out No longer eligi ble based on patient's age to complete this topic Meningococcal B Vaccine Aged Out No l onger eligible based on patient's age to complete this topic Meningococcal Vaccine Aged Out No dot evens eligible based on patient's age to complete this topic RSV under 20 months Aged Out No longe r eligible based on patient's age to complete this topic Rotavirus Vaccines Aged Out No longer eligible based on patient's age to complete this topic Goals Goal Patient Goal Type Associated Problems [...] Patient has chronic kidney disease No Puia, Anial, PharmD Help patients manage their type 2 [...] has diabetic neuropathy No Dominique Hui RN Procedures Procedure Name Priority Date/Time Associated Diagnosis Comments XR FOOT 3+ VIEWS RIGHT Routine 6:28 PM EST SED RATE BY MODIFIED WESTERGREN Routine 02/13/2025 5:12 PM EST C-REACTIVE PROTEIN Routine 02/13/2025 5: 12 PM EST COMPREHENSIVE METABOLIC PANEL Routine 02/13/2025 5:12 PM EST LACTIC ACID Routine 02/13/2025 5:12 PM EST CBC WITH AUTO DIFFERENTIAL Routine 02/13/2025 5:12 PM EST GLUCOSE, WHOLE BLOOD Routine 02/13/2025 5:12 PM EST POCT GLYCATED HEMOGLOBIN, TOTAL Routine 02/13/2025 3:11 PM EST Type 2 diabetes mellitus with hyperglycemia, with long-term current use of insulin ([facility]) CASE PRESENTATION, DETAILED AND EXTENSIVE TREATMENT PLANNING Routine 12/06/2024 3:30 PM EDT Fred COMPLETE DENTURE - MANDIBULAR Routine 12/06/2024 3:30 PM EDT Max COMPLETE DENTURE - MAXILLARY Routine 12/06/2024 3:30 PM EDT WAX TRY IN Routine 11/22/2024 1:30 PM EDT POCT GLYCATED HEMOGLOBIN, TOTAL Routine 11/13/2024 3:55 PM EDT Type 2 diabetes mellitus with hyperglycemia, with long-term current use of insulin ([facility]) LIPID PANEL WITH REFLEX TO DIRECT LDL Routine 11/12/2024 10:51 AM EDT PANORAMIC RADIOGRAPHIC IMAGE Routine 03/25/2024 1:00 PM EST PERIODIC ORAL EVALUATION - ESTABLISHED PATIENT Routine 03/25/2024 1:00 PM EST BITEWINGS - 4 RADIOGRAPHIC IMAGES Routine 09/09/2014 12:00 AM EDT from Last 3 Months or Most Recently Relevant to Health Maintenance Results * XR Foot 3+ Views Right (02/13/2025 6:28 PM EST) Anatomical Region Laterality Modality Lower Extremities, Foot Right [facility] 02/13/2025 6:28 PM EST Narrative 02/13/2025 6:29 PM EST [place] [address] XRay Report Signed Patient: Mckinley Berry MR#: [id number] 2031 : 1965 Acct:[id number] Age/Sex: 59 / M ADM Date: 02/13/25 Loc: HO.ED Attending Dr: Ordering Physician: Escobar Parker Date of Service: 02/13/25 Procedure(s): XR foot RT min 3V Accession Number(s): [id number] cc: Gemini Messer; Escobar Parker Reason for [...] in OV> 02/13/251828 DD/ 27 TD/TT: 02/13/251827 Bead Machine Operator: Procedure Note Donotuseinterpreter, Image - 02/13/[address] [address] XRay Report Signed Patient: Mckinley Berry [facility]#: [id number] 2031 : 1965Acct:[id number] Age/Sex: 59 / MADM Date: 02/13/25 Loc: .ED Attending Dr: Ordering Physician: Escobar Parker Date of Service: 02/13/25 Procedure(s): XR foot RT min 3V Accession Number(s): [id number] cc: Gemini Messer; Escobar Parker Reason for [...] in OV> 02/13/251828 DD/ 27 TD/TT: 02/13/251827 Bead Machine Operator: [facility] External Provider IMG XR PROCEDURES Final Result * (ABNORMAL) Glucose, Whole Blood (02/13/2025 5:12 PM EST) Pathologist [facility] Glucose, Whole Blood 120(H) 60 - 115 mg/dL [facility] Comment:METER #: [id number] 02/13/2025 5:12 PM EST 02/13/2025 5:16 PM EST Generic External Data Provider LAB BLOOD ORDERAB LES Final Result [facility] [address] [place] [phone] * (ABNORMAL) CBC auto differential (02/13/2025 5:12 PM EST) Pathologist [facility] White Blood Count 9.9 4.8 - 10.8 X10*3/uL [facility] Red Blood Count 4.14(L) 4.60 - 5.80 X10*6/uL [facility] Hemoglobin 11.9(L) 14.0 - 18.0 g/dl [facility] Hematocrit 35.3(L) 42.0 - 52.0 % [facility] Mean Corpuscular Volume 85.3 80.0 - 98.0 fL [facility] Mean Corpuscular Hemoglobin 28.7 27.0 - 33.0 pg [facility] Mean Corpuscular HGB Conc 33.7 31.0 - 36.0 g/dl [facility] Red Cell Distribution Width 12.5 11.0 - 16.0 % [facility] Platelet Count 254 160 - 400 X10*3/uL [facility] Mean Platelet Volume 10.3 9.4 - 12.4 fL [facility] Neutrophils Percent Auto 67.4 45 - 73 % [facility] Imm Gran Pct Auto 0.3 0.0 - 0.4 % [facility] Lymphocytes Percent Auto 17.6(L) 20 - 40 % [facility] Monocytes Percent Auto 12.0(H) 2 - 11 % [facility] Eosinophils Percent Auto 2.3 0 - 4 % [facility] Basophils Percent Auto 0.4 0 - 2 % [facility] NRBC Pct Auto 0.0 0.0 - 0.2 /100WBC [facility] Neutrophils Absolute Auto 6.7 2.0 - 8.3 x10*3/uL [facility] Imm Gran Abs Auto 0.03 0.00 - 0.03 X10*3/uL [facility] Lymphocytes Absolute Auto 1.8 1.2 - 4.9 X10*3/uL [facility] Monocytes Absolute Auto 1.2 0.1 - 1.2 X10*3/uL [facility] Eosinophils Absolute Auto 0.2 0.0 - 0.4 X10*3/uL [facility] Basophils Absolute Auto 0.0 0.0 - 0.2 X10*3/uL [facility] NRBC Abs Auto 0.000 0.0 - 0.012 X10*3/uL [facility] 02/13/2025 5:12 PM EST 02/13/2025 5:16 PM EST us Generic External Data Provider LAB BLOOD ORDERAB LES Final Result [facility] [address] [place] [phone] * (ABNORMAL) Sed Rate by Modified Michael (02/13/2025 5:12 PM EST) Erythrocyte Sedimentation Rate 77(H) 0 - 15 MM/HR [facility] Comment:Patients with polycy themia and many hemoglobin abnormalitiesmay have depressed sed rates whereas patients with anemiamay have elevated sed rates. 02/13/2025 5:12 PM EST 02/13/2025 5:16 PM EST Generic External Data Provider LAB BLOOD ORDERAB LES Final Result Performing Organization Address [facility] Co de Phone Number [facility] [address] [place] [phone] * (ABNORMAL) C-reactive Protein (02/13/2025 5:12 PM EST) C Reactive Protein 8.07(H) < or = 0.50 mg/dL [facility] 02/13/2025 5:12 PM EST 02/13/2025 5:16 PM EST Generic External Data Provider LAB BLOOD ORDERAB LES Final Result Performing Organization Address [facility] Co de Phone Number [facility] [address] [place] [phone] * Lactic Acid (02/13/2025 5:12 PM EST) Lactic Acid 0.6 0.5 - 2.0 mmol/L [facility] 02/13/2025 5:12 PM EST 02/13/2025 5:16 PM EST Generic External Data Provider LAB BLOOD ORDERAB LES Final Result Performing Organization Address [facility] de Phone Number [facility] [address] [place] [phone] * (ABNORMAL) Comprehensive Metabolic Panel (02/13/2025 5:12 PM EST) Sodium 135 135 - 145 mmol/L [facility] Potassium 4.6 3.3 - 5.1 mmol/L [facility] Chloride 98 96 - 108 mmol/L [facility] [facility] Carbon Dioxide 30(H) 22 - 29 mmol/L [facility] Anion Gap 12 12 - 20 [facility] Urea Nitrogen (BUN) 17(H) 9 - 16 mg/dL [facility] Creatinine, Serum 0.88 0.5 - 1.4 mg/dL [facility] Creatinine Clr Calc Pharmacy 114.2 [facility] Comment:eGFR (calculated fro m the MDRD study equation) and eCrCl(calculated from the Cockcroft-Gault equation) are based ondifferent parameters and may not yield comparable results.If eCrCl result is absurd, please check patient'sheight/weight. Estimated Glomerular Filt Rate >60 [facility] Comment:Chronic Kidney Disea se: Estimated GFR < 60 mL/min/1.55n6Uhegpa Kidney Disease: Estimated GFR < 15 mL/min/1.73m2 Glucose 122(H) 60 - 115 mg/dL [facility] Calcium 9.5 8.4 - 10.2 mg/dL [facility] Bilirubin, Total 0.2 0.0 - 1.0 mg/dL [facility] Aspartate Amino Transferase 17 5 - 37 U/L [facility] Alanine Aminotransferase 16 0 - 40 U/L [facility] Total Protein 7.7 6.5 - 8.0 g/dL [facility] Albumin Level 4.2 3.5 - 5.0 g/dL [facility] Alkaline Phosphatase 84 39 - 117 U/L [facility] 02/13/2025 5:12 PM EST 02/13/2025 5:16 PM EST us Generic External Data Provider LAB BLOOD ORDERAB LES Final Result [facility] [address] [place] [address] [phone] * (ABNORMAL) POCT Hgb A1c (02/13/2025 3:11 PM EST) Only the most recent of2 resultswithin the time period is included. Hemoglobin A1C 9.4(A) 4.0 - 5.7 % Blood 02/13/2025 3:11 PM EST us Gemini Messer SH[facility]NER POINT OF CARE TEST ENTER/EDIT O RDERABLES Final Result * (ABNORMAL) Lipid Panel with Reflex to Direct LDL (11/12/2024 10:51 AM EDT) Triglycerides 224(H) <150 mg/dL [facility] Comment:Desirable Triglyceri de: less than 150 mg/dLBorderline High Triglyceride 150-199 mg/dLHigh Triglyceride: 200-499 mg/dLVery High Triglyceride: greater than or equal to 5OO mg/dL Cholesterol 133 <200 mg/dL [facility] Comment:Desirable Cholestero l: less than 200 mg/dLBorderline High Cholesterol: 200-239 mg/dLHigh Cholesterol: greater than 239 mg/dL LDL Cholesterol Calculated 51 <100 mg/dL [facility] Comment:Desirable LDL: less than 100 mg/dLNear Optimal/Above Optimal LDL: 110- 129 mg/dLBorderline High LDL: 130-159 mg/dLHigh LDL: 160-189 mg/dLVery High LDL: greater than or equal to 190 mg/dL HDL Cholesterol 38(L) >40 mg/dL [facility] Comment:Desirable HDL: great er than 40 mg/dL Note: This HDL assay may give artificially low results in patients with liver disease. 11/12/2024 10:5 1 AM EDT 11/12/2024 1:21 PM EDT us Gemini Messer NP LAB BLOOD ORDERABLES Final Resu lt [facility] [address] [place] [phone] from Last 3 Months or Most Recently Relevant to Health Maintenance Additional Health Concerns Active Problems Noted Date [...] neuropathy 02/13/2025 Patient has diabetic neuropathy 02/13/2025 Insurance [facility] < 65 SYLVAI NGUYEN [id number] * Guarantor: Mckinley Berry Account Type Relation to Patient Date of Phone Billing Address Personal/Family Self [address] [place] Care Teams Editorial Writer Relationship Specialty Start Date End Date Gemini Messer NP [address] [place] [address] PCP - General Family Medicine 02/08/24 Anila Faustin PharmD [address] [place] [address] Pharmacist Internal Medicine 06/05/24 [facility] Care 07/23/24
--- OUTSIDE RECORDS SUMMARY | 2025-02-13 19:04 | XMS_ITS | Encounter Summary ---
Author Organization [employer] Address [address] [place] [address] 7t [place] [address] Care Team Providers Care Poultry Slaughterer Name Role Phone Deepakkatharine Ruthie SOLAR FABRICATION TECHNICIAN Primary Care Provider [phone] Yamile Ramsay SOLAR FABRICATION TECHNICIAN Primary Care Provider [phone] Gemini Messer [place] Primary Care Provider [phone] PuiaElisa PharmD Unavailable Reason for Visit * Reason Comments Med Refill Encounter Details Date Type Department Care Team (Late st Contact Info) Description 01/18/2024 Refill [facility] [address] [place], [place] [phone] Ruthie Schwarz FNP [address] [place], [place] [phone] Type 2 diabetes mellitus treated with insulin ([facility]) Social History Tobacco Use Types [...] Description 04/01/2025 2:30 PM EST Medication Management [facility] [address] [place] [address] Puia, Anila, PharmD [address] [place], [place] [phone] documented as of this encounter Visit Diagnoses Diagnosis Type 2 diabetes mellitus treated with insulin (HCC) documented in this encounter Care Teams Poultry Slaughterer Relationship Specialty Start Date End Date Ruthie Schwarz FNP [address] [place] [address] PCP - General Family Medicine 11/25/21 01/23/24 Yamile Ramsay FNP [address] [place] [address] PCP - General Family Medicine 01/24/24 02/01/24 Gemini Messer NP [address] [place] [address] PCP - General Family Medicine 02/08/24 Anila Faustin PharmD [address] [place] [address] Pharmacist Internal Medicine 06/05/24 [facility] 07/23/24 documented as of this encounter
--- OUTSIDE RECORDS SUMMARY | 2025-02-13 19:04 | XMS_ITS | Encounter Summary ---
Author Organization [employer] Address [address] [facility] 7t [place] [address] Care Team Providers Care Tractor Operator Battery Name Role Phone Gemini Messer NP Primary Care Provider [phone] Anila Faustin PharmD Unavailable [phone] Reason for Visit * Reason Comments Med Refill Encounter Details Date Type Department Care Team ([facility] st Contact Info) Description 07/11/2024 Refill [facility] [address] [place] [address] Gemini Messer NP [address] [place] [address] Pain Social History Tobacco Use Types Packs/Day Years [...] Description 04/01/2025 2:30 PM EST Medication Management [facility] [address] [place] [address] Anila Faustin PharmD [address] [place] [address] documented as of this encounter Visit Diagnoses Diagnosis Pain Generalized pain documented in this encounter Additional Health Concerns Assessment Noted Time PHQ-9 Depression Total Score: 11 025 1:12 PM EST documented as of this encounter Care Teams Tractor Operator Battery Relationship Specialty Start Date End Date Gemini Messer NP [address] [place] [address] PCP - General Family Medicine 02/08/24 Anila Faustin PharmD [address] [place] [address] Pharmacist Internal Medicine 06/05/24 [facility] Care 07/23/24 documented as of this encounter
--- OUTSIDE RECORDS SUMMARY | 2025-02-13 19:04 | XMS_ITS | Encounter Summary ---
Author Organization [employer] Address [address] [facility] 7t [place] [address] Care Team Providers Care Masking Machine Feeder Name Role Phone Ruthie Schwarz Primary Care Provider [phone] Yamile Ramsay CHIEF MEDIA OFFICER Primary Care Provider [phone] Gemini Messer CAPSULE FILLER Primary Care Provider [phone] Anila Faustin PharmD Unavailable Reason for Visit * Reason Onset Date Comments triage 04/27/2022 Encounter Details Date Type Department Care Team ([facility] st Contact Info) Description 04/27/2022 Telephone [facility] [address] [place] [address] Ruthie Schwarz FNP [address] [place], [place] [phone] triage Social History Tobacco Use Types Packs/Day [...] Description 04/01/2025 2:30 PM EST Medication Management [facility] [address] [place] [address] Anila Faustin PharmD [address] [place] [address] documented as of this encounter Visit Diagnoses Not on filedocumented in this encounter Care Teams Masking Machine Feeder Relationship Specialty Start Date End Date Ruthie Schwarz FNP [address] [place] [address] PCP - General Family Medicine 11/25/21 01/23/24 Yamile Ramsay FNP [address] [place] [address] PCP - General Family Medicine 01/24/24 02/01/24 Gemini Messer NP [address] [place] [address] PCP - General Family Medicine 02/08/24 Anila Faustin PharmD [address] [place] [address] Pharmacist Internal Medicine 06/05/24 [facility] Care 07/23/24 documented as of this encounter
--- OUTSIDE RECORDS SUMMARY | 2025-02-13 19:04 | XMS_ITS | Encounter Summary ---
Author Organization [employer] Address [address] [facility] 7t [place] [address] Care Team Providers Care Toolroom Keeper Name Role Phone Gemini Messer GAURAV Primary Care Provider [phone] Anila Faustin PharmD Unavailable [phone] Reason for Visit * Reason Comments Med Refill Encounter Details Date Type Department Care Team ([facility] st Contact Info) Description 07/30/2024 Refill [facility] [address] [place] [address] Ruthie Schwarz FNP [address] [place], [place] [phone] Type 2 diabetes mellitus with hyperglycemia, with long-term current use of insulin ([facility]) Social History Tobacco Use [...] Description 04/01/2025 2:30 PM EST Medication Management [facility] [address] [place] [address] Anila Faustin PharmD [address] [place] [address] documented as of this encounter Visit Diagnoses Diagnosis Type 2 diabetes mellitus with hyperglycemia, with long-term current use of insulin (HCC) documented in this encounter Additional Health Concerns Assessment Noted Time PHQ-9 Depression Total Score: 11 025 1:12 PM EST documented as of this encounter Care Teams Toolroom Keeper Relationship Specialty Start Date End Date Gemini Messer NP [address] [place] [address] PCP - General Family Medicine 02/08/24 Anial Faustin PharmD [address] [place] [address] Pharmacist Internal Medicine 06/05/24 [facility] 07/23/24 documented as of this encounter
--- OUTSIDE RECORDS SUMMARY | 2025-02-13 19:04 | XMS_ITS | Encounter Summary ---
Author Organization [employer] Address 75 [facility] 7t [place] [address] Care Team Providers Care Sliver Lap Tender Name Role Phone Ruthie SchwarzP Primary Care Provider [phone] Yamile Ramsay ONLINE COMMUNICATIONS SPECIALIST Primary Care Provider [phone] Gemini Messer ECOLOGICAL MODELER Primary Care Provider [phone] Anila Faustin PharmD Unavailable Reason for Visit * Reason Onset Date Comments X-ray request 09/04/2023 Encounter Details Date Type Department Care Team (Late st Contact Info) Description 09/04/[address] [facility] [address] [place] [address] Ruthie Schwarz FNP [address] [place], [place] [phone] X-ray request Social History Tobacco Use Types [...] - 09/04/2023 10:57 AM EDT Tc to [facility] regarding X-ray order and to pass [...] EDT Please advise, tc to Saima at [facility] requesting a chest X-ray due to PICC line verification as the line came out about an inch. Fax number is [phone]. Stated to Saima would send message to provider to get the order in and fax it. Saima verbalized understanding and agreement with plan. * Telephone Encounter - Mark Castro - 09/04/2023 9:17 AM EDT Tc from Jen at [facility] calling to request a chest x-ray for a PICC Line Verification states it is urgent please call Jen at [phone] documented in this encounter Plan of Treatment Upcoming Encounters Date Type Department Care Team (Late st Contact Info) Description 04/01/2025 2:30 PM EST Medication Management [facility] [address] [place] [address] PuiaElisa, PharmD [address] [place] [address] documented as of this encounter Visit Diagnoses Not on filedocumented in this encounter Care Teams Sliver Lap Tender Relationship Specialty Start Date End Date Ruthie Schwarz FNP [address] [place] [address] PCP - General Family Medicine 8/25/22 10/22/24 Yamile Ramsay FNP [address] [place] [address] PCP - General Family Medicine 01/24/24 02/01/24 Gemini Messer NP [address] [place] [address] PCP - General Family Medicine 02/08/24 Anila Faustin PharmD [address] [place] [address] Pharmacist Internal Medicine 06/05/24 [facility] 07/23/24 documented as of this encounter
--- OUTSIDE RECORDS SUMMARY | 2025-02-13 19:04 | XMS_ITS | Encounter Summary ---
Author Organization [employer] [facility] Address [address] [facility] 7t [place] [address] Care Team Providers Care Seo Analyst Name Role Phone Karishma Ruthie SALAZAR Primary Care Provider [phone] Yamile Ramsay RETINA SUBSPECIALIST Primary Care Provider [phone] Gemini Messer INTERVENTIONAL TECHNOLOGIST Primary Care Provider [phone] PuiaRickieAnila PharmD Unavailable Reason for Visit * Reason Comments Med Refill Encounter Details Date Type Department Care Team (Late st Contact Info) Description 09/29/2023 Refill [facility] [address] [place] [address] Ruthie Schwarz FNP [address] [place], [place] [phone] Type 2 diabetes mellitus treated with insulin ([facility]) Social History Tobacco Use Types Packs/Day Years [...] Description 04/01/2025 2:30 PM EST Medication Management [facility] [address] [place] [address] Puia, Anila, PharmD [address] [place] [address] documented as of this encounter Visit Diagnoses Diagnosis Type 2 diabetes mellitus treated with insulin (HCC) documented in this encounter Care Teams Seo Analyst Relationship Specialty Start Date End Date Ruthie Schwarz FNP [address] [place] [address] PCP - General Family Medicine 11/25/21 01/23/24 Yamile Ramsay FNP [address] [place] [address] PCP - General Family Medicine 01/24/24 02/01/24 Gemini Messer NP [address] [place] [address] PCP - General Family Medicine 02/08/24 Anila Faustin PharmD [address] [place] [address] Pharmacist Internal Medicine 06/05/24 [facility] 07/23/24 documented as of this encounter
--- OUTSIDE RECORDS SUMMARY | 2025-02-13 19:04 | XMS_ITS | Encounter Summary ---
Author Organization [employer] Address 75 [facility] 7t [place] [address] Care Team Providers Care Lint Cleaner Name Role Phone Ruthie SchwarzP Primary Care Provider [phone] Yamile Ramsay GUEST SERVICES ASSOCIATE Primary Care Provider Gemini Messer TANK WORKER Primary Care Provider [phone] PuAnila ying PharmD Unavailable [phone] Encounter Details Date Type Department Care Team (Late st Contact Info) Description 04/15/2022 Orders Only [facility] [address] [place] [address] Payton Knutson LPN Social History Tobacco Use [...] Description 04/01/2025 2:30 PM EST Medication Management [facility] [address] [place] [address] PuiaRickieAnila, PharmD 230 [place] [address] documented as of this encounter Visit Diagnoses Not on filedocumented in this encounter Care Teams Lint Cleaner Relationship Specialty Start Date End Date Ruthie Schwarz FNP [address] [place] [address] PCP - General Family Medicine 11/25/21 01/23/24 Yamile Ramsay FNP [address] [place] [address] PCP - General Family Medicine 01/24/24 02/01/24 Gemini Messer NP [address] [place] [address] PCP - General Family Medicine 02/08/24 Anila Faustin PharmD [address] [place] [address] Pharmacist Internal Medicine 06/05/24 [facility] 07/23/24 documented as of this encounter
--- OUTSIDE RECORDS SUMMARY | 2025-02-13 19:04 | XMS_ITS | Encounter Summary ---
Author Organization [employer] Address [address] [facility] 7t [place] [address] Care Team Providers Care Ems Instructor Name Role Phone Gemini Messer NP Primary Care Provider [phone] Anila Faustin PharmD Unavailable [phone] Reason for Visit * Reason Comments Med Refill Encounter Details Date Type Department Care Team ([facility] st Contact Info) Description 08/07/2024 Refill [facility] 230 [place], [place] [phone] Gemini Messer NP [address] [place] [address] Type 2 diabetes mellitus treated with insulin ([facility]) Social History Tobacco Use Types Packs/Day Years [...] Description 04/01/2025 2:30 PM EST Medication Management [facility] [address] [place] [address] Anila Faustin PharmD [address] [place] [address] documented as of this encounter Visit Diagnoses Diagnosis Type 2 diabetes mellitus treated with insulin (HCC) documented in this encounter Additional Health Concerns Assessment Noted Time PHQ-9 Depression Total Score: 11 025 1:12 PM EST documented as of this encounter Care Teams Ems Instructor Relationship Specialty Start Date End Date Gemini Messer NP [address] [place] [address] PCP - General Family Medicine 02/08/24 Anila Faustin PharmD [address] [place] [address] Pharmacist Internal Medicine 06/05/24 [facility] 07/23/24 documented as of this encounter
--- OUTSIDE RECORDS SUMMARY | 2025-02-13 19:04 | XMS_ITS | Encounter Summary ---
Author Organization [employer] Address [address] [facility] 7t [place] [address] Care Team Providers Care Device Sales Consultant Name Role Phone DeepakDelonte alcantarle MEDICAL BILLING SPECIALIST Primary Care Provider [phone] Yamile Ramsay MEDICAL BILLING SPECIALIST Primary Care Provider [phone] Gemini Messer SANFORIZER Primary Care Provider [phone] PuAnila ying PharmD Unavailable [phone] Encounter Details Date Type Department Care Team (Late st Contact Info) Description 01/21/2024 Orders Only [facility] [address] [place] [address] KarishmaDelontele MEDICAL BILLING SPECIALIST [address] [place] [address] Social History Tobacco Use Types Packs/Day Years [...] Description 04/01/2025 2:30 PM EST Medication Management [facility] [address] [place] [address] PuiaRickieAnila, PharmD [address] [place] [address] documented as of this encounter Visit Diagnoses Not on filedocumented in this encounter Care Teams Device Sales Consultant Relationship Specialty Start Date End Date Ruthie Schwarz FNP [address] [place] [address] PCP - General Family Medicine 11/25/21 01/23/24 Yamile Ramsay FNP [address] [place] [address] PCP - General Family Medicine 01/24/24 02/01/24 Gemini Messer NP [address] [place] [address] PCP - General Family Medicine 02/08/24 Anila Faustin PharmD [address] [place] [address] Pharmacist Internal Medicine 06/05/24 [facility] Care 07/23/24 documented as of this encounter
--- OUTSIDE RECORDS SUMMARY | 2025-02-13 19:04 | XMS_ITS | Encounter Summary ---
Author Organization [employer] Address [address] [place] [address] 7t [place] [address] Care Team Providers Care Bureau Chief Name Role Phone Ruthie Schwarz PRODUCTION SUPERINTENDENT Primary Care Provider [phone] Yamile Ramsay PRODUCTION SUPERINTENDENT Primary Care Provider [phone] Gemini Messer SURFACE SUPPLY BREATHING APPARATUS Primary Care Provider [phone] Anila Faustin PharmD Unavailable Reason for Visit * Reason Onset Date Comments Nurse Triage 03/15/2023 Encounter Details Date Type Department Care Team ([facility] st Contact Info) Description 03/15/2023 Telephone [facility] [address] [place] [address] Ruthie Schwarz FNP 505 [place] [address] Nurse Triage Social History Tobacco Use Types [...] chart. Pt is advised to come to [facility] and Pt will come in the morning. Hours open 830am to 400pm tomorrow and Pt agrees with disposition. Pt is not suicidal and doesn't want to hurt anyone. Pt is not in distress at time of call. Advised that BH can be called in to [facility] for visit to speak with Pt and [...] Medication Management [facility] [address] [place] [address] Anila Faustin PharmD [address] [place] [address] documented as of this encounter Visit Diagnoses Not on filedocumented in this encounter Care Teams Bureau Chief Relationship Specialty Start Date End Date Ruthie Schwarz FNP [address] [place] [address] PCP - General Family Medicine 11/25/21 01/23/24 Yamile Ramsay FNP [address] [place] [address] PCP - General Family Medicine 01/24/24 02/01/24 Gemini Messer NP [address] [place] [address] PCP - General Family Medicine 02/08/24 Anila Faustin PharmD [address] [place] [address] Pharmacist Internal Medicine 06/05/24 [facility] 07/23/24 documented as of this encounter
--- OUTSIDE RECORDS SUMMARY | 2025-02-13 19:04 | XMS_ITS | Encounter Summary ---
Author Organization [employer] Address [address] [facility] 7t [place] [address] Care Team Providers Care Lace Roller Operator Name Role Phone Heathgris Gemini GAURAV Primary Care Provider [phone] Anila Faustin PharmD Unavailable [phone] Reason for Referral * Consultation (Routine) - Pending Review Specialty Diagnoses / Procedures Referred By Contfelton t Referred To Contact Pharmacy Diagnoses Hyperlipidemia associated with type 2 diabetes mellitus (HCC) Myrtle Padgett MD [address] [place] [address] Phone: tel: fax: Referral ID Status Reason Start Date Expiration Date Visits Requested Visits Authorized [id number] Pending Review Consult and Treat 05/06/2024 05/06/2025 12 12 Encounter Details Date Type Department Care Team (Late st Contact Info) Description 05/06/2024 Orders Only [facility] [address] [place], [place] [phone] Myrtle Padgett MD [address] [place], [place] [phone] Hyperlipidemia associated with type 2 diabetes mellitus [...] Management [facility] [address] [place] [address] Anila Faustin, PharmD [address] [place] [address] Scheduled Referrals Name Type Priority Associated Diagnoses Orde r Schedule Referral to Pharmacy CDTM Outpatient Referral Routine Hyperlipidemia associated with type 2 diabetes mellitus (CMS/HCC) (CMS/HCC) Ordered: 05/06/2024 documented as of this encounter Visit Diagnoses Diagnosis Hyperlipidemia associated with type 2 diabetes mellitus (HCC)- Primary documented in this encounter Additional Health Concerns Assessment Noted Time PHQ-9 Depression Total Score: 11 025 1:12 PM EST documented as of this encounter Care Teams Lace Roller Operator Relationship Specialty Start Date End Date Gemini Messer NP [address] [place] [address] PCP - General Family Medicine 02/08/24 Anila Faustin PharmD [address] [place] [address] Pharmacist Internal Medicine 06/05/24 [facility] Care 07/23/24 documented as of this encounter
--- OUTSIDE RECORDS SUMMARY | 2025-02-13 19:04 | XMS_ITS | Encounter Summary ---
Author Organization [employer] Address [address] [facility] 7t [place] [address] Care Team Providers Care Carroting Machine Offbearer Name Role Phone Ruthie SchwarzP Primary Care Provider Yamile Ramsay BOILER ASSISTANT OPERATOR Primary Care Provider [phone] Gemini Messer EDUCATIONAL PROGRAM ASSISTANT Primary Care Provider [phone] Anila Faustin PharmD Unavailable Reason for Visit * Reason Onset Date Comments Requested Call Back 10/20/2022 Encounter Details Date Type Department Care Team ([facility] st Contact Info) Description 10/20/2022 Telephone [facility] [address] [place] [address] Ruthie Schwarz FNP [address] [place], [place] [phone] Requested Call Back Social History Tobacco Use [...] AM EDT Pt is still admitted at [facility] for multifocal pneumonia. * Telephone Encounter - Herminia Onrelas - 10/20/2022 11:37 AM EDT Tc from [facility] requesting a call back, in regards to PCP signing VNA orders. Please call [phone] documented in this encounter Plan of Treatment Upcoming Encounters Date Type Department Care Team (Late st Contact Info) Description 04/01/2025 2:30 PM EST Medication Management [facility] [address] [place] [address] Anila Faustin PharmD [address] [place] [address] documented as of this encounter Visit Diagnoses Not on filedocumented in this encounter Care Teams Carroting Machine Offbearer Relationship Specialty Start Date End Date Ruthie Schwarz FNP [address] [place] [id number] PCP - General Family Medicine 11/25/21 01/23/24 Yamile Ramsay FNP [address] [place] [address] PCP - General Family Medicine 01/24/24 02/01/24 Gemini Messer NP [address] [place] [address] PCP - General Family Medicine 02/08/24 Anila Faustin, PharmD [address] [place] [address] Pharmacist Internal Medicine 06/05/24 [facility] 07/23/24 documented as of this encounter
--- OUTSIDE RECORDS SUMMARY | 2025-02-13 19:04 | XMS_ITS | Encounter Summary ---
Author Organization [employer] Address [address] [facility] 7t [place] [address] Care Team Providers Care Geography Instructor Name Role Phone Ruthie SchwarzP Primary Care Provider [phone] Yamile Ramsay RAIL TECHNICIAN Primary Care Provider Gemini Messer OUTSIDE RESIDENTIAL SALES PROFESSIONAL Primary Care Provider [phone] PuAnila ying PharmD Unavailable Encounter Details Date Type Department Care Team (Late st Contact Info) Description 08/02/2022 Orders Only [facility] [address] [place] [address] Payton Knutson LPN Social History Tobacco Use [...] Description 04/01/2025 2:30 PM EST Medication Management [facility] [address] [place] [address] PuiaRickieAnila, PharmD [address] [place] [address] documented as of this encounter Visit Diagnoses Not on filedocumented in this encounter Care Teams Geography Instructor Relationship Specialty Start Date End Date Ruthie Schwarz FNP [address] [place] [address] PCP - General Family Medicine 11/25/21 01/23/24 Yamile Ramsay FNP [address] [place] [address] PCP - General Family Medicine 01/24/24 02/01/24 Gemini Messer NP [address] [place] [address] PCP - General Family Medicine 02/08/24 Anila Faustin PharmD [address] [place] [address] Pharmacist Internal Medicine 06/05/24 [facility] 07/23/24 documented as of this encounter
--- OUTSIDE RECORDS SUMMARY | 2025-02-13 19:04 | XMS_ITS | Encounter Summary ---
Author Organization [employer] Address [address] [facility] 7t [place] [address] Care Team Providers Care Business Law Teacher Name Role Phone Ruthie SchwarzP Primary Care Provider [phone] Yamile Ramsay GREEN BELT Primary Care Provider [phone] Gemini Messer PHYSICIAN SPECIALIST Primary Care Provider [phone] PuAnila ying PharmD Unavailable Encounter Details Date Type Department Care Team (Late st Contact Info) Description 06/22/2022 Orders Only [facility] [address] [place] [address] Payton Knutson LPN Social History Tobacco Use [...] EST Medication Management [facility] [address] [place] [address] PuiaRickieAnila, PharmD [address] [place] [address] documented as of this encounter Visit Diagnoses Not on filedocumented in this encounter Care Teams Business Law Teacher Relationship Specialty Start Date End Date Ruthie Schwarz FNP [address] [place] [address] PCP - General Family Medicine 11/25/21 01/23/24 Yamile Ramsay FNP [address] [place] [address] PCP - General Family Medicine 01/24/24 02/01/24 Gemini Messer NP [address] [place] [address] PCP - General Family Medicine 02/08/24 Anila Faustin PharmD [address] [place] [address] Pharmacist Internal Medicine 06/05/24 [facility] 07/23/24 documented as of this encounter
--- OUTSIDE RECORDS SUMMARY | 2025-02-13 19:04 | XMS_ITS | Encounter Summary ---
Author Organization [employer] Address [address] [facility] 7t [place] [address] Care Team Providers Care Line Construction Engineer Name Role Phone Gemini Messer GAURAV Primary Care Provider [phone] Anila Faustin PharmD Unavailable [phone] Reason for Visit * Reason Onset Date Comments ED Expect 02/13/2025 Encounter Details Date Type Department Care Team ([facility] st Contact Info) Description 02/13/2025 Telephone [facility] [address] [place], [place] [phone] Dominique Hui, RN [address] [place], [place] [phone] ED Expect Social History Tobacco Use Types Packs/Day [...] encounter Miscellaneous Notes * Telephone Encounter - Dominique Hui RN - 02/13/2025 4:14 PM EST Telephone call placed to [facility] ED. Gave expect. [employer] called for pt who will be going for ?osteomyelitis vs cellulitis. Will send to PCP team to status check documented in this encounter Plan of Treatment Upcoming Encounters Date Type Department Care Team (Late st Contact Info) Description 04/01/2025 2:30 PM EST Medication Management [facility] [address] [place] [address] Anila Faustin, PharmD [address] [place] [address] documented as of this encounter Goals Goal Patient Goal Type Associated Problems Recent Progress Patient-Stated? Author Help patients manage their type 2 diabetes Care Plan Help patients manage their type 2 diabetes No Froilania, Anila, PharmD Weekly blood pressure task Care Plan Weekly blood pressure task No Puia, Anila, PharmD Help patients manage their type 2 diabetes Care Plan Help patients manage their type 2 diabetes No Rickie Faustinyssa, PharmD Patient has chronic kidney disease Care [...] Plan Patient has diabetic neuropathy No Dominique Hui, RN Patient has diabetic neuropathy Care Plan [...] documented as of this encounter Care Teams Line Construction Engineer Relationship Specialty Start Date End Date Gemini Messer NP [address] [place] [address] PCP - General Family Medicine 02/08/24 Anila Faustin PharmD [address] [place] [address] Pharmacist Internal Medicine 06/05/24 [facility] 07/23/24 documented as of this encounter
--- OUTSIDE RECORDS SUMMARY | 2025-02-13 19:04 | XMS_ITS | Encounter Summary ---
Author Organization [employer] Address [address] [facility] [address] [place] [address] Care Team Providers Care Dice Manager Name Role Phone Ruthie Schwarz MIDDLE SCHOOL TUTOR Primary Care Provider Yamile Ramsay MIDDLE SCHOOL TUTOR Primary Care Provider Gemini Messer CHEMICAL MIXER Primary Care Provider [phone] PuiaAnila PharmD Unavailable Reason for Visit * Reason Comments Med Refill Encounter Details Date Type Department Care Team (Late st Contact Info) Description 03/15/2023 Refill [facility] [address] [place] [address] Suzy Escobar MD [address] [place], [place] [phone] Neuropathic pain; Type 2 diabetes mellitus with hyperglycemia, unspecified whether fpc insulin use ([facility]); Primary hypertension Social History Tobacco Use Types [...] Description 04/01/2025 2:30 PM EST Medication Management [facility] [address] [place] [address] Puia, Anila, PharmD [address] [place] [address] documented as of this encounter Visit Diagnoses Diagnosis Neuropathic pain Type 2 diabetes mellitus with hyperglycemia, unspecified whether fpc insulin use (HCC) Primary hypertension Unspecified essential hypertension documented in this encounter Care Teams Dice Manager Relationship Specialty Start Date End Date Ruthie Schwarz FNP [address] [place] [address] PCP - General Family Medicine 11/25/21 01/23/24 Yamile Ramsay FNP [address] [place] [address] PCP - General Family Medicine 01/24/24 02/01/24 Gemini Messer NP [address] [place] [address] PCP - General Family Medicine 02/08/24 Anila Faustin PharmD [address] [place] [address] Pharmacist Internal Medicine 06/05/24 [facility] 07/23/24 documented as of this encounter
[2025-02-13 20:16] VITALS: BP 146/89; PULSE 88; RESP 16; TEMP 36.7; O2SAT 98
--- NOTE | 2025-02-13 22:06 | PC.NURSE ---
pt left before being seen due to his elderly mother is home alone and suffers from dementia. pt apologized for leaving and stated will come back for treatment tomorrow. MD was notified. Patient was not seen by provider so elopement the correct term for his leaving
== END 2025-02-13 22:19 | disposition left against medical advice (07) ==
PROVIDERS: Physician Assistant; Emergency Provider Emergency Medicine Emergency Medical Services; PCP Nurse Practitioner
DX: E11.621 Type 2 diabetes mellitus with foot ulcer (principal); M79.671 Pain in right foot; Z79.4 Long term (current) use of insulin; Z79.899 Other long term (current) drug therapy
CPT/HCPCS: 36415; 73630; 80053; 82947; 83605; 85025; 85652; 86140; 87040; 99284

== ENCOUNTER → 2025-02-13 16:51 | Outpatient (BNV) | payer OTHER, SELFPAY | PROVIDERS: Emergency Provider Emergency Medicine Emergency Medical Services; PCP Nurse Practitioner; Visit Provider Radiology Diagnostic Radiology | DX: L53.9 Erythematous condition, unspecified (principal); R22.41 Localized swelling, mass and lump, right lower limb | CPT/HCPCS: 73630 ==

== ENCOUNTER 2025-02-14 15:55 | Emergency (ER) | payer OTHER, SELFPAY ==
[2025-02-14 16:43] VITALS: BP 130/66; PULSE 89; RESP 20; TEMP 36.6; O2SAT 92; BMI 32.5
--- NOTE | 2025-02-14 16:46 | ED.GENADULT ---
HPI - General Adult General Chief complaint: Wound/Laceration Stated complaint: right leg pain, right middle toe wound Time Seen by Provider: 02/14/25 18:14 Source: patient Mode of arrival: ambulatory Limitations: no limitations History of Present Illness ED Provider: HPI narrative: 59-year-old male, diabetic, right middle toe pain and some redness, he states he is wearing shoes that are rubbing the tip of his toe, came to [facility] ED yesterday but left before he could get a prescription because he had took take care of his mom, no fevers or chills, he does have a nurse who help care for the wound according to the patient. Related Data Home Medications ?Medication ?Instructions ?Recorded ?Confirmed acetaminophen 500 mg capsule 500 mg PO Q8H PRN Pain (Scale 10/17/22 08/09/23 (Mapap (acetaminophen)) Score 1-3) albuterol sulfate 90 mcg/actuation 2 puff inhalation QID PRN 10/17/22 08/09/23 aerosol inhaler (Ventolin HFA) Shortness Of Breath amitriptyline 50 mg tablet 50 mg PO BEDTIME 10/17/22 08/09/23 aspirin 81 mg tablet,delayed 81 mg PO DAILY@1200 10/17/22 08/09/23 release carvedilol 12.5 mg tablet 12.5 mg PO BID 10/17/22 08/09/23 fenofibrate 160 mg tablet 160 mg PO DAILY 10/17/22 08/09/23 fluticasone propionate 50 2 spray intranasal DAILY 10/17/22 08/09/23 mcg/actuation nasal spray,suspension gabapentin 800 mg tablet 800 mg PO TID 10/17/22 08/09/23 glipizide 10 mg tablet 10 mg PO BIDAC 10/17/22 08/09/23 hydroxyzine pamoate 50 mg capsule 50 mg PO TID PRN Anxiety 10/17/22 08/09/23 insulin aspart U-100 100 unit/mL See Protocol subcut TIDAC 10/17/22 08/09/23 (3 mL) subcutaneous pen (Novolog FlexPen U-100 Insulin aspart) ipratropium 0.5 mg-albuterol 3 mg 3 ml inhalation QID PRN Shortness 10/17/22 08/09/23 (2.5 mg base)/3 mL nebulization Of Breath soln loratadine 10 mg tablet 10 mg PO DAILY@1200 10/17/22 08/09/23 omeprazole 20 mg capsule,delayed 20 mg PO BID@0630,1630 10/17/22 08/09/23 release quetiapine 25 mg tablet 25 mg PO BID PRN anxiety 10/17/22 08/09/23 quetiapine 300 mg tablet 300 mg PO BEDTIME 10/17/22 08/09/23 sertraline 100 mg tablet 100 mg PO DAILY 10/17/22 08/09/23 simvastatin 40 mg tablet 40 mg PO QPM 10/17/22 08/09/23 methadone 10 mg/mL oral 75 mg PO DAILY 10/18/22 08/12/23 concentrate (Methadone Intensol) Previous Rx's ?Medication ?Instructions ?Recorded fluticasone 500 mcg-salmeterol 50 1 ea inhalation BID #60 caps 06/23/21 mcg/dose blistr powdr for inhalation ertapenem 1 gram solution for 1 g IV DAILY #41 ea 08/14/23 injection insulin glargine 100 unit/mL (3 25 unit (0.25 mL) subcut BEDTIME 08/14/23 mL) subcutaneous pen (Lantus #15 mL Solostar U-100 Insulin) ertapenem 1 gram solution for 1 g IV DAILY #22 ea 09/06/23 injection doxycycline hyclate 100 mg capsule 100 mg PO BID 30 days #60 caps 09/25/23 doxycycline hyclate 100 mg capsule 100 mg PO BID 30 days #60 caps 02/14/25 Allergies Allergy/AdvReac Type Severity Reaction Status Date / Time bee pollen (BEE STINGS) Allergy Severe THROAT Verified 02/14/25 16:47 SWELLING raspberry (RASPBERRY) Allergy Severe UNKNOWN Verified 02/14/25 16:47 tadalafil (From CIALIS) Allergy Severe ANAPHYLAXIS Verified 02/14/25 16:47 wool Allergy Intermediate RASH Verified 02/14/25 16:47 Review of Systems Constitutional: Constitutional: Reports as per [facility] Past Medical History Medical History Diarrhea Moderate persistent asthma Depression Anxiety GERD (gastroesophageal reflux disease) Diabetes Asthma Substance abuse Surgical History No pertinent past surgical history Family History Family History Father Diabetes mellitus Alcohol abuse Social History Social History Household Members: Family Housing: House Do you presently have visiting nurse or other home services: No Patient Tobacco Use Status: Never used Tobacco Smoked in Last 30 Days: No Use of substances other than those prescribed or required for medical reasons: No Substance Use Type: Marijuana Advance Directives: No Advance Directives Information Provided: No service: No Physical Exam ED Exam Exam: Alert and oriented x4 Examination of right foot with some erythema of the dorsum, see picture below for the middle toe erosion and some blistering of the plantar aspect of the toe as well as dorsal, posterior tibial dorsalis pedis +2, calves are not swollen S1-S2 lungs CTA abdomen nontender nondistended Vital Signs: Vital Signs - 24 hr 02/14/25 16:43 02/14/25 18:10 Temperature 97.8 F 97.8 F Pulse Rate 89 89 Respiratory Rate 20 20 Blood Pressure 130/66 130/66 Pulse Oximetry 92 92 Oxygen Delivery Method Room Air Room Air BMI result Body Mass Index 32.5 Course Course Course Narrative: This is a rapid medical exam performed by Romel Ignacio NP: Additional HPI, ROS, PE not included below will be deferred to primary provider. Patient is a 59y/o M with pmhx DM presenting with wound to 3rd toe of right foot. Presented here yesterday for same but had to leave due to wait time. Had labs and xray done. Medical Decision Making Medical Decision Making [facility] Narrative: 7:13 PM 02/14/2025 (Dr. Yogesh Barcenas): patient had very much similar infection of the left 2nd toe , this was in 2023 that point he was admitted was on IV antibiotics with a PICC line and then switched over to doxycycline with ID follow up, patient is clinically doing wel, he is not septic no leukocytosis, nonfebrile, I discussed admission with the patient however he told me that he has an 84-year-old mom at home that he needs to take care of and so he would prefer to have this managed on outpatient basis, I spoke to him regarding oral antibiotics and then that I am going to give him a number for vascular surgery and Podiatry and to get in touch with podiatry service 1st and then vascular surgery if he is not able to have follow up, or come back to the ER if things get worse. I feel comfortable with this plan as well, his x-ray does reveal distal tuft osteomyelitis it is a localized disease, he knows that he may lose his toe I do not feel that I need to push the patient for admission or sign an AMA Differential Diagnosis Differential Diagnoses: The differential diagnosis associated with the presentation includes ( cellulitis, osteomyelitis, deep space infection, DVT, arterial insufficiency, venous insufficiency) Admission/Observation Consideration of admission/observation: Escalation of care including admission/observation considered I recommended admission to the patient, patient declined at this time citing the fact that he has to take care of his elderly mother, I discussed return precautions we will initiate oral antibiotics and refer him to vascular and Podiatry Lab Data MDM Lab Attestation statement: I reviewed the patient's lab results. Independent Interpretation I performed an independent interpretation of an: Plain X-Ray ( no proximal bony destruction no subcutaneous emphysema) Radiology Impression Discussion of test interpretation with radiology: I have reviewed the radiologist's reading. Radiologist Impression: Impression: 1. Third digit soft tissue swelling and resorption of the tuft of the 3rd distal phalanx is concerning for osteomyelitis of the 3rd distal phalanx. 2. Resorption versus interval resection of the distal aspect of the 2nd distal phalanx, as described above. Discharge Plan Discharge Clinical Impression: Acute osteomyelitis of toe of right foot Instructions: Osteomyelitis (ED) Additional Instructions: you have what appears to be a skin infection and a deeper infection of your 3rd toe of the right foot, it is eroded down to the bone and you likely have what is called osteomyelitis or infection of the bone just what you have had in the left side, we spoke about admission staying in the hospital for IV antibiotics, and likely be discharged on PICC line and then getting switched over to oral antibiotics at a later time, you have explained to me a situation in the fact that you have to take care of your mother which is understandable, I am going to start you on oral medications doxycycline, 1st dose in the ER what she has taken in the past for this infection, I am also going to provide you with a number to call initially a sound engineer audio control to schedule an appointment and a vascular surgeon because you need follow up and may require amputation, if the redness is spreading, if you spike fevers if you feel worse please come back to emergency department at that point I would strongly recommend admission for now use clean socks, postop shoe so your toe does not rub against the boots area needs to be cleaned with soap and water daily, no specific dressings at this time but if you have a nurse who is visiting they can apply Xeroform dressing and wrapped it toe for the next 1 week until you were hopefully able to follow up with Podiatry or vascular surgery or your PCP I am also providing you with a number for wound care If you your nurse is not able to care for the wound Prescriptions: New doxycycline hyclate 100 mg capsule 100 mg PO BID 30 Days Qty: 60 0RF No Action fluticasone propion-salmeterol 500-50 mcg/dose blister with device 1 ea inhalation BID Qty: 60 6RF quetiapine 25 mg tablet 25 mg PO BID PRN (Reason: anxiety) carvedilol 12.5 mg tablet 12.5 mg PO BID ipratropium-albuterol 0.5 mg-3 mg(2.5 mg base)/3 mL solution for nebulization 3 ml inhalation QID PRN (Reason: Shortness Of Breath) quetiapine 300 mg tablet 300 mg PO BEDTIME glipizide 10 mg tablet 10 mg PO BIDAC sertraline 100 mg tablet 100 mg PO DAILY hydroxyzine pamoate 50 mg capsule 50 mg PO TID PRN (Reason: Anxiety) aspirin 81 mg tablet,delayed release (DR/EC) 81 mg PO DAILY@1200 amitriptyline 50 mg tablet 50 mg PO BEDTIME simvastatin 40 mg tablet 40 mg PO QPM gabapentin 800 mg tablet 800 mg PO TID omeprazole 20 mg capsule,delayed release(DR/EC) 20 mg PO BID@0630,1630 albuterol sulfate [Ventolin HFA] 90 mcg/actuation HFA aerosol inhaler 2 puff INHALATION QID PRN (Reason: Shortness Of Breath) fluticasone propionate 50 mcg/actuation spray,suspension 2 spray intranasal DAILY acetaminophen [Mapap (acetaminophen)] 500 mg capsule 500 mg PO Q8H PRN (Reason: Pain (Scale Score 1-3)) loratadine 10 mg tablet 10 mg PO DAILY@1200 insulin aspart U-100 [Novolog FlexPen U-100 Insulin] 100 unit/mL (3 mL) insulin pen See Protocol subcut TIDA Protocol: Insulin Correction Scale Less than or equal to 110 ---- Give (units): 0 111 to 150 Give (units): 0 151 to 200 Give (units): 2 201 to 250 Give (units): 4 251 to 300 Give (units): 6 301 to 350 Give (units): 8 Greater than 350 Give (units): 10 Call MD if Blood Glucose > : 350 Rx Instructions: SLIDING SCALE 100-149=12 UNITS, 150-199=14 UNITS, 200-249=16 UNITS, 250-299=18 UNITS, 300 AND ABOVE-20 UNITS fenofibrate 160 mg tablet 160 mg PO DAILY methadone [Methadone Intensol] 10 mg/mL Concentrate 75 mg PO DAILY insulin glargine [Lantus Solostar U-100 Insulin] 100 unit/mL (3 mL) insulin pen 25 unit subcut BEDTIME Qty: 15 0RF ertapenem 1 gram recon soln 1 g IV DAILY Qty: 41 0RF Rx Instructions: ending 07/25 ertapenem 1 gram recon soln 1 g IV DAILY Qty: 22 0RF doxycycline hyclate 100 mg capsule 100 mg PO BID 30 Days Qty: 60 0RF Referrals: [facility] Podiatry [Provider Group, Podiatry] - 1 week Clinical Impression: Acute osteomyelitis of toe of right foot [facility] Wound Care Management [Provider Group] Clinical Impression: Acute osteomyelitis of toe of right foot Yoshi Mena MD [Physician, Vascular Surgery] - 1 week Clinical Impression: Acute osteomyelitis of toe of right foot Print Language: [place]
[2025-02-14 18:10] VITALS: BP 130/66; PULSE 89; RESP 20; TEMP 36.6; O2SAT 92
[2025-02-14 19:13] VITALS: BP 151/81; PULSE 90; RESP 19; TEMP 36.8; O2SAT 9
[2025-02-14 20:20] VITALS: BP 143/80; PULSE 90; RESP 16; TEMP 36.8; O2SAT 98
== END 2025-02-14 20:30 | disposition home or self-care (01) ==
PROVIDERS: Emergency Provider Emergency Medicine
DX: M86.9 Osteomyelitis, unspecified (principal); M79.674 Pain in right toe(s)
CPT/HCPCS: 99283; 99284

== ENCOUNTER 2025-02-19 10:16 | Outpatient (AMB) | payer OTHER, SELFPAY ==
[2025-02-19 10:36] VITALS: BMI 32.5
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
--- OUTSIDE RECORDS SUMMARY | 2025-02-19 19:44 | XMS_ITS | Encounter Summary ---
Author Organization [employer] Address [address] [facility] 7t [place] [address] Care Team Providers Care Inletter Name Role Phone Ruthie SchwarzP Primary Care Provider [phone] Yamile Ramsay HAND ALMOND BLANCHER Primary Care Provider [phone] Gemini Messer STONEMASON HELPER Primary Care Provider [phone] PuAnila ying PharmD Unavailable Encounter Details Date Type Department Care Team (Late st Contact Info) Description 08/02/2022 Orders Only [facility] CHC MED & PEDS [address] [place] [address] Payton Knutson LPN Social History Tobacco Use [...] Description 04/01/2025 2:30 PM EST Medication Management [facility] MEDICINE [address] [place] [address] Puia, Anila, PharmD [address] [place] [address] documented as of this encounter Visit Diagnoses Not on filedocumented in this encounter Care Teams Inletter Relationship Specialty Start Date End Date Ruthie Schwarz FNP [address] [place] [address] PCP - General Family Medicine 11/25/21 01/23/24 Yamile Ramsay FNP [address] [place] [address] PCP - General Family Medicine 01/24/24 02/01/24 Gemini Messer NP [address] [place] [address] PCP - General Family Medicine 02/08/24 Anila Faustin PharmD [address] [place] [address] Pharmacist Internal Medicine 06/05/24 [facility] 07/23/24 documented as of this encounter
--- OUTSIDE RECORDS SUMMARY | 2025-02-19 19:44 | XMS_ITS | Encounter Summary ---
Author Organization [employer] Address [address] [facility] 7t [place] [address] Care Team Providers Care Management Advisor Name Role Phone Ruthie SchwarzP Primary Care Provider [phone] Yamile Ramsay MECHANICAL APPLICATIONS ENGINEER Primary Care Provider [phone] Gemini Messer DRIVER TRAINEE Primary Care Provider [phone] PuAnila ying PharmD Unavailable Encounter Details Date Type Department Care Team (Late st Contact Info) Description 05/25/2022 Orders Only [facility] CHC MED & PEDS [address] [place] [address] Payton Knutson LPN Social History Tobacco Use [...] Description 04/01/2025 2:30 PM EST Medication Management [facility] MEDICINE [address] [place] [address] PuiaRickieAnila, PharmD [address] [place] [address] documented as of this encounter Visit Diagnoses Not on filedocumented in this encounter Care Teams Management Advisor Relationship Specialty Start Date End Date Ruthie Schwarz FNP [address] [place] [address] PCP - General Family Medicine 11/25/21 01/23/24 Yamile Ramsay FNP [address] [place] [address] PCP - General Family Medicine 01/24/24 02/01/24 Gemini Messer NP [address] [place] [address] PCP - General Family Medicine 02/08/24 Anila Faustin PharmD [address] [place] [address] Pharmacist Internal Medicine 06/05/24 [facility] 07/23/24 documented as of this encounter
--- OUTSIDE RECORDS SUMMARY | 2025-02-19 19:44 | XMS_ITS | Encounter Summary ---
Author Organization [employer] Address [address] [facility] 7t [place] [address] Care Team Providers Care Oracle Soa Developer Name Role Phone Ruthie SchwarzP Primary Care Provider Yamiel Ramsay OIL PROCESSING TECHNICIAN Primary Care Provider [phone] Gemini Messer DEPENDENCY COUNSELOR Primary Care Provider [phone] Anila Faustin PharmD Unavailable Reason for Visit * Reason Onset Date Comments Requested Call Back 10/20/2022 Encounter Details Date Type Department Care Team ([facility] st Contact Info) Description 10/20/2022 Telephone [facility] MEDICINE [address] [place] [address] Ruthie Schwarz FNP [address] [place], [place] [phone] Requested Call Back Social History Tobacco Use [...] AM EDT Pt is still admitted at [facility] for multifocal pneumonia. * Telephone Encounter - Herminia Ornelas - 10/20/2022 11:37 AM EDT Tc from [facility] requesting a call back, in regards to PCP signing VNA orders. Please call [phone] documented in this encounter Plan of Treatment Upcoming Encounters Date Type Department Care Team (Late st Contact Info) Description 04/01/2025 2:30 PM EST Medication Management [facility] MEDICINE [address] [place] [address] Anila Faustin PharmD [address] [place] [address] documented as of this encounter Visit Diagnoses Not on filedocumented in this encounter Care Teams Oracle Soa Developer Relationship Specialty Start Date End Date Ruthie Schwarz FNP [address] [place] [address] PCP - General Family Medicine 11/25/21 01/23/24 Yamile Ramsay FNP [address] [place] [address] PCP - General Family Medicine 01/24/24 02/01/24 Gemini Messer NP [address] [place] [address] PCP - General Family Medicine 02/08/24 Anila Faustin, PharmD [address] [place] [address] Pharmacist Internal Medicine 06/05/24 [facility] 07/23/24 documented as of this encounter
--- OUTSIDE RECORDS SUMMARY | 2025-02-19 19:44 | XMS_ITS | Data Portability ---
Author Organization [employer] [facility], [employer] [facility] Address [address] [place] [address] Care Team Providers Care Lifter/Driver Name Role Phone HIM CCA OTHER Unavailable [...] Orders doxycycline hyclate 100 mg capsule 2023 [facility], [address] [place] [address], [id number], 10:35:27 doxycycline hyclate 100 mg tablet [facility]23 [facility] [place], [address] [place] [address], [id number], 17:45:25 Patient TargetsNo targets recorded. Patient InstructionsNo instructions recorded. Reason for Referral None Reported. Medical Equipment None Reported. Allergies Allergen ID Allergen Name Allergen Category Reaction Reaction Severity Criticality Documentation Date Start Date Code Code System Note Provider Name and Address Organization Details Recorded Time 5761 Cialis medicatio n Not available Not available Not available 11/02/2023 31880 3 RxNorm Mabel Goddard MD [address] [place] [address],[address], [place], [address], [employer] 13:39:30 Medications Name Sig Start Date Stop [...] % 99 % 16 /min 97.1 [degF] 79037.3 2 g 182.88 cm 84 /min 122/83 mm[Hg] Not Available [employer] - production 4 13:35:39 Date Recorded Body weight Body height Body temperature Oxygen saturation Oxygen saturation in Arterial blood by Pulse oximetry Respiratory rate Heart rate Systolic And Diastolic Provider Name and Address Organization Details Last Updated DateTime 4 43632.6 g 172.72 cm 98.4 [degF] 98 % [...] ICD10 Code Diagnosis IMO Codes Diagnosis Note 54197 Mabel Goddard MD Main - [address] [address] 11/02/2023 13:35:26 11/05/2023 21:50:53 Diabetic foot ulcer 427605118 E13.621 28235 Juan Antonio Sun MD [facility] - [address] [address] 01/23/2024 17:34:23 01/24/2024 00:02:04 Cellulitis of left lower limb [id number] 8113934 L03.116 Health Concerns Section Related Observation LastModified by Organization Detai ls LastModified Time None Recorded Concern Status LastModified by Organization Details LastModified Time None Recorded Advance Directives Directive None Recorded Payers Insurance Date Sequence Insurance Name Policy Number Policy Dubose Covered Member ID Dubose Member ID Guarantor Name 02/06/2024 1 [facility] - DOS ON OR AFTER 2022 - DUAL ELIGIBLE - ALF OPTIONS AND ONE CARE (MEDICARE REPLACEMENT/ADV ANTAGE - HMO) Mckinley Berry [id number] Mckinley Berry Notes Date Note Type Note Provider Name and Address Organization Details Recorded Time 11/02/2023 text/html HPI: blood sugar in 300s, open wound near toes on right foot Member is followed by ID due to h/o sepsis .................... .................... .................... .................... .................... .................... .................... . CRC Nurse Triage Notes (Amy Johnston): Chief Complaints: Wound Care PMH: Diabetes, Hypertension Other Allergies: tadalafil Comments: Instrument Repairer verified the member's name//address and phone number. [...] .................... .................... .................... .................... .................... .................... . Sailing Instructor Note From Cheng Sapp: Smartcare visit for [...] Affected toe's examined with images sent to [facility]. Consulted with [facility] Dr. Goddard who said she would put in request to PCP to have patient seen sooner to address issues and get possible xray of the foot. Reviewed red flags for ED. Patient education provided. .................... .................... .................... .................... .................... .................... .................... . Disposition: Yvonne Goddard MD [address] [facility],[address], [place], [address], [employer] 11/02/2023 15:00:39 01/23/2024 text/html HPI: anxiety, chronic [...] CRC RN DID NOT NEED FURTHER INFO Sailing Instructor Organization Information for Dallin Lawrence Breathometer Legal Name: [facility] Address: [address] [place] [address], [place] [id number], Ship Officer: Kehinde Canela MD [facility] No.: [id number] Sailing Instructor POC Test Results from Dallin Lawrence - [facility] Blood Glucose Measurement (17:15:08) Blood Glucose: 328 mg/dL .................... .................... .................... .................... .................... .................... .................... . Sailing Instructor Note From Dallin Lawrence: Patient conscious and [...] extra heat, discolored discharge, or current bleeding noted.[facility] orders doxycycline 200 mg PO now and will call in more to patient s local pharmacy. Supportive care, including cleaning and use of triple antibiotic ointment discussed. Red flags, and patient education discussed.Note: [id number]. entry level machine operator in test section of this report incorrect. Patient s BGL equals 228 MG/DL [facility] Medication Orders: doxycycline hyclate 100 mg tablet: Administered .................... .................... .................... .................... .................... .................... .................... . Disposition: Fulfilled Juan Antonio Sun MD [address] [facility],[address], [place], [address], JOSHUA - JAH [place] 01/23/2024 20:59:30
--- OUTSIDE RECORDS SUMMARY | 2025-02-19 19:44 | XMS_ITS | Encounter Summary ---
Author Organization [employer] Address [address] [facility] 7t [place] [address] Care Team Providers Care Lead Technical Architect Name Role Phone Ruthie SchwarzP Primary Care Provider [phone] Yamile Ramsay LEAD SECTION SUPERVISOR Primary Care Provider [phone] Gemini Messer SULFIDE HEAD OPERATOR Primary Care Provider [phone] PuAnila ying PharmD Unavailable [phone] Encounter Details Date Type Department Care Team (Late st Contact Info) Description 03/16/2022 Orders Only [facility] CHC MED & PEDS [address] [place] [address] Payton Knutson LPN Social History Tobacco Use [...] Description 04/01/2025 2:30 PM EST Medication Management [facility] MEDICINE [address] [place] [address] Puia, Anila, PharmD [address] [place] [address] documented as of this encounter Visit Diagnoses Not on filedocumented in this encounter Care Teams Lead Technical Architect Relationship Specialty Start Date End Date Ruthie Schwarz FNP [address] [place] [address] PCP - General Family Medicine 11/25/21 01/23/24 Yamlie Ramsay FNP [address] [place] [address] PCP - General Family Medicine 01/24/24 02/01/24 Gemini Messer NP [address] [place] [address] PCP - General Family Medicine 02/08/24 Anila Faustin PharmD [address] [place] [address] Pharmacist Internal Medicine 06/05/24 [facility] 07/23/24 documented as of this encounter
--- OUTSIDE RECORDS SUMMARY | 2025-02-19 19:44 | XMS_ITS | Encounter Summary ---
Author Organization [employer] Address [address] [facility] [address]t [place] [address] Care Team Providers Care Electroplater Helper Name Role Phone Heathgris Gemini GAURAV Primary Care Provider [phone] Anila Faustin PharmD Unavailable [phone] Reason for Referral * Consultation (Routine) - Pending Review Specialty Diagnoses / Procedures Referred By Contfelton t Referred To Contact Pharmacy Diagnoses Hyperlipidemia associated with type 2 diabetes mellitus (HCC) Myrtle Padgett MD [address] [place] [address] Phone: tel: fax: Referral ID Status Reason Start Date Expiration Date Visits Requested Visits Authorized [id number] Pending Review Consult and Treat 05/06/2024 05/06/2025 12 12 Encounter Details Date Type Department Care Team (Late st Contact Info) Description 05/06/2024 Orders Only [facility] MEDICINE [address] [place], [place] [phone] Myrtle Padgett MD [address] [place], [place] [phone] Hyperlipidemia associated with type 2 diabetes mellitus [...] Description 04/01/2025 2:30 PM EST Medication Management [facility] MEDICINE [address] [place] [address] Anila Faustin, PharmD [address] [place] [address] Scheduled Referrals Name Type Priority Associated Diagnoses [...] documented as of this encounter Care Teams Electroplater Helper Relationship Specialty Start Date End Date Gemini Messer NP [address] [place] [address] PCP - General Family Medicine 02/08/24 Anila Faustin PharmD [address] [place] [address] Pharmacist Internal Medicine 06/05/24 [facility] 07/23/24 documented as of this encounter
--- OUTSIDE RECORDS SUMMARY | 2025-02-19 19:44 | XMS_ITS | Encounter Summary ---
Author Organization [employer] Address [address] [facility] 7t [place] [address] Care Team Providers Care Newspaper Copy Editor Name Role Phone Gemini Messer SILVERWARE WASHER Primary Care Provider [phone] Anila Faustin PharmD Unavailable [phone] Encounter Details Date Type Department Care Team (Late st Contact Info) Description 05/16/2024 Orders Only [facility] MEDICINE [address] [place], [place] [phone] Gemini Messer NP [address] [place] [address] Social History Tobacco Use Types Packs/Day Years [...] Description 04/01/2025 2:30 PM EST Medication Management [facility] MEDICINE [address] [place] [address] Anila Faustin PharmD [address] [place] [address] documented as of this encounter Visit Diagnoses Not on filedocumented in this encounter Additional Health Concerns Assessment Noted Time PHQ-9 Depression Total Score: 11 025 1:12 PM EST documented as of this encounter Care Teams Newspaper Copy Editor Relationship Specialty Start Date End Date Gemini Messer NP [address] [place] [address] PCP - General Family Medicine 02/08/24 Anila Faustin, PharmD [address] [place] [address] Pharmacist Internal Medicine 06/05/24 [facility] 07/23/24 documented as of this encounter
--- OUTSIDE RECORDS SUMMARY | 2025-02-19 19:44 | XMS_ITS | Encounter Summary ---
Author Organization [employer] Address [address] [facility] 7t [place] [address] Care Team Providers Care Licensed Reactor Operator Name Role Phone Ruthie SchwarzP Primary Care Provider [phone] Yamile Ramsay PRINTED CIRCUIT BOARDS ROUTER Primary Care Provider [phone] Gemini Messer PANTS MAKER Primary Care Provider [phone] PuAnila ying PharmD Unavailable Encounter Details Date Type Department Care Team (Late st Contact Info) Description 06/22/2022 Orders Only [facility] CHC MED & PEDS [address] [place] [address] Payton Knutson LPN Social History Tobacco Use [...] Description 04/01/2025 2:30 PM EST Medication Management [facility] MEDICINE [address] [place] [address] Puia, Anila, PharmD 230 [place] [address] documented as of this encounter Visit Diagnoses Not on filedocumented in this encounter Care Teams Licensed Reactor Operator Relationship Specialty Start Date End Date Ruthie Schwarz FNP [address] [place] [address] PCP - General Family Medicine 11/25/21 01/23/24 Yamile Ramsay FNP [address] [place] [address] PCP - General Family Medicine 01/24/24 02/01/24 Gemini Messer NP [address] [place] [address] PCP - General Family Medicine 02/08/24 Anila Faustin PharmD [address] [place] [address] Pharmacist Internal Medicine 06/05/24 [facility] 07/23/24 documented as of this encounter
--- OUTSIDE RECORDS SUMMARY | 2025-02-19 19:44 | XMS_ITS | Encounter Summary ---
Author Organization [employer] Address 75 [facility] 7t [place] [address] Care Team Providers Care Vice President Name Role Phone DeepakDelonte alcantarle EXTRACTING MACHINE OPERATOR Primary Care Provider [phone] Yamile Ramsay EXTRACTING MACHINE OPERATOR Primary Care Provider [phone] Gemini Messer OCCUPATIONAL THERAPY DEPARTMENT CHAIR Primary Care Provider [phone] PuAnila ying PharmD Unavailable Encounter Details Date Type Department Care Team (Late st Contact Info) Description 01/21/2024 Orders Only [facility] CH[facility] MED & PEDS [address] [place] [address] KarishmaDelontele EXTRACTING MACHINE OPERATOR 505 [place] [address] Social History Tobacco Use Types Packs/Day Years [...] Description 04/01/2025 2:30 PM EST Medication Management [facility] MEDICINE 230 [place] [address] PuiaRickieAnila, PharmD 230 [place] [address] documented as of this encounter Visit Diagnoses Not on filedocumented in this encounter Care Teams Vice President Relationship Specialty Start Date End Date Ruthie Schwarz FNP 230 [place] [address] PCP - General Family Medicine 11/25/21 01/23/24 Yamile Ramsay FNP 230 [place] [address] PCP - General Family Medicine 01/24/24 02/01/24 Gemini Messer NP 230 [place] [address] PCP - General Family Medicine 02/08/24 Anila Faustin PharmD 230 [place] [address] Pharmacist Internal Medicine 06/05/24 [facility] 07/23/24 documented as of this encounter
--- OUTSIDE RECORDS SUMMARY | 2025-02-19 19:44 | XMS_ITS | Encounter Summary ---
Author Organization [employer] [facility] Address 75 [facility] 7t [place] [address] Care Team Providers Care Sterile Processing Manager Name Role Phone Ruthie cShwarzP Primary Care Provider [phone] Yamile Ramsay SPINNING MACHINE TENDER Primary Care Provider [phone] Gemini Messer STAFF PHYSICAL THERAPIST Primary Care Provider [phone] PuAnila ying PharmD Unavailable [phone] Encounter Details Date Type Department Care Team (Late st Contact Info) Description 03/31/2022 Orders Only [facility] MEDICINE [address] [place] [address] Jill Felix, BONI Social History Tobacco Use [...] 2:30 PM EST Medication Management [facility] MEDICINE [address] [place] [address] Puia, Anila, PharmD 230 [place] [address] documented as of this encounter Visit Diagnoses Not on filedocumented in this encounter Care Teams Sterile Processing Manager Relationship Specialty Start Date End Date Ruthie Schwarz FNP 230 [place] [address] PCP - General Family Medicine 11/25/21 01/23/24 Yamile Ramsay FNP 230 [place] [address] PCP - General Family Medicine 01/24/24 02/01/24 Gemini Messer NP [address] [place] [address] PCP - General Family Medicine 02/08/24 Anila Faustin PharmD 230 [place] [address] Pharmacist Internal Medicine 06/05/24 [facility] 07/23/24 documented as of this encounter
--- OUTSIDE RECORDS SUMMARY | 2025-02-19 19:44 | XMS_ITS | Encounter Summary ---
Author Organization [employer] Address 75 [facility] 7t [place] [address] Care Team Providers Care Final Inspector Balance Wheel Name Role Phone Gemini Messer NP Primary Care Provider [phone] Anila Faustin PharmD Unavailable [phone] Reason for Visit * Reason Comments Med Refill Encounter Details Date Type Department Care Team ([facility] st Contact Info) Description 07/11/[address] [facility] CHC MED & PEDS 505 [place] [address] Gemini Messer NP 230 [place] [address] Pain Social History Tobacco Use Types Packs/Day [...] PM EST Medication Management [facility] MEDICINE 230 [place] [address] Anila Faustin PharmD 230 [place] [address] documented as of this encounter Visit Diagnoses Diagnosis Pain Generalized pain documented in this encounter Additional Health Concerns Assessment Noted Time PHQ-9 Depression Total Score: 11 025 1:12 PM EST documented as of this encounter Care Teams Final Inspector Balance Wheel Relationship Specialty Start Date End Date Gemini Messer NP [address] [place] [address] PCP - General Family Medicine 02/08/24 Anila Faustin PharmD [address] [place] [address] Pharmacist Internal Medicine 06/05/24 [facility] Care 07/23/24 documented as of this encounter
--- OUTSIDE RECORDS SUMMARY | 2025-02-19 19:44 | XMS_ITS | Encounter Summary ---
Author Organization [employer] Address 75 [facility] 7t [place] [address] Care Team Providers Care Forging Engineer Name Role Phone Karishma Ruthie SALAZAR Primary Care Provider Yamile Ramsay TELEPHONIC NURSE Primary Care Provider [phone] Gemini Messer DATA PROCESSING SPECIALIST Primary Care Provider [phone] PuiaRickieAnila PharmD Unavailable [phone] Reason for Visit * Reason Comments Med Refill Encounter Details Date Type Department Care Team (Late st Contact Info) Description 09/29/2023 Refill [facility] MEDICINE [address] [place] [address] Ruthie Schwarz FNP 505 [place], [place] [phone] Type 2 diabetes mellitus treated with insulin ([facility]) Social History Tobacco Use Types Packs/Day Years [...] Description 04/01/2025 2:30 PM EST Medication Management [facility] MEDICINE [address] [place] [address] Puia, Anila, PharmD 230 [place] [address] documented as of this encounter Visit Diagnoses Diagnosis Type 2 diabetes mellitus treated with insulin (HCC) documented in this encounter Care Teams Forging Engineer Relationship Specialty Start Date End Date Ruthie Schwarz FNP 230 [place] [address] PCP - General Family Medicine 11/25/21 01/23/24 Ymaile Ramsay FNP 230 [place] [address] PCP - General Family Medicine 01/24/24 02/01/24 Gemini Messer NP [address] [place] [address] PCP - General Family Medicine 02/08/24 Ainla Faustin PharmD 230 [place] [address] Pharmacist Internal Medicine 06/05/24 [facility] 07/23/24 documented as of this encounter
--- OUTSIDE RECORDS SUMMARY | 2025-02-19 19:44 | XMS_ITS | Encounter Summary ---
Author Organization [employer] Address [address] [place] [address] 7t [place] [address] Care Team Providers Care Co Op Name Role Phone Deepakkatharine Ruthie MINGLER OPERATOR Primary Care Provider [phone] Yamile Ramsay MINGLER OPERATOR Primary Care Provider [phone] Gemini Messer STATOR WINDER Primary Care Provider [phone] PuiaElisa PharmD Unavailable Reason for Visit * Reason Comments Med Refill Encounter Details Date Type Department Care Team (Late st Contact Info) Description 01/18/2024 Refill [facility] CHC MED & PEDS [address] [place], [place] [phone] Ruthie Schwarz FNP 505 [place], [place] [phone] Type 2 diabetes mellitus treated with insulin ([facility]) Social History Tobacco Use Types [...] Description 04/01/2025 2:30 PM EST Medication Management [facility] MEDICINE [address] [place] [address] Puia, Anila, PharmD [address] [place], [place] [phone] documented as of this encounter Visit Diagnoses Diagnosis Type 2 diabetes mellitus treated with insulin (HCC) documented in this encounter Care Teams Co Op Relationship Specialty Start Date End Date Ruthie Schwarz FNP [address] [place] [address] PCP - General Family Medicine 11/25/21 01/23/24 Yamile Ramsay FNP 230 [place] [address] PCP - General Family Medicine 01/24/24 02/01/24 Gemini Messer NP [address] [place] [address] PCP - General Family Medicine 02/08/24 Anila Faustin PharmD 230 [place] [address] Pharmacist Internal Medicine 06/05/24 [facility] 07/23/24 documented as of this encounter
--- OUTSIDE RECORDS SUMMARY | 2025-02-19 19:44 | XMS_ITS | Encounter Summary ---
Author Organization [employer] Address 75 [facility] 7t [place] [address] Care Team Providers Care Front Desk Agent Name Role Phone Ruthie SchwarzP Primary Care Provider [phone] Yamile Ramsay PROJECT MANAGEMENT PROFESSOR Primary Care Provider [phone] Gemini Messer HEDGE FUND MANAGER Primary Care Provider [phone] PuAnila ying PharmD Unavailable Encounter Details Date Type Department Care Team (Late st Contact Info) Description 04/15/[address] [facility] CHC MED & PEDS 505 [place] [address] Payton Knutson LPN Social History Tobacco Use [...] 04/01/2025 2:30 PM EST Medication Management [facility] MEDICINE 230 [place] [address] Puia, Anila, PharmD 230 [place] [address] documented as of this encounter Visit Diagnoses Not on filedocumented in this encounter Care Teams Front Desk Agent Relationship Specialty Start Date End Date Ruthie Schwarz FNP 230 [place] [address] PCP - General Family Medicine 11/25/21 01/23/24 Yamile Ramsay FNP [address] [place] [address] PCP - General Family Medicine 01/24/24 02/01/24 Gemini Messer NP [address] [place] [address] PCP - General Family Medicine 02/08/24 Anila Faustin PharmD [address] [place] [address] Pharmacist Internal Medicine 06/05/24 [facility] 07/23/24 documented as of this encounter
--- OUTSIDE RECORDS SUMMARY | 2025-02-19 19:44 | XMS_ITS | Encounter Summary ---
Author Organization [employer] Address 75 [facility] 7t [place] [address] Care Team Providers Care Container Finishing Inspector Name Role Phone Ruthie Schwarz Primary Care Provider [phone] Yamile Ramsay NETWORKS COMPUTER CONSULTANT Primary Care Provider [phone] Gemini Messer ELECTRICAL ESTIMATOR Primary Care Provider [phone] Anila Faustin PharmD Unavailable Reason for Visit * Reason Onset Date Comments triage 04/27/2022 Encounter Details Date Type Department Care Team ([facility] st Contact Info) Description 04/27/2022 Telephone [facility] MEDICINE [address] [place] [address] Ruthie Schwarz FNP [address] [place], [place] [phone] triage Social History Tobacco Use Types Packs/Day [...] Description 04/01/2025 2:30 PM EST Medication Management [facility] MEDICINE [address] [place] [address] Anila Faustin PharmD [address] [place] [address] documented as of this encounter Visit Diagnoses Not on filedocumented in this encounter Care Teams Container Finishing Inspector Relationship Specialty Start Date End Date Ruthie Schwarz FNP [address] [place] [address] PCP - General Family Medicine 11/25/21 01/23/24 Yamile Ramsay FNP [address] [place] [address] PCP - General Family Medicine 01/24/24 02/01/24 Gemini Messer NP [address] [place] [address] PCP - General Family Medicine 02/08/24 Anila Faustin PharmD [address] [place] [address] Pharmacist Internal Medicine 06/05/24 [facility] 07/23/24 documented as of this encounter
--- OUTSIDE RECORDS SUMMARY | 2025-02-19 19:45 | XMS_ITS | Encounter Summary ---
Author Organization [employer] Address [address] [place] [address] 7t [place] [address] Care Team Providers Care Fabrication And Layout Craftsman Name Role Phone Ruthie Schwarz FIRE INVESTIGATION LIEUTENANT Primary Care Provider [phone] Yamile Ramsay FIRE INVESTIGATION LIEUTENANT Primary Care Provider [phone] Gemini Messer FULL TIME PARAMEDIC Primary Care Provider [phone] Anila Faustin PharmD Unavailable Reason for Visit * Reason Onset Date Comments Nurse Triage 03/15/2023 Encounter Details Date Type Department Care Team ([facility] st Contact Info) Description 03/15/2023 Telephone [facility] CHC MED & PEDS 505 [place] [address] Ruthie Schwarz FNP 505 [place] [address] Nurse Triage Social History Tobacco Use Types [...] chart. Pt is advised to come to [facility] and Pt will come in the morning. Hours open 830am to 400pm tomorrow and Pt agrees with disposition. Pt is not suicidal and doesn't want to hurt anyone. Pt is not in distress at time of call. Advised that BH can be called in to [facility] for visit to speak with Pt [...] Description 04/01/2025 2:30 PM EST Medication Management [facility] MEDICINE 230 [place] [address] Anila Faustin PharmD 230 [place] [address] documented as of this encounter Visit Diagnoses Not on filedocumented in this encounter Care Teams Fabrication And Layout Craftsman Relationship Specialty Start Date End Date Ruthie Schwarz FNP [address] [place] [address] PCP - General Family Medicine 11/25/21 01/23/24 Yamile Ramsay FNP [address] [place] [address] PCP - General Family Medicine 01/24/24 02/01/24 Gemini Messer NP [address] [place] [address] PCP - General Family Medicine 02/08/24 Anila Faustin PharmD [address] [place] [address] Pharmacist Internal Medicine 06/05/24 [place] 07/23/24 documented as of this encounter
--- OUTSIDE RECORDS SUMMARY | 2025-02-19 19:45 | XMS_ITS | Encounter Summary ---
Author Organization [employer] Address 75 [facility] 7t [place] [address] Care Team Providers Care Dentist/Owner Name Role Phone Gemini Messer NP Primary Care Provider [phone] Anila Faustin PharmD Unavailable [phone] Reason for Visit * Reason Comments Med Refill Encounter Details Date Type Department Care Team ([facility] st Contact Info) Description 08/07/2024 Refill [facility] MEDICINE 230 [place], [place] [phone] Gemini Messer NP 230 [place] [address] Type 2 diabetes mellitus treated with insulin ([facility]) Social History Tobacco Use Types [...] 04/01/2025 2:30 PM EST Medication Management [facility] MEDICINE 230 [place] [address] Anila Faustni PharmD 230 [place] [address] documented as of this encounter Visit Diagnoses Diagnosis Type 2 diabetes mellitus treated with insulin (HCC) documented in this encounter Additional Health Concerns Assessment Noted Time PHQ-9 Depression Total Score: 11 025 1:12 PM EST documented as of this encounter Care Teams Dentist/Owner Relationship Specialty Start Date End Date Gemini Messer NP 230 [place] [address] PCP - General Family Medicine 02/08/24 Anila Faustin PharmD [address] [place] [address] Pharmacist Internal Medicine 06/05/24 [facility] 07/23/24 documented as of this encounter
--- OUTSIDE RECORDS SUMMARY | 2025-02-19 19:45 | XMS_ITS | Encounter Summary ---
Author Organization [employer] Address 75 [facility] 7t [place] [address] Care Team Providers Care Solar Technician Name Role Phone Gemini Messer GAURAV Primary Care Provider [phone] Anila Faustin PharmD Unavailable [phone] Reason for Visit * Reason Comments Med Refill Encounter Details Date Type Department Care Team ([facility] st Contact Info) Description 07/30/2024 Refill [facility] MEDICINE 230 [place] [address] Ruthie Schwarz FNP 505 [place], [place] [phone] Type 2 diabetes mellitus with hyperglycemia, with long-term current use of insulin ([facility]) Social History Tobacco Use Types Packs/Day Years [...] Medication Management [facility] MEDICINE 230 [place] [address] Anila Faustin PharmD 230 [place] [address] documented as of this encounter Visit Diagnoses Diagnosis Type 2 diabetes mellitus with hyperglycemia, with long-term current use of insulin (HCC) documented in this encounter Additional Health Concerns Assessment Noted Time PHQ-9 Depression Total Score: 11 025 1:12 PM EST documented as of this encounter Care Teams Solar Technician Relationship Specialty Start Date End Date Gemini Messer NP [address] [place] [address] PCP - General Family Medicine 02/08/24 Anila Faustin PharmD [address] [place] [address] Pharmacist Internal Medicine 06/05/24 [facility] 07/23/24 documented as of this encounter
--- OUTSIDE RECORDS SUMMARY | 2025-02-19 19:45 | XMS_ITS | Encounter Summary ---
Author Organization [employer] Address 75 [facility] 7t [place] [address] Care Team Providers Care Teacher Emotionally Impaired Name Role Phone Gemini Messer GAURAV Primary Care Provider [phone] Anila Faustin PharmD Unavailable Reason for Visit * Reason Onset Date Comments ED Expect 02/13/2025 Encounter Details Date Type Department Care Team ([facility] st Contact Info) Description 02/13/2025 Telephone [facility] MEDICINE 230 [place], [place] [phone] Dominique Hui, RN 230 [place], [place] [phone] ED Expect Social History Tobacco Use Types [...] Telephone Encounter - Jazmine Keller RN - 02/18/2025 1:48 PM EST Pt evaluated in [facility] ED 02/14/25 Diagnosis: Acute osteomyelitis of toe of right foot. Pt was prescribed oral doxycyline and discharged home with VNA to apply Xeroform dressing. Pt was recommended to f/u with pcp or podiatry. Pt was given contact information for vascular surgeon for consult for potential amputation. Pt is following with [facility] wound care currently. T/C to pt for status check. No answer, v/m left to return call to Blue team nurses. * Telephone Encounter - Dominique Hui RN - 02/13/2025 4:14 PM EST Telephone call placed to [facility] ED. Gave expect. [employer] called for pt who will be going for ?osteomyelitis vs cellulitis. Will send to PCP team to status check documented in this encounter Plan of Treatment Upcoming Encounters Date Type Department Care Team (Late st Contact Info) Description 04/01/2025 2:30 PM EST Medication Management [facility] MEDICINE [address] [place] [address] Puia, Anila, PharmD [address] [place] [address] documented as of this encounter Goals Goal [...] has diabetic neuropathy No Dominique Hui RN Weekly blood pressure task Care Plan Weekly blood pressure task No Gemini Messer NP Weekly blood pressure task Care Plan Weekly blood pressure task No Gemini Messer NP Weekly blood pressure task Care Plan Weekly blood pressure task No Gemini Messer NP Patient has chronic kidney disease Care Plan Patient has chronic kidney disease No Gemini Messer NP Patient has chronic kidney disease Care Plan Patient has chronic kidney disease No Gemini Messer NP Patient has chronic kidney disease Care Plan Patient has chronic kidney disease No Gemini Messer NP Patient has diabetic neuropathy Care Plan Patient has diabetic neuropathy No Gemini Messer NP Patient has diabetic neuropathy Care Plan Patient has diabetic neuropathy No Gemini Messer NP Patient has diabetic neuropathy Care Plan Patient has diabetic neuropathy No Gemini Messer NP Weekly blood pressure task Care Plan Weekly blood pressure task No Gemini Messer NP Weekly blood pressure task Care Plan Weekly blood pressure task No Gemini Messer NP Weekly blood pressure task Care Plan Weekly blood pressure task No Gemini Messer NP Patient has chronic kidney disease Care Plan Patient has chronic kidney disease No Gemini Messer NP Patient has chronic kidney disease Care Plan Patient has chronic kidney disease No Gemini Messer NP Patient has chronic kidney disease Care Plan Patient has chronic kidney disease No Gemini Messer AIRCRAFT ASSEMBLER Patient has diabetic neuropathy Care Plan Patient has diabetic neuropathy No Gemini Messer AIRCRAFT ASSEMBLER Patient has diabetic neuropathy Care Plan Patient has diabetic neuropathy No Gemini Messer NP Patient has diabetic neuropathy Care Plan Patient has diabetic neuropathy No Gemini Messer NP documented as of this encounter Visit Diagnoses [...] diabetic neuropathy 02/13/2025 Weekly blood pressure task 02/14/2025 Weekly blood pressure task 02/14/2025 Weekly blood pressure task 02/14/2025 Patient has chronic kidney disease 02/14/2025 Patient has chronic kidney disease 02/14/2025 Patient has chronic kidney disease 02/14/2025 Patient has diabetic neuropathy 02/14/2025 Patient has diabetic neuropathy 02/14/2025 Patient has diabetic neuropathy 02/14/2025 Weekly blood pressure task 02/14/2025 Weekly blood pressure task 02/14/2025 Weekly blood pressure task 02/14/2025 Patient has chronic kidney disease 02/14/2025 Patient has chronic kidney disease 02/14/2025 Patient has chronic kidney disease 02/14/2025 Patient has diabetic neuropathy 02/14/2025 Patient has diabetic neuropathy 02/14/2025 Patient has diabetic neuropathy 02/14/2025 Assessment Noted Time PHQ-9 Depression Total Score: 11 025 1:12 PM EST documented as of this encounter Care Teams Teacher Emotionally Impaired Relationship Specialty Start Date End Date Gemini Messer NP 230 [place] [address] PCP - General Family Medicine 02/08/24 Anila Faustin PharmD [address] [place] [address] Pharmacist Internal Medicine 06/05/24 [facility] 07/23/24 documented as of this encounter
--- OUTSIDE RECORDS SUMMARY | 2025-02-19 19:45 | XMS_ITS | Encounter Summary ---
Author Organization [employer] Address [address] [facility] [facility] [place] [address] [place] [address] Care Team Providers Care Botany Professor Name Role Phone Ruthie SchwarzP Primary Care Provider Yamile Ramsay GENERAL MAINTENANCE MECHANIC Primary Care Provider [phone] Gemini Messer ENVIRONMENTAL DEPARTMENT MANAGER Primary Care Provider [phone] Anila Faustin PharmD Unavailable Reason for Visit * Reason Onset Date Comments X-ray request 09/04/2023 Encounter Details Date Type Department Care Team (Late st Contact Info) Description 09/04/[address] [facility] [address] [place] [address] Ruthie Schwarz FNP [address] [place], [place] [phone] X-ray request Social History Tobacco Use Types [...] - 09/04/2023 10:57 AM EDT Tc to [facility] regarding X-ray [...] EDT Please advise, tc to Saima at [facility] requesting a chest X-ray due to PICC line verification as the line came out about an inch. Fax number is [phone]. Stated to Saima would send message to provider to get the order in and fax it. Saima verbalized understanding and agreement with plan. * Telephone Encounter - Mark Castro - 09/04/2023 9:17 AM EDT Tc from Jen at [facility]iology calling to request a chest x-ray for a PICC Line Verification states it is urgent please call Jen at [phone] documented in this encounter Plan of Treatment Upcoming Encounters Date Type Department Care Team (Late st Contact Info) Description 04/01/2025 2:30 PM EST Medication Management [facility] [address] [place] [address] PuiaElisa, PharmD [address] [place] [address] documented as of this encounter Visit Diagnoses Not on filedocumented in this encounter Care Teams Botany Professor Relationship Specialty Start Date End Date Ruthie Schwarz FNP [address] [place] [address] PCP - General Family Medicine 8/25/22 10/22/24 Yamile Ramsay FNP [address] [place] [address] PCP - General Family Medicine 01/24/24 02/01/24 Gemini Messer NP [address] [place] [address] PCP - General Family Medicine 02/08/24 Anila Faustin PharmD [address] [place] [address] Pharmacist Internal Medicine 06/05/24 [facility] 07/23/24 documented as of this encounter
--- OUTSIDE RECORDS SUMMARY | 2025-02-19 19:45 | XMS_ITS | Clinical Summary ---
Author Organization [employer] Address [address] [facility] [address] [place] [address] Care Team Providers Care Power Plant Operator Apprentice Name Role Phone Gui Gemini NOLASCO Primary Care Provider [phone] Anila Faustin PharmD Unavailable [phone] Allergies Active Allergy Reactions Criticality Noted [...] tablet 3 03/19/20 24 Active Continuous Glucose Tub Mender (FreeStyle Lenny 3 Diamondhead) deviceIndicatio ns:Type 2 diabetes mellitus with hyperglycemia, with long-term current use of insulin (HCC) 1 each Once per day. 1 each 05/06/19 25 Active Continuous Glucose Sensor (FreeStyle Lenny 3 Plus Sensor) miscIndications :Type 2 diabetes mellitus with hyperglycemia, with long-term current use of insulin (HCC) 1 each Once per day. Apply 1 sensor every 15 days 2 each 5 2:02 PM EST 05/06/19 Active metFORMIN (Glucophage) 500 MG tablet TAKE 1 TABLET BY MOUTH TWICE DAILY IN THE MORNING AND IN THE EVENING 180 tablet 3 06/15/19 25 Active Aspirin EC Adult Low Dose 81 MG EC tabletIndicatio ns:Other hyperlipidemia, Type 2 diabetes mellitus without complication, with long-term current use of insulin (HCC) TAKE 1 TABLET BY MOUTH EVERYDAY AT NOON 90 tablet 3 06/15/19 25 Active polyethylene glycol, PEG, 3350 (MiraLax) 17 GM/SCOOP powder Mix 17 grams in 8 oz of water as directed once daily PRN 527 g 2 06/26/19 Active Icosapent Ethyl (Vascepa) 1 g capsule Take 2 capsules (2 g) by mouth with breakfast and with evening meal. 120 capsule 11 5 2:02 PM EST 06/28/19 25 2025 Active Acetaminophen Extra Strength [...] hyperglycemia, with long-term current use of insulin ([facility]) TEST BG four times daily DIRECTED 100 each 07/31/19 25 2025 Active TRUEplus Lancets 33G miscIndications :Type 2 diabetes mellitus with hyperglycemia, with long-term current use of insulin ([facility]) TEST BLOOD SUGAR FOUR TIMES DAILY 100 [...] 2 diabetes mellitus treated with insulin (HCC) Inject 18 Units under the skin in the morning. 15 mL 5 5 2:02 PM EST 08/31/19 25 Active insulin pen needle (TechLite Plus Pen Volcano) 32G x 4 mm miscIndications :Diabetic nephropathy associated with type 2 diabetes mellitus (HCC) Use once daily for insulin injection, as instructed 100 each 3 5 2:02 PM EST 08/31/19 25 Active senna-docusate sodium (Senokot-S) 8.6-50 MG tablet Take 1 tablet by mouth at bedtime. 30 tablet 5 2:02 PM EST 08/31/19 25 2025 Active ketorolac (Acular) 0.5 % ophthalmic solution 09/13/19 25 Active simvastatin (Zocor) 40 MG tablet TAKE 1 TABLET BY MOUTH EVERY EVENING 90 tablet 1 10/08/19 25 Active Wixela Inhub 500-50 MCG/ACT aerosol powder INHALE 1 PUFF BY MOUTH TWICE DAILY, RINSE MOUTH AFTER USING. 60 each 3 5 2:02 PM EST 10/17/19 25 Active Alcohol Swabs (Alcohol Prep) 70 % padsIndications :Type 2 diabetes mellitus with hyperglycemia, unspecified whether intermodal dispatcher insulin use (HCC) USE DIRECTED TEST BLOOD SUGAR & INJECTING INSULIN 200 each 11 5 2:02 PM EST 11/13/19 25 Active naloxone (Narcan) 4 mg/0.1 [...] OR SHORTNESS OF BREATH 18 g 3 5 2:37 PM EST 12/25/19 25 Active omeprazole (PriLOSEC) 20 MG [...] MOUTH EVERYDAY AT NOON 90 tablet 1 01/31/20 25 Active glipiZIDE (Glucotrol) 10 MG tabletIndicatio ns:Type 2 diabetes mellitus with hyperglycemia, unspecified whether prison insulin use (HCC) TAKE 1 TABLET BY MOUTH TWICE DAILY IN THE MORNING AND IN THE EVENING BEFORE MEALS 180 tablet 1 5 2:02 PM EST 02/06/20 25 Active gabapentin (Neurontin) 800 MG tabletIndicatio ns:Type 2 diabetes mellitus treated with insulin (HCC) TAKE 1 TABLET BY MOUTH THREE TIMES DAILY IN THE MORNING, EVENING, AND BEDTIME 90 tablet 1 5 2:02 PM EST 02/06/20 25 Active Tirzepatide (Mounjaro) 10 MG/0.5ML solution auto-injectorIn dications:Type 2 diabetes mellitus with hyperglycemia, with long-term current use of insulin ([facility]) Inject 10 mg under the skin 1 (one) time per week. 2 mL 5 2:02 PM EST 02/14/20 25 Active carvedilol (Coreg) 12.5 MG tabletIndicatio ns:Primary hypertension TAKE 1 TABLET BY MOUTH TWICE DAILY IN THE MORNING AND IN THE EVENING WITH FOOD 180 tablet 1 08/09/19 25 2024 Discontinued glipiZIDE (Glucotrol) 10 MG tabletIndicatio ns:Type 2 diabetes mellitus with hyperglycemia, unspecified whether prison insulin use (HCC) TAKE 1 TABLET BY MOUTH TWICE DAILY IN THE MORNING AND IN THE EVENING BEFORE MEALS 180 tablet 1 08/09/19 25 2024 Discontinued loratadine (Claritin) 10 MG tablet TAKE 1 TABLET BY MOUTH EVERYDAY AT NOON 90 tablet 1 08/09/19 25 2024 Discontinued gabapentin (Neurontin) 800 MG tabletIndicatio ns:Type 2 diabetes mellitus treated with insulin (HCC) TAKE 1 TABLET BY MOUTH THREE TIMES DAILY IN THE MORNING, EVENING, AND BEDTIME 90 tablet 1 12/04/19 25 2024 Discontinued Tirzepatide (Mounjaro) 7.5 MG/0.5ML solution auto-injectorIn dications:Type 2 diabetes mellitus with hyperglycemia, with long-term current use of insulin ([facility]) Inject 7.5 mg under the skin 1 (one) time per week. 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[facility]) 06/03/2024 Assessment & Plan (07/25/2024 11:29 AM [...] assist with this -patient is referred to [facility] program for diabetes mellitus management Assessment & [...] at subsequent visits Ulcer of both feet ([facility]) 02/20/2024 Assessment & Plan (05/22/2024 12:17 PM [...] with PCP Stage 3 chronic kidney disease ([facility]) 021 03/22/2023 Hyperkalemia 07/02/2020 03/22/2023 Diabetic nephropathy associa alex with type 2 diabetes mellitus 07/02/2020 03/22/2023 Forgetfulness 06/30/2017 03/22/2023 Disease related peripheral neuropathy 02/10/2017 03/22/2023 Perforation of nasal septum 02/05/201503/04 Obesity 02/05/2015 03/22/2023 Nondependent opioid abuse in remission 5 03/22/2023 Mixed, or nondependent drug abuse, episodic ([facility]) 02/05/2015 03/22/2023 Hyperlipidemia associated with type 2 [...] Date Acute kidney injury 07/02/2020 03/22/2023 10/11/19 24 Moderate asthma 02/05/2015 03/22/2023 10/11/2023 Encounters Date Type Department Care Team Description 02/14/2025 Results Follow-Up [facility] [address] [place] [phone] Gemini Messer NP Glucose, Whole Blood, CBC auto differential, Lactic Acid, Additional followed-up results: 4 02/14/2025 Results Follow-Up [facility] [address] [place] [phone] Gemini Messer NP POCT Hgb A1c 02/13/2025 3:20 PM EST [facility] [address] [address] Suzy Escobar MD Diabetic infection of right foot (HCC) (Primary Dx) 02/13/2025 Orders Only GENERIC EXTERNAL DATA DEPARTMENT Provider, Generic External Data 02/13/2025 Telephone [facility] [address] [place] [phone] Dominique Hui, HAY CHOPPER Expect 02/13/2025 Travel 02/05/2025 Refill [facility] [address] [place] [address] Gemini Messer NP Type 2 diabetes mellitus with hyperglycemia, unspecified whether prison insulin use (HCC); Type 2 diabetes mellitus treated with insulin (HCC) 01/30/2025 Refill [facility] [address] [place] [address] Gemini Messer NP Primary hypertension 01/14/2025 Refill [facility] [address] [place] [phone] Gemini Messer NP Moderate persistent asthma with (acute) exacerbation 01/14/2025 Travel 01/11/2025 11:40 AM EDT [facility] [address] [address] Frank Purdy MD Moderate persistent asthma with (acute) exacerbation (Primary Dx) 01/11/2025 Travel 01/06/2025 Refill [facility] [address] [place] [address] Gemini Messer NP 12/23/2024 Refill [facility] [address] [place] [address] Gemini Messer NP Moderate asthma, unspecified whether complicated, unspecified whether persistent 12/06/2024 3:30 PM EDT Office Visit [facility] [address] [place] [address] Michael Joe DMD 12/01/2024 Refill [facility] [address] [place] [address] Gemini Messer NP Type 2 diabetes mellitus treated with insulin ([facility]) 11/22/2024 1:30 PM EDT Office Visit [facility] [address] [place] [address] Michael Joe DMD from Last 3 Months Immunizations Immunization Administration [...] 04/01/2025 2:30 PM EST Medication Management [facility] [address] [place] [address] Anila Faustin, PharmD [address] [place], [place] [phone] Health Maintenance Due Date Last Done Comments [...] Screening 02/13/2026 02/13/2025 Eye Exam 08/16/2026 08/16/2024, 08/01, 08/16/2024, Additional history exists Dental X-Ray: Full Mouth 03/26/2027 024, 12/24/2013, 12/24/2013 Zoster Vaccines Completed 04/04/2019, 01/29/2019 Pneumococcal Vaccine: 50+ Years Completed 06/25/2024, 08/13/2013 Hepatitis B Vaccines Completed 11/13/2024, 08/31/19 COVID-19 Vaccine Completed 01/14/2025, 12/2023, 06/17/2021, Additional [...] Weekly blood pressure task No Gemini Messer FIRE SUPPORT MAN Patient has chronic kidney disease Care Plan Patient has chronic kidney disease No Gemini Messer FIRE SUPPORT MAN Patient has chronic kidney disease Care Plan Patient has chronic kidney disease No Gemini Messer FIRE SUPPORT MAN Patient has chronic kidney disease Care Plan Patient has chronic kidney disease No Gemini Messer FIRE SUPPORT MAN Patient has diabetic neuropathy Care Plan Patient has diabetic neuropathy No Gemini Messer FIRE SUPPORT MAN Patient has diabetic neuropathy Care Plan Patient has diabetic neuropathy No Gemini Messer FIRE SUPPORT MAN Patient has diabetic neuropathy Care Plan Patient has diabetic neuropathy No Gemini Messer NP Weekly blood pressure task Care Plan Weekly blood pressure task No Gemini Messer FIRE SUPPORT MAN Weekly blood pressure task Care Plan Weekly blood pressure task No Gemini Messer NP Weekly blood pressure task Care Plan Weekly blood pressure task No Gemini Messer NP Patient has chronic kidney disease Care Plan Patient has chronic kidney disease No Gemini Messer FIRE SUPPORT MAN Patient has chronic kidney disease Care Plan [...] has diabetic neuropathy No Gemini Messer NP Procedures Procedure Name Priority Date/Time Associated Diagnosis Comments BLOOD CULTURE (SECOND) Routine 5 8:49 PM EST XR FOOT 3+ VIEWS RIGHT Routine 6:28 PM EST SED RATE BY MODIFIED WESTERGREN Routine 02/13/2025 5:12 PM EST C-REACTIVE PROTEIN Routine 02/13/2025 5: 12 PM EST COMPREHENSIVE METABOLIC PANEL Routine 02/13/2025 5:12 PM EST LACTIC ACID Routine 02/13/2025 5:12 PM EST CBC WITH AUTO DIFFERENTIAL Routine 02/13/2025 5:12 PM EST GLUCOSE, WHOLE BLOOD Routine 02/13/2025 5:12 PM EST BLOOD CULTURE (FIRST) Routine 02/13/2025 5:12 PM EST POCT GLYCATED HEMOGLOBIN, TOTAL Routine 02/13/2025 3:11 PM EST Type 2 diabetes mellitus with hyperglycemia, with long-term current use of insulin (HCC) CASE PRESENTATION, DETAILED AND EXTENSIVE TREATMENT PLANNING Routine 12/06/2024 3:30 PM EDT Fred COMPLETE DENTURE - MANDIBULAR Routine 12/06/2024 3:30 PM EDT Max COMPLETE DENTURE - MAXILLARY Routine 12/06/2024 3:30 PM EDT WAX TRY IN Routine 11/22/2024 1:30 PM EDT LIPID PANEL WITH REFLEX TO DIRECT LDL Routine 11/12/2024 10:51 AM EDT PANORAMIC RADIOGRAPHIC IMAGE Routine 03/25/2024 1:00 PM EST PERIODIC ORAL EVALUATION - ESTABLISHED PATIENT Routine 03/25/2024 1:00 PM EST BITEWINGS - 4 RADIOGRAPHIC IMAGES Routine 09/09/2014 12:00 AM EDT from Last 3 Months or Most Recently Relevant to Health Maintenance Results * Blood Culture (Second) (02/13/2025 8:49 PM EST) Blood Venous blood specimen / Unknown 02/13/2025 8:49 PM EST 02/13/2025 8:54 PM EST Comment:Blood Narrative [facility] - 02/18/2025 10:54 PM EST Blood Culture (Second) No growth after 5 days. Specimen Source: Blood us Generic External Data Provider LAB MICROBIOLOGY - GENERAL ORDERABLES Final Result [facility] [address] [place] [phone] * XR Foot 3+ Views Right (02/13/2025 6:28 PM EST) Anatomical Region Laterality Modality Lower Extremities, Foot Right [facility] 02/13/2025 6:28 PM EST Narrative 02/13/2025 6:29 PM EST [address] [address] XRay Report Signed Patient: Mckinley Berry MR#: [id number] 2032 : 1965 Acct:[id number] Age/Sex: 59 / M ADM Date: 02/13/25 Loc: HO.ED Attending Dr: Ordering Physician: Escobar Parker Date of Service: 02/13/25 Procedure(s): XR foot RT min 3V Accession Number(s): [id number] cc: Gemini Messer; Escobar Parker Reason for [...] in OV> 02/13/251828 DD/ 27 TD/TT: 02/13/251827 Crown Ceramist: Procedure Note Donotuseinterpreter, Image - 02/13/[address] [address] XRay Report Signed Patient: Mckinley Berry SMR#: [id number] 2031 : 1965Acct:[id number] Age/Sex: 59 / MADM Date: 02/13/25 Loc: HO.ED Attending Dr: Ordering Physician: Escobar Parker Date of Service: 02/13/25 Procedure(s): XR foot RT min 3V Accession Number(s): [id number] cc: Gemini Messer; Escobar Parker Reason for [...] in OV> 02/13/251828 DD/ 27 TD/TT: 02/13/251827 [employer]ist: [facility] External Provider IMG XR PROCEDURES Final Result * Blood Culture (First) (02/13/2025 5:12 PM EST) Blood Venous blood specimen / Unknown 02/13/2025 5:12 PM EST 02/13/2025 5:16 PM EST Comment:Blood Narrative [facility] - 02/18/2025 7:16 PM EST Blood Culture (First) No growth after 5 days. Specimen Source: Blood Generic External Data Provider LAB MICROBIOLOGY - GENERAL ORDERABLES Final Result [facility] [address] [place] [address] [phone] * (ABNORMAL) Glucose, Whole Blood (02/13/2025 5:12 PM EST) [facility] Glucose, Whole Blood 120(H) 60 - 115 mg/dL [facility] Comment:METER #: [id number] 02/13/2025 5:12 PM EST 02/13/2025 5:16 PM EST us Generic External Data Provider LAB BLOOD ORDERAB LES Final Result Performing Organization Address [facility] de Phone Number [facility] [address] [place] [phone] * (ABNORMAL) CBC auto differential (02/13/2025 5:12 PM EST) [facility] White Blood Count 9.9 4.8 - 10.8 X10*3/uL [facility] Red Blood Count 4.14(L) 4.60 - 5.80 X10*6/uL [facility] Hemoglobin 11.9(L) 14.0 - 18.0 g/dl [facility] Hematocrit 35.3(L) 42.0 - 52.0 % [facility] Mean Corpuscular Volume 85.3 80.0 - 98.0 fL [facility] Mean Corpuscular Hemoglobin 28.7 27.0 - 33.0 pg [facility] Mean Corpuscular HGB Conc 33.7 31.0 - 36.0 g/dl [facility] Red Cell Distribution Width 12.5 11.0 - 16.0 % [facility] Platelet Count 254 160 - 400 X10*3/uL [facility] Mean Platelet Volume 10.3 9.4 - 12.4 fL [facility] Neutrophils Percent Auto 67.4 45 - 73 % [facility] Imm Gran Pct Auto 0.3 0.0 - 0.4 % [facility] Lymphocytes Percent Auto 17.6(L) 20 - 40 % [facility] Monocytes Percent Auto 12.0(H) 2 - 11 % [facility] Eosinophils Percent Auto 2.3 0 - 4 % [facility] Basophils Percent Auto 0.4 0 - 2 % [facility] NRBC Pct Auto 0.0 0.0 - 0.2 /100WBC [facility] Neutrophils Absolute Auto 6.7 2.0 - 8.3 x10*3/uL [facility] Imm Gran Abs Auto 0.03 0.00 - 0.03 X10*3/uL [facility] Lymphocytes Absolute Auto 1.8 1.2 - 4.9 X10*3/uL [facility] Monocytes Absolute Auto 1.2 0.1 - 1.2 X10*3/uL [facility] Eosinophils Absolute Auto 0.2 0.0 - 0.4 X10*3/uL [facility] Basophils Absolute Auto 0.0 0.0 - 0.2 X10*3/uL [facility] NRBC Abs Auto 0.000 0.0 - 0.012 X10*3/uL [facility] 02/13/2025 5:12 PM EST 02/13/2025 5:16 PM EST us Generic External Data Provider LAB BLOOD ORDERAB LES Final Result [facility] [address] [place] [phone] * (ABNORMAL) Sed Rate by Modified Kyleren (02/13/2025 5:12 PM EST) Erythrocyte Sedimentation Rate 77(H) 0 - 15 MM/HR [facility] Comment:Patients with polycy themia and many hemoglobin abnormalitiesmay have depressed sed rates whereas patients with anemiamay have elevated sed rates. 02/13/2025 5:12 PM EST 02/13/2025 5:16 PM EST us Generic External Data Provider LAB BLOOD ORDERAB LES Final Result Performing Organization Address [facility] [employer] de Phone Number [facility] [address] [place] [phone] * (ABNORMAL) C-reactive Protein (02/13/2025 5:12 PM EST) [facility] C Reactive Protein 8.07(H) < or = 0.50 mg/dL [facility] 02/13/2025 5:12 PM EST 02/13/2025 5:16 PM EST Generic External Data Provider LAB BLOOD ORDERAB LES Final Result Performing Organization Address [facility] [employer] de Phone Number [facility] [address] [place] [phone] * Lactic Acid (02/13/2025 5:12 PM EST) [facility] Lactic Acid 0.6 0.5 - 2.0 mmol/L [facility] 02/13/2025 5:12 PM EST 02/13/2025 5:16 PM EST Generic External Data Provider LAB BLOOD ORDERAB LES Final Result Performing Organization Address [facility] de Phone Number [facility] [address] [place] [phone] * (ABNORMAL) Comprehensive Metabolic Panel (02/13/2025 5:12 PM EST) [facility] Sodium 135 135 - 145 mmol/L [facility] Potassium 4.6 3.3 - 5.1 mmol/L [facility] Chloride 98 96 - 108 mmol/L [facility] Carbon Dioxide 30(H) 22 - 29 mmol/L [facility] Anion Gap 12 12 - 20 [facility] Urea Nitrogen (BUN) 17(H) 9 - 16 mg/dL [facility] Creatinine, Serum 0.88 0.5 - 1.4 mg/dL [facility] Creatinine Clr Calc Pharmacy 114.2 [facility] Comment:eGFR (calculated fro m the MDRD study equation) and eCrCl(calculated from the Cockcroft-Gault equation) are based ondifferent parameters and may not yield comparable results.If eCrCl result is absurd, please check patient'sheight/weight. Estimated Glomerular Filt Rate >60 [facility] Comment:Chronic Kidney Disea se: Estimated GFR < 60 mL/min/1.88p5Vpfsyj Kidney Disease: Estimated GFR < 15 mL/min/1.73m2 Glucose 122(H) 60 - 115 mg/dL [facility] Calcium 9.5 8.4 - 10.2 mg/dL [facility] Bilirubin, Total 0.2 0.0 - 1.0 mg/dL [facility] Aspartate Amino Transferase 17 5 - 37 U/L [facility] Alanine Aminotransferase 16 0 - 40 U/L [facility] Total Protein 7.7 6.5 - 8.0 g/dL [facility] Albumin Level 4.2 3.5 - 5.0 g/dL [facility] Alkaline Phosphatase 84 39 - 117 U/L [facility] 02/13/2025 5:12 PM EST 02/13/2025 5:16 PM EST Generic External Data Provider LAB BLOOD ORDERAB LES Final Result [facility] [address] [place] [phone] * (ABNORMAL) POCT Hgb A1c (02/13/2025 3:11 PM EST) Hemoglobin A1C 9.4(A) 4.0 - 5.7 % Blood 02/13/2025 3:11 PM EST Gemini Messer FIRE SUPPORT MAN POINT OF CARE TEST ENTER/EDIT O RDERABLES Final Result * (ABNORMAL) Lipid Panel with Reflex to Direct LDL (11/12/2024 10:51 AM EDT) Triglycerides 224(H) <150 mg/dL [facility] Comment:Desirable Triglyceri de: less than 150 mg/dLBorderline High Triglyceride 150-199 mg/dLHigh Triglyceride: 200-499 mg/dLVery High Triglyceride: greater than or equal to 5OO mg/dL Cholesterol 133 <200 mg/dL [facility] Comment:Desirable Cholestero l: less than 200 mg/dLBorderline High Cholesterol: 200-239 mg/dLHigh Cholesterol: greater than 239 mg/dL LDL Cholesterol Calculated 51 <100 mg/dL [facility] Comment:Desirable LDL: less than 100 mg/dLNear Optimal/Above Optimal LDL: 110- 129 mg/dLBorderline High LDL: 130-159 mg/dLHigh LDL: 160-189 mg/dLVery High LDL: greater than or equal to 190 mg/dL HDL Cholesterol 38(L) >40 mg/dL [facility] Comment:Desirable HDL: great er than 40 mg/dL Note: This HDL assay may give artificially low results in patients with liver disease. 11/12/2024 10:5 1 AM EDT 11/12/2024 1:21 PM EDT Gemini Messer NP LAB BLOOD ORDERABLES Final Resu lt [facility] [address] [place] [phone] from Last 3 Months or Most [...] neuropathy 02/14/2025 Patient has diabetic neuropathy 02/14/2025 Insurance [facility]ARE < 65 * Guarantor: Mckinley Berry Account Type Relation to Patient Date of Phone Billing Address Personal/Family Self [address] [facility] [place] Care Teams Power Plant Operator Apprentice Relationship Specialty Start Date End Date Gemini Messer NP [address] [place] [address] PCP - General Family Medicine 02/08/24 Anila Faustin PharmD [address] [place] [phone] Pharmacist Internal Medicine 06/05/24 [facility] 07/23/24
--- OUTSIDE RECORDS SUMMARY | 2025-02-19 19:45 | XMS_ITS | Encounter Summary ---
Author Organization [employer] Address [address] [facility] [address] [place] [address] Care Team Providers Care Chief General Pediatric Clinic Name Role Phone Gemini Messer NP Primary Care Provider [phone] Anila Faustin PharmD Unavailable [phone] Encounter Details Date Type Department Care Team (Late st Contact Info) Description 02/14/2025 Results Follow-Up [facility] [address] [place] [address] Gemini Messer NP [address] [place] [address] Glucose, Whole Blood, CBC auto differential, Lactic Acid, Additional followed-up results: 4 Social History Tobacco Use Types Packs/Day Years [...] Description 04/01/2025 2:30 PM EST Medication Management [facility] [address] [place] [address] PuiaRickieAnila, PharmD [address] [place] [address] documented as of this encounter Goals Goal [...] Plan Patient has chronic kidney disease No Gemiin Messer NP Patient has chronic kidney disease [...] documented as of this encounter Care Teams Chief General Pediatric Clinic Relationship Specialty Start Date End Date Gemini Messer NP [address] [place] [address] PCP - General Family Medicine 02/08/24 Anila Faustin PharmD [address] [place] [address] Pharmacist Internal Medicine 06/05/24 [facility] 07/23/24 documented as of this encounter
--- OUTSIDE RECORDS SUMMARY | 2025-02-19 19:45 | XMS_ITS | Encounter Summary ---
Author Organization [employer] Address [address] [facility] [address] [place] [address] Care Team Providers Care Applique Cutter Name Role Phone Ruthie Schwarz SAND MIXER OPERATOR Primary Care Provider Yamile Ramsay SAND MIXER OPERATOR Primary Care Provider [phone] Gemini Messer FIELD ADVISOR Primary Care Provider [phone] PuiaAnila PharmD Unavailable [phone] Reason for Visit * Reason Comments Med Refill Encounter Details Date Type Department Care Team (Late st Contact Info) Description 03/15/2023 Refill [facility] [address] [place] [address] Suzy Escobar MD [address] [place], [place] [phone] Neuropathic pain; Type 2 diabetes mellitus with hyperglycemia, unspecified whether fpc insulin use ([facility]); Primary hypertension Social History Tobacco Use Types [...] Description 04/01/2025 2:30 PM EST Medication Management [facility] [address] [place] [address] Puia, Anila, PharmD [address] [place] [address] documented as of this encounter Visit Diagnoses Diagnosis Neuropathic pain Type 2 diabetes mellitus with hyperglycemia, unspecified whether fpc insulin use (HCC) Primary hypertension Unspecified essential hypertension documented in this encounter Care Teams Applique Cutter Relationship Specialty Start Date End Date Ruthie Schwarz FNP [address] [place] [address] PCP - General Family Medicine 11/25/21 01/23/24 Yamile Ramsay FNP [address] [place] [address] PCP - General Family Medicine 01/24/24 02/01/24 Gemini Messer NP [address] [place] [address] PCP - General Family Medicine 02/08/24 Anila Faustin PharmD [address] [place] [address] Pharmacist Internal Medicine 06/05/24 [facility] Care 07/23/24 documented as of this encounter
--- OUTSIDE RECORDS SUMMARY | 2025-02-19 19:45 | XMS_ITS | Encounter Summary ---
Author Organization [employer] Address [address] [facility] [address] [place] [address] Care Team Providers Care Oriental Rug Repairer Name Role Phone Gemini Messer NP Primary Care Provider [phone] Anila Faustin PharmD Unavailable [phone] Encounter Details Date Type Department Care Team ([facility] st Contact Info) Description 02/14/2025 Results Follow-Up [facility] [address] [place] [address] Gemini Messer NP [address] [place] [address] POCT Hgb A1c Social History Tobacco Use Types Packs/Day Years [...] Description 04/01/2025 2:30 PM EST Medication Management [facility] [address] [place] [address] Puia, Anila, PharmD [address] [place] [address] documented as of this encounter Goals Goal [...] Care Plan Patient has diabetic neuropathy No Puia Anila, PharmD Weekly blood pressure task Care [...] Patient has chronic kidney disease No Gemini eMsser NP Patient has chronic kidney disease Care [...] documented as of this encounter Care Teams Oriental Rug Repairer Relationship Specialty Start Date End Date Gemini Messer NP [address] [place] [address] PCP - General Family Medicine 02/08/24 Anila Faustin PharmD [address] [place] [address] Pharmacist Internal Medicine 06/05/24 [facility] Care 07/23/24 documented as of this encounter
== END 2025-02-19 11:36 | disposition home or self-care (01) ==
LOC: HO.HPODS 10:16
PROVIDERS: Visit Provider Student in an Organized Health Care Education/Training Program
DX: L97.519 Non-pressure chronic ulcer of other part of right foot with unspecified severity (principal); M86.9 Osteomyelitis, unspecified; M79.671 Pain in right foot; S92.501A Displaced unspecified fracture of right lesser toe(s), initial encounter for closed fracture
CPT/HCPCS: 97597; 99205

== ENCOUNTER 2025-02-19 10:16 | Outpatient (REF) | payer OTHER, SELFPAY | END 2025-02-19 10:17 | disposition home or self-care (01) | LOC: HO.LNP 10:16 | PROVIDERS: Visit Provider Student in an Organized Health Care Education/Training Program | DX: L97.512 Non-pressure chronic ulcer of other part of right foot with fat layer exposed (principal); M86.9 Osteomyelitis, unspecified; S92.531A Displaced fracture of distal phalanx of right lesser toe(s), initial encounter for closed fracture; X58.XXXA Exposure to other specified factors, initial encounter | CPT/HCPCS: 87070; 87077; 87186; 87205; 97597; 99202 ==

== ENCOUNTER 2025-03-18 12:19 | Emergency (ER) | payer OTHER, SELFPAY ==
--- NOTE | ~2025-03-18 | XR_ITS ---
EXAMINATION: XR CHEST CLINICAL INFORMATION: dyspnea COMPARISON: January 24, 2024 TECHNIQUE: AP view of the chest was obtained. FINDINGS: Pulmonary reticular pattern. Prominence of the interstitial lung markings. No hyperinflation. No consolidation pleural effusion or pneumothorax. Cardiomediastinal silhouette size is normal. Mild multilevel thoracic spondylosis. Degenerative changes in the acromioclavicular joints. XR/XR chest 1V IMPRESSION: Concerning acute small airway inflammatory processes versus multifocal pneumonia. Electronically signed by: Agustín Ware MD 03/18/2025 02:05 PM CHAR
[2025-03-18 12:30] VITALS: BP 119/79; BP 140/73; PULSE 100; RESP 18; TEMP 36.6; O2SAT 95; BMI 32.9
--- NOTE | 2025-03-18 13:50 | ECG_ITS ---
Test Reason : dyspnea Blood Pressure : */* mmHG Vent. Rate : 92 BPM Atrial Rate : 92 BPM P-R Int : 186 ms QRS Dur : 106 ms QT Int : 388 ms P-R-T Axes : 43 -6 19 degrees QTcB Int : 479 ms Sinus rhythm with frequent Premature ventricular complexes in a pattern of bigeminy Minimal voltage criteria for LVH, may be normal variant ( R in aVL ) Nonspecific T wave abnormality Prolonged QT Abnormal ECG When compared with ECG of 24-Jan-2024 17:38, QRS axis Shifted right QT has lengthened Referred By: Luna Hall Electronically Signed By: Vini Gil
[2025-03-18 14:00] VITALS: BP 148/67; PULSE 94; RESP 13; O2SAT 95
[2025-03-18 14:25] LABS: MANUAL DIFF FLAG NO
[2025-03-18 14:28] LABS: Hematocrit 38.3 % (42.0-52.0); Hemoglobin 12.9 g/dl (14.0-18.0); Imm Gran Abs Auto 0.03 X10*3/uL (0.00-0.03); Imm Gran Pct Auto 0.3 % (0.0-0.4); Lymphocytes Absolute Auto 1.3 X10*3/uL (1.2-4.9); Mean Corpuscular HGB Conc 33.7 g/dl (31.0-36.0); Mean Corpuscular Hemoglobin 28.7 pg (27.0-33.0); Mean Corpuscular Volume 85.1 fL (80.0-98.0); NRBC Abs Auto 0.000 X10*3/uL (0.0-0.012); NRBC Pct Auto 0.0 /100WBC (0.0-0.2); Platelet Count 176 X10*3/uL (160-400); Red Blood Count 4.50 X10*6/uL (4.60-5.80); White Blood Count 9.1 X10*3/uL (4.8-10.8)
--- NOTE | 2025-03-18 14:37 | ED.GENADULT ---
HPI - General Adult General Chief complaint: Dyspnea Stated complaint: SOB ax, BGL 400, PVC & bi-geminial rhythm Time Seen by Provider: 03/18/25 13:57 Source: patient Mode of arrival: ambulatory Limitations: no limitations History of Present Illness ED Provider: Dr. Sweet HPI narrative: 59 yo male history of anxiety and diabetes presented hospital today for evaluation of diarrhea anxiety attack. Patient is currently asymptomatic. He states he does not have any shortness of breath or chest pain. He has no more anxiety at this time. He did take a dose of sertraline and hydroxyzine which did help. He is requesting to be discharged at this time. Related Data Home Medications ?Medication ?Instructions ?Recorded ?Confirmed acetaminophen 500 mg capsule 500 mg PO Q8H PRN Pain (Scale 10/17/22 08/09/23 (Mapap (acetaminophen)) Score 1-3) albuterol sulfate 90 mcg/actuation 2 puff inhalation QID PRN 10/17/22 08/09/23 aerosol inhaler (Ventolin HFA) Shortness Of Breath amitriptyline 50 mg tablet 50 mg PO BEDTIME 10/17/22 08/09/23 aspirin 81 mg tablet,delayed 81 mg PO DAILY@1200 10/17/22 08/09/23 release carvedilol 12.5 mg tablet 12.5 mg PO BID 10/17/22 08/09/23 fenofibrate 160 mg tablet 160 mg PO DAILY 10/17/22 08/09/23 fluticasone propionate 50 2 spray intranasal DAILY 10/17/22 08/09/23 mcg/actuation nasal spray,suspension gabapentin 800 mg tablet 800 mg PO TID 10/17/22 08/09/23 glipizide 10 mg tablet 10 mg PO BIDAC 10/17/22 08/09/23 hydroxyzine pamoate 50 mg capsule 50 mg PO TID PRN Anxiety 10/17/22 08/09/23 insulin aspart U-100 100 unit/mL See Protocol subcut TIDAC 10/17/22 08/09/23 (3 mL) subcutaneous pen (Novolog FlexPen U-100 Insulin aspart) ipratropium 0.5 mg-albuterol 3 mg 3 ml inhalation QID PRN Shortness 10/17/22 08/09/23 (2.5 mg base)/3 mL nebulization Of Breath soln loratadine 10 mg tablet 10 mg PO DAILY@1200 10/17/22 08/09/23 omeprazole 20 mg capsule,delayed 20 mg PO BID@0630,1630 10/17/22 08/09/23 release quetiapine 25 mg tablet 25 mg PO BID PRN anxiety 10/17/22 08/09/23 quetiapine 300 mg tablet 300 mg PO BEDTIME 10/17/22 08/09/23 sertraline 100 mg tablet 100 mg PO DAILY 10/17/22 08/09/23 simvastatin 40 mg tablet 40 mg PO QPM 10/17/22 08/09/23 methadone 10 mg/mL oral 75 mg PO DAILY 10/18/22 08/12/23 concentrate (Methadone Intensol) Previous Rx's ?Medication ?Instructions ?Recorded fluticasone 500 mcg-salmeterol 50 1 ea inhalation BID #60 caps 06/23/21 mcg/dose blistr powdr for inhalation ertapenem 1 gram solution for 1 g IV DAILY #41 ea 08/14/23 injection insulin glargine 100 unit/mL (3 25 unit (0.25 mL) subcut BEDTIME 08/14/23 mL) subcutaneous pen (Lantus #15 mL Solostar U-100 Insulin) ertapenem 1 gram solution for 1 g IV DAILY #22 ea 09/06/23 injection doxycycline hyclate 100 mg capsule 100 mg PO BID 30 days #60 caps 09/25/23 doxycycline hyclate 100 mg capsule 100 mg PO BID 30 days #60 caps 02/14/25 doxycycline hyclate 100 mg capsule 100 mg PO BID 7 days #14 caps 03/18/25 Allergies Allergy/AdvReac Type Severity Reaction Status Date / Time bee pollen (BEE STINGS) Allergy Severe THROAT Verified 03/18/25 12:34 SWELLING raspberry (RASPBERRY) Allergy Severe UNKNOWN Verified 03/18/25 12:34 tadalafil (From CIALIS) Allergy Severe ANAPHYLAXIS Verified 03/18/25 12:34 wool Allergy Intermediate RASH Verified 03/18/25 12:34 Review of Systems Review of Systems: Pertinent review of systems as mentioned in HPI. All other system otherwise negative. [facility] Past Medical History [facility] Narrative: Medical history as mentioned in HPI Medical History (Updated 03/18/25 @ 15:18 by Ting Ho Sweet, DO) Fracture of second toe, right, closed Right foot pain Osteomyelitis of right foot Non-pressure chronic ulcer of other part of right foot with unspecified severity Diarrhea Moderate persistent asthma Depression Anxiety GERD (gastroesophageal reflux disease) Diabetes Asthma Substance abuse Surgical History No pertinent past surgical history Family History Family History Father Diabetes mellitus Alcohol abuse Social History Social History Household Members: Family Housing: House Do you presently have visiting nurse or other home services: No Patient Tobacco Use Status: Never used Tobacco Substance Use Type: Marijuana Advance Directives: No Advance Directives Information Provided: Yes service: No Physical Exam ED Exam Exam: General: Pleasant, no distress, interacting appropriately Head: Normacephalic, atraumatic ENT: oral mucosa moist, neck supple, no tracheal deviation Cardiovascular: regular rate, regular rhythm, no murmurs, rubbing, gallops Respiratory: CTAB, no wheeze, rales, rhonchi Extremities: No limb pain or swelling, no calf tenderness Neurological: Awake and alert, no facial droop noted Skin: Warm and dry Psychiatric: Appropriate mood and thoughts Vital Signs: Vital Signs - 24 hr 03/18/25 12:30 03/18/25 14:00 Temperature 97.8 F Pulse Rate 100 94 Respiratory Rate 18 13 Blood Pressure 140/73 H 148/67 H Pulse Oximetry 95 95 Oxygen Delivery Method Room Air Room Air BMI result Body Mass Index 32.9 Medical Decision Making Medical Decision Making MDM Narrative: 59-year-old male presented hospital today for evaluation of his anxiety attack. Patient is asymptomatic. Cardiac workup was obtained prior to my evaluation. No sign of STEMI on EKG. Patient's CBC shows slight anemia at 12.9, patient sodium level is low at 128 however this is secondary to his hyperglycemia. Sugar at 365. Corrected sodium level with hyperglycemia is 132. Chest x-ray did show possible pneumonia. We will plan to give patient a dose of doxycycline. No sign tachypnea or hypoxia on exam. Patient's EKG does show some signs of bigeminy. No sign of acute ischemic changes. Patient appears to be well on my exam. Patient will be discharged home. Troponins negative I reviewed the rhythm strip on the monitor. He is currently on sinus rhythm. Differential Diagnosis Differential Diagnoses: The differential diagnosis associated with the presentation includes Anxiety attack, cardiac arrhythmia, ACS Lab Data MDM Lab Attestation statement: I reviewed the patient's lab results. 03/18/25 14:15 03/18/25 14:15 Labs: Lab Results 03/18/25 Range/Units 14:15 WBC 9.1 (4.8-10.8) X10*3/uL RBC 4.50 L (4.60-5.80) X10*6/uL Hgb 12.9 L (14.0-18.0) g/dl Hct 38.3 L (42.0-52.0) % MCV 85.1 (80.0-98.0) fL MCH 28.7 (27.0-33.0) pg MCHC 33.7 (31.0-36.0) g/dl RDW 13.3 (11.0-16.0) % Plt Count 176 D (160-400) X10*3/uL MPV 11.8 (9.4-12.4) fL Immature Gran % (Auto) 0.3 (0.0-0.4) % Neut % (Auto) 75.5 H (45-73) % Lymph % (Auto) 14.1 L (20-40) % [place] % (Auto) 8.7 (2-11) % Eos % (Auto) 1.0 (0-4) % Baso % (Auto) 0.4 (0-2) % Lymph # (Auto) 1.3 (1.2-4.9) X10*3/uL [place] # (Auto) 0.8 (0.1-1.2) X10*3/uL Eos # (Auto) 0.1 (0.0-0.4) X10*3/uL Baso # (Auto) 0.0 (0.0-0.2) X10*3/uL Abs Immat Gran (auto) 0.03 (0.00-0.03) X10*3/uL Absolute Neuts (auto) 6.9 (2.0-8.3) x10*3/uL Absolute Nucleated RBC 0.000 (0.0-0.012) X10*3/uL Nucleated RBC % (auto) 0.0 (0.0-0.2) /100WBC PT 11.8 (11.2-13.5) SEC INR 1.0 (0.9-1.1) Sodium 128 L (135-145) mmol/L Potassium 5.0 (3.3-5.1) mmol/L Chloride 99 (96-108) mmol/L Carbon Dioxide 23 (22-29) mmol/L Anion Gap 11 L (12-20) BUN 20 H (9-16) mg/dL Creatinine 0.90 (0.5-1.4) mg/dL Estim Creat Clear Calc 111.9 Estimated GFR > 60 Random Glucose 365 H* (60-115) mg/dL Calcium 9.0 (8.4-10.2) mg/dL Magnesium 1.8 (1.6-2.6) mg/dL Total Bilirubin 0.3 (0.0-1.0) mg/dL Direct Bilirubin 0.1 (0.0-0.5) mg/dL AST 21 (5-37) U/L ALT 20 (0-40) U/L Alkaline Phosphatase 83 (39-117) U/L Troponin I High Sens 5.9 D (<3.5-35.0) ng/L Total Protein 7.1 (6.5-8.0) g/dL Albumin 4.1 (3.5-5.0) g/dL Influenza Type A (PCR) NEGATIVE (Negative) Influenza Type B (PCR) NEGATIVE (Negative) RSV RNA Qual (PCR) NEGATIVE (Negative) SARS-CoV-2 RNA (RT-PCR) NEGATIVE (Negative) Independent Interpretation I performed an independent interpretation of an: EKG and Plain X-Ray Radiology Impression Discussion of test interpretation with radiology: I have reviewed the radiologist's reading. Prescription Management I considered prescription management with: Antibiotic Chronic Conditions Patient?s care impacted by: Diabetes Discharge Plan Discharge Clinical Impression: Pneumonia, Hyperglycemia Patient Disposition: Home, Self-Care Additional Instructions: Follow up with your primary care doctor. Prescriptions: New doxycycline hyclate 100 mg capsule 100 mg PO BID 7 Days Qty: 14 0RF No Action fluticasone propion-salmeterol 500-50 mcg/dose blister with device 1 ea inhalation BID Qty: 60 6RF quetiapine 25 mg tablet 25 mg PO BID PRN (Reason: anxiety) carvedilol 12.5 mg tablet 12.5 mg PO BID ipratropium-albuterol 0.5 mg-3 mg(2.5 mg base)/3 mL solution for nebulization 3 ml inhalation QID PRN (Reason: Shortness Of Breath) quetiapine 300 mg tablet 300 mg PO BEDTIME glipizide 10 mg tablet 10 mg PO BIDAC sertraline 100 mg tablet 100 mg PO DAILY hydroxyzine pamoate 50 mg capsule 50 mg PO TID PRN (Reason: Anxiety) aspirin 81 mg tablet,delayed release (DR/EC) 81 mg PO DAILY@1200 amitriptyline 50 mg tablet 50 mg PO BEDTIME simvastatin 40 mg tablet 40 mg PO QPM gabapentin 800 mg tablet 800 mg PO TID omeprazole 20 mg capsule,delayed release(DR/EC) 20 mg PO BID@0630,1630 albuterol sulfate [Ventolin HFA] 90 mcg/actuation HFA aerosol inhaler 2 puff INHALATION QID PRN (Reason: Shortness Of Breath) fluticasone propionate 50 mcg/actuation spray,suspension 2 spray intranasal DAILY acetaminophen [Mapap (acetaminophen)] 500 mg capsule 500 mg PO Q8H PRN (Reason: Pain (Scale Score 1-3)) loratadine 10 mg tablet 10 mg PO DAILY@1200 insulin aspart U-100 [Novolog FlexPen U-100 Insulin] 100 unit/mL (3 mL) insulin pen See Protocol subcut TIDAC Protocol: Insulin Correction Scale Less than or equal to 110 ---- Give (units): 0 111 to 150 Give (units): 0 151 to 200 Give (units): 2 201 to 250 Give (units): 4 251 to 300 Give (units): 6 301 to 350 Give (units): 8 Greater than 350 Give (units): 10 Call MD if Blood Glucose > : 350 Rx Instructions: SLIDING SCALE 100-149=12 UNITS, 150-199=14 UNITS, 200-249=16 UNITS, 250-299=18 UNITS, 300 AND ABOVE-20 UNITS fenofibrate 160 mg tablet 160 mg PO DAILY methadone [Methadone Intensol] 10 mg/mL Concentrate 75 mg PO DAILY insulin glargine [Lantus Solostar U-100 Insulin] 100 unit/mL (3 mL) insulin pen 25 unit subcut BEDTIME Qty: 15 0RF ertapenem 1 gram recon soln 1 g IV DAILY Qty: 41 0RF Rx Instructions: ending 07/25 ertapenem 1 gram recon soln 1 g IV DAILY Qty: 22 0RF doxycycline hyclate 100 mg capsule 100 mg PO BID 30 Days Qty: 60 0RF doxycycline hyclate 100 mg capsule 100 mg PO BID 30 Days Qty: 60 0RF Print Language: Thai
[2025-03-18 14:38] LABS: INTERNATIONAL NORM RATIO 1.0 (0.9-1.1); Prothrombin Time 11.8 SEC (11.2-13.5)
[2025-03-18 14:56] LABS: Troponin-I High Sensitivity 5.9 ng/L (<3.5-35.0)
[2025-03-18 14:59] LABS: Alanine Aminotransferase 20 U/L (0-40); Albumin Level 4.1 g/dL (3.5-5.0); Alkaline Phosphatase 83 U/L (39-117); Anion Gap 11 (12-20); Aspartate Amino Transferase 21 U/L (5-37); Blood Urea Nitrogen 20 mg/dL (9-16); Calcium 9.0 mg/dL (8.4-10.2); Carbon Dioxide 23 mmol/L (22-29); Chloride 99 mmol/L (96-108); Creatinine Clr Calc Pharmacy 111.9; Estimated Glomerular Filt Rate > 60; Magnesium 1.8 mg/dL (1.6-2.6); Potassium 5.0 mmol/L (3.3-5.1); Sodium 128 mmol/L (135-145); Total Protein 7.1 g/dL (6.5-8.0)
[2025-03-18 15:12] LABS: Resp Syncy Virus RNA Qual PCR NEGATIVE (Negative); SARS COV2 PCR INHOUSE NEGATIVE (Negative)
[2025-03-18 15:57] VITALS: BP 148/67; PULSE 94; RESP 13; TEMP 36.3; O2SAT 95
--- OUTSIDE RECORDS SUMMARY | 2025-03-18 16:47 | XMS_ITS | Encounter Summary ---
Author Organization [employer] Address [address] [facility] [address] [place] [address] Care Team Providers Care Clean Room Technician Name Role Phone Gemini Messer NP Primary Care Provider [phone] Anila Faustin PharmD Unavailable Encounter Details Date Type Department Care Team (Late st Contact Info) Description 05/16/2024 Orders Only [facility] [address] [place], [place] [phone] Gemini Messer NP [address] [place] [address] Social History Tobacco Use Types Packs/Day Years [...] Description 04/01/2025 2:30 PM EST Medication Management [facility] [address] [place] [address] Anila Faustin PharmD [address] [place] [address] 08/18/2025 2:00 PM EDT Office Visit [facility] [address] [place] [address] TarkaClarissa, OD [address] [place] [address] documented as of this encounter Visit Diagnoses Not on filedocumented in this encounter Additional Health Concerns Assessment Noted Time PHQ-9 Depression Total Score: 11 025 1:12 PM EST documented as of this encounter Care Teams Clean Room Technician Relationship Specialty Start Date End Date Gemini Messer NP [address] [place] [address] PCP - General Family Medicine 02/08/24 Anila Faustin, PharmD [address] [place] [address] Pharmacist Internal Medicine 06/05/24 [facility] 07/23/24 documented as of this encounter
--- OUTSIDE RECORDS SUMMARY | 2025-03-18 16:47 | XMS_ITS | Encounter Summary ---
Author Organization [employer] Address [address] [facility] 7t [place] [address] Care Team Providers Care Sequins Slinger Name Role Phone Gemini Messer GAURAV Primary Care Provider [phone] Anila Faustin PharmD Unavailable [phone] Encounter Details Date Type Department Care Team (Late st Contact Info) Description 03/18/2025 Orders Only GENERIC EXTERNAL DATA DEPARTMENT Provider, [...] Description 04/01/2025 2:30 PM EST Medication Management [facility] [address] [place] [address] Puia, Anila, PharmD [address] [place] [address] 08/18/2025 2:00 PM EDT Office Visit [facility] OPTOMETRY [address] [place] [address] TarkaClarissa, OD [address] [place] [address] documented as of this encounter Goals Goal [...] Patient has chronic kidney disease No Gemini Messer, MAIL CENSOR Patient has chronic kidney disease Care Plan Patient has chronic kidney disease No Gemini Messer, MAIL CENSOR Patient has chronic kidney disease Care Plan Patient has chronic kidney disease No Gemini Messer, MAIL CENSOR Patient has diabetic neuropathy Care Plan Patient has diabetic neuropathy No Gemini Messer, MAIL CENSOR Patient has diabetic neuropathy Care Plan Patient has diabetic neuropathy No Gemini Messer, MAIL CENSOR Patient has diabetic neuropathy Care Plan Patient has diabetic neuropathy No Gemini Messer MAIL CENSOR Weekly blood pressure task Care Plan Weekly blood pressure task No Gemini Messer MAIL CENSOR Weekly blood pressure task Care Plan Weekly blood pressure task No Gemini Messer MAIL CENSOR Weekly blood pressure task Care Plan Weekly blood pressure task No Gemini Messer MAIL CENSOR Patient has chronic kidney disease Care Plan Patient has chronic kidney disease No Gemini Messer, MAIL CENSOR Patient has chronic kidney disease Care Plan Patient has chronic kidney disease No Gemini Messer, MAIL CENSOR Patient has chronic kidney disease Care Plan Patient has chronic kidney disease No Gemini Messer MAIL CENSOR Patient has diabetic neuropathy Care Plan Patient has diabetic neuropathy No Gemini Messer MAIL CENSOR Patient has diabetic neuropathy Care Plan Patient has diabetic neuropathy No Gemini Messer MAIL CENSOR Patient has diabetic neuropathy Care Plan Patient has diabetic neuropathy No Gemini Messer NP Weekly blood pressure task Care Plan Weekly blood pressure task No Elliot Anthony Weekly blood pressure task Care Plan Weekly blood pressure task No Elliot Anthony Weekly blood pressure task Care Plan Weekly blood pressure task No Elliot Anthony Patient has chronic kidney disease Care Plan Patient has chronic kidney disease No Elliot Anthony Patient has chronic kidney disease Care Plan Patient has chronic kidney disease No Elliot Anthony Patient has chronic kidney disease Care Plan Patient has chronic kidney disease No Elliot Anthony Patient has diabetic neuropathy Care Plan Patient has diabetic neuropathy No Elliot Anthony Patient has diabetic neuropathy Care Plan Patient has diabetic neuropathy No Elliot Anthony Patient has diabetic neuropathy Care Plan Patient has diabetic neuropathy No Elliot Anthony Weekly blood pressure task Care Plan Weekly blood pressure task No Yaneth Celestin MA Weekly blood pressure task Care Plan Weekly blood pressure task No Yaneth Celestin HI Weekly blood pressure task Care Plan Weekly blood pressure task No Yaneth Celestin HI Patient has chronic kidney disease Care Plan Patient has chronic kidney disease No Yaneth Celestin, [place] Patient has chronic kidney disease Care Plan Patient has chronic kidney disease No Yaneth Celestin HI Patient has chronic kidney disease Care Plan Patient has chronic kidney disease No Yaneth Celestin, [place] Patient has diabetic neuropathy Care Plan Patient has diabetic neuropathy No Yaneth Celestin [place] Patient has diabetic neuropathy Care Plan Patient has diabetic neuropathy No Yaneth Celestin [place] Patient has diabetic neuropathy Care Plan Patient has diabetic neuropathy No Yaneth Celestin HI Weekly blood pressure task Care Plan Weekly [...] Care Plan Weekly blood pressure task No Karla Barnes RN Weekly blood pressure task Care Plan Weekly blood pressure task No Karla Barnes RN Weekly blood pressure task Care Plan Weekly blood pressure task No Karla Barnes RN Patient has chronic kidney disease Care Plan Patient has chronic kidney disease No Karla Barnes RN Patient has chronic kidney disease Care Plan Patient has chronic kidney disease No Karla Barnes RN Patient has chronic kidney disease Care Plan Patient has chronic kidney disease No Karla Barnes RN Patient has diabetic neuropathy Care Plan Patient has diabetic neuropathy No Karla Barnes RN Patient has diabetic neuropathy Care Plan Patient has diabetic neuropathy No Karla Barnes RN Patient has diabetic neuropathy Care Plan Patient has diabetic neuropathy No Karla Barnes RN Weekly blood pressure task Care Plan Weekly blood pressure task No Zenia, Payton, NON LICENSED OPERATOR Weekly blood pressure task Care Plan Weekly blood pressure task No Zenia, Payton, NON LICENSED OPERATOR Weekly blood pressure task Care Plan Weekly blood pressure task No Zenia, Payton, NON LICENSED OPERATOR Patient has chronic kidney disease Care Plan Patient has chronic kidney disease No Zenia, Payton, NON LICENSED OPERATOR Patient has chronic kidney disease Care Plan Patient has chronic kidney disease No Zenia, Payton, NON LICENSED OPERATOR Patient has chronic kidney disease Care Plan Patient has chronic kidney disease No Zenia, Payton, NON LICENSED OPERATOR Patient has diabetic neuropathy Care Plan Patient has diabetic neuropathy No Zenia, Payton, NON LICENSED OPERATOR Patient has diabetic neuropathy Care Plan Patient has diabetic neuropathy No Zenia Payton, NON LICENSED OPERATOR Patient has diabetic neuropathy Care Plan Patient has diabetic neuropathy No Zenia Payton, NON LICENSED OPERATOR Weekly blood pressure task Care Plan Weekly blood pressure task No Karla Barnes RN Weekly blood pressure task Care Plan Weekly blood pressure task No Karla Barnes RN Weekly blood pressure task Care Plan Weekly blood pressure task No Karla Barnes RN Patient has chronic kidney disease Care Plan Patient has chronic kidney disease No Karla Barnes RN Patient has chronic kidney disease Care Plan Patient has chronic kidney disease No Karla Barnes RN Patient has chronic kidney disease Care Plan Patient has chronic kidney disease No Karla Barnes RN Patient has diabetic neuropathy Care Plan Patient has diabetic neuropathy No Krala Barnes RN Patient has diabetic neuropathy Care Plan Patient has diabetic neuropathy No Karla Barnes RN Patient has diabetic neuropathy Care Plan Patient has diabetic neuropathy No Karla Barnes RN documented as of this encounter Procedures Procedure Name Priority Date/Time Associated Diagnosis Comments HIGH SENSITIVITY TROPONIN I Routine 03/18/2025 2:15 PM EST SARS COV2/INFLUENZA A/B AND RSV RNA QL NAAT Routine 03/18/2025 2:15 PM EST CBC WITH AUTO DIFFERENTIAL Routine 03/18/2025 2:15 PM EST PROTHROMBIN TIME-INR Routine 03/18/2025 2:15 PM EST MAGNESIUM Routine 03/18/2025 2:15 PM EST HEPATIC FUNCTION PANEL Routine 03/18/2025 2:15 PM EST BASIC METABOLIC PANEL Routine 03/18/2025 2:15 PM EST documented in this encounter Results * SARS-CoV-2 RNA, Influenza A/B, and RSV RNA, Ql NAAT (03/18/2025 2:15 PM EST) Influenza A PCR NEGATIVE Negative [facility] Influenza B PCR NEGATIVE Negative [facility] Resp Syncy Virus RNA Qual PCR NEGATIVE Negative [facility] SARS COV2 PCR NEGATIVE Negative [facility] Comment:All test results mus t be correlated with clinical findings.Negative results do not preclude SARS-CoV2, influenza Avirus, influenza B virus and/or RSV infectionand should not be used as the sole basis for treatment orother patient management decisions. Negative results must becombined with clinical observations, patient history, andepidemiological information.This test has not been evaluated for monitoring treatment ofinfection.This test has been authorized by the FDA under an EmergencyUse Authorization (EUA) for use by authorized laboratories.Testing performed on the [employer] GeneXpert utilizingreal-time RT-PCR.All SARS CoV2 and positive influenza A/B results arereported to [facility]. 03/18/2025 2:15 PM EST 03/18/2025 2:22 PM EST us Generic External Data Provider LAB MICROBIOLOGY - GENERAL ORDERABLES Final Result [facility] [address] [place] [phone] * Magnesium (03/18/2025 2:15 PM EST) Magnesium 1.8 1.6 - 2.6 mg/dL [facility] 03/18/2025 2:15 PM EST 03/18/2025 2:22 PM EST us Generic External Data Provider LAB BLOOD ORDERAB LES Final Result [facility] [address] [place] [address] [phone] * (ABNORMAL) Basic Metabolic Panel (03/18/2025 2:15 PM EST) Sodium 128(L) 135 - 145 mmol/L [facility] Potassium 5.0 3.3 - 5.1 mmol/L [facility] Chloride 99 96 - 108 mmol/L [facility] Carbon Dioxide 23 22 - 29 mmol/L [facility] Anion Gap 11(L) 12 - 20 [facility] Urea Nitrogen (BUN) 20(H) 9 - 16 mg/dL [facility] Creatinine, Serum 0.90 0.5 - 1.4 mg/dL [facility] Creatinine Clr Calc Pharmacy 111.9 [facility] Comment:eGFR (calculated fro m the MDRD study equation) and eCrCl(calculated from the Cockcroft-Gault equation) are based ondifferent parameters and may not yield comparable results.If eCrCl result is absurd, please check patient'sheight/weight. Estimated Glomerular Filt Rate >60 [facility] Comment:Chronic Kidney Disea se: Estimated GFR < 60 mL/min/1.38w8Gihgyl Kidney Disease: Estimated GFR < 15 mL/min/1.73m2 Glucose 365(HH) 60 - 115 mg/dL [facility] Comment:Critical value for G LUR: Results called to and read anitay: MARCIAL Person calling: RENE Date: 03/18/25 Time: 1459 Calcium 9.0 8.4 - 10.2 mg/dL [facility] 03/18/2025 2:15 PM EST 03/18/2025 2:22 PM EST us Generic External Data Provider LAB BLOOD ORDERAB LES Final Result Performing Organization Address City/[facility] Co de Phone Number [facility] [address] [place] [address] [phone] * Hepatic Function Panel (03/18/2025 2:15 PM EST) Bilirubin, Total 0.3 0.0 - 1.0 mg/dL [facility] Bilirubin, Direct 0.1 0.0 - 0.5 mg/dL [facility] Aspartate Amino Transferase 21 5 - 37 U/L [facility] Alanine Aminotransferase 20 0 - 40 U/L [facility] Total Protein 7.1 6.5 - 8.0 g/dL [facility] Albumin Level 4.1 3.5 - 5.0 g/dL [facility] Alkaline Phosphatase 83 39 - 117 U/L [facility] 03/18/2025 2:15 PM EST 03/18/2025 2:22 PM EST us Generic External Data Provider LAB BLOOD ORDERAB LES Final Result Performing Organization Address [facility] de Phone Number [facility] [address] [place] [phone] * High Sensitivity Troponin I (03/18/2025 2:15 PM EST) Pathologist [facility] TROPONIN I HIGH SENSITIVITY 5.9 <3.5 - 35.0 ng/L [facility] Comment:The Rosenthal high sens itivity Troponin-I results should beused in conjunction with other diagnostic information suchas ECG, clinical observations and information, and patientsymptoms to aid in the diagnosis of [place]. 03/18/2025 2:15 PM EST 03/18/2025 2:22 PM EST us Generic External Data Provider LAB BLOOD ORDERAB LES Final Result Performing Organization Address [facility] Co de Phone Number [facility] [address] [place] [address] [phone] * Prothrombin Time-INR (03/18/2025 2:15 PM EST) Pathologist [facility] Prothrombin Time 11.8 11.2 - 13.5 SEC [facility] INTERNATIONAL NORM RATIO 1.0 0.9 - 1.1 [facility] Comment:INTERNATIONAL NORMAL IZED RATIO (INR) REFERENCE RANGES Reference RangeFor patients not on anticoagulant therapy: 0.9 - 1.1INR ranges for oral anticoagulanttherapy:For prevention and treatment of venous thrombosis and pulmonary embolism: 2.0 - 3.0For acute myocardial infarction with aspirin therapy: 2.0 - 3.0For acute myocardial infarction without aspirin therapy: 3.0 - 4.0For patients with mechanical prosthetic heart valves: 2.5 - 3.5 03/18/2025 2:15 PM EST 03/18/2025 2:22 PM EST us Generic External Data Provider LAB BLOOD ORDERAB LES Final Result Performing Organization Address City/State/[facility] Co de Phone Number [facility] [address] [place] [phone] * (ABNORMAL) CBC auto differential (03/18/2025 2:15 PM EST) [facility] [address] White Blood Count 9.1 4.8 - 10.8 X10*3/uL [facility] Red Blood Count 4.50(L) 4.60 - 5.80 X10*6/uL [facility] Hemoglobin 12.9(L) 14.0 - 18.0 g/dl [facility] Hematocrit 38.3(L) 42.0 - 52.0 % [facility] Mean Corpuscular Volume 85.1 80.0 - 98.0 fL [facility] Mean Corpuscular Hemoglobin 28.7 27.0 - 33.0 pg [facility] Mean Corpuscular HGB Conc 33.7 31.0 - 36.0 g/dl [facility] Red Cell Distribution Width 13.3 11.0 - 16.0 % [facility] Platelet Count 176 160 - 400 X10*3/uL [facility] Mean Platelet Volume 11.8 9.4 - 12.4 fL [facility] Neutrophils Percent Auto 75.5(H) 45 - 73 % [facility] Imm Gran Pct Auto 0.3 0.0 - 0.4 % [facility] Lymphocytes Percent Auto 14.1(L) 20 - 40 % [facility] Monocytes Percent Auto 8.7 2 - 11 % [facility] Eosinophils Percent Auto 1.0 0 - 4 % [facility] Basophils Percent Auto 0.4 0 - 2 % [facility] NRBC Pct Auto 0.0 0.0 - 0.2 /100WBC [facility] Neutrophils Absolute Auto 6.9 2.0 - 8.3 x10*3/uL [facility] Imm Gran Abs Auto 0.03 0.00 - 0.03 X10*3/uL [facility] Lymphocytes Absolute Auto 1.3 1.2 - 4.9 X10*3/uL [facility] Monocytes Absolute Auto 0.8 0.1 - 1.2 X10*3/uL [facility] Eosinophils Absolute Auto 0.1 0.0 - 0.4 X10*3/uL [facility] Basophils Absolute Auto 0.0 0.0 - 0.2 X10*3/uL [facility] NRBC Abs Auto 0.000 0.0 - 0.012 X10*3/uL [facility] 03/18/2025 2:15 PM EST 03/18/2025 2:22 PM EST us Generic External Data Provider LAB BLOOD ORDERAB LES Final Result [facility] [address] [place] [phone] documented in this encounter Visit Diagnoses [...] diabetic neuropathy 02/14/2025 Weekly blood pressure task 02/20/2025 Weekly blood pressure task 02/20/2025 Weekly blood pressure task 02/20/2025 Patient has chronic kidney disease 02/20/2025 Patient has chronic kidney disease 02/20/2025 Patient has chronic kidney disease 02/20/2025 Patient has diabetic neuropathy 02/20/2025 Patient has diabetic neuropathy 02/20/2025 Patient has diabetic neuropathy 02/20/2025 Weekly blood pressure task 02/24/2025 Weekly blood pressure task 02/24/2025 Weekly blood pressure task 02/24/2025 Patient has chronic kidney disease 02/24/2025 Patient has chronic kidney disease 02/24/2025 Patient has chronic kidney disease 02/24/2025 Patient has diabetic neuropathy 02/24/2025 Patient has diabetic neuropathy 02/24/2025 Patient has diabetic neuropathy 02/24/2025 Weekly blood pressure task 02/25/2025 Weekly blood pressure task 02/25/2025 Weekly blood pressure task 02/25/2025 Patient has chronic kidney disease 02/25/2025 Patient has chronic kidney disease 02/25/2025 Patient has chronic kidney disease 02/25/2025 Patient has diabetic neuropathy 02/25/2025 Patient has diabetic neuropathy 02/25/2025 Patient has diabetic neuropathy 02/25/2025 Weekly blood pressure task 02/25/2025 Weekly blood pressure task 02/25/2025 Weekly blood pressure task 02/25/2025 Patient has chronic kidney disease 02/25/2025 Patient has chronic kidney disease 02/25/2025 Patient has chronic kidney disease 02/25/2025 Patient has diabetic neuropathy 02/25/2025 Patient has diabetic neuropathy 02/25/2025 Patient has diabetic neuropathy 02/25/2025 Weekly blood pressure task 03/03/2025 Weekly blood pressure task 03/03/2025 Weekly blood pressure task 03/03/2025 Patient has chronic kidney disease 03/03/2025 Patient has chronic kidney disease 03/03/2025 Patient has chronic kidney disease 03/03/2025 Patient has diabetic neuropathy 03/03/2025 Patient has diabetic neuropathy 03/03/2025 Patient has diabetic neuropathy 03/03/2025 Weekly blood pressure task 03/06/2025 Weekly blood pressure task 03/06/2025 Weekly blood pressure task 03/06/2025 Patient has chronic kidney disease 03/06/2025 Patient has chronic kidney disease 03/06/2025 Patient has chronic kidney disease 03/06/2025 Patient has diabetic neuropathy 03/06/2025 Patient has diabetic neuropathy 03/06/2025 Patient has diabetic neuropathy 03/06/2025 Assessment Noted Time PHQ-9 Depression Total Score: 11 025 1:12 PM EST documented as of this encounter Care Teams Sequins Slinger Relationship Specialty Start Date End Date Gemini Messer NP [address] [place] [address] PCP - General Family Medicine 02/08/24 Anila Faustin PharmD [address] [place] [address] Pharmacist Internal Medicine 06/05/24 [facility] 07/23/24 documented as of this encounter
--- OUTSIDE RECORDS SUMMARY | 2025-03-18 16:47 | XMS_ITS | Encounter Summary ---
Author Organization [employer] Address [address] [facility] 7t [place] [address] Care Team Providers Care Etched Circuit Processor Name Role Phone Ruthie SchwarzP Primary Care Provider Yamile Ramsay SHIPYARD PAINTING SUPERVISOR Primary Care Provider [phone] Gemini Messer ASSISTANT PROFESSOR OF MUSIC Primary Care Provider [phone] Anila Faustin PharmD Unavailable Reason for Visit * Reason Onset Date Comments triage 04/27/2022 Encounter Details Date Type Department Care Team (Late st Contact Info) Description 04/27/2022 Telephone [facility] MEDICINE [address] [place] [address] Ruthie Schwarz FNP [address] [place], [place] [phone] triage Social History Tobacco Use Types Packs/Day [...] Description 04/01/2025 2:30 PM EST Medication Management [facility] [address] [place] [address] Anila Faustin PharmD [address] [facility] [place] [address] 08/18/2025 2:00 PM EDT Office Visit [facility] OPT[facility] [address] [place] [address] Tarka, Clarissa, OD [address] [place] [address] documented as of this encounter Visit Diagnoses Not on filedocumented in this encounter Care Teams Etched Circuit Processor Relationship Specialty Start Date End Date Ruthie Schwarz FNP [address] [place] [address] PCP - General Family Medicine 11/25/21 01/23/24 Yamile Ramsay FNP [address] [facility] [address] PCP - General Family Medicine 01/24/24 02/01/24 Gemini Messer NP [address] [place] [address] PCP - General Family Medicine 02/08/24 Anila Faustin PharmD [address] [place] [address] [place] [address] Pharmacist Internal Medicine 06/05/24 [facility] 07/23/24 documented as of this encounter
--- OUTSIDE RECORDS SUMMARY | 2025-03-18 16:47 | XMS_ITS | Encounter Summary ---
Author Organization [employer] Address [address] [place] [address] 7t [place] [address] Care Team Providers Care Investigator Claims Name Role Phone Ruthie Schwarz CLAY DRY PRESS HELPER Primary Care Provider [phone] Yamile Ramsay CLAY DRY PRESS HELPER Primary Care Provider Gemini Messer AGRICULTURAL EXTENSION EDUCATOR Primary Care Provider [phone] Anila Faustin PharmD Unavailable Encounter Details Date Type Department Care Team (Late st Contact Info) Description 06/22/2022 Orders Only [facility] [address] [place] [address] Payton Knutson LPN Social History Tobacco Use [...] Description 04/01/2025 2:30 PM EST Medication Management [facility] MED[facility] [address] [place], [place] [phone] PuiaRickieAnila, PharmD [address] [place], [place] [phone] 08/18/2025 2:00 PM EDT Office Visit [facility] OPT[facility]RY [address] [place], [place] [phone] Clarissa Witt, OD [address] [facility] [place] [address] documented as of this encounter Visit Diagnoses Not on filedocumented in this encounter Care Teams Investigator Claims Relationship Specialty Start Date End Date Ruthie Schwarz FNP [address] [place] [address] PCP - General Family Medicine 11/25/21 01/23/24 Yamile Ramsay FNP [address] [place] [address] PCP - General Family Medicine 01/24/24 02/01/24 Gemini Messer NP [address] [place] [address] PCP - General Family Medicine 02/08/24 Anila Faustin PharmD [address] [place] [phone] Pharmacist Internal Medicine 06/05/24 [facility] 07/23/24 documented as of this encounter
--- OUTSIDE RECORDS SUMMARY | 2025-03-18 16:47 | XMS_ITS | Encounter Summary ---
Author Organization [employer] Address [address] [facility] 7t [place] [address] Care Team Providers Care Screening Specialist Name Role Phone Gemini Messer NP Primary Care Provider [phone] Anila Faustin PharmD Unavailable [phone] Reason for Visit * Reason Comments Med Refill Encounter Details Date Type Department Care Team (Late st Contact Info) Description 08/07/2024 Refill [facility] MEDICINE [address] [place], [place] [phone] Gemini Messer NP [address] [place] [address] Type 2 diabetes mellitus treated with insulin ([facility]) Social History Tobacco Use Types [...] 04/01/2025 2:30 PM EST Medication Management [facility] MED[facility]INE [address] [place] [address] Anila Faustin, PharmD [address] [place] [address] 08/18/2025 2:00 PM EDT Office Visit [facility] OPTOMETRY [address] [place] [address] Clarissa Witt, OD [address] [place] [address] documented as of this encounter Visit Diagnoses Diagnosis Type 2 diabetes mellitus treated with insulin (HCC) documented in this encounter Additional Health Concerns Assessment Noted Time PHQ-9 Depression Total Score: 11 025 1:12 PM EST documented as of this encounter Care Teams Screening Specialist Relationship Specialty Start Date End Date Gemini Messer NP [address] [place] [address] PCP - General Family Medicine 02/08/24 Anila Faustin, Connie [address] [place] [address] Pharmacist Internal Medicine 06/05/24 [facility] 07/23/24 documented as of this encounter
--- OUTSIDE RECORDS SUMMARY | 2025-03-18 16:47 | XMS_ITS | Encounter Summary ---
Author Organization [employer] Address [address] [place] [address] 7t [place] [address] Care Team Providers Care Physician Practice Consultant Name Role Phone Ruthie Schwarz CITY DISPATCH SUPERVISOR Primary Care Provider Yamile Ramsay CITY DISPATCH SUPERVISOR Primary Care Provider Gemini Messer LEATHER PRODUCTION WORKER Primary Care Provider [phone] Anila Faustin PharmD Unavailable [phone] Encounter Details Date Type Department Care Team (Late st Contact Info) Description 04/15/2022 Orders Only [facility] CHC MED & PEDS [address] [place] [address] Payton Knutson LPN Social History Tobacco Use [...] Description 04/01/2025 2:30 PM EST Medication Management [facility] MEDICINE [address] [place], [place] [phone] PuiaRicikeAnila, PharmD 230 [place], [place] [phone] 08/18/2025 2:00 PM EDT Office Visit [facility] OPTOMETRY [address] [place], [place] [phone] Clarissa Witt, OD 267 [place] [address] documented as of this encounter Visit Diagnoses Not on filedocumented in this encounter Care Teams Physician Practice Consultant Relationship Specialty Start Date End Date Ruthie Schwarz FNP 230 [place] [address] PCP - General Family Medicine 11/25/21 01/23/24 Yamile Ramsay FNP 230 [place] [address] PCP - General Family Medicine 01/24/24 02/01/24 Gemini Messer NP 230 [place] [address] PCP - General Family Medicine 02/08/24 Anila Faustin PharmD [address] [place] [address] Pharmacist Internal Medicine 06/05/24 [facility] Care 07/23/24 documented as of this encounter
--- OUTSIDE RECORDS SUMMARY | 2025-03-18 16:47 | XMS_ITS | Encounter Summary ---
Author Organization [employer] Address [address] [place] [address] 7t [place] [address] Care Team Providers Care Poultry Veterinarian Name Role Phone Ruthie SchwarzP Primary Care Provider [phone] Yamile Ramsay TIPPLE GREASER Primary Care Provider Gemini Messer LACQUER DIPPING MACHINE OPERATOR Primary Care Provider [phone] Puia, Anila PharmD Unavailable Reason for Visit * Reason Comments Med Refill Encounter Details Date Type Department Care Team (Late st Contact Info) Description 09/29/2023 Refill [facility] MEDICINE 230 [place] [address] Ruthie Schwarz FNP [address] [place], [place] [phone] Type 2 diabetes mellitus treated with insulin ([facility]) Social History Tobacco Use Types [...] Description 04/01/2025 2:30 PM EST Medication Management [facility] MEDICINE [address] [place] [address] Puia, Anila, PharmD 230 [place], [place] [phone] 08/18/2025 2:00 PM EDT Office Visit [facility] OPTOMETRY 267 [place] [address] Clarissa Witt, OD 267 [place] [address] documented as of this encounter Visit Diagnoses Diagnosis Type 2 diabetes mellitus treated with insulin (HCC) documented in this encounter Care Teams Poultry Veterinarian Relationship Specialty Start Date End Date Ruthie Schwarz FNP 230 [place] [address] PCP - General Family Medicine 11/25/21 01/23/24 Yamile Ramsay FNP [address] [place] [address] PCP - General Family Medicine 01/24/24 02/01/24 Gemini Messer NP 230 [place] [address] PCP - General Family Medicine 02/08/24 Anila Faustin PharmD [address] [place] [address] Pharmacist Internal Medicine 06/05/24 [facility] Care 07/23/24 documented as of this encounter
--- OUTSIDE RECORDS SUMMARY | 2025-03-18 16:47 | XMS_ITS | Encounter Summary ---
Author Organization [employer] Address [address] [place] [address] 7t [place] [address] Care Team Providers Care Deputy Coroner Name Role Phone Ruthie Schwarz TUGBOAT DISPATCHER Primary Care Provider Yamile Ramsay TUGBOAT DISPATCHER Primary Care Provider Gemini Messer INJECTION OPERATOR Primary Care Provider [phone] Anila Faustin PharmD Unavailable Encounter Details Date Type Department Care Team (Late st Contact Info) Description 08/02/2022 Orders Only [facility] CHC MED & PEDS 505 [place] [address] Payton Knutson LPN Social History Tobacco Use [...] Description 04/01/2025 2:30 PM EST Medication Management [facility] MEDICINE 230 [place], [place] [phone] PuiaRickieAnila, PharmD 230 [place], [place] [phone] 08/18/2025 2:00 PM EDT Office Visit [facility] OPTOMETRY 267 [place], [place] [phone] Clarissa Witt, OD 267 [place] [address] documented as of this encounter Visit Diagnoses Not on filedocumented in this encounter Care Teams Deputy Coroner Relationship Specialty Start Date End Date Ruthie Schwarz FNP 230 [place] [address] PCP - General Family Medicine 11/25/21 01/23/24 Yamile Ramsay FNP 230 [place] [address] PCP - General Family Medicine 01/24/24 02/01/24 Gemini Messer NP 230 [place] [address] PCP - General Family Medicine 02/08/24 Anila Faustin PharmD [address] [place] [address] Pharmacist Internal Medicine 06/05/24 [facility] Care 07/23/24 documented as of this encounter
--- OUTSIDE RECORDS SUMMARY | 2025-03-18 16:47 | XMS_ITS | Encounter Summary ---
Author Organization [employer] Address [address] [place] [address] 7t [place] [address] Care Team Providers Care Bulb Filler Name Role Phone Ruthie Schwarz SALON MANAGER Primary Care Provider Yamile Ramsay SALON MANAGER Primary Care Provider Gemini Messer FILM WASHER Primary Care Provider [phone] Anila Faustin PharmD Unavailable Encounter Details Date Type Department Care Team (Late st Contact Info) Description 03/16/2022 Orders Only [facility] CHC MED & PEDS [address] [place] [address] Payton Knutson LPN Social History Tobacco Use [...] 04/01/2025 2:30 PM EST Medication Management [facility] MEDICINE 230 [place], [place] [phone] PuiaRickieAnila, PharmD 230 [place], [place] [phone] 08/18/2025 2:00 PM EDT Office Visit [facility] OPTOMETRY 267 [place], [place] [phone] Clarissa Witt, OD 267 [place] [address] documented as of this encounter Visit Diagnoses Not on filedocumented in this encounter Care Teams Bulb Filler Relationship Specialty Start Date End Date Ruthie Schwarz FNP 230 [place] [address] PCP - General Family Medicine 11/25/21 01/23/24 Yamile Ramsay FNP 230 [place] [address] PCP - General Family Medicine 01/24/24 02/01/24 Gemini Messer NP 230 [place] [address] PCP - General Family Medicine 02/08/24 Anila Faustin PharmD [address] [place] [address] Pharmacist Internal Medicine 06/05/24 [facility] Care 07/23/24 documented as of this encounter
--- OUTSIDE RECORDS SUMMARY | 2025-03-18 16:47 | XMS_ITS | Encounter Summary ---
Author Organization [employer] Address [address] [place] [address] 7t [place] [address] Care Team Providers Care Revenue Audit Clerk Name Role Phone Heathgris Gemini NOLASCO Primary Care Provider [phone] Anila Faustin PharmD Unavailable [phone] Reason for Referral * Consultation (Routine) - Pending Review Specialty Diagnoses / Procedures Referred By Contfelton t Referred To Contact Pharmacy Diagnoses Hyperlipidemia associated with type 2 diabetes mellitus (HCC) Myrtle Padgett MD 230 [place] [address] Phone: tel: fax: Referral ID Status Reason Start Date Expiration Date Visits Requested Visits Authorized [id number] Pending Review Consult and Treat 05/06/2024 05/06/2025 12 12 Encounter Details Date Type Department Care Team (Late st Contact Info) Description 05/06/2024 Orders Only [facility] MEDICINE 230 [place], [place] [phone] Myrtle Padgett MD [address] [place], [place] [phone] Hyperlipidemia associated with type 2 diabetes mellitus [...] Description 04/01/2025 2:30 PM EST Medication Management [facility] MEDICINE 230 [place] [address] Anila Faustin, PharmD [address] [place] [address] 08/18/2025 2:00 PM EDT Office Visit [facility] OPTOMETRY 267 [place] [address] Clarissa Witt, OD [address] [place] [address] Scheduled Referrals Name Type Priority Associated Diagnoses [...] documented as of this encounter Care Teams Revenue Audit Clerk Relationship Specialty Start Date End Date Gemini Messer NP 230 [place] [address] PCP - General Family Medicine 02/08/24 Anila Faustin PharmD 230 [place] [address] Pharmacist Internal Medicine 06/05/24 [facility] 07/23/24 documented as of this encounter
--- OUTSIDE RECORDS SUMMARY | 2025-03-18 16:47 | XMS_ITS | Encounter Summary ---
Author Organization [employer] Address [address] [place] [address] 7t [place] [address] Care Team Providers Care Experimental Welder Name Role Phone Ruthie Schwarz CHIEF EXECUTIVE OR MANAGING DIRECTOR Primary Care Provider Yamile Ramsay CHIEF EXECUTIVE OR MANAGING DIRECTOR Primary Care Provider Gemini Messer KNOT TIER Primary Care Provider [phone] PuiaRickieAnila PharmD Unavailable Reason for Visit * Reason Comments Med Refill Encounter Details Date Type Department Care Team (Late st Contact Info) Description 01/18/2024 Refill [facility] CHC MED & PEDS 505 [place], [place] [phone] Ruthie Schwarz FNP [address] [place], [place] [phone] Type 2 diabetes mellitus treated with insulin ([facility]) Social History Tobacco Use Types Packs/Day Years [...] 2:30 PM EST Medication Management [facility] MEDICINE [address] [place], [place] [phone] Puia, Anila, PharmD 230 [place], [place] [phone] 08/18/2025 2:00 PM EDT Office Visit [facility] OPTOMETRY 267 [place] [address] Clarissa Witt, OD 267 [place] [address] documented as of this encounter Visit Diagnoses Diagnosis Type 2 diabetes mellitus treated with insulin (HCC) documented in this encounter Care Teams Experimental Welder Relationship Specialty Start Date End Date Ruthie Schwarz FNP 230 [place] [address] PCP - General Family Medicine 11/25/21 01/23/24 Yamile Ramsay FNP 230 [place] [address] PCP - General Family Medicine 01/24/24 02/01/24 Gemini Messer NP 230 [place] [address] PCP - General Family Medicine 02/08/24 Anila Faustin PharmD 230 [place] [address] Pharmacist Internal Medicine 06/05/24 [facility] 07/23/24 documented as of this encounter
--- OUTSIDE RECORDS SUMMARY | 2025-03-18 16:47 | XMS_ITS | Data Portability ---
Author Organization [employer] [facility] [place] [employer] [facility] Address [address] [place] [address] Care Team Providers Care Dumper Bailer Operator Name Role Phone HIM CCA OTHER [...] Orders doxycycline hyclate 100 mg capsule 2023 [facility], [address] [place] [address], [id number], 10:35:27 doxycycline hyclate 100 mg tablet 2023 [facility], [address] [place] [address], [id number], 17:45:25 Patient TargetsNo targets recorded. Patient InstructionsNo instructions recorded. Reason for Referral None Reported. Medical Equipment None Reported. Allergies Allergen ID Allergen Name Allergen Category Reaction Reaction Severity Criticality Documentation Date Start Date Code Code System Note Provider Name and Address Organization Details Recorded Time 5761 Cialis medicatio n Not available Not available Not available 11/02/2023 33373 3 RxNorm Mabel Goddard MD [address] [place] [address],[address], [place], [phone], [employer] 13:39:30 Medications Name Sig Start Date Stop [...] t Available Vitals Date Recorded Oxygen saturation Respiratory rate Body temperature Body weight Body height Heart rate Systolic And Diastolic Provider Name and Address Organization Details Last Updated DateTime 4 99 % 16 /min 97.1 [degF] 23301.3 2 g 182.88 cm 84 /min 122/83 mm[Hg] Not Available [employer] 4 13:35:39 Date Recorded Body weight Body height Body temperature Oxygen saturation Respiratory rate Heart rate Systolic And Diastolic Provider Name and Address Organization Details Last Updated DateTime 4 21288.6 g 172.72 cm 98.4 [degF] 98 % 14 /min 80 /min 138/72 mm[Hg] Not Available [employer] 17:34:38 Social History None recorded. Functional Status None recorded. Mental Status None recorded. Family History Nothing Reported. Medical History No medical history recorded. Past Encounters Encounter ID Performer Location Encounter Start Date Encounter Closed Date Diagnosis/Indication Diagnosis SNOMED-CT Code Diagnosis ICD10 Code Diagnosis IMO Codes Diagnosis Note [id number] Mabel Goddard MD [facility] - [address] [phone] 11/02/2023 13:35:26 11/05/2023 21:50:53 Diabetic foot ulcer 393303038 E13.621 [id number] Juan Antonio Sun MD [facility] - [address] [address] 01/23/2024 17:34:23 01/24/2024 00:02:04 Cellulitis of left lower limb 8501049743 [id number] L03.116 Health Concerns Section Related Observation LastModified by Organization Detai ls LastModified Time None Recorded Concern Status LastModified by Organization Details LastModified Time None Recorded Advance Directives Directive None Recorded Payers Insurance Date Sequence Insurance Name Policy Number Policy Dubose Covered Member ID Dubose Member ID Guarantor Name 02/06/2024 1 [facility] - DOS ON OR AFTER 2022 - DUAL ELIGIBLE - [employer] OPTIONS AND ONE CARE (MEDICARE REPLACEMENT/ADV ANTAGE - HMO) Mckinley Berry [id number] Mckinley Berry Notes Date Note Type Note Provider Name and Address Organization Details Recorded Time 11/02/2023 text/html HPI: blood sugar in 300s, open wound near toes on right foot Member is followed by ID due to h/o sepsis .................... .................... .................... .................... .................... .................... .................... . CRC Nurse Triage Notes (Amy Johnston): Chief Complaints: Wound Care PMH: Diabetes, Hypertension Other Allergies: tadalafil Comments: Restaurant Kitchen And Service Manager verified the member's name//address and phone number. [...] .................... .................... .................... .................... .................... .................... . Brass Buffer Note From Cheng Sapp: Smartcare visit for [...] Affected toe's examined with images sent to [facility]. Consulted with [facility] Dr. Goddard who said she would put in request to PCP to have patient seen sooner to address issues and get possible xray of the foot. Reviewed red flags for ED. Patient education provided. .................... .................... .................... .................... .................... .................... .................... . Disposition: Yvonne Goddard MD [address] [facility],[address], [place], [address], [employer] 11/02/2023 15:00:39 01/23/2024 text/html HPI: anxiety, chronic [...] CRC RN DID NOT NEED FURTHER INFO Brass Buffer Organization Information for [employer] Legal Name: [facility] Transportation Address: [address] [place] [address], [place] [address], Electrotyper: Kehinde JACOBSON No.: [id number] Brass Buffer POC Test Results from Dallin Lawrence - [facility] Blood Glucose Measurement (17:15:08) Blood Glucose: 328 mg/dL .................... .................... .................... .................... .................... .................... .................... . Brass Buffer Note From Dallin Lawrence: Patient conscious and [...] extra heat, discolored discharge, or current bleeding noted.[facility] orders doxycycline 200 mg PO now and will call in more to patient s local pharmacy. Supportive care, including cleaning and use of triple antibiotic ointment discussed. Red flags, and patient education discussed.Note: [id number]. supervisor stage carpentry in test section of this report incorrect. Patient s BGL equals 228 MG/DL [facility] Medication Orders: doxycycline hyclate 100 mg tablet: Administered .................... .................... .................... .................... .................... .................... .................... . Disposition: Fulfilled Juan Antonio Sun MD [address] [place] [address],[address], [place], [address], JOSHUA - JAH CANNON 01/23/2024 20:59:30
--- OUTSIDE RECORDS SUMMARY | 2025-03-18 16:47 | XMS_ITS | Encounter Summary ---
Author Organization [employer] Address [address] [place] [address] 7t [place] [address] Care Team Providers Care Area Director Name Role Phone Karishma Ruthie SSRS DEVELOPER Primary Care Provider Yamile Ramsay SSRS DEVELOPER Primary Care Provider [phone] Gemini Messer SPECIAL FORCES WARRANT OFFICER Primary Care Provider [phone] Puia Anila PharmD Unavailable [phone] Encounter Details Date Type Department Care Team (Late st Contact Info) Description 01/21/2024 Orders Only [facility] CHC MED & PEDS 505 [place], [place] [phone] Ruthie Schwarz SSRS DEVELOPER [address] [place], [place] [phone] Social History Tobacco Use Types Packs/Day Years [...] Description 04/01/2025 2:30 PM EST Medication Management [facility] MEDICINE 230 [place] [address] Puia, Anila, PharmD 230 [place], [place] [phone] 08/18/2025 2:00 PM EDT Office Visit C OPTOMETRY [address] [place] [address] Clarissa Witt, OD 267 [place] [address] documented as of this encounter Visit Diagnoses Not on filedocumented in this encounter Care Teams Area Director Relationship Specialty Start Date End Date Ruthie Schwarz FNP [address] [place] [address] PCP - General Family Medicine 11/25/21 01/23/24 Yamile Ramsay FNP [address] [place] [address] PCP - General Family Medicine 01/24/24 02/01/24 Gemini Messer NP [address] [place] [address] PCP - General Family Medicine 02/08/24 Anila Faustin PharmD [address] [place] [address] Pharmacist Internal Medicine 06/05/24 [facility] 07/23/24 documented as of this encounter
--- OUTSIDE RECORDS SUMMARY | 2025-03-18 16:47 | XMS_ITS | Encounter Summary ---
Author Organization [employer] Address [address] [facility] 7t [place] [address] Care Team Providers Care Piecer Name Role Phone Heathgris Gemini NOLASCO Primary Care Provider [phone] Anila Faustin PharmD Unavailable [phone] Reason for Visit * Reason Comments Med Refill Encounter Details Date Type Department Care Team ([facility] st Contact Info) Description 07/30/2024 Refill [facility] MEDICINE 230 [place] [address] Ruthie Schwarz FNP 505 [place] [address] Type 2 diabetes mellitus with hyperglycemia, with long-term current use of insulin ([facility]) Social History Tobacco Use Types Packs/Day [...] Description 04/01/2025 2:30 PM EST Medication Management [facility] MEDICINE [address] [place] [address] Anila Faustin, PharmD 230 [place] [address] 08/18/2025 2:00 PM EDT Office Visit [facility] OPTOMETRY 267 [place] [address] Clarissa Witt, OD 267 [place] [address] documented as of this encounter Visit Diagnoses Diagnosis Type 2 diabetes mellitus with hyperglycemia, with long-term current use of insulin (HCC) documented in this encounter Additional Health Concerns Assessment Noted Time PHQ-9 Depression Total Score: 11 025 1:12 PM EST documented as of this encounter Care Teams Piecer Relationship Specialty Start Date End Date Gemini Messer NP 230 [place] [address] PCP - General Family Medicine 02/08/24 Anila Faustin PharmD [address] [place] [address] Pharmacist Internal Medicine 06/05/24 [facility] 07/23/24 documented as of this encounter
--- OUTSIDE RECORDS SUMMARY | 2025-03-18 16:47 | XMS_ITS | Encounter Summary ---
Author Organization [employer] Address [address] [facility] 7t [place] [address] Care Team Providers Care Museum Specialist Name Role Phone Ruthie SchwarzP Primary Care Provider Yamile Ramsay SHELL CORE AND MOLDING SUPERVISOR Primary Care Provider [phone] Gemini Messer CLUSTER BORE OPERATOR Primary Care Provider [phone] PuAnila ying PharmD Unavailable Reason for Visit * Reason Onset Date Comments Requested Call Back 10/20/2022 Encounter Details Date Type Department Care Team (Late st Contact Info) Description 10/20/2022 Telephone [facility] MEDICINE 230 [place] [address] Ruthie Schwarz FNP [address] [place], [place] [phone] Requested Call Back Social History Tobacco Use [...] AM EDT Pt is still admitted at [facility] for multifocal pneumonia. * Telephone Encounter - Herminia Garcia 10/20/2022 11:37 AM EDT Tc from [facility] requesting a call back, in regards to PCP signing VNA orders. Please call [phone] documented in this encounter Plan of Treatment Upcoming Encounters Date Type Department Care Team (Late st Contact Info) Description 04/01/2025 2:30 PM EST Medication Management [facility] MEDICINE [address] [place] [address] Anila Faustin PharmD 230 [place] [address] 08/18/2025 2:00 PM EDT Office Visit [facility] OPTOMETRY 267 [place] [address] Clarissa Witt, OD 267 [place] [address] documented as of this encounter Visit Diagnoses Not on filedocumented in this encounter Care Teams Museum Specialist Relationship Specialty Start Date End Date Ruthie Schwarz FNP [address] [place] [address] PCP - General Family Medicine 11/25/21 01/23/24 Yamile Ramsay FNP [address] [place] [address] PCP - General Family Medicine 01/24/24 02/01/24 Gemini Messer NP [address] [place] [address] PCP - General Family Medicine 02/08/24 Anila Faustin, PharmD [address] [place] [address] Pharmacist Internal Medicine 06/05/24 [facility] 07/23/24 documented as of this encounter
--- OUTSIDE RECORDS SUMMARY | 2025-03-18 16:47 | XMS_ITS | Encounter Summary ---
Author Organization [employer] Address [address] [place] [address] 7t [place] [address] Care Team Providers Care Dry Starch Operator Name Role Phone Ruthie Schwarz SPONGE HOOKER Primary Care Provider Yamile Ramsay SPONGE HOOKER Primary Care Provider Gemini Messer CHIEF OPERATING ENGINEER Primary Care Provider [phone] Anila Faustin PharmD Unavailable [phone] Encounter Details Date Type Department Care Team (Late st Contact Info) Description 03/31/2022 Orders Only [facility] MEDICINE 230 [place] [address] Jill Felix, BONI Social History Tobacco Use [...] Description 04/01/2025 2:30 PM EST Medication Management [facility] MEDICINE 230 [place] [address] PuiaElisa, PharmD 230 [place] [address] 08/18/2025 2:00 PM EDT Office Visit [facility] OPTOMETRY [address] [place] [address] Clarissa Witt, OD 267 [place] [address] documented as of this encounter Visit Diagnoses Not on filedocumented in this encounter Care Teams Dry Starch Operator Relationship Specialty Start Date End Date Ruthie Schwarz FNP [address] [place] [address] PCP - General Family Medicine 11/25/21 01/23/24 Yamile Ramsay FNP 230 [place] [address] PCP - General Family Medicine 01/24/24 02/01/24 Gemini Messer NP [address] [place] [address] PCP - General Family Medicine 02/08/24 Anila Faustin, Connie [address] [place] [address] Pharmacist Internal Medicine 06/05/24 [facility] 07/23/24 documented as of this encounter
--- OUTSIDE RECORDS SUMMARY | 2025-03-18 16:47 | XMS_ITS | Encounter Summary ---
Author Organization [employer] Address [address] [facility] 7t [place] [address] Care Team Providers Care Joint Setter Name Role Phone Gemini Messer NP Primary Care Provider [phone] Anila Faustin PharmD Unavailable [phone] Reason for Visit * Reason Comments Med Refill Encounter Details Date Type Department Care Team ([facility] st Contact Info) Description 07/11/2024 Refill [facility] [address] [place] [address] Gemini Messer NP 230 [place] [address] Pain Social History Tobacco Use Types Packs/Day [...] Description 04/01/2025 2:30 PM EST Medication Management [facility] 230 [place] [address] Anila Faustin PharmD 230 [place] [address] 08/18/2025 2:00 PM EDT Office Visit [facility] [address] [place] [address] Clarissa Witt, OD [address] [place] [address] documented as of this encounter Visit Diagnoses Diagnosis Pain Generalized pain documented in this encounter Additional Health Concerns Assessment Noted Time PHQ-9 Depression Total Score: 11 025 1:12 PM EST documented as of this encounter Care Teams Joint Setter Relationship Specialty Start Date End Date Gemini Messer NP 230 [place] [address] PCP - General Family Medicine 02/08/24 PuiaAnila PharmD 230 [place] [address] Pharmacist Internal Medicine 06/05/24 [facility] 07/23/24 documented as of this encounter
--- OUTSIDE RECORDS SUMMARY | 2025-03-18 16:47 | XMS_ITS | Encounter Summary ---
Author Organization [employer] Address [address] [place] [address] 7t [place] [address] Care Team Providers Care Identification Clerk Name Role Phone Ruthie Schwarz NURSE Primary Care Provider Yamile Ramsay NURSE Primary Care Provider [phone] Gemini Messer TAX COMMISSIONER Primary Care Provider [phone] Anila Faustin PharmD Unavailable [phone] Encounter Details Date Type Department Care Team (Late st Contact Info) Description 05/25/2022 Orders Only [facility] MED & PEDS [address] [place] [address] Payton Knutson LPN Social History Tobacco Use [...] [facility] MEDICINE [address] [place], [place] [phone] PuiaRickieAnila, PharmD 230 [place], [place] [phone] 08/18/2025 2:00 PM EDT Office Visit [facility] OPTOMETRY [address] [place], [place] [phone] Clarissa Witt, OD [address] [facility] [place] [address] documented as of this encounter Visit Diagnoses Not on filedocumented in this encounter Care Teams Identification Clerk Relationship Specialty Start Date End Date Ruthie Schwarz FNP 230 [place] [address] PCP - General Family Medicine 11/25/21 01/23/24 Yamile Ramsay FNP [address] [place] [address] PCP - General Family Medicine 01/24/24 02/01/24 Gemini Messer NP [address] [place] [address] PCP - General Family Medicine 02/08/24 Anila Faustin PharmD [address] [place] [address] Pharmacist Internal Medicine 06/05/24 [facility] 07/23/24 documented as of this encounter
--- OUTSIDE RECORDS SUMMARY | 2025-03-18 16:48 | XMS_ITS | Encounter Summary ---
Author Organization [employer] Address [address] [place] [address] 7t [place] [address] Care Team Providers Care Skin Care Consultant Name Role Phone Ruthie Schwarz SUPERVISOR SULFURIC ACID PLANT Primary Care Provider Yamile Ramsay SUPERVISOR SULFURIC ACID PLANT Primary Care Provider [phone] Gemini Messer WASTE REDUCTION COORDINATOR Primary Care Provider [phone] Puia, Anila PharmD Unavailable Reason for Visit * Reason Comments Med Refill Encounter Details Date Type Department Care Team (Late st Contact Info) Description 03/15/[address] [facility] [address] [place], [place] [phone] Suzy Escobar MD 230 [place], [place] [phone] Neuropathic pain; Type 2 diabetes mellitus with hyperglycemia, unspecified whether skilled nursing insulin use ([facility]); Primary hypertension Social History Tobacco Use Types [...] 04/01/2025 2:30 PM EST Medication Management 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) Primary hypertension Unspecified essential hypertension documented in this encounter Care Teams Skin Care Consultant Relationship Specialty Start Date End Date Ruthie Schwarz FNP [address] [place] [address] PCP - General Family Medicine 11/25/21 01/23/24 Yamile Ramsay FNP [address] [place] [address] PCP - General Family Medicine 01/24/24 02/01/24 Gemini Messer NP [address] [place] [address] PCP - General Family Medicine 02/08/24 Anila Faustin PharmD [address] [place] [address] Pharmacist Internal Medicine 06/05/24 [place] 07/23/24 documented as of this encounter
--- OUTSIDE RECORDS SUMMARY | 2025-03-18 16:48 | XMS_ITS | Encounter Summary ---
Author Organization [employer] Address [address] [facility] 7t [place] [address] Care Team Providers Care Police Justice Name Role Phone Gemini Messer NP Primary Care Provider [phone] Anila Faustin PharmD Unavailable [phone] Encounter Details Date Type Department Care Team ([facility] st Contact Info) Description 02/14/2025 Results Follow-Up [facility] 230 [place] [address] Gemini Messer NP 230 [place] [address] Glucose, Whole Blood, CBC auto differential, Lactic [...] EST Medication Management [facility] 230 [place] [address] Anila Faustin PharmD 230 [place] [address] 08/18/2025 2:00 PM EDT Office Visit [facility] OPTOMETRY [address] [place] [address] Tarka, Clarissa, OD [address] [place] [address] documented as of this encounter Goals Goal Patient Goal Type Associated Problems Recent Progress Patient-Stated? Author Help patients manage their type 2 diabetes Care Plan Help patients manage their type 2 diabetes No Anila Faustin, PharmD Weekly blood pressure task Care Plan Weekly blood pressure task No Anila Faustin, PharmD Help patients manage their type 2 diabetes Care Plan Help patients manage their type 2 diabetes No Anila Faustin, PharmD Patient has chronic kidney disease Care [...] documented as of this encounter Care Teams Police Justice Relationship Specialty Start Date End Date Gemini Messer NP 230 [place] [address] PCP - General Family Medicine 02/08/24 Anila Faustin PharmD 230 [place] [address] Pharmacist Internal Medicine 06/05/24 [facility] 07/23/24 documented as of this encounter
--- OUTSIDE RECORDS SUMMARY | 2025-03-18 16:48 | XMS_ITS | Encounter Summary ---
Author Organization [employer] Address [address] [facility] 7t [place] [address] Care Team Providers Care Brick Extruder Operator Name Role Phone Gemini Messer NP Primary Care Provider [phone] Anila Faustin PharmD Unavailable [phone] Reason for Visit * Reason Onset Date Comments pre op 02/20/2025 Encounter Details Date Type Department Care Team (Late st Contact Info) Description 02/20/2025 Telephone [facility] MEDICINE [address] [place], [place] [phone] Gemini Messer NP [address] [place] [address] pre op Social History Tobacco Use Types Packs/Day Years [...] encounter Miscellaneous Notes * Telephone Encounter - Clement Solomon - 02/21/2025 8:38 AM EST Outgoing call to schedule pre-op appointment pt was unaware of his upcoming surgery at [facility] on 03-07-2025 pt was advice to contact [facility] and get more details if he is ok with surgery to contact [facility] so we are able to book his pre-op appointment pt agreed to plan. * Telephone Encounter - Elliot Giron - 02/20/2025 3:16 PM EST Date of Surgery: 03/07 Surgical procedure being done: right toe amputation Type of anesthesia: general anesthesia Lab needed: Yes EKG: Yes Surgeon's name: Dr Billingsley Facility name: [facility] podiatist Surgeon's office number: [phone] Surgeon's office fax number: [phone] Contact name (person you spoke with): Mary Anne Last office note from surgeon requested: No Send Message to Junior Sanchez documented in this encounter Plan of Treatment Upcoming Encounters Date Type Department Care Team (Late st Contact Info) Description 04/01/2025 2:30 PM EST Medication Management [facility] MEDICINE [address] [place] [address] Puia, Anila, PharmD [address] [place] [address] 08/18/2025 2:00 PM EDT Office Visit [facility] OPTOMETRY [address] [place] [address] Tarka, Clarissa, OD [address] [place] [address] documented as of this encounter Goals Goal [...] has chronic kidney disease No Gemini Messer WELDER FITTER HELPER Patient has chronic kidney disease Care Plan Patient has chronic kidney disease No Gemini Messer WELDER FITTER HELPER Patient has chronic kidney disease Care Plan Patient has chronic kidney disease No Gemini Mseser NP Patient has diabetic neuropathy Care Plan Patient has diabetic neuropathy No Gemnii Messer NP Patient has diabetic neuropathy Care [...] Patient has diabetic neuropathy No Elliot Anthony documented as of this encounter Visit Diagnoses [...] neuropathy 02/20/2025 Patient has diabetic neuropathy 02/20/2025 Assessment Noted Time PHQ-9 Depression Total Score: 11 04/05/ 025 1:12 PM EST documented as of this encounter Care Teams Brick Extruder Operator Relationship Specialty Start Date End Date Gemini Messer NP [address] [place] [address] PCP - General Family Medicine 02/08/24 Anila Faustin PharmD [address] [place] [address] Pharmacist Internal Medicine 06/05/24 [facility] 07/23/24 documented as of this encounter
--- OUTSIDE RECORDS SUMMARY | 2025-03-18 16:48 | XMS_ITS | Encounter Summary ---
Author Organization [employer] Address [address] [place] [address] 7t [place] [address] Care Team Providers Care Rehabilitation Engineer Name Role Phone Ruthie Schwarz TIPPLE ENGINEER Primary Care Provider [phone] Yamile Ramsay TIPPLE ENGINEER Primary Care Provider Gemini Messer DOCK GUARD Primary Care Provider [phone] PuAnila ying PharmD Unavailable [phone] Reason for Visit * Reason Onset Date Comments Nurse Triage 03/15/2023 Encounter Details Date Type Department Care Team ([facility] st Contact Info) Description 03/15/2023 Telephone [facility] MED & PEDS [address] [place] [address] DeepakRuthie alcantar FNP [address] [place] [address] Nurse Triage Social History Tobacco Use Types [...] chart. Pt is advised to come to [facility] and Pt will come in the morning. Hours open 830am to 400pm tomorrow and Pt agrees with disposition. Pt is not suicidal and doesn't want to hurt anyone. Pt is not in distress at time of call. Advised that BH can be called in to [facility] for visit to speak with Pt [...] 2:30 PM EST Medication Management [facility] MEDICINE [address] [place] [address] Anila Faustin PharmD [address] [place] [address] 08/18/2025 2:00 PM EDT Office Visit [facility] OPTOMETRY [address] [place] [address] Clarissa Witt OD [address] [place] [address] documented as of this encounter Visit Diagnoses Not on filedocumented in this encounter Care Teams Rehabilitation Engineer Relationship Specialty Start Date End Date Ruthie Schwarz FNP [address] [place] [address] PCP - General Family Medicine 11/25/21 01/23/24 Yamile Ramsay FNP [address] [place] [address] PCP - General Family Medicine 01/24/24 02/01/24 Gemini Messer NP [address] [place] [address] PCP - General Family Medicine 02/08/24 Anila Faustin PharmD [address] [place] [address] Pharmacist Internal Medicine 06/05/24 [facility] Care 07/23/24 documented as of this encounter
--- OUTSIDE RECORDS SUMMARY | 2025-03-18 16:48 | XMS_ITS | Encounter Summary ---
Author Organization [employer] Address [address] [facility] 7t [place] [address] Care Team Providers Care Heavy Duty Diesel Mechanic Name Role Phone Ruthie SchwarzP Primary Care Provider Yamile Ramsay GAMBLING CASHIER Primary Care Provider Gemini Messer DIP UNIT OPERATOR Primary Care Provider [phone] Anila Faustin PharmD Unavailable [phone] Reason for Visit * Reason Onset Date Comments X-ray request 09/04/2023 Encounter Details Date Type Department Care Team (Late st Contact Info) Description 09/04/2023 Telephone [facility] MEDICINE [address] [place] [address] Ruthie Schwarz FNP [address] [place], [place] [phone] X-ray request Social History Tobacco Use Types [...] - 09/04/2023 10:57 AM EDT Tc to [facility] regarding X-ray order and to pass [...] EDT Please advise, tc to Saima at [facility] Radiology requesting a chest X-ray due to PICC line verification as the line came out about an inch. Fax number is [phone]. Stated to Saima would send message to provider to get the order in and fax it. Saima verbalized understanding and agreement with plan. * Telephone Encounter - Mark Castro - 09/04/2023 9:17 AM EDT Tc from Jen at [facility] Radiology calling to request a chest x-ray for a PICC Line Verification states it is urgent please call Jen at [phone] documented in this encounter Plan of Treatment Upcoming Encounters Date Type Department Care Team (Late st Contact Info) Description 04/01/2025 2:30 PM EST Medication Management [facility] MEDICINE [address] [place] [address] Anila Faustin, PharmD 230 [place] [address] 08/18/2025 2:00 PM EDT Office Visit [facility] OPTOMETRY [address] [place] [address] Clarissa Witt, OD [address] [place] [address] documented as of this encounter Visit Diagnoses Not on filedocumented in this encounter Care Teams Heavy Duty Diesel Mechanic Relationship Specialty Start Date End Date Ruthie Schwarz FNP [address] [place] [address] PCP - General Family Medicine 11/25/21 01/23/24 Yamile Ramsay FNP 230 [place] [address] PCP - General Family Medicine 01/24/24 02/01/24 Gemini Messer NP 230 [place] [address] PCP - General Family Medicine 02/08/24 Anila Faustin PharmD 230 [place] [address] Pharmacist Internal Medicine 06/05/24 [facility] Home Care 07/23/24 documented as of this encounter
--- OUTSIDE RECORDS SUMMARY | 2025-03-18 16:48 | XMS_ITS | Encounter Summary ---
Author Organization [employer] Address [address] [facility] 7t [place] [address] Care Team Providers Care Master Lay Out Specialist Name Role Phone Gemini Messer NP Primary Care Provider [phone] Anila Faustin PharmD Unavailable [phone] Encounter Details Date Type Department Care Team ([facility] st Contact Info) Description 02/14/2025 Results Follow-Up [facility] 230 [place] [address] Gemini Messer NP [address] [place] [address] POCT Hgb A1c Social History Tobacco Use [...] Medication Management [facility] MEDICINE 230 [place] [address] Puia, Anila, PharmD 230 [place] [address] 08/18/2025 2:00 PM EDT Office Visit [facility] OPTOMETRY [address] [place] [address] TarkaClarissa, OD [address] [place] [address] documented as of this encounter Goals Goal [...] documented as of this encounter Care Teams Master Lay Out Specialist Relationship Specialty Start Date End Date Gemini Messer NP 230 [place] [address] PCP - General Family Medicine 02/08/24 Anila Faustin PharmD [address] [place] [address] Pharmacist Internal Medicine 06/05/24 [facility] 07/23/24 documented as of this encounter
--- OUTSIDE RECORDS SUMMARY | 2025-03-18 16:48 | XMS_ITS | Clinical Summary ---
Author Organization [employer] Address [address] [place] [address] [address] [place] [address] Care Team Providers Care Segment Assembler Name Role Phone Gui Gemini NOLASCO Primary Care Provider [phone] Anila Faustin PharmD Unavailable [phone] Allergies Active Allergy Reactions Criticality Noted [...] mouth in the morning. 01/19/20 24 Active Continuous Glucose Fashion Styling Intern (FreeStyle Lenny 3 [place]) deviceIndicatio ns:Type 2 diabetes mellitus with hyperglycemia, with long-term current use of insulin (HCC) 1 each Once per day. 1 each 05/06/19 25 Active Continuous Glucose Sensor (FreeStyle Lenny 3 Plus Sensor) miscIndications :Type 2 diabetes mellitus with hyperglycemia, with long-term current use of insulin (HCC) 1 each Once per day. Apply 1 sensor every 15 days 2 each 11 5 3:05 PM EST 05/06/19 25 Active metFORMIN (Glucophage) 500 MG tablet TAKE 1 TABLET BY MOUTH TWICE DAILY IN THE MORNING AND IN THE EVENING 180 tablet 3 06/15/19 25 Active Aspirin EC Adult Low Dose 81 MG EC tabletIndicatio ns:Other hyperlipidemia, Type 2 diabetes mellitus without complication, with long-term current use of insulin ([facility]) TAKE 1 TABLET BY MOUTH EVERYDAY AT [...] with evening meal. 120 capsule 11 5 3:06 PM EST 06/28/19 25 2025 Active Acetaminophen [...] hyperglycemia, with long-term current use of insulin ([facility]) TEST BG four times daily DIRECTED 100 each 11 5 3:25 PM EST 07/31/19 25 2025 Active TRUEplus Lancets 33G miscIndications :Type 2 diabetes mellitus with hyperglycemia, with long-term current use of insulin ([facility]) TEST BLOOD SUGAR FOUR TIMES DAILY 100 each 11 07/31/19 25 Active polyvinyl alcohol (Liquifilm Tears) 1.4 % ophthalmic solutionIndicat ions:Dry eyes, bilateral Administer 1 drop into both eyes if needed for dry eyes. 15 mL 6 5 3:25 PM EST 08/17/19 25 Active glucose 4 g chewable tablet Chew 4 tablets (16 g) if needed for low blood sugar. (BG < 70 mg/dL). Recheck BG after 15 mins and repeat treatment if needed 2 tablet 5 05/30/20 25 2025 Active insulin glargine (Lantus SoloStar) 100 UNIT/ML penIndications: Type 2 diabetes mellitus treated with insulin (HCC) Inject 18 Units under the skin in the morning. 15 mL 5 5 2:02 PM EST 08/31/19 25 Active insulin pen needle (TechLite Plus Pen [place]) 32G x 4 mm miscIndications :Diabetic nephropathy associated with type 2 diabetes mellitus (HCC) Use once daily for insulin injection, as instructed 100 each 3 5 2:02 PM EST 08/31/19 25 Active senna-docusate sodium (Senokot-S) 8.6-50 MG tablet Take 1 tablet by mouth at bedtime. 30 tablet 11 5 3:06 PM EST 08/31/19 25 2025 Active ketorolac (Acular) 0.5 % ophthalmic solution 09/13/19 25 Active simvastatin (Zocor) 40 MG tablet TAKE 1 TABLET BY MOUTH EVERY EVENING 90 tablet 1 10/08/19 25 Active Alcohol Swabs (Alcohol Prep) 70 % padsIndications :Type 2 diabetes mellitus with hyperglycemia, unspecified whether biomass 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 insulin use (HCC) USE DIRECTED TEST BLOOD SUGAR & INJECTING INSULIN 200 each 11 5 3:05 PM EST 11/13/19 25 Active naloxone (Narcan) [...] SHORTNESS OF BREATH 18 g 3 5 3:06 PM EST 12/25/19 25 Active omeprazole (PriLOSEC) [...] 2 diabetes mellitus with hyperglycemia, unspecified whether biomass 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 insulin use (HCC) TAKE 1 TABLET BY MOUTH TWICE DAILY IN THE MORNING AND IN THE EVENING BEFORE MEALS 180 tablet 1 5 2:02 PM EST 02/06/20 25 Active gabapentin (Neurontin) 800 MG tabletIndicatio ns:Type 2 diabetes mellitus treated with insulin (HCC) TAKE 1 TABLET BY MOUTH THREE TIMES DAILY IN THE MORNING, EVENING, AND BEDTIME 90 tablet 1 5 3:06 PM EST 02/06/20 25 Active Tirzepatide (Mounjaro) 10 MG/0.5ML solution auto-injectorIn dications:Type 2 diabetes mellitus with hyperglycemia, with long-term current use of insulin (HCC) Inject 10 mg under the skin 1 (one) time per week. 2 mL 11 5 3:06 PM EST 02/14/20 25 Active Wixela Inhub 500-50 MCG/ACT aerosol powder INHALE 1 PUFF BY MOUTH TWICE DAILY, RINSE MOUTH AFTER USING. 60 each 3 03/03/20 25 Active amitriptyline (Elavil) 50 MG tabletIndicatio ns:Depressive disorder TAKE 1 TABLET BY MOUTH AT BEDTIME 90 tablet 3 5 3:05 PM EST 03/03/20 25 Active amitriptyline (Elavil) 50 MG tabletIndicatio ns:Depressive disorder TAKE 1 TABLET BY MOUTH AT BEDTIME 90 tablet 3 03/19/20 24 2024 Discontinued(R eorder (will not trigger notification to Pharmacy)) Wixela Inhub 500-50 MCG/ACT aerosol powder INHALE 1 PUFF BY MOUTH TWICE DAILY, RINSE MOUTH AFTER USING. 60 each 3 5 2:02 PM EST 10/17/19 25 2024 Discontinued Active Problems Problem Noted Date Diagnosed Date [...] result -cologuard order placed Osteomyelitis of foot ([facility]) 06/03/2024 Assessment & Plan (07/25/2024 11:29 AM [...] use of insulin 05/22/2024 Assessment & Plan (03/05/2025 6:01 PM EST): Orders: POCT Glucose Assessment & Plan (07/25/2024 11:25 AM EDT): [...] with this -patient is referred to [facility] program for diabetes mellitus management Assessment & [...] at subsequent visits Ulcer of both feet (CMS/HCC) 02/20/2024 Assessment & Plan (05/22/2024 12:17 PM [...] infection on exam. X rays ordered to steveal for osteomyelitis. Wounds dressed today. -referral to [...] with PCP Stage 3 chronic kidney disease ([facility]) 021 03/22/2023 Hyperkalemia 07/02/2020 03/22/2023 Diabetic nephropathy associa alex with type 2 diabetes mellitus 07/02/2020 03/22/2023 Forgetfulness 06/30/2017 03/22/2023 Disease related peripheral neuropathy 02/10/2017 03/22/2023 Perforation of nasal septum 02/05/201503/04 Obesity 02/05/2015 03/22/2023 Nondependent opioid abuse in remission 5 03/22/2023 Mixed, or nondependent drug abuse, episodic (CMS /HCC) 02/05/2015 03/22/2023 Hyperlipidemia associated with type 2 diabetes gris allen 02/05/2015 03/22/2023 Essential hypertension 02/05/2015 Assessment & [...] Encounters Date Type Department Care Team Description 03/18/2025 Orders Only GENERIC EXTERNAL DATA DEPARTMENT Provider, Generic External Data 03/06/2025 Telephone [facility] [address] [place] [address] Karla Barnes, RN 03/03/2025 Refill [facility] [address] [place], [place] [phone] Gemini Messer NP Depressive disorder 03/02/2025 Refill [facility] [address] [place], [place] [phone] Gemini Messer NP Depressive disorder 02/25/2025 2:00 PM EST Office Visit [address] [address] Gemini Mesesr NP Pre-op examination (Primary Dx); Type 2 diabetes mellitus with hyperglycemia, with long-term current use of insulin (HCC) 02/25/2025 Travel 02/25/[address] [address] Karla Barnes RN 02/24/[address] [address] Gemini Messer NP Chart Prep 02/20/[address] [address] Gemini Messer NP pre op 02/19/2025 Orders Only GENERIC EXTERNAL DATA DEPARTMENT Provider, Generic External Data 02/14/2025 Results Follow-Up [facility] [address] [place] [phone] Gemini Messer NP Glucose, Whole Blood, CBC auto differential, Lactic Acid, Additional followed-up results: 4 02/14/2025 Results Follow-Up [facility] [address] [place] [phone] Gemini Messer NP POCT Hgb A1c 02/13/2025 3:20 PM EST Office Visit [facility] [address] [place] [phone] Suzy Escobar MD Diabetic infection of right foot (HCC) (Primary Dx) 02/13/2025 Orders Only GENERIC EXTERNAL DATA DEPARTMENT Provider, Generic External Data 02/13/[address] [address] Dominique Hui, LOCKSTITCH BINDER Expect 02/13/2025 Travel 02/05/2025 Refill [facility] [address] [place] [address] Gemini Messer NP Type 2 diabetes mellitus with hyperglycemia, unspecified 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 biomass 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 insulin use (HCC); Type 2 diabetes mellitus treated with insulin (HCC) 01/30/2025 Refill [facility] [address] [place] [address] Gemini Messer NP Primary hypertension 01/14/2025 Refill [facility] [address] [place] [address] Gmeini Messer NP Moderate persistent asthma with (acute) exacerbation 01/14/2025 Travel 01/11/2025 11:40 AM EDT Office Visit [facility] [address] [place] [address] Frank Purdy MD Moderate persistent asthma with (acute) exacerbation (Primary Dx) 01/11/2025 Travel 01/06/2025 Refill [facility] [address] [place] [address] Gemini Mseser NP 12/23/2024 Refill [facility] [address] [place] [address] Gemini Messer NP Moderate asthma, unspecified whether complicated, unspecified whether persistent from Last 3 Months Immunizations Immunization Administration [...] Sign Reading Time Taken Comments Blood Pressure 140/90 02/25/2025 1:56 PM EST Pulse 89 02/25/2025 1:56 PM EST Temperature 36.7 C (98.1 F) 02/25/2025 1:56 PM EST Respiratory Rate 22 02/25/2025 1:56 PM EST Oxygen Saturation 96% 02/25/2025 1:56 PM EST Inhaled Oxygen Concentration - - Weight 109 kg (240 lb 3.2 oz) 02/25/2025 1:56 PM EST Height 182.9 cm (6') 02/25/2025 1:56 PM EST Body Mass Index 32.58 02/25/2025 1:56 PM EST Plan of Treatment Upcoming Encounters Date Type Department Care Team (Late st Contact Info) Description 04/01/2025 2:30 PM EST Medication Management [facility] [address] [place] [address] Anila Faustin, PharmD [address] [place] [address] 08/18/2025 2:00 PM EDT Office Visit [facility] OPTOMETRY [address] [place] [address] Clarissa Witt, OD [address] [place] [address] Health Maintenance Due Date Last Done Comments [...] Panel 11/12/2025 11/12/2024, 06/2024, 06/14/2021 Tobacco Screening 03/05/2026 03/05/2025 Eye Exam 08/16/2026 08/16/2024, 08/01, 08/16/2024, Additional [...] Plan Patient has chronic kidney disease No Ez, Dominique, RN Patient has chronic kidney disease Care [...] Weekly blood pressure task No Gemini Messer RESTORATION OFFICER Weekly blood pressure task Care Plan Weekly blood pressure task No Gemini Messer, RESTORATION OFFICER Weekly blood pressure task Care Plan Weekly blood pressure task No Gemini Messer, RESTORATION OFFICER Patient has chronic kidney disease Care Plan Patient has chronic kidney disease No Gemini Messer, RESTORATION OFFICER Patient has chronic kidney disease Care Plan Patient has chronic kidney disease No Gemini Messer, RESTORATION OFFICER Patient has chronic kidney disease Care Plan Patient has chronic kidney disease No Gemini Messer, RESTORATION OFFICER Patient has diabetic neuropathy Care Plan Patient has diabetic neuropathy No Gemini Messer RESTORATION OFFICER Patient has diabetic neuropathy Care Plan Patient has diabetic neuropathy No Gemini Messer, RESTORATION OFFICER Patient has diabetic neuropathy Care Plan Patient has diabetic neuropathy No Gemini Messer RESTORATION OFFICER Weekly blood pressure task Care Plan Weekly blood pressure task No Gemini Messer RESTORATION OFFICER Weekly blood pressure task Care Plan Weekly blood pressure task No Gemini Messer RESTORATION OFFICER Weekly blood pressure task Care Plan Weekly blood pressure task No Gemini Messer, RESTORATION OFFICER Patient has chronic kidney disease Care Plan Patient has chronic kidney disease No Gemini Messer, RESTORATION OFFICER Patient has chronic kidney disease Care Plan Patient has chronic kidney disease No Gemini Messer RESTORATION OFFICER Patient has chronic kidney disease Care Plan Patient has chronic kidney disease No Gemini Messer, RESTORATION OFFICER Patient has diabetic neuropathy Care Plan Patient has diabetic neuropathy No Gemini Messer, RESTORATION OFFICER Patient has diabetic neuropathy Care Plan Patient has diabetic neuropathy No Gemini Messer, RESTORATION OFFICER Patient has diabetic neuropathy Care Plan Patient has diabetic neuropathy No Gemini Messer RESTORATION OFFICER Weekly blood pressure task Care Plan Weekly blood pressure task No Elliot Antohny Weekly blood pressure task Care Plan Weekly blood pressure task No Elliot Anthony Weekly blood pressure task Care Plan Weekly blood pressure task No Elliot Anthony Patient has chronic kidney disease Care Plan Patient has chronic kidney disease No AlanaguiAraceli rowewaynealivia Patient has chronic kidney disease Care Plan Patient has chronic kidney disease No ShirleneuiAraceli rowewaynealivia Patient has chronic kidney disease Care Plan Patient has chronic kidney disease No ShirleneuiAraceli rowewaynealivia Patient has diabetic neuropathy Care Plan Patient has diabetic neuropathy No Araceli Anthonywaynealivia Patient has diabetic neuropathy Care Plan Patient has diabetic neuropathy No ShirleneuiAraceli rowewaynealivia Patient has diabetic neuropathy Care Plan Patient has diabetic neuropathy No ShirleneuiAraceli rowewaynealivia Weekly blood pressure task Care Plan Weekly blood pressure task No Yaneth Celestin, JOSHUA Weekly blood pressure task Care Plan Weekly blood pressure task No Yaneth Celestin, JOSHUA Weekly blood pressure task Care Plan Weekly blood pressure task No Mynor Yaneth Jules, [place] Patient has chronic kidney disease Care Plan Patient has chronic kidney disease No Mynor Yaneth Jules, [place] Patient has chronic kidney disease Care Plan Patient has chronic kidney disease No Mynor Yaneth Jules, [place] Patient has chronic kidney disease Care Plan Patient has chronic kidney disease No Mynor Yaneth Jules, [place] Patient has diabetic neuropathy Care Plan Patient has diabetic neuropathy No Mynor Yaneth Jules, JOSHUA Patient has diabetic neuropathy Care Plan Patient has diabetic neuropathy No Mynor Jules, Yaneth, [place] Patient has diabetic neuropathy Care Plan Patient has diabetic neuropathy No Mynor Yaneth Jules, [place] Weekly blood pressure task Care Plan [...] Care Plan Weekly blood pressure task No Zenia Payton, SAS PROGRAMMER REMOTE Weekly blood pressure task Care Plan Weekly blood pressure task No Zenia, Payton, SAS PROGRAMMER REMOTE Weekly blood pressure task Care Plan Weekly blood pressure task No Zenia Payton, SAS PROGRAMMER REMOTE Patient has chronic kidney disease Care Plan Patient has chronic kidney disease No Zenia Payton, SAS PROGRAMMER REMOTE Patient has chronic kidney disease Care Plan Patient has chronic kidney disease No Zenia, Payton, SAS PROGRAMMER REMOTE Patient has chronic kidney disease Care Plan Patient has chronic kidney disease No Zenia Payton, SAS PROGRAMMER REMOTE Patient has diabetic neuropathy Care Plan Patient has diabetic neuropathy No Zenia Payton, SAS PROGRAMMER REMOTE Patient has diabetic neuropathy Care Plan Patient has diabetic neuropathy No Zenia, Payton, SAS PROGRAMMER REMOTE Patient has diabetic neuropathy Care Plan Patient has diabetic neuropathy No Zenia, Payton, SAS PROGRAMMER REMOTE Weekly blood pressure task Care Plan Weekly [...] Patient has diabetic neuropathy No Karla Barnes BONI Patient has diabetic neuropathy Care Plan Patient has diabetic neuropathy No Karla Barnes, air control/anti air warfare officer Procedure Name Priority Date/Time Associated Diagnosis Comments MAGNESIUM Routine 03/18/2025 2:15 PM EST BASIC METABOLIC PANEL Routine 03/18/2025 2:15 PM EST HEPATIC FUNCTION PANEL Routine 2:15 PM EST HIGH SENSITIVITY TROPONIN I Routine 03/18/2025 2:15 PM EST PROTHROMBIN TIME-INR Routine 03/18/2025 2:15 PM EST CBC WITH AUTO DIFFERENTIAL Routine 03/18/2025 2:15 PM EST SARS COV2/INFLUENZA A/B AND RSV RNA QL NAAT Routine 03/18/2025 2:15 PM EST XR CHEST 1 VIEW Routine 03/18/2025 1:56 PM EST ECG 12-LEAD Routine 03/05/2025 5:54 PM EST Pre-op examination POCT GLUCOSE Routine 02/25/2025 1:57 PM EST Type 2 diabetes mellitus with hyperglycemia, with long-term current use of insulin (HCC) GRAM STAIN RESULT (NON ORDERABLE) Routine 02/19/2025 10:16 AM EST BLOOD CULTURE (SECOND) Routine 8:49 PM EST XR FOOT 3+ VIEWS [...] with long-term current use of insulin (HCC) LIPID PANEL WITH REFLEX TO DIRECT LDL Routine 11/12/2024 10:51 AM EDT PANORAMIC RADIOGRAPHIC IMAGE Routine 03/25/2024 1:00 PM EST PERIODIC ORAL EVALUATION - ESTABLISHED PATIENT Routine 03/25/2024 1:00 PM EST BITEWINGS - 4 RADIOGRAPHIC IMAGES Routine 09/09/2014 12:00 AM EDT from Last 3 Months or Most Recently Relevant to Health Maintenance Results * High Sensitivity Troponin I (03/18/2025 2:15 PM EST) TROPONIN I HIGH SENSITIVITY 5.9 <3.5 - 35.0 ng/L [facility] Comment:The Rosenthal high sens itivity Troponin-I results should beused in conjunction with other diagnostic information suchas ECG, clinical observations and information, and patientsymptoms to aid in the diagnosis of IN. 03/18/2025 2:15 PM EST 03/18/2025 2:22 PM EST us Generic External Data Provider LAB BLOOD ORDERAB LES Final Result [facility] [address] [place] [phone] * SARS-CoV-2 RNA, Influenza A/B, and RSV RNA, Ql NAAT (03/18/2025 2:15 PM EST) Pathologist [facility] Influenza A PCR NEGATIVE Negative [facility] Influenza B PCR NEGATIVE Negative [facility] Resp Syncy Virus RNA Qual PCR NEGATIVE Negative [facility] SARS COV2 PCR NEGATIVE Negative [facility] Comment:All test results mus t be [...] use by authorized laboratories.Testing performed on the Musement GeneXpert utilizingreal-time RT-PCR.All SARS CoV2 and positive influenza A/B results arereported to [facility]. 03/18/2025 2:15 PM EST 03/18/2025 2:22 PM EST us Generic External Data Provider LAB MICROBIOLOGY - GENERAL ORDERABLES Final Result [facility] [address] [place] [phone] * (ABNORMAL) CBC auto differential (03/18/2025 2:15 PM EST) Only the most recent of2 resultswithin the time period is included. Pathologist [facility] White Blood Count 9.1 4.8 - 10.8 X10*3/uL [facility] Red Blood Count 4.50(L) 4.60 - 5.80 X10*6/uL [facility] Hemoglobin 12.9(L) 14.0 - 18.0 g/dl [facility] Hematocrit 38.3(L) 42.0 - 52.0 % [facility] Mean Corpuscular Volume 85.1 80.0 - 98.0 fL [facility] Mean Corpuscular Hemoglobin 28.7 27.0 - 33.0 pg [facility] Mean Corpuscular HGB Conc 33.7 31.0 - 36.0 g/dl [facility] Red Cell Distribution Width 13.3 11.0 - 16.0 % [facility] Platelet Count 176 160 - 400 X10*3/uL [facility] Mean Platelet Volume 11.8 9.4 - 12.4 fL [facility] Neutrophils Percent Auto 75.5(H) 45 - 73 % [facility] Imm Gran Pct Auto 0.3 0.0 - 0.4 % [facility] Lymphocytes Percent Auto 14.1(L) 20 - 40 % [facility] Monocytes Percent Auto 8.7 2 - 11 % [facility] Eosinophils Percent Auto 1.0 0 - 4 % [facility] Basophils Percent Auto 0.4 0 - 2 % [facility] NRBC Pct Auto 0.0 0.0 - 0.2 /100WBC [facility] Neutrophils Absolute Auto 6.9 2.0 - 8.3 x10*3/uL [facility] Imm Gran Abs Auto 0.03 0.00 - 0.03 X10*3/uL [facility] Lymphocytes Absolute Auto 1.3 1.2 - 4.9 X10*3/uL [facility] Monocytes Absolute Auto 0.8 0.1 - 1.2 X10*3/uL [facility] Eosinophils Absolute Auto 0.1 0.0 - 0.4 X10*3/uL [facility] Basophils Absolute Auto 0.0 0.0 - 0.2 X10*3/uL [facility] NRBC Abs Auto 0.000 0.0 - 0.012 X10*3/uL [facility] 03/18/2025 2:15 PM EST 03/18/2025 2:22 PM EST us Generic External Data Provider LAB BLOOD ORDERAB LES Final Result [facility] [address] [place] [phone] * Prothrombin Time-INR (03/18/2025 2:15 PM EST) Pathologist [facility] Prothrombin Time 11.8 11.2 - 13.5 SEC [facility] INTERNATIONAL NORM RATIO 1.0 0.9 - 1.1 [facility] Comment:INTERNATIONAL NORMAL IZED RATIO (INR) REFERENCE [...] 2:15 PM EST 03/18/2025 2:22 PM EST Generic External Data Provider LAB BLOOD ORDERAB LES Final Result Performing Organization Address [facility] Phone Number [facility] [address] [place] [phone] * Magnesium (03/18/2025 2:15 PM EST) [facility] Magnesium 1.8 1.6 - 2.6 mg/dL [facility] 03/18/2025 2:15 PM EST 03/18/2025 2:22 PM EST Generic External Data Provider LAB BLOOD ORDERAB LES Final Result Performing Organization Address [facility] Phone Number [facility] [address] [place] [phone] * Hepatic Function Panel (03/18/2025 2:15 PM EST) Pathologist [facility] Bilirubin, Total 0.3 0.0 - 1.0 mg/dL [facility] Bilirubin, Direct 0.1 0.0 - 0.5 mg/dL [facility] Aspartate Amino Transferase 21 5 - 37 U/L [facility] Alanine Aminotransferase 20 0 - 40 U/L [facility] Total Protein 7.1 6.5 - 8.0 g/dL [facility] Albumin Level 4.1 3.5 - 5.0 g/dL [facility] Alkaline Phosphatase 83 39 - 117 U/L [facility] 03/18/2025 2:15 PM EST 03/18/2025 2:22 PM EST us Generic External Data Provider LAB BLOOD ORDERAB LES Final Result [facility] [address] [place] [phone] * (ABNORMAL) Basic Metabolic Panel (03/18/2025 2:15 PM EST) Sodium 128(L) 135 - 145 mmol/L [facility] Potassium 5.0 3.3 - 5.1 mmol/L [facility] Chloride 99 96 - 108 mmol/L [facility] Carbon Dioxide 23 22 - 29 mmol/L [facility] Anion Gap 11(L) 12 - 20 [facility] Urea Nitrogen (BUN) 20(H) 9 - 16 mg/dL [facility] Creatinine, Serum 0.90 0.5 - 1.4 mg/dL [facility] Creatinine Clr Calc Pharmacy 111.9 [facility] Comment:eGFR (calculated fro m the MDRD study equation) and eCrCl(calculated from the Cockcroft-Gault equation) are based ondifferent parameters and may not yield comparable results.If eCrCl result is absurd, please check patient'sheight/weight. Estimated Glomerular Filt Rate >60 [facility] Comment:Chronic Kidney Disea se: Estimated GFR < 60 mL/min/[id number] Kidney Disease: Estimated GFR < 15 mL/min/1.73m2 Glucose 365(HH) 60 - 115 mg/dL [facility] Comment:Critical value for G LUR: Results called to and read anitay: MARCIAL Person calling: RENE Date: 03/18/25 Time: 1459 Calcium 9.0 8.4 - 10.2 mg/dL [facility] 03/18/2025 2:15 PM EST 03/18/2025 2:22 PM EST us Generic External Data Provider LAB BLOOD ORDERAB LES Final Result [facility] [address] [place] [phone] * XR Chest 1 View (03/18/2025 1:56 PM EST) Anatomical Region Laterality Modality Chest Radiographic Rox ging 03/18/2025 1:56 PM EST Narrative 03/18/2025 2:08 PM EST [address] [address] XRay Report Signed Patient: Mckinley Berry MR#: [id number] 2032 : 1965 Acct:[id number] Age/Sex: 59 / M ADM Date: 03/18/25 Loc: HO.ED Attending Dr: Ordering Physician: Luna Hall DO Date of Service: 03/18/25 Procedure(s): XR chest 1V Accession Number(s): [id number] cc: Luna Hall DO; [facility] Reason for Exam: dyspnea EXAMINATION: XR CHEST CLINICAL INFORMATION: dyspnea COMPARISON: January 24, 2024 TECHNIQUE: AP view of the chest was obtained. FINDINGS: Pulmonary reticular pattern. Prominence of the interstitial lung markings. No hyperinflation. No consolidation pleural effusion or pneumothorax. Cardiomediastinal silhouette size is normal. Mild multilevel thoracic spondylosis. Degenerative changes in the acromioclavicular joints. XR/XR chest 1V IMPRESSION: Concerning acute small airway inflammatory processes versus multifocal pneumonia. Electronically signed by: Agustín Ware MD 03/18/2025 02:05 PM EST RP Dictated By: Agustín Hanson MD Signed By: <Electronically signed by Agustín Hui MD in OV> 03/18/25 1405 DD/ 1356 TD/TT: 03/18/[address] Pilot: Procedure Note Donotkymberlyinterpreter, Image - 03/18/[address] [address] XRay Report Signed Patient: Mckinley Berry SMR#: [id number] 2031 : 1965Acct:[id number] Age/Sex: 59 / MADM Date: 03/18/25 Loc: HO.ED Attending Dr: Ordering Physician: Luna Hall DO Date of Service: 03/18/25 Procedure(s): XR chest 1V Accession Number(s): [id number] cc: Luna Hall DO; [facility] Reason for Exam: dyspnea EXAMINATION: XR CHEST CLINICAL INFORMATION: dyspnea COMPARISON: January 24, 2024 TECHNIQUE: AP view of the chest was obtained. FINDINGS: Pulmonary reticular pattern. Prominence of the interstitial lung markings. No hyperinflation. No consolidation pleural effusion or pneumothorax. Cardiomediastinal silhouette size is normal. Mild multilevel thoracic spondylosis. Degenerative changes in the acromioclavicular joints. XR/XR chest 1V IMPRESSION: Concerning acute small airway inflammatory processes versus multifocal pneumonia. Electronically signed by: Agustín Ware MD 03/18/2025 02:05 PM EST Dictated By: Agustín Hanson MD Signed By: <Electronically signed by Agustín Hui MDin OV> 03/18/25 1405 DD/ 1356 TD/TT: 03/18/[address] Pilot: [facility] External Provider IMG XR PROCEDURES Edited Result - Final * ECG 12 lead (03/05/2025 5:54 PM EST) Gemini Pang NP - 03/05/2025 5:54 PM EST HR bpm, left axis, slightly prolonged AR interval and bundle branch block, normal morphology. Sinus rhythm ECG Gemini Messer NP ECG ORDERABLES Final Result * (ABNORMAL) POCT Glucose (02/25/2025 1:57 PM EST) Glucose Blood, POC 256(A) 60 - 200 mg/dL QC Media Lot # [id number] Lot# Expiration Date 72 Blood Capillary blood specimen / Unknown 02/25/2025 1:57 PM EST Gemini Messer RESTORATION OFFICER POINT OF CARE TEST ENTER/EDIT O RDERABLES Final Result * Gram Stain Result (02/19/2025 10:16 AM EST) 02/19/2025 10:1 6 AM EST 02/19/2025 6:35 PM EST Comment:Toe Rt 3rd Narrative [facility] - 02/22/2025 7:36 AM EST Gram stain results: 1+ polys 2+ red blood cells No organisms seen Routine Culture Report - external Routine Culture 1+ Mixed skin rangel Methicillin Res Staph Aureus Quant Org ID 1+ Methicillin Res Staph Aureus: Clindamycin <=0.25(R) Methicillin Res Staph Aureus: Erythromycin >=8(R) Methicillin Res Staph Aureus: Oxacillin >=4(R) Methicillin Res Staph Aureus: Penicillin-G >=0.5(R) Methicillin Res Staph Aureus: Tetracycline >=16(R) Methicillin Res Staph Aureus: Trimethoprim/Sulfamethoxazole <=10(S) Methicillin Res Staph Aureus: Vancomycin 1(S) Specimen Source: Toe Right Third Generic External Data Provider HISTORICAL/NON OR DERABLE LABS Final Result [facility] [address] [place] [phone] * Blood Culture (Second) (02/13/2025 8:49 PM EST) Blood Venous blood specimen / Unknown 02/13/2025 8:49 PM EST 02/13/2025 8:54 PM EST Comment:Blood Narrative [facility] - 02/18/2025 10:54 PM EST Blood Culture (Second) No growth after 5 days. Specimen Source: Blood us Generic External Data Provider LAB MICROBIOLOGY - GENERAL ORDERABLES Final Result [facility] [address] [place] [phone] * XR Foot 3+ Views Right (02/13/2025 6:28 PM EST) Anatomical Region Laterality Modality Lower Extremities, Foot Right Radiogra phic Imaging 02/13/2025 6:28 PM EST Narrative 02/13/2025 6:29 PM EST [address] [address] XRay Report Signed Patient: Mckinley Berry MR#: [id number] 2031 : 1965 Acct:[id number] Age/Sex: 59 / M ADM Date: 02/13/25 Loc: HO.ED Attending Dr: Ordering Physician: Escobar Parker Date of Service: 02/13/25 Procedure(s): XR foot RT min 3V Accession Number(s): [id number] cc: Gemini Messer; Escobar Parker Reason for [...] signed by Jeff Otto MD in OV> 02/13/25 1829 DD/ 27 TD/TT: 02/13/251827 Highway Patrol Pilot: Procedure Note Donotuseinterpreter, Image - 02/13/[address] [address] XRay Report Signed Patient: Mckinley Berry [facility]#: [id number] 2031 : 1965Acct:[id number] Age/Sex: 59 / MADM Date: 02/13/25 Loc: HO.ED Attending Dr: Ordering Physician: Escobar Parker Date of Service: 02/13/25 Procedure(s): XR foot RT min 3V Accession Number(s): [id number] cc: Gemini Messer; Escobar Parker Reason for [...] in OV> 02/13/251828 DD/ 27 TD/TT: 02/13/251827 Highway Patrol Pilot: [facility] External Provider IMG XR PROCEDURES Final Result * Blood Culture (First) (02/13/2025 5:12 PM EST) Blood Venous blood specimen / Unknown 02/13/2025 5:12 PM EST 02/13/2025 5:16 PM EST Comment:Blood Narrative [facility] - 02/18/2025 7:16 PM EST Blood Culture (First) No growth after 5 days. Specimen Source: Blood Generic External Data Provider LAB MICROBIOLOGY - GENERAL ORDERABLES Final Result Performing Organization Address [facility] Co de Phone Number [facility] [address] [place] [address] [phone] * (ABNORMAL) Glucose, Whole Blood (02/13/2025 5:12 PM EST) Glucose, Whole Blood 120(H) 60 - 115 mg/dL [facility] Comment:METER #: [id number] 02/13/2025 5:12 PM EST 02/13/2025 5:16 PM EST Generic External Data Provider LAB BLOOD ORDERAB LES Final Result Performing Organization Address [facility] Co de Phone Number [facility] [address] [place] [phone] * (ABNORMAL) Sed Rate by Modified Kyleren (02/13/2025 5:12 PM EST) Erythrocyte Sedimentation Rate 77(H) 0 - 15 MM/HR [facility] Comment:Patients with polycy themia and many hemoglobin abnormalitiesmay have depressed sed rates whereas patients with anemiamay have elevated sed rates. 02/13/2025 5:12 PM EST 02/13/2025 5:16 PM EST Generic External Data Provider LAB BLOOD ORDERAB LES Final Result Performing Organization Address [facility] Co de Phone Number [facility] [address] [place] [address] [phone] * (ABNORMAL) C-reactive Protein (02/13/2025 5:12 PM EST) C Reactive Protein 8.07(H) < or = 0.50 mg/dL [facility] 02/13/2025 5:12 PM EST 02/13/2025 5:16 PM EST Generic External Data Provider LAB BLOOD ORDERAB LES Final Result Performing Organization Address [facility] Co de Phone Number [facility] [address] [place] [phone] * Lactic Acid (02/13/2025 5:12 PM EST) Lactic Acid 0.6 0.5 - 2.0 mmol/L [facility] 02/13/2025 5:12 PM EST 02/13/2025 5:16 PM EST Generic External Data Provider LAB BLOOD ORDERAB LES Final Result Performing Organization Address [facility] de Phone Number [facility] [address] [place] [address] [phone] * (ABNORMAL) Comprehensive Metabolic Panel (02/13/2025 5:12 PM EST) Sodium 135 135 - 145 mmol/L [facility] Potassium 4.6 3.3 - 5.1 mmol/L [facility] Chloride 98 96 - 108 mmol/L [facility] Carbon Dioxide 30(H) 22 - 29 mmol/L [facility] Anion Gap 12 12 - 20 [facility] Urea Nitrogen (BUN) 17(H) 9 - 16 mg/dL [facility] Creatinine, Serum 0.88 0.5 - 1.4 mg/dL [facility] Creatinine Clr Calc Pharmacy 114.2 [facility] Comment:eGFR (calculated fro m the MDRD study equation) and eCrCl(calculated from the Cockcroft-Gault equation) are based ondifferent parameters and may not yield comparable results.If eCrCl result is absurd, please check patient'sheight/weight. Estimated Glomerular Filt Rate >60 [facility] Comment:Chronic Kidney Disea se: Estimated GFR < 60 mL/min/1.34l5Svfuob Kidney Disease: Estimated GFR < 15 mL/min/1.73m2 Glucose 122(H) 60 - 115 mg/dL [facility] Calcium 9.5 8.4 - 10.2 mg/dL [facility] Bilirubin, Total 0.2 0.0 - 1.0 mg/dL [facility] Aspartate Amino Transferase 17 5 - 37 U/L [facility] Alanine Aminotransferase 16 0 - 40 U/L [facility] Total Protein 7.7 6.5 - 8.0 g/dL [facility] Albumin Level 4.2 3.5 - 5.0 g/dL [facility] Alkaline Phosphatase 84 39 - 117 U/L [facility] 02/13/2025 5:12 PM EST 02/13/2025 5:16 PM EST Generic External Data Provider LAB BLOOD ORDERAB LES Final Result Performing Organization Address City/State/[facility] Co de Phone Number [facility] [address] [place] [phone] * (ABNORMAL) POCT Hgb A1c (02/13/2025 3:11 PM EST) Hemoglobin A1C 9.4(A) 4.0 - 5.7 % Blood 02/13/2025 3:11 PM EST Gemini Messer NP POINT OF CARE TEST ENTER/EDIT O RDERABLES Final Result * (ABNORMAL) Lipid Panel with Reflex to Direct LDL (11/12/2024 10:51 AM EDT) Triglycerides 224(H) <150 mg/dL [facility] Comment:Desirable Triglyceri de: less than 150 mg/dLBorderline High Triglyceride 150-199 mg/dLHigh Triglyceride: 200-499 mg/dLVery High Triglyceride: greater than or equal to 5OO mg/dL Cholesterol 133 <200 mg/dL [facility] Comment:Desirable Cholestero l: less than 200 mg/dLBorderline High Cholesterol: 200-239 mg/dLHigh Cholesterol: greater than 239 mg/dL LDL Cholesterol Calculated 51 <100 mg/dL [facility] Comment:Desirable LDL: less than 100 mg/dLNear Optimal/Above Optimal LDL: 110- 129 mg/dLBorderline High LDL: 130-159 mg/dLHigh LDL: 160-189 mg/dLVery High LDL: greater than or equal to 190 mg/dL HDL Cholesterol 38(L) >40 mg/dL [facility] Comment:Desirable HDL: great er than 40 mg/dL Note: This HDL assay may give artificially low results in patients with liver disease. 11/12/2024 10:5 1 AM EDT 11/12/2024 1:21 PM EDT us Gemini Messer NP LAB BLOOD ORDERABLES Final Resu lt [facility] [address] [place] [address] [phone] from Last 3 Months or Most [...] neuropathy 03/06/2025 Patient has diabetic neuropathy 03/06/2025 Insurance [facility] < 65 [place] [id number] * Guarantor: Mckinley Berry Account Type Relation to Patient Date of Phone Billing Address Personal/Family Self [address] [place] Care Teams Segment Assembler Relationship Specialty Start Date End Date Gemini Messer NP [address] [place] [address] PCP - General Family Medicine 02/08/24 Anila Faustin PharmD [address] [place] [address] Pharmacist Internal Medicine 06/05/24 [facility] 07/23/24
== END 2025-03-18 15:58 | disposition home or self-care (01) ==
PROVIDERS: Emergency Medicine; Emergency Provider Student in an Organized Health Care Education/Training Program
DX: J18.9 Pneumonia, unspecified organism (principal); E11.65 Type 2 diabetes mellitus with hyperglycemia; R00.8 Other abnormalities of heart beat; Z03.818 Encounter for observation for suspected exposure to other biological agents ruled out; R06.02 Shortness of breath; F41.9 Anxiety disorder, unspecified; R19.7 Diarrhea, unspecified; R06.00 Dyspnea, unspecified; R94.31 Abnormal electrocardiogram [ECG] [EKG]; Z79.899 Other long term (current) drug therapy; Z79.4 Long term (current) use of insulin; J45.909 Unspecified asthma, uncomplicated; Z79.51 Long term (current) use of inhaled steroids
CPT/HCPCS: 71045; 80048; 80076; 83735; 84484; 85025; 85610; 87637; 93005; 99283; 99284

== ENCOUNTER → 2025-03-18 13:50 | Outpatient (BNV) | payer OTHER, SELFPAY | PROVIDERS: Emergency Provider Student in an Organized Health Care Education/Training Program; Visit Provider Internal Medicine Cardiovascular Disease | DX: I49.3 Ventricular premature depolarization (principal) | CPT/HCPCS: 93010 ==

== ENCOUNTER → 2025-03-18 13:50 | Outpatient (BNV) | payer OTHER, SELFPAY | PROVIDERS: Emergency Provider Student in an Organized Health Care Education/Training Program; Visit Provider Radiology Diagnostic Radiology | DX: R06.00 Dyspnea, unspecified (principal) | CPT/HCPCS: 71045 ==

== ENCOUNTER → 2025-03-24 14:47 | Outpatient (BNV) | payer OTHER, SELFPAY | PROVIDERS: Visit Provider Radiology Diagnostic Radiology | DX: M86.571 Other chronic hematogenous osteomyelitis, right ankle and foot (principal) | CPT/HCPCS: 73720 ==

== ENCOUNTER 2025-03-24 15:01 | Outpatient (REF) | payer OTHER, SELFPAY ==
--- NOTE | ~2025-03-24 | MR_ITS ---
EXAMINATION: MR FOOT WITHOUT CONTRAST, RIGHT CLINICAL INFORMATION: Right erythema and swelling, erosive changes involving the tuft of third digit on prior x-ray, evaluate for osteomyelitis COMPARISON: X-ray of 02/13/2025 and 03/25/2024, MRI April 17, 2024 TECHNIQUE: MRI of the right foot was attempted without contrast FINDINGS: The patient elected to terminate the study early due to anxiety. 2 Localizer scans were performed and demonstrate no gross abnormality, nondiagnostic and very limited study. MR/MR foot RT wo/w con IMPRESSION: Aborted exam Electronically signed by: Severiano Juarez MD 03/24/2025 04:03 PM EST
--- OUTSIDE RECORDS SUMMARY | 2025-03-24 18:15 | XMS_ITS | Encounter Summary ---
Author Organization [employer] Address [address] [facility] 7t [place] [address] Care Team Providers Care Dispersion Mixer Name Role Phone Ruthie SchwarzP Primary Care Provider [phone] Yamile Ramsay SCOURING MACHINE OPERATOR Primary Care Provider [phone] Gemini Messer MINE DEVELOPMENT ENGINEER Primary Care Provider [phone] PuAnila ying PharmD Unavailable [phone] Reason for Visit * Reason Onset Date Comments Requested Call Back 10/20/2022 Encounter Details Date Type Department Care Team (Late st Contact Info) Description 10/20/2022 Telephone [facility] MEDICINE [address] [place] [address] Ruthie Schwarz FNP [address] [place], [place] [phone] Requested Call Back Social History Tobacco Use [...] AM EDT Pt is still admitted at [facility] for multifocal pneumonia. * Telephone Encounter - Herminia Garcia 10/20/2022 11:37 AM EDT Tc from [facility] requesting a call back, in regards to PCP signing [facility] orders. Please call [phone] documented in this encounter Plan of Treatment Upcoming Encounters Date Type Department Care Team (Late st Contact Info) Description 04/01/2025 2:30 PM EST Medication Management [facility] MEDICINE [address] [place] [address] Anila Faustin PharmD [address] [place] [address] 08/18/2025 2:00 PM EDT Office Visit [facility] OPTOMETRY [address] [place] [address] Clarissa Witt, OD [address] [place] [address] documented as of this encounter Visit Diagnoses Not on filedocumented in this encounter Care Teams Dispersion Mixer Relationship Specialty Start Date End Date Ruthie Schwarz FNP [address] [place] [phone] PCP - General Family Medicine 11/25/21 01/23/24 Yamile Ramsay FNP [address] [place] [address] PCP - General Family Medicine 01/24/24 02/01/24 Gemini Messer NP [address] [place] [address] PCP - General Family Medicine 02/08/24 Anila Faustin, PharmD [address] [place] [address] Pharmacist Internal Medicine 06/05/24 [facility] 07/23/24 documented as of this encounter
--- OUTSIDE RECORDS SUMMARY | 2025-03-24 18:15 | XMS_ITS | Encounter Summary ---
Author Organization [employer] Address [address] [place] [address] 7t [place] [address] Care Team Providers Care Cold Header Operator Name Role Phone Karishma Ruthie INVESTOR RELATIONS COORDINATOR Primary Care Provider Yamile Ramsay INVESTOR RELATIONS COORDINATOR Primary Care Provider Gemini Messer RADIATOR CORE TESTER Primary Care Provider [phone] Puia Anila PharmD Unavailable Encounter Details Date Type Department Care Team (Late st Contact Info) Description 01/21/2024 Orders Only [facility] CHC MED & PEDS [address] [place], [place] [phone] Ruthie Schwarz INVESTOR RELATIONS COORDINATOR [address] [place], [place] [phone] Social History Tobacco Use Types Packs/Day Years [...] [facility] MEDICINE [address] [place] [address] Puia, Anila, PharmD [address] [place], [place] [phone] 08/18/2025 2:00 PM EDT Office Visit [facility] OPTOMETRY [address] [place] [address] Clarissa Witt, OD [address] [place] [address] documented as of this encounter Visit Diagnoses Not on filedocumented in this encounter Care Teams Cold Header Operator Relationship Specialty Start Date End Date Ruthie Schwarz FNP [address] [place] [address] PCP - General Family Medicine 11/25/21 01/23/24 Yamile Ramsay FNP [address] [place] [address] PCP - General Family Medicine 01/24/24 02/01/24 Gemini Messer NP [address] [place] [address] PCP - General Family Medicine 02/08/24 Anila Faustin PharmD [address] [place] [address] Pharmacist Internal Medicine 06/05/24 [facility] 07/23/24 documented as of this encounter
--- OUTSIDE RECORDS SUMMARY | 2025-03-24 18:15 | XMS_ITS | Encounter Summary ---
Author Organization [employer] Address [address] [place] [address] 7t [place] [address] Care Team Providers Care Hotel Maintenance Technician Name Role Phone Ruthie Schwarz REAL ESTATE COORDINATOR Primary Care Provider Yamile Ramsay REAL ESTATE COORDINATOR Primary Care Provider Gemini Messer TIGHT ROPE WALKER Primary Care Provider [phone] Anila Faustin PharmD Unavailable [phone] Encounter Details Date Type Department Care Team (Late st Contact Info) Description 04/15/2022 Orders Only [facility] CHC MED & PEDS [address] [place] [address] Payton Knutson LPN Social History Tobacco Use [...] 04/01/2025 2:30 PM EST Medication Management [facility] MEDICINE [address] [place], [place] [phone] PuiaRickieAnila, PharmD [address] [place], [place] [phone] 08/18/2025 2:00 PM EDT Office Visit [facility] OPTOMETRY [address] [place], [place] [phone] Clarissa Witt, OD 267 [facility] [place] [address] documented as of this encounter Visit Diagnoses Not on filedocumented in this encounter Care Teams Hotel Maintenance Technician Relationship Specialty Start Date End Date Ruthie Schwarz FNP [address] [place] [address] PCP - General Family Medicine 11/25/21 01/23/24 Yamile Ramsay FNP [address] [place] [address] PCP - General Family Medicine 01/24/24 02/01/24 Gemini Messer NP [address] [place] [address] PCP - General Family Medicine 02/08/24 Anila Faustin PharmD [address] [place] [phone] Pharmacist Internal Medicine 06/05/24 [facility] Care 07/23/24 documented as of this encounter
--- OUTSIDE RECORDS SUMMARY | 2025-03-24 18:15 | XMS_ITS | Encounter Summary ---
Author Organization [employer] Address [address] [place] [address] 7t [place] [address] Care Team Providers Care Back Tender Pulp Drier Name Role Phone Ruthie Schwarz ELECTRICIAN RESEARCH Primary Care Provider Yamile Ramsay ELECTRICIAN RESEARCH Primary Care Provider [phone] Gemini Messer CHAIR FRAME BUILDER Primary Care Provider [phone] Anila Faustin PharmD Unavailable Encounter Details Date Type Department Care Team (Late st Contact Info) Description 03/31/2022 Orders Only [facility] MEDICINE [address] [place] [address] Jill Felix, BONI Social History Tobacco Use [...] 2:30 PM EST Medication Management [facility] MEDICINE [address] [place] [address] PuiaElisa, PharmD [address] [place] [address] 08/18/2025 2:00 PM EDT Office Visit [facility] OPTOMETRY [address] [place] [address] Clarissa Witt, OD [address] [place] [address] documented as of this encounter Visit Diagnoses Not on filedocumented in this encounter Care Teams Back Tender Pulp Drier Relationship Specialty Start Date End Date Ruthie Schwarz FNP [address] [place] [address] PCP - General Family Medicine 11/25/21 01/23/24 Yamile Ramsay FNP [address] [place] [address] PCP - General Family Medicine 01/24/24 02/01/24 Gemini Messer NP [address] [place] [address] PCP - General Family Medicine 02/08/24 Anila Faustin, Connie [address] [place] [phone] Pharmacist Internal Medicine 06/05/24 [facility] Care 07/23/24 documented as of this encounter
--- OUTSIDE RECORDS SUMMARY | 2025-03-24 18:15 | XMS_ITS | Encounter Summary ---
Author Organization [employer] Address [address] [facility] 7t [place] [address] Care Team Providers Care Cardiothoracic Icu Rn Name Role Phone Ruthie SchwarzP Primary Care Provider Yamile Ramsay RESEARCH ELECTRICIAN Primary Care Provider Gemini Messer AUTOMOTIVE PARTS SPECIALIST Primary Care Provider [phone] Anila Faustin PharmD Unavailable Reason for Visit * Reason Onset Date Comments triage 04/27/2022 Encounter Details Date Type Department Care Team (Late st Contact Info) Description 04/27/2022 Telephone [facility] MEDICINE [address] [place] [address] Ruthie Schwarz FNP [address] [place], [place] [phone] triage Social History Tobacco Use Types Packs/Day [...] Description 04/01/2025 2:30 PM EST Medication Management [facility] MEDICINE 230 [facility] [place] [address] Anila Faustin PharmD [address] [facility] [place] [address] 08/18/2025 2:00 PM EDT Office Visit [facility] OPTOMETRY [address] [place] [address] Tarka, Clarissa, OD [address] [place] [address] documented as of this encounter Visit Diagnoses Not on filedocumented in this encounter Care Teams Cardiothoracic Icu Rn Relationship Specialty Start Date End Date Ruthie Schwarz FNP [address] [place] [address] PCP - General Family Medicine 11/25/21 01/23/24 Yamile Ramsay FNP [address] [facility] [place] [address] PCP - General Family Medicine 01/24/24 02/01/24 Gemini Messer NP [address] [place] [address] PCP - General Family Medicine 02/08/24 Anila Fautsin PharmD [address] [place] [address] [place] [address] Pharmacist Internal Medicine 06/05/24 [facility] 07/23/24 documented as of this encounter
--- OUTSIDE RECORDS SUMMARY | 2025-03-24 18:15 | XMS_ITS | Encounter Summary ---
Author Organization [employer] Address [address] [place] [address] 7t [place] [address] Care Team Providers Care Carbonator Name Role Phone Ruthie Schwarz AUTOMOBILE MECHANIC Primary Care Provider Yamile Ramsay AUTOMOBILE MECHANIC Primary Care Provider Gemini Messer GRILL CHEF Primary Care Provider [phone] Anila Faustin PharmD Unavailable Encounter Details Date Type Department Care Team (Late st Contact Info) Description 03/16/2022 Orders Only [facility] CHC MED & PEDS [address] [place] [address] Payton Knutson LPN Social History Tobacco Use [...] Medication Management [facility] MEDICINE [address] [place], [place] [phone] PuiaRickieAnila, PharmD [address] [place], [place] [phone] 08/18/2025 2:00 PM EDT Office Visit [facility] OPTOMETRY [address] [place], [place] [phone] Clarissa Witt, OD [address] [place] [address] documented as of this encounter Visit Diagnoses Not on filedocumented in this encounter Care Teams Carbonator Relationship Specialty Start Date End Date Ruthie Schwarz FNP [address] [place] [address] PCP - General Family Medicine 11/25/21 01/23/24 Yamile Ramsay FNP [address] [place] [address] PCP - General Family Medicine 01/24/24 02/01/24 Gemini Messer NP [address] [place] [address] PCP - General Family Medicine 02/08/24 Anila Faustin PharmD [address] [place] [phone] Pharmacist Internal Medicine 06/05/24 [facility] Care 07/23/24 documented as of this encounter
--- OUTSIDE RECORDS SUMMARY | 2025-03-24 18:15 | XMS_ITS | Encounter Summary ---
Author Organization [employer] Address 75 [facility] 7t [place] [address] Care Team Providers Care Investigator Fraud Name Role Phone Gemini Messer NP Primary Care Provider [phone] Anila Faustin PharmD Unavailable [phone] Encounter Details Date Type Department Care Team (Late st Contact Info) Description 05/16/2024 Orders Only [facility] [address] [place], [place] [phone] Gemini Messer NP 230 [place] [address] Social History Tobacco Use Types Packs/Day Years [...] PM EST Medication Management [facility] [address] [place] [address] Anila Faustin PharmD 230 [place] [address] 08/18/2025 2:00 PM EDT Office Visit [facility] [address] [place] [address] TarkaClarissa, OD 267 [place] [address] documented as of this encounter Visit Diagnoses Not on filedocumented in this encounter Additional Health Concerns Assessment Noted Time PHQ-9 Depression Total Score: 11 025 1:12 PM EST documented as of this encounter Care Teams Investigator Fraud Relationship Specialty Start Date End Date Gemini Messer NP [address] [place] [address] PCP - General Family Medicine 02/08/24 Anila Faustin, PharmD 230 [place] [address] Pharmacist Internal Medicine 06/05/24 [facility] 07/23/24 documented as of this encounter
--- OUTSIDE RECORDS SUMMARY | 2025-03-24 18:15 | XMS_ITS | Encounter Summary ---
Author Organization [employer] Address [address] [place] [address] 7t [place] [address] Care Team Providers Care Baseball Pitcher Name Role Phone Ruthie Schwarz NAUTICAL INSTRUMENT MECHANIC Primary Care Provider Yamile Ramsay NAUTICAL INSTRUMENT MECHANIC Primary Care Provider Gemini Messer CELLAR PACKER Primary Care Provider [phone] PuiaRickieAnila PharmD Unavailable Reason for Visit * Reason Comments Med Refill Encounter Details Date Type Department Care Team (Late st Contact Info) Description 01/18/2024 Refill [facility] [address] [place], [place] [phone] Ruthie Schwarz FNP 505 [place], [place] [phone] Type 2 diabetes mellitus treated with insulin ([facility]) Social History Tobacco Use Types Packs/Day [...] Description 04/01/2025 2:30 PM EST Medication Management [facility] [address] [place], [place] [phone] Puia, Anila, PharmD 230 [place], [place] [phone] 08/18/2025 2:00 PM EDT Office Visit [facility] [address] [place] [address] Clarissa Witt, OD [address] [place] [address] documented as of this encounter Visit Diagnoses Diagnosis Type 2 diabetes mellitus treated with insulin (HCC) documented in this encounter Care Teams Baseball Pitcher Relationship Specialty Start Date End Date Ruthie Schwarz FNP 230 [place] [address] PCP - General Family Medicine 11/25/21 01/23/24 Yamile Ramsay FNP 230 [place] [address] PCP - General Family Medicine 01/24/24 02/01/24 Gemini Messer NP 230 [place] [address] PCP - General Family Medicine 02/08/24 Anila Faustin PharmD 230 [place] [address] Pharmacist Internal Medicine 06/05/24 [facility] 07/23/24 documented as of this encounter
--- OUTSIDE RECORDS SUMMARY | 2025-03-24 18:16 | XMS_ITS | Encounter Summary ---
Author Organization [employer] Address 75 [facility] 7t [place] [address] Care Team Providers Care Blower Feeder Dyed Raw Stock Name Role Phone Ruthie SchwarzP Primary Care Provider Yamile Ramsay BANK ACCOUNTANT Primary Care Provider Gemini Messer PLANT CARE WORKER Primary Care Provider [phone] Anila Faustin PharmD Unavailable Reason for Visit * Reason Onset Date Comments X-ray request 09/04/2023 Encounter Details Date Type Department Care Team (Late st Contact Info) Description 09/04/2023 Telephone [facility] 230 [place] [address] Ruthie Schwarz FNP [address] [place], [place] [phone] X-ray request Social History Tobacco Use Types [...] out about an inch. Fax number is [phone]. Stated to Saima would send message to [...] it is urgent please call Jen at [phone] documented in this encounter Plan of Treatment Upcoming Encounters Date Type Department Care Team (Late st Contact Info) Description 04/01/2025 2:30 PM EST Medication Management [facility] [address] [place] [address] Anila Faustin, PharmD 230 [place] [address] 08/18/2025 2:00 PM EDT Office Visit [facility] [address] [place] [address] Clarissa Witt, OD [address] [place] [address] documented as of this encounter Visit Diagnoses Not on filedocumented in this encounter Care Teams Blower Feeder Dyed Raw Stock Relationship Specialty Start Date End Date Ruthie Schwarz FNP 230 [place] [address] PCP - General Family Medicine 11/25/21 01/23/24 Yamile Ramsay FNP 230 [place] [address] PCP - General Family Medicine 01/24/24 02/01/24 Gemini Messer NP 230 [place] [address] PCP - General Family Medicine 02/08/24 Anila Faustin PharmD 230 [place] [address] Pharmacist Internal Medicine 06/05/24 [facility] 07/23/24 documented as of this encounter
--- OUTSIDE RECORDS SUMMARY | 2025-03-24 18:16 | XMS_ITS | Encounter Summary ---
Author Organization [employer] Address 75 [facility] 7t [place] [address] Care Team Providers Care Lead Oracle Developer Name Role Phone Gemini Messer NP Primary Care Provider [phone] Anila Faustin PharmD Unavailable [phone] Reason for Visit * Reason Comments Med Refill Encounter Details Date Type Department Care Team ([facility] st Contact Info) Description 07/11/2024 Refill [facility]S [address] [place] [address] Gemini Messer NP 230 [place] [address] Pain Social History Tobacco Use Types Packs/Day [...] PM EST Medication Management [facility] [address] [place] [address] Anila Faustin PharmD 230 [place] [address] 08/18/2025 2:00 PM EDT Office Visit [facility] OPT[facility] [address] [place] [address] Clarissa Witt, OD 267 [place] [address] documented as of this encounter Visit Diagnoses Diagnosis Pain Generalized pain documented in this encounter Additional Health Concerns Assessment Noted Time PHQ-9 Depression Total Score: 11 025 1:12 PM EST documented as of this encounter Care Teams Lead Oracle Developer Relationship Specialty Start Date End Date Gemini Messer NP [address] [place] [address] PCP - General Family Medicine 02/08/24 PuiaAnila PharmD [address] [place] [address] Pharmacist Internal Medicine 06/05/24 [facility] 07/23/24 documented as of this encounter
--- OUTSIDE RECORDS SUMMARY | 2025-03-24 18:16 | XMS_ITS | Encounter Summary ---
Author Organization [employer] Address [address] [place] [address] 7t [place] [address] Care Team Providers Care Natural Fabricator Name Role Phone Ruthie Schwarz COMMERCIAL FIELD INSPECTOR Primary Care Provider [phone] Yamile Ramsay COMMERCIAL FIELD INSPECTOR Primary Care Provider Gemini Messer LAST CHALKER Primary Care Provider [phone] Anila Faustin PharmD Unavailable Encounter Details Date Type Department Care Team (Late st Contact Info) Description 08/02/2022 Orders Only [facility]S [address] [place] [address] Payton Knutson LPN Social History Tobacco Use [...] 04/01/2025 2:30 PM EST Medication Management [facility] [address] [place], [place] [phone] PuiaRickieAnila, PharmD 230 [place], [place] [phone] 08/18/2025 2:00 PM EDT Office Visit [facility] [address] [place], [place] [phone] Clarissa Witt, OD 267 [place] [address] documented as of this encounter Visit Diagnoses Not on filedocumented in this encounter Care Teams Natural Fabricator Relationship Specialty Start Date End Date Ruthie Schwarz FNP 230 [place] [address] PCP - General Family Medicine 11/25/21 01/23/24 Yamile Ramsay FNP 230 [place] [address] PCP - General Family Medicine 01/24/24 02/01/24 Gemini Messer NP 230 [place] [address] PCP - General Family Medicine 02/08/24 Anila Faustin PharmD [address] [place] [address] Pharmacist Internal Medicine 06/05/24 [facility] Care 07/23/24 documented as of this encounter
--- OUTSIDE RECORDS SUMMARY | 2025-03-24 18:16 | XMS_ITS | Encounter Summary ---
Author Organization [employer] Address [address] [place] [address] 7t [place] [address] Care Team Providers Care Size Worker Name Role Phone Ruthie SchwarzP Primary Care Provider Yamile Ramsay VARNISH MELTER Primary Care Provider Gemini Messer NURSE ADVOCATE Primary Care Provider [phone] Puia, Anila PharmD Unavailable Reason for Visit * Reason Comments Med Refill Encounter Details Date Type Department Care Team (Late st Contact Info) Description 09/29/2023 Refill [facility] [address] [place] [address] Ruthie Schwarz FNP [address] [place], [place] [phone] Type 2 diabetes mellitus treated with insulin ([facility]) Social History Tobacco Use [...] EST Medication Management [facility] [address] [place] [address] Puia, Anila, PharmD 230 [place], [place] [phone] 08/18/2025 2:00 PM EDT Office Visit [facility] [address] [place] [address] Clarissa Witt, OD 267 [place] [address] documented as of this encounter Visit Diagnoses Diagnosis Type 2 diabetes mellitus treated with insulin (HCC) documented in this encounter Care Teams Size Worker Relationship Specialty Start Date End Date Ruthie Schwarz FNP 230 [place] [address] PCP - General Family Medicine 11/25/21 01/23/24 Yamile Ramsay FNP [address] [place] [address] PCP - General Family Medicine 01/24/24 02/01/24 Gemini Messer NP [address] [place] [address] PCP - General Family Medicine 02/08/24 Anila Faustin PharmD [address] [place] [address] Pharmacist Internal Medicine 06/05/24 [facility] Care 07/23/24 documented as of this encounter
--- OUTSIDE RECORDS SUMMARY | 2025-03-24 18:16 | XMS_ITS | Data Portability ---
Author Organization [employer] [facility], [place] [employer] [facility] Address [address] [place] [address] Care Team Providers Care Junior Accountant Name Role Phone HIM CCA OTHER Unavailable [...] Orders doxycycline hyclate 100 mg capsule 2023 [facility], [address] [place] [address], [id number], 10:35:27 doxycycline hyclate 100 mg tablet [facility] [address] [place] [address], [id number], 17:45:25 Patient TargetsNo targets recorded. Patient InstructionsNo instructions recorded. Reason for Referral None Reported. Medical Equipment None Reported. Allergies Allergen ID Allergen Name Allergen Category Reaction Reaction Severity Criticality Documentation Date Start Date Code Code System Note Provider Name and Address Organization Details Recorded Time 5761 Cial[facility] medicatio n Not available Not available Not available 11/02/2023 87172 3 RxNorm Mabel Goddard MD [address] [place] [address],[address], [place], [address], [employer] 13:39:30 Medications Name Sig Start Date Stop [...] Available No t Available omeprazole 20 mg capsule,hloli yed release TAKE 1 CAPSULE BY MOUTH [...] 4 99 % 16 /min 97.1 [degF] 16265.3 2 g 182.88 cm 84 /min 122/83 mm[Hg] Not Available [employer] 4 13:35:39 Date Recorded Body weight Body height Body temperature Oxygen saturation Respiratory rate Heart rate Systolic And Diastolic Provider Name and Address Organization Details Last Updated DateTime 4 43437.6 g 172.72 cm 98.4 [degF] 98 % 14 /min 80 /min 138/72 mm[Hg] Not Available [employer] 17:34:38 Social History None recorded. Functional Status None recorded. Mental Status None recorded. Family History Nothing Reported. Medical History No medical history recorded. Past Encounters Encounter ID Performer Location Encounter Start Date Encounter Closed Date Diagnosis/Indication Diagnosis SNOMED-CT Code Diagnosis ICD10 Code Diagnosis IMO Codes Diagnosis Note [id number] Mabel Goddard MD [facility] - [address] [phone] 11/02/2023 13:35:26 11/05/2023 21:50:53 Diabetic foot ulcer 487427821 E13.621 [id number] Juan Antonio Sun MD [facility] - [address] [phone] 01/23/2024 17:34:23 01/24/2024 00:02:04 Cellulitis of left lower limb [id number] 3229973 L03.116 Health Concerns Section Related Observation LastModified by Organization Detai ls LastModified Time None Recorded Concern Status LastModified by Organization Details LastModified Time None Recorded Advance Directives Directive None Recorded Payers Insurance Date Sequence Insurance Name Policy Number Policy Dubose Covered Member ID Dubose Member ID Guarantor Name 02/06/[address] [facility] - DOS ON OR AFTER 2022 - DUAL ELIGIBLE - NURSING HOME OPTIONS AND ONE CARE (MEDICARE REPLACEMENT/ADV ANTAGE - HMO) Mckinley Berry [id number] Mckinley Berry Notes Date Note Type Note Provider Name and Address Organization Details Recorded Time 11/02/2023 text/html HPI: blood sugar in 300s, open wound near toes on right foot Member is followed by ID due to h/o sepsis .................... .................... .................... .................... .................... .................... .................... . CRC Nurse Triage Notes (Amy Johnston): Chief Complaints: Wound Care PMH: Diabetes, Hypertension Other Allergies: tadalafil Comments: Director Of Land verified the member's name//address and phone number. [...] .................... .................... .................... .................... .................... .................... . Balance Recesser Note From Cheng Sapp: Smartcare visit for [...] Affected toe's examined with images sent to [facility]. Consulted with [facility] Dr. Goddard who said she would put in request to PCP to have patient seen sooner to address issues and get possible xray of the foot. Reviewed red flags for ED. Patient education provided. .................... .................... .................... .................... .................... .................... .................... . Disposition: Yvonne Goddard MD [address] [facility], [place], [address], [employer] 11/02/2023 15:00:39 01/23/2024 text/html HPI: anxiety, chronic [...] CRC RN DID NOT NEED FURTHER INFO Balance Recesser Organization Information for [employer] Legal Name: [facility] Transportation Address: [address] [place] [place] [address], [place] [address], Globe Tester: Kehinde JACOBSON No.: [id number] Balance Recesser POC Test Results from Dallin Lawrence - [facility] Blood Glucose Measurement (17:15:08) Blood Glucose: 328 mg/dL .................... .................... .................... .................... .................... .................... .................... . Balance Recesser Note From Dallin Lawrence: Patient conscious and [...] extra heat, discolored discharge, or current bleeding noted.[facility] orders doxycycline 200 mg PO now and will call in more to patient s local pharmacy. Supportive care, including cleaning and use of triple antibiotic ointment discussed. Red flags, and patient education discussed.Note: [id number]. entry level marketing representative in test section of this report incorrect. Patient s BGL equals 228 MG/DL [facility] Medication Orders: doxycycline hyclate 100 mg tablet: Administered .................... .................... .................... .................... .................... .................... .................... . Disposition: Fulfilled Juan Antonio Sun MD [address] [place] [address],[address], [place], [address], [employer] [facility] 01/23/2024 20:59:30
--- OUTSIDE RECORDS SUMMARY | 2025-03-24 18:16 | XMS_ITS | Encounter Summary ---
Author Organization [employer] Address [address] [place] [address] 7t [place] [address] Care Team Providers Care Core Setter Name Role Phone Heathgris Gemini NOLASCO Primary Care Provider [phone] Anila Faustin PharmD Unavailable [phone] Reason for Referral * Consultation (Routine) - Pending Review Specialty Diagnoses / Procedures Referred By Contfelton t Referred To Contact Pharmacy Diagnoses Hyperlipidemia associated with type 2 diabetes mellitus (HCC) Myrtle Padgett MD [address] [place] [address] Phone: tel: fax: Referral ID Status Reason Start Date Expiration Date Visits Requested Visits Authorized [id number] Pending Review Consult and Treat 05/06/2024 05/06/2025 12 12 Encounter Details Date Type Department Care Team (Late st Contact Info) Description 05/06/2024 Orders Only [facility] [address] [place], [place] [phone] Myrtle Padgett MD [address] [place], [place] [phone] Hyperlipidemia associated with type 2 diabetes mellitus [...] 04/01/2025 2:30 PM EST Medication Management [facility] [address] [place] [address] Anila Faustin, PharmD [address] [place] [address] 08/18/2025 2:00 PM EDT Office Visit [facility] [address] [place] [address] Clarissa Witt, OD [address] [place] [address] Scheduled Referrals Name Type Priority Associated Diagnoses [...] documented as of this encounter Care Teams Core Setter Relationship Specialty Start Date End Date Gemini Messer NP 230 [place] [address] PCP - General Family Medicine 02/08/24 Anila Faustin PharmD [address] [place] [address] Pharmacist Internal Medicine 06/05/24 [facility] 07/23/24 documented as of this encounter
--- OUTSIDE RECORDS SUMMARY | 2025-03-24 18:16 | XMS_ITS | Encounter Summary ---
Author Organization [employer] Address 75 [facility] 7t [place] [address] Care Team Providers Care Uniform Room Attendant Name Role Phone Gemini Messer NP Primary Care Provider [phone] Anila Faustin PharmD Unavailable [phone] Encounter Details Date Type Department Care Team ([facility] st Contact Info) Description 02/14/2025 Results Follow-Up [facility] [address] [place] [address] Gemini Messer NP [address] [place] [address] Glucose, Whole Blood, CBC auto differential, Lactic [...] 2:30 PM EST Medication Management [facility] [address] [place] [address] Anila Faustin PharmD 230 [place] [address] 08/18/2025 2:00 PM EDT Office Visit [facility] OPT[facility] [address] [place] [address] Tarka, Clarissa, OD [address] [place] [address] documented as of this encounter Goals Goal [...] documented as of this encounter Care Teams Uniform Room Attendant Relationship Specialty Start Date End Date Gemini Messer NP [address] [place] [address] PCP - General Family Medicine 02/08/24 Anila Faustin PharmD 230 [place] [address] Pharmacist Internal Medicine 06/05/24 [facility] 07/23/24 documented as of this encounter
--- OUTSIDE RECORDS SUMMARY | 2025-03-24 18:16 | XMS_ITS | Encounter Summary ---
Author Organization [employer] Address 75 [facility] 7t [place] [address] Care Team Providers Care Event Sales Representative Name Role Phone Gemini Messer NP Primary Care Provider [phone] Anila Faustin PharmD Unavailable [phone] Reason for Visit * Reason Comments Med Refill Encounter Details Date Type Department Care Team (Late st Contact Info) Description 08/07/2024 Refill [facility] [address] [place], [place] [phone] Gemini Messer NP [address] [place] [address] Type 2 diabetes mellitus treated with insulin ([facility]) Social History Tobacco Use Types Packs/Day Years [...] 2:30 PM EST Medication Management [facility] [address] [place] [address] Anila Faustin, PharmD [address] [place] [address] 08/18/2025 2:00 PM EDT Office Visit [facility] OPTOMETRY [address] [place] [address] Clarissa Witt, OD [address] [place] [address] documented as of this encounter Visit Diagnoses Diagnosis Type 2 diabetes mellitus treated with insulin (HCC) documented in this encounter Additional Health Concerns Assessment Noted Time PHQ-9 Depression Total Score: 11 025 1:12 PM EST documented as of this encounter Care Teams Event Sales Representative Relationship Specialty Start Date End Date Gemini Messer NP [address] [place] [address] PCP - General Family Medicine 02/08/24 Anila Faustin, Connie [address] [place] [address] Pharmacist Internal Medicine 06/05/24 [facility] 07/23/24 documented as of this encounter
--- OUTSIDE RECORDS SUMMARY | 2025-03-24 18:16 | XMS_ITS | Encounter Summary ---
Author Organization [employer] Address 75 [facility] 7t [place] [address] Care Team Providers Care Car Sander Name Role Phone Gemini Messer NP Primary Care Provider [phone] Anila Faustin PharmD Unavailable [phone] Reason for Visit * Reason Onset Date Comments pre op 02/20/2025 Encounter Details Date Type Department Care Team (Late st Contact Info) Description 02/20/2025 Telephone [facility] [address] [place], [place] [phone] Gemini Messer NP [address] [place] [address] pre op Social History Tobacco Use Types [...] was unaware of his upcoming surgery at [facility] on 03-07-2025 pt was advice to contact [facility] and get more details if he is ok with surgery to contact [facility] so we are able to book his pre-op appointment pt agreed to plan. * Telephone Encounter - Elliot Giron - 02/20/2025 3:16 PM EST Date of Surgery: 03/07 Surgical procedure being done: right toe amputation Type of anesthesia: general anesthesia Lab needed: Yes EKG: Yes Surgeon's name: Dr Billingsley Facility name: [facility] podiatist Surgeon's office number: [phone] Surgeon's office fax number: [phone] Contact name (person you spoke with): Mary Anne Last office note from surgeon requested: No Send Message to Junior Sanchez documented in this encounter Plan of Treatment Upcoming Encounters Date Type Department Care Team (Late st Contact Info) Description 04/01/2025 2:30 PM EST Medication Management [facility] [address] [place] [address] Puia, Anila, PharmD 230 [place] [address] 08/18/2025 2:00 PM EDT Office Visit [facility] OPTOMET[facility] [address] [place] [address] Tarka, Clarissa, OD [address] [place] [address] documented as of this encounter Goals Goal [...] Plan Patient has diabetic neuropathy No Puia, Anlia, PharmD Weekly blood pressure task Care Plan [...] Plan Patient has diabetic neuropathy No Dominique uHi RN Patient has diabetic neuropathy Care Plan [...] has chronic kidney disease No Gemini Messer HOMICIDE SQUAD SERGEANT Patient has chronic kidney disease Care Plan Patient has chronic kidney disease No Gemini Messer HOMICIDE SQUAD SERGEANT Patient has chronic kidney disease Care Plan [...] documented as of this encounter Care Teams Car Sander Relationship Specialty Start Date End Date Gemini Messer NP 230 [place] [address] PCP - General Family Medicine 02/08/24 Anila Faustin PharmD [address] [place] [address] Pharmacist Internal Medicine 06/05/24 [facility] 07/23/24 documented as of this encounter
--- OUTSIDE RECORDS SUMMARY | 2025-03-24 18:16 | XMS_ITS | Encounter Summary ---
Author Organization [employer] Address [address] [place] [address] 7[address] [place] [address] Care Team Providers Care Typesetters Printer Name Role Phone Ruthie Schwarz BRUSH OPERATOR Primary Care Provider Yamile Ramsay BRUSH OPERATOR Primary Care Provider [phone] Gemini Messer SHOE REPAIRER Primary Care Provider [phone] Anila Faustin PharmD Unavailable Encounter Details Date Type Department Care Team (Late st Contact Info) Description 05/25/2022 Orders Only [facility] [address] [place] [address] Payton Knutson LPN Social History Tobacco Use [...] Description 04/01/2025 2:30 PM EST Medication Management [facility] [address] [place], [place] [phone] PuiaRickieAnila, PharmD [address] [place], [place] [phone] 08/18/2025 2:00 PM EDT Office Visit [facility] [address] [place], [place] [phone] Clarissa Witt, OD 267 [facility] [place] [address] documented as of this encounter Visit Diagnoses Not on filedocumented in this encounter Care Teams Typesetters Printer Relationship Specialty Start Date End Date Ruthie Schwarz FNP [address] [place] [address] PCP - General Family Medicine 11/25/21 01/23/24 Yamile Ramsay FNP [address] [place] [address] PCP - General Family Medicine 01/24/24 02/01/24 Gemini Messer NP [address] [place] [address] PCP - General Family Medicine 02/08/24 Anila Faustin PharmD [address] [place] [phone] Pharmacist Internal Medicine 06/05/24 [facility] 07/23/24 documented as of this encounter
--- OUTSIDE RECORDS SUMMARY | 2025-03-24 18:16 | XMS_ITS | Encounter Summary ---
Author Organization [employer] Address [address] [place] [address] 7[address] [place] [address] Care Team Providers Care Shellfish Harvester Name Role Phone Ruthie Schwarz FIRST ASSISTANT Primary Care Provider Yamile Ramsay FIRST ASSISTANT Primary Care Provider Gemini Messer DATA ENTRY EMAIL PROCESSOR Primary Care Provider [phone] Anila Faustin PharmD Unavailable Encounter Details Date Type Department Care Team (Late st Contact Info) Description 06/22/2022 Orders Only [facility] [address] [place] [address] Payton Knutson LPN Social History Tobacco Use [...] Description 04/01/2025 2:30 PM EST Medication Management [facility] [address] [place], [place] [phone] PuiaRickieAnila, PharmD [address] [place], [place] [phone] 08/18/2025 2:00 PM EDT Office Visit [facility] [address] [place], [place] [phone] Clarissa Witt, OD 267 [facility] [place] [address] documented as of this encounter Visit Diagnoses Not on filedocumented in this encounter Care Teams Shellfish Harvester Relationship Specialty Start Date End Date Ruthie Schwarz FNP [address] [place] [address] PCP - General Family Medicine 11/25/21 01/23/24 Yamile Ramsay FNP [address] [place] [address] PCP - General Family Medicine 01/24/24 02/01/24 Gemini Messer NP [address] [place] [address] PCP - General Family Medicine 02/08/24 Anila Faustin PharmD [address] [place] [phone] Pharmacist Internal Medicine 06/05/24 [facility] 07/23/24 documented as of this encounter
--- OUTSIDE RECORDS SUMMARY | 2025-03-24 18:16 | XMS_ITS | Encounter Summary ---
Author Organization [employer] Address [address] [place] [address] [address] [place] [address] Care Team Providers Care Assembler Convertible Top Name Role Phone Ruthie Schwarz VALIDATION ANALYST Primary Care Provider Yamile Ramsay VALIDATION ANALYST Primary Care Provider [phone] Gemini Messer RECREATION ASSISTANT Primary Care Provider [phone] Puia, Anila PharmD Unavailable Reason for Visit * Reason Comments Med Refill Encounter Details Date Type Department Care Team (Late st Contact Info) Description 03/15/2023 Refill [facility] [address] [place], [place] [phone] Suzy Escobar MD [address] [place], [place] [phone] Neuropathic pain; Type 2 diabetes mellitus with hyperglycemia, unspecified whether alf insulin use (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 technician insulin use (HCC) Primary hypertension Unspecified essential hypertension documented in this encounter Care Teams Assembler Convertible Top Relationship Specialty Start Date End Date Ruthie Schwarz FNP [address] [place] [address] PCP - General Family Medicine 11/25/21 01/23/24 Yamile Ramsay FNP [address] [place] [address] PCP - General Family Medicine 01/24/24 02/01/24 Gemini Messer NP [address] [place] [address] PCP - General Family Medicine 02/08/24 Anila Faustin PharmD [address] [place] [phone] Pharmacist Internal Medicine 06/05/24 [facility] 07/23/24 documented as of this encounter
--- OUTSIDE RECORDS SUMMARY | 2025-03-24 18:16 | XMS_ITS | Clinical Summary ---
Author Organization [employer] Address [address] [place] [address] [address] [place] [address] Care Team Providers Care Inspector Outside Production Name Role Phone Gui Gemini NOLASCO Primary Care Provider [phone] Anila Faustin PharmD Unavailable [phone] Allergies Active Allergy Reactions Criticality Noted [...] the morning. 01/19/20 24 Active Continuous Glucose Clinical Care Coordinator (FreeStyle Lenny 3 [place]) deviceIndicatio ns:Type 2 diabetes mellitus with hyperglycemia, [...] complication, with long-term current use of insulin ([facility]) TAKE 1 TABLET BY MOUTH EVERYDAY AT [...] hyperglycemia, with long-term current use of insulin ([facility]) TEST BG four times daily DIRECTED 100 each 11 5 3:25 PM EST 07/31/19 25 2025 Active TRUEplus Lancets 33G miscIndications :Type 2 diabetes mellitus with hyperglycemia, with long-term current use of insulin ([facility]) TEST BLOOD SUGAR FOUR TIMES DAILY 100 [...] Active insulin pen needle (TechLite Plus Pen Berkley) 32G x 4 mm miscIndications :Diabetic nephropathy [...] 2 diabetes mellitus with hyperglycemia, unspecified whether tank terminal gauger insulin use (HCC) USE DIRECTED TEST BLOOD [...] 2 diabetes mellitus with hyperglycemia, unspecified whether tank terminal gauger insulin use (HCC) TAKE 1 TABLET BY [...] result -cologuard order placed Osteomyelitis of foot ([facility]) 06/03/2024 Assessment & Plan (07/25/2024 11:29 AM [...] assist with this -patient is referred to [facility] program for diabetes mellitus management Assessment & [...] with PCP Stage 3 chronic kidney disease ([facility]) 021 03/22/2023 Hyperkalemia 07/02/2020 03/22/2023 Diabetic nephropathy [...] DEPARTMENT Provider, Generic External Data 03/06/[address] [facility] [address] [place] [address] Karla Barnes, RN 03/03/[address] [facility] [address] [place], [place] [phone] Gemini Messer NP Depressive disorder 03/02/[address] [facility] [address] [place], [place] [phone] Gemini Messer NP Depressive disorder 02/25/2025 2:00 PM EST Office Visit [address] [address] Gemini Messer NP Pre-op examination (Primary Dx); Type 2 diabetes mellitus with hyperglycemia, with long-term current use of insulin (HCC) 02/25/2025 Travel 02/25/[address] [address] Karla Barnes RN 02/24/[address] [address] Gemini Messer NP Chart Prep 02/20/[address] [address] Gemini Messer NP pre op 02/19/2025 Orders Only GENERIC EXTERNAL DATA DEPARTMENT Provider, Generic External Data 02/14/2025 Results Follow-Up [facility] [address] [place] [phone] Gemini Messer NP Glucose, Whole Blood, CBC auto differential, Lactic Acid, Additional followed-up results: 4 02/14/2025 Results Follow-Up [facility] [address] [place] [phone] Gemini Messer NP POCT Hgb A1c 02/13/2025 3:20 PM EST Office Visit [facility] [address] [place] [phone] Suzy Escobar MD Diabetic infection of right foot (HCC) (Primary Dx) 02/13/2025 Orders Only GENERIC EXTERNAL DATA DEPARTMENT Provider, Generic External Data 02/13/[address] [address] Dominique Hui, TUFTING MACHINE OPERATOR SINGLE NEEDLE Expect 02/13/2025 Travel 02/05/2025 Refill [facility] [address] [place] [address] Gemini Messer NP Type 2 diabetes mellitus with hyperglycemia, unspecified whether tank terminal gauger insulin use (HCC); Type 2 diabetes mellitus treated with insulin (HCC) 01/30/[address] [facility] [address] [place] [address] Gemini Messer NP Primary hypertension 01/14/[address] [facility] [address] [place] [address] Gemini Messer NP Moderate persistent asthma with (acute) exacerbation 01/14/2025 Travel 01/11/2025 11:40 AM EDT Office Visit [facility] [address] [place] [address] Frank Purdy MD Moderate persistent asthma with (acute) exacerbation (Primary Dx) 01/11/2025 Travel 01/06/[address] [facility] [address] [place] [address] Gemini Messer NP 12/23/[address] [facility] [address] [place] [address] Gemini Messer NP Moderate asthma, unspecified whether [...] 04/01/2025 2:30 PM EST Medication Management [facility] [address] [place] [address] Anila Faustin, PharmD [address] [place] [address] 08/18/2025 2:00 PM EDT Office Visit [facility] [address] [place] [address] Clarissa Witt, OD [address] [place] [address] Health Maintenance Due Date Last Done Comments [...] Weekly blood pressure task No Gemini Messer CONDUIT REAMER OPERATOR Weekly blood pressure task Care Plan Weekly blood pressure task No Gemini Messer, CONDUIT REAMER OPERATOR Weekly blood pressure task Care Plan Weekly blood pressure task No Gemini Messer, CONDUIT REAMER OPERATOR Patient has chronic kidney disease Care Plan Patient has chronic kidney disease No Gemini Messer, CONDUIT REAMER OPERATOR Patient has chronic kidney disease Care Plan Patient has chronic kidney disease No Gemini Messer, CONDUIT REAMER OPERATOR Patient has chronic kidney disease Care Plan Patient has chronic kidney disease No Gemini Messer, CONDUIT REAMER OPERATOR Patient has diabetic neuropathy Care Plan Patient has diabetic neuropathy No Gemini Messer CONDUIT REAMER OPERATOR Patient has diabetic neuropathy Care Plan Patient has diabetic neuropathy No Gemini Messer, CONDUIT REAMER OPERATOR Patient has diabetic neuropathy Care Plan Patient has diabetic neuropathy No Gemini Messer CONDUIT REAMER OPERATOR Weekly blood pressure task Care Plan Weekly blood pressure task No Gemini Messer CONDUIT REAMER OPERATOR Weekly blood pressure task Care Plan Weekly blood pressure task No Gemini Messer CONDUIT REAMER OPERATOR Weekly blood pressure task Care Plan Weekly blood pressure task No Gemini Messer, CONDUIT REAMER OPERATOR Patient has chronic kidney disease Care Plan Patient has chronic kidney disease No Gemini Messer, CONDUIT REAMER OPERATOR Patient has chronic kidney disease Care Plan Patient has chronic kidney disease No Gemini Messer CONDUIT REAMER OPERATOR Patient has chronic kidney disease Care Plan Patient has chronic kidney disease No Gemini Messer, CONDUIT REAMER OPERATOR Patient has diabetic neuropathy Care Plan Patient has diabetic neuropathy No Gemini Messer, CONDUIT REAMER OPERATOR Patient has diabetic neuropathy Care Plan Patient has diabetic neuropathy No Gemini Messer, CONDUIT REAMER OPERATOR Patient has diabetic neuropathy Care Plan Patient has diabetic neuropathy No Gemini Messer CONDUIT REAMER OPERATOR Weekly blood pressure task Care Plan [...] blood pressure task No Mynor Yaneth Jules, [place] Patient has chronic kidney disease Care Plan Patient has chronic kidney disease No Mynor Yaneth Jules, [place] Patient has chronic kidney disease Care Plan Patient has chronic kidney disease No Mynor Yaneth Jules, [place] Patient has chronic kidney disease Care Plan Patient has chronic kidney disease No Mynor Yaneth Jules, [place] Patient has diabetic neuropathy Care Plan Patient has diabetic neuropathy No Mynor Yaneth Jules, J[place] Patient has diabetic neuropathy Care Plan Patient has diabetic neuropathy No Mynor Jules, Yaneth, [place] Patient has diabetic neuropathy Care Plan Patient [...] Weekly blood pressure task No Zenia Payton, BODY ARTIST Weekly blood pressure task Care Plan Weekly blood pressure task No Zenia, Payton, BODY ARTIST Weekly blood pressure task Care Plan Weekly blood pressure task No Zenia Payton, BODY ARTIST Patient has chronic kidney disease Care Plan Patient has chronic kidney disease No Zenia Payton, BODY ARTIST Patient has chronic kidney disease Care Plan Patient has chronic kidney disease No Zenia, Payton, BODY ARTIST Patient has chronic kidney disease Care Plan Patient has chronic kidney disease No Zenia Payton, BODY ARTIST Patient has diabetic neuropathy Care Plan Patient has diabetic neuropathy No Zenia Payton, BODY ARTIST Patient has diabetic neuropathy Care Plan Patient has diabetic neuropathy No Zenia, Payton, BODY ARTIST Patient has diabetic neuropathy Care Plan Patient has diabetic neuropathy No Zenia, Payton, BODY ARTIST Weekly blood pressure task Care Plan Weekly [...] Patient has diabetic neuropathy No Karla Barnes, branch officer Procedure Name Priority Date/Time Associated Diagnosis Comments MR FOOT W AND WO CONTRAST RIGHT Routine 03/24/2025 3:16 PM EST MAGNESIUM Routine 03/18/2025 2:15 PM EST BASIC [...] 5:54 PM EST Pre-op examination POCT GLUCOSE ([id number]) Routine 02/25/2025 1:57 PM EST Type 2 [...] Recently Relevant to Health Maintenance Results * MR Foot w/ and w/o Contrast Right (03/24/2025 3:16 PM EST) Anatomical Region Laterality Modality Lower Extremities, Foot Right Magnetic Resonance 03/24/2025 3:16 PM EST Narrative 03/24/2025 4:06 PM EST [address] [address] Magnetic Resonance Report Signed Patient: Mckinley Berry MR#: [id number] 2031 : 1965 Acct:[id number] Age/Sex: 59 / M ADM Date: 03/24/25 Loc: HO.MRI Attending Dr: Tali Resendez DPGris Ordering Physician: Tali Resendez DPM Date of Service: 03/24/25 Procedure(s): MR foot RT wo/w con Accession Number(s): [id number] cc: [facility]; Tali Resendez DPM Reason for Exam: M86.9 - Osteomyelitis, unspecified EXAMINATION: MR FOOT WITHOUT CONTRAST, RIGHT CLINICAL INFORMATION: Right erythema and swelling, erosive changes involving the tuft of third digit on prior x-ray, evaluate for osteomyelitis COMPARISON: X-ray of 02/13/2025 and 03/25/2024, MRI April 17, 2024 TECHNIQUE: MRI of the right foot was attempted without contrast FINDINGS: The patient elected to terminate the study early due to anxiety. 2 Localizer scans were performed and demonstrate no gross abnormality, nondiagnostic and very limited study. MR/MR foot RT wo/w con IMPRESSION: Aborted exam Electronically signed by: Severiano Juarez MD 03/24/2025 04:03 PM [facility] Dictated By: Severiano Juarez MD Signed By: <Electronically signed by Severiano Juarez MD in OV> 03/24/25 1603 DD/ 1516 TD/TT: 03/24/25 1520 Motor Grader Rough Grade: Procedure Note Donotuseinterpreter, Image - 03/24/2025 [place] [address] Magnetic Resonance Report Signed Patient: Mckinley Berry [facility]#: [id number] 2032 : 1965Acct:[id number] Age/Sex: 59 / MADM Date: 03/24/25 Loc: HO.MRI Attending Dr: Tali Resendez DPM Ordering Physician: Tali Resendez DPM Date of Service: 03/24/25 Procedure(s): MR foot RT wo/w con Accession Number(s): [id number] cc: [facility]; Tali Resendez DPM Reason for Exam: M86.9 - Osteomyelitis, unspecified EXAMINATION: MR FOOT WITHOUT CONTRAST, RIGHT CLINICAL INFORMATION: Right erythema and swelling, erosive changes involving the tuft of third digit on prior x-ray, evaluate for osteomyelitis COMPARISON: X-ray of 02/13/2025 and 03/25/2024, MRI April 17, 2024 TECHNIQUE: MRI of the right foot was attempted without contrast FINDINGS: The patient elected to terminate the study early due to anxiety. 2 Localizer scans were performed and demonstrate no gross abnormality, nondiagnostic and very limited study. MR/MR foot RT wo/w con IMPRESSION: Aborted exam Electronically signed by: Severiano Juarez MD 03/24/2025 04:03 PM EST RP Dictated By: Severiano Juarez MD Signed By: <Electronically signed by Severiano Juarez MD in OV> 03/24/25 1603 DD/ 1516 TD/TT: 03/24/25 1520 Motor Grader Rough Grade: [facility] External Provider IMG MRI PROCEDURES Final Result * High Sensitivity Troponin I (03/18/2025 2:15 PM EST) TROPONIN I HIGH SENSITIVITY 5.9 <3.5 - 35.0 ng/L [facility] Comment:The Rosenthal high sens itivity Troponin-I results should beused in conjunction with other diagnostic information suchas ECG, clinical observations and information, and patientsymptoms to aid in the diagnosis of IA. 03/18/2025 2:15 PM EST 03/18/2025 2:22 PM EST Generic External Data Provider LAB BLOOD ORDERAB LES Final Result [facility] [address] [place] [address] [phone] * SARS-CoV-2 RNA, Influenza A/B, and RSV RNA, Ql NAAT (03/18/2025 2:15 PM EST) Influenza A PCR NEGATIVE Negative [facility] Influenza B PCR NEGATIVE Negative [facility] Resp Syncy Virus RNA Qual PCR NEGATIVE Negative [facility] SARS COV2 PCR NEGATIVE Negative [facility] Comment:All test results mus t be [...] use by authorized laboratories.Testing performed on the [employer] GeneXpert utilizingreal-time RT-PCR.All SARS CoV2 and positive influenza A/B results arereported to [facility]. 03/18/2025 2:15 PM EST 03/18/2025 2:22 PM EST Generic External Data Provider LAB MICROBIOLOGY - GENERAL ORDERABLES Final Result [facility] [address] [place] [phone] * (ABNORMAL) CBC auto differential (03/18/2025 2:15 PM EST) Only the most recent of2 resultswithin the time period is included. White Blood Count 9.1 4.8 - 10.8 X10*3/uL [facility] Red Blood Count 4.50(L) 4.60 - 5.80 X10*6/uL [facility] Hemoglobin 12.9(L) 14.0 - 18.0 g/dl [facility] Hematocrit 38.3(L) 42.0 - 52.0 % [facility] Mean Corpuscular Volume 85.1 80.0 - 98.0 fL [facility] Mean Corpuscular Hemoglobin 28.7 27.0 - 33.0 pg [facility] Mean Corpuscular HGB Conc 33.7 31.0 - 36.0 g/dl [facility] Red Cell Distribution Width 13.3 11.0 - 16.0 % [facility] Platelet Count 176 160 - 400 X10*3/uL [facility] Mean Platelet Volume 11.8 9.4 - 12.4 fL [facility] Neutrophils Percent Auto 75.5(H) 45 - 73 % [facility] Imm Gran Pct Auto 0.3 0.0 - 0.4 % [facility] Lymphocytes Percent Auto 14.1(L) 20 - 40 % [facility] Monocytes Percent Auto 8.7 2 - 11 % [facility] Eosinophils Percent Auto 1.0 0 - 4 % [facility] Basophils Percent Auto 0.4 0 - 2 % [facility] NRBC Pct Auto 0.0 0.0 - 0.2 /100WBC [facility] Neutrophils Absolute Auto 6.9 2.0 - 8.3 x10*3/uL [facility] Imm Gran Abs Auto 0.03 0.00 - 0.03 X10*3/uL [facility] Lymphocytes Absolute Auto 1.3 1.2 - 4.9 X10*3/uL [facility] Monocytes Absolute Auto 0.8 0.1 - 1.2 X10*3/uL [facility] Eosinophils Absolute Auto 0.1 0.0 - 0.4 X10*3/uL [facility] Basophils Absolute Auto 0.0 0.0 - 0.2 X10*3/uL [facility] NRBC Abs Auto 0.000 0.0 - 0.012 X10*3/uL [facility] 03/18/2025 2:15 PM EST 03/18/2025 2:22 PM EST us Generic External Data Provider LAB BLOOD ORDERAB LES Final Result [facility] [address] [place] [phone] * Prothrombin Time-INR (03/18/2025 2:15 PM EST) Prothrombin Time 11.8 11.2 - 13.5 SEC [facility] INTERNATIONAL NORM RATIO 1.0 0.9 - 1.1 [facility] Comment:INTERNATIONAL NORMAL IZED RATIO (INR) [...] ORDERAB LES Final Result Performing Organization Address [facility] Co de Phone Number [facility] [address] [place] [phone] * Magnesium (03/18/2025 2:15 PM EST) Pathologist [facility] Magnesium 1.8 1.6 - 2.6 mg/dL [facility] 03/18/2025 2:15 PM EST 03/18/2025 2:22 PM EST [employer] External Data Provider LAB BLOOD ORDERAB LES Final Result Performing Organization Address [facility] de Phone Number [facility] [address] [place] [phone] * Hepatic Function Panel (03/18/2025 2:15 PM EST) Bilirubin, Total 0.3 0.0 - 1.0 mg/dL [facility] Bilirubin, Direct 0.1 0.0 - 0.5 mg/dL [facility] Aspartate Amino Transferase 21 5 - 37 U/L [facility] Alanine Aminotransferase 20 0 - 40 U/L [facility] Total Protein 7.1 6.5 - 8.0 g/dL [facility] Albumin Level 4.1 3.5 - 5.0 g/dL [facility] Alkaline Phosphatase 83 39 - 117 U/L [facility] 03/18/2025 2:15 PM EST 03/18/2025 2:22 PM EST us Generic External Data Provider LAB BLOOD ORDERAB LES Final Result [facility] [address] [place] [phone] [phone] * (ABNORMAL) Basic Metabolic Panel (03/18/2025 2:15 PM EST) Sodium 128(L) 135 - 145 mmol/L [facility] Potassium 5.0 3.3 - 5.1 mmol/L [facility] Chloride 99 96 - 108 mmol/L [facility] Carbon Dioxide 23 22 - 29 mmol/L [facility] Anion Gap 11(L) 12 - 20 [facility] Urea Nitrogen (BUN) 20(H) 9 - 16 mg/dL [facility] Creatinine, Serum 0.90 0.5 - 1.4 mg/dL [facility] Creatinine Clr Calc Pharmacy 111.9 [facility] Comment:eGFR (calculated fro m the MDRD study equation) and eCrCl(calculated from the Cockcroft-Gault equation) are based ondifferent parameters and may not yield comparable results.If eCrCl result is absurd, please check patient'sheight/weight. Estimated Glomerular Filt Rate >60 [facility] Comment:Chronic Kidney Disea se: Estimated GFR < 60 mL/min/1.86x7Uleols Kidney Disease: Estimated GFR < 15 mL/min/1.73m2 Glucose 365(HH) 60 - 115 mg/dL [facility] Comment:Critical value for G LUR: Results called to and read shirley: MARCIAL Person calling: RENE Date: 03/18/25 Time: 1459 Calcium 9.0 8.4 - 10.2 mg/dL [facility] 03/18/2025 2:15 PM EST 03/18/2025 2:22 PM EST us Generic External Data Provider LAB BLOOD ORDERAB LES Final Result [facility] [address] [place] [phone] * XR Chest 1 View (03/18/2025 1:56 PM EST) Anatomical Region Laterality Modality Chest Radiographic Rox ging 03/18/2025 1:56 PM EST Narrative 03/18/2025 2:08 PM EST [address] [address] XRay Report Signed Patient: Mckinley Berry MR#: [id number] 2031 : 1965 Acct:[id number] Age/Sex: 59 / M ADM Date: 03/18/25 Loc: .ED Attending Dr: Ordering Physician: Luna Hall DO Date of Service: 03/18/25 Procedure(s): XR chest 1V Accession Number(s): [id number] cc: Luna Hall DO; [facility] Reason for Exam: dyspnea EXAMINATION: XR [...] 03/18/25 1405 DD/ 1356 TD/TT: 03/18/25 1400 Motor Grader Rough Grade: Procedure Note Donotuseinterpreter, Image - 03/18/[address] [address] XRay Report Signed Patient: Mckinley Berry [facility]#: [id number] 2031 : 1965Acct:[id number] Age/Sex: 59 / MADM Date: 03/18/25 Loc: .ED Attending Dr: Ordering Physician: Luna Hall DO Date of Service: 03/18/25 Procedure(s): XR chest 1V Accession Number(s): [id number] cc: Luna Hall DO; [facility] Reason for Exam: dyspnea EXAMINATION: XR [...] 03/18/25 1405 DD/ 1356 TD/TT: 03/18/25 1400 Motor Grader Rough Grade: [facility] External Provider IMG XR PROCEDURES Edited Result - Final * ECG 12 lead (03/05/2025 5:54 PM EST) Narrative Gemini Messer NP - 03/05/2025 5:54 PM EST HR bpm, left axis, slightly prolonged IN interval and bundle branch block, normal morphology. Sinus rhythm ECG Result [facility] Gemini Messer NP ECG ORDERABLES Final Result * (ABNORMAL) POCT Glucose (02/25/2025 1:57 PM EST) [facility] Signature Glucose Blood, POC 256(A) 60 - 200 mg/dL QC Media Lot # [id number] Lot# Expiration Date Blood Capillary blood specimen / Unknown 02/25/2025 1:57 PM EST Gemini Messer NP POINT OF CARE TEST ENTER/EDIT O RDERABLES Final Result * Gram Stain Result (02/19/2025 10:16 AM EST) 02/19/2025 10:1 6 AM EST 02/19/2025 6:35 PM EST Comment:Toe Rt 3rd Narrative [facility] - 02/22/2025 7:36 AM EST Gram [...] Vancomycin 1(S) Specimen Source: Toe Right Third [employer] External Data Provider HISTORICAL/NON OR DERABLE LABS Final Result Performing Organization Address City/[facility]/ZIP Co de Phone Number [facility] [address] [place] [phone] * Blood Culture (Second) (02/13/2025 8:49 PM EST) Blood Venous blood specimen / Unknown 02/13/2025 8:49 PM EST 02/13/2025 8:54 PM EST Comment:Blood Narrative [facility] - 02/18/2025 10:54 PM EST Blood Culture (Second) No growth after 5 days. Specimen Source: Blood Generic External Data Provider LAB MICROBIOLOGY - GENERAL ORDERABLES Final Result Performing Organization Address City/[facility]/ZIP Co de Phone Number [facility] [address] [place] [phone] * XR Foot 3+ Views Right (02/13/2025 6:28 PM EST) Anatomical Region Laterality Modality Lower Extremities, Foot Right Radiogra phic Imaging 02/13/2025 6:28 PM EST Narrative 02/13/2025 6:29 PM EST [address] [address] XRay Report Signed Patient: Mckinley Berry MR#: [id number] 2031 : 1965 Acct:[id number] Age/Sex: 59 / M ADM Date: 02/13/25 Loc: HO.ED Attending Dr: Ordering Physician: Escobar Parker Date of Service: 02/13/25 Procedure(s): XR foot RT min 3V Accession Number(s): [id number] cc: Gemini Messer; Escobar Pakrer Reason for Exam: Right toe erythema, swollen. [...] in OV> 02/13/251828 DD/ 27 TD/TT: 02/13/251827 Motor Grader Rough Grade: Procedure Note Donotkymberlyinterpreter, Image - 11/13/[address] [address] XRay Report Signed Patient: Mckinley Berry [facility]#: [id number] 2031 : 1965Acct:[id number] Age/Sex: 59 / MADM Date: 02/13/25 Loc: HO.ED Attending Dr: Ordering Physician: Escobar Parker Date of Service: 02/13/25 Procedure(s): XR foot RT min 3V Accession Number(s): [id number] cc: Gemini Messer; Escobar Parker Reason for [...] in OV> 02/13/251828 DD/ 27 TD/TT: 02/13/251827 Motor Grader Rough Grade: [facility] External Provider IMG XR PROCEDURES Final Result * Blood Culture (First) (02/13/2025 5:12 PM EST) Blood Venous blood specimen / Unknown 02/13/2025 5:12 PM EST 02/13/2025 5:16 PM EST Comment:Blood Narrative [facility] - 02/18/2025 7:16 PM EST Blood Culture (First) No growth after 5 days. Specimen Source: Blood Generic External Data Provider LAB MICROBIOLOGY - GENERAL ORDERABLES Final Result Performing Organization Address [facility] de Phone Number [facility] [address] [place] [phone] * (ABNORMAL) Glucose, Whole Blood (02/13/2025 5:12 PM EST) Glucose, Whole Blood 120(H) 60 - 115 mg/dL [facility] Comment:METER #: [id number] 02/13/2025 5:12 PM EST 02/13/2025 5:16 PM EST Generic External Data Provider LAB BLOOD ORDERAB LES Final Result Performing Organization Address [facility] [place] Number [facility] [address] [place] [phone] * (ABNORMAL) Sed Rate by Modified Williamergren (02/13/2025 5:12 PM EST) Erythrocyte Sedimentation Rate 77(H) 0 - 15 MM/HR [facility] Comment:Patients with polycy themia and many hemoglobin abnormalitiesmay have depressed sed rates whereas patients with anemiamay have elevated sed rates. 02/13/2025 5:12 PM EST 02/13/2025 5:16 PM EST Generic External Data Provider LAB BLOOD ORDERAB LES Final Result Performing Organization Address [facility] de Phone Number [facility] [address] [place] [phone] * (ABNORMAL) C-reactive Protein (02/13/2025 5:12 PM EST) C Reactive Protein 8.07(H) < or = 0.50 mg/dL [facility] 02/13/2025 5:12 PM EST 02/13/2025 5:16 PM EST us Generic External Data Provider LAB BLOOD ORDERAB LES Final Result Performing Organization Address City/[facility]/ZIP Co de Phone Number [facility] [address] [place] [phone] * Lactic Acid (02/13/2025 5:12 PM EST) Lactic Acid 0.6 0.5 - 2.0 mmol/L [facility] 02/13/2025 5:12 PM EST 02/13/2025 5:16 PM EST Thomas Golf External Data Provider LAB BLOOD ORDERAB LES Final Result Performing Organization Address [facility] de Phone Number [facility] [address] [place] [phone] * (ABNORMAL) Comprehensive Metabolic Panel (02/13/2025 5:12 PM EST) Sodium 135 135 - 145 mmol/L [facility] Potassium 4.6 3.3 - 5.1 mmol/L [facility] Chloride 98 96 - 108 mmol/L [facility] Carbon Dioxide 30(H) 22 - 29 mmol/L [facility] Anion Gap 12 12 - 20 [facility] Urea Nitrogen (BUN) 17(H) 9 - 16 mg/dL [facility] Creatinine, Serum 0.88 0.5 - 1.4 mg/dL [facility] Creatinine Clr Calc Pharmacy 114.2 [facility] Comment:eGFR (calculated fro m the MDRD study equation) and eCrCl(calculated from the Cockcroft-Gault equation) are based ondifferent parameters and may not yield comparable results.If eCrCl result is absurd, please check patient'sheight/weight. Estimated Glomerular Filt Rate >60 [facility] Comment:Chronic Kidney Disea se: Estimated GFR < 60 mL/min/1.03d5Ztowfq Kidney Disease: Estimated GFR < 15 mL/min/1.73m2 Glucose 122(H) 60 - 115 mg/dL [facility] Calcium 9.5 8.4 - 10.2 mg/dL [facility] Bilirubin, Total 0.2 0.0 - 1.0 mg/dL [facility] Aspartate Amino Transferase 17 5 - 37 U/L [facility] Alanine Aminotransferase 16 0 - 40 U/L [facility] Total Protein 7.7 6.5 - 8.0 g/dL [facility] Albumin Level 4.2 3.5 - 5.0 g/dL [facility] Alkaline Phosphatase 84 39 - 117 U/L [facility] 02/13/2025 5:12 PM EST 02/13/2025 5:16 PM EST us Generic External Data Provider LAB BLOOD ORDERAB LES Final Result Performing Organization Address City/State/[facility] Co de Phone Number [facility] [address] [place] [phone] * (ABNORMAL) POCT Hgb A1c (02/13/2025 3:11 PM EST) Hemoglobin A1C 9.4(A) 4.0 - 5.7 % Blood 02/13/2025 3:11 PM EST Gemini Messer NP POINT OF CARE TEST ENTER/EDIT O RDERABLES Final Result * (ABNORMAL) Lipid Panel with Reflex to Direct LDL (11/12/2024 10:51 AM EDT) Triglycerides 224(H) <150 mg/dL [facility] Comment:Desirable Triglyceri de: less than 150 mg/dLBorderline High Triglyceride 150-199 mg/dLHigh Triglyceride: 200-499 mg/dLVery High Triglyceride: greater than or equal to 5OO mg/dL Cholesterol 133 <200 mg/dL [facility] Comment:Desirable Cholestero l: less than 200 mg/dLBorderline High Cholesterol: 200-239 mg/dLHigh Cholesterol: greater than 239 mg/dL LDL Cholesterol Calculated 51 <100 mg/dL [facility] Comment:Desirable LDL: less than 100 mg/dLNear Optimal/Above Optimal LDL: 110- 129 mg/dLBorderline High LDL: 130-159 mg/dLHigh LDL: 160-189 mg/dLVery High LDL: greater than or equal to 190 mg/dL HDL Cholesterol 38(L) >40 mg/dL [facility] Comment:Desirable HDL: great er than 40 mg/dL Note: This HDL assay may give artificially low results in patients with liver disease. 11/12/2024 10:5 1 AM EDT 11/12/2024 1:21 PM EDT Gemini Messer NP LAB BLOOD ORDERABLES Final Resu lt [facility] [address] [place] [address] [phone] from Last 3 Months or Most [...] 03/06/2025 Patient has diabetic neuropathy 03/06/2025 Insurance [facility] < 65 * Guarantor: Mckinley Berry Account Type Relation to Patient Date of Phone Billing Address Personal/Family Self 13 [address] [place] Care Teams Inspector Outside Production Relationship Specialty Start Date End Date Gemini Messer NP [address] [place] [phone] PCP - General Family Medicine 02/08/24 Anila Faustin PharmD [address] [place] [phone] Pharmacist Internal Medicine 06/05/24 [facility] 07/23/24
--- OUTSIDE RECORDS SUMMARY | 2025-03-24 18:16 | XMS_ITS | Encounter Summary ---
Author Organization [employer] Address [address] [place] [address] [address] [place] [address] Care Team Providers Care Fmd Teacher Name Role Phone Ruthie Schwarz CHEMICAL CHECKER Primary Care Provider [phone] Yamile Ramsay CHEMICAL CHECKER Primary Care Provider Gemini Messer DIRECTOR OF CONVENTION SERVICES Primary Care Provider [phone] PuAnila ying PharmD Unavailable Reason for Visit * Reason Onset Date Comments Nurse Triage 03/15/2023 Encounter Details Date Type Department Care Team ([facility] st Contact Info) Description 03/15/2023 Telephone [facility] [address] [place] [address] DeepakRuthie alcantar FNP [address] [place] [address] Nurse Triage Social History Tobacco Use Types [...] chart. Pt is advised to come to [facility] and Pt will come in the morning. Hours open 830am to 400pm tomorrow and Pt agrees with disposition. Pt is not suicidal and doesn't want to hurt anyone. Pt is not in distress at time of call. Advised that BH can be called in to [facility] for visit to speak with Pt [...] EST Medication Management [facility] [address] [place] [address] Anila Fuastin PharmD [address] [place] [address] 08/18/2025 2:00 PM EDT Office Visit [facility] [address] [place] [address] Clarissa Witt OD [address] [place] [address] documented as of this encounter Visit Diagnoses Not on filedocumented in this encounter Care Teams Fmd Teacher Relationship Specialty Start Date End Date Ruthie Schwarz FNP [address] [place] [phone] PCP - General Family Medicine 11/25/21 01/23/24 Yamile Ramsay FNP [address] [place] [phone] PCP - General Family Medicine 01/24/24 02/01/24 Gemini Messer NP [address] [place] [phone] PCP - General Family Medicine 02/08/24 Anila Faustin PharmD [address] [place] [phone] Pharmacist Internal Medicine 06/05/24 [facility] 07/23/24 documented as of this encounter
--- OUTSIDE RECORDS SUMMARY | 2025-03-24 18:16 | XMS_ITS | Encounter Summary ---
Author Organization [employer] Address [address] [facility] 7t [place] [address] Care Team Providers Care Airline Attendant Name Role Phone Gemini Messer NP Primary Care Provider [phone] Anila Faustin PharmD Unavailable [phone] Encounter Details Date Type Department Care Team ([facility] st Contact Info) Description 02/14/2025 Results Follow-Up [facility] [address] [place] [address] Gemini Messer NP [address] [place] [address] POCT Hgb A1c Social History Tobacco Use [...] Description 04/01/2025 2:30 PM EST Medication Management [facility] [address] [place] [address] Puia, Anila, PharmD [address] [place] [address] 08/18/2025 2:00 PM EDT Office Visit [facility] [address] [place] [address] TarkaClarissa, OD [address] [place] [address] documented as of this encounter Goals Goal [...] Plan Weekly blood pressure task No Puia, Anial, PharmD Patient has chronic kidney disease Care [...] documented as of this encounter Care Teams Airline Attendant Relationship Specialty Start Date End Date Gemini Messer NP [address] [place] [address] PCP - General Family Medicine 02/08/24 Anila Faustin PharmD [address] [place] [address] Pharmacist Internal Medicine 06/05/24 [facility] 07/23/24 documented as of this encounter
--- OUTSIDE RECORDS SUMMARY | 2025-03-24 18:16 | XMS_ITS | Encounter Summary ---
Author Organization [employer] Address [address] [facility] [address] [place] [address] Care Team Providers Care Counterintelligence/Humint Specialist Name Role Phone Heathgris Gemini NOLASCO Primary Care Provider [phone] Anila Faustin PharmD Unavailable [phone] Reason for Visit * Reason Comments Med Refill Encounter Details Date Type Department Care Team ([facility] st Contact Info) Description 07/30/2024 Refill [facility] [address] [place] [address] Ruthie Schwarz FNP [address] [place] [address] Type 2 diabetes mellitus with hyperglycemia, with long-term current use of insulin ([facility]) Social History Tobacco Use Types [...] Description 04/01/2025 2:30 PM EST Medication Management [facility] [address] [place] [address] Anila Faustin, PharmD [address] [place] [address] 08/18/2025 2:00 PM EDT Office Visit [facility] [address] [place] [address] Clarissa Witt, OD [address] [place] [address] documented as of this encounter Visit Diagnoses Diagnosis Type 2 diabetes mellitus with hyperglycemia, with long-term current use of insulin (HCC) documented in this encounter Additional Health Concerns Assessment Noted Time PHQ-9 Depression Total Score: 11 025 1:12 PM EST documented as of this encounter Care Teams Counterintelligence/Humint Specialist Relationship Specialty Start Date End Date Gemini Messer NP [address] [place] [address] PCP - General Family Medicine 02/08/24 Anila Faustin PharmD [address] [place] [phone] Pharmacist Internal Medicine 06/05/24 [facility] 07/23/24 documented as of this encounter
== END 2025-03-24 15:02 | disposition home or self-care (01) ==
LOC: HO.MRI 15:01
PROVIDERS: Visit Provider Student in an Organized Health Care Education/Training Program
DX: M79.671 Pain in right foot (principal); L97.519 Non-pressure chronic ulcer of other part of right foot with unspecified severity; M86.9 Osteomyelitis, unspecified; L97.909 Non-pressure chronic ulcer of unspecified part of unspecified lower leg with unspecified severity
CPT/HCPCS: 73720